=== PATIENT | female | born 1975 | race Two or more races ===

== ENCOUNTER 2020-05-04 11:08 | Outpatient (REF) | payer MEDICAID, SELFPAY ==
--- NOTE | 2020-05-04 11:16 | XR_ITS ---
EXAMINATION: XR SHOULDER, RIGHT CLINICAL INFORMATION: Pain. COMPARISON: None TECHNIQUE: AP external rotation, Grashey, scapular Y, and axillary views of the right shoulder. FINDINGS: The bones and soft tissues are normal. No fracture. Glenohumeral and acromioclavicular alignment is anatomic with normal joint space. There is a very small distal acromial undersurface osteophyte. No abnormal soft tissue calcifications. IMPRESSION: 1. No fracture or dislocation is seen. 2. There is a very small distal acromial undersurface osteophyte, which can be associated with rotator cuff impingement.
== END 2020-05-04 11:09 | disposition home or self-care (01) ==
LOC: HO.XRAY 11:08
PROVIDERS: PCP Internal Medicine; Visit Provider Emergency Medicine
DX: M25.511 Pain in right shoulder (principal)
CPT/HCPCS: 73030

== ENCOUNTER 2020-05-17 14:36 | Outpatient (REF) | payer MEDICAID, SELFPAY ==
--- NOTE | 2020-05-17 14:37 | MR_ITS ---
EXAMINATION: MR SHOULDER WITHOUT CONTRAST, RIGHT CLINICAL INFORMATION: Right shoulder pain COMPARISON: Radiographs 05/04/2020 TECHNIQUE: MRI of the shoulder without contrast was performed on a high-field scanner. FINDINGS: ROTATOR CUFF: Intact. No muscle atrophy or fatty infiltration. BICEPS: Normal. CORACOACROMIAL ARCH: The undersurface of the acromion is flat with no subacromial spur. There is prominent marrow edema of the distal clavicle with mild capsular edema which may represent early osteolysis. This is nonspecific and may be posttraumatic or metabolic. LABRUM/CAPSULE: Normal. GLENOHUMERAL JOINT/MARROW: No cartilage defect or joint effusion. IMPRESSION: Prominent bone marrow edema of the distal clavicle, with capsular edema. This may be posttraumatic or represent nonspecific early osteolysis. Otherwise unremarkable. No rotator cuff tear.
== END 2020-05-17 14:37 | disposition home or self-care (01) ==
LOC: HO.MRI 14:36
PROVIDERS: PCP Internal Medicine; Visit Provider Emergency Medicine
DX: M25.511 Pain in right shoulder (principal)
CPT/HCPCS: 73221

== ENCOUNTER → 2020-05-23 08:49 | Outpatient (BNVA) | payer MEDICAID, SELFPAY | PROVIDERS: Visit Provider Orthopaedic Surgery | DX: M75.01 Adhesive capsulitis of right shoulder (principal); M75.41 Impingement syndrome of right shoulder | CPT/HCPCS: 99204; 99212 ==

== ENCOUNTER 2020-06-29 14:40 | Outpatient (RCR) | payer MEDICAID, SELFPAY ==
--- NOTE | 2020-06-30 15:19 | MHC.PT.EP ---
[facility] [place] Office [place] Office [place] Office [address] [phone] F: [phone] F: [phone] F: [phone] F: [phone] Physical Therapy Plan of Care Date of Evaluation: 06/29/20 Date of Surgery: NA Diagnosis: IMPINGEMENT SYNDROME OF RIGHT SHOULDER Assessment: LEN IS A PLEASANT 44 YO FEMALE WITH INCREASING RIGHT ANTERIOR SHOULDER AND CHEST PAIN X 2 MONTHS. INITIALLY PAIN WAS IN POSTERIOR SHOULDER BUT SHE WAS ABLE TO ERFORM THEREX AND STRETCHES AT HOME WHICH SHE REPORTS SIGNIFICANTLY INCREASED HER ROM AND STRENGTH BUT PAIN IS NOW LOCATED IN ANTERIOR CHEST AND SHOULDER. IMPAIRMENTS INCLUDE DECREASED UPPER EXTREMITY ROM AND STRENGTH, ALTERED POSTURE AND POSTIONING, MUSCULAR LENGTH AND STRENGTH IMBALANCES. FUNCTIONAL LIMITATIONS INCLUDE DECREASED ABILITY TO PERFORM ADLs, HOMEMAKING AND WORK TASKS, DECREASED ABILITY TO PERFORM LIFTING, REACHING, PUSHING AN DPULLING. SHE REPORTS DISRUPTED SLEEP AND DECREASED PARTICIPATION IN RECREATIONAL ACTIVITIES. CO-MORBIDIES INCLUDE SCIATICA AND CURRENT LEFT OVARIAN CYST - OOPHERECTOMY SCHEDULED FOR FRIDAY. Frequency and Duration: The patient will be seen 2 X WEEK FOR 5 WEEKS Short Term Goals: INDEPENDENCE WITH HEP AND SELF MANAGEMENT OF SYMPTOMS IN 2 WEEKS [employer] Goals: FULL, PAIN FREE SHOULDER ROM IN [address] POBJECT O AT LEAST 3# ON SHELF ABOVE SHOULDER HEIGHT IN 5 WEEKS TO PERFORM ALL ADLs WITH PAIN NO GREATER THAN 2/10 IN 5 WEEKS Treatment Plan: Modalities to reduce pain, spasms and effusion. Manual therapy to restore motion and function. Therapeutic exercise to improve strength and flexibility. Neuromuscular re-education for posture and balance. Therapeutic activities to return to functional activities of daily living. Please sign and return to therapist. Thank you for your referral.
--- NOTE | 2020-07-27 09:01 | MHC.PT.DC ---
[facility] [place] Office [place] Office [place] Office [address] Velma Shanks 140 [facility] [phone] F: [phone] F: [phone] F: [phone] F: [phone] Physical Therapy Discharge Report Diagnosis: IMPINGEMENT SYNDROME OF RIGHT SHOULDER Date of Surgery: NA Date of Evaluation: 06/29/20 Date of Discharge: 07/01/20 Treatments to Date: 1 Cancellations to Date: No Shows to Date: Discharge Status: Discharge Summary: ATTENDED EVALUATION ONLY, CANCELLED REMAINING VISITS DUE TO HOSPITALIZATION. Electronically signed by: EDSON ALARCON PT, DPT Please sign and return to therapist. Thank you for your referral.
== END 2020-07-27 09:07 | disposition other institution (70) ==
LOC: HO.PT 14:40
PROVIDERS: PCP Internal Medicine; Visit Provider Orthopaedic Surgery
DX: M75.41 Impingement syndrome of right shoulder (principal)
CPT/HCPCS: 97162

== ENCOUNTER → 2020-09-01 11:05 | Outpatient (BNVA) | payer MEDICAID, SELFPAY | PROVIDERS: Visit Provider Internal Medicine | DX: N39.0 Urinary tract infection, site not specified (principal); Z87.440 Personal history of urinary (tract) infections | CPT/HCPCS: 99212 ==

== ENCOUNTER 2020-09-04 17:08 | Outpatient (REF) | payer MEDICAID, SELFPAY ==
[2020-09-04 17:57] LABS: Glucose Urine UA NEG (NEG); Leukocyte Esterase Urine NEG (NEG); Nitrite Urine NEG (NEG); Specific Gravity - Urine >= 1.030 (1.005-1.025); Urine Blood 1+ (NEG); Urine Ketones NEG (NEG); Urine Protein NEG (NEG-TRACE)
[2020-09-04 18:03] LABS: Anion Gap 12 (12-20); Blood Urea Nitrogen 9 mg/dL (9-16); Calcium 8.4 mg/dL (8.4-10.2); Carbon Dioxide 25 mmol/L (22-29); Chloride 106 mmol/L (96-108); Estimated Glomerular Filt Rate > 60; Glucose Random 124 mg/dL (60-115); Sodium 139 mmol/L (135-145)
[2020-09-04 18:21] LABS: Bacteria Urine 4+ /LPF; Mucus Urine 4+ /LPF; Squamous Epithelial Cell Urine 2+ /LPF
[2020-09-04 18:22] LABS: Appearance Urine HAZY; Color Urine YELLOW
== END 2020-09-04 17:09 | disposition home or self-care (01) ==
LOC: HO.LAB 17:08
PROVIDERS: PCP Internal Medicine; Visit Provider Internal Medicine
DX: N39.0 Urinary tract infection, site not specified (principal)
CPT/HCPCS: 36415; 80048; 81001; 87086; 87088; 87186

== ENCOUNTER → 2020-09-08 13:22 | Outpatient (BNVA) | payer MEDICAID, SELFPAY | PROVIDERS: Visit Provider Internal Medicine ==

== ENCOUNTER 2020-12-04 15:15 | Emergency (ER) | payer MEDICAID, SELFPAY ==
--- NOTE | ~2020-12-04 | CT_ITS ---
EXAMINATION: CT ABDOMEN AND PELVIS WITH CONTRAST CLINICAL INFORMATION: severe diarrhea, abdominal pain, vomiting COMPARISON: 11/26/2019 TECHNIQUE: Multidetector volumetric imaging was performed from the superior aspect of the liver through the pubic symphysis following administration of 100 mL Omnipaque 350 intravenous contrast. Sagittal and coronal reformatted images were obtained on the technologist workstation.. This CT examination was performed using dose optimization techniques as appropriate, variously including the following: *Automated exposure control *Adjustment of mA and/or kV according to patient size (this includes techniques or standardized protocols for targeted exams where dose is matched to indication/reason for exam; i.e. extremities or head) *Use of iterative reconstruction technique DLP: 547 mGy-cm FINDINGS: LUNG BASES: The visualized lung bases are unremarkable. LIVER, GALLBLADDER, AND BILIARY TREE: The liver is normal in size, shape, and attenuation. No focal hepatic lesion or biliary ductal dilatation is present. The gallbladder is unremarkable with no evidence of radiopaque gallstones, gallbladder wall thickening, or obvious pericholecystic inflammatory changes. PANCREAS: Unremarkable. SPLEEN: Unremarkable. ADRENAL GLANDS: Unremarkable. KIDNEYS AND URETERS: The kidneys are normal in size, shape, and attenuation. No hydronephrosis, hydroureter, or calculi seen. No perinephric stranding. BLADDER: Decompressed but otherwise unremarkable GASTROINTESTINAL TRACT: The distal colon to rectum are decompressed which makes evaluation for subtle wall thickening difficult. I do not appreciate any pericolonic inflammatory changes. There are a few scattered colonic diverticula but no evidence for focal diverticulitis. Normal-appearing appendix in the right lower quadrant. Visualized small bowel is unremarkable ABDOMINAL WALL: Postoperative changes in the midline anterior abdominal wall LYMPHOVASCULAR STRUCTURES: No lymphadenopathy. The aorta is unremarkable. Incidental phleboliths within the remaining gonadal veins bilaterally PELVIC VISCERA: Patient appears to be status post supracervical hysterectomy with slight fullness in the region of the cervix but this appearance is similar to the 09/26/2019 CT scan OSSEOUS STRUCTURES: Unremarkable. CT/CT abdomen pelvis w con IMPRESSION: The distal colon and rectum are decompressed and difficult to evaluate for any subtle underlying wall thickening but I do not appreciate any pericolonic inflammatory changes. No obstructive changes to the bowel with scattered diverticulosis.
[2020-12-04 15:24] VITALS: BP 141/82; PULSE 80; RESP 18; TEMP 37; O2SAT 98; BMI 26.5
[2020-12-04 15:43] LABS: Glucose Urine UA NEG (NEG); Leukocyte Esterase Urine NEG (NEG); Nitrite Urine NEG (NEG); PH 5.5 (5.0-8.0); UPreg QC Valid YES; Urine Blood TRACE (NEG); Urine Ketones NEG (NEG); Urine Pregnancy NEGATIVE (NEGATIVE); Urine Protein NEG (NEG-TRACE)
[2020-12-04 15:44] LABS: Appearance Urine CLEAR; Color Urine YELLOW
[2020-12-04] MEDS: 0.9 % Sodium Chloride 1,000 ML 999 ML IVCONT (15:49)
[2020-12-04 15:51] LABS: RBC Urine 0 /HPF (0); Squamous Epithelial Cell Urine TRACE /LPF; WBC Urine 0 /HPF (0-4)
[2020-12-04 15:55] LABS: MANUAL DIFF FLAG NO
[2020-12-04 15:58] LABS: Basophils Absolute Auto 0.1 X10*3/uL (0.0-0.2); Basophils Percent Auto 0.8 % (0-2); Eosinophils Absolute Auto 0.1 X10*3/uL (0.0-0.4); Eosinophils Percent Auto 0.8 % (0-4); Hematocrit 34.6 % (37-47); Hemoglobin 11.1 g/dl (12.0-16.0); Imm Gran Abs Auto 0.07 X10*3/uL (0.00-0.03); Imm Gran Pct Auto 0.5 % (0.0-0.4); Lymphocytes Absolute Auto 3.3 X10*3/uL (1.2-4.9); Lymphocytes Percent Auto 23.1 % (20-40); Mean Corpuscular HGB Conc 32.1 g/dl (31.0-35.0); Mean Corpuscular Hemoglobin 26.4 pg (27.0-33.0); Mean Corpuscular Volume 82.4 fL (80-98); Mean Platelet Volume 9.1 fL (9.4-12.3); Monocytes Absolute Auto 0.8 X10*3/uL (0.1-1.2); Monocytes Percent Auto 5.6 % (2-11); Neutrophils Absolute Auto 9.8 X10*3/uL (2.0-8.3); Neutrophils Percent Auto 69.2 % (45-73); Platelet Count 514 X10*3/uL (160-400); Red Cell Distribution Width 14.7 % (11.0-16.0); White Blood Count 14.2 X10*3/uL (4.8-10.8)
--- NOTE | 2020-12-04 16:01 | ED_ITS ---
HPI - Nausea/Vomiting/Diarrhea General Chief complaint: Nausea/Vomiting/Diarrhea Stated complaint: DIARRHEA Time Seen by Provider: 12/04/20 15:30 Source: patient Mode of arrival: ambulatory Limitations: no limitations History of Present Illness HPI Narrative: 45 y/o female with history of chronic UTI's on Macrobid s uppression therapy daily, history of IBS who presents to the ED with 16 days of profuse watery diarrhea central abdominal pain. She has had 10+ episodes of diarrhea per day. She states the consistency and color of her BM's varies from yellow to green to brown. She denies black or bloody BM's but states she can smell blood in her stool. No fever or chills, no urinary symptoms. She has nausea with vomiting yesterday but not today. MD elicited complaint: nausea, diarrhea and abdominal pain Onset (ago): day(s) (16) Description of diarrhea: mucus, watery and loose Associated nausea: Yes Associated abdominal pain: Yes Location of pain: epigastric and periumbilical Pain consistency: intermittent Severity: moderate Quality: cramping Exacerbating factors: bowel movement Relieving factors: none Context: recent antibiotic use Associated symptoms: nausea/vomiting Related Data Home Medications Medication Instructions Recorded Confirmed albuterol sulfate 2.5 mg/0.5 mL 5 mg INHALATION QID 05/17/20 09/08/20 solution for nebulization cetirizine 10 mg tablet 10 mg PO DAILY 05/17/20 09/08/20 montelukast 10 mg tablet 10 mg PO DAILY 05/17/20 09/08/20 omeprazole 20 mg capsule,delayed 20 mg PO DAILY 05/17/20 09/08/20 release Previous Rx's Medication Instructions Recorded nitrofurantoin macrocrystal 50 mg 50 mg PO BEDTIME 30 Days #30 cap 09/08/20 capsule nitrofurantoin 100 mg PO BID 14 Days #28 cap 09/08/20 monohydrate/macrocrystals 100 mg capsule ondansetron HCl [Zofran] 4 mg PO Q8H PRN #10 tab 12/04/20 vancomycin 250 mg PO QID 10 Days #40 cap 12/04/20 Allergies Allergy/AdvReac Type Severity Reaction Status Date / Time levofloxacin [From Levaquin] Allergy Intermediate INTERACTED Verified 12/04/20 15:23 W/ANTI DEPRESSANT morphine [MORPHINE] Allergy Intermediate ITCHING, Verified 12/04/20 15:23 HIVES trazodone [TRAZODONE] Allergy Mild TACHYCARDIA Verified 12/04/20 15:23 amitriptyline Allergy Unknown Unknown Verified 12/04/20 15:23 citalopram Allergy Unknown Unknown Verified 12/04/20 15:23 escitalopram Allergy Unknown Unknown Verified 12/04/20 15:23 ibuprofen Allergy Unknown Unknown Verified 12/04/20 15:23 ketorolac Allergy Unknown Unknown Verified 12/04/20 15:23 sertraline Allergy Unknown Unknown Verified 12/04/20 15:23 Sulfa (Sulfonamide Allergy Unknown Unknown Verified 12/04/20 15:23 Antibiotics) topiramate Allergy Unknown Unknown Verified 12/04/20 15:23 trimethoprim Allergy Unknown Unknown Verified 12/04/20 15:23 zolpidem Allergy Unknown Unknown Verified 12/04/20 15:23 NSAIDS (Non-Steroidal AdvReac Severe HYPEREMESIS Verified 12/04/20 15:23 Anti-Inflamma [NSAIDS (NON-STEROIDAL ANTI-INFLAMMA] From Celexa Allergy Intermediate INTERACTS Uncoded 04/13/20 16:15 W/LEVAQUIN ANTIDEPRESENT Allergy Unknown Unknown Uncoded 05/17/20 12:28 Sulfamethoxazole Allergy Unknown Unknown Uncoded 05/17/20 12:28 toradol Allergy Unknown Unknown Uncoded 05/17/20 12:28 From Ambien AdvReac Severe TACHYCARDIA Uncoded 04/13/20 16:15 From Ultram AdvReac Severe TACHYCARDIA Uncoded 04/13/20 16:15 From ZOLOFT AdvReac Severe TACHYCARDIA Uncoded 04/13/20 16:15 From TORADOL AdvReac Mild STOMACH Uncoded 04/13/20 16:15 UPSET Review of Systems Review of Systems: Constitutional: No Fever, No Chills ENT/Mouth: No sore throat, No Rhinorrhea, No Swallowing Difficulty Cardiovascular: No Chest Pain, No SOB Respiratory: No Cough, No Sputum Gastrointestinal: + Nausea, + Vomiting, + Diarrhea, + abdominal Pain, No Hematochezia, No Melena Genitourinary: No Dysuria, No Urinary Frequency, No Hematuria Musculoskeletal: No joint pain, No Myalgias Skin: No Skin Lesions, No rash Neuro: + Weakness, No Numbness, No Dizziness, + Headache Psych: No Anxiety/Panic, No Depression Heme/Lymph: No Bruising, No Lymphadenopathy Gastrointestinal: Gastrointestinal: Reports nausea PMFSH Past Medical History Attestation statement: The following information was validated with the patient. Medical History (Updated 12/04/20 @ 20:02 by ARLEEN Corley) Fibromyalgia Recurrent UTI Unspecified internal derangement of unspecified knee Surgical History History of partial hysterectomy Previous section Family History Family History Father No problems noted. Mother No problems noted. 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 Oriented X3. No acute distress. Eyes: Pupils equal, round and reactive to light. ENT: Pharynx normal. Neck: Normal inspection. Neck supple. CVS: Normal heart rate and rhythm. Pulses normal. Respiratory: No respiratory distress. Breath sounds normal. Abdomen: Soft, non-distended. Mild tenderness centrally without rebound or gua rding, hyperactive +BS x4 Skin: Skin warm and dry. Normal skin color. Normal skin turgor. No rashes. Extremities: No lower extremity edema. Neuro: Oriented X 3. No motor deficit. No sensory deficit. Course Course Course Narrative: 45 y/o female presenting with nausea, vomiting and profuse diarrhea for the last 2 weeks. High clinical suspicion for C diff given she is on chronic antibiotics. Stools studies ordered as well as basic labs. Reevaluation(s) Reevaluation #1: Labs showing WBC 14.2K (chronically elevated), chemistry is unremarekable. Stools studies pending. Dry heaving now - IV reglan ordered. Reevaluation #2: C diff positive. Nausea resolved. Tolerating PO. She does not want to be admitted. She is stable for d/c home with PO antibiotics. Case d/w Dr. Lobo goldsmith TT - recommend patient STOP macrobid for now. this was relayed to the patient and she was encouraged to f/u with ID and her PCP. Consultations Consultation #1: Dr. Diamond - ID MDM - Nausea/Vomiting/Diarrhea Lab Data Result diagrams: 12/04/20 15:48 12/04/20 15:48 Labs: Lab Results 12/04/20 12/04/20 12/04/20 Range/Units 15:34 15:34 15:48 WBC 14.2 H (4.8-10.8) X10*3/uL RBC 4.20 (4.20-5.50) X10*6/uL Hgb 11.1 L (12.0-16.0) g/dl Hct 34.6 L (37-47) % MCV 82.4 (80-98) fL MCH 26.4 L (27.0-33.0) pg MCHC 32.1 (31.0-35.0) g/dl RDW 14.7 (11.0-16.0) % Plt Count 514 H (160-400) X10*3/uL MPV 9.1 L (9.4-12.3) fL Immature Gran % (Auto) 0.5 H (0.0-0.4) % Neut % (Auto) 69.2 (45-73) % Lymph % (Auto) 23.1 (20-40) % [place] % (Auto) 5.6 (2-11) % Eos % (Auto) 0.8 (0-4) % Baso % (Auto) 0.8 (0-2) % Lymph # (Auto) 3.3 (1.2-4.9) X10*3/uL [place] # (Auto) 0.8 (0.1-1.2) X10*3/uL Eos # (Auto) 0.1 (0.0-0.4) X10*3/uL Baso # (Auto) 0.1 (0.0-0.2) X10*3/uL Abs Immat Gran (auto) 0.07 H (0.00-0.03) X10*3/uL Absolute Neuts (auto) 9.8 H (2.0-8.3) X10*3/uL Absolute Nucleated RBC 0.000 (0.0-0.012) X10*3/uL Nucleated RBC % (auto) 0.0 (0.0-0.2) /100WBC Sodium (135-145) mmol/L Potassium (3.3-5.1) mmol/L Chloride (96-108) mmol/L Carbon Dioxide (22-29) mmol/L Anion Gap (12-20) BUN (9-16) mg/dL Creatinine (0.5-1.4) mg/dL Estim Creat Clear Calc Estimated GFR Random Glucose (60-115) mg/dL Calcium (8.4-10.2) mg/dL Magnesium (1.6-2.6) mg/dL Total Bilirubin (0.0-1.0) mg/dL Direct Bilirubin (0.0-0.5) mg/dL AST (5-31) U/L ALT (0-31) U/L Alkaline Phosphatase (39-117) U/L Total Protein (6.5-8.0) g/dL Albumin (3.5-5.0) g/dL Lipase (8-78) U/L Urine Color YELLOW Urine Appearance CLEAR Urine pH 5.5 (5.0-8.0) Ur Specific [place] 1.010 (1.005-1.025) Urine Protein NEG (NEG-TRACE) MG/DL Urine Glucose (UA) NEG (NEG) MG/DL Urine Ketones NEG (NEG) MG/DL Urine Blood TRACE (NEG) Urine Nitrite NEG (NEG) Ur Leukocyte Esterase NEG (NEG) Urine RBC 0 (0) /HPF Urine WBC 0 (0-4) /HPF Ur Squamous Epith Cells TRACE /LPF Urine Bacteria NONE /LPF Urine Test NEGATIVE (NEGATIVE) Stool Occult Blood (NEGATIVE) Stool Leukocytes, Qual (NEGATIVE) C. difficile Toxin A&B (Negative) C. difficile Antigen (Negative) C. difficile Interpret COVID-19 (ANNY) (Negative) COVID-19 Clin Com 12/04/20 12/04/20 12/04/20 Range/Units 15:48 15:48 18:00 WBC (4.8-10.8) X10*3/uL RBC (4.20-5.50) X10*6/uL Hgb (12.0-16.0) g/dl Hct (37-47) % MCV (80-98) fL MCH (27.0-33.0) pg MCHC (31.0-35.0) g/dl RDW (11.0-16.0) % Plt Count (160-400) X10*3/uL MPV (9.4-12.3) fL Immature Gran % (Auto) (0.0-0.4) % Neut % (Auto) (45-73) % Lymph % (Auto) (20-40) % [place] % (Auto) (2-11) % Eos % (Auto) (0-4) % Baso % (Auto) (0-2) % Lymph # (Auto) (1.2-4.9) X10*3/uL [place] # (Auto) (0.1-1.2) X10*3/uL Eos # (Auto) (0.0-0.4) X10*3/uL Baso # (Auto) (0.0-0.2) X10*3/uL Abs Immat Gran (auto) (0.00-0.03) X10*3/uL Absolute Neuts (auto) (2.0-8.3) X10*3/uL Absolute Nucleated RBC (0.0-0.012) X10*3/uL Nucleated RBC % (auto) (0.0-0.2) /100WBC Sodium 137 (135-145) mmol/L Potassium 3.6 (3.3-5.1) mmol/L Chloride 104 (96-108) mmol/L Carbon Dioxide 24 (22-29) mmol/L Anion Gap 13 (12-20) BUN 6 L (9-16) mg/dL Creatinine 0.78 (0.5-1.4) mg/dL Estim Creat Clear Calc 85.2 Estimated GFR > 60 Random Glucose 88 (60-115) mg/dL Calcium 8.8 (8.4-10.2) mg/dL Magnesium 2.1 (1.6-2.6) mg/dL Total Bilirubin 0.3 (0.0-1.0) mg/dL Direct Bilirubin < 0.2 (0.0-0.5) mg/dL AST 13 (5-31) U/L ALT 17 (0-31) U/L Alkaline Phosphatase 73 (39-117) U/L Total Protein 7.5 (6.5-8.0) g/dL Albumin 4.1 (3.5-5.0) g/dL Lipase 16 (8-78) U/L Urine Color Urine Appearance Urine pH (5.0-8.0) Ur Specific [place] (1.005-1.025) Urine Protein (NEG-TRACE) MG/DL Urine Glucose (UA) (NEG) MG/DL Urine Ketones (NEG) MG/DL Urine Blood (NEG) Urine Nitrite (NEG) Ur Leukocyte Esterase (NEG) Urine RBC (0) /HPF Urine WBC (0-4) /HPF Ur Squamous Epith Cells /LPF Urine Bacteria /LPF Urine Test (NEGATIVE) Stool Occult Blood NEGATIVE (NEGATIVE) Stool Leukocytes, Qual (NEGATIVE) C. difficile Toxin A&B (Negative) C. difficile Antigen (Negative) C. difficile Interpret COVID-19 (ANNY) (Negative) COVID-19 Clin Com 12/04/20 12/04/20 12/04/20 Range/Units 18:00 18:00 18:44 WBC (4.8-10.8) X10*3/uL RBC (4.20-5.50) X10*6/uL Hgb (12.0-16.0) g/dl Hct (37-47) % MCV (80-98) fL MCH (27.0-33.0) pg MCHC (31.0-35.0) g/dl RDW (11.0-16.0) % Plt Count (160-400) X10*3/uL MPV (9.4-12.3) fL Immature Gran % (Auto) (0.0-0.4) % Neut % (Auto) (45-73) % Lymph % (Auto) (20-40) % [place] % (Auto) (2-11) % Eos % (Auto) (0-4) % Baso % (Auto) (0-2) % Lymph # (Auto) (1.2-4.9) X10*3/uL [place] # (Auto) (0.1-1.2) X10*3/uL Eos # (Auto) (0.0-0.4) X10*3/uL Baso # (Auto) (0.0-0.2) X10*3/uL Abs Immat Gran (auto) (0.00-0.03) X10*3/uL Absolute Neuts (auto) (2.0-8.3) X10*3/uL Absolute Nucleated RBC (0.0-0.012) X10*3/uL Nucleated RBC % (auto) (0.0-0.2) /100WBC Sodium (135-145) mmol/L Potassium (3.3-5.1) mmol/L Chloride (96-108) mmol/L Carbon Dioxide (22-29) mmol/L Anion Gap (12-20) BUN (9-16) mg/dL Creatinine (0.5-1.4) mg/dL Estim Creat Clear Calc Estimated GFR Random Glucose (60-115) mg/dL Calcium (8.4-10.2) mg/dL Magnesium (1.6-2.6) mg/dL Total Bilirubin (0.0-1.0) mg/dL Direct Bilirubin (0.0-0.5) mg/dL AST (5-31) U/L ALT (0-31) U/L Alkaline Phosphatase (39-117) U/L Total Protein (6.5-8.0) g/dL Albumin (3.5-5.0) g/dL Lipase (8-78) U/L Urine Color Urine Appearance Urine pH (5.0-8.0) Ur Specific [place] (1.005-1.025) Urine Protein (NEG-TRACE) MG/DL Urine Glucose (UA) (NEG) MG/DL Urine Ketones (NEG) MG/DL Urine Blood (NEG) Urine Nitrite (NEG) Ur Leukocyte Esterase (NEG) Urine RBC (0) /HPF Urine WBC (0-4) /HPF Ur Squamous Epith Cells /LPF Urine Bacteria /LPF Urine Test (NEGATIVE) Stool Occult Blood (NEGATIVE) Stool Leukocytes, Qual NEGATIVE (NEGATIVE) C. difficile Toxin A&B Negative (Negative) C. difficile Antigen Positive A (Negative) C. difficile Interpret PCR to be performed COVID-19 (ANNY) Negative (Negative) COVID-19 Clin Com See Note Discharge Plan Discharge Clinical Impression: C. difficile diarrhea Patient Disposition: Home, Self-Care Instructions: C. Diff (Clostridioides Difficile) Infection (ED) Additional Instructions: Take the prescribed antibiotic as directed for 10 days. Recommend starting a Probiotic - found over the counter. Follow up with Dr. Diamond for further management of your antibiotics. If you have worsening symptoms come back to the ER for further evaluation. Prescriptions: New vancomycin 250 mg capsule 250 mg PO QID 10 Days Qty: 40 RF: 0 ondansetron HCl [Zofran] 4 mg tablet 4 mg PO Q8H PRN (Reason: nausea and vomiting) Qty: 10 RF: 0 No Action montelukast [Singulair] 10 mg tablet 10 mg PO DAILY RF: 0 cetirizine [All Day Allergy (cetirizine)] 10 mg tablet 10 mg PO DAILY RF: 0 albuterol sulfate 2.5 mg/0.5 mL solution for nebulization 5 mg inhalation QID RF: 0 omeprazole 20 mg capsule,delayed release(DR/EC) 20 mg PO DAILY RF: 0 nitrofurantoin monohyd/m-cryst [Macrobid] 100 mg capsule 100 mg PO BID 14 Days Qty: 28 RF: 0 nitrofurantoin macrocrystal [Macrodantin] 50 mg capsule 50 mg PO BEDTIME 30 Days Qty: 30 RF: 5 Interventions: ED Discharge Assessment Last Done: 12/04/20 20:07 Discharge Date/Time: 12/04/20 20:08
[2020-12-04 16:05] VITALS: RESP 18
[2020-12-04] MEDS: fentaNYL citrate/PF 100 MCG/2 ML VIAL 50 MCG IVPUSH (16:05)
[2020-12-04 16:20] LABS: Magnesium 2.1 mg/dL (1.6-2.6)
[2020-12-04 16:21] LABS: Alanine Aminotransferase 17 U/L (0-31); Albumin Level 4.1 g/dL (3.5-5.0); Alkaline Phosphatase 73 U/L (39-117); Anion Gap 13 (12-20); Aspartate Amino Transferase 13 U/L (5-31); Bilirubin Direct < 0.2 mg/dL (0.0-0.5); Bilirubin Total 0.3 mg/dL (0.0-1.0); Blood Urea Nitrogen 6 mg/dL (9-16); Calcium 8.8 mg/dL (8.4-10.2); Carbon Dioxide 24 mmol/L (22-29); Chloride 104 mmol/L (96-108); Creatinine Clr Calc Pharmacy 85.2; Estimated Glomerular Filt Rate > 60; Glucose Random 88 mg/dL (60-115); Lipase 16 U/L (8-78); Potassium 3.6 mmol/L (3.3-5.1); Sodium 137 mmol/L (135-145); Total Protein 7.5 g/dL (6.5-8.0)
[2020-12-04] MEDS: ondansetron HCL 4 MG/2 ML VIAL IVPUSH (16:36)
[2020-12-04] MEDS: iohexoL 350 MG/ML 100 ML INFUS..BTL IV (17:15)
[2020-12-04] MEDS: Dicyclomine HCl 10 MG CAPSULE PO (18:10)
[2020-12-04 18:14] LABS: OBS1 NEGATIVE (NEGATIVE)
--- NOTE | 2020-12-04 18:14 | PC.NURSE ---
called pharmacy for tramaine
[2020-12-04 18:15] LABS: OBS Int Ctl Valid YES
[2020-12-04] MEDS: Metoclopramide HCl 10 MG/2 ML VIAL IVPUSH (18:44)
[2020-12-04 18:49] LABS: Leukocytes Stool Qualitative NEGATIVE (NEGATIVE)
[2020-12-04 18:51] VITALS: BP 125/61; PULSE 85; RESP 16; TEMP 36.6; O2SAT 100
[2020-12-04 19:01] LABS: CDIFF Ag Positive (Negative); CDIFF Internal ctrl Dots and bkg OK (V); CDiff Toxin Negative (Negative)
[2020-12-04] MEDS: Bismuth Subsalicylate 262 MG TABLET 524 MG PO (19:10)
[2020-12-04] MEDS: vancomycin HCL 125 MG CAPSULE 500 MG PO (19:10)
[2020-12-04 19:29] LABS: COVID-19 Test Negative (Negative); IDNOW Serial# 9DD0AD1C
[2020-12-04 19:40] VITALS: BP 129/68; PULSE 75; RESP 18; TEMP 36.8; O2SAT 99
--- NOTE | 2020-12-04 20:04 | PC.NURSE ---
PT TOLERATING PO INTAKE W/OUT DIFFICULTY, AWARE/AGREEABLE TO PENDING D/C.
[2020-12-05 08:50] LABS: CDiff Gene PCR NEGATIVE (Negative)
== END 2020-12-04 20:08 | disposition home or self-care (01) ==
PROVIDERS: Physician Assistant; Emergency Provider Emergency Medicine; PCP Internal Medicine
DX: R19.7 Diarrhea, unspecified (principal); B96.7 Clostridium perfringens [C. perfringens] as the cause of diseases classified elsewhere; R11.2 Nausea with vomiting, unspecified; Z87.440 Personal history of urinary (tract) infections; Z79.2 Long term (current) use of antibiotics; Z20.822 Contact with and (suspected) exposure to COVID-19
CPT/HCPCS: 36415; 74177; 80048; 80076; 81001; 81025; 82272; 83690; 83735; 85025; 87045; 87046; 87324; 87449; 87493; 87635; 89055; 96361; 96374; 96375; 99284; J2405; J2765; J3010; Q9967

== ENCOUNTER 2020-12-20 12:50 | Emergency (ER) | payer MEDICAID, SELFPAY ==
[2020-12-20 13:41] VITALS: BP 135/83; PULSE 103; RESP 18; TEMP 37.1; O2SAT 97; BMI 26.5
[2020-12-20 14:31] LABS: MANUAL DIFF FLAG NO
[2020-12-20 14:33] LABS: Basophils Absolute Auto 0.1 X10*3/uL (0.0-0.2); Basophils Percent Auto 0.9 % (0-2); Eosinophils Absolute Auto 0.2 X10*3/uL (0.0-0.4); Eosinophils Percent Auto 1.5 % (0-4); Hematocrit 36.3 % (37-47); Hemoglobin 11.5 g/dl (12.0-16.0); Imm Gran Abs Auto 0.04 X10*3/uL (0.00-0.03); Imm Gran Pct Auto 0.3 % (0.0-0.4); Lymphocytes Absolute Auto 2.9 X10*3/uL (1.2-4.9); Lymphocytes Percent Auto 22.7 % (20-40); Mean Corpuscular HGB Conc 31.7 g/dl (31.0-35.0); Mean Corpuscular Hemoglobin 26.4 pg (27.0-33.0); Mean Corpuscular Volume 83.4 fL (80-98); Mean Platelet Volume 9.3 fL (9.4-12.3); Monocytes Absolute Auto 0.7 X10*3/uL (0.1-1.2); Monocytes Percent Auto 5.3 % (2-11); Neutrophils Percent Auto 69.3 % (45-73); Platelet Count 472 X10*3/uL (160-400); Red Blood Count 4.35 X10*6/uL (4.20-5.50); Red Cell Distribution Width 15.2 % (11.0-16.0); White Blood Count 12.9 X10*3/uL (4.8-10.8)
[2020-12-20 14:47] VITALS: BP 129/71; PULSE 74; RESP 18; TEMP 36.7; O2SAT 99
[2020-12-20 14:51] LABS: Appearance Urine HAZY; Color Urine YELLOW; Glucose Urine UA NEG (NEG); Leukocyte Esterase Urine NEG (NEG); Nitrite Urine NEG (NEG); Urine Blood TRACE (NEG); Urine Ketones NEG (NEG); Urine Protein NEG (NEG-TRACE)
[2020-12-20 14:57] LABS: Bacteria Urine 1+ /LPF; RBC Urine 0-2 /HPF (0); Squamous Epithelial Cell Urine 1+ /LPF; WBC Urine 0 /HPF (0-4)
[2020-12-20 15:09] LABS: Alanine Aminotransferase 34 U/L (0-31); Albumin Level 4.1 g/dL (3.5-5.0); Alkaline Phosphatase 82 U/L (39-117); Anion Gap 15 (12-20); Aspartate Amino Transferase 25 U/L (5-31); Bilirubin Total < 0.2 mg/dL (0.0-1.0); Blood Urea Nitrogen 9 mg/dL (9-16); Calcium 9.1 mg/dL (8.4-10.2); Carbon Dioxide 23 mmol/L (22-29); Chloride 102 mmol/L (96-108); Creatinine Clr Calc Pharmacy 92.3; Estimated Glomerular Filt Rate > 60; Glucose Random 87 mg/dL (60-115); Potassium 4.2 mmol/L (3.3-5.1); Sodium 136 mmol/L (135-145); Total Protein 7.5 g/dL (6.5-8.0)
--- NOTE | 2020-12-20 15:09 | ED.ABDPAIN ---
HPI - Abdominal Pain General Chief Complaint: Abdominal Pain Stated Complaint: severe stomach pain Time Seen by Provider: 12/20/20 15:09 Source: patient Mode of arrival: ambulatory Limitations: no limitations History of Present Illness HPI narrative: patient was treated for Cdiff starting December 01. she finished all her medication on December 11. over the past 2 days she has had severe epigastric pain MD elicited complaint: abdominal pain Pertinent past history: other (Cdiff) Onset (ago): day(s) (2) Pain Consistency: constant Location: epigastric Severity: moderate Quality: stabbing Radiation: none Exacerbating factors: nothing Relieving factors: nothing Associated symptoms: nausea Related Data Home Medications Medication Instructions Recorded Confirmed albuterol sulfate 2.5 mg/0.5 mL 5 mg INHALATION QID 05/17/20 09/08/20 solution for nebulization cetirizine 10 mg tablet 10 mg PO DAILY 05/17/20 09/08/20 montelukast 10 mg tablet 10 mg PO DAILY 05/17/20 09/08/20 omeprazole 20 mg capsule,delayed 20 mg PO DAILY 05/17/20 09/08/20 release Previous Rx's Medication Instructions Recorded nitrofurantoin macrocrystal 50 mg 50 mg PO BEDTIME 30 Days #30 cap 09/08/20 capsule nitrofurantoin 100 mg PO BID 14 Days #28 cap 09/08/20 monohydrate/macrocrystals 100 mg capsule ondansetron HCl [Zofran] 4 mg PO Q8H PRN #10 tab 12/04/20 vancomycin 250 mg PO QID 10 Days #40 cap 12/04/20 ondansetron HCl [Zofran] 4 mg PO Q8H PRN #10 tab 12/20/20 pantoprazole [Protonix] 40 mg PO DAILY #20 tab 12/20/20 Allergies Allergy/AdvReac Type Severity Reaction Status Date / Time levofloxacin [From Levaquin] Allergy Intermediate INTERACTED Verified 12/20/20 13:41 W/ANTI DEPRESSANT morphine [MORPHINE] Allergy Intermediate ITCHING, Verified 12/20/20 13:41 HIVES trazodone [TRAZODONE] Allergy Mild TACHYCARDIA Verified 12/20/20 13:41 amitriptyline Allergy Unknown Unknown Verified 12/20/20 13:41 citalopram Allergy Unknown Unknown Verified 12/20/20 13:41 escitalopram Allergy Unknown Unknown Verified 12/20/20 13:41 ibuprofen Allergy Unknown Unknown Verified 12/20/20 13:41 ketorolac Allergy Unknown Unknown Verified 12/20/20 13:41 sertraline Allergy Unknown Unknown Verified 12/20/20 13:41 Sulfa (Sulfonamide Allergy Unknown Unknown Verified 12/20/20 13:41 Antibiotics) topiramate Allergy Unknown Unknown Verified 12/20/20 13:41 trimethoprim Allergy Unknown Unknown Verified 12/20/20 13:41 zolpidem Allergy Unknown Unknown Verified 12/20/20 13:41 NSAIDS (Non-Steroidal AdvReac Severe HYPEREMESIS Verified 12/20/20 13:41 Anti-Inflamma [NSAIDS (NON-STEROIDAL ANTI-INFLAMMA] From Celexa Allergy Intermediate INTERACTS Uncoded 04/13/20 16:15 W/LEVAQUIN ANTIDEPRESENT Allergy Unknown Unknown Uncoded 05/17/20 12:28 Sulfamethoxazole Allergy Unknown Unknown Uncoded 05/17/20 12:28 toradol Allergy Unknown Unknown Uncoded 05/17/20 12:28 From Ambien AdvReac Severe TACHYCARDIA Uncoded 04/13/20 16:15 From Ultram AdvReac Severe TACHYCARDIA Uncoded 04/13/20 16:15 From ZOLOFT AdvReac Severe TACHYCARDIA Uncoded 04/13/20 16:15 From TORADOL AdvReac Mild STOMACH Uncoded 04/13/20 16:15 UPSET Review of Systems Constitutional: Reports no additional constitutional complaints Eyes: Reports no additional eye complaints Denies dizziness Cardiovascular: Reports no additional cardiovascular complaints Respiratory: Reports as per HPI Gastrointestinal: Reports no additional gastrointestinal complaints Genitourinary: Reports no additional female genitourinary complaints Musculoskeletal: Reports no additional musculoskeletal complaints Skin/Breast: Denies rash Reports system reviewed and no additional complaints, except as documented, Denies dizziness and Denies Sensory deficit (Neuro) Psychiatric: Denies anxiety Physical Exam Vital Signs: Vital Signs: Last Vital Signs Temp 99.0 F 12/20/20 16:00 Pulse 84 12/20/20 16:00 Resp 16 12/20/20 16:00 BP 122/65 12/20/20 16:00 Pulse Ox 97 12/20/20 16:00 Body Mass Index 26.5 Const: Other: tearful, crying in pain Nutritional Appearance: average body habitus Orientation/consciousness: oriented to person and patient oriented x3 Limitations: no limitations HENMT: Head: Yes normal to inspection Ears: external ears normal General nose exam: Normal external nose present Mouth: Normal oral and palatal mucosa present and oropharynx normal Throat: Yes posterior oropharynx normal Eyes: General: appearance normal, both eyes and all related structures Neck: Other: supple Neck: Yes normal visual inspection Chest: Chest palpation & inspection: normal inspection of the chest Resp: Auscultation: clear to auscultation bilaterally Cardio: Jugular venous distension: no JVD Rate: regular rate Rhythm: regular rhythm Heart sounds: S1 normal heart sound present and S2 normal heart sound present GI: Inspection: Yes normal to inspection Palpation (GI): Soft to palpation, nontender and No hepatosplenomegaly present Auscultation: normal bowel sounds : General: Yes no CVA tenderness Back/Spine/Pelvis: Back: no CVA tenderness Skin: General skin exam: no rashes or lesions noted Neuro: General: oriented to person and patient oriented x3 Cranial nerves: Yes CN's II-XII intact bilaterally Motor exam (neuro): 5/5 motor strength present throughout Sensory Exam: No Sensory deficit (Neuro) Extrem: General: Yes normal to inspection Psych: Appearance: grossly normal Course Course Course Narrative: labs and physical normal. Patient with likely gastritis, not related to her recent Cdiff MDM - Abdominal Pain Lab Data Result diagrams: 12/20/20 14:26 12/20/20 14:26 Labs: Lab Results 12/20/20 12/20/20 12/20/20 Range/Units 14:09 14:26 14:26 WBC 12.9 H (4.8-10.8) X10*3/uL RBC 4.35 (4.20-5.50) X10*6/uL Hgb 11.5 L (12.0-16.0) g/dl Hct 36.3 L (37-47) % MCV 83.4 (80-98) fL MCH 26.4 L (27.0-33.0) pg MCHC 31.7 (31.0-35.0) g/dl RDW 15.2 (11.0-16.0) % Plt Count 472 H (160-400) X10*3/uL MPV 9.3 L (9.4-12.3) fL Immature Gran % (Auto) 0.3 (0.0-0.4) % Neut % (Auto) 69.3 (45-73) % Lymph % (Auto) 22.7 (20-40) % [place] % (Auto) 5.3 (2-11) % Eos % (Auto) 1.5 (0-4) % Baso % (Auto) 0.9 (0-2) % Lymph # (Auto) 2.9 (1.2-4.9) X10*3/uL [place] # (Auto) 0.7 (0.1-1.2) X10*3/uL Eos # (Auto) 0.2 (0.0-0.4) X10*3/uL Baso # (Auto) 0.1 (0.0-0.2) X10*3/uL Abs Immat Gran (auto) 0.04 H (0.00-0.03) X10*3/uL Absolute Neuts (auto) 9.0 H (2.0-8.3) X10*3/uL Absolute Nucleated RBC 0.000 (0.0-0.012) X10*3/uL Nucleated RBC % (auto) 0.0 (0.0-0.2) /100WBC Hold Blue Top SEE NOTE Sodium (135-145) mmol/L Potassium (3.3-5.1) mmol/L Chloride (96-108) mmol/L Carbon Dioxide (22-29) mmol/L Anion Gap (12-20) BUN (9-16) mg/dL Creatinine (0.5-1.4) mg/dL Estim Creat Clear Calc Estimated GFR Random Glucose (60-115) mg/dL Calcium (8.4-10.2) mg/dL Total Bilirubin (0.0-1.0) mg/dL Direct Bilirubin (0.0-0.5) mg/dL AST (5-31) U/L ALT (0-31) U/L Alkaline Phosphatase (39-117) U/L Total Protein (6.5-8.0) g/dL Albumin (3.5-5.0) g/dL Lipase (8-78) U/L Urine Color YELLOW Urine Appearance HAZY Urine pH 6.0 (5.0-8.0) Ur Specific [place] 1.020 (1.005-1.025) Urine Protein NEG (NEG-TRACE) MG/DL Urine Glucose (UA) NEG (NEG) MG/DL Urine Ketones NEG (NEG) MG/DL Urine Blood TRACE (NEG) Urine Nitrite NEG (NEG) Ur Leukocyte Esterase NEG (NEG) Urine RBC 0-2 (0) /HPF Urine WBC 0 (0-4) /HPF Ur Squamous Epith Cells 1+ /LPF Urine Bacteria 1+ /LPF 12/20/20 Range/Units 14:26 WBC (4.8-10.8) X10*3/uL RBC (4.20-5.50) X10*6/uL Hgb (12.0-16.0) g/dl Hct (37-47) % MCV (80-98) fL MCH (27.0-33.0) pg MCHC (31.0-35.0) g/dl RDW (11.0-16.0) % Plt Count (160-400) X10*3/uL MPV (9.4-12.3) fL Immature Gran % (Auto) (0.0-0.4) % Neut % (Auto) (45-73) % Lymph % (Auto) (20-40) % [place] % (Auto) (2-11) % Eos % (Auto) (0-4) % Baso % (Auto) (0-2) % Lymph # (Auto) (1.2-4.9) X10*3/uL [place] # (Auto) (0.1-1.2) X10*3/uL Eos # (Auto) (0.0-0.4) X10*3/uL Baso # (Auto) (0.0-0.2) X10*3/uL Abs Immat Gran (auto) (0.00-0.03) X10*3/uL Absolute Neuts (auto) (2.0-8.3) X10*3/uL Absolute Nucleated RBC (0.0-0.012) X10*3/uL Nucleated RBC % (auto) (0.0-0.2) /100WBC Hold Blue Top Sodium 136 (135-145) mmol/L Potassium 4.2 (3.3-5.1) mmol/L Chloride 102 (96-108) mmol/L Carbon Dioxide 23 (22-29) mmol/L Anion Gap 15 (12-20) BUN 9 (9-16) mg/dL Creatinine 0.72 (0.5-1.4) mg/dL Estim Creat Clear Calc 92.3 Estimated GFR > 60 Random Glucose 87 (60-115) mg/dL Calcium 9.1 (8.4-10.2) mg/dL Total Bilirubin < 0.2 (0.0-1.0) mg/dL Direct Bilirubin < 0.2 (0.0-0.5) mg/dL AST 25 D (5-31) U/L ALT 34 H (0-31) U/L Alkaline Phosphatase 82 (39-117) U/L Total Protein 7.5 (6.5-8.0) g/dL Albumin 4.1 (3.5-5.0) g/dL Lipase 11 (8-78) U/L Urine Color Urine Appearance Urine pH (5.0-8.0) Ur Specific [place] (1.005-1.025) Urine Protein (NEG-TRACE) MG/DL Urine Glucose (UA) (NEG) MG/DL Urine Ketones (NEG) MG/DL Urine Blood (NEG) Urine Nitrite (NEG) Ur Leukocyte Esterase (NEG) Urine RBC (0) /HPF Urine WBC (0-4) /HPF Ur Squamous Epith Cells /LPF Urine Bacteria /LPF Discharge Plan Discharge Clinical Impression: Gastritis and duodenitis Patient Disposition: Home, Self-Care Instructions: Gastritis (ED) Prescriptions: New ondansetron HCl [Zofran] 4 mg tablet 4 mg PO Q8H PRN (Reason: nausea and vomiting) Qty: 10 RF: 0 pantoprazole [Protonix] 40 mg tablet,delayed release (DR/EC) 40 mg PO DAILY Qty: 20 RF: 0 No Action vancomycin 250 mg capsule 250 mg PO QID 10 Days Qty: 40 RF: 0 ondansetron HCl [Zofran] 4 mg tablet 4 mg PO Q8H PRN (Reason: nausea and vomiting) Qty: 10 RF: 0 montelukast [Singulair] 10 mg tablet 10 mg PO DAILY RF: 0 cetirizine [All Day Allergy (cetirizine)] 10 mg tablet 10 mg PO DAILY RF: 0 albuterol sulfate 2.5 mg/0.5 mL solution for nebulization 5 mg inhalation QID RF: 0 omeprazole 20 mg capsule,delayed release(DR/EC) 20 mg PO DAILY RF: 0 nitrofurantoin monohyd/m-cryst [Macrobid] 100 mg capsule 100 mg PO BID 14 Days Qty: 28 RF: 0 nitrofurantoin macrocrystal [Macrodantin] 50 mg capsule 50 mg PO BEDTIME 30 Days Qty: 30 RF: 5 Referrals: Physician,Unknown [Primary Care Provider] - 5 days [facility] Past Medical History Medical History Fibromyalgia Recurrent UTI Unspecified internal derangement of unspecified knee Surgical History History of partial hysterectomy Previous section Family History Family History Father No problems noted. Mother No problems noted. Social History Social History Alcohol intake: never Advance Directives: Yes Advance Directives Information Provided: Yes Advance Directives on File: No Patient : No Current occupational status: employed Current occupation: [employer] - Right [employer]
[2020-12-20] MEDS: ondansetron HCL 4 MG/2 ML VIAL IVPUSH (15:22)
[2020-12-20] MEDS: Magnesium Hydrox/Alum Hydrox 30 ML ORAL.SUSP PO (15:23)
[2020-12-20] MEDS: Pantoprazole Sodium 40 MG/10 ML VIAL IVPUSH (15:23)
[2020-12-20] MEDS: Lidocaine HCl Viscous 2 % 15 ML SOLUTION MUCOUS MEM (15:23)
[2020-12-20] MEDS: PHENobarb/Hyoscy/Atropine/Scop 10 ML ELIXIR PO (15:24)
[2020-12-20 16:00] VITALS: BP 122/65; PULSE 84; RESP 16; TEMP 37.2; O2SAT 97
[2020-12-20 16:27] LABS: Bilirubin Direct < 0.2 mg/dL (0.0-0.5); Lipase 11 U/L (8-78)
== END 2020-12-20 17:21 | disposition home or self-care (01) ==
PROVIDERS: Emergency Provider Emergency Medicine
DX: K29.80 Duodenitis without bleeding (principal); K29.70 Gastritis, unspecified, without bleeding; R10.13 Epigastric pain; Z79.899 Other long term (current) drug therapy
CPT/HCPCS: 36415; 80053; 80076; 81001; 82248; 83690; 85025; 96365; 96375; 99284; J2405

== ENCOUNTER 2021-01-11 15:03 | Emergency (ER) | payer MEDICAID, SELFPAY ==
--- NOTE | ~2021-01-11 | CT_ITS ---
EXAMINATION: CT ABDOMEN AND PELVIS WITHOUT CONTRAST CLINICAL INFORMATION: Flank pain and hematuria. COMPARISON: Previous CT of the abdomen and pelvis most recent November 2020 and previous pelvic ultrasound April 2018 TECHNIQUE: Multidetector volumetric imaging was performed from the superior aspect of the liver through the pubic symphysis. Sagittal and coronal reformatted images were obtained on the technologist's workstation. This CT examination was performed using dose optimization techniques as appropriate, variously including the following: *Automated exposure control *Adjustment of mA and/or kV according to patient size (this includes techniques or standardized protocols for targeted exams where dose is matched to indication/reason for exam; i.e. extremities or head) *Use of iterative reconstruction technique DLP: 475 mGy-cm FINDINGS: LUNG BASES: The visualized lung bases are unremarkable. LIVER, GALLBLADDER, AND BILIARY TREE: The liver is normal in size, shape, and attenuation. No focal hepatic lesion or biliary ductal dilatation is present. The gallbladder is unremarkable with no evidence of radiopaque gallstones, gallbladder wall thickening, or obvious pericholecystic inflammatory changes. PANCREAS: Unremarkable. SPLEEN: Unremarkable. ADRENAL GLANDS: Unremarkable. KIDNEYS AND URETERS: The kidneys are normal in size, shape, and attenuation. No renal or ureteral stone is seen. There is mild right hydronephrosis and proximal ureteral dilatation. This may represent a recently passed stone. There is no perinephric fat stranding. BLADDER: Unremarkable. GASTROINTESTINAL TRACT: The small and large bowel are unremarkable. The appendix is unremarkable. ABDOMINAL WALL: There are stable postsurgical changes to the abdominal wall. No hernia is seen. LYMPH NODES: Normal. VASCULAR: Unremarkable. PELVIC VISCERA: Post supracervical hysterectomy. The cervix is prominent but similar to previous exams. No pelvic mass. OSSEOUS STRUCTURES: Unremarkable. CT/CT abdomen pelvis wo con IMPRESSION: Mild right hydronephrosis and ureteral dilatation. No stone seen. This may represent a recently passed stone.
[2021-01-11 15:17] VITALS: BP 131/75; PULSE 90; RESP 18; TEMP 36.6; O2SAT 98; BMI 26.5
[2021-01-11 15:46] LABS: Glucose Urine UA NEG (NEG); Leukocyte Esterase Urine NEG (NEG); Nitrite Urine NEG (NEG); Specific Gravity - Urine 1.025 (1.005-1.025); Urine Blood TRACE (NEG); Urine Ketones NEG (NEG); Urine Protein NEG (NEG-TRACE)
[2021-01-11 15:55] LABS: Appearance Urine HAZY; Color Urine YELLOW
[2021-01-11 16:20] LABS: Bacteria Urine 3+ /LPF; Squamous Epithelial Cell Urine 2+ /LPF
[2021-01-11 17:20] LABS: MANUAL DIFF FLAG NO
[2021-01-11 17:29] LABS: Basophils Absolute Auto 0.1 X10*3/uL (0.0-0.2); Basophils Percent Auto 0.8 % (0-2); Eosinophils Absolute Auto 0.2 X10*3/uL (0.0-0.4); Hematocrit 36.1 % (37-47); Hemoglobin 11.6 g/dl (12.0-16.0); Imm Gran Abs Auto 0.05 X10*3/uL (0.00-0.03); Imm Gran Pct Auto 0.3 % (0.0-0.4); Lymphocytes Absolute Auto 3.9 X10*3/uL (1.2-4.9); Lymphocytes Percent Auto 24.6 % (20-40); Mean Corpuscular HGB Conc 32.1 g/dl (31.0-35.0); Mean Corpuscular Hemoglobin 26.4 pg (27.0-33.0); Mean Platelet Volume 9.2 fL (9.4-12.3); Monocytes Absolute Auto 0.7 X10*3/uL (0.1-1.2); Monocytes Percent Auto 4.3 % (2-11); Neutrophils Absolute Auto 10.8 X10*3/uL (2.0-8.3); Platelet Count 470 X10*3/uL (160-400); Red Cell Distribution Width 14.9 % (11.0-16.0); White Blood Count 15.7 X10*3/uL (4.8-10.8)
[2021-01-11 17:54] LABS: Alanine Aminotransferase 15 U/L (0-31); Albumin Level 4.3 g/dL (3.5-5.0); Alkaline Phosphatase 67 U/L (39-117); Anion Gap 12 (12-20); Aspartate Amino Transferase 13 U/L (5-31); Bilirubin Total < 0.2 mg/dL (0.0-1.0); Blood Urea Nitrogen 9 mg/dL (9-16); Calcium 9.4 mg/dL (8.4-10.2); Carbon Dioxide 24 mmol/L (22-29); Chloride 105 mmol/L (96-108); Creatinine Clr Calc Pharmacy 86.3; Estimated Glomerular Filt Rate > 60; Glucose Random 105 mg/dL (60-115); Potassium 4.3 mmol/L (3.3-5.1); Sodium 137 mmol/L (135-145); Total Protein 7.6 g/dL (6.5-8.0)
--- NOTE | 2021-01-11 18:20 | ED_ITS ---
HPI - Abdominal Pain General Chief Complaint: Abdominal Pain Stated Complaint: kidney pain Time Seen by Provider: 01/11/21 18:12 Source: patient Mode of arrival: ambulatory Limitations: no limitations History of Present Illness HPI narrative: 45 yo female here with bilateral flank pain right >left x several days with urinary frequency. H/o chronic UTI's. No fevers, chills, nausea, vomiting, abdominal pain. Per patient had UA 01/08 which grew e.coli sensitive to macrobid which she has tolerated well before. Related Data Home Medications Medication Instructions Recorded Confirmed albuterol sulfate 2.5 mg/0.5 mL 5 mg INHALATION QID 05/17/20 09/08/20 solution for nebulization cetirizine 10 mg tablet 10 mg PO DAILY 05/17/20 09/08/20 montelukast 10 mg tablet 10 mg PO DAILY 05/17/20 09/08/20 omeprazole 20 mg capsule,delayed 20 mg PO DAILY 05/17/20 09/08/20 release Previous Rx's Medication Instructions Recorded nitrofurantoin macrocrystal 50 mg 50 mg PO BEDTIME 30 Days #30 cap 09/08/20 capsule nitrofurantoin 100 mg PO BID 14 Days #28 cap 09/08/20 monohydrate/macrocrystals 100 mg capsule ondansetron HCl [Zofran] 4 mg PO Q8H PRN #10 tab 12/04/20 vancomycin 250 mg PO QID 10 Days #40 cap 12/04/20 ondansetron HCl [Zofran] 4 mg PO Q8H PRN #10 tab 12/20/20 pantoprazole [Protonix] 40 mg PO DAILY #20 tab 12/20/20 acetaminophen 650 mg PO Q6H PRN #20 cap 01/11/21 nitrofurantoin monohyd/m-cryst 100 mg PO BID 7 Days #14 cap 01/11/21 [Macrobid] ondansetron 4 mg PO Q6H PRN #10 tab 01/11/21 oxycodone 5 mg PO Q8H PRN #5 tab 01/11/21 phenazopyridine [Pyridium] 200 mg PO TID PRN #6 tab 01/11/21 Allergies Allergy/AdvReac Type Severity Reaction Status Date / Time levofloxacin [From Levaquin] Allergy Intermediate INTERACTED Verified 12/20/20 13:41 W/ANTI DEPRESSANT morphine [MORPHINE] Allergy Intermediate ITCHING, Verified 12/20/20 13:41 HIVES trazodone [TRAZODONE] Allergy Mild TACHYCARDIA Verified 12/20/20 13:41 amitriptyline Allergy Unknown Unknown Verified 12/20/20 13:41 citalopram Allergy Unknown Unknown Verified 12/20/20 13:41 escitalopram Allergy Unknown Unknown Verified 12/20/20 13:41 ibuprofen Allergy Unknown Unknown Verified 12/20/20 13:41 ketorolac Allergy Unknown Unknown Verified 12/20/20 13:41 sertraline Allergy Unknown Unknown Verified 12/20/20 13:41 Sulfa (Sulfonamide Allergy Unknown Unknown Verified 12/20/20 13:41 Antibiotics) topiramate Allergy Unknown Unknown Verified 12/20/20 13:41 trimethoprim Allergy Unknown Unknown Verified 12/20/20 13:41 zolpidem Allergy Unknown Unknown Verified 12/20/20 13:41 NSAIDS (Non-Steroidal AdvReac Severe HYPEREMESIS Verified 12/20/20 13:41 Anti-Inflamma [NSAIDS (NON-STEROIDAL ANTI-INFLAMMA] From Celexa Allergy Intermediate INTERACTS Uncoded 04/13/20 16:15 W/LEVAQUIN ANTIDEPRESENT Allergy Unknown Unknown Uncoded 05/17/20 12:28 Sulfamethoxazole Allergy Unknown Unknown Uncoded 05/17/20 12:28 toradol Allergy Unknown Unknown Uncoded 05/17/20 12:28 From Ambien AdvReac Severe TACHYCARDIA Uncoded 04/13/20 16:15 From Ultram AdvReac Severe TACHYCARDIA Uncoded 04/13/20 16:15 From ZOLOFT AdvReac Severe TACHYCARDIA Uncoded 04/13/20 16:15 From TORADOL AdvReac Mild STOMACH Uncoded 04/13/20 16:15 UPSET Review of Systems Review of Systems Yes all other systems are reviewed and are negative Constitutional: Reports no additional constitutional complaints, Denies body ache(s), Denies chills, Denies fever(s), Denies headache(s) and Denies weakness Eyes: Reports no additional eye complaints and Denies change in vision Reports system reviewed and no additional complaints, except as documented, Denies dizziness, Denies headache(s), Denies nasal congestion, Denies nasal discharge and Denies neck pain Cardiovascular: Reports no additional cardiovascular complaints, Denies chest pain, Denies leg edema and Denies dyspnea Respiratory: Reports no additional respiratory complaints, Denies cough and Denies dyspnea Gastrointestinal: Reports no additional gastrointestinal complaints, Denies abdominal pain, Denies diarrhea, Denies nausea and Denies vomiting Genitourinary: Reports no additional female genitourinary complaints, Denies dysuria, Denies urinary incontinence, Denies urinary hesitancy and Denies urinary urgency Comments: +frequency Musculoskeletal: Reports no additional musculoskeletal complaints, Reports back pain, Denies arthralgias, Denies joint swelling, Denies neck pain, Denies numbness and Denies tingling Skin/Breast: Reports system reviewed and no additional complaints, except as docu and Denies rash Reports system reviewed and no additional complaints, except as documented, Denies Abnormal speech present, Denies dizziness, Denies headache(s), Denies numbness, Denies tingling and Denies weakness Physical Exam Vital Signs: Vital Signs: Last Vital Signs Temp 98 F 01/11/21 15:17 Pulse 74 01/11/21 20:25 Resp 14 01/11/21 20:25 BP 114/88 01/11/21 20:25 Pulse Ox 99 01/11/21 20:25 Body Mass Index 26.5 Const: General: cooperative, healthy appearing, comfortable and no acute distress Orientation/consciousness: patient oriented x3 Limitations: no limitations HENMT: Head: Yes normal to inspection Ears: hearing grossly normal bilaterally General nose exam: Normal external nose present Face and sinus: Yes normal facial exam Mouth: Normal oral and palatal mucosa present Throat: Yes posterior oropharynx normal Eyes: General: appearance normal, both eyes and all related structures Pupils: Equal, round and reactive pupils present Neck: Neck: Yes normal visual inspection Chest: Chest palpation & inspection: normal inspection of the chest Resp: Effort & Inspection: normal respiratory effort Auscultation: clear to auscultation bilaterally Cardio: Rate: regular rate Rhythm: regular rhythm Peripheral pulses: Peripheral pulses 2+ throughout GI: Inspection: Yes normal to inspection Palpation (GI): Soft to palpation and nontender Auscultation: normal bowel sounds : General: Yes CVA tenderness (right mild, left normal) Back/Spine/Pelvis: Back: CVA tenderness (right mild, left normal) Thoracic/Lumbar Spine: thoracic and lumbar spine normal to inspection Skin: General skin exam: no rashes or lesions noted Neuro: General: patient oriented x3, no focal motor deficits and normal sensation to monofilament Cranial nerves: Yes Equal, round and reactive pupils present Cognition (Neuro): normal cognition Speech: No Abnormal speech present Gait exam (Neuro): Normal gait present Motor exam (neuro): 5/5 motor strength present throughout Extrem: General: Yes normal to inspection, Yes no pedal edema and Yes no calf tenderness Course Course Course Narrative: 45 yo female with a reported h/o chronic UTI's here with complaints of flank pain and urinary frequency x several days with an outpatient urine culture growing e.coli sensitive to macrobid. Not currently on antibiotics. Patient has urine culture report on her phone although not available in [email or web address] system. Unclear why ordering provider is not treating patient. D/t CVAT will check labs, CT A/P. 2014-Ct shows mild right hydronephrosis and ureteral dilation with no evidence of renal colic. ?passed recently. Labs shows mild leukocytosis which is likely reactive as patient vomited several times today reportedly. Normal renal function. No fever, tachycardia or any other s/s of systemic infection. We discussed her UA here is not c/w with a UTI however in the setting of recent +culture and h/o recurrent UTI's with current urinary symptoms consider initiating antibiotics. We discussed risks/benefits and shared decision making to initiate antibiotics. Patient had an episode of vomiting after PO oxycodone. Will give IM analgesia, SL zofran. PO trial with plan for discharge home. 2044-Patient feel improved. Tolerating sips. Reviewed worrisome signs/symptoms with patient and when to return to ED. Comfortable with discharge home. MDM - Abdominal Pain Medical Records Attestation: I reviewed the patient's medical records. Lab Data Attestation: I reviewed the patient's lab results. Result diagrams: 01/11/21 17:16 01/11/21 17:16 Labs: Lab Results 01/11/21 01/11/21 01/11/21 Range/Units 15:30 15:30 17:16 WBC 15.7 H (4.8-10.8) X10*3/uL RBC 4.40 (4.20-5.50) X10*6/uL Hgb 11.6 L (12.0-16.0) g/dl Hct 36.1 L (37-47) % MCV 82.0 (80-98) fL MCH 26.4 L (27.0-33.0) pg MCHC 32.1 (31.0-35.0) g/dl RDW 14.9 (11.0-16.0) % Plt Count 470 H (160-400) X10*3/uL MPV 9.2 L (9.4-12.3) fL Immature Gran % (Auto) 0.3 (0.0-0.4) % Neut % (Auto) 69.0 (45-73) % Lymph % (Auto) 24.6 (20-40) % [place] % (Auto) 4.3 (2-11) % Eos % (Auto) 1.0 (0-4) % Baso % (Auto) 0.8 (0-2) % Lymph # (Auto) 3.9 (1.2-4.9) X10*3/uL [place] # (Auto) 0.7 (0.1-1.2) X10*3/uL Eos # (Auto) 0.2 (0.0-0.4) X10*3/uL Baso # (Auto) 0.1 (0.0-0.2) X10*3/uL Abs Immat Gran (auto) 0.05 H (0.00-0.03) X10*3/uL Absolute Neuts (auto) 10.8 H (2.0-8.3) X10*3/uL Absolute Nucleated RBC 0.000 (0.0-0.012) X10*3/uL Nucleated RBC % (auto) 0.0 (0.0-0.2) /100WBC Sodium (135-145) mmol/L Potassium (3.3-5.1) mmol/L Chloride (96-108) mmol/L Carbon Dioxide (22-29) mmol/L Anion Gap (12-20) BUN (9-16) mg/dL Creatinine (0.5-1.4) mg/dL Estim Creat Clear Calc Estimated GFR Random Glucose (60-115) mg/dL Calcium (8.4-10.2) mg/dL Total Bilirubin (0.0-1.0) mg/dL AST (5-31) U/L ALT (0-31) U/L Alkaline Phosphatase (39-117) U/L Total Protein (6.5-8.0) g/dL Albumin (3.5-5.0) g/dL Urine Color YELLOW Urine Appearance HAZY Urine pH 6.0 (5.0-8.0) Ur Specific [place] 1.025 (1.005-1.025) Urine Protein NEG (NEG-TRACE) MG/DL Urine Glucose (UA) NEG (NEG) MG/DL Urine Ketones NEG (NEG) MG/DL Urine Blood TRACE (NEG) Urine Nitrite NEG (NEG) Ur Leukocyte Esterase NEG (NEG) Urine RBC 5-9 H (0) /HPF Urine WBC 1-4 (0-4) /HPF Ur Squamous Epith Cells 2+ /LPF Urine Bacteria 3+ /LPF Urine Test Cancelled 01/11/21 Range/Units 17:16 WBC (4.8-10.8) X10*3/uL RBC (4.20-5.50) X10*6/uL Hgb (12.0-16.0) g/dl Hct (37-47) % MCV (80-98) fL MCH (27.0-33.0) pg MCHC (31.0-35.0) g/dl RDW (11.0-16.0) % Plt Count (160-400) X10*3/uL MPV (9.4-12.3) fL Immature Gran % (Auto) (0.0-0.4) % Neut % (Auto) (45-73) % Lymph % (Auto) (20-40) % [place] % (Auto) (2-11) % Eos % (Auto) (0-4) % Baso % (Auto) (0-2) % Lymph # (Auto) (1.2-4.9) X10*3/uL [place] # (Auto) (0.1-1.2) X10*3/uL Eos # (Auto) (0.0-0.4) X10*3/uL Baso # (Auto) (0.0-0.2) X10*3/uL Abs Immat Gran (auto) (0.00-0.03) X10*3/uL Absolute Neuts (auto) (2.0-8.3) X10*3/uL Absolute Nucleated RBC (0.0-0.012) X10*3/uL Nucleated RBC % (auto) (0.0-0.2) /100WBC Sodium 137 (135-145) mmol/L Potassium 4.3 (3.3-5.1) mmol/L Chloride 105 (96-108) mmol/L Carbon Dioxide 24 (22-29) mmol/L Anion Gap 12 (12-20) BUN 9 (9-16) mg/dL Creatinine 0.77 (0.5-1.4) mg/dL Estim Creat Clear Calc 86.3 Estimated GFR > 60 Random Glucose 105 (60-115) mg/dL Calcium 9.4 (8.4-10.2) mg/dL Total Bilirubin < 0.2 (0.0-1.0) mg/dL AST 13 D (5-31) U/L ALT 15 (0-31) U/L Alkaline Phosphatase 67 (39-117) U/L Total Protein 7.6 (6.5-8.0) g/dL Albumin 4.3 (3.5-5.0) g/dL Urine Color Urine Appearance Urine pH (5.0-8.0) Ur Specific [place] (1.005-1.025) Urine Protein (NEG-TRACE) MG/DL Urine Glucose (UA) (NEG) MG/DL Urine Ketones (NEG) MG/DL Urine Blood (NEG) Urine Nitrite (NEG) Ur Leukocyte Esterase (NEG) Urine RBC (0) /HPF Urine WBC (0-4) /HPF Ur Squamous Epith Cells /LPF Urine Bacteria /LPF Urine Test Imaging Data CT scan - abdomen: Attestation: I personally reviewed and interpreted this imaging study as follows: Radiologist's impression: IMPRESSION: Mild right hydronephrosis and ureteral dilatation. No stone seen. This may represent a recently passed stone. Discharge Plan Discharge Clinical Impression: UTI (urinary tract infection) Patient Disposition: Home, Self-Care Instructions: Urinary Tract Infection in Women (ED) Additional Instructions: Your urine today shows microscopic hematuria but no signs of infection. Due to your history of recurrent urinary tract infections we will send a urine culture. We have reviewed the urine culture that you had on your phone from 01/08 which was sensitive to macrobid therefore we are treating you with a course of this. Your kidney function was normal. Your CT scan shows that you likely passed a kidney stone recently. There is no evidence that you currently have a kidney stone or kidney infection. Increase fluids, rest Follow-up with your doctors who manage your urinary tract infections. Prescriptions: New ondansetron 4 mg tablet,disintegrating 4 mg PO Q6H PRN (Reason: nausea and vomiting) Qty: 10 RF: 0 nitrofurantoin monohyd/m-cryst [Macrobid] 100 mg capsule 100 mg PO BID 7 Days Qty: 14 RF: 0 phenazopyridine [Pyridium] 200 mg tablet 200 mg PO TID PRN (Reason: pain) Qty: 6 RF: 0 acetaminophen 325 mg capsule 650 mg PO Q6H PRN (Reason: pain) Qty: 20 RF: 0 oxycodone 5 mg tablet 5 mg PO Q8H PRN (Reason: pain) Qty: 5 RF: 0 No Action vancomycin 250 mg capsule 250 mg PO QID 10 Days Qty: 40 RF: 0 ondansetron HCl [Zofran] 4 mg tablet 4 mg PO Q8H PRN (Reason: nausea and vomiting) Qty: 10 RF: 0 ondansetron HCl [Zofran] 4 mg tablet 4 mg PO Q8H PRN (Reason: nausea and vomiting) Qty: 10 RF: 0 pantoprazole [Protonix] 40 mg tablet,delayed release (DR/EC) 40 mg PO DAILY Qty: 20 RF: 0 montelukast [Singulair] 10 mg tablet 10 mg PO DAILY RF: 0 cetirizine [All Day Allergy (cetirizine)] 10 mg tablet 10 mg PO DAILY RF: 0 albuterol sulfate 2.5 mg/0.5 mL solution for nebulization 5 mg inhalation QID RF: 0 omeprazole 20 mg capsule,delayed release(DR/EC) 20 mg PO DAILY RF: 0 nitrofurantoin monohyd/m-cryst [Macrobid] 100 mg capsule 100 mg PO BID 14 Days Qty: 28 RF: 0 nitrofurantoin macrocrystal [Macrodantin] 50 mg capsule 50 mg PO BEDTIME 30 Days Qty: 30 RF: 5 Referrals: Nba Andrea MD [Physician] - 2 days Stand Alone Forms: Work/School Release Interventions: ED Discharge Assessment Last Done: 01/11/21 21:02 Discharge Date/Time: 01/11/21 21:02 PMFSH Past Medical History Attestation statement: The following information was validated with the patient. Source: old records reviewed and nursing notes reviewed Medical History Fibromyalgia Recurrent UTI Unspecified internal derangement of unspecified knee Surgical History History of partial hysterectomy Previous section Family History Family History Father No problems noted. Mother No problems noted. 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
[2021-01-11] MEDS: oxyCODONE HCl Immed Release 5 MG TABLET PO (18:30)
[2021-01-11] MEDS: Nitrofurantoin Monohyd/M-Cryst 100 MG CAPSULE PO (18:35)
--- NOTE | 2021-01-11 19:42 | PC.NURSE ---
Patient requesting additional pain and nausea medication. Karlo romero.
[2021-01-11] MEDS: HYDROmorphone HCl 0.5 MG/0.5 ML SYRINGE IM (20:22)
[2021-01-11 20:25] VITALS: BP 114/88; PULSE 74; RESP 14; O2SAT 99
== END 2021-01-11 21:02 | disposition home or self-care (01) ==
PROVIDERS: Emergency Provider Emergency Medicine Emergency Medical Services; PCP Internal Medicine
DX: N39.0 Urinary tract infection, site not specified (principal); Z87.440 Personal history of urinary (tract) infections
CPT/HCPCS: 36415; 74176; 80053; 81001; 85025; 96372; 99283; 99284; J1170

== ENCOUNTER 2021-02-09 09:56 | Outpatient (REF) | payer MEDICAID, SELFPAY ==
--- NOTE | ~2021-02-09 | XR_ITS ---
EXAMINATION: XR SHOULDER, LEFT CLINICAL INFORMATION: Recurrent dislocation, effusion. Pain COMPARISON: None TECHNIQUE: 3 views of the left shoulder. FINDINGS: The bones and soft tissues are normal. No fracture. Glenohumeral and acromioclavicular alignment is anatomic with normal joint space. No abnormal soft tissue calcifications. XR/XR shoulder LT min 2V IMPRESSION: Unremarkable left shoulder.
== END 2021-02-09 09:57 | disposition home or self-care (01) ==
LOC: HO.XRAY 09:56
PROVIDERS: PCP Internal Medicine; Referring Provider Internal Medicine; Visit Provider Internal Medicine Geriatric Medicine
DX: M24.412 Recurrent dislocation, left shoulder (principal); M25.412 Effusion, left shoulder; M25.512 Pain in left shoulder
CPT/HCPCS: 73030

== ENCOUNTER 2021-02-19 10:46 | Outpatient (REF) | payer MEDICAID, SELFPAY ==
[2021-02-19 11:59] LABS: CDiff Gene PCR NEGATIVE (Negative)
== END 2021-02-19 10:47 | disposition home or self-care (01) ==
LOC: HO.LNP 10:46
PROVIDERS: Visit Provider Internal Medicine
DX: R19.7 Diarrhea, unspecified (principal)
CPT/HCPCS: 87493

== ENCOUNTER → 2021-02-26 14:09 | Outpatient (BNVA) | payer MEDICAID, SELFPAY | PROVIDERS: PCP Internal Medicine; Visit Provider Physician Assistant | DX: M25.512 Pain in left shoulder (principal); S46.092A Other injury of muscle(s) and tendon(s) of the rotator cuff of left shoulder, initial encounter; Y04.8XXA Assault by other bodily force, initial encounter; Y93.9 Activity, unspecified; Y92.9 Unspecified place or not applicable; Y99.8 Other external cause status; M79.7 Fibromyalgia; Z88.5 Allergy status to narcotic agent; Z88.2 Allergy status to sulfonamides; Z88.8 Allergy status to other drugs, medicaments and biological substances | CPT/HCPCS: 99202 ==

== ENCOUNTER 2021-04-19 11:04 | Emergency (ER) | payer MEDICAID, SELFPAY ==
--- NOTE | ~2021-04-19 | CT_ITS ---
EXAMINATION: CT ABDOMEN AND PELVIS WITHOUT CONTRAST CLINICAL INFORMATION: Right flank pain. COMPARISON: CT abdomen/pelvis dated from 01/11/2021, 12/04/2020, 11/02/2016. TECHNIQUE: Multidetector volumetric imaging was performed from the superior aspect of the liver through the pubic symphysis. Sagittal and coronal reformatted images were obtained on the technologist's workstation. This CT examination was performed using dose optimization techniques as appropriate, variously including the following: *Automated exposure control *Adjustment of mA and/or kV according to patient size (this includes techniques or standardized protocols for targeted exams where dose is matched to indication/reason for exam; i.e. extremities or head) *Use of iterative reconstruction technique DLP: 517 mGy-cm FINDINGS: LUNG BASES: A few subcentimeter calcified and noncalcified pulmonary nodules are stable since 2016. There are dependent atelectases without focal consolidation or pleural effusion. LIVER, GALLBLADDER, AND BILIARY TREE: There is decreased hepatic parenchymal attenuation, most consistent with hepatic steatosis. There is focal fatty sparing in the region of the gallbladder fossa. Otherwise, the liver is unremarkable. There is no biliary ductal dilatation. The gallbladder is unremarkable. PANCREAS: No focal lesions. The main pancreatic duct is nondilated. There is no significant peripancreatic free fluid or stranding. SPLEEN: Unremarkable. ADRENAL GLANDS: Unremarkable. KIDNEYS AND URETERS: There is mild right hydroureteronephrosis which is similar to minimally decreased since December 2020. There is no evidence of obstructing stones. There are no focal parenchymal abnormalities, nor significant perinephric fat stranding. BLADDER: There is mild diffuse urinary bladder wall thickening, increased since December 2020. No focal abnormalities. GASTROINTESTINAL TRACT: The stomach and the small bowel are nondilated. The appendix is unremarkable. The descending colon, sigmoid colon and rectum are suboptimally distended and therefore limitedly assessed. There is no evidence of wall thickening or inflammatory changes within the remaining of the well-distended colon. There is no bowel obstruction. ABDOMINAL WALL: Midline surgical scarring with more irregular scarring in the mid abdominal wall at the level of L5 (52:3) and more inferiorly in the mid pelvis (63:3) unchanged since November 2020. No significant hernia. LYMPH NODES: No abdominopelvic lymphadenopathy by size criteria. A few prominent mesenteric lymph nodes in the right lower quadrant (43, 5) are stable. There are also stable prominent bilateral inguinal lymph nodes, which are likely reactive. VASCULAR: Unremarkable. PELVIC VISCERA: The patient is status post supracervical hysterectomy with similar enlargement and fullness of the cervix. Mild pericervical fat stranding is also not significantly changed. There is however, increased amount of air in the lumen of the vagina of uncertain significance. OSSEOUS STRUCTURES: No acute osseous abnormalities. CT/CT abdomen pelvis wo con IMPRESSION: Mild prominence of the right renal pelvis and right ureter is similar to minimally decreased since December 2020. There is no evidence of obstructive stone. There is redemonstration of similar postoperative changes in the cervix with stable engorgement of the cervix and surrounding inflammatory changes. Correlation with physical examination could be obtained to rule out infection. The distal colon and rectum are decompressed and difficult to evaluate for any wall thickening. However, there is no evidence of pericolic inflammatory changes. There is no bowel obstruction. Hepatic steatosis.
--- NOTE | ~2021-04-19 | US_ITS ---
EXAMINATION: US RETROPERITONEAL LIMITED (RENAL ONLY) CLINICAL INFORMATION: Right flank pain. History of calculi. COMPARISON: CT abdomen/pelvis dated from 01/11/2021. TECHNIQUE: Real-time imaging of the kidneys. FINDINGS: RIGHT KIDNEY: 12.1 x 3.7 x 4.7 cm (SAG x AP x TRV). The kidney is normal in size, contour, and echogenicity. Renal cortical thickness is normal. No calculi or focal parenchymal lesions. No hydronephrosis. LEFT KIDNEY: 12.3 x 5.2 x 3.8 cm (SAG x AP x TRV). The kidney is normal in size, contour, and echogenicity. Renal cortical thickness is normal. No calculi or focal parenchymal lesions. No hydronephrosis. US/US renal BI IMPRESSION: No acute sonographic abnormalities.
[2021-04-19 12:07] VITALS: BP 118/86; PULSE 87; RESP 18; TEMP 36.7; O2SAT 100; BMI 26.5
[2021-04-19] MEDS: Ondansetron ODT 4 MG TAB.RAPDIS TRANSLINGU (12:11)
[2021-04-19 12:41] LABS: MANUAL DIFF FLAG NO
[2021-04-19 12:45] LABS: Basophils Absolute Auto 0.1 X10*3/uL (0.0-0.2); Basophils Percent Auto 0.5 % (0-2); Eosinophils Absolute Auto 0.2 X10*3/uL (0.0-0.4); Hematocrit 38.9 % (37-47); Hemoglobin 12.4 g/dl (12.0-16.0); Imm Gran Abs Auto 0.08 X10*3/uL (0.00-0.03); Imm Gran Pct Auto 0.4 % (0.0-0.4); Lymphocytes Absolute Auto 2.7 X10*3/uL (1.2-4.9); Lymphocytes Percent Auto 14.1 % (20-40); Mean Corpuscular HGB Conc 31.9 g/dl (31.0-35.0); Mean Corpuscular Volume 84.6 fL (80-98); Mean Platelet Volume 9.6 fL (9.4-12.3); Monocytes Percent Auto 5.5 % (2-11); Neutrophils Absolute Auto 14.8 X10*3/uL (2.0-8.3); Neutrophils Percent Auto 78.5 % (45-73); Platelet Count 453 X10*3/uL (160-400); Red Cell Distribution Width 15.2 % (11.0-16.0); White Blood Count 18.8 X10*3/uL (4.8-10.8)
[2021-04-19 13:07] LABS: Alanine Aminotransferase 31 U/L (0-31); Albumin Level 4.3 g/dL (3.5-5.0); Alkaline Phosphatase 83 U/L (39-117); Anion Gap 14 (12-20); Aspartate Amino Transferase 27 U/L (5-31); Bilirubin Total 0.3 mg/dL (0.0-1.0); Blood Urea Nitrogen 6 mg/dL (9-16); Calcium 9.3 mg/dL (8.4-10.2); Carbon Dioxide 25 mmol/L (22-29); Chloride 107 mmol/L (96-108); Creatinine Clr Calc Pharmacy 88.6; Estimated Glomerular Filt Rate > 60; Glucose Random 103 mg/dL (60-115); Potassium 4.6 mmol/L (3.3-5.1); Sodium 141 mmol/L (135-145); Total Protein 7.5 g/dL (6.5-8.0)
--- NOTE | 2021-04-19 13:13 | ED.FEMALEGU ---
HPI - Female Genitourinary General Chief complaint: Urogenital-Female Stated complaint: Kidney pain Time Seen by Provider: 04/19/21 13:13 Source: patient Mode of arrival: ambulatory Limitations: no limitations History of Present Illness HPI Narrative: 45-year-old female with past medical history of UTI, history of kidney stones is here today for complaining of pelvic pain, burning with urination and right flank pain. Patient had similar symptoms back in December and was seen in the ED for same and was sent home with Macrodantin. At that time patient had CT scan that showed mild nonobstructing right hydronephrosis and ureteral dilation with no evidence of renal colic ? Kidney stone recently passed possibility of. Labs at that time showed mild leukocytosis. Patient has seen by Nephrology, Urology and infection disease the past. Infection disease specialist back in August recommended treatment for UTI with 50 mg of Macrobid nightly for UT 5 prophylaxis. Patient vomited few times today. Zofran given in triage. Patient denies abdominal pain, diarrhea, denies dyspepsia, dysphagia or odynophagia. MD elicited complaint: pelvic pain and flank pain (Right) Onset (ago): hour(s) Location of symptoms: suprapubic and flank (Right flank) Severity scale (1-10): 8 Quality of pain: sharp Consistency: intermittent Vaginal discharge: none Vaginal bleeding: none Urinary symptoms: Frequency Related Data Home Medications Medication Instructions Recorded Confirmed albuterol sulfate 2.5 mg/0.5 mL 5 mg INHALATION QID 05/17/20 09/08/20 solution for nebulization cetirizine 10 mg tablet (All Day 10 mg PO DAILY 05/17/20 09/08/20 Allergy (cetirizine)) montelukast 10 mg tablet 10 mg PO DAILY 05/17/20 09/08/20 (Singulair) omeprazole 20 mg capsule,delayed 20 mg PO DAILY 05/17/20 09/08/20 release Previous Rx's Medication Instructions Recorded nitrofurantoin macrocrystal 50 mg 50 mg PO BEDTIME 30 Days #30 cap 09/08/20 capsule (Macrodantin) nitrofurantoin 100 mg PO BID 14 Days #28 cap 09/08/20 monohydrate/macrocrystals 100 mg capsule (Macrobid) ondansetron HCl 4 mg tablet 4 mg PO Q8H PRN #10 tab 12/04/20 (Zofran) vancomycin 250 mg capsule 250 mg PO QID 10 Days #40 cap 12/04/20 ondansetron HCl 4 mg tablet 4 mg PO Q8H PRN #10 tab 12/20/20 (Zofran) pantoprazole 40 mg tablet,delayed 40 mg PO DAILY #20 tab 12/20/20 release (Protonix) acetaminophen 325 mg capsule 650 mg PO Q6H PRN #20 cap 01/11/21 nitrofurantoin 100 mg PO BID 7 Days #14 cap 01/11/21 monohydrate/macrocrystals 100 mg capsule (Macrobid) ondansetron 4 mg disintegrating 4 mg PO Q6H PRN #10 tab 01/11/21 tablet oxycodone 5 mg tablet 5 mg PO Q8H PRN #5 tab 01/11/21 phenazopyridine 200 mg tablet 200 mg PO TID PRN #6 tab 01/11/21 (Pyridium) cefdinir 300 mg capsule 300 mg PO BID #14 cap 04/19/21 ondansetron 4 mg disintegrating 4 mg PO Q8H #7 tab 04/19/21 tablet oxycodone 5 mg tablet 5 mg PO Q4-6H PRN #5 tab 04/19/21 phenazopyridine 200 mg tablet 200 mg PO TID #6 tab 04/19/21 (Pyridium) Allergies Allergy/AdvReac Type Severity Reaction Status Date / Time levofloxacin [From Levaquin] Allergy Intermediate INTERACTED Verified 04/19/21 12:07 W/ANTI DEPRESSANT morphine [MORPHINE] Allergy Intermediate ITCHING, Verified 04/19/21 12:07 HIVES trazodone [TRAZODONE] Allergy Mild TACHYCARDIA Verified 04/19/21 12:07 amitriptyline Allergy Unknown Unknown Verified 04/19/21 12:07 citalopram Allergy Unknown Unknown Verified 04/19/21 12:07 escitalopram Allergy Unknown Unknown Verified 04/19/21 12:07 ibuprofen Allergy Unknown Unknown Verified 04/19/21 12:07 ketorolac Allergy Unknown Unknown Verified 04/19/21 12:07 sertraline Allergy Unknown Unknown Verified 04/19/21 12:07 Sulfa (Sulfonamide Allergy Unknown Unknown Verified 04/19/21 12:07 Antibiotics) topiramate Allergy Unknown Unknown Verified 04/19/21 12:07 trimethoprim Allergy Unknown Unknown Verified 04/19/21 12:07 zolpidem Allergy Unknown Unknown Verified 04/19/21 12:07 NSAIDS (Non-Steroidal AdvReac Severe HYPEREMESIS Verified 04/19/21 12:07 Anti-Inflamma [NSAIDS (NON-STEROIDAL ANTI-INFLAMMA] From Celexa Allergy Intermediate INTERACTS Uncoded 04/13/20 16:15 W/LEVAQUIN ANTIDEPRESENT Allergy Unknown Unknown Uncoded 05/17/20 12:28 Sulfamethoxazole Allergy Unknown Unknown Uncoded 05/17/20 12:28 toradol Allergy Unknown Unknown Uncoded 05/17/20 12:28 From Ambien AdvReac Severe TACHYCARDIA Uncoded 04/13/20 16:15 From Ultram AdvReac Severe TACHYCARDIA Uncoded 04/13/20 16:15 From ZOLOFT AdvReac Severe TACHYCARDIA Uncoded 04/13/20 16:15 From TORADOL AdvReac Mild STOMACH Uncoded 04/13/20 16:15 UPSET Review of Systems Review of Systems: Constitutional : No Weight loss, No Fever, No Chills, No Night Sweats, No Fatigue, No Malaise ENT/Mouth : No Hearing loss, No Ear Pain, No Nasal Congestion, No Sinus Pain, No Hoarseness, No sore throat, No Rhinorrhea, No Swallowing Difficulty Eyes: No Eye Pain, No Swelling, No Redness, No Foreign Body, No Discharge, No Vision Changes Cardiovascular : No Chest Pain, No SOB, No Dyspnea on Exertion, No Orthopnea, No Edema, No Palpitations Respiratory : No Cough, No Sputum, No Wheezing, No Smoke Exposure, No Dyspnea Gastrointestinal : No Nausea, No Vomiting, No Diarrhea, No Constipation, No abdominal Pain, No Hematochezia, No Melena Genitourinary : no irregular bleeding, No Dysuria, No Urinary Frequency, No Hematuria, No Urinary Incontinence, No Urgency, No Flank Pain, No Urinary Flow Changes, No Hesitancy Musculoskeletal : No joint pain, No Myalgias, No Joint Swelling Skin : No Skin Lesions, No rash Neuro : No Weakness, No Numbness, No Paresthesias, No Loss of Consciousness, No Dizziness, No Headache Yes all other systems are reviewed and are negative PMFSH Past Medical History Medical History (Updated 04/19/21 @ 17:45 by Padmaja Garibay PEAT SHREDDER TENDER-) Asthma Fibromyalgia Migraines Recurrent UTI Unspecified internal derangement of unspecified knee Surgical History History of partial hysterectomy Previous section Family History Family History Father No problems noted. Mother No problems noted. 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 Physical Exam Vital Signs: Vital Signs: Last Vital Signs Temp 98.0 F 04/19/21 12:07 Pulse 88 04/19/21 14:15 Resp 17 04/19/21 14:45 BP 126/52 L 04/19/21 14:15 Pulse Ox 100 04/19/21 14:15 Body Mass Index 26.5 Const: General: cooperative, healthy appearing, well developed and in distress; No diaphoretic Nutritional Appearance: well nourished Orientation/consciousness: patient oriented x3 HENMT: Head: Yes normal to inspection, Yes normocephalic and Yes atraumatic Neck: Neck: Yes normal visual inspection, Yes full ROM and Yes trachea midline Thyroid: Thyroid normal Resp: Auscultation: clear to auscultation bilaterally Cardio: Rate: regular rate Rhythm: regular rhythm Heart sounds: S1 normal heart sound present and S2 normal heart sound present GI: Inspection: Yes normal to inspection and No distended Palpation (GI): Soft to palpation, nontender, no guarding and No hepatosplenomegaly present Auscultation: normal bowel sounds : General: Yes CVA tenderness on the right Back/Spine/Pelvis: Back: CVA tenderness Skin: General skin exam: elasticity normal, turgor normal and dry skin Neuro: General: patient oriented x3 Extrem: General: Yes normal to inspection, Yes full ROM and Yes capillary refill normal Psych: Appearance: grossly normal and well kempt Mental Status: mental status grossly normal Speech and movement: Normal speech and movement present Affect: normal affect Course Course Course Narrative: 45-year-old female with past medical history of frequent UTIs, history of kidney stone passing. Mild hydronephrosis back in December. Presenting today with similar symptoms however the pain is localized to right flank. She also reports that she does have a pelvic pain and burning when passing urine. Vomited in [facility] she was given Zofran. Leukocytosis questioning patient has been vomiting in the last couple days. Chronic UTIs. Seen by infection control and suggested to start Macrodantin prophylactically after 14 day treatment with higher dose of Macrodantin. IV fluids, renal ultrasound. Reevaluation(s) Reevaluation #1: Ultrasound is negative for hydronephrosis, ureters are not visible on the ultrasound. Patient is feeling nauseous continues with pain will medicate her with so friend and Dilaudid. Will order abdominal CT to rule out obstruction. Time: 14:20 Reevaluation #2: Patient returned from CT scan, vomiting. Will medicate her with another dose of Zofran. Time: 16:15 Reevaluation #3: CT back shows improvedhydronephrosis from December 2020, mild inflammation and thickening of bladder with no focal abnormalities. Will send patient home so she can call Urology tomorrow morning. I will send her home on antibiotics and Pyridium. Patient was encouraged to increase fluids intake. She was encouraged to return if her symptoms will get worse or if she will develop any additional concerning symptoms. MDM - Female Genitourinary Lab Data Result diagrams: 04/19/21 12:24 04/19/21 12:24 Labs: Lab Results 04/19/21 04/19/21 04/19/21 Range/Units 12:24 12:24 13:09 WBC 18.8 H (4.8-10.8) X10*3/uL RBC 4.60 (4.20-5.50) X10*6/uL Hgb 12.4 (12.0-16.0) g/dl Hct 38.9 (37-47) % MCV 84.6 (80-98) fL MCH 27.0 (27.0-33.0) pg MCHC 31.9 (31.0-35.0) g/dl RDW 15.2 (11.0-16.0) % Plt Count 453 H (160-400) X10*3/uL MPV 9.6 (9.4-12.3) fL Immature Gran % (Auto) 0.4 (0.0-0.4) % Neut % (Auto) 78.5 H (45-73) % Lymph % (Auto) 14.1 L (20-40) % [place] % (Auto) 5.5 (2-11) % Eos % (Auto) 1.0 (0-4) % Baso % (Auto) 0.5 (0-2) % Lymph # (Auto) 2.7 (1.2-4.9) X10*3/uL [place] # (Auto) 1.0 (0.1-1.2) X10*3/uL Eos # (Auto) 0.2 (0.0-0.4) X10*3/uL Baso # (Auto) 0.1 (0.0-0.2) X10*3/uL Abs Immat Gran (auto) 0.08 H (0.00-0.03) X10*3/uL Absolute Neuts (auto) 14.8 H (2.0-8.3) X10*3/uL Absolute Nucleated RBC 0.000 (0.0-0.012) X10*3/uL Nucleated RBC % (auto) 0.0 (0.0-0.2) /100WBC Sodium 141 (135-145) mmol/L Potassium 4.6 (3.3-5.1) mmol/L Chloride 107 (96-108) mmol/L Carbon Dioxide 25 (22-29) mmol/L Anion Gap 14 (12-20) BUN 6 L (9-16) mg/dL Creatinine 0.75 (0.5-1.4) mg/dL Estim Creat Clear Calc 88.6 Estimated GFR > 60 Random Glucose 103 (60-115) mg/dL Calcium 9.3 (8.4-10.2) mg/dL Total Bilirubin 0.3 (0.0-1.0) mg/dL AST 27 D (5-31) U/L ALT 31 (0-31) U/L Alkaline Phosphatase 83 D (39-117) U/L Total Protein 7.5 (6.5-8.0) g/dL Albumin 4.3 (3.5-5.0) g/dL Urine Color YELLOW Urine Appearance CLOUDY Urine pH 6.0 (5.0-8.0) Ur Specific [place] 1.020 (1.005-1.025) Urine Protein TRACE (NEG-TRACE) MG/DL Urine Glucose (UA) NEG (NEG) MG/DL Urine Ketones NEG (NEG) MG/DL Urine Blood 1+ H (NEG) Urine Nitrite NEG (NEG) Ur Leukocyte Esterase 2+ H (NEG) Urine RBC 5-9 H (0) /HPF Urine WBC TNTC H (0-4) /HPF Ur Squamous Epith Cells 2+ /LPF Urine Bacteria 1+ /LPF Discharge Plan Discharge Clinical Impression: Recurrent UTI Patient Disposition: Home, Self-Care Instructions: Urinary Tract Infection in Women (ED) Additional Instructions: For recurrent symptoms of right flank pain and pain with urination and burning. U urine is positive for blood and some bacteria. Ultrasound of the kidney showed no hydronephrosis. CT scan of abdomen show no changes from December 2020. Please follow up with urologist tomorrow. He will be sent home on antibiotic so make sure to finish should all of it. Please take probiotic to prevent C diff. please follow-up with your primary care provided in 2-3 days, you may return to emergency department if your symptoms will get worse or if you will experience any additional concerning symptoms Prescriptions: New phenazopyridine [Pyridium] 200 mg tablet 200 mg PO TID Qty: 6 RF: 0 cefdinir 300 mg capsule 300 mg PO BID Qty: 14 RF: 0 ondansetron 4 mg tablet,disintegrating 4 mg PO Q8H Qty: 7 RF: 0 oxycodone 5 mg tablet 5 mg PO Q4-6H PRN (Reason: pain) Qty: 5 RF: 0 No Action vancomycin 250 mg capsule 250 mg PO QID 10 Days Qty: 40 RF: 0 ondansetron HCl [Zofran] 4 mg tablet 4 mg PO Q8H PRN (Reason: nausea and vomiting) Qty: 10 RF: 0 ondansetron HCl [Zofran] 4 mg tablet 4 mg PO Q8H PRN (Reason: nausea and vomiting) Qty: 10 RF: 0 pantoprazole [Protonix] 40 mg tablet,delayed release (DR/EC) 40 mg PO DAILY Qty: 20 RF: 0 ondansetron 4 mg tablet,disintegrating 4 mg PO Q6H PRN (Reason: nausea and vomiting) Qty: 10 RF: 0 nitrofurantoin monohyd/m-cryst [Macrobid] 100 mg capsule 100 mg PO BID 7 Days Qty: 14 RF: 0 phenazopyridine [Pyridium] 200 mg tablet 200 mg PO TID PRN (Reason: pain) Qty: 6 RF: 0 acetaminophen 325 mg capsule 650 mg PO Q6H PRN (Reason: pain) Qty: 20 RF: 0 oxycodone 5 mg tablet 5 mg PO Q8H PRN (Reason: pain) Qty: 5 RF: 0 montelukast [Singulair] 10 mg tablet 10 mg PO DAILY RF: 0 cetirizine [All Day Allergy (cetirizine)] 10 mg tablet 10 mg PO DAILY RF: 0 albuterol sulfate 2.5 mg/0.5 mL solution for nebulization 5 mg inhalation QID RF: 0 omeprazole 20 mg capsule,delayed release(DR/EC) 20 mg PO DAILY RF: 0 nitrofurantoin monohyd/m-cryst [Macrobid] 100 mg capsule 100 mg PO BID 14 Days Qty: 28 RF: 0 nitrofurantoin macrocrystal [Macrodantin] 50 mg capsule 50 mg PO BEDTIME 30 Days Qty: 30 RF: 5 Referrals: Nba Andrea MD [Physician] - 2 days Adal Alves MD [Primary Care Provider] - 2 days Stand Alone Forms: Work/School Release
[2021-04-19] MEDS: oxyCODONE HCl Immed Release 5 MG TABLET PO (13:30)
[2021-04-19 13:34] LABS: Appearance Urine CLOUDY; Color Urine YELLOW; Glucose Urine UA NEG (NEG); Leukocyte Esterase Urine 2+ (NEG); Nitrite Urine NEG (NEG); UACC Culture Trigger YES; Urine Blood 1+ (NEG); Urine Ketones NEG (NEG); Urine Protein TRACE MG/DL (NEG-TRACE)
[2021-04-19 13:44] LABS: Bacteria Urine 1+ /LPF; Squamous Epithelial Cell Urine 2+ /LPF; WBC Urine TNTC /HPF (0-4)
[2021-04-19] MEDS: 0.9 % Sodium Chloride 1,000 ML 999 ML IV (14:02)
[2021-04-19 14:15] VITALS: BP 126/52; PULSE 88; RESP 18; O2SAT 100
[2021-04-19] MEDS: ondansetron HCL 4 MG/2 ML VIAL IVPUSH ×2 (14:20→16:23)
[2021-04-19] MEDS: HYDROmorphone HCl 2 MG/ML VIAL 1 MG IVPUSH (14:21)
[2021-04-19 14:44] VITALS: RESP 18
[2021-04-19 14:45] VITALS: RESP 17
--- NOTE | 2021-04-19 16:27 | PC.NURSE ---
PT SPITTING INTO EMESIS BAG, TEARFUL, ROCKING BACK AND FORTH ON STRETCHER. PT MEDICATED FOR NAUSEA, AWAITING CT RESULTS.
== END 2021-04-19 18:13 | disposition home or self-care (01) ==
PROVIDERS: Emergency Provider Emergency Medicine; PCP Internal Medicine
DX: N39.0 Urinary tract infection, site not specified (principal); R10.9 Unspecified abdominal pain; Z79.899 Other long term (current) drug therapy
CPT/HCPCS: 36415; 74176; 76775; 80053; 81001; 85025; 87086; 87088; 87186; 96361; 96374; 96375; 96376; 99283; 99284; J1170; J2405

== ENCOUNTER 2021-04-23 16:09 | Emergency (ER) | payer MEDICAID, SELFPAY ==
[2021-04-23 17:38] VITALS: BP 114/77; PULSE 83; RESP 18; TEMP 36.9; O2SAT 99; BMI 28.3
[2021-04-23] MEDS: Ondansetron ODT 4 MG TAB.RAPDIS TRANSLINGU (17:44)
--- NOTE | 2021-04-23 18:13 | ED_ITS ---
HPI - General Adult General Chief complaint: General Medical Stated complaint: Bladder/Kidney pain Time Seen by Provider: 04/23/21 18:13 Source: patient Mode of arrival: ambulatory Limitations: no limitations History of Present Illness HPI narrative: bladder pain for one week. [place] like she has a UTI. Now with bladder spasms. On the patient had CT abd/pelv and Ultrasound that were negative. Patient has not finished Cefdinir. She feels her spasm are worse. no fever. Onset (ago): day(s) Location: pelvis Radiation: non-radiation Severity: moderate Quality: burning Pain Consistency: intermittent Exacerbating factors: other (urination) Related Data Home Medications Medication Instructions Recorded Confirmed albuterol sulfate 2.5 mg/0.5 mL 5 mg INHALATION QID 05/17/20 09/08/20 solution for nebulization cetirizine 10 mg tablet (All Day 10 mg PO DAILY 05/17/20 09/08/20 Allergy (cetirizine)) montelukast 10 mg tablet 10 mg PO DAILY 05/17/20 09/08/20 (Singulair) omeprazole 20 mg capsule,delayed 20 mg PO DAILY 05/17/20 09/08/20 release Previous Rx's Medication Instructions Recorded nitrofurantoin macrocrystal 50 mg 50 mg PO BEDTIME 30 Days #30 cap 09/08/20 capsule (Macrodantin) nitrofurantoin 100 mg PO BID 14 Days #28 cap 09/08/20 monohydrate/macrocrystals 100 mg capsule (Macrobid) ondansetron HCl 4 mg tablet 4 mg PO Q8H PRN #10 tab 12/04/20 (Zofran) vancomycin 250 mg capsule 250 mg PO QID 10 Days #40 cap 12/04/20 ondansetron HCl 4 mg tablet 4 mg PO Q8H PRN #10 tab 12/20/20 (Zofran) pantoprazole 40 mg tablet,delayed 40 mg PO DAILY #20 tab 12/20/20 release (Protonix) acetaminophen 325 mg capsule 650 mg PO Q6H PRN #20 cap 01/11/21 nitrofurantoin 100 mg PO BID 7 Days #14 cap 01/11/21 monohydrate/macrocrystals 100 mg capsule (Macrobid) ondansetron 4 mg disintegrating 4 mg PO Q6H PRN #10 tab 01/11/21 tablet oxycodone 5 mg tablet 5 mg PO Q8H PRN #5 tab 01/11/21 phenazopyridine 200 mg tablet 200 mg PO TID PRN #6 tab 01/11/21 (Pyridium) cefdinir 300 mg capsule 300 mg PO BID #14 cap 04/19/21 ondansetron 4 mg disintegrating 4 mg PO Q8H #7 tab 04/19/21 tablet oxycodone 5 mg tablet 5 mg PO Q4-6H PRN #5 tab 04/19/21 phenazopyridine 200 mg tablet 200 mg PO TID #6 tab 04/19/21 (Pyridium) naproxen 500 mg tablet (Naprosyn) 500 mg PO BID #20 tab 04/23/21 tamsulosin 0.4 mg capsule (Flomax) 0.4 mg PO BEDTIME #7 cap 04/23/21 Allergies Allergy/AdvReac Type Severity Reaction Status Date / Time levofloxacin [From Levaquin] Allergy Intermediate INTERACTED Verified 04/19/21 12:07 W/ANTI DEPRESSANT morphine [MORPHINE] Allergy Intermediate ITCHING, Verified 04/19/21 12:07 HIVES trazodone [TRAZODONE] Allergy Mild TACHYCARDIA Verified 04/19/21 12:07 amitriptyline Allergy Unknown Unknown Verified 04/19/21 12:07 citalopram Allergy Unknown Unknown Verified 04/19/21 12:07 escitalopram Allergy Unknown Unknown Verified 04/19/21 12:07 ibuprofen Allergy Unknown Unknown Verified 04/19/21 12:07 ketorolac Allergy Unknown Unknown Verified 04/19/21 12:07 sertraline Allergy Unknown Unknown Verified 04/19/21 12:07 Sulfa (Sulfonamide Allergy Unknown Unknown Verified 04/19/21 12:07 Antibiotics) topiramate Allergy Unknown Unknown Verified 04/19/21 12:07 trimethoprim Allergy Unknown Unknown Verified 04/19/21 12:07 zolpidem Allergy Unknown Unknown Verified 04/19/21 12:07 NSAIDS (Non-Steroidal AdvReac Severe HYPEREMESIS Verified 04/19/21 12:07 Anti-Inflamma [NSAIDS (NON-STEROIDAL ANTI-INFLAMMA] From Celexa Allergy Intermediate INTERACTS Uncoded 04/13/20 16:15 W/LEVAQUIN ANTIDEPRESENT Allergy Unknown Unknown Uncoded 05/17/20 12:28 Sulfamethoxazole Allergy Unknown Unknown Uncoded 05/17/20 12:28 toradol Allergy Unknown Unknown Uncoded 05/17/20 12:28 From Ambien AdvReac Severe TACHYCARDIA Uncoded 04/13/20 16:15 From Ultram AdvReac Severe TACHYCARDIA Uncoded 04/13/20 16:15 From ZOLOFT AdvReac Severe TACHYCARDIA Uncoded 04/13/20 16:15 From TORADOL AdvReac Mild STOMACH Uncoded 04/13/20 16:15 UPSET Review of Systems Constitutional: Constitutional: Reports no additional constitutional complaints Eyes: Eyes: Reports no additional eye complaints ENT: Denies dizziness Cardiovascular: Cardiovascular: Reports no additional cardiovascular complaints Respiratory: Respiratory: Reports as per HPI Gastrointestinal: Gastrointestinal: Reports no additional gastrointestinal complaints Genitourinary: Genitourinary: Reports no additional female genitourinary complaints Musculoskeletal: Musculoskeletal: Reports no additional musculoskeletal complaints Integumentary/Breasts: Skin/Breast: Denies rash Neurologic: Reports system reviewed and no additional complaints, except as documented, Denies dizziness and Denies Sensory deficit (Neuro) Psychiatric: Psychiatric: Denies anxiety PMFSH Past Medical History Medical History Asthma Fibromyalgia Migraines Recurrent UTI Unspecified internal derangement of unspecified knee Surgical History History of partial hysterectomy Previous section Family History Family History Father No problems noted. Mother No problems noted. 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 Vital Signs: Vital Signs: Last Vital Signs Temp 98.4 F 04/23/21 17:38 Pulse 83 04/23/21 17:38 Resp 18 04/23/21 17:38 BP 114/77 04/23/21 17:38 Pulse Ox 99 04/23/21 17:38 Body Mass Index 28.3 Const: Other: complaining of bladder spasms General: healthy appearing Nutritional Appearance: average body habitus Orientation/consciousness: oriented to person and patient oriented x3 Limitations: no limitations HENMT: Head: Yes normal to inspection Ears: external ears normal General nose exam: Normal external nose present Mouth: Normal oral and palatal mucosa present and oropharynx normal Throat: Yes posterior oropharynx normal Eyes: General: appearance normal, both eyes and all related structures Neck: Other: supple Neck: Yes normal visual inspection Chest: Chest palpation & inspection: normal inspection of the chest Resp: Auscultation: clear to auscultation bilaterally Cardio: Jugular venous distension: no JVD Rate: regular rate Rhythm: regular rhythm Heart sounds: S1 normal heart sound present and S2 normal heart sound present GI: Other: abdomen is soft nontener Inspection: Yes normal to inspection Palpation (GI): Soft to palpation, nontender and No hepatosplenomegaly present Auscultation: normal bowel sounds : General: Yes no CVA tenderness Back/Spine/Pelvis: Back: no CVA tenderness Skin: General skin exam: no rashes or lesions noted Neuro: General: oriented to person and patient oriented x3 Cranial nerves: Yes CN's II-XII intact bilaterally Motor exam (neuro): 5/5 motor strength present throughout Sensory Exam: No Sensory deficit (Neuro) Extrem: General: Yes normal to inspection Psych: Appearance: grossly normal Course Reevaluation(s) Reevaluation #1: patient with Urine culture positive for ecoli sensitive to ev erything currently on day 3 of Cefdinir. Will add antiinflammatory and flomax Time: 18:23 Discharge Plan Discharge Clinical Impression: Recurrent UTI Patient Disposition: Home, Self-Care Instructions: Urinary Tract Infection in Women (ED) Prescriptions: New naproxen [Naprosyn] 500 mg tablet 500 mg PO BID Qty: 20 RF: 0 tamsulosin [Flomax] 0.4 mg capsule 0.4 mg PO BEDTIME Qty: 7 RF: 0 No Action vancomycin 250 mg capsule 250 mg PO QID 10 Days Qty: 40 RF: 0 ondansetron HCl [Zofran] 4 mg tablet 4 mg PO Q8H PRN (Reason: nausea and vomiting) Qty: 10 RF: 0 ondansetron HCl [Zofran] 4 mg tablet 4 mg PO Q8H PRN (Reason: nausea and vomiting) Qty: 10 RF: 0 pantoprazole [Protonix] 40 mg tablet,delayed release (DR/EC) 40 mg PO DAILY Qty: 20 RF: 0 ondansetron 4 mg tablet,disintegrating 4 mg PO Q6H PRN (Reason: nausea and vomiting) Qty: 10 RF: 0 nitrofurantoin monohyd/m-cryst [Macrobid] 100 mg capsule 100 mg PO BID 7 Days Qty: 14 RF: 0 phenazopyridine [Pyridium] 200 mg tablet 200 mg PO TID PRN (Reason: pain) Qty: 6 RF: 0 acetaminophen 325 mg capsule 650 mg PO Q6H PRN (Reason: pain) Qty: 20 RF: 0 oxycodone 5 mg tablet 5 mg PO Q8H PRN (Reason: pain) Qty: 5 RF: 0 phenazopyridine [Pyridium] 200 mg tablet 200 mg PO TID Qty: 6 RF: 0 cefdinir 300 mg capsule 300 mg PO BID Qty: 14 RF: 0 ondansetron 4 mg tablet,disintegrating 4 mg PO Q8H Qty: 7 RF: 0 oxycodone 5 mg tablet 5 mg PO Q4-6H PRN (Reason: pain) Qty: 5 RF: 0 montelukast [Singulair] 10 mg tablet 10 mg PO DAILY RF: 0 cetirizine [All Day Allergy (cetirizine)] 10 mg tablet 10 mg PO DAILY RF: 0 albuterol sulfate 2.5 mg/0.5 mL solution for nebulization 5 mg inhalation QID RF: 0 omeprazole 20 mg capsule,delayed release(DR/EC) 20 mg PO DAILY RF: 0 nitrofurantoin monohyd/m-cryst [Macrobid] 100 mg capsule 100 mg PO BID 14 Days Qty: 28 RF: 0 nitrofurantoin macrocrystal [Macrodantin] 50 mg capsule 50 mg PO BEDTIME 30 Days Qty: 30 RF: 5 Referrals: Adal Alves MD [Primary Care Provider] - 5 days
[2021-04-23] MEDS: Tamsulosin HCL 0.4 MG CAPSULE PO (18:41)
[2021-04-23 18:43] VITALS: BP 136/82; PULSE 75; RESP 14; O2SAT 100
== END 2021-04-23 19:14 | disposition home or self-care (01) ==
PROVIDERS: Emergency Provider Emergency Medicine; PCP Internal Medicine
DX: N39.0 Urinary tract infection, site not specified (principal); N32.89 Other specified disorders of bladder; Z79.899 Other long term (current) drug therapy
CPT/HCPCS: 96372; 99284; 99285

== ENCOUNTER 2021-05-05 12:59 | Emergency (ER) | payer MEDICAID, SELFPAY ==
--- NOTE | ~2021-05-05 | US_ITS ---
EXAMINATION: US RETROPERITONEAL LIMITED (RENAL ONLY) CLINICAL INFORMATION: Right flank. Question hydronephrosis.. COMPARISON: CT 04/19/2021 TECHNIQUE: Renal ultrasound FINDINGS: RIGHT KIDNEY: 12 x 4.1 x 4.7 cm (SAG x AP x TRV). The kidney is normal in size, contour, and echogenicity. Renal cortical thickness is normal. No calculi or focal parenchymal lesions. No hydronephrosis. LEFT KIDNEY: 12.5 x 5.2 x 5.6 cm (SAG x AP x TRV). The kidney is normal in size, contour, and echogenicity. Renal cortical thickness is normal. No calculi or focal parenchymal lesions. No hydronephrosis. US/US renal BI IMPRESSION: Unremarkable renal ultrasound. No evidence of renal calculi or hydronephrosis.
[2021-05-05 14:11] VITALS: BP 121/70; PULSE 87; RESP 18; TEMP 36.6; O2SAT 99; BMI 26.5
[2021-05-05 14:25] LABS: Appearance Urine CLEAR; Color Urine YELLOW; Glucose Urine UA NEG (NEG); Leukocyte Esterase Urine NEG (NEG); Nitrite Urine NEG (NEG); Specific Gravity - Urine <= 1.005 (1.005-1.025); UACC Culture Trigger NO; Urine Blood TRACE (NEG); Urine Ketones NEG (NEG); Urine Protein NEG (NEG-TRACE)
[2021-05-05 14:35] LABS: RBC Urine 0-2 /HPF (0); Squamous Epithelial Cell Urine 2+ /LPF; WBC Urine 0 /HPF (0-4)
--- NOTE | 2021-05-05 16:54 | ED_ITS ---
HPI - General Adult General Chief complaint: General Medical Stated complaint: kidney pain Time Seen by Provider: 05/05/21 15:35 Source: patient Mode of arrival: ambulatory Limitations: no limitations History of Present Illness HPI narrative: 45-year-old female who presents emergency department for evaluation of right flank pain. The patient states she has been having pain for approximately 3 weeks. The patient was initially seen on 04/19/2021 and diagnosed with urinary tract infection. The patient had a urine culture which grew E coli and Staphylococcus saprophyticus. The E coli was sensitive to cephalosporins, the staff a coccus was sensitive to nitro phenytoin, penicillin, tetracycline and Bactrim. [place] [address]. Patient had ultrasound which was unremarkable and a CT scan of the abdomen pelvis which revealed bladder wall thickening and improvement of the previous hydronephrosis. The patient was treated with Pyridium and cefdinir 300 mg twice a day for 7 days. She also received oxycodone. She states that her symptoms did not improve and she returned to the emergency department on 04/23/2021. The patient was started on Flomax and naproxen however patient states she did not take the naproxen since she is allergic to NSAIDs. The patient's symptoms did not im prove, she followed up with [facility] 04/30/2021. She states she had a pelvic exam was diagnosed with a yeast infection. The patient was treated with Diflucan. She was also diagnosed with urinary tract infection and was started on Cipro 250 mg twice a day for 7 days and Flagyl 500 mg twice a day for 7 days. She states that despite taking this medication she is still having significant right flank pain and urgency. She states she has a constant pressure and her right flank area which is 10/10, she has dysuria and urgency. She states she feels like she has to empty her bladder and only urinate small amounts of urine. She denied fever, chills, chest pain or shortness of breath. She has nausea but no vomiting. Related Data Home Medications Medication Instructions Recorded Confirmed albuterol sulfate 2.5 mg/0.5 mL 5 mg INHALATION QID 05/17/20 09/08/20 solution for nebulization cetirizine 10 mg tablet (All Day 10 mg PO DAILY 05/17/20 09/08/20 Allergy (cetirizine)) montelukast 10 mg tablet 10 mg PO DAILY 05/17/20 09/08/20 (Singulair) omeprazole 20 mg capsule,delayed 20 mg PO DAILY 05/17/20 09/08/20 release Previous Rx's Medication Instructions Recorded nitrofurantoin macrocrystal 50 mg 50 mg PO BEDTIME 30 Days #30 cap 09/08/20 capsule (Macrodantin) nitrofurantoin 100 mg PO BID 14 Days #28 cap 09/08/20 monohydrate/macrocrystals 100 mg capsule (Macrobid) ondansetron HCl 4 mg tablet 4 mg PO Q8H PRN #10 tab 12/04/20 (Zofran) vancomycin 250 mg capsule 250 mg PO QID 10 Days #40 cap 12/04/20 ondansetron HCl 4 mg tablet 4 mg PO Q8H PRN #10 tab 12/20/20 (Zofran) pantoprazole 40 mg tablet,delayed 40 mg PO DAILY #20 tab 12/20/20 release (Protonix) acetaminophen 325 mg capsule 650 mg PO Q6H PRN #20 cap 01/11/21 nitrofurantoin 100 mg PO BID 7 Days #14 cap 01/11/21 monohydrate/macrocrystals 100 mg capsule (Macrobid) ondansetron 4 mg disintegrating 4 mg PO Q6H PRN #10 tab 01/11/21 tablet oxycodone 5 mg tablet 5 mg PO Q8H PRN #5 tab 01/11/21 cefdinir 300 mg capsule 300 mg PO BID #14 cap 04/19/21 ondansetron 4 mg disintegrating 4 mg PO Q8H #7 tab 04/19/21 tablet tamsulosin 0.4 mg capsule (Flomax) 0.4 mg PO BEDTIME #7 cap 04/23/21 oxycodone 5 mg tablet 5 mg PO Q4H PRN #10 tab 05/05/21 phenazopyridine 200 mg tablet 200 mg PO TID PRN #10 tab 05/05/21 (Pyridium) Allergies Allergy/AdvReac Type Severity Reaction Status Date / Time levofloxacin [From Levaquin] Allergy Intermediate INTERACTED Verified 04/19/21 12:07 W/ANTI DEPRESSANT morphine [MORPHINE] Allergy Intermediate ITCHING, Verified 04/19/21 12:07 HIVES trazodone [TRAZODONE] Allergy Mild TACHYCARDIA Verified 04/19/21 12:07 amitriptyline Allergy Unknown Unknown Verified 04/19/21 12:07 citalopram Allergy Unknown Unknown Verified 04/19/21 12:07 escitalopram Allergy Unknown Unknown Verified 04/19/21 12:07 ibuprofen Allergy Unknown Unknown Verified 04/19/21 12:07 ketorolac Allergy Unknown Unknown Verified 04/19/21 12:07 sertraline Allergy Unknown Unknown Verified 04/19/21 12:07 Sulfa (Sulfonamide Allergy Unknown Unknown Verified 04/19/21 12:07 Antibiotics) topiramate Allergy Unknown Unknown Verified 04/19/21 12:07 trimethoprim Allergy Unknown Unknown Verified 04/19/21 12:07 zolpidem Allergy Unknown Unknown Verified 04/19/21 12:07 NSAIDS (Non-Steroidal AdvReac Severe HYPEREMESIS Verified 04/19/21 12:07 Anti-Inflamma [NSAIDS (NON-STEROIDAL ANTI-INFLAMMA] From Celexa Allergy Intermediate INTERACTS Uncoded 04/13/20 16:15 W/LEVAQUIN ANTIDEPRESENT Allergy Unknown Unknown Uncoded 05/17/20 12:28 Sulfamethoxazole Allergy Unknown Unknown Uncoded 05/17/20 12:28 toradol Allergy Unknown Unknown Uncoded 05/17/20 12:28 From Ambien AdvReac Severe TACHYCARDIA Uncoded 04/13/20 16:15 From Ultram AdvReac Severe TACHYCARDIA Uncoded 04/13/20 16:15 From ZOLOFT AdvReac Severe TACHYCARDIA Uncoded 04/13/20 16:15 From TORADOL AdvReac Mild STOMACH Uncoded 04/13/20 16:15 UPSET Review of Systems Review of Systems: Yes all other systems are reviewed and are negative PMFSH Past Medical History Medical History Asthma Fibromyalgia Migraines Recurrent UTI Unspecified internal derangement of unspecified knee Surgical History History of partial hysterectomy Previous section Family History Family History Father No problems noted. Mother No problems noted. 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 HENMT: Head: Yes normal to inspection, Yes normocephalic and Yes atraumatic Ears: external ears normal General nose exam: Normal external nose present Face and sinus: Yes normal facial exam Mouth: Normal oral and palatal mucosa present Throat: Yes posterior oropharynx normal Eyes: General: appearance normal, both eyes and all related structures Pupils: Equal, round and reactive pupils present Neck: Neck: Yes normal visual inspection, Yes no lymphadenopathy, Yes trachea midline and Yes supple Chest: Chest palpation & inspection: normal inspection of the chest and normal palpation of entire chest wall Resp: Effort & Inspection: normal respiratory effort and able to speak in complete sentences Auscultation: clear to auscultation bilaterally Cardio: Rate: regular rate Rhythm: regular rhythm Heart sounds: S1 normal heart sound present, S2 normal heart sound present and no murmurs GI: Inspection: Yes normal to inspection Palpation (GI): Soft to palpation, Tenderness to palpation present (GI) suprapubicly (Moderate) and no guarding Auscultation: normal bowel sounds : General: Yes CVA tenderness on the right (Moderate) Back/Spine/Pelvis: Back: CVA tenderness Skin: General skin exam: no rashes or lesions noted Neuro: Cranial nerves: Yes CN's II-XII intact bilaterally and Yes Equal, round and reactive pupils present Cognition (Neuro): normal cognition Motor exam (neuro): 5/5 motor strength present throughout Extrem: General: Yes normal to inspection Psych: Appearance: grossly normal Speech and movement: Normal speech and movement present Affect: normal affect Attitude: cooperative Thought process: Normal thought process present Thought content: Normal thought content present Course Course Course Narrative: 45-year-old female who presents emergency department for evaluation of 3 weeks of right flank pain , suprapubic pain/pressure, urgency and dysuria. This is the patient's 4th evaluation for this problem, she this is her 3rd ER visit and she was also seen [facility] earlier this week. The patient did have bed positive urine culture on 04/19/2021 and grew E coli as well as Staph saprophyticus. The E coli was sensitive to cephalosporins and she did complete a 7 day course with no improvement of her symptoms. At her recent [facility] visit she was diagnosed with the yeast infection and UTI started on Diflucan, ciprofloxacin and Flagyl despite these medications she is not feeling better. Her physical exam revealed normal vital signs . She does have right flank pain and suprapubic pain. The patient's urinalysis today was negative. I ordered a CBC, CMP, blood cultures x2, bladder scan, ultrasound of her kidneys to rule out hydronephrosis hydroureter. Patient be treated with Dilaudid 1 mg IV and normal saline x1 L. 1934: The patient is feeling better after the above treatment. The patient's [place] [address] but this is improved from her previous values. The patient's labs are otherwise unremarkable. Urinalysis was negative. Microscopic revealed 2 RBCs 0 WBCs and no bacteria. The patient's ultrasound of her kidneys revealed no hydronephrosis and no hydroureter. At this time, I do not have a clear etiology for the patient's pain. Doubt that she has urinary tract infection but I did tell her to finish her Cipro and Flagyl intake for Diflucan as prescribed her other provider. Given the patient's severe pain, I will prescribe oxycodone 5 mg pills, 1 pill every 4-6 hours as needed for pain. She was advised to also take Tylenol. She was discharged home Medical Decision Making Lab Data Result diagrams: 05/05/21 17:13 05/05/21 17:13 Labs: Lab Results 05/05/21 05/05/21 05/05/21 Range/Units 14:16 17:13 17:13 WBC 13.5 H (4.8-10.8) X10*3/uL RBC 4.70 (4.20-5.50) X10*6/uL Hgb 12.8 (12.0-16.0) g/dl Hct 38.9 (37-47) % MCV 82.8 (80-98) fL MCH 27.2 (27.0-33.0) pg MCHC 32.9 (31.0-35.0) g/dl RDW 14.9 (11.0-16.0) % Plt Count 427 H (160-400) X10*3/uL MPV 9.4 (9.4-12.3) fL Immature Gran % (Auto) 0.3 (0.0-0.4) % Neut % (Auto) 69.6 (45-73) % Lymph % (Auto) 21.9 (20-40) % [place] % (Auto) 6.6 (2-11) % Eos % (Auto) 0.9 (0-4) % Baso % (Auto) 0.7 (0-2) % Lymph # (Auto) 3.0 (1.2-4.9) X10*3/uL [place] # (Auto) 0.9 (0.1-1.2) X10*3/uL Eos # (Auto) 0.1 (0.0-0.4) X10*3/uL Baso # (Auto) 0.1 (0.0-0.2) X10*3/uL Abs Immat Gran (auto) 0.04 H (0.00-0.03) X10*3/uL Absolute Neuts (auto) 9.4 H (2.0-8.3) X10*3/uL Absolute Nucleated RBC 0.000 (0.0-0.012) X10*3/uL Nucleated RBC % (auto) 0.0 (0.0-0.2) /100WBC Sodium 138 (135-145) mmol/L Potassium 4.2 (3.3-5.1) mmol/L Chloride 105 (96-108) mmol/L Carbon Dioxide 22 (22-29) mmol/L Anion Gap 15 (12-20) BUN 6 L (9-16) mg/dL Creatinine 0.78 (0.5-1.4) mg/dL Estim Creat Clear Calc 85.2 Estimated GFR > 60 Random Glucose 99 (60-115) mg/dL Lactic Acid (0.5-2.0) mmol/L Calcium 9.9 D (8.4-10.2) mg/dL Total Bilirubin 0.7 (0.0-1.0) mg/dL AST 25 (5-31) U/L ALT 40 H (0-31) U/L Alkaline Phosphatase 89 (39-117) U/L Total Protein 8.4 H (6.5-8.0) g/dL Albumin 4.8 (3.5-5.0) g/dL Urine Color YELLOW Urine Appearance CLEAR Urine pH 7.0 (5.0-8.0) Ur Specific [place] <= 1.005 (1.005-1.025) Urine Protein NEG (NEG-TRACE) MG/DL Urine Glucose (UA) NEG (NEG) MG/DL Urine Ketones NEG (NEG) MG/DL Urine Blood TRACE (NEG) Urine Nitrite NEG (NEG) Ur Leukocyte Esterase NEG (NEG) Urine RBC 0-2 (0) /HPF Urine WBC 0 (0-4) /HPF Ur Squamous Epith Cells 2+ /LPF Urine Bacteria NONE /LPF 05/05/21 Range/Units 17:13 WBC (4.8-10.8) X10*3/uL RBC (4.20-5.50) X10*6/uL Hgb (12.0-16.0) g/dl Hct (37-47) % MCV (80-98) fL MCH (27.0-33.0) pg MCHC (31.0-35.0) g/dl RDW (11.0-16.0) % Plt Count (160-400) X10*3/uL MPV (9.4-12.3) fL Immature Gran % (Auto) (0.0-0.4) % Neut % (Auto) (45-73) % Lymph % (Auto) (20-40) % [place] % (Auto) (2-11) % Eos % (Auto) (0-4) % Baso % (Auto) (0-2) % Lymph # (Auto) (1.2-4.9) X10*3/uL [place] # (Auto) (0.1-1.2) X10*3/uL Eos # (Auto) (0.0-0.4) X10*3/uL Baso # (Auto) (0.0-0.2) X10*3/uL Abs Immat Gran (auto) (0.00-0.03) X10*3/uL Absolute Neuts (auto) (2.0-8.3) X10*3/uL Absolute Nucleated RBC (0.0-0.012) X10*3/uL Nucleated RBC % (auto) (0.0-0.2) /100WBC Sodium (135-145) mmol/L Potassium (3.3-5.1) mmol/L Chloride (96-108) mmol/L Carbon Dioxide (22-29) mmol/L Anion Gap (12-20) BUN (9-16) mg/dL Creatinine (0.5-1.4) mg/dL Estim Creat Clear Calc Estimated GFR Random Glucose (60-115) mg/dL Lactic Acid 0.8 (0.5-2.0) mmol/L Calcium (8.4-10.2) mg/dL Total Bilirubin (0.0-1.0) mg/dL AST (5-31) U/L ALT (0-31) U/L Alkaline Phosphatase (39-117) U/L Total Protein (6.5-8.0) g/dL Albumin (3.5-5.0) g/dL Urine Color Urine Appearance Urine pH (5.0-8.0) Ur Specific [place] (1.005-1.025) Urine Protein (NEG-TRACE) MG/DL Urine Glucose (UA) (NEG) MG/DL Urine Ketones (NEG) MG/DL Urine Blood (NEG) Urine Nitrite (NEG) Ur Leukocyte Esterase (NEG) Urine RBC (0) /HPF Urine WBC (0-4) /HPF Ur Squamous Epith Cells /LPF Urine Bacteria /LPF Discharge Plan Discharge Clinical Impression: Acute right flank pain Patient Disposition: Home, Self-Care Instructions: Flank Pain (ED) Additional Instructions: Your blood work was unremarkable. Your urinalysis and microscopic evaluation did not reveal any evidence for infection. You should finish your ciprofloxacin, Flagyl and take the Diflucan as directed by your other provider. Take Tylenol (acetaminophen) 500 mg pills, 2 pills every 4-6 hours as needed for pain. For pain not relieved by Tylenol take oxycodone 5 mg pills, 1 pill every 4 hours as needed for pain. Do not drive or work while taking this medication since they can cause sleepiness. Oxycodone is a narcotic medication that can be addicting. If you are concerned about addiction you can ask the pharmacist for less pills or do not get this prescription filled. Follow-up with your doctor in 2 days. Please return to the emergency department if your symptoms get worse or if you develop any symptoms that are concerning to you. Prescriptions: New oxycodone 5 mg tablet 5 mg PO Q4H PRN (Reason: pain) Qty: 10 RF: 0 phenazopyridine [Pyridium] 200 mg tablet 200 mg PO TID PRN (Reason: Burning with urination) Qty: 10 RF: 0 Discontinued phenazopyridine [Pyridium] 200 mg tablet 200 mg PO TID PRN (Reason: pain) Qty: 6 RF: 0 phenazopyridine [Pyridium] 200 mg tablet 200 mg PO TID Qty: 6 RF: 0 oxycodone 5 mg tablet 5 mg PO Q4-6H PRN (Reason: pain) Qty: 5 RF: 0 No Action vancomycin 250 mg capsule 250 mg PO QID 10 Days Qty: 40 RF: 0 ondansetron HCl [Zofran] 4 mg tablet 4 mg PO Q8H PRN (Reason: nausea and vomiting) Qty: 10 RF: 0 ondansetron HCl [Zofran] 4 mg tablet 4 mg PO Q8H PRN (Reason: nausea and vomiting) Qty: 10 RF: 0 pantoprazole [Protonix] 40 mg tablet,delayed release (DR/EC) 40 mg PO DAILY Qty: 20 RF: 0 ondansetron 4 mg tablet,disintegrating 4 mg PO Q6H PRN (Reason: nausea and vomiting) Qty: 10 RF: 0 nitrofurantoin monohyd/m-cryst [Macrobid] 100 mg capsule 100 mg PO BID 7 Days Qty: 14 RF: 0 acetaminophen 325 mg capsule 650 mg PO Q6H PRN (Reason: pain) Qty: 20 RF: 0 oxycodone 5 mg tablet 5 mg PO Q8H PRN (Reason: pain) Qty: 5 RF: 0 cefdinir 300 mg capsule 300 mg PO BID Qty: 14 RF: 0 ondansetron 4 mg tablet,disintegrating 4 mg PO Q8H Qty: 7 RF: 0 tamsulosin [Flomax] 0.4 mg capsule 0.4 mg PO BEDTIME Qty: 7 RF: 0 montelukast [Singulair] 10 mg tablet 10 mg PO DAILY RF: 0 cetirizine [All Day Allergy (cetirizine)] 10 mg tablet 10 mg PO DAILY RF: 0 albuterol sulfate 2.5 mg/0.5 mL solution for nebulization 5 mg inhalation QID RF: 0 omeprazole 20 mg capsule,delayed release(DR/EC) 20 mg PO DAILY RF: 0 nitrofurantoin monohyd/m-cryst [Macrobid] 100 mg capsule 100 mg PO BID 14 Days Qty: 28 RF: 0 nitrofurantoin macrocrystal [Macrodantin] 50 mg capsule 50 mg PO BEDTIME 30 Days Qty: 30 RF: 5
[2021-05-05 17:03] VITALS: BP 121/75; PULSE 87; RESP 20; TEMP 36.9; O2SAT 100
[2021-05-05 17:18] LABS: MANUAL DIFF FLAG NO
[2021-05-05] MEDS: Phenazopyridine HCL 200 MG TABLET PO (17:22)
[2021-05-05] MEDS: HYDROmorphone HCl 1 MG/ML SYRINGE IVPUSH (17:22)
[2021-05-05] MEDS: 0.9 % Sodium Chloride 1,000 ML 999 ML IV (17:22)
[2021-05-05 17:26] LABS: Basophils Absolute Auto 0.1 X10*3/uL (0.0-0.2); Basophils Percent Auto 0.7 % (0-2); Eosinophils Absolute Auto 0.1 X10*3/uL (0.0-0.4); Eosinophils Percent Auto 0.9 % (0-4); Hematocrit 38.9 % (37-47); Hemoglobin 12.8 g/dl (12.0-16.0); Imm Gran Abs Auto 0.04 X10*3/uL (0.00-0.03); Imm Gran Pct Auto 0.3 % (0.0-0.4); Lymphocytes Percent Auto 21.9 % (20-40); Mean Corpuscular HGB Conc 32.9 g/dl (31.0-35.0); Mean Corpuscular Hemoglobin 27.2 pg (27.0-33.0); Mean Corpuscular Volume 82.8 fL (80-98); Mean Platelet Volume 9.4 fL (9.4-12.3); Monocytes Absolute Auto 0.9 X10*3/uL (0.1-1.2); Monocytes Percent Auto 6.6 % (2-11); Neutrophils Absolute Auto 9.4 X10*3/uL (2.0-8.3); Neutrophils Percent Auto 69.6 % (45-73); Platelet Count 427 X10*3/uL (160-400); Red Cell Distribution Width 14.9 % (11.0-16.0); White Blood Count 13.5 X10*3/uL (4.8-10.8)
[2021-05-05 17:32] LABS: Lactic Acid 0.8 mmol/L (0.5-2.0)
[2021-05-05 17:38] LABS: Alanine Aminotransferase 40 U/L (0-31); Albumin Level 4.8 g/dL (3.5-5.0); Alkaline Phosphatase 89 U/L (39-117); Anion Gap 15 (12-20); Aspartate Amino Transferase 25 U/L (5-31); Bilirubin Total 0.7 mg/dL (0.0-1.0); Blood Urea Nitrogen 6 mg/dL (9-16); Calcium 9.9 mg/dL (8.4-10.2); Carbon Dioxide 22 mmol/L (22-29); Chloride 105 mmol/L (96-108); Creatinine Clr Calc Pharmacy 85.2; Estimated Glomerular Filt Rate > 60; Glucose Random 99 mg/dL (60-115); Potassium 4.2 mmol/L (3.3-5.1); Sodium 138 mmol/L (135-145); Total Protein 8.4 g/dL (6.5-8.0)
[2021-05-05 19:07] VITALS: BP 105/60; PULSE 76; RESP 16; O2SAT 97
== END 2021-05-05 20:13 | disposition home or self-care (01) ==
PROVIDERS: Emergency Provider Emergency Medicine Emergency Medical Services; PCP Internal Medicine
DX: N23 Unspecified renal colic (principal); R30.0 Dysuria; R11.0 Nausea; F12.90 Cannabis use, unspecified, uncomplicated; Z79.899 Other long term (current) drug therapy
CPT/HCPCS: 36415; 51798; 76775; 80053; 81001; 83605; 85025; 87040; 96361; 96374; 99284; J1170

== ENCOUNTER → 2021-05-09 14:03 | Outpatient (BNVA) | payer MEDICAID, SELFPAY | PROVIDERS: PCP Internal Medicine | DX: N39.0 Urinary tract infection, site not specified (principal) | CPT/HCPCS: 99212 ==

== ENCOUNTER 2021-05-18 13:18 | Outpatient (REF) | payer MEDICAID, SELFPAY ==
--- NOTE | ~2021-05-18 | MR_ITS ---
EXAMINATION: MR LUMBAR SPINE WITHOUT CONTRAST CLINICAL INFORMATION: Lower back pain. Right leg numbness. COMPARISON: Most recent CT abdomen/pelvis dated 04/19/2021. TECHNIQUE: MRI of the lumbar spine was obtained using routine sequences without contrast. FINDINGS: VERTEBRAL BODIES AND PARASPINAL STRUCTURES: The lumbar lordosis is maintained. No acute fracture or subluxation. No loss of vertebral body height. Loss of intervertebral disc height with disc desiccation at L5-S1. The remaining intervertebral discs are well hydrated. No marrow edema to suggest acute osseous injury. The visualized paraspinal soft tissues are unremarkable. CONUS MEDULLARIS AND CAUDA EQUINA: Normal, terminating at the level of the L1-L2 intervertebral disc. SPINAL LEVELS: T12-L1: No significant disc bulge. No central canal or neural foraminal stenosis. L1-L2: No significant disc bulge. No central canal or neural foraminal stenosis. L2-L3: No significant disc bulge. No central canal or neural foraminal stenosis. L3-L4: No significant disc bulge. No central canal or neural foraminal stenosis. L4-L5: Minimal left subarticular disc bulge with bilateral facet arthropathy and thickening of ligamentum flavum. No significant central canal or neural foraminal stenosis. L5-S1: Mild broad-based disc bulge with posterior annular fissuring. Bilateral facet arthropathy. No significant central canal or neural foraminal stenosis. MR/MR lumbar spine wo con IMPRESSION: 1. Mild degenerative disc disease at L5-S1 with a mild broad-based disc bulge and posterior annular fissuring. Bilateral facet arthropathy. No significant central canal or neural foraminal stenosis. 2. Minimal left subarticular disc bulge at L4-L5 with bilateral facet arthropathy. No significant central canal or neural foraminal stenosis.
--- NOTE | ~2021-05-18 | MR_ITS ---
EXAMINATION: MR THORACIC SPINE WITHOUT CONTRAST CLINICAL INFORMATION: Mid and lower back pain. Right leg numbness. COMPARISON: None TECHNIQUE: MRI of the thoracic spine was obtained using routine sequences without contrast. FINDINGS: VERTEBRAL BODIES AND PARASPINAL STRUCTURES: Normal vertebral body alignment. The thoracic kyphosis is maintained. No acute fracture or subluxation. No loss of vertebral body or intervertebral disc height. The intervertebral disks are well hydrated. Vertebral body hemangioma within T7. No abnormal marrow signal to suggest acute osseous injury. The visualized paraspinal soft tissues are unremarkable. SPINAL LEVELS: C7-T1: No significant disc bulge. No central canal or neural foraminal stenosis. T1-T2: No significant disc bulge. No central canal or neural foraminal stenosis. T2-T3: No significant disc bulge. No central canal or neural foraminal stenosis. T3-T4: No significant disc bulge. No central canal or neural foraminal stenosis. T4-T5: No significant disc bulge. No central canal or neural foraminal stenosis. T5-T6: No significant disc bulge. No central canal or neural foraminal stenosis. T6-T7: No significant disc bulge. No central canal or neural foraminal stenosis. T7-T8: No significant disc bulge. No central canal or neural foraminal stenosis. T8-T9: No significant disc bulge. No central canal or neural foraminal stenosis. T9-T10: No significant disc bulge. No central canal or neural foraminal stenosis. T10-T11: No significant disc bulge. No central canal or neural foraminal stenosis. T11-T12: No significant disc bulge. No central canal or neural foraminal stenosis. T12-L1: No significant disc bulge. No central canal or neural foraminal stenosis. MR/MR thoracic spine wo con IMPRESSION: Unremarkable examination.
== END 2021-05-18 13:19 | disposition home or self-care (01) ==
LOC: HO.MRI 13:18
PROVIDERS: PCP Internal Medicine; Visit Provider Internal Medicine
DX: M54.50 Low back pain, unspecified (principal); M54.6 Pain in thoracic spine
CPT/HCPCS: 72146; 72148

== ENCOUNTER → 2021-05-24 08:06 | Outpatient (BNVA) | payer MEDICAID, SELFPAY | PROVIDERS: PCP Internal Medicine | DX: N39.0 Urinary tract infection, site not specified (principal); M41.9 Scoliosis, unspecified; M79.7 Fibromyalgia; G43.909 Migraine, unspecified, not intractable, without status migrainosus; F12.10 Cannabis abuse, uncomplicated; Z88.6 Allergy status to analgesic agent; Z88.8 Allergy status to other drugs, medicaments and biological substances | CPT/HCPCS: 99212 ==

== ENCOUNTER → 2021-06-27 14:15 | Outpatient (BNVA) | payer MEDICAID, SELFPAY | PROVIDERS: PCP Internal Medicine; Visit Provider Nurse Practitioner Family | DX: M53.3 Sacrococcygeal disorders, not elsewhere classified (principal) | CPT/HCPCS: 99202 ==

== ENCOUNTER → 2021-07-02 14:19 | Outpatient (BNVA) | payer MEDICAID, SELFPAY | PROVIDERS: PCP Internal Medicine | DX: N39.0 Urinary tract infection, site not specified (principal) | CPT/HCPCS: 99212 ==

== ENCOUNTER 2021-07-09 14:14 | Outpatient (REF) | payer MEDICAID, SELFPAY | END 2021-07-09 14:15 | disposition home or self-care (01) | LOC: HO.LAB 14:14 | DX: N39.0 Urinary tract infection, site not specified (principal) | CPT/HCPCS: 87086; 99212 ==

== ENCOUNTER 2021-08-08 14:47 | Outpatient (REF) | payer MEDICAID, SELFPAY ==
--- NOTE | ~2021-08-08 | US_ITS ---
EXAMINATION: US RETROPERITONEAL LIMITED (RENAL ONLY) CLINICAL INFORMATION: Urinary tract infection, site not specified. COMPARISON: Bilateral renal ultrasounds dated 05/05/2021 and 04/19/2021. CT abdomen and pelvis without contrast dated 04/19/2021. TECHNIQUE: Real-time imaging of the kidneys. FINDINGS: RIGHT KIDNEY: 11.5 x 4.4 x 4.7 cm (SAG x AP x TRV). The kidney is normal in size, contour, and echogenicity. Renal cortical thickness is normal. No calculi or focal parenchymal lesions. No hydronephrosis. LEFT KIDNEY: 12.6 x 5.1 x 3.9 cm (SAG x AP x TRV). The kidney is normal in size, contour, and echogenicity. Renal cortical thickness is normal. No calculi or focal parenchymal lesions. No hydronephrosis. US/US renal BI IMPRESSION: Normal renal ultrasound.
== END 2021-08-08 14:48 | disposition home or self-care (01) ==
LOC: HO.US 14:47
PROVIDERS: PCP Internal Medicine
DX: N39.0 Urinary tract infection, site not specified (principal)
CPT/HCPCS: 76775

== ENCOUNTER 2021-10-11 12:10 | Outpatient (REF) | payer MEDICAID, SELFPAY ==
--- NOTE | ~2021-10-11 | XR_ITS ---
EXAMINATION: XR ELBOW, LEFT CLINICAL INFORMATION: Pain COMPARISON: Previous x-ray March 2011 TECHNIQUE: AP, lateral, and oblique views of the left elbow. FINDINGS: The bones and soft tissues are normal. No fracture or joint effusion. Alignment is anatomic. Joint spaces are maintained. XR/XR elbow LT 2V IMPRESSION: Normal left elbow.
== END 2021-10-11 12:11 | disposition home or self-care (01) ==
LOC: HO.XRAY 12:10
PROVIDERS: PCP Internal Medicine; Visit Provider Internal Medicine
DX: M25.522 Pain in left elbow (principal)
CPT/HCPCS: 73070

== ENCOUNTER 2021-10-15 12:35 | Outpatient (REF) | payer MEDICAID, SELFPAY ==
[2021-10-16 04:39] LABS: CT PCR NOT DETECTED (Not Detect.); NG PCR NOT DETECTED (Not Detect.)
[2021-10-18 03:41] LABS: HPV mRNA E6/E7 rflx Not Detected (Not Detected)
== END 2021-10-15 12:36 | disposition home or self-care (01) ==
LOC: HO.LAB 12:35
PROVIDERS: Visit Provider Obstetrics & Gynecology
DX: Z01.419 Encounter for gynecological examination (general) (routine) without abnormal findings (principal); Z11.51 Encounter for screening for human papillomavirus (HPV); N72 Inflammatory disease of cervix uteri
CPT/HCPCS: 87491; 87591; 87624; 88142

== ENCOUNTER 2021-11-19 07:58 | Outpatient (REF) | payer MEDICAID, SELFPAY | END 2021-11-19 07:59 | disposition home or self-care (01) | LOC: HO.HOSX 07:58 | PROVIDERS: Visit Provider Physician Assistant | DX: Z13.89 Encounter for screening for other disorder (principal) ==

== ENCOUNTER 2021-12-22 11:13 | Emergency (ER) | payer MEDICAID, SELFPAY ==
--- NOTE | ~2021-12-22 | XR_ITS ---
EXAMINATION: XR CHEST CLINICAL INFORMATION: Cough. COMPARISON: Chest radiograph dated 05/26/2018. TECHNIQUE: Frontal view of the chest was obtained. FINDINGS: The lungs are clear. The cardiomediastinal silhouette is normal in size. There is no pleural effusion or pneumothorax. No acute osseous abnormality. XR/XR chest 1V IMPRESSION: No acute cardiopulmonary findings.
[2021-12-22 11:25] VITALS: BP 132/73; PULSE 110; RESP 18; TEMP 35.9; O2SAT 98; BMI 26.5
--- NOTE | 2021-12-22 11:47 | ED.GENADULT ---
HPI - General Adult General Chief complaint: Dyspnea Stated complaint: Asthma Allergies Time Seen by Provider: 12/22/21 11:47 Source: patient Mode of arrival: ambulatory Limitations: no limitations History of Present Illness HPI narrative: Patient is a 46 year old female presenting to the emergency department today with wheezing. Patient states that she has a history of asthma and yearly allergies but today she has been much more wheezy. Patient denies any dizziness, lightheadedness, abdominal pain, nausea, vomiting, fever, chills, blurry vision, double vision, loss of vision, chest pain, difficulty breathing, shortness of breath, back pain, night sweats, pain with urination, increased urinary frequency, increased urinary urgency, blood in her urine or stool, syncope or a near syncopal episode, recent trauma or falls, bowel incontinence, bladder incontinence, bowel retention, bladder retention, or any other complaints at this time. Onset (ago): day(s) Severity: mild Severity scale (1-10): 2 Relieving factors: none Exacerbating factors: none Associated symptoms: denies other symptoms Treatments prior to arrival: none Related Data Home Medications Medication Instructions Recorded Confirmed albuterol sulfate 2.5 mg/0.5 mL 5 mg INHALATION QID 05/17/20 07/02/21 solution for nebulization cetirizine 10 mg tablet (All Day 10 mg PO DAILY 05/17/20 07/02/21 Allergy (cetirizine)) montelukast 10 mg tablet 10 mg PO DAILY 05/17/20 07/02/21 (Singulair) albuterol sulfate 2.5 mg INHALATION TID PRN 05/24/21 07/02/21 omeprazole 40 mg capsule,delayed 40 mg PO BID 05/24/21 07/02/21 release oxycodone 5 mg capsule 5 mg PO Q12H PRN 05/24/21 07/02/21 blood sugar diagnostic (FreeStyle #10 ea 07/02/21 07/02/21 Lite Strips) lancets 33 gauge (TRUEplus Lancets) #100 ea 07/02/21 07/02/21 Previous Rx's Medication Instructions Recorded acetaminophen 325 mg capsule 650 mg PO Q6H PRN #20 cap 01/11/21 ondansetron 4 mg disintegrating 4 mg PO Q8H #7 tab 04/19/21 tablet nitrofurantoin 100 mg PO BID 7 Days #14 cap 05/24/21 monohydrate/macrocrystals 100 mg capsule (Macrobid) ascorbic acid (vitamin C) 1,000 mg 1 g PO DAILY 90 Days #90 tab 07/02/21 tablet cranberry 400 mg capsule 400 mg PO DAILY 30 Days #30 cap 07/02/21 ondansetron HCl 4 mg tablet 8 mg PO Q12H PRN #20 tab 07/02/21 (Zofran) phenazopyridine 100 mg tablet 100 mg PO Q8H PRN #20 tab 07/09/21 (Pyridium) loratadine 10 mg tablet (Allergy 10 mg PO DAILY #30 tab 12/22/21 Relief (loratadine)) oxymetazoline 0.05 % nasal mist 2 spray INTRANASAL Q12H PRN 3 Days 12/22/21 (Afrin (oxymetazoline)) #15 ml prednisone 20 mg tablet 20 mg PO DAILY 12 Days #26 tab 12/22/21 Allergies Allergy/AdvReac Type Severity Reaction Status Date / Time levofloxacin [From Levaquin] Allergy Intermediate INTERACTED Verified 10/15/21 13:13 W/ANTI DEPRESSANT morphine [MORPHINE] Allergy Intermediate ITCHING, Verified 10/15/21 13:13 HIVES trazodone [TRAZODONE] Allergy Mild TACHYCARDIA Verified 10/15/21 13:13 amitriptyline Allergy Unknown Unknown Verified 10/15/21 13:13 citalopram Allergy Unknown Unknown Verified 10/15/21 13:13 escitalopram Allergy Unknown Unknown Verified 10/15/21 13:13 ibuprofen Allergy Unknown Unknown Verified 10/15/21 13:13 ketorolac Allergy Unknown Unknown Verified 10/15/21 13:13 sertraline Allergy Unknown Unknown Verified 10/15/21 13:13 Sulfa (Sulfonamide Allergy Unknown Unknown Verified 10/15/21 13:13 Antibiotics) topiramate Allergy Unknown Unknown Verified 10/15/21 13:13 trimethoprim Allergy Unknown Unknown Verified 10/15/21 13:13 zolpidem Allergy Unknown Unknown Verified 10/15/21 13:13 NSAIDS (Non-Steroidal AdvReac Severe HYPEREMESIS Verified 10/15/21 13:13 Anti-Inflamma [NSAIDS (NON-STEROIDAL ANTI-INFLAMMA] From Celexa Allergy Intermediate INTERACTS Uncoded 07/09/21 14:32 W/LEVAQUIN ANTIDEPRESENT Allergy Unknown Unknown Uncoded 07/09/21 14:32 Sulfamethoxazole Allergy Unknown Unknown Uncoded 07/09/21 14:32 toradol Allergy Unknown Unknown Uncoded 07/09/21 14:32 From Ambien AdvReac Severe TACHYCARDIA Uncoded 07/09/21 14:32 From Ultram AdvReac Severe TACHYCARDIA Uncoded 07/09/21 14:32 From ZOLOFT AdvReac Severe TACHYCARDIA Uncoded 07/09/21 14:32 From TORADOL AdvReac Mild STOMACH Uncoded 07/09/21 14:32 UPSET Review of Systems Constitutional: Constitutional: Reports no additional constitutional complaints, Denies chills, Denies fever(s) and Denies night sweats Eyes: Eyes: Reports no additional eye complaints, Denies blurry vision, Denies change in vision, Denies diplopia, Denies eye discharge, Denies loss of vision and Denies eye pain ENT: Denies dizziness Cardiovascular: Cardiovascular: Reports no additional cardiovascular complaints, Denies chest pain, Denies lightheadedness, Denies Loss of Consciousness and Denies dyspnea Respiratory: Respiratory: Reports no additional respiratory complaints, Denies dyspnea and Reports wheezing Gastrointestinal: Gastrointestinal: Reports no additional gastrointestinal complaints, Denies abdominal pain, Denies melena, Denies hematochezia, Denies change in bowel habits and Denies change in stool character Genitourinary: Genitourinary: Denies hematuria, Denies urinary frequency, Denies dysuria, Denies urinary incontinence, Denies urinary hesitancy and Denies urinary urgency Musculoskeletal: Musculoskeletal: Reports no additional musculoskeletal complaints, Denies numbness and Denies tingling Neurologic: Denies dizziness, Denies loss of vision, Denies numbness and Denies tingling Psychiatric: Psychiatric: Reports no additional psychiatric complaints Endocrine: Endocrine: Reports no additional endocrine complaints Hematologic/Lymphatic: Hematologic/Lymphatic: Reports no additional hematologic/lymphatic complaints Allergic/Immunologic: Allergic/Immunologic: Reports no additional allergic/immunologic complaints and Reports wheezing PMFSH Past Medical History Attestation statement: The following information was validated with the patient. Source: old records reviewed Medical History Asthma Fibromyalgia Migraines Recurrent UTI Unspecified internal derangement of unspecified knee Surgical History History of left oophorectomy History of partial hysterectomy Previous section Family History Family History Father No problems noted. Mother No problems noted. Social History Social History Alcohol intake: never Substance Use Type: Marijuana Advance Directives: No Advance Directives Information Provided: No Current occupational status: unemployed Current occupation: [employer] - Right Handed Physical Exam ED Vital Signs: Vital Signs - 24 hr 12/22/21 11:25 12/22/21 12:36 Temperature 96.6 F L Pulse Rate 110 H 110 H Respiratory Rate 18 20 Blood Pressure 132/73 Pulse Oximetry 98 BMI result Body Mass Index 26.5 Const General: cooperative, no acute distress, alert and awake Nutritional Appearance: well nourished Orientation/consciousness: patient oriented x3 Limitations: no limitations HENMT Head: Yes normal to inspection and Yes atraumatic Ears: hearing grossly normal bilaterally and external ears normal General nose exam: Normal external nose present, no nasal discharge noted and no epistaxis Face and sinus: Yes normal facial exam, No abrasion and No laceration Mouth: Normal oral and palatal mucosa present, no drooling and no muffled voice Eyes General: appearance normal, both eyes and all related structures Periorbital: periorbital findings normal Eyelids: Yes eyelids normal Conjunctivae: conjunctivae normal Pupils: Equal, round and reactive pupils present EOM: EOMs intact bilaterally Neck Neck: Yes normal visual inspection, Yes full ROM and Yes no lymphadenopathy Chest Chest palpation & inspection: normal inspection of the chest Resp Effort & Inspection: normal respiratory effort and able to speak in complete sentences Auscultation: wheezes scattered wheezes and throughout Cardio Rate: regular rate Rhythm: regular rhythm GI Inspection: Yes normal to inspection Neuro General: patient oriented x3 and moves all extremities Cranial nerves: Yes Equal, round and reactive pupils present Cognition (Neuro): normal cognition Motor exam (neuro): 5/5 motor strength present throughout Sensory Exam: Normal double simultaneous stimulation for sensation Coordination: [id number] test normal Extrem General: Yes normal to inspection, Yes full ROM and Yes capillary refill normal Psych Appearance: grossly normal Mental Status: mental status grossly normal Affect: normal affect Attitude: cooperative Thought process: Normal thought process present Thought content: Normal thought content present Insight: Good insight present (Psych) Medical Decision Making MDM Narrative Medical decision making narrative: Patient is a 46 year old female presenting to the emergency department today with increased wheezing. Patient's physical exam showed diffuse wheezing throughout all lung agarwal. Patient's chest x-ray showed no acute process. I explained my physical exam findings as well as all test results to the patient. I answered all questions asked by the patient. Patient received IM Decadron and a duoneb treatment which she stated helped her symptoms significantly. I stressed the importance of the patient taking her medication as prescribed. I stressed the importance of the patient following up with her primary care provider. I stressed the importance of the patient returning to the emergency department immediately if her symptoms were to worsen or if she were to develop any dizziness, shortness of breath, difficulty breathing, chest pain, blurry vision, loss of vision, nausea, vomiting, abdominal pain, fever, chills, back pain, or any other complaints. Patient verbalized agreement and understanding with this treatment plan and discharge. Differential Diagnosis Differential Diagnosis: asthma exacerbation Medical Records Medical records reviewed: Yes I reviewed the patient's medical records. Lab Data Lab results reviewed: Yes I reviewed the patient's lab results. Labs: Lab Results 12/22/21 12/22/21 Range/Units 12:31 12:48 COVID-19 ([facility]NY) Negative (Negative) COVID-19 Clin Com See Note Influenza Type A ([facility]) Negative (Negative) Influenza Type B ([facility]) Negative (Negative) Influenza A & B Note See Note Imaging Data Chest x-ray: Attestation: I personally reviewed and interpreted this imaging study as follows: My impression: No acute process. Radiologist's impression: EXAMINATION: XR CHEST CLINICAL INFORMATION: Cough. COMPARISON: Chest radiograph dated 05/26/2018. TECHNIQUE: Frontal view of the chest was obtained. FINDINGS: The lungs are clear. The cardiomediastinal silhouette is normal in size. There is no pleural effusion or pneumothorax. No acute osseous abnormality. XR/XR chest 1V IMPRESSION: No acute cardiopulmonary findings. Dictated By: Ambrose Cullen MD Signed By: Electronically signed by Ambrose Cullen MD 12/22/21 [id number] Discharge Plan Discharge Clinical Impression: Asthma, Allergies Patient Disposition: Home, Self-Care Instructions: Asthma (DC) Additional Instructions: Follow up with your primary care provider. Return to the emergency department immediately if your symptoms worsen or if you develop any dizziness, shortness of breath, difficulty breathing, chest pain, blurry vision, loss of vision, nausea, vomiting, abdominal pain, fever, chills, back pain, or any other complaints. Prescriptions: New prednisone 20 mg tablet 20 mg PO DAILY 12 Days Qty: 26 0RF Rx Instructions: Take 3 tablets for 5 days THEN; Take 2 tablets for 4 days THEN; Take 1 tablet for 3 days Afrin (oxymetazoline) 0.05 % mist 2 spray intranasal Q12H PRN (Reason: nasal congestion) 3 Days Qty: 15 0RF loratadine [Allergy Relief (loratadine)] 10 mg tablet 10 mg PO DAILY Qty: 30 0RF No Action acetaminophen 325 mg capsule 650 mg PO Q6H PRN (Reason: pain) Qty: 20 0RF ondansetron 4 mg tablet,disintegrating 4 mg PO Q8H Qty: 7 0RF montelukast [Singulair] 10 mg tablet 10 mg PO DAILY 0RF cetirizine [All Day Allergy (cetirizine)] 10 mg tablet 10 mg PO DAILY 0RF albuterol sulfate 2.5 mg/0.5 mL solution for nebulization 5 mg inhalation QID 0RF phenazopyridine [Pyridium] 100 mg tablet 100 mg PO Q8H PRN (Reason: pain) Qty: 20 0RF (DME) lancets [TRUEplus Lancets] 33 gauge misc See Rx Instructions ea Not Applicable DAILY Qty: 100 0RF Rx Instructions: As directed (DME) FreeStyle Lite Strips Strip See Rx Instructions ea Not Applicable DAILY Qty: 10 0RF Rx Instructions: As directed ascorbic acid (vitamin C) 1,000 mg tablet 1 g PO DAILY 90 Days Qty: 90 1RF ondansetron HCl [Zofran] 4 mg tablet 8 mg PO Q12H PRN (Reason: nausea and vomiting) Qty: 20 0RF cranberry 400 mg capsule 400 mg PO DAILY 30 Days Qty: 30 3RF Rx Instructions: administer with a meal oxycodone 5 mg capsule 5 mg PO Q12H PRN (Reason: back pain) 0RF albuterol sulfate 2.5 mg /3 mL (0.083 %) solution for nebulization 2.5 mg inhalation TID PRN (Reason: asthma) 0RF omeprazole 40 mg capsule,delayed release(DR/EC) 40 mg PO BID 0RF nitrofurantoin monohyd/m-cryst [Macrobid] 100 mg capsule 100 mg PO BID 7 Days Qty: 14 0RF Rx Instructions: must administer with a meal/food Referrals: Adal Alves MD [Primary Care Provider] - Stand Alone Forms: Work/School Release Print Language: Guyanese
[2021-12-22] MEDS: dexAMETHasone sod phosphate 10 MG/ML VIAL IM (12:05)
[2021-12-22 12:36] VITALS: PULSE 110; RESP 20; O2SAT 98
[2021-12-22] MEDS: Albuterol/Iprat 2.5/0.5MG 3 ML AMPUL.NEB INHALE (12:37)
[2021-12-22 12:52] LABS: COVID-19 Test Negative (Negative)
[2021-12-22 13:10] LABS: IDNOW Serial# 16C4AD1C; Influenza A Negative (Negative); Influenza B2 Negative (Negative)
[2021-12-22 13:37] VITALS: BP 107/82; PULSE 85; RESP 18; O2SAT 96
== END 2021-12-22 13:42 | disposition home or self-care (01) ==
PROVIDERS: Emergency Provider Emergency Medicine; PCP Internal Medicine
DX: J45.909 Unspecified asthma, uncomplicated (principal); R06.02 Shortness of breath; Z79.899 Other long term (current) drug therapy; Z20.822 Contact with and (suspected) exposure to COVID-19
CPT/HCPCS: 71045; 87502; 87635; 96372; 99282; 99284; J1100

== ENCOUNTER 2021-12-24 09:47 | Inpatient (IN) | payer MEDICAID, SELFPAY ==
[2021-12-24] VITALS (9 sets, daily range): BP systolic 121–130; BP diastolic 61–79; PULSE 88–131; RESP 20–24; TEMP 36.4–37.1; O2SAT 96–99; BMI 26.5
--- NOTE | ~2021-12-24 | XR_ITS ---
EXAMINATION: XR CHEST CLINICAL INFORMATION: Cough, shortness of breath and wheezing. COMPARISON: 12/22/2021 TECHNIQUE: 2 views of the chest were obtained. FINDINGS: Lungs are well-inflated and clear. Trachea is midline in position. No interstitial disease, consolidation or mass. No pleural effusion or pneumothorax. Cardiac silhouette and pulmonary vessels are normal in size. The mediastinum and parmjit have normal contour. No acute skeletal findings. The visualized upper abdomen is normal. XR/XR chest 2V IMPRESSION: No acute cardiopulmonary abnormality.
[2021-12-24 10:44] LABS: Influenza A Negative (Negative); Influenza B2 Negative (Negative)
[2021-12-24 11:04] LABS: COVID-19 Test Negative (Negative); IDNOW Serial# 16C4AD1C
--- NOTE | 2021-12-24 11:30 | ED_ITS ---
HPI - Asthma General Chief Complaint: Dyspnea Stated Complaint: Asthma Time Seen by Provider: 12/24/21 10:11 Source: patient Mode of arrival: ambulatory Limitations: no limitations History of Present Illness HPI Narrative: 46-year-old female with a past medical history of asthma, seasonal allergies, fibromyalgia and recurrent UTIs who was recently seen here on 12/22/2021 for allergies/asthma exacerbations sent home with prednisone taper taking as prescribed presenting to the ED with complaints of productive cough with green/blood streaked sputum with associated chest tightness/pain/wheezing/shortness of breath worse since last night after she visited her friend's house to has a whole bunch a CT. She reports that she is currently still taking the prednisone taper. She is still using albuterol inhalers at home and her nebulizers although no symptomatic relief. She reports that she has never been intubated for her asthma although she has been hospitalized in the past. She denies any measured fevers, dizziness, headaches, loss of taste or smell, nasal congestion/rhinorrhea, dyspnea on exertion, ortho pnea, palpitations, paresthesias, nausea/vomiting/diarrhea constipation, abdominal pain, back pain, lower extremity edema or calf tenderness, recent travel or sick contacts or any other symptoms complaints or concerns at this time. MD complaint: asthma attack , shortness of breath and wheezing Onset (ago): week(s) (Since last night) Severity: severe and worse than usual Context: pet exposure Associated symptoms: productive cough and chest pain Asthma History: childhood onset, history of frequent attacks and history of prior ED visit Treatments Prior to Arrival: inhaled bronchodilator Related Data Current Asthma Therapy: inhaled bronchodilator Home Medications Medication Instructions Recorded Confirmed albuterol sulfate 2.5 mg/0.5 mL 5 mg INHALATION QID 05/17/20 12/24/21 solution for nebulization cetirizine 10 mg tablet (All Day 10 mg PO DAILY 05/17/20 12/24/21 Allergy (cetirizine)) montelukast 10 mg tablet 10 mg PO DAILY 05/17/20 12/24/21 (Singulair) omeprazole 40 mg capsule,delayed 40 mg PO BID 05/24/21 12/24/21 release oxycodone 5 mg capsule 5 mg PO Q12H PRN 05/24/21 12/24/21 blood sugar diagnostic (Servando #10 ea 07/02/21 07/02/21 Lite Strips) lancets 33 gauge (TRUEplus Lancets) #100 ea 07/02/21 07/02/21 albuterol sulfate 90 mcg/actuation 2 puff PO Q4-6H PRN 12/24/21 12/24/21 aerosol inhaler (ProAir HFA) Previous Rx's Medication Instructions Recorded ascorbic acid (vitamin C) 1,000 mg 1 g PO DAILY 90 Days #90 tab 07/02/21 tablet cranberry 400 mg capsule 400 mg PO DAILY 30 Days #30 cap 07/02/21 loratadine 10 mg tablet (Allergy 10 mg PO DAILY #30 tab 12/22/21 Relief (loratadine)) oxymetazoline 0.05 % nasal mist 2 spray INTRANASAL Q12H PRN 3 Days 12/22/21 (Afrin (oxymetazoline)) #15 ml Allergies Allergy/AdvReac Type Severity Reaction Status Date / Time levofloxacin [From Levaquin] Allergy Intermediate INTERACTED Verified 10/15/21 13:13 W/ANTI DEPRESSANT morphine [MORPHINE] Allergy Intermediate ITCHING, Verified 10/15/21 13:13 HIVES trazodone [TRAZODONE] Allergy Mild TACHYCARDIA Verified 10/15/21 13:13 amitriptyline Allergy Unknown Unknown Verified 10/15/21 13:13 citalopram Allergy Unknown Unknown Verified 10/15/21 13:13 escitalopram Allergy Unknown Unknown Verified 10/15/21 13:13 ibuprofen Allergy Unknown Unknown Verified 10/15/21 13:13 ketorolac Allergy Unknown Unknown Verified 10/15/21 13:13 sertraline Allergy Unknown Unknown Verified 10/15/21 13:13 Sulfa (Sulfonamide Allergy Unknown Unknown Verified 10/15/21 13:13 Antibiotics) topiramate Allergy Unknown Unknown Verified 10/15/21 13:13 trimethoprim Allergy Unknown Unknown Verified 10/15/21 13:13 zolpidem Allergy Unknown Unknown Verified 10/15/21 13:13 NSAIDS (Non-Steroidal AdvReac Severe HYPEREMESIS Verified 10/15/21 13:13 Anti-Inflamma [NSAIDS (NON-STEROIDAL ANTI-INFLAMMA] From Celexa Allergy Intermediate INTERACTS Uncoded 07/09/21 14:32 W/LEVAQUIN ANTIDEPRESENT Allergy Unknown Unknown Uncoded 07/09/21 14:32 Sulfamethoxazole Allergy Unknown Unknown Uncoded 07/09/21 14:32 toradol Allergy Unknown Unknown Uncoded 07/09/21 14:32 From Ambien AdvReac Severe TACHYCARDIA Uncoded 07/09/21 14:32 From Ultram AdvReac Severe TACHYCARDIA Uncoded 07/09/21 14:32 From ZOLOFT AdvReac Severe TACHYCARDIA Uncoded 07/09/21 14:32 From TORADOL AdvReac Mild STOMACH Uncoded 07/09/21 14:32 UPSET Review of Systems Review of Systems: Constitutional : denies med noncompliance, no history of PE or DVT, denies recent travel, No Fever, No Chills ENT/Mouth : No Hoarseness, No sore throat, No Rhinorrhea, No Nasal congestion, No Sinus Pressure, No Ear Pain, No stridor, Eyes: No Redness, No Discharge, No Vision Changes Cardiovascular : + Chest Pain, + SOB, No Dyspnea on Exertion, No Edema, no pleurisy, Respiratory : + Cough, + wheezing, + Sputum, no stridor, no hemoptysis, Gastrointestinal : No Nausea, No Vomiting, No Diarrhea, No abdominal Pain Genitourinary : No Dysuria, No Hematuria Musculoskeletal : No joint pain/swelling, No Myalgias Extremities: no extremity swelling /pain Skin : No rash, no itching, no swelling Neuro : No Weakness, No Numbness, No Headache, No Dizziness, No Paresthesias Psych : No anxiety, depression Heme/Lymph: No Bruising, No Bleeding Endocrine : No Polyuria, No Polydipsia Yes all other systems are reviewed and are negative PMFSH Past Medical History Medical History (Updated 12/24/21 @ 14:29 by Gino Ennis MD) Adhesive capsulitis of right shoulder Asthma Fibromyalgia Hepatic steatosis Migraines Recurrent UTI Unspecified internal derangement of unspecified knee Surgical History History of left oophorectomy History of partial hysterectomy Previous section Family History Family History Father No problems noted. Mother No problems noted. 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 Blood pre ssure normal. Heart rate 102. Respiration rate 24. Temperature normal. Oxygen saturation normal. Appearance: Alert. Oriented X3. In acute respiratory distress. Head: Normal external exam. Normocephalic. Atraumatic. Eyes: PERRLA. EOMI. Conjunctiva and sclera normal. Eyelids normal. ENT: EAC normal. TM's Normal. Pharynx normal. Uvula midline. Moist mucous membranes. No lesions/ulcerations or masses noted on the tongue. Normal voice. No trismus noted. No drooling noted. No muffled voice noted. Neck: Normal inspection. Neck supple. FROM. No adenopathy. Thyroid Normal. No tracheal deviation noted. No crepitus is noted. No meningeal signs. No neck mass noted. No signs of trauma noted. CVS: Normal heart rate and rhythm. Heart sound normal. Pulses normal throughout. No murmurs/rales/gallops. Respiratory: In acute respiratory distress with decreased breath sounds and inspiratory and expiratory wheezing throughout with tracheal tugging and accessory muscle usage noted. Patient reports pain with deep inspiration. No rales/rhonchi noted. Chest is nontender. No crepitus is noted. No signs of trauma are noted. Abdomen: Soft and nontender. Bowel sounds normal in all 4 quadrants. No distention noted. No organomegaly noted. No visible injury noted. Back: Full range of motion noted. Skin: Skin warm and dry. Normal skin color. Normal skin turgor. No rashes/lesions/lacerations noted. Extremities: No lower extremity edema. No calf tenderness is noted. Extremities exhibit normal range of motion and nontender. Neuro: Oriented X 3. No motor deficit. No sensory deficit. Reflexes normal. Normal steady gait. No focal neuro deficits noted. CN's II-XII intact bilaterally? Vascular: + radial pulses/+ 2 distal pedal pulses/+2 dorsalis pedis b/l. Normal cap refill. No cyanosis noted to upper extremity nails and lower extremity toes nails. Course Course Course Narrative: 11:30am - 46-year-old female with a past medical history of asthma, seasonal allergies, fibromyalgia and recurrent UTIs who was recently seen here on 12/22/2021 for allergies/asthma exacerbations sent home with prednisone taper taking as prescribed presenting to the ED with complaints of productive cough with green/blood streaked sputum with associated chest t ightness/pain/wheezing/shortness of breath worse since last night after she visited her friend's house to has a whole bunch a CT. She reports that she is currently still taking the prednisone taper. She is still using albuterol inhalers at home and her nebulizers although no symptomatic relief. She reports that she has never been intubated for her asthma although she has been hospitalized in the past. Plan: Labs, blood cultures, lactic acid, chest x-ray. Provide a breathing treatment, 125 mg of IV Solu-Medrol, 2 g of magnesium and 10 mL of Robitussin with codeine and re-evaluate Reevaluation(s) Reevaluation #1: - patient with an elevated white blood cell count at 15,000. Random glucose 119. Lactic acid 2.5. ALT 72. Otherwise all other labs are within normal limits. - chest x-ray within normal limits no evidence of pneumonia or any other acute processes noted. - patient negative for COVID. - patient's lactic acid is most likely related to her taking breathing treatments at home which she reports she was doing every 4 hours at home. Not sepsis. - although will give a L of IV fluids and 1 g of Rocephin. - plan will be to admit for asthma exacerbation. Patient understands agrees with this plan. Time: 13:50 [facility] - Asthma Medical Records Attestation: I reviewed the patient's medical records. Lab Data Attestation: I reviewed the patient's lab results. Result diagrams: 12/24/21 12:07 12/24/21 12:07 Labs: Lab Results 12/24/21 12/24/21 12/24/21 Range/Units 10:13 10:13 12:05 WBC (4.8-10.8) X10*3/uL RBC (4.20-5.50) X10*6/uL Hgb (12.0-16.0) g/dl Hct (37.0-47.0) % MCV (80.0-98.0) fL MCH (27.0-33.0) pg MCHC (31.0-35.0) g/dl RDW (11.0-16.0) % Plt Count (160-400) X10*3/uL MPV (9.4-12.3) fL Immature Gran % (Auto) (0.0-0.4) % Neut % (Auto) (45-73) % Lymph % (Auto) (20-40) % [place] % (Auto) (2-11) % Eos % (Auto) (0-4) % Baso % (Auto) (0-2) % Lymph # (Auto) (1.2-4.9) X10*3/uL [place] # (Auto) (0.1-1.2) X10*3/uL Eos # (Auto) (0.0-0.4) X10*3/uL Baso # (Auto) (0.0-0.2) X10*3/uL Abs Immat Gran (auto) (0.00-0.03) X10*3/uL Absolute Neuts (auto) (2.0-8.3) x10*3/uL Absolute Nucleated RBC (0.0-0.012) X10*3/uL Nucleated RBC % (auto) (0.0-0.2) /100WBC Hold Purple Top PT (9.9-13.0) SEC INR (0.9-1.1) Sodium (135-145) mmol/L Potassium (3.3-5.1) mmol/L Chloride (96-108) mmol/L Carbon Dioxide (22-29) mmol/L Anion Gap (12-20) BUN (9-16) mg/dL Creatinine (0.5-1.4) mg/dL Estim Creat Clear Calc Estimated GFR Random Glucose (60-115) mg/dL Lactic Acid 2.5 H* (0.5-2.0) mmol/L Calcium (8.4-10.2) mg/dL Magnesium (1.6-2.6) mg/dL Total Bilirubin (0.0-1.0) mg/dL AST (5-31) U/L ALT (0-31) U/L Alkaline Phosphatase (39-117) U/L Total Protein (6.5-8.0) g/dL Albumin (3.5-5.0) g/dL COVID-19 (ANNY) Negative (Negative) COVID-19 Clin Com See Note Influenza Type A (NORMA) Negative (Negative) Influenza Type B (NORMA) Negative (Negative) Influenza A & B Note See Note 12/24/21 12/24/21 12/24/21 Range/Units 12:07 12:07 12:07 WBC 15.7 H (4.8-10.8) X10*3/uL RBC 4.53 (4.20-5.50) X10*6/uL Hgb 12.1 (12.0-16.0) g/dl Hct 37.0 (37.0-47.0) % MCV 81.7 (80.0-98.0) fL MCH 26.7 L (27.0-33.0) pg MCHC 32.7 (31.0-35.0) g/dl RDW 15.9 (11.0-16.0) % Plt Count 395 (160-400) X10*3/uL MPV 9.2 L (9.4-12.3) fL Immature Gran % (Auto) 0.6 H (0.0-0.4) % Neut % (Auto) 82.6 H (45-73) % Lymph % (Auto) 13.3 L (20-40) % [place] % (Auto) 3.4 (2-11) % Eos % (Auto) 0.0 (0-4) % Baso % (Auto) 0.1 (0-2) % Lymph # (Auto) 2.1 (1.2-4.9) X10*3/uL [place] # (Auto) 0.5 (0.1-1.2) X10*3/uL Eos # (Auto) 0.0 (0.0-0.4) X10*3/uL Baso # (Auto) 0.0 (0.0-0.2) X10*3/uL Abs Immat Gran (auto) 0.09 H (0.00-0.03) X10*3/uL Absolute Neuts (auto) 13.0 H (2.0-8.3) x10*3/uL Absolute Nucleated RBC 0.000 (0.0-0.012) X10*3/uL Nucleated RBC % (auto) 0.0 (0.0-0.2) /100WBC Hold Purple Top SEE NOTE PT 12.6 (9.9-13.0) SEC INR 1.1 (0.9-1.1) Sodium (135-145) mmol/L Potassium (3.3-5.1) mmol/L Chloride (96-108) mmol/L Carbon Dioxide (22-29) mmol/L Anion Gap (12-20) BUN (9-16) mg/dL Creatinine (0.5-1.4) mg/dL Estim Creat Clear Calc Estimated GFR Random Glucose (60-115) mg/dL Lactic Acid (0.5-2.0) mmol/L Calcium (8.4-10.2) mg/dL Magnesium (1.6-2.6) mg/dL Total Bilirubin (0.0-1.0) mg/dL AST (5-31) U/L ALT (0-31) U/L Alkaline Phosphatase (39-117) U/L Total Protein (6.5-8.0) g/dL Albumin (3.5-5.0) g/dL COVID-19 (ANNY) (Negative) COVID-19 Clin Com Influenza Type A (NORMA) (Negative) Influenza Type B (NORMA) (Negative) Influenza A & B Note 12/24/21 Range/Units 12:07 WBC (4.8-10.8) X10*3/uL RBC (4.20-5.50) X10*6/uL Hgb (12.0-16.0) g/dl Hct (37.0-47.0) % MCV (80.0-98.0) fL MCH (27.0-33.0) pg MCHC (31.0-35.0) g/dl RDW (11.0-16.0) % Plt Count (160-400) X10*3/uL MPV (9.4-12.3) fL Immature Gran % (Auto) (0.0-0.4) % Neut % (Auto) (45-73) % Lymph % (Auto) (20-40) % [place] % (Auto) (2-11) % Eos % (Auto) (0-4) % Baso % (Auto) (0-2) % Lymph # (Auto) (1.2-4.9) X10*3/uL [place] # (Auto) (0.1-1.2) X10*3/uL Eos # (Auto) (0.0-0.4) X10*3/uL Baso # (Auto) (0.0-0.2) X10*3/uL Abs Immat Gran (auto) (0.00-0.03) X10*3/uL Absolute Neuts (auto) (2.0-8.3) x10*3/uL Absolute Nucleated RBC (0.0-0.012) X10*3/uL Nucleated RBC % (auto) (0.0-0.2) /100WBC Hold Purple Top PT (9.9-13.0) SEC INR (0.9-1.1) Sodium 139 (135-145) mmol/L Potassium 3.6 (3.3-5.1) mmol/L Chloride 105 (96-108) mmol/L Carbon Dioxide 23 (22-29) mmol/L Anion Gap 15 (12-20) BUN 11 (9-16) mg/dL Creatinine 0.82 (0.5-1.4) mg/dL Estim Creat Clear Calc 80.2 Estimated GFR > 60 Random Glucose 119 H (60-115) mg/dL Lactic Acid (0.5-2.0) mmol/L Calcium 9.7 D (8.4-10.2) mg/dL Magnesium 2.1 (1.6-2.6) mg/dL Total Bilirubin 0.3 (0.0-1.0) mg/dL AST 21 (5-31) U/L ALT 72 H (0-31) U/L Alkaline Phosphatase 103 D (39-117) U/L Total Protein 7.7 (6.5-8.0) g/dL Albumin 4.2 (3.5-5.0) g/dL COVID-19 (ANNY) (Negative) COVID-19 Clin Com Influenza Type A (NORMA) (Negative) Influenza Type B (NORMA) (Negative) Influenza A & B Note Imaging Data Chest x-ray: Attestation: I personally reviewed and interpreted this imaging study as follows: Radiologist's impression: FINDINGS: Lungs are well-inflated and clear. Trachea is midline in position. No interstitial disease, consolidation or mass. No pleural effusion or pneumothorax.? Cardiac silhouette and pulmonary vessels are normal in size. The mediastinum and parmjit have normal contour. No acute skeletal findings. The visualized upper abdomen is normal. XR/XR chest 2V IMPRESSION: No acute cardiopulmonary abnormality. Critical Care Time Critical Care Time Critical Care Time: Yes Total Critical Care Time: 60 Attestation: I personally attest to this time spent taking care of the patient Discharge Plan Discharge Clinical Impression: Asthma with exacerbation Patient Disposition: Admitted As Inpatient
[2021-12-24] MEDS: Albuterol Sulfate (0.083%) 2.5 MG/3 ML VIAL.NEB 10 MG INHALE ×2 (11:46→14:08)
[2021-12-24] MEDS: Magnesium Sulfate/H2O 2 GM/50 ML PIGGYBACK IV (12:05)
[2021-12-24] MEDS: guaiFEN/Codeine SF 200/20/10ML 10 ML LIQUID PO (12:06)
[2021-12-24] MEDS: methylPREDNISolone Sod Succ 125 MG/2 ML VIAL IVPUSH (12:06)
[2021-12-24 12:11] LABS: MANUAL DIFF FLAG NO
[2021-12-24 12:12] LABS: Basophils Percent Auto 0.1 % (0-2); Hemoglobin 12.1 g/dl (12.0-16.0); Imm Gran Abs Auto 0.09 X10*3/uL (0.00-0.03); Imm Gran Pct Auto 0.6 % (0.0-0.4); Lymphocytes Absolute Auto 2.1 X10*3/uL (1.2-4.9); Lymphocytes Percent Auto 13.3 % (20-40); Mean Corpuscular HGB Conc 32.7 g/dl (31.0-35.0); Mean Corpuscular Hemoglobin 26.7 pg (27.0-33.0); Mean Corpuscular Volume 81.7 fL (80.0-98.0); Mean Platelet Volume 9.2 fL (9.4-12.3); Monocytes Absolute Auto 0.5 X10*3/uL (0.1-1.2); Monocytes Percent Auto 3.4 % (2-11); Neutrophils Percent Auto 82.6 % (45-73); Platelet Count 395 X10*3/uL (160-400); Red Blood Count 4.53 X10*6/uL (4.20-5.50); Red Cell Distribution Width 15.9 % (11.0-16.0); White Blood Count 15.7 X10*3/uL (4.8-10.8)
[2021-12-24 12:20] LABS: INTERNATIONAL NORM RATIO 1.1 (0.9-1.1); Prothrombin Time 12.6 SEC (9.9-13.0)
[2021-12-24 12:34] LABS: Alanine Aminotransferase 72 U/L (0-31); Albumin Level 4.2 g/dL (3.5-5.0); Alkaline Phosphatase 103 U/L (39-117); Anion Gap 15 (12-20); Aspartate Amino Transferase 21 U/L (5-31); Bilirubin Total 0.3 mg/dL (0.0-1.0); Blood Urea Nitrogen 11 mg/dL (9-16); Calcium 9.7 mg/dL (8.4-10.2); Carbon Dioxide 23 mmol/L (22-29); Chloride 105 mmol/L (96-108); Creatinine Clr Calc Pharmacy 80.2; Estimated Glomerular Filt Rate > 60; Glucose Random 119 mg/dL (60-115); Magnesium 2.1 mg/dL (1.6-2.6); Potassium 3.6 mmol/L (3.3-5.1); Sodium 139 mmol/L (135-145); Total Protein 7.7 g/dL (6.5-8.0)
[2021-12-24 12:47] LABS: Lactic Acid 2.5 mmol/L (0.5-2.0)
[2021-12-24 14:09] LABS: Reflex Lactate? Lactic Acid Added
[2021-12-24] MEDS: cefTRIAXone sodium 1 GM in 0.9 % Sodium Chloride 50 ML IV (14:24)
[2021-12-24] MEDS: Acetaminophen 325 MG TABLET 975 MG PO (14:24)
--- NOTE | 2021-12-24 14:26 | PM.IMHP ---
History of Present Illness Date of Service: 12/24/21 Chief Complaint: sob 46F presented with sob. Patient states that she has been feeling short of breath for about 1 week. She has a history of mild intermittent asthma and has not had an exacerbation in years, she does not usually use her rescue inhaler. For the past week she has been feeling shortness of breath, wheezy, productive cough, chills, denies fevers denies sick contacts. Patient was seen in the ED 2 days prior to presentation, was started on prednisone and initially had some improvement. On day prior to presentation she went to a friend's has with there was a Cat, patient has allergy to cats, after that she started feeling much more short of breath. In ED patient was given steroids and bronchodilators, she had some improvement but is still in respiratory distress. Chest x-ray negative. Review of Systems Review of Systems: Constitutional: Denies fever, +Chills Eyes: denies blurry vision ENT: denies sore throat CVS: denies chest pain Respiratory: dyspnea GI: no abdominal pain : denies dysuria MSK: denies neck pain Skin: denies rash Neuro: denies specific motor weakness Psych: denies suicidal ideation Endocrine: denies heat/cold intolerance Hematologic: denies easy bleeding Allergy: denies hives COUNT INCLUDES THE [facility] Medical History (Updated 12/24/21 @ 14:29 by Gino Ennis MD) Adhesive capsulitis of right shoulder Asthma Fibromyalgia Hepatic steatosis Migraines Recurrent UTI Unspecified internal derangement of unspecified knee Family History Father No problems noted. Mother No problems noted. 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 Allergies Allergy/AdvReac Type Severity Reaction Status Date / Time levofloxacin [From Levaquin] Allergy Intermediate INTERACTED Verified 10/15/21 13:13 W/ANTI DEPRESSANT morphine [MORPHINE] Allergy Intermediate ITCHING, Verified 10/15/21 13:13 HIVES trazodone [TRAZODONE] Allergy Mild TACHYCARDIA Verified 10/15/21 13:13 amitriptyline Allergy Unknown Unknown Verified 10/15/21 13:13 citalopram Allergy Unknown Unknown Verified 10/15/21 13:13 escitalopram Allergy Unknown Unknown Verified 10/15/21 13:13 ibuprofen Allergy Unknown Unknown Verified 10/15/21 13:13 ketorolac Allergy Unknown Unknown Verified 10/15/21 13:13 sertraline Allergy Unknown Unknown Verified 10/15/21 13:13 Sulfa (Sulfonamide Allergy Unknown Unknown Verified 10/15/21 13:13 Antibiotics) topiramate Allergy Unknown Unknown Verified 10/15/21 13:13 trimethoprim Allergy Unknown Unknown Verified 10/15/21 13:13 zolpidem Allergy Unknown Unknown Verified 10/15/21 13:13 NSAIDS (Non-Steroidal AdvReac Severe HYPEREMESIS Verified 10/15/21 13:13 Anti-Inflamma [NSAIDS (NON-STEROIDAL ANTI-INFLAMMA] From Celexa Allergy Intermediate INTERACTS Uncoded 07/09/21 14:32 W/LEVAQUIN ANTIDEPRESENT Allergy Unknown Unknown Uncoded 07/09/21 14:32 Sulfamethoxazole Allergy Unknown Unknown Uncoded 07/09/21 14:32 toradol Allergy Unknown Unknown Uncoded 07/09/21 14:32 From Ambien AdvReac Severe TACHYCARDIA Uncoded 07/09/21 14:32 From Ultram AdvReac Severe TACHYCARDIA Uncoded 07/09/21 14:32 From ZOLOFT AdvReac Severe TACHYCARDIA Uncoded 07/09/21 14:32 From TORADOL AdvReac Mild STOMACH Uncoded 07/09/21 14:32 UPSET Active Medications: Current Medications Albuterol/Ipratropium (Albuterol/Iprat 2.5/0.5mg 3 Ml Ampul.Neb) 3 ml INHALE RQ4H WHILE AWAKE [facility] Sodium Chloride (Ns) 1,000 mls @ 999 mls/hr IVCONT .Q1H1M [facility] Stop: 12/24/21 15:00 Methylprednisolone Sodium Succinate (Methylprednisolone Sod Succ 125 Mg/2 Ml Vial) 60 mg IVPUSH Q12H [facility] Pharmacy Consult (Consult Rx Perform Med Rec) 1 each MISCELLANE ONCE PRN PRN Reason: Consult order Home Medications Medication Instructions Recorded Confirmed Last Taken Type albuterol sulfate 2.5 mg/0.5 mL 5 mg INHALATION QID 05/17/20 07/02/21 Unknown History solution for nebulization cetirizine 10 mg tablet (All Day 10 mg PO DAILY 05/17/20 07/02/21 Unknown History Allergy (cetirizine)) montelukast 10 mg tablet 10 mg PO DAILY 05/17/20 07/02/21 Unknown History (Singulair) albuterol sulfate 2.5 mg INHALATION TID PRN 05/24/21 07/02/21 Unknown History omeprazole 40 mg capsule,delayed 40 mg PO BID 05/24/21 07/02/21 Unknown History release oxycodone 5 mg capsule 5 mg PO Q12H PRN 05/24/21 07/02/21 Unknown History blood sugar diagnostic (FreeStyle #10 ea 07/02/21 07/02/21 Unknown History Lite Strips) lancets 33 gauge (TRUEplus Lancets) #100 ea 07/02/21 07/02/21 Unknown History Physical Exam Vital Signs and Narrative: Vital Signs: Last Vital Signs Temp 97.6 F 12/24/21 10:06 Pulse 97 12/24/21 14:09 Resp 22 H 12/24/21 14:09 BP 130/73 12/24/21 10:06 Pulse Ox 98 12/24/21 10:06 BMI result Body Mass Index 26.5 General: in respiratory distress HEENT: atraumatic Neck: normal to visual inspection CVS: S1, S2, Rapid Resp: wheezes bilateral, + accessory muscles Chest: non tender GI: soft, non tender, non distended : no CVA tenderness Skin: no rashes Extremities: no edema Neuro: Oriented X3, grossly intact Psych: cooperative Results Labs CBC and Chem 7: 12/24/21 12:07 12/24/21 12:07 Labs: Laboratory Results - last 24 hr 12/24/21 12/24/21 12/24/21 10:13 10:13 12:05 MCV MCH MCHC RDW Plt Count MPV Immature Gran % (Auto) Neut % (Auto) Lymph % (Auto) [place] % (Auto) Eos % (Auto) Baso % (Auto) Lymph # (Auto) [place] # (Auto) Eos # (Auto) Baso # (Auto) Abs Immat Gran (auto) Absolute Neuts (auto) Absolute Nucleated RBC Nucleated RBC % (auto) Hold Purple Top PT INR Anion Gap Estim Creat Clear Calc Estimated GFR Random Glucose Lactic Acid 2.5 H* Calcium Magnesium Total Bilirubin AST ALT Alkaline Phosphatase Total Protein Albumin COVID-19 (ANNY) Negative COVID-19 Clin Com See Note Influenza Type A (NORMA) Negative Influenza Type B (NORMA) Negative Influenza A & B Note See Note 12/24/21 12/24/21 12/24/21 12:07 12:07 12:07 MCV 81.7 MCH 26.7 L MCHC 32.7 RDW 15.9 Plt Count 395 MPV 9.2 L Immature Gran % (Auto) 0.6 H Neut % (Auto) 82.6 H Lymph % (Auto) 13.3 L [place] % (Auto) 3.4 Eos % (Auto) 0.0 Baso % (Auto) 0.1 Lymph # (Auto) 2.1 [place] # (Auto) 0.5 Eos # (Auto) 0.0 Baso # (Auto) 0.0 Abs Immat Gran (auto) 0.09 H Absolute Neuts (auto) 13.0 H Absolute Nucleated RBC 0.000 Nucleated RBC % (auto) 0.0 Hold Purple Top SEE NOTE PT 12.6 INR 1.1 Anion Gap Estim Creat Clear Calc Estimated GFR Random Glucose Lactic Acid Calcium Magnesium Total Bilirubin AST ALT Alkaline Phosphatase Total Protein Albumin COVID-19 (ANNY) COVID-19 [facility] Com Influenza Type A (NORMA) Influenza Type B (NORMA) Influenza A & B Note 12/24/21 12:07 MCV MCH MCHC RDW Plt Count MPV Immature Gran % (Auto) Neut % (Auto) Lymph % (Auto) [place] % (Auto) Eos % (Auto) Baso % (Auto) Lymph # (Auto) [place] # (Auto) Eos # (Auto) Baso # (Auto) Abs Immat Gran (auto) Absolute Neuts (auto) Absolute Nucleated RBC Nucleated RBC % (auto) Hold Purple Top PT INR Anion Gap 15 Estim Creat Clear Calc 80.2 Estimated GFR > 60 Random Glucose 119 H Lactic Acid Calcium 9.7 D Magnesium 2.1 Total Bilirubin 0.3 AST 21 ALT 72 H Alkaline Phosphatase 103 D Total Protein 7.7 Albumin 4.2 COVID-19 (ANNY) COVID-19 Clin Com Influenza Type A (NORMA) Influenza Type B (NORMA) Influenza A & B Note Imaging Radiologist's Impressions: Impressions Chest X-Ray 12/24/21 10:21 IMPRESSION: No acute cardiopulmonary abnormality. Assessment and Plan (1) Asthma with exacerbation: Status: Acute Plan 46F presented with sob Mild intermittent asthma with acute decompensation IV Solu-Medrol, bronchodilators, antihistamine Hepatic steatosis Suspect nonalcoholic fatty liver Outpatient follow-up Obesity Weight loss recommended Chronic pain Continue opiates Mood disorder Continue home meds dvt prophylaxis - lovenox Patient in significant respiratory distress with tachypnea and use of accessory muscles, with risk factors of obesity and hepatic steatosis, therefore, likely to require at least 2 midnights in the hospital. Quality Stroke Does the patient have a stroke diagnosis?: No VTE Prior VTE?: No VTE Risk Level:: Medical - moderate - high VTE Device Contraindication: Treatment Not Indicated VTE Drug Contraindication: N/A - Med Ordered
[2021-12-24] MEDS: 0.9 % Sodium Chloride 1,000 ML 999 ML IVCONT ×2 (14:30→15:10)
[2021-12-24 14:44] LABS: ~Lactic Acid-LAB USE ONLY 4.5 mmol/L (0.5-2.0)
[2021-12-24] MEDS: Enoxaparin Sodium 40 MG/0.4 ML SYRINGE SUBCUT (15:19)
[2021-12-24] MEDS: Albuterol/Iprat 2.5/0.5MG 3 ML AMPUL.NEB INHALE ×2 (15:51→20:26)
[2021-12-24 16:27] LABS: Reflex Lactate? 2 Y
[2021-12-24 17:16] LABS: ~Lactic Acid-LAB USE ONLY 7.5 mmol/L (0.5-2.0)
[2021-12-24] MEDS: oxyCODONE HCl Immed Release 5 MG TABLET PO ×2 (17:30→23:51)
[2021-12-24] MEDS: ondansetron HCL 4 MG/2 ML VIAL IVPUSH ×2 (17:30→22:39)
[2021-12-24] MEDS: methylPREDNISolone Sod Succ 125 MG/2 ML VIAL 60 MG IVPUSH (19:29)
[2021-12-24] MEDS: Omeprazole 40 MG CAPSULE.DR PO (19:29)
[2021-12-24] MEDS: 0.9 % Sodium Chloride Flush 3 ML SYRINGE IVFLUSH (19:30)
[2021-12-24 19:46] LABS: ABG Base Excess -4.4 mmol/L; ABG HCO3 17 mmol/L (22-26); ABG pCO2 23 mmHg (32-45); ABG pH 7.47 (7.35-7.45); ABG pO2 104 mmHg (83-108)
[2021-12-24 20:25] LABS: ABG Refer to POC result
[2021-12-24] MEDS: LORazepam 2 MG/ML VIAL 0.5 MG IVPUSH (21:07)
[2021-12-25] VITALS (9 sets, daily range): BP systolic 111–138; BP diastolic 63–78; PULSE 81–98; RESP 18–20; TEMP 36.4–36.9; O2SAT 96–99
[2021-12-25] MEDS: Acetaminophen 325 MG TABLET 650 MG PO (05:11)
[2021-12-25] MEDS: Albuterol/Iprat 2.5/0.5MG 3 ML AMPUL.NEB INHALE ×4 (05:35→20:10)
[2021-12-25 05:38] LABS: Hematocrit 36.9 % (37.0-47.0); Hemoglobin 11.8 g/dl (12.0-16.0); Mean Corpuscular Hemoglobin 26.3 pg (27.0-33.0); Mean Corpuscular Volume 82.2 fL (80.0-98.0); Mean Platelet Volume 9.4 fL (9.4-12.3); Platelet Count 425 X10*3/uL (160-400); Red Blood Count 4.49 X10*6/uL (4.20-5.50); Red Cell Distribution Width 16.3 % (11.0-16.0); White Blood Count 21.4 X10*3/uL (4.8-10.8)
[2021-12-25] MEDS: LORazepam 2 MG/ML VIAL 0.5 MG IVPUSH (05:41)
[2021-12-25 05:53] LABS: Anion Gap 14 (12-20); Blood Urea Nitrogen 10 mg/dL (9-16); Calcium 9.7 mg/dL (8.4-10.2); Carbon Dioxide 23 mmol/L (22-29); Chloride 108 mmol/L (96-108); Creatinine Clr Calc Pharmacy 84.3; Estimated Glomerular Filt Rate > 60; Glucose Fasting 119 mg/dL (60-99); Potassium 4.2 mmol/L (3.3-5.1); Sodium 141 mmol/L (135-145)
[2021-12-25] MEDS: Omeprazole 40 MG CAPSULE.DR PO ×2 (08:51→20:50)
[2021-12-25] MEDS: Ascorbic Acid 500 MG TABLET 1000 MG PO (08:52)
[2021-12-25] MEDS: 0.9 % Sodium Chloride Flush 3 ML SYRINGE IVFLUSH ×3 (08:52→20:51)
[2021-12-25] MEDS: Montelukast Sodium 10 MG TABLET PO (08:52)
[2021-12-25] MEDS: Loratadine 10 MG TABLET PO (08:52)
[2021-12-25] MEDS: methylPREDNISolone Sod Succ 125 MG/2 ML VIAL 60 MG IVPUSH ×2 (08:53→20:50)
[2021-12-25 11:11] LABS: Lactic Acid 1.7 mmol/L (0.5-2.0)
--- NOTE | 2021-12-25 12:07 | HO.PM.IMPN ---
Subjective Subjective Date of Service: 12/25/21 Interval History: C/o wheezing + dyspnea. No fever. Review of Systems Review of Systems: Yes all other systems are reviewed and are negative Physical Exam Vital Signs: Vital Signs: Last Vital Signs Temp 97.5 F 12/25/21 11:56 Pulse 85 12/25/21 11:56 Resp 18 12/25/21 11:56 BP 120/73 12/25/21 11:56 Pulse Ox 97 12/25/21 11:56 BMI result Body Mass Index 26.5 Gen: mild resp distress HEENT: sclera anicteric, moist mucus membranes Neck: supple Lungs: diffuse exp wheezing Heart: regular rate and rhythm, no murmurs Abd: soft, non-tender, non-distended Ext: no edema Skin: warm/well-perfused Neuro: alert and oriented x3, no focal findings Psych: appropriate affect Objective Data Active Medications Acetaminophen (Acetaminophen 325 Mg Tablet) 650 mg PO Q6H PRN PRN Reason: Pain, Mild (Pain Scale 1-3) Last Admin: 12/25/21 05:11 Dose: 650 mg Documented by: SHELLY Albuterol/Ipratropium (Albuterol/Iprat 2.5/0.5mg 3 Ml Ampul.Neb) 3 ml INHALE RQ4H WHILE AWAKE [facility] Last Admin: 12/25/21 10:53 Dose: 3 ml Documented by: LISA Albuterol/Ipratropium (Albuterol/Iprat 2.5/0.5mg 3 Ml Ampul.Neb) 3 ml INHALE RQ4H PRN PRN Reason: Shortness of Breath/Wheezing Last Admin: 12/25/21 05:35 Dose: 3 ml Documented by: HARRISON Ascorbic Acid (Ascorbic Acid 500 Mg Tablet) 1,000 mg PO DAILY [facility] Last Admin: 12/25/21 08:52 Dose: 1,000 mg Documented by: ALICE Enoxaparin Sodium (Enoxaparin Sodium 40 Mg/0.4 Ml Syringe) 40 mg SUBCUT Q24H [facility] Last Admin: 12/24/21 15:19 Dose: 40 mg Documented by: TORRES Hydroxyzine HCl (Hydroxyzine Hcl 25 Mg Tablet) 25 mg PO Q6H PRN PRN Reason: Anxiety Ibuprofen (Ibuprofen 400 Mg Tablet) 400 mg PO Q6H PRN PRN Reason: moderate pain Loratadine (Loratadine 10 Mg Tablet) 10 mg PO DAILY [facility] Last Admin: 12/25/21 08:52 Dose: 10 mg Documented by: ALICE Methylprednisolone Sodium Succinate (Methylprednisolone Sod Succ 125 Mg/2 Ml Vial) 60 mg IVPUSH Q12H [facility] Last Admin: 12/25/21 08:53 Dose: 60 mg Documented by: ALICE Montelukast Sodium (Montelukast Sodium 10 Mg Tablet) 10 mg PO DAILY [facility] Last Admin: 12/25/21 08:52 Dose: 10 mg Documented by: ALICE Omeprazole (Omeprazole 40 Mg Capsule.Dr) 40 mg PO BID [facility] Last Admin: 12/25/21 08:51 Dose: 40 mg Documented by: ALICE Ondansetron HCl (Ondansetron Hcl 4 Mg/2 Ml Vial) 4 mg IVPUSH Q6H PRN PRN Reason: nasuea Last Admin: 12/24/21 22:39 Dose: 4 mg Documented by: SHELLY Oxycodone HCl (Oxycodone Hcl Immed Release 5 Mg Tablet) 5 mg PO Q12H PRN PRN Reason: back pain Last Admin: 12/24/21 23:51 Dose: 5 mg Documented by: SHELLY Pharmacy Consult (Consult Rx Perform Med Rec) 1 each MISCELLANE ONCE PRN PRN Reason: Consult order Sodium Chloride (0.9 % Sodium Chloride Flush 3 Ml Syringe) 3 ml IVFLUSH QSHIFT [facility] Last Admin: 12/25/21 08:52 Dose: 3 ml Documented by: ALICE Labs CBC & Chem 7: 12/25/21 05:16 12/25/21 05:16 Labs: Laboratory Results - last 24 hr 12/24/21 12/24/21 12/24/21 12:05 12:07 12:07 MCV 81.7 MCH 26.7 L MCHC 32.7 RDW 15.9 Plt Count 395 MPV 9.2 L Immature Gran % (Auto) 0.6 H Neut % (Auto) 82.6 H Lymph % (Auto) 13.3 L [place] % (Auto) 3.4 Eos % (Auto) 0.0 Baso % (Auto) 0.1 Lymph # (Auto) 2.1 [place] # (Auto) 0.5 Eos # (Auto) 0.0 Baso # (Auto) 0.0 Abs Immat Gran (auto) 0.09 H Absolute Neuts (auto) 13.0 H Absolute Nucleated RBC 0.000 Nucleated RBC % (auto) 0.0 Hold Purple Top SEE NOTE PT INR O2 Saturation ABG pH at Pt Temp ABG pCO2 at Pt Temp ABG pO2 at Pt Temp ABG HCO3 ABG Base Excess (Actual) Anion Gap Estim Creat Clear Calc Estimated GFR Random Glucose Fasting Glucose Lactic Acid 2.5 H* Lactic Acid F/U @ 2Hr Lactic Acid F/U @ 4Hr Calcium Magnesium Total Bilirubin AST ALT Alkaline Phosphatase Total Protein Albumin 12/24/21 12/24/21 12/24/21 12:07 12:07 14:24 MCV MCH MCHC RDW Plt Count MPV Immature Gran % (Auto) Neut % (Auto) Lymph % (Auto) [place] % (Auto) Eos % (Auto) Baso % (Auto) Lymph # (Auto) [place] # (Auto) Eos # (Auto) Baso # (Auto) Abs Immat Gran (auto) Absolute Neuts (auto) Absolute Nucleated RBC Nucleated RBC % (auto) Hold Purple Top PT 12.6 INR 1.1 O2 Saturation ABG pH at Pt Temp ABG pCO2 at Pt Temp ABG pO2 at Pt Temp ABG HCO3 ABG Base Excess (Actual) Anion Gap 15 Estim Creat Clear Calc 80.2 Estimated GFR > 60 Random Glucose 119 H Fasting Glucose Lactic Acid Lactic Acid F/U @ 2Hr 4.5 H* Lactic Acid F/U @ 4Hr Calcium 9.7 D Magnesium 2.1 Total Bilirubin 0.3 AST 21 ALT 72 H Alkaline Phosphatase 103 D Total Protein 7.7 Albumin 4.2 12/24/21 12/24/21 12/25/21 16:40 19:38 05:16 MCV 82.2 MCH 26.3 L MCHC 32.0 RDW 16.3 H Plt Count 425 H MPV 9.4 Immature Gran % (Auto) Neut % (Auto) Lymph % (Auto) [place] % (Auto) Eos % (Auto) Baso % (Auto) Lymph # (Auto) [place] # (Auto) Eos # (Auto) Baso # (Auto) Abs Immat Gran (auto) Absolute Neuts (auto) Absolute Nucleated RBC 0.000 Nucleated RBC % (auto) 0.0 Hold Purple Top PT INR O2 Saturation 98.0 ABG pH at Pt Temp 7.47 H ABG pCO2 at Pt Temp 23 L ABG pO2 at Pt Temp 104 ABG HCO3 17 L ABG Base Excess (Actual) -4.4 Anion Gap Estim Creat Clear Calc Estimated GFR Random Glucose Fasting Glucose Lactic Acid Lactic Acid F/U @ 2Hr Lactic Acid F/U @ 4Hr 7.5 H* Calcium Magnesium Total Bilirubin AST ALT Alkaline Phosphatase Total Protein Albumin 12/25/21 12/25/21 05:16 10:49 MCV MCH MCHC RDW Plt Count MPV Immature Gran % (Auto) Neut % (Auto) Lymph % (Auto) [place] % (Auto) Eos % (Auto) Baso % (Auto) Lymph # (Auto) [place] # (Auto) Eos # (Auto) Baso # (Auto) Abs Immat Gran (auto) Absolute Neuts (auto) Absolute Nucleated RBC Nucleated RBC % (auto) Hold Purple Top PT INR O2 Saturation ABG pH at Pt Temp ABG pCO2 at Pt Temp ABG pO2 at Pt Temp ABG HCO3 ABG Base Excess (Actual) Anion Gap 14 Estim Creat Clear Calc 84.3 Estimated GFR > 60 Random Glucose Fasting Glucose 119 H Lactic Acid 1.7 Lactic Acid F/U @ 2Hr Lactic Acid F/U @ 4Hr Calcium 9.7 Magnesium Total Bilirubin AST ALT Alkaline Phosphatase Total Protein Albumin Assessment and Plan (1) Asthma with exacerbation: Status: Acute Plan d#2 46yo F with mild intermittent asthma admitted for acute exacerbation # mild intermittent asthma with acute decompensation - continue IV methylprednisolone + inhaled bronchodilators, loratadine, montelukast, add cough syrup # lactic acidosis - due to albuterol, not sepsis; resolved # leukocytosis - steroid effect; no evidence of sepsis # NAFLD # overweight - diet/exercise, outpt f/u # chronic back pain - continue prn oxycodone # VTE ppx - LMWH\ Quality Stroke Does the patient have a stroke diagnosis?: No VTE Prior VTE?: No VTE Risk Level:: Medical - moderate - high VTE Device Contraindication: Treatment Not Indicated VTE Drug Contraindication: N/A - Med Ordered
[2021-12-25] MEDS: guaiFENesin DM 100/10/5 ML 5 ML SYRUP PO ×2 (15:30→20:50)
[2021-12-25] MEDS: Enoxaparin Sodium 40 MG/0.4 ML SYRINGE SUBCUT (15:30)
[2021-12-25] MEDS: hydrOXYzine HCL 25 MG TABLET PO ×2 (15:35→23:07)
[2021-12-25] MEDS: oxyCODONE HCl Immed Release 5 MG TABLET PO ×2 (16:16→23:07)
[2021-12-25] MEDS: Lidocaine 4 % Patch ADH..PATCH 1 PATCH TRANSDERMA (16:16)
[2021-12-25] MEDS: ondansetron HCL 4 MG/2 ML VIAL IVPUSH (17:23)
[2021-12-26] VITALS (11 sets, daily range): BP systolic 106–122; BP diastolic 59–82; PULSE 78–95; RESP 18–20; TEMP 36.4–37.2; O2SAT 95–98
[2021-12-26] MEDS: Albuterol/Iprat 2.5/0.5MG 3 ML AMPUL.NEB INHALE ×6 (01:20→23:11)
[2021-12-26] MEDS: Acetaminophen 325 MG TABLET 650 MG PO ×3 (01:38→20:40)
[2021-12-26] MEDS: guaiFENesin DM 100/10/5 ML 5 ML SYRUP PO ×2 (07:42→19:16)
[2021-12-26] MEDS: ondansetron HCL 4 MG/2 ML VIAL IVPUSH ×2 (07:42→21:25)
[2021-12-26] MEDS: Lidocaine 4 % Patch ADH..PATCH 1 PATCH TRANSDERMA (08:12)
[2021-12-26] MEDS: Ascorbic Acid 500 MG TABLET 1000 MG PO (08:13)
[2021-12-26] MEDS: Loratadine 10 MG TABLET PO (08:13)
[2021-12-26] MEDS: Omeprazole 40 MG CAPSULE.DR PO ×2 (08:13→19:16)
[2021-12-26] MEDS: Montelukast Sodium 10 MG TABLET PO (08:13)
[2021-12-26] MEDS: methylPREDNISolone Sod Succ 125 MG/2 ML VIAL 60 MG IVPUSH ×2 (08:14→19:16)
[2021-12-26] MEDS: 0.9 % Sodium Chloride Flush 3 ML SYRINGE IVFLUSH ×3 (09:46→19:16)
[2021-12-26] MEDS: oxyCODONE HCl Immed Release 5 MG TABLET PO ×2 (10:38→22:56)
--- NOTE | 2021-12-26 12:33 | HO.PM.IMPN ---
Subjective Subjective Date of Service: 12/26/21 Interval History: Still with significant wheezing + dyspnea Review of Systems Review of Systems: Yes all other systems are reviewed and are negative Physical Exam Vital Signs: Vital Signs: Last Vital Signs Temp 97.7 F 12/26/21 11:23 Pulse 87 12/26/21 12:10 Resp 18 12/26/21 12:10 BP 106/59 L 12/26/21 11:23 Pulse Ox 97 12/26/21 11:23 BMI result Body Mass Index 26.5 Gen: NAD HEENT: sclera anicteric, moist mucus membranes Neck: supple Lungs: diffuse exp wheezing Heart: regular rate and rhythm, no murmurs Abd: soft, non-tender, non-distended Ext: no edema Skin: warm/well-perfused Neuro: alert and oriented x3, no focal findings Psych: appropriate affect Objective Data Active Medications Acetaminophen (Acetaminophen 325 Mg Tablet) 650 mg PO Q6H PRN PRN Reason: Pain, Mild (Pain Scale 1-3) Last Admin: 12/26/21 08:10 Dose: 650 mg Documented by: KRISTEL Albuterol/Ipratropium (Albuterol/Iprat 2.5/0.5mg 3 Ml Ampul.Neb) 3 ml INHALE RQ4H WHILE AWAKE [facility] Last Admin: 12/26/21 12:10 Dose: 3 ml Documented by: RENEE Albuterol/Ipratropium (Albuterol/Iprat 2.5/0.5mg 3 Ml Ampul.Neb) 3 ml INHALE RQ4H PRN PRN Reason: Shortness of Breath/Wheezing Last Admin: 12/25/21 05:35 Dose: 3 ml Documented by: HARRISON Ascorbic Acid (Ascorbic Acid 500 Mg Tablet) 1,000 mg PO DAILY [facility] Last Admin: 12/26/21 08:13 Dose: 1,000 mg Documented by: KRISTEL Enoxaparin Sodium (Enoxaparin Sodium 40 Mg/0.4 Ml Syringe) 40 mg SUBCUT Q24H [facility] Last Admin: 12/25/21 15:30 Dose: 40 mg Documented by: ALICE Guaifenesin/Dextromethorphan (Guaifenesin Dm 100/10/5 Ml 5 Ml Syrup) 5 ml PO Q4H PRN PRN Reason: cough Last Admin: 12/26/21 07:42 Dose: 5 ml Documented by: RON Hydroxyzine HCl (Hydroxyzine Hcl 25 Mg Tablet) 25 mg PO Q6H PRN PRN Reason: Anxiety Last Admin: 12/25/21 23:07 Dose: 25 mg Documented by: MALA Ibuprofen (Ibuprofen 400 Mg Tablet) 400 mg PO Q6H PRN PRN Reason: moderate pain Lidocaine (Lidocaine 4 % Patch Adh..Patch) 1 patch TRANSDERMA DAILY [facility]; Protocol Last Admin: 12/26/21 08:12 Dose: 1 patch Documented by: KRISTEL Loratadine (Loratadine 10 Mg Tablet) 10 mg PO DAILY [facility] Last Admin: 12/26/21 08:13 Dose: 10 mg Documented by: KRISTEL Methylprednisolone Sodium Succinate (Methylprednisolone Sod Succ 125 Mg/2 Ml Vial) 60 mg IVPUSH Q12H [facility] Last Admin: 12/26/21 08:14 Dose: 60 mg Documented by: KRISTEL Montelukast Sodium (Montelukast Sodium 10 Mg Tablet) 10 mg PO DAILY [facility] Last Admin: 12/26/21 08:13 Dose: 10 mg Documented by: KRISTEL Omeprazole (Omeprazole 40 Mg Capsule.Dr) 40 mg PO BID [facility] Last Admin: 12/26/21 08:13 Dose: 40 mg Documented by: KRISTEL Ondansetron HCl (Ondansetron Hcl 4 Mg/2 Ml Vial) 4 mg IVPUSH Q6H PRN PRN Reason: nasuea Last Admin: 12/26/21 07:42 Dose: 4 mg Documented by: RON Oxycodone HCl (Oxycodone Hcl Immed Release 5 Mg Tablet) 5 mg PO Q12H PRN PRN Reason: back pain Last Admin: 12/25/21 23:07 Dose: 5 mg Documented by: MALA Pharmacy Consult (Consult Rx Perform Med Rec) 1 each MISCELLANE ONCE PRN PRN Reason: Consult order Sodium Chloride (0.9 % Sodium Chloride Flush 3 Ml Syringe) [facility] Last Admin: 12/26/21 09:46 Dose: 3 ml Documented by: RON Labs CBC & Chem 7: 12/25/21 05:16 12/25/21 05:16 Microbiology Microbiology Results: Microbiology 12/25/21 14:27 Urine Culture - Final Urine clean catch - Clean Catch Midstream No growth. 12/24/21 12:16 Blood Culture - Preliminary Blood - Venous No growth after 24 hours. 12/24/21 12:06 Blood Culture - Preliminary Blood - Venous No growth after 24 hours. Assessment and Plan (1) Asthma with exacerbation: Status: Acute Plan d#3 46yo F with mild intermittent asthma admitted for acute exacerbation # mild intermittent asthma with acute decompensation - continue IV methylprednisolone + inhaled bronchodilators, loratadine, montelukast, guaifenesin/DM # lactic acidosis - due to albuterol, not sepsis; resolved # leukocytosis - steroid effect; no evidence of sepsis # NAFLD # overweight - diet/exercise, outpt f/u # chronic back pain - continue prn oxycodone, add lidocaine patch # VTE ppx - LMWH In my clinical judgment, the patient requires continued hospitalization for the following reasons: severe wheezing, failure of outpt asthma management Quality Stroke Does the patient have a stroke diagnosis?: No VTE Prior VTE?: No VTE Risk Level:: Medical - moderate - high VTE Device Contraindication: Treatment Not Indicated VTE Drug Contraindication: N/A - Med Ordered
--- NOTE | 2021-12-26 14:34 | MHC.CM.PN ---
PATIENT IS FULLY INDEPENDENT SHE RELIES ON INHALERS HAS A NEBULIZER BUT NEEDS THE TUBING FOR IT. SHE REPORTS HAVING IT FOR SO LONG THAT SHE DOES NOT RECALL WHO SUPPLIED IT. SHE IS COVID VACCINATED AND IS ASKING FOR A BOOSTER SHE DID HAVE COVID-19 IN AUGUST 2021. PLAN IS HOME - SELF CARE.
[2021-12-26] MEDS: Enoxaparin Sodium 40 MG/0.4 ML SYRINGE SUBCUT (15:49)
[2021-12-26] MEDS: hydrOXYzine HCL 25 MG TABLET PO ×2 (15:49→22:56)
[2021-12-26 16:50] LABS: Appearance Urine CLEAR; Color Urine YELLOW; Glucose Urine UA NEG (NEG); Leukocyte Esterase Urine TRACE (NEG); Nitrite Urine NEG (NEG); Urine Blood TRACE (NEG); Urine Ketones NEG (NEG); Urine Protein NEG (NEG-TRACE)
[2021-12-26 17:04] LABS: Bacteria Urine TRACE /LPF; RBC Urine 0-2 /HPF (0); Squamous Epithelial Cell Urine TRACE /LPF; WBC Urine 0-2 /HPF (0-4)
[2021-12-26] MEDS: Butalb/Acetamin/Caff 50/325/40 TABLET 1 TAB PO (23:31)
[2021-12-26] MEDS: Prochlorperazine Edisylate 10 MG/2 ML VIAL 5 MG IVPUSH (23:32)
[2021-12-27] VITALS (12 sets, daily range): BP systolic 117–154; BP diastolic 65–87; PULSE 74–123; RESP 16–18; TEMP 36.1–36.6; O2SAT 95–99
--- NOTE | 2021-12-27 03:17 | PC.NURSE ---
Pt had a rough beginning to her night. +SOB, cough, nausea/vomiting, generalized pain and a headache. Resp called for treatments and patient medicated with cough medicine, Tylenol, and Zofran with no effect. Pt became agitated and was yelling and swearing at me. She had an accident in the bed from her coughing and vomiting. Bed was changed and patient took a shower. Atarax and Oxycodone given. Pt calmer and apologized stating she feels horrible and is not getting any better. Headache and N/V still very much present. Dr notified and ordered Fioricet and Phenergan pat with positive results. Patient has been sleeping comfortably. Will continue to monitor. See MAR for times of medication administration and resp treatments.
[2021-12-27] MEDS: ondansetron HCL 4 MG/2 ML VIAL IVPUSH ×3 (05:03→21:28)
[2021-12-27] MEDS: guaiFENesin DM 100/10/5 ML 5 ML SYRUP PO ×2 (07:34→20:44)
[2021-12-27] MEDS: Acetaminophen 325 MG TABLET 650 MG PO ×3 (07:34→21:27)
[2021-12-27] MEDS: 0.9 % Sodium Chloride Flush 3 ML SYRINGE IVFLUSH ×3 (07:35→21:29)
[2021-12-27] MEDS: Albuterol/Iprat 2.5/0.5MG 3 ML AMPUL.NEB INHALE ×5 (08:56→23:38)
[2021-12-27] MEDS: Lidocaine 4 % Patch ADH..PATCH 1 PATCH TRANSDERMA (09:26)
[2021-12-27] MEDS: Montelukast Sodium 10 MG TABLET PO (09:27)
[2021-12-27] MEDS: Loratadine 10 MG TABLET PO (09:27)
[2021-12-27] MEDS: Ascorbic Acid 500 MG TABLET 1000 MG PO (09:27)
[2021-12-27] MEDS: methylPREDNISolone Sod Succ 125 MG/2 ML VIAL 40 MG IVPUSH (09:27)
[2021-12-27] MEDS: Omeprazole 40 MG CAPSULE.DR PO ×2 (09:27→20:44)
[2021-12-27] MEDS: oxyCODONE HCl Immed Release 5 MG TABLET PO ×2 (11:47→23:32)
[2021-12-27] MEDS: polyethylene glycoL 3350 17 GM POWD.PACK PO (11:52)
[2021-12-27] MEDS: SUMAtriptan succinate 50 MG TABLET PO (11:53)
--- NOTE | 2021-12-27 12:44 | MHC.CM.PN ---
PATIENT STILL WHEEZY HOME THURSDAY 12/28 IS ANTICIPATED PLAN.
--- NOTE | 2021-12-27 12:44 | HO.PM.IMPN ---
Subjective Subjective Date of Service: 12/27/21 Interval History: C/o chest tightness and wheezing; very tight. Coughing small amount of sputum C/o L-sided KATZ with N/V [hx migraines] + constipation Review of Systems Review of Systems: Yes all other systems are reviewed and are negative Physical Exam Vital Signs: Vital Signs: Last Vital Signs Temp 97.6 F 12/27/21 12:00 Pulse 89 12/27/21 12:00 Resp 18 12/27/21 12:00 BP 137/81 12/27/21 12:00 Pulse Ox 98 12/27/21 12:00 BMI result Body Mass Index 26.5 Gen: NAD HEENT: sclera anicteric, moist mucus membranes Neck: supple Lungs: poor air entry, high-pitched expiratory wheeze, prolonged expiratory phase Heart: regular rate and rhythm, no murmurs Abd: soft, non-tender, non-distended Ext: no edema Skin: warm/well-perfused Neuro: alert and oriented x3, no focal findings Psych: appropriate affect Objective Data Active Medications Acetaminophen (Acetaminophen 325 Mg Tablet) 650 mg PO Q6H PRN PRN Reason: Pain, Mild (Pain Scale 1-3) Last Admin: 12/27/21 07:34 Dose: 650 mg Documented by: KRISTEL Albuterol/Ipratropium (Albuterol/Iprat 2.5/0.5mg 3 Ml Ampul.Neb) 3 ml INHALE RQ4H WHILE AWAKE [facility] Last Admin: 12/27/21 11:12 Dose: 3 ml Documented by: BETTIE Albuterol/Ipratropium (Albuterol/Iprat 2.5/0.5mg 3 Ml Ampul.Neb) 3 ml INHALE Q2H PRN PRN Reason: Shortness of Breath/Wheezing Ascorbic Acid (Ascorbic Acid 500 Mg Tablet) 1,000 mg PO DAILY [facility] Last Admin: 12/27/21 09:27 Dose: 1,000 mg Documented by: RON Enoxaparin Sodium (Enoxaparin Sodium 40 Mg/0.4 Ml Syringe) 40 mg SUBCUT Q24H [facility] Last Admin: 12/26/21 15:49 Dose: 40 mg Documented by: RON Guaifenesin/Dextromethorphan (Guaifenesin Dm 100/10/5 Ml 5 Ml Syrup) 5 ml PO Q4H PRN PRN Reason: cough Last Admin: 12/27/21 07:34 Dose: 5 ml Documented by: KRISTEL Hydroxyzine HCl (Hydroxyzine Hcl 25 Mg Tablet) 25 mg PO Q6H PRN PRN Reason: Anxiety Last Admin: 12/26/21 22:56 Dose: 25 mg Documented by: MALA Ibuprofen (Ibuprofen 400 Mg Tablet) 400 mg PO Q6H PRN PRN Reason: moderate pain Lidocaine (Lidocaine 4 % Patch Adh..Patch) 1 patch TRANSDERMA DAILY [facility]; Protocol Last Admin: 12/27/21 09:26 Dose: 1 patch Documented by: RON Loratadine (Loratadine 10 Mg Tablet) 10 mg PO DAILY [facility] Last Admin: 12/27/21 09:27 Dose: 10 mg Documented by: RON Methylprednisolone Sodium Succinate (Methylprednisolone Sod Succ 125 Mg/2 Ml Vial) 40 mg IVPUSH DAILY [facility] Last Admin: 12/27/21 09:27 Dose: 40 mg Documented by: RON Montelukast Sodium (Montelukast Sodium 10 Mg Tablet) 10 mg PO DAILY [facility] Last Admin: 12/27/21 09:27 Dose: 10 mg Documented by: RON Omeprazole (Omeprazole 40 Mg Capsule.Dr) 40 mg PO BID [facility] Last Admin: 12/27/21 09:27 Dose: 40 mg Documented by: RON Ondansetron HCl (Ondansetron Hcl 4 Mg/2 Ml Vial) 4 mg IVPUSH Q6H PRN PRN Reason: nasuea Last Admin: 12/27/21 05:03 Dose: 4 mg Documented by: MALA Oxycodone HCl (Oxycodone Hcl Immed Release 5 Mg Tablet) 5 mg PO Q12H PRN PRN Reason: back pain Last Admin: 12/27/21 11:47 Dose: 5 mg Documented by: KRISTEL Pharmacy Consult (Consult Rx Perform Med Rec) 1 each MISCELLANE ONCE PRN PRN Reason: Consult order Polyethylene Glycol (Polyethylene Glycol 3350 17 Gm Powd.Pack) 17 gm PO DAILY [facility] Last Admin: 12/27/21 11:52 Dose: 17 gm Documented by: KRISTEL Sodium Chloride (0.9 % Sodium Chloride Flush 3 Ml Syringe) [facility] Last Admin: 12/27/21 07:35 Dose: 3 ml Documented by: KRISTEL Labs CBC & Chem 7: 12/25/21 05:16 12/25/21 05:16 Labs: Laboratory Results - last 24 hr 12/26/21 16:10 Urine Color YELLOW Urine Appearance CLEAR Urine pH 6.0 Ur Specific [place] 1.010 Urine Protein NEG Urine Glucose (UA) NEG Urine Ketones NEG Urine Blood TRACE Urine Nitrite NEG Ur Leukocyte Esterase TRACE H Urine RBC 0-2 Urine WBC 0-2 Ur Squamous Epith Cells TRACE Urine Bacteria TRACE Microbiology Microbiology Results: Microbiology 12/24/21 12:16 Blood Culture - Preliminary Blood - Venous No growth after 48 hours. 12/24/21 12:06 Blood Culture - Preliminary Blood - Venous No growth after 48 hours. Assessment and Plan (1) Asthma with exacerbation: Status: Acute Plan d#4 46yo F with mild intermittent asthma admitted for acute exacerbation # mild intermittent asthma with acute decompensation - continue IV methylprednisolone + inhaled bronchodilators standing + prn, loratadine, montelukast, guaifenesin/DM # lactic acidosis - due to albuterol, not sepsis; resolved # leukocytosis - steroid effect; no evidence of sepsis # NAFLD # overweight - diet/exercise, outpt f/u # chronic back pain - continue prn oxycodone, added lidocaine patch # migraine KATZ - trial of sumatriptan # constipation - MiraLax # VTE ppx - LMWH In my clinical judgment, the patient requires continued hospitalization for the following reasons: severe wheezing, poor air entry, failure of outpt asthma management Quality Stroke Does the patient have a stroke diagnosis?: No VTE Prior VTE?: No VTE Risk Level:: Medical - moderate - high VTE Device Contraindication: Treatment Not Indicated VTE Drug Contraindication: N/A - Med Ordered
[2021-12-27] MEDS: Enoxaparin Sodium 40 MG/0.4 ML SYRINGE SUBCUT (15:27)
[2021-12-28] VITALS (10 sets, daily range): BP systolic 119–139; BP diastolic 60–86; PULSE 90–118; RESP 16–20; TEMP 36.3–36.8; O2SAT 95–99
[2021-12-28] MEDS: Albuterol/Iprat 2.5/0.5MG 3 ML AMPUL.NEB INHALE ×4 (04:34→20:31)
[2021-12-28] MEDS: hydrOXYzine HCL 25 MG TABLET PO ×2 (04:58→12:14)
[2021-12-28] MEDS: Ascorbic Acid 500 MG TABLET 1000 MG PO (09:27)
[2021-12-28] MEDS: Lidocaine 4 % Patch ADH..PATCH 1 PATCH TRANSDERMA (09:27)
[2021-12-28] MEDS: Loratadine 10 MG TABLET PO (09:27)
[2021-12-28] MEDS: 0.9 % Sodium Chloride Flush 3 ML SYRINGE IVFLUSH ×2 (09:27→16:11)
[2021-12-28] MEDS: Omeprazole 40 MG CAPSULE.DR PO ×2 (09:28→21:00)
[2021-12-28] MEDS: Montelukast Sodium 10 MG TABLET PO (09:28)
[2021-12-28] MEDS: methylPREDNISolone Sod Succ 125 MG/2 ML VIAL 40 MG IVPUSH (09:28)
[2021-12-28] MEDS: polyethylene glycoL 3350 17 GM POWD.PACK PO (09:28)
[2021-12-28] MEDS: ondansetron HCL 4 MG/2 ML VIAL IVPUSH (12:14)
[2021-12-28] MEDS: predniSONE 20 MG TABLET 40 MG PO (12:14)
[2021-12-28] MEDS: oxyCODONE HCl Immed Release 5 MG TABLET PO (13:48)
--- NOTE | 2021-12-28 13:53 | HO.PM.IMPN ---
Subjective Subjective Date of Service: 12/28/21 Interval History: Complaining of cough, chest tightness, shortness of breath after receiving updraft treatment developed palpitation, became dizzy, and now complaining of migraine headache requesting for sumatriptan, no nausea no vomiting, no abdominal pain no fevers, no chills tolerating diet ambulating in room with no difficulty. Review of Systems [employer] headache and dizziness CVS chest tightness and palpitation Respiratory cough and shortness of breath no urinary urgency, no frequency , general no fevers no chills Review of Systems: Yes all other systems are reviewed and are negative Physical Exam Vital Signs: Vital Signs: Last Vital Signs Temp 97.5 F 12/28/21 11:43 Pulse 118 H 12/28/21 11:43 Resp 20 12/28/21 11:43 BP 139/71 12/28/21 11:43 Pulse Ox 99 12/28/21 11:43 BMI result Body Mass Index 26.5 Const: Other: Gen: Talking in full sentences sitting comfortably no acute distress Neck: supple, no JVD Lungs: Clear to auscultation, no wheeze no rhonchi Heart: regular rate and rhythm, no murmurs Abd: soft, non-tender, non-distended Ext: no edema Skin: warm/well-perfused Neuro: alert and oriented x3, no focal findings Psych: appropriate affect ? Objective Data Active Medications Acetaminophen (Acetaminophen 325 Mg Tablet) 650 mg PO Q6H PRN PRN Reason: Pain, Mild (Pain Scale 1-3) Last Admin: 12/27/21 21:27 Dose: 650 mg Documented by: VLAD Albuterol/Ipratropium (Albuterol/Iprat 2.5/0.5mg 3 Ml Ampul.Neb) 3 ml INHALE Q2H PRN PRN Reason: Shortness of Breath/Wheezing Last Admin: 12/28/21 04:34 Dose: 3 ml Documented by: CLIFF Albuterol/Ipratropium (Albuterol/Iprat 2.5/0.5mg 3 Ml Ampul.Neb) 3 ml INHALE RQID [place] Ascorbic Acid (Ascorbic Acid 500 Mg Tablet) 1,000 mg PO DAILY [facility] Last Admin: 12/28/21 09:27 Dose: 1,000 mg Documented by: DIANA Enoxaparin Sodium (Enoxaparin Sodium 40 Mg/0.4 Ml Syringe) 40 mg SUBCUT Q24H [facility] Last Admin: 12/27/21 15:27 Dose: 40 mg Documented by: RON Guaifenesin/Dextromethorphan (Guaifenesin Dm 100/10/5 Ml 5 Ml Syrup) 5 ml PO Q4H PRN PRN Reason: cough Last Admin: 12/27/21 20:44 Dose: 5 ml Documented by: VLAD Hydroxyzine HCl (Hydroxyzine Hcl 25 Mg Tablet) 25 mg PO Q6H PRN PRN Reason: Anxiety Last Admin: 12/28/21 12:14 Dose: 25 mg Documented by: DIANA Ibuprofen (Ibuprofen 400 Mg Tablet) 400 mg PO Q6H PRN PRN Reason: moderate pain Lidocaine (Lidocaine 4 % Patch Adh..Patch) 1 patch TRANSDERMA DAILY [facility]; Protocol Last Admin: 12/28/21 09:27 Dose: 1 patch Documented by: DIANA Loratadine (Loratadine 10 Mg Tablet) 10 mg PO DAILY [facility] Last Admin: 12/28/21 09:27 Dose: 10 mg Documented by: DIANA Montelukast Sodium (Montelukast Sodium 10 Mg Tablet) 10 mg PO DAILY [facility] Last Admin: 12/28/21 09:28 Dose: 10 mg Documented by: DIANA Omeprazole (Omeprazole 40 Mg Capsule.Dr) 40 mg PO BID [facility] Last Admin: 12/28/21 09:28 Dose: 40 mg Documented by: DIANA Ondansetron HCl (Ondansetron Hcl 4 Mg/2 Ml Vial) 4 mg IVPUSH Q6H PRN PRN Reason: nasuea Last Admin: 12/28/21 12:14 Dose: 4 mg Documented by: DIANA Oxycodone HCl (Oxycodone Hcl Immed Release 5 Mg Tablet) 5 mg PO Q12H PRN PRN Reason: back pain Last Admin: 12/28/21 13:48 Dose: 5 mg Documented by: DIANA Pharmacy Consult (Consult Rx Perform Med Rec) 1 each MISCELLANE ONCE PRN PRN Reason: Consult order Polyethylene Glycol (Polyethylene Glycol 3350 17 Gm Powd.Pack) 17 gm PO DAILY [facility] Last Admin: 12/28/21 09:28 Dose: 17 gm Documented by: DIANA Prednisone (Prednisone 20 Mg Tablet) 40 mg PO DAILY [facility] Last Admin: 12/28/21 12:14 Dose: 40 mg Documented by: DIANA Sodium Chloride (0.9 % Sodium Chloride Flush 3 Ml Syringe) 3 ml IVFLUSH QSHIFT [facility] Last Admin: 12/28/21 09:27 Dose: 3 ml Documented by: DIANA Labs CBC & Chem 7: 12/25/21 05:16 12/25/21 05:16 Assessment and Plan (1) Asthma with exacerbation: Status: Acute Plan d#4 46yo F with mild intermittent asthma admitted for acute exacerbation # mild intermittent asthma with acute decompensation No hypoxia As per patient history of allergies to cats Complaining of persistent symptoms of shortness of breath and cough, examination is benign DC IV methylprednisolone transition to by mouth prednisone Change DuoNeb updrafts to q.i.d., continue loratadine, montelukast, guaifenesin/DM Advised to avoid allergens including cat dander, smoke , Heat and cold # chest tightness and palpitation after DuoNeb treatment, will change updraft to q.i.d. lungs clear to auscultation, heart rate gradually improved and chest pain resolved. Follow clinically # lactic acidosis - due to albuterol, not sepsis; resolved # leukocytosis - steroid effect; no evidence of sepsis # NAFLD # overweight - diet/exercise, outpt f/u # chronic back pain - continue prn oxycodone, added lidocaine patch # migraine KATZ - complaining of migraine headache, no associated nausea vomiting no visual symptoms hold sumatriptan due to complain of chest tightness and palpitation # constipation - MiraLax # VTE ppx - LMWH In my clinical judgment, the patient requires continued hospitalization for persistent shortness of breath, chest tightness and cough, with migraine headache and dizziness, and failure of outpt asthma management Quality Stroke Does the patient have a stroke diagnosis?: No VTE Prior VTE?: No VTE Risk Level:: Medical - moderate - high VTE Device Contraindication: Treatment Not Indicated VTE Drug Contraindication: N/A - Med Ordered
[2021-12-28] MEDS: Acetaminophen 325 MG TABLET 650 MG PO ×2 (15:43→22:31)
[2021-12-28] MEDS: Enoxaparin Sodium 40 MG/0.4 ML SYRINGE SUBCUT (15:44)
[2021-12-29] MEDS: oxyCODONE HCl Immed Release 5 MG TABLET PO ×2 (01:51→09:24)
[2021-12-29] MEDS: 0.9 % Sodium Chloride Flush 3 ML SYRINGE IVFLUSH ×2 (01:52→09:08)
[2021-12-29 03:51] VITALS: BP 125/59; PULSE 63; RESP 18; TEMP 36.9; O2SAT 98
[2021-12-29 07:48] VITALS: BP 109/64; PULSE 90; RESP 16; TEMP 36.3; O2SAT 94
[2021-12-29] MEDS: Montelukast Sodium 10 MG TABLET PO (09:03)
[2021-12-29] MEDS: predniSONE 20 MG TABLET 40 MG PO (09:03)
[2021-12-29] MEDS: Omeprazole 40 MG CAPSULE.DR PO (09:03)
[2021-12-29] MEDS: Ascorbic Acid 500 MG TABLET 1000 MG PO (09:03)
[2021-12-29] MEDS: Lidocaine 4 % Patch ADH..PATCH 1 PATCH TRANSDERMA (09:03)
[2021-12-29] MEDS: Loratadine 10 MG TABLET PO (09:03)
--- NOTE | 2021-12-29 09:42 | PM.DS ---
DS: Providers Provider Date of Service: 12/29/21 Date of admission: 12/24/21 14:24 Primary care physician: Adal Alves MD DS: Diagnosis Discharge Diagnosis (1) Asthma with exacerbation: Status: Acute DS: Summary Hospital Course Hospital Course: Chief Complaint: sob 46F presented with sob.? Patient states that she has been feeling short of breath for about 1 week.? She has a history of mild intermittent asthma and has not had an exacerbation in years, she does not usually use her rescue inhaler.? For the past week she has been feeling shortness of breath, wheezy, productive cough, chills, denies fevers denies sick contacts.? Patient was seen in the ED 2 days prior to presentation, was started on prednisone and initially had some improvement.? On day prior to presentation she went to a friend's has with there was a Cat, patient has allergy to cats, after that she started feeling much more short of breath.? In ED patient was given steroids and bronchodilators, she had some improvement but is still in respiratory distress.? Chest x-ray negative. hospital course 46yo F with mild intermittent asthma admitted for acute exacerbation # mild intermittent asthma with acute decompensation, patient admitted to medical floor treated with IV steroids, scheduled and as needed updraft treatment, with Claritin cough medication and Singulair patient responded well to above treatment, likely exacerbation related to environmental allergies patient has been recommended to avoid crowded places secondhand smoke, pollen and Cat dander, since patient is doing well with stable oxygenation she is being discharged home with recommendation to continue home inhalers Claritin and Singulair she has finish 7 day course of prednisone therefore no further steroids are recommended. Patient noted to have lactic acidosis likely due to albuterol and not sepsis that has resolved, leukocytosis likely related to steroid use, chest x-ray showed no acute infiltrate. ? ? # chronic back pain Recommend to continue home medication exercise Time Spent with Patient Time attestation: Total time spent providing and/or coordinating discharge services: Discharge coordination time: Greater than 30 minutes Quality: Safe Use of Opioids Does Pt have an Active Cancer Diagnosis on the Problem List?: No Quality: Stroke Does the patient have a stroke diagnosis?: No Physical Exam Vital Signs: Vital Signs: Last Vital Signs Temp 97.4 F 12/29/21 07:48 Pulse 90 12/29/21 07:48 Resp 16 12/29/21 07:48 BP 109/64 12/29/21 07:48 Pulse Ox 94 12/29/21 07:48 BMI result Body Mass Index 26.5 Const: Other: Gen:? Talking in full sentences sitting comfortably no acute distress Neck: supple, no JVD Lungs:? Clear to auscultation, no wheeze no rhonchi Heart: regular rate and rhythm, no murmurs Abd: soft, non-tender, non-distended Ext: no edema Skin: warm/well-perfused Neuro: alert and oriented x3, no focal findings Psych: appropriate affect DS: Data Data Completed and Pending Labs on day of discharge: Preliminary micro results at discharge 12/24/21 12:16 Blood Culture - Preliminary Blood - Venous No growth after 48 hours. 12/24/21 12:06 Blood Culture - Preliminary Blood - Venous No growth after 48 hours. Discharge Plan Discharge Patient Disposition: Home, Self-Care Discharge Diagnosis: acute asthma exacerbation lactic acidosis Referrals: Adal Alves MD [Primary Care Provider] - 1 Week Discharge Medications: Continued Afrin (oxymetazoline) 0.05 % mist 2 spray intranasal Q12H PRN (Reason: nasal congestion) 3 Days Qty: 15 0RF loratadine [Allergy Relief (loratadine)] 10 mg tablet 10 mg PO DAILY Qty: 30 0RF albuterol sulfate [ProAir HFA] 90 mcg/actuation HFA aerosol inhaler 2 puff PO Q4-6H PRN (Reason: Shortness Of Breath) 0RF montelukast [Singulair] 10 mg tablet 10 mg PO DAILY 0RF albuterol sulfate 2.5 mg/0.5 mL solution for nebulization 5 mg inhalation QID 0RF (DME) lancets [TRUEplus Lancets] 33 gauge misc See Rx Instructions ea Not Applicable DAILY Qty: 100 0RF Rx Instructions: As directed (DME) FreeStyle Lite Strips Strip See Rx Instructions ea Not Applicable DAILY Qty: 10 0RF Rx Instructions: As directed ascorbic acid (vitamin C) 1,000 mg tablet 1 g PO DAILY 90 Days Qty: 90 1RF cranberry 400 mg capsule 400 mg PO DAILY 30 Days Qty: 30 3RF Rx Instructions: administer with a meal oxycodone 5 mg capsule 5 mg PO Q12H PRN (Reason: back pain) 0RF omeprazole 40 mg capsule,delayed release(DR/EC) 40 mg PO BID 0RF Discontinued cetirizine [All Day Allergy (cetirizine)] 10 mg tablet 10 mg PO DAILY 0RF Discharge Orders: Discharge Order (Routine); Ordered 12/29/21 Ordered By: Neisha Galan Diet: advance to usual diet Activity on Discharge: As tolerated Stand Alone Forms: Patient Portal Discharge page Care Plan Goals: acute asthma exacerbation resolved continue taking Claritin and as needed home inhalers finished course of prednisone, avoid allergens Health Concerns: continue home medications as before Plan of Treatment: follow-up with primary care physician in 1 week Assessment: as per discharge summary.
--- NOTE | 2021-12-29 09:57 | MHC.CM.PN ---
PT MEDICALLY CLEARED TO D/C HOME [facility]CARE, PT WILL ARRANGE TRANSPORT
== END 2021-12-29 12:01 | disposition home or self-care (01) | DRG 141 ==
LOC: HO.ED 14:03 → HO.EDOVER 14:28 → HO.S3 17:55
PROVIDERS: Family Medicine; Physician Assistant Medical; Admitting Provider Internal Medicine; Emergency Provider Emergency Medicine; PCP Internal Medicine; Visit Provider Hospitalist
DX: J45.31 Mild persistent asthma with (acute) exacerbation (principal); E87.2 Acidosis; K76.0 Fatty (change of) liver, not elsewhere classified; M79.7 Fibromyalgia; G43.909 Migraine, unspecified, not intractable, without status migrainosus; M54.9 Dorsalgia, unspecified; E66.9 Obesity, unspecified; G89.29 Other chronic pain; K59.00 Constipation, unspecified; Z20.822 Contact with and (suspected) exposure to COVID-19; Z68.26 Body mass index [BMI] 26.0-26.9, adult; Z87.440 Personal history of urinary (tract) infections; Z87.891 Personal history of nicotine dependence; Z88.2 Allergy status to sulfonamides; Z88.5 Allergy status to narcotic agent; Z88.6 Allergy status to analgesic agent; Z88.8 Allergy status to other drugs, medicaments and biological substances; Z79.899 Other long term (current) drug therapy
CPT/HCPCS: 36415; 36600; 71046; 80048; 80053; 81001; 82803; 83605; 83735; 85025; 85027; 85610; 87040; 87086; 87502; 87635; 94640; 94644; 94645; 96365; 96366; 96375; 99285; J0696; J1650; J2060; J2405; J2930; J3475

== ENCOUNTER 2022-04-19 12:35 | Outpatient (REF) | payer MEDICAID, SELFPAY ==
--- NOTE | ~2022-04-19 | XR_ITS ---
EXAMINATION: XR HIP, RIGHT CLINICAL INFORMATION: Right hip pain. COMPARISON: None TECHNIQUE: Two views of the right hip. FINDINGS: Bones and soft tissues are normal. No fracture. Alignment is anatomic. Hip joint space is maintained. XR/XR hip RT min 2V IMPRESSION: Unremarkable right hip.
--- NOTE | ~2022-04-19 | XR_ITS ---
EXAMINATION: XR LUMBOSACRAL SPINE CLINICAL INFORMATION: Low back pain with right-sided sciatica. COMPARISON: None TECHNIQUE: Three views of the lumbosacral spine. FINDINGS: The vertebral bodies and posterior elements are normal. The disc spaces are preserved and the vertebral alignment is normal. The paraspinal soft tissues are normal. XR/XR lumbar spine 2-3V IMPRESSION: Unremarkable lumbar spine.
== END 2022-04-19 12:36 | disposition home or self-care (01) ==
LOC: HO.XRAY 12:35
PROVIDERS: PCP Internal Medicine; Visit Provider Internal Medicine
DX: M25.551 Pain in right hip (principal); M54.41 Lumbago with sciatica, right side
CPT/HCPCS: 72100; 73502

== ENCOUNTER 2022-06-11 12:47 | Emergency (ER) | payer MEDICAID, SELFPAY ==
--- NOTE | ~2022-06-11 | US_ITS ---
EXAMINATION: US ABDOMEN LIMITED CLINICAL INFORMATION: Elevated liver function tests. COMPARISON: CT abdomen and pelvis dated 06/11/2022; abdominal ultrasound dated 01/11/2018. TECHNIQUE: Real-time imaging of the gallbladder and common bile duct. FINDINGS: GALLBLADDER: Normal. The gallbladder is physiologically distended without evidence of stones, sludge, polyps, wall thickening or pericholecystic fluid. COMMON BILE DUCT: Normal in caliber measuring 0.4 cm in diameter. FREE FLUID: None demonstrated. US/US abdomen limited IMPRESSION: Unremarkable ultrasound examination of the gallbladder and common bile duct.
--- NOTE | ~2022-06-11 | US_ITS ---
EXAMINATION: US RETROPERITONEAL LIMITED (RENAL ONLY) CLINICAL INFORMATION: Flank pain. COMPARISON: None TECHNIQUE: Routine grayscale imaging of kidneys is performed. FINDINGS: RIGHT KIDNEY: 11.8 x 5.5 x 5.8 cm (SAG x AP x TRV). The kidney is normal in size, contour, and echogenicity. Renal cortical thickness is normal. No calculi or focal parenchymal lesions. No hydronephrosis. LEFT KIDNEY: 11.7 x 5.6 x 3.9 cm (SAG x AP x TRV). The kidney is normal in size, contour, and echogenicity. Renal cortical thickness is normal. No calculi or focal parenchymal lesions. No hydronephrosis. US/US renal BI IMPRESSION: Unremarkable renal ultrasound.
--- NOTE | ~2022-06-11 | CT_ITS ---
EXAMINATION: CT ABDOMEN AND PELVIS WITH CONTRAST CLINICAL INFORMATION: Right abdominal pain. Question appendicitis or cholecystitis. COMPARISON: CT abdomen pelvis 04/19/2021 TECHNIQUE: Multidetector volumetric images were obtained from the superior aspect of the liver through the pubic symphysis following administration 85 mL of Omnipaque 350 intravenous contrast. Sagittal and coronal reformatted images were obtained on the technologist's workstation. Oral contrast: No This CT examination was performed using dose optimization techniques as appropriate, variously including the following: *Automated exposure control *Adjustment of mA and/or kV according to patient size (this includes techniques or standardized protocols for targeted exams where dose is matched to indication/reason for exam; i.e. extremities or head) *Use of iterative reconstruction technique DLP: 549 mGy-cm FINDINGS: LUNG BASES: Small sub-4 mm calcified granulomas in the right middle and lower lobe, unchanged. Lung bases otherwise clear. LIVER, GALLBLADDER, AND BILIARY TREE: Diffuse hepatic hypoattenuation consistent with steatosis. Small relative fatty sparing involving a small area in the medial segment left liver lobe. No liver lesion. No biliary ductal dilation. Normal hepatic size. The gallbladder is unremarkable with no evidence of radiopaque gallstones, gallbladder wall thickening, or obvious pericholecystic inflammatory changes. PANCREAS: Unremarkable. SPLEEN: Unremarkable. ADRENAL GLANDS: Unremarkable. KIDNEYS AND URETERS: The kidneys are normal in size, shape, and attenuation. No hydronephrosis, hydroureter, or calculi seen. No perinephric stranding. BLADDER: Unremarkable. GASTROINTESTINAL TRACT: Small hiatal hernia. No dilated bowel loops. No bowel wall thickening. Normal appendix. No ascites or free air. ABDOMINAL WALL: No significant hernia is appreciated. LYMPH NODES: No lymphadenopathy. VASCULAR: Normal caliber abdominal aorta. PELVIC VISCERA: Status post supracervical hysterectomy. OSSEOUS STRUCTURES: No acute fracture or suspicious osseous lesion. CT/CT abdomen pelvis w IV con IMPRESSION: 1. No evidence of acute appendicitis or other acute intra-abdominal process. 2. Hepatic steatosis.
[2022-06-11 14:40] VITALS: BP 137/85; PULSE 82; RESP 20; TEMP 36.6; O2SAT 99; BMI 28.3
--- NOTE | 2022-06-11 14:49 | ED.ABDPAIN ---
HPI - Abdominal Pain General Chief Complaint: Abdominal Pain Stated Complaint: Vomiting Not Feeling Well Time Seen by Provider: 06/11/22 18:12 Source: patient Mode of arrival: ambulatory Limitations: no limitations History of Present Illness HPI narrative: 46-year-old female history of kidney infections in the past and having bilateral flank pains right more than left with nausea and vomiting, no fever, no dysuria, no frequency. Labs/bilateral renal ultrasound was ordered patient was symptomatic in the ED and was given oxycodone for pain and Phenergan for nausea and vomiting. Related Data Home Medications Medication Instructions Recorded Confirmed albuterol sulfate 2.5 mg/0.5 mL 5 mg inhalation QID 05/17/20 02/08/22 solution for nebulization montelukast 10 mg tablet 10 mg PO DAILY 05/17/20 02/08/22 (Singulair) omeprazole 40 mg capsule,delayed 40 mg PO BID 05/24/21 02/08/22 release oxycodone 5 mg capsule 5 mg PO Q12H PRN back pain 05/24/21 02/08/22 blood sugar diagnostic (FreeStyle #10 ea 07/02/21 02/08/22 Lite Strips) lancets 33 gauge (TRUEplus Lancets) #100 ea 07/02/21 02/08/22 albuterol sulfate 90 mcg/actuation 2 puff PO Q4-6H PRN Shortness Of 12/24/21 02/08/22 aerosol inhaler (ProAir HFA) Breath Previous Rx's Medication Instructions Recorded ascorbic acid (vitamin C) 1,000 mg 1 g PO DAILY 90 days #90 tabs 07/02/21 tablet cranberry 400 mg capsule 400 mg PO DAILY 30 days #30 caps 07/02/21 loratadine 10 mg tablet (Allergy 10 mg PO DAILY #30 tabs 12/22/21 Relief (loratadine)) oxymetazoline 0.05 % nasal mist 2 spray intranasal Q12H PRN nasal 12/22/21 (Afrin (oxymetazoline)) congestion 3 days #15 mL cephalexin 500 mg capsule 500 mg PO QID 7 days #28 caps 06/11/22 doxycycline hyclate 100 mg capsule 100 mg PO BID 7 days #14 caps 06/11/22 oxycodone 5 mg capsule 5 mg PO TID PRN pain 3 days #9 caps 06/11/22 Allergies Allergy/AdvReac Type Severity Reaction Status Date / Time levofloxacin [From Levaquin] Allergy Intermediate INTERACTED Verified 02/08/22 14:13 W/ANTI DEPRESSANT morphine [MORPHINE] Allergy Intermediate ITCHING, Verified 02/08/22 14:13 HIVES trazodone [TRAZODONE] Allergy Mild TACHYCARDIA Verified 02/08/22 14:13 amitriptyline Allergy Unknown Unknown Verified 02/08/22 14:13 citalopram Allergy Unknown Unknown Verified 02/08/22 14:13 escitalopram Allergy Unknown Unknown Verified 02/08/22 14:13 ibuprofen Allergy Unknown Unknown Verified 02/08/22 14:13 ketorolac Allergy Unknown Unknown Verified 02/08/22 14:13 sertraline Allergy Unknown Unknown Verified 02/08/22 14:13 Sulfa (Sulfonamide Allergy Unknown Unknown Verified 02/08/22 14:13 Antibiotics) topiramate Allergy Unknown Unknown Verified 02/08/22 14:13 trimethoprim Allergy Unknown Unknown Verified 02/08/22 14:13 zolpidem Allergy Unknown Unknown Verified 02/08/22 14:13 NSAIDS (Non-Steroidal AdvReac Severe HYPEREMESIS Verified 02/08/22 14:13 Anti-Inflamma [NSAIDS (NON-STEROIDAL ANTI-INFLAMMA] adhesive tape AdvReac Blister Verified 02/08/22 14:13 From Celexa Allergy Intermediate INTERACTS Uncoded 02/08/22 14:13 W/LEVAQUIN ANTIDEPRESENT Allergy Unknown Unknown Uncoded 02/08/22 14:13 Sulfamethoxazole Allergy Unknown Unknown Uncoded 02/08/22 14:13 toradol Allergy Unknown Unknown Uncoded 02/08/22 14:13 From Ambien AdvReac Severe TACHYCARDIA Uncoded 02/08/22 14:13 From Ultram AdvReac Severe TACHYCARDIA Uncoded 02/08/22 14:13 From ZOLOFT AdvReac Severe TACHYCARDIA Uncoded 02/08/22 14:13 From TORADOL AdvReac Mild STOMACH Uncoded 02/08/22 14:13 UPSET Review of Systems Review of Systems all other systems are reviewed and are negative Constitutional: Reports as per HPI and Reports no additional constitutional complaints Eyes: Reports as per HPI and Reports no additional eye complaints Reports system reviewed and no additional complaints, except as documented Cardiovascular: Reports as per HPI and Reports no additional cardiovascular complaints Respiratory: Reports as per HPI and Reports no additional respiratory complaints Gastrointestinal: Reports as per HPI and Reports no additional gastrointestinal complaints Genitourinary: Reports no additional female genitourinary complaints Musculoskeletal: Reports no additional musculoskeletal complaints Skin/Breast: Reports system reviewed and no additional complaints, except as docu Psychiatric: Reports no additional psychiatric complaints Endocrine: Reports no additional endocrine complaints Hematologic/Lymphatic: Reports no additional hematologic/lymphatic complaints Allergic/Immunologic: Reports no additional allergic/immunologic complaints Reports system reviewed and no additional complaints, except as documented and Reports Abnormal speech present [facility] Past Medical History Medical History (Updated 06/11/22 @ 22:37 by ARLENE Lewis) Adhesive capsulitis of right shoulder Asthma Fibromyalgia Hepatic steatosis Migraines Recurrent UTI Unspecified internal derangement of unspecified knee Surgical History (Updated 02/08/22 @ 14:42 by Hemanth Navas MD) History of left oophorectomy History of partial hysterectomy Previous section Family History Family History (Updated 02/08/22 @ 14:11 by Audelia Morales CMA) Father No problems noted. Mother No problems noted. Maternal Aunt Breast cancer Paternal Uncle Cancer Social History Social History (Updated 02/08/22 @ 14:12 by Audelia Morales CMA) Household Members: None Housing: Apartment Are you a primary director critical care to a significant other at home: No Do you presently have visiting nurse or other home services: No Alcohol intake: never Patient Tobacco Use Status: Former Tobacco user Tobacco use type: Cigarette Smoked in Last 30 Days: No Second Hand Smoke Exposure: No Use of substances other than those prescribed or required for medical reasons: Yes Substance Use Type: Marijuana Advance Directives: No Advance Directives Information Provided: No service: No Current occupational status: unemployed Current occupation: [employer] - Right Handed Physical Exam ED Vital Signs: Vital Signs - 24 hr 06/11/22 14:40 06/11/22 15:58 06/11/22 22:30 Temperature 97.9 F 98.9 F Pulse Rate 82 80 65 Respiratory Rate 20 18 18 Blood Pressure 137/85 127/84 108/66 Pulse Oximetry 99 98 98 Oxygen Delivery Method Room Air Room Air Room Air BMI result Body Mass Index 28.3 Course Reevaluation(s) Reevaluation #1: 46-year-old female history of kidney infections in the past and having bilateral flank pains right more than left with nausea and vomiting, no fever, no dysuria, no frequency. Labs/bilateral renal ultrasound was ordered patient was symptomatic in the ED and was given oxycodone for pain and Phenergan for nausea and vomiting. Time: 14:50 Medications Administered Discontinued Medications Generic Name Dose Route Start Last Admin Trade Name Denisha PRN Reason Stop Dose Admin Ceftriaxone Sodium 500 mg/ 0 mg 06/11/22 23:42 06/11/22 23:56 Lidocaine HCl 1 ml IM 06/11/22 23:43 500 kit ONCE ONE Administration Hydromorphone HCl 0.5 mg 06/11/22 20:03 06/11/22 20:15 Hydromorphone Hcl 0.5 Mg/0.5 Ml Syringe IVPUSH 06/11/22 20:04 0.5 mg ONCE ONE Administration Protocol Sodium Chloride 1,000 mls @ 999 mls/hr 06/11/22 22:32 06/11/22 23:42 Ns IV 06/11/22 23:32 Infused .Q1H1M STA Infusion Iohexol 100 ml 06/11/22 21:46 06/11/22 21:46 Iohexol 350 Mg/Ml 100 Ml Infus..Btl IV 06/11/22 21:47 85 ml ONCE ONE Administration Ondansetron HCl 4 mg 06/11/22 21:20 06/11/22 21:26 Ondansetron Hcl 4 Mg/2 Ml Vial IVPUSH 06/11/22 21:21 4 mg ONCE ONE Administration Oxycodone HCl 5 mg 06/11/22 14:47 06/11/22 15:07 Oxycodone Hcl Immed Release 5 Mg Tablet PO 06/11/22 14:48 5 mg ONCE ONE Administration Promethazine HCl 25 mg 06/11/22 14:47 06/11/22 15:07 Promethazine Hcl 25 Mg Tablet PO 06/11/22 14:48 25 mg ONCE ONE Administration Promethazine HCl 25 mg 06/11/22 18:11 06/11/22 21:08 Promethazine Hcl 25 Mg Tablet PO 06/11/22 18:12 25 mg ONCE ONE Administration MDM - Abdominal Pain Lab Data Result diagrams: 06/11/22 14:54 06/11/22 14:54 Labs: Lab Results 06/11/22 06/11/22 06/11/22 Range/Units 14:54 14:54 15:06 WBC 14.2 H (4.8-10.8) X10*3/uL RBC 4.91 (4.20-5.50) X10*6/uL Hgb 12.9 (12.0-16.0) g/dl Hct 40.2 (37.0-47.0) % MCV 81.9 (80.0-98.0) fL MCH 26.3 L (27.0-33.0) pg MCHC 32.1 (31.0-35.0) g/dl RDW 15.0 (11.0-16.0) % Plt Count 400 (160-400) X10*3/uL MPV 9.4 (9.4-12.3) fL Immature Gran % (Auto) 0.4 (0.0-0.4) % Neut % (Auto) 69.9 (45-73) % Lymph % (Auto) 22.2 (20-40) % [place] % (Auto) 5.6 (2-11) % Eos % (Auto) 1.1 (0-4) % Baso % (Auto) 0.8 (0-2) % Lymph # (Auto) 3.2 (1.2-4.9) X10*3/uL [place] # (Auto) 0.8 (0.1-1.2) X10*3/uL Eos # (Auto) 0.2 (0.0-0.4) X10*3/uL Baso # (Auto) 0.1 (0.0-0.2) X10*3/uL Abs Immat Gran (auto) 0.05 H (0.00-0.03) X10*3/uL Absolute Neuts (auto) 9.9 H (2.0-8.3) x10*3/uL Absolute Nucleated RBC 0.000 (0.0-0.012) X10*3/uL Nucleated RBC % (auto) 0.0 (0.0-0.2) /100WBC Sodium 139 (135-145) mmol/L Potassium 4.4 (3.3-5.1) mmol/L Chloride 102 (96-108) mmol/L Carbon Dioxide 26 (22-29) mmol/L Anion Gap 15 (12-20) BUN 9 (9-16) mg/dL Creatinine 0.79 (0.5-1.4) mg/dL Estim Creat Clear Calc 85.8 Estimated GFR > 60 Random Glucose 109 (60-115) mg/dL Calcium 9.6 D (8.4-10.2) mg/dL Total Bilirubin 0.4 (0.0-1.0) mg/dL Direct Bilirubin 0.2 (0.0-0.5) mg/dL AST 53 H (5-31) U/L ALT 98 H (0-31) U/L Alkaline Phosphatase 129 H D (39-117) U/L Total Protein 8.2 H (6.5-8.0) g/dL Albumin 4.6 (3.5-5.0) g/dL Lipase 17 (8-78) U/L Urine Color Yellow Urine Appearance Hazy Urine pH 6.5 (5.0-9.0) Ur Specific [place] 1.020 (1.005-1.025) Urine Protein Negative (Neg-Trace) mg/dL Urine Glucose (UA) Negative (Negative) mg/dL Urine Ketones Negative (Negative) mg/dL Urine Blood Trace (Negative) Urine Nitrite Positive H (Negative) Ur Leukocyte Esterase Negative (Negative) Urine RBC 0-2 (0-2) /HPF Urine WBC 0-5 (0-5) /HPF Ur Squamous Epith Cells 3-5 (0-2) /HPF Urine Bacteria Trace (None Seen) Hyaline Casts 0-2 (0-2) /LPF Urine Test (NEGATIVE) 06/11/22 Range/Units 15:06 WBC (4.8-10.8) X10*3/uL RBC (4.20-5.50) X10*6/uL Hgb (12.0-16.0) g/dl Hct (37.0-47.0) % MCV (80.0-98.0) fL MCH (27.0-33.0) pg MCHC (31.0-35.0) g/dl RDW (11.0-16.0) % Plt Count (160-400) X10*3/uL MPV (9.4-12.3) fL Immature Gran % (Auto) (0.0-0.4) % Neut % (Auto) (45-73) % Lymph % (Auto) (20-40) % [place] % (Auto) (2-11) % Eos % (Auto) (0-4) % Baso % (Auto) (0-2) % Lymph # (Auto) (1.2-4.9) X10*3/uL [place] # (Auto) (0.1-1.2) X10*3/uL Eos # (Auto) (0.0-0.4) X10*3/uL Baso # (Auto) (0.0-0.2) X10*3/uL Abs Immat Gran (auto) (0.00-0.03) X10*3/uL Absolute Neuts (auto) (2.0-8.3) x10*3/uL Absolute Nucleated RBC (0.0-0.012) X10*3/uL Nucleated RBC % (auto) (0.0-0.2) /100WBC Sodium (135-145) mmol/L Potassium (3.3-5.1) mmol/L Chloride (96-108) mmol/L Carbon Dioxide (22-29) mmol/L Anion Gap (12-20) BUN (9-16) mg/dL Creatinine (0.5-1.4) mg/dL Estim Creat Clear Calc Estimated GFR Random Glucose (60-115) mg/dL Calcium (8.4-10.2) mg/dL Total Bilirubin (0.0-1.0) mg/dL Direct Bilirubin (0.0-0.5) mg/dL AST (5-31) U/L ALT (0-31) U/L Alkaline Phosphatase (39-117) U/L Total Protein (6.5-8.0) g/dL Albumin (3.5-5.0) g/dL Lipase (8-78) U/L Urine Color Urine Appearance Urine pH (5.0-9.0) Ur Specific [place] (1.005-1.025) Urine Protein (Neg-Trace) mg/dL Urine Glucose (UA) (Negative) mg/dL Urine Ketones (Negative) mg/dL Urine Blood (Negative) Urine Nitrite (Negative) Ur Leukocyte Esterase (Negative) Urine RBC (0-2) /HPF Urine WBC (0-5) /HPF Ur Squamous Epith Cells (0-2) /HPF Urine Bacteria (None Seen) Hyaline Casts (0-2) /LPF Urine Test NEGATIVE (NEGATIVE) Discharge Plan Discharge Clinical Impression: Abdominal pain, UTI (urinary tract infection) Patient Disposition: Home, Self-Care Instructions: Urinary Tract Infection in Women (ED), Abdominal Pain (ED) Additional Instructions: Your CT scan came back normal. The ultrasounds came back normal. You will be discharged with antibiotic for urinary tract infection. You will be discharged with pain medication. Please follow-up with your primary care provider. Return to the ED for any worsening abdominal pain, chest pain, shortness of breath, dysuria, hematuria, flank pain, fever, chills, vaginal bleeding, vaginal discharge, or any other concerning symptoms. Prescriptions: New cephalexin 500 mg capsule 500 mg PO QID 7 Days Qty: 28 0RF oxycodone 5 mg capsule 5 mg PO TID PRN (Reason: pain) 3 Days Qty: 9 0RF Rx Instructions: Partial Fill upon patient request. doxycycline hyclate 100 mg capsule 100 mg PO BID 7 Days Qty: 14 0RF No Action Afrin (oxymetazoline) 0.05 % mist 2 spray intranasal Q12H PRN (Reason: nasal congestion) 3 Days Qty: 15 0RF loratadine [Allergy Relief (loratadine)] 10 mg tablet 10 mg PO DAILY Qty: 30 0RF albuterol sulfate [ProAir HFA] 90 mcg/actuation HFA aerosol inhaler 2 puff PO Q4-6H PRN (Reason: Shortness Of Breath) montelukast [Singulair] 10 mg tablet 10 mg PO DAILY albuterol sulfate 2.5 mg/0.5 mL solution for nebulization 5 mg inhalation QID (DME) lancets [TRUEplus Lancets] 33 gauge misc See Rx Instructions Not Applicable DAILY Qty: 100 Rx Instructions: As directed (DME) FreeStyle Lite Strips Strip See Rx Instructions Not Applicable DAILY Qty: 10 Rx Instructions: As directed ascorbic acid (vitamin C) 1,000 mg tablet 1 g PO DAILY 90 Days Qty: 90 1RF cranberry 400 mg capsule 400 mg PO DAILY 30 Days Qty: 30 3RF Rx Instructions: administer with a meal oxycodone 5 mg capsule 5 mg PO Q12H PRN (Reason: back pain) omeprazole 40 mg capsule,delayed release(DR/EC) 40 mg PO BID Stand Alone Forms: Work/School Release Interventions: ED Discharge Assessment Last Done: 06/12/22 00:05 Discharge Date/Time: 06/12/22 00:07 Print Language: Cuban
[2022-06-11 14:57] LABS: MANUAL DIFF FLAG NO
[2022-06-11 14:59] LABS: Basophils Absolute Auto 0.1 X10*3/uL (0.0-0.2); Basophils Percent Auto 0.8 % (0-2); Eosinophils Absolute Auto 0.2 X10*3/uL (0.0-0.4); Eosinophils Percent Auto 1.1 % (0-4); Hematocrit 40.2 % (37.0-47.0); Hemoglobin 12.9 g/dl (12.0-16.0); Imm Gran Abs Auto 0.05 X10*3/uL (0.00-0.03); Imm Gran Pct Auto 0.4 % (0.0-0.4); Lymphocytes Absolute Auto 3.2 X10*3/uL (1.2-4.9); Lymphocytes Percent Auto 22.2 % (20-40); Mean Corpuscular HGB Conc 32.1 g/dl (31.0-35.0); Mean Corpuscular Hemoglobin 26.3 pg (27.0-33.0); Mean Corpuscular Volume 81.9 fL (80.0-98.0); Mean Platelet Volume 9.4 fL (9.4-12.3); Monocytes Absolute Auto 0.8 X10*3/uL (0.1-1.2); Monocytes Percent Auto 5.6 % (2-11); Neutrophils Absolute Auto 9.9 x10*3/uL (2.0-8.3); Neutrophils Percent Auto 69.9 % (45-73); Platelet Count 400 X10*3/uL (160-400); Red Blood Count 4.91 X10*6/uL (4.20-5.50); White Blood Count 14.2 X10*3/uL (4.8-10.8)
[2022-06-11] MEDS: oxyCODONE HCl Immed Release 5 MG TABLET PO (15:07)
[2022-06-11] MEDS: Promethazine HCL 25 MG TABLET PO ×2 (15:07→21:08)
[2022-06-11 15:13] LABS: Appearance Urine Hazy; Color Urine Yellow; Glucose Urine UA Negative (Negative); Leukocyte Esterase Urine Negative (Negative); Nitrite Urine Positive (Negative); PH 6.5 (5.0-9.0); UMIC TRIGGER UACC YES; Urine Blood Trace (Negative); Urine Ketones Negative (Negative); Urine Protein Negative (Neg-Trace)
[2022-06-11 15:27] LABS: Alanine Aminotransferase 98 U/L (0-31); Albumin Level 4.6 g/dL (3.5-5.0); Alkaline Phosphatase 129 U/L (39-117); Anion Gap 15 (12-20); Aspartate Amino Transferase 53 U/L (5-31); Bilirubin Direct 0.2 mg/dL (0.0-0.5); Bilirubin Total 0.4 mg/dL (0.0-1.0); Blood Urea Nitrogen 9 mg/dL (9-16); Calcium 9.6 mg/dL (8.4-10.2); Carbon Dioxide 26 mmol/L (22-29); Chloride 102 mmol/L (96-108); Creatinine Clr Calc Pharmacy 85.8; Estimated Glomerular Filt Rate > 60; Glucose Random 109 mg/dL (60-115); Lipase 17 U/L (8-78); Potassium 4.4 mmol/L (3.3-5.1); Sodium 139 mmol/L (135-145); Total Protein 8.2 g/dL (6.5-8.0)
[2022-06-11 15:29] LABS: RBC Urine 0-2 /HPF (0-2); UACC Culture Trigger YES; WBC Urine 0-5 /HPF (0-5)
[2022-06-11 15:30] LABS: Bacteria Urine Trace (None Seen); Hyaline Casts Urine 0-2 /LPF (0-2)
[2022-06-11 15:58] VITALS: BP 127/84; PULSE 80; RESP 18; TEMP 37.2; O2SAT 98
[2022-06-11 20:04] LABS: UPreg QC Valid YES; Urine Pregnancy NEGATIVE (NEGATIVE)
--- NOTE | 2022-06-11 20:05 | ED.GENADULT ---
HPI - General Adult General Chief complaint: Abdominal Pain Stated complaint: Vomiting Not Feeling Well Time Seen by Provider: 06/11/22 18:12 Source: patient Mode of arrival: ambulatory Limitations: no limitations History of Present Illness HPI narrative: 46 yold female presents to the ED for RIght sided abdominal pain. patient states RIght flank pain with right lower qaudarant and periumbilical pain. patient states nausea also. patient denies any chest pain, shortness of breath, fever, chills, dysuria, or hematuria. Related Data Home Medications Medication Instructions Recorded Confirmed albuterol sulfate 2.5 mg/0.5 mL 5 mg inhalation QID 05/17/20 02/08/22 solution for nebulization montelukast 10 mg tablet 10 mg PO DAILY 05/17/20 02/08/22 (Singulair) omeprazole 40 mg capsule,delayed 40 mg PO BID 05/24/21 02/08/22 release oxycodone 5 mg capsule 5 mg PO Q12H PRN back pain 05/24/21 02/08/22 blood sugar diagnostic (FreeStyle #10 ea 07/02/21 02/08/22 Lite Strips) lancets 33 gauge (TRUEplus Lancets) #100 ea 07/02/21 02/08/22 albuterol sulfate 90 mcg/actuation 2 puff PO Q4-6H PRN Shortness Of 12/24/21 02/08/22 aerosol inhaler (ProAir HFA) Breath Previous Rx's Medication Instructions Recorded ascorbic acid (vitamin C) 1,000 mg 1 g PO DAILY 90 days #90 tabs 07/02/21 tablet cranberry 400 mg capsule 400 mg PO DAILY 30 days #30 caps 07/02/21 loratadine 10 mg tablet (Allergy 10 mg PO DAILY #30 tabs 12/22/21 Relief (loratadine)) oxymetazoline 0.05 % nasal mist 2 spray intranasal Q12H PRN nasal 12/22/21 (Afrin (oxymetazoline)) congestion 3 days #15 mL cephalexin 500 mg capsule 500 mg PO QID 7 days #28 caps 06/11/22 oxycodone 5 mg capsule 5 mg PO TID PRN pain 3 days #9 caps 06/11/22 Allergies Allergy/AdvReac Type Severity Reaction Status Date / Time levofloxacin [From Levaquin] Allergy Intermediate INTERACTED Verified 02/08/22 14:13 W/ANTI DEPRESSANT morphine [MORPHINE] Allergy Intermediate ITCHING, Verified 02/08/22 14:13 HIVES trazodone [TRAZODONE] Allergy Mild TACHYCARDIA Verified 02/08/22 14:13 amitriptyline Allergy Unknown Unknown Verified 02/08/22 14:13 citalopram Allergy Unknown Unknown Verified 02/08/22 14:13 escitalopram Allergy Unknown Unknown Verified 02/08/22 14:13 ibuprofen Allergy Unknown Unknown Verified 02/08/22 14:13 ketorolac Allergy Unknown Unknown Verified 02/08/22 14:13 sertraline Allergy Unknown Unknown Verified 02/08/22 14:13 Sulfa (Sulfonamide Allergy Unknown Unknown Verified 02/08/22 14:13 Antibiotics) topiramate Allergy Unknown Unknown Verified 02/08/22 14:13 trimethoprim Allergy Unknown Unknown Verified 02/08/22 14:13 zolpidem Allergy Unknown Unknown Verified 02/08/22 14:13 NSAIDS (Non-Steroidal AdvReac Severe HYPEREMESIS Verified 02/08/22 14:13 Anti-Inflamma [NSAIDS (NON-STEROIDAL ANTI-INFLAMMA] adhesive tape AdvReac Blister Verified 02/08/22 14:13 From Celexa Allergy Intermediate INTERACTS Uncoded 02/08/22 14:13 W/LEVAQUIN ANTIDEPRESENT Allergy Unknown Unknown Uncoded 02/08/22 14:13 Sulfamethoxazole Allergy Unknown Unknown Uncoded 02/08/22 14:13 toradol Allergy Unknown Unknown Uncoded 02/08/22 14:13 From Ambien AdvReac Severe TACHYCARDIA Uncoded 02/08/22 14:13 From Ultram AdvReac Severe TACHYCARDIA Uncoded 02/08/22 14:13 From ZOLOFT AdvReac Severe TACHYCARDIA Uncoded 02/08/22 14:13 From TORADOL AdvReac Mild STOMACH Uncoded 02/08/22 14:13 UPSET Review of Systems Review of Systems: RIght flank and lower abdominal pain with nausea Yes all other systems are reviewed and are negative PMFSH Past Medical History Medical History (Updated 06/11/22 @ 22:37 by ARLENE Lewis) Adhesive capsulitis of right shoulder Asthma Fibromyalgia Hepatic steatosis Migraines Recurrent UTI Unspecified internal derangement of unspecified knee Surgical History (Updated 02/08/22 @ 14:42 by Hemanth Navas MD) History of left oophorectomy History of partial hysterectomy Previous section Family History Family History (Updated 02/08/22 @ 14:11 by Audelia Morales CMA) Father No problems noted. Mother No problems noted. Maternal Aunt Breast cancer Paternal Uncle Cancer Social History Social History (Updated 02/08/22 @ 14:12 by Audelia Morales CMA) Household Members: None Housing: Apartment Are you a primary care transitions manager to a significant other at home: No Do you presently have visiting nurse or other home services: No Alcohol intake: never Patient Tobacco Use Status: Former Tobacco user Tobacco use type: Cigarette Smoked in Last 30 Days: No Second Hand Smoke Exposure: No Use of substances other than those prescribed or required for medical reasons: Yes Substance Use Type: Marijuana Advance Directives: No Advance Directives Information Provided: No service: No Current occupational status: unemployed 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 Physical Exam ED Vital Signs: Vital Signs - 24 hr 06/11/22 14:40 06/11/22 15:58 06/11/22 22:30 Temperature 97.9 F 98.9 F Pulse Rate 82 80 65 Respiratory Rate 20 18 18 Blood Pressure 137/85 127/84 108/66 Pulse Oximetry 99 98 98 Oxygen Delivery Method Room Air Room Air Room Air BMI result Body Mass Index 28.3 Const General: cooperative, healthy appearing, comfortable, no acute distress, well developed, alert, awake and Physically active Orientation/consciousness: oriented to time and patient oriented x3 [facility] Head: Yes normal to inspection, Yes No palpable skull fracture present, Yes normocephalic, Yes atraumatic and No abrasion Eyes General: appearance normal, both eyes and all related structures Neck Neck: Yes normal visual inspection, Yes full ROM, Yes no lymphadenopathy, Yes no meningeal signs, Yes trachea midline, Yes supple, No anterior neck swelling and No tender Chest Chest palpation & inspection: normal inspection of the chest and normal palpation of entire chest wall Resp Effort & Inspection: normal respiratory effort and able to speak in complete sentences Auscultation: clear to auscultation bilaterally Cardio Jugular venous distension: no JVD Heart sounds: S1 normal heart sound present and S2 normal heart sound present GI Inspection: Yes normal to inspection and No abdominal wall ecchymosis Palpation (GI): Tenderness to palpation present (GI) (periumbilical) in the RLQ and suprapubicly General: No CVA tenderness and Yes no CVA tenderness Back/Spine/Pelvis Back: no CVA tenderness, No CVA tenderness and No back tenderness Skin General skin exam: no rashes or lesions noted and elasticity normal Neuro General: oriented to time, patient oriented x3, gait normal, tone normal, no meningeal signs and CN's II-XI intact bilaterally Cranial nerves: Yes CN's II-XII intact bilaterally Extrem General: Yes normal to inspection and Yes full ROM Psych Appearance: grossly normal, well kempt and not disheveled Course Course Course Narrative: labs and renal ultrasound were ordered. Patient has WBC of 14,000 and UA shows nitirte with no WBC, blood, or bacteria, due to significant tenderness I will order Abdominal CT scan. Reevaluation(s) Reevaluation #1: CT scan and abdominal ultrasound came back normal. Patient is safe for discharge. Time: 22:33 Medications Administered Generic Name Dose Route Start Last Admin Trade Name Freq PRN Reason Stop Dose Admin Sodium Chloride 1,000 mls @ 999 mls/hr 06/11/22 22:32 06/11/22 22:35 Ns IV 06/11/22 23:32 999 mls/hr .Q1H1M STA Administration Discontinued Medications Generic Name Dose Route Start Last Admin Trade Name Freq PRN Reason Stop Dose Admin Hydromorphone HCl 0.5 mg 06/11/22 20:03 06/11/22 20:15 Hydromorphone Hcl 0.5 Mg/0.5 Ml Syringe IVPUSH 06/11/22 20:04 0.5 mg ONCE ONE Administration Protocol Iohexol 100 ml 06/11/22 21:46 06/11/22 21:46 Iohexol 350 Mg/Ml 100 Ml Infus..Btl IV 06/11/22 21:47 85 ml ONCE ONE Administration Ondansetron HCl 4 mg 06/11/22 21:20 06/11/22 21:26 Ondansetron Hcl 4 Mg/2 Ml Vial IVPUSH 06/11/22 21:21 4 mg ONCE ONE Administration Oxycodone HCl 5 mg 06/11/22 14:47 06/11/22 15:07 Oxycodone Hcl Immed Release 5 Mg Tablet PO 06/11/22 14:48 5 mg ONCE ONE Administration Promethazine HCl 25 mg 06/11/22 14:47 06/11/22 15:07 Promethazine Hcl 25 Mg Tablet PO 06/11/22 14:48 25 mg ONCE ONE Administration Promethazine HCl 25 mg 06/11/22 18:11 06/11/22 21:08 Promethazine Hcl 25 Mg Tablet PO 06/11/22 18:12 25 mg ONCE ONE Administration Medical Decision Making MDM Narrative Medical decision making narrative: Abdominal pain. UTI Lab Data Result diagrams: 06/11/22 14:54 06/11/22 14:54 Labs: Lab Results 06/11/22 06/11/22 06/11/22 Range/Units 14:54 14:54 15:06 WBC 14.2 H (4.8-10.8) X10*3/uL RBC 4.91 (4.20-5.50) X10*6/uL Hgb 12.9 (12.0-16.0) g/dl Hct 40.2 (37.0-47.0) % MCV 81.9 (80.0-98.0) fL MCH 26.3 L (27.0-33.0) pg MCHC 32.1 (31.0-35.0) g/dl RDW 15.0 (11.0-16.0) % Plt Count 400 (160-400) X10*3/uL MPV 9.4 (9.4-12.3) fL Immature Gran % (Auto) 0.4 (0.0-0.4) % Neut % (Auto) 69.9 (45-73) % Lymph % (Auto) 22.2 (20-40) % [place] % (Auto) 5.6 (2-11) % Eos % (Auto) 1.1 (0-4) % Baso % (Auto) 0.8 (0-2) % Lymph # (Auto) 3.2 (1.2-4.9) X10*3/uL [place] # (Auto) 0.8 (0.1-1.2) X10*3/uL Eos # (Auto) 0.2 (0.0-0.4) X10*3/uL Baso # (Auto) 0.1 (0.0-0.2) X10*3/uL Abs Immat Gran (auto) 0.05 H (0.00-0.03) X10*3/uL Absolute Neuts (auto) 9.9 H (2.0-8.3) x10*3/uL Absolute Nucleated RBC 0.000 (0.0-0.012) X10*3/uL Nucleated RBC % (auto) 0.0 (0.0-0.2) /100WBC Sodium 139 (135-145) mmol/L Potassium 4.4 (3.3-5.1) mmol/L Chloride 102 (96-108) mmol/L Carbon Dioxide 26 (22-29) mmol/L Anion Gap 15 (12-20) BUN 9 (9-16) mg/dL Creatinine 0.79 (0.5-1.4) mg/dL Estim Creat Clear Calc 85.8 Estimated GFR > 60 Random Glucose 109 (60-115) mg/dL Calcium 9.6 D (8.4-10.2) mg/dL Total Bilirubin 0.4 (0.0-1.0) mg/dL Direct Bilirubin 0.2 (0.0-0.5) mg/dL AST 53 H (5-31) U/L ALT 98 H (0-31) U/L Alkaline Phosphatase 129 H D (39-117) U/L Total Protein 8.2 H (6.5-8.0) g/dL Albumin 4.6 (3.5-5.0) g/dL Lipase 17 (8-78) U/L Urine Color Yellow Urine Appearance Hazy Urine pH 6.5 (5.0-9.0) Ur Specific Britt 1.020 (1.005-1.025) Urine Protein Negative (Neg-Trace) mg/dL Urine Glucose (UA) Negative (Negative) mg/dL Urine Ketones Negative (Negative) mg/dL Urine Blood Trace (Negative) Urine Nitrite Positive H (Negative) Ur Leukocyte Esterase Negative (Negative) Urine RBC 0-2 (0-2) /HPF Urine WBC 0-5 (0-5) /HPF Ur Squamous Epith Cells 3-5 (0-2) /HPF Urine Bacteria Trace (None Seen) Hyaline Casts 0-2 (0-2) /LPF Urine Test (NEGATIVE) 06/11/22 Range/Units 15:06 WBC (4.8-10.8) X10*3/uL RBC (4.20-5.50) X10*6/uL Hgb (12.0-16.0) g/dl Hct (37.0-47.0) % MCV (80.0-98.0) fL MCH (27.0-33.0) pg MCHC (31.0-35.0) g/dl RDW (11.0-16.0) % Plt Count (160-400) X10*3/uL MPV (9.4-12.3) fL Immature Gran % (Auto) (0.0-0.4) % Neut % (Auto) (45-73) % Lymph % (Auto) (20-40) % [place] % (Auto) (2-11) % Eos % (Auto) (0-4) % Baso % (Auto) (0-2) % Lymph # (Auto) (1.2-4.9) X10*3/uL [place] # (Auto) (0.1-1.2) X10*3/uL Eos # (Auto) (0.0-0.4) X10*3/uL Baso # (Auto) (0.0-0.2) X10*3/uL Abs Immat Gran (auto) (0.00-0.03) X10*3/uL Absolute Neuts (auto) (2.0-8.3) x10*3/uL Absolute Nucleated RBC (0.0-0.012) X10*3/uL Nucleated RBC % (auto) (0.0-0.2) /100WBC Sodium (135-145) mmol/L Potassium (3.3-5.1) mmol/L Chloride (96-108) mmol/L Carbon Dioxide (22-29) mmol/L Anion Gap (12-20) BUN (9-16) mg/dL Creatinine (0.5-1.4) mg/dL Estim Creat Clear Calc Estimated GFR Random Glucose (60-115) mg/dL Calcium (8.4-10.2) mg/dL Total Bilirubin (0.0-1.0) mg/dL Direct Bilirubin (0.0-0.5) mg/dL AST (5-31) U/L ALT (0-31) U/L Alkaline Phosphatase (39-117) U/L Total Protein (6.5-8.0) g/dL Albumin (3.5-5.0) g/dL Lipase (8-78) U/L Urine Color Urine Appearance Urine pH (5.0-9.0) Ur Specific Britt (1.005-1.025) Urine Protein (Neg-Trace) mg/dL Urine Glucose (UA) (Negative) mg/dL Urine Ketones (Negative) mg/dL Urine Blood (Negative) Urine Nitrite (Negative) Ur Leukocyte Esterase (Negative) Urine RBC (0-2) /HPF Urine WBC (0-5) /HPF Ur Squamous Epith Cells (0-2) /HPF Urine Bacteria (None Seen) Hyaline Casts (0-2) /LPF Urine Test NEGATIVE (NEGATIVE) Discharge Plan Discharge Clinical Impression: Abdominal pain, UTI (urinary tract infection) Patient Disposition: Home, Self-Care Instructions: Urinary Tract Infection in Women (ED), Abdominal Pain (ED) Additional Instructions: Your CT scan came back normal. The ultrasounds came back normal. You will be discharged with antibiotic for urinary tract infection. You will be discharged with pain medication. Please follow-up with your primary care provider. Return to the ED for any worsening abdominal pain, chest pain, shortness of breath, dysuria, hematuria, flank pain, fever, chills, vaginal bleeding, vaginal discharge, or any other concerning symptoms. Prescriptions: New cephalexin 500 mg capsule 500 mg PO QID 7 Days Qty: 28 0RF oxycodone 5 mg capsule 5 mg PO TID PRN (Reason: pain) 3 Days Qty: 9 0RF Rx Instructions: Partial Fill upon patient request. No Action Afrin (oxymetazoline) 0.05 % mist 2 spray intranasal Q12H PRN (Reason: nasal congestion) 3 Days Qty: 15 0RF loratadine [Allergy Relief (loratadine)] 10 mg tablet 10 mg PO DAILY Qty: 30 0RF albuterol sulfate [ProAir HFA] 90 mcg/actuation HFA aerosol inhaler 2 puff PO Q4-6H PRN (Reason: Shortness Of Breath) montelukast [Singulair] 10 mg tablet 10 mg PO DAILY albuterol sulfate 2.5 mg/0.5 mL solution for nebulization 5 mg inhalation QID (DME) lancets [TRUEplus Lancets] 33 gauge misc See Rx Instructions Not Applicable DAILY Qty: 100 Rx Instructions: As directed (DME) FreeStyle Lite Strips Strip See Rx Instructions Not Applicable DAILY Qty: 10 Rx Instructions: As directed ascorbic acid (vitamin C) 1,000 mg tablet 1 g PO DAILY 90 Days Qty: 90 1RF cranberry 400 mg capsule 400 mg PO DAILY 30 Days Qty: 30 3RF Rx Instructions: administer with a meal oxycodone 5 mg capsule 5 mg PO Q12H PRN (Reason: back pain) omeprazole 40 mg capsule,delayed release(DR/EC) 40 mg PO BID Stand Alone Forms: Work/School Release Print Language: Gabonese
[2022-06-11] MEDS: HYDROmorphone HCl 0.5 MG/0.5 ML SYRINGE IVPUSH (20:15)
--- NOTE | 2022-06-11 21:12 | PC.NURSE ---
pt medicated according to KAREN. promethazine 25mg not available in emc or main ed. pharmacy called to bring down creating delay in administration of medication
--- NOTE | 2022-06-11 21:21 | PC.NURSE ---
pt having episode of N/V after PO med administration. Jasvir JACOBS made aware. new orders placed
[2022-06-11] MEDS: ondansetron HCL 4 MG/2 ML VIAL IVPUSH (21:26)
[2022-06-11] MEDS: iohexoL 350 MG/ML 100 ML INFUS..BTL IV (21:46)
[2022-06-11 22:30] VITALS: BP 108/66; PULSE 65; RESP 18; O2SAT 98
[2022-06-11] MEDS: 0.9 % Sodium Chloride 1,000 ML 999 ML IV (22:35)
--- NOTE | 2022-06-11 23:37 | PC.NURSE ---
fluids started on pt as well as CT NG collection order by Jasvir JACOBS causing delay in discharge.
[2022-06-11] MEDS: cefTRIAXone sodium 500 MG, Lidocaine HCl 1 % MPF 1 ML IM (23:56)
[2022-06-12 13:00] LABS: CT PCR NOT DETECTED (Not Detect.); NG PCR NOT DETECTED (Not Detect.)
== END 2022-06-12 00:07 | disposition home or self-care (01) ==
PROVIDERS: Physician Assistant; Emergency Provider Internal Medicine; PCP Internal Medicine
DX: N39.0 Urinary tract infection, site not specified (principal); R10.11 Right upper quadrant pain; R10.31 Right lower quadrant pain; Z79.899 Other long term (current) drug therapy; Z87.891 Personal history of nicotine dependence
CPT/HCPCS: 36415; 74177; 76705; 76775; 80048; 80076; 81001; 81025; 83690; 85025; 87086; 87491; 87591; 96361; 96372; 96374; 96375; 99284; J0696; J1170; J2405; Q9967

== ENCOUNTER 2022-12-13 17:07 | Emergency (ER) | payer MEDICAID, SELFPAY ==
--- NOTE | ~2022-12-13 | CT_ITS ---
EXAMINATION: CT ABDOMEN AND PELVIS WITHOUT CONTRAST CLINICAL INFORMATION: Right flank pain. COMPARISON: 06/11/2022 TECHNIQUE: Multidetector volumetric imaging was performed from the superior aspect of the liver through the pubic symphysis. Sagittal and coronal reformatted images were obtained on the technologist's workstation. This CT examination was performed using dose optimization techniques as appropriate, variously including the following: *Automated exposure control *Adjustment of mA and/or kV according to patient size (this includes techniques or standardized protocols for targeted exams where dose is matched to indication/reason for exam; i.e. extremities or head) *Use of iterative reconstruction technique DLP: 466 mGy-cm FINDINGS: LUNG BASES: The visualized lung bases are unremarkable. LIVER, GALLBLADDER, AND BILIARY TREE: Diffuse hepatic hypoattenuation is consistent with steatosis. There is focal fatty sparing around the gallbladder fossa. The gallbladder is unremarkable with no evidence of radiopaque gallstones, gallbladder wall thickening, or obvious pericholecystic inflammatory changes. PANCREAS: Unremarkable. SPLEEN: Unremarkable. ADRENAL GLANDS: Unremarkable. KIDNEYS AND URETERS: The kidneys are normal in size, shape, and attenuation. No hydronephrosis, hydroureter, or calculi seen. No perinephric stranding. BLADDER: Unremarkable. GASTROINTESTINAL TRACT: Small sliding-type hiatal hernia. Stomach, small bowel, and colon are normal in caliber. Appendix is normal. No intraperitoneal free air or free fluid. ABDOMINAL WALL: Postsurgical changes of prior midline ventral abdominal surgery. No superimposed hernias. LYMPH NODES: Normal. VASCULAR: Unremarkable. PELVIC VISCERA: Truncated appearance of the uterus is again most consistent with supracervical hysterectomy. No adnexal lesions are identified. OSSEOUS STRUCTURES: No acute fracture or malalignment. Moderate facet arthropathy at L4-L5. SI joints are unremarkable. CT/CT abdomen pelvis wo IV con IMPRESSION: 1. No acute intra-abdominal or intrapelvic abnormalities. No nephrolithiasis or evidence of obstructive uropathy. 2. Hepatic steatosis. 3. Small sliding-type hiatal hernia. Fleischner guidelines were followed.
--- NOTE | 2022-12-13 17:36 | ED.GENADULT ---
HPI - General Adult General Chief complaint: Urogenital-Female Stated complaint: R Body pain back to front, sharp pain Time Seen by Provider: 12/13/22 20:01 History of Present Illness HPI narrative: Please see note from the note from 20:08 Related Data Home Medications Medication Instructions Recorded Confirmed albuterol sulfate 2.5 mg/0.5 mL 5 mg inhalation QID 05/17/20 02/08/22 solution for nebulization montelukast 10 mg tablet 10 mg PO DAILY 05/17/20 02/08/22 (Singulair) omeprazole 40 mg capsule,delayed 40 mg PO BID 05/24/21 02/08/22 release oxycodone 5 mg capsule 5 mg PO Q12H PRN back pain 05/24/21 02/08/22 blood sugar diagnostic (FreeStyle #10 ea 07/02/21 02/08/22 Lite Strips) lancets 33 gauge (TRUEplus Lancets) #100 ea 07/02/21 02/08/22 albuterol sulfate 90 mcg/actuation 2 puff PO Q4-6H PRN Shortness Of 12/24/21 02/08/22 aerosol inhaler (ProAir HFA) Breath Previous Rx's Medication Instructions Recorded ascorbic acid (vitamin C) 1,000 mg 1 g PO DAILY 90 days #90 tabs 07/02/21 tablet cranberry 400 mg capsule 400 mg PO DAILY 30 days #30 caps 07/02/21 loratadine 10 mg tablet (Allergy 10 mg PO DAILY #30 tabs 12/22/21 Relief (loratadine)) oxymetazoline 0.05 % nasal mist 2 spray intranasal Q12H PRN nasal 12/22/21 (Afrin (oxymetazoline)) congestion 3 days #15 mL cephalexin 500 mg capsule 500 mg PO QID 7 days #28 caps 06/11/22 doxycycline hyclate 100 mg capsule 100 mg PO BID 7 days #14 caps 06/11/22 oxycodone 5 mg capsule 5 mg PO TID PRN pain 3 days #9 caps 06/11/22 Allergies Allergy/AdvReac Type Severity Reaction Status Date / Time levofloxacin [From Levaquin] Allergy Intermediate INTERACTED Verified 02/08/22 14:13 W/ANTI DEPRESSANT morphine [MORPHINE] Allergy Intermediate ITCHING, Verified 02/08/22 14:13 HIVES trazodone [TRAZODONE] Allergy Mild TACHYCARDIA Verified 02/08/22 14:13 amitriptyline Allergy Unknown Unknown Verified 02/08/22 14:13 citalopram Allergy Unknown Unknown Verified 02/08/22 14:13 escitalopram Allergy Unknown Unknown Verified 02/08/22 14:13 ibuprofen Allergy Unknown Unknown Verified 02/08/22 14:13 ketorolac Allergy Unknown Unknown Verified 02/08/22 14:13 sertraline Allergy Unknown Unknown Verified 02/08/22 14:13 Sulfa (Sulfonamide Allergy Unknown Unknown Verified 02/08/22 14:13 Antibiotics) topiramate Allergy Unknown Unknown Verified 02/08/22 14:13 trimethoprim Allergy Unknown Unknown Verified 02/08/22 14:13 zolpidem Allergy Unknown Unknown Verified 02/08/22 14:13 NSAIDS (Non-Steroidal AdvReac Severe HYPEREMESIS Verified 02/08/22 14:13 Anti-Inflamma [NSAIDS (NON-STEROIDAL ANTI-INFLAMMA] adhesive tape AdvReac Blister Verified 02/08/22 14:13 From Celexa Allergy Intermediate INTERACTS Uncoded 02/08/22 14:13 W/LEVAQUIN ANTIDEPRESENT Allergy Unknown Unknown Uncoded 02/08/22 14:13 Sulfamethoxazole Allergy Unknown Unknown Uncoded 02/08/22 14:13 toradol Allergy Unknown Unknown Uncoded 02/08/22 14:13 From Ambien AdvReac Severe TACHYCARDIA Uncoded 02/08/22 14:13 From Ultram AdvReac Severe TACHYCARDIA Uncoded 02/08/22 14:13 From ZOLOFT AdvReac Severe TACHYCARDIA Uncoded 02/08/22 14:13 From TORADOL AdvReac Mild STOMACH Uncoded 02/08/22 14:13 UPSET PMFSH Past Medical History Medical History Adhesive capsulitis of right shoulder Asthma Fibromyalgia Hepatic steatosis Migraines Recurrent UTI Unspecified internal derangement of unspecified knee Surgical History History of left oophorectomy History of partial hysterectomy Previous section Family History Family History (Updated 02/08/22 @ 14:11 by Audelia Moralse CMA) Father No problems noted. Mother No problems noted. Maternal Aunt Breast cancer Paternal Uncle Cancer Social History Social History (Updated 02/08/22 @ 14:12 by Audelia Morales CMA) Household Members: None Housing: Apartment Are you a primary care nurse rn to a significant other at home: No Do you presently have visiting nurse or other home services: No Alcohol intake: current Alcohol intake frequency: holidays/special occasions only Patient Tobacco Use Status: Former Tobacco user Tobacco use type: Cigarette Smoked in Last 30 Days: No Second Hand Smoke Exposure: No Use of substances other than those prescribed or required for medical reasons: Yes Substance Use Type: Marijuana Advance Directives: No Advance Directives Information Provided: Yes Patient : No service: No Current occupational status: unemployed 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 Patient is a 47 year old assigned female at presenting to the emergency department with flank pain. Labs and urine ordered. Patient placed back in the waiting room pending room availability and results. Please see note completed by Dr. Coulter for this same visit. Patient ultimately eloped. Medications Administered Discontinued Medications Generic Name Dose Route Start Last Admin Trade Name Denisha PRN Reason Stop Dose Admin Acetaminophen 975 mg 12/13/22 20:27 12/13/22 20:38 Acetaminophen 325 Mg Tablet PO 12/13/22 20:28 Not Given ONCE ONE Ondansetron HCl 4 mg 12/13/22 20:07 12/13/22 20:38 Ondansetron Odt 4 Mg Tab.Rapdis TRANSLINGU 12/13/22 20:08 Not Given ONCE ONE Tramadol HCl 50 mg 12/13/22 20:07 12/13/22 20:25 Tramadol Hcl 50 Mg Tablet PO 12/13/22 20:08 Not Given ONCE ONE Medical Decision Making Lab Data 12/13/22 17:50 12/13/22 17:50 Labs: Lab Results 12/13/22 12/13/22 12/13/22 Range/Units 17:50 17:50 18:33 WBC 13.8 H (4.8-10.8) X10*3/uL RBC 4.39 (4.20-5.50) X10*6/uL Hgb 11.9 L (12.0-16.0) g/dl Hct 36.7 L (37.0-47.0) % MCV 83.6 (80.0-98.0) fL MCH 27.1 (27.0-33.0) pg MCHC 32.4 (31.0-35.0) g/dl RDW 14.1 (11.0-16.0) % Plt Count 434 H (160-400) X10*3/uL MPV 9.2 L (9.4-12.3) fL Immature Gran % (Auto) 0.3 (0.0-0.4) % Neut % (Auto) 70.6 (45-73) % Lymph % (Auto) 21.7 (20-40) % [place] % (Auto) 5.3 (2-11) % Eos % (Auto) 1.2 (0-4) % Baso % (Auto) 0.9 (0-2) % Lymph # (Auto) 3.0 (1.2-4.9) X10*3/uL [place] # (Auto) 0.7 (0.1-1.2) X10*3/uL Eos # (Auto) 0.2 (0.0-0.4) X10*3/uL Baso # (Auto) 0.1 (0.0-0.2) X10*3/uL Abs Immat Gran (auto) 0.04 H (0.00-0.03) X10*3/uL Absolute Neuts (auto) 9.8 H (2.0-8.3) x10*3/uL Absolute Nucleated RBC 0.000 (0.0-0.012) X10*3/uL Nucleated RBC % (auto) 0.0 (0.0-0.2) /100WBC Sodium 141 (135-145) mmol/L Potassium 4.0 (3.3-5.1) mmol/L Chloride 106 (96-108) mmol/L Carbon Dioxide 27 (22-29) mmol/L Anion Gap 12 (12-20) BUN 8 L (9-16) mg/dL Creatinine 0.77 (0.5-1.4) mg/dL Estim Creat Clear Calc 85.1 Estimated GFR > 60 Random Glucose 104 (60-115) mg/dL Calcium 9.1 (8.4-10.2) mg/dL Magnesium 2.0 (1.6-2.6) mg/dL Total Bilirubin 0.3 (0.0-1.0) mg/dL AST 20 (5-31) U/L ALT 23 (0-31) U/L Alkaline Phosphatase 101 (39-117) U/L Total Protein 7.3 (6.5-8.0) g/dL Albumin 4.0 (3.5-5.0) g/dL Beta HCG, Quant < 2 mIU/mL Urine Color Yellow Urine Appearance Clear Urine pH 6.0 (5.0-9.0) Ur Specific [place] 1.020 (1.005-1.025) Urine Protein Negative (Neg-Trace) mg/dL Urine Glucose (UA) Negative (Negative) mg/dL Urine Ketones Negative (Negative) mg/dL Urine Blood Trace H (Negative) Urine Nitrite Negative (Negative) Ur Leukocyte Esterase Negative (Negative) Urine RBC 3-5 H (0-2) /HPF Urine WBC 0-5 (0-5) /HPF Ur Squamous Epith Cells 3-5 (0-2) /HPF Urine Bacteria None Seen (None Seen) Hyaline Casts 0-2 (0-2) /LPF Urine Opiates Screen (Not Detect) Urine Fentanyl Screen (Not Detect) Ur Barbiturates Screen (Not Detect) Ur Phencyclidine Scrn (Not Detect) Ur Amphetamines Screen (Not Detect) U Benzodiazepines Scrn (Not Detect) Urine Cocaine Screen (Not Detect) U Marijuana (THC) Screen (Not Detect) 12/13/22 Range/Units 18:33 WBC (4.8-10.8) X10*3/uL RBC (4.20-5.50) X10*6/uL Hgb (12.0-16.0) g/dl Hct (37.0-47.0) % MCV (80.0-98.0) fL MCH (27.0-33.0) pg MCHC (31.0-35.0) g/dl RDW (11.0-16.0) % Plt Count (160-400) X10*3/uL MPV (9.4-12.3) fL Immature Gran % (Auto) (0.0-0.4) % Neut % (Auto) (45-73) % Lymph % (Auto) (20-40) % [place] % (Auto) (2-11) % Eos % (Auto) (0-4) % Baso % (Auto) (0-2) % Lymph # (Auto) (1.2-4.9) X10*3/uL [place] # (Auto) (0.1-1.2) X10*3/uL Eos # (Auto) (0.0-0.4) X10*3/uL Baso # (Auto) (0.0-0.2) X10*3/uL Abs Immat Gran (auto) (0.00-0.03) X10*3/uL Absolute Neuts (auto) (2.0-8.3) x10*3/uL Absolute Nucleated RBC (0.0-0.012) X10*3/uL Nucleated RBC % (auto) (0.0-0.2) /100WBC Sodium (135-145) mmol/L Potassium (3.3-5.1) mmol/L Chloride (96-108) mmol/L Carbon Dioxide (22-29) mmol/L Anion Gap (12-20) BUN (9-16) mg/dL Creatinine (0.5-1.4) mg/dL Estim Creat Clear Calc Estimated GFR Random Glucose (60-115) mg/dL Calcium (8.4-10.2) mg/dL Magnesium (1.6-2.6) mg/dL Total Bilirubin (0.0-1.0) mg/dL AST (5-31) U/L ALT (0-31) U/L Alkaline Phosphatase (39-117) U/L Total Protein (6.5-8.0) g/dL Albumin (3.5-5.0) g/dL Beta HCG, Quant mIU/mL Urine Color Urine Appearance Urine pH (5.0-9.0) Ur Specific [place] (1.005-1.025) Urine Protein (Neg-Trace) mg/dL Urine Glucose (UA) (Negative) mg/dL Urine Ketones (Negative) mg/dL Urine Blood (Negative) Urine Nitrite (Negative) Ur Leukocyte Esterase (Negative) Urine RBC (0-2) /HPF Urine WBC (0-5) /HPF Ur Squamous Epith Cells (0-2) /HPF Urine Bacteria (None Seen) Hyaline Casts (0-2) /LPF Urine Opiates Screen Not Detected (Not Detect) Urine Fentanyl Screen Not Detected (Not Detect) Ur Barbiturates Screen Not Detected (Not Detect) Ur Phencyclidine Scrn Not Detected (Not Detect) Ur Amphetamines Screen Not Detected (Not Detect) U Benzodiazepines Scrn Not Detected (Not Detect) Urine Cocaine Screen Not Detected (Not Detect) U Marijuana (THC) Screen POSITIVE H (Not Detect) Discharge Plan Discharge Clinical Impression: Flank pain Patient Disposition: Elopement Prescriptions: No Action cephalexin 500 mg capsule 500 mg PO QID 7 Days Qty: 28 0RF oxycodone 5 mg capsule 5 mg PO TID PRN (Reason: pain) 3 Days Qty: 9 0RF Rx Instructions: Partial Fill upon patient request. doxycycline hyclate 100 mg capsule 100 mg PO BID 7 Days Qty: 14 0RF Afrin (oxymetazoline) 0.05 % mist 2 spray intranasal Q12H PRN (Reason: nasal congestion) 3 Days Qty: 15 0RF loratadine [Allergy Relief (loratadine)] 10 mg tablet 10 mg PO DAILY Qty: 30 0RF albuterol sulfate [ProAir HFA] 90 mcg/actuation HFA aerosol inhaler 2 puff PO Q4-6H PRN (Reason: Shortness Of Breath) montelukast [Singulair] 10 mg tablet 10 mg PO DAILY albuterol sulfate 2.5 mg/0.5 mL solution for nebulization 5 mg inhalation QID (DME) lancets [TRUEplus Lancets] 33 gauge misc See Rx Instructions Not Applicable DAILY Qty: 100 Rx Instructions: As directed (DME) FreeStyle Lite Strips Strip See Rx Instructions Not Applicable DAILY Qty: 10 Rx Instructions: As directed ascorbic acid (vitamin C) 1,000 mg tablet 1 g PO DAILY 90 Days Qty: 90 1RF cranberry 400 mg capsule 400 mg PO DAILY 30 Days Qty: 30 3RF Rx Instructions: administer with a meal oxycodone 5 mg capsule 5 mg PO Q12H PRN (Reason: back pain) omeprazole 40 mg capsule,delayed release(DR/EC) 40 mg PO BID Discharge Date/Time: 12/13/22 22:02
[2022-12-13 17:38] VITALS: BP 112/49; PULSE 81; RESP 18; TEMP 36.1; O2SAT 98; BMI 29.3
[2022-12-13 17:54] LABS: MANUAL DIFF FLAG NO
[2022-12-13 17:55] LABS: Basophils Absolute Auto 0.1 X10*3/uL (0.0-0.2); Basophils Percent Auto 0.9 % (0-2); Eosinophils Absolute Auto 0.2 X10*3/uL (0.0-0.4); Eosinophils Percent Auto 1.2 % (0-4); Hematocrit 36.7 % (37.0-47.0); Hemoglobin 11.9 g/dl (12.0-16.0); Imm Gran Abs Auto 0.04 X10*3/uL (0.00-0.03); Imm Gran Pct Auto 0.3 % (0.0-0.4); Lymphocytes Percent Auto 21.7 % (20-40); Mean Corpuscular HGB Conc 32.4 g/dl (31.0-35.0); Mean Corpuscular Hemoglobin 27.1 pg (27.0-33.0); Mean Corpuscular Volume 83.6 fL (80.0-98.0); Mean Platelet Volume 9.2 fL (9.4-12.3); Monocytes Absolute Auto 0.7 X10*3/uL (0.1-1.2); Monocytes Percent Auto 5.3 % (2-11); Neutrophils Absolute Auto 9.8 x10*3/uL (2.0-8.3); Neutrophils Percent Auto 70.6 % (45-73); Platelet Count 434 X10*3/uL (160-400); Red Blood Count 4.39 X10*6/uL (4.20-5.50); Red Cell Distribution Width 14.1 % (11.0-16.0); White Blood Count 13.8 X10*3/uL (4.8-10.8)
[2022-12-13 18:00] VITALS: BP 125/64; PULSE 82; RESP 16; TEMP 36.6; O2SAT 98
[2022-12-13 18:19] LABS: Alanine Aminotransferase 23 U/L (0-31); Alkaline Phosphatase 101 U/L (39-117); Anion Gap 12 (12-20); Aspartate Amino Transferase 20 U/L (5-31); Bilirubin Total 0.3 mg/dL (0.0-1.0); Blood Urea Nitrogen 8 mg/dL (9-16); Calcium 9.1 mg/dL (8.4-10.2); Carbon Dioxide 27 mmol/L (22-29); Chloride 106 mmol/L (96-108); Creatinine Clr Calc Pharmacy 85.1; Estimated Glomerular Filt Rate > 60; Glucose Random 104 mg/dL (60-115); HCG Quantitative < 2 mIU/mL; Sodium 141 mmol/L (135-145); Total Protein 7.3 g/dL (6.5-8.0)
--- NOTE | 2022-12-13 18:33 | MHC.EDTECH ---
PATIENT URINE SAMPLE COLLECTED AND SENT TO LAB .
[2022-12-13 18:43] LABS: Appearance Urine Clear; Color Urine Yellow; Glucose Urine UA Negative (Negative); Leukocyte Esterase Urine Negative (Negative); Nitrite Urine Negative (Negative); UMIC TRIGGER UACC YES; Urine Blood Trace (Negative); Urine Ketones Negative (Negative); Urine Protein Negative (Neg-Trace)
[2022-12-13 18:46] LABS: Bacteria Urine None Seen (None Seen); Hyaline Casts Urine 0-2 /LPF (0-2); WBC Urine 0-5 /HPF (0-5)
[2022-12-13 20:00] VITALS: BP 133/77; PULSE 84; RESP 16; TEMP 36.8; O2SAT 98
--- NOTE | 2022-12-13 20:08 | ED_ITS ---
HPI - General Adult General Chief complaint: Urogenital-Female Stated complaint: R Body pain back to front, sharp pain Time Seen by Provider: 12/13/22 20:01 Source: patient Mode of arrival: ambulatory Limitations: no limitations History of Present Illness HPI narrative: Patient comes to the emergency room complaining of right-sided flank pain for almost 12 hours. Patient eyes hematuria or dysuria. Patient complaining of nausea, no vomiting or diarrhea Related Data Home Medications Medication Instructions Recorded Confirmed albuterol sulfate 2.5 mg/0.5 mL 5 mg inhalation QID 05/17/20 02/08/22 solution for nebulization montelukast 10 mg tablet 10 mg PO DAILY 05/17/20 02/08/22 (Singulair) omeprazole 40 mg capsule,delayed 40 mg PO BID 05/24/21 02/08/22 release oxycodone 5 mg capsule 5 mg PO Q12H PRN back pain 05/24/21 02/08/22 blood sugar diagnostic (FreeStyle #10 ea 07/02/21 02/08/22 Lite Strips) lancets 33 gauge (TRUEplus Lancets) #100 ea 07/02/21 02/08/22 albuterol sulfate 90 mcg/actuation 2 puff PO Q4-6H PRN Shortness Of 12/24/21 02/08/22 aerosol inhaler (ProAir HFA) Breath Previous Rx's Medication Instructions Recorded ascorbic acid (vitamin C) 1,000 mg 1 g PO DAILY 90 days #90 tabs 07/02/21 tablet cranberry 400 mg capsule 400 mg PO DAILY 30 days #30 caps 07/02/21 loratadine 10 mg tablet (Allergy 10 mg PO DAILY #30 tabs 12/22/21 Relief (loratadine)) oxymetazoline 0.05 % nasal mist 2 spray intranasal Q12H PRN nasal 12/22/21 (Afrin (oxymetazoline)) congestion 3 days #15 mL cephalexin 500 mg capsule 500 mg PO QID 7 days #28 caps 06/11/22 doxycycline hyclate 100 mg capsule 100 mg PO BID 7 days #14 caps 06/11/22 oxycodone 5 mg capsule 5 mg PO TID PRN pain 3 days #9 caps 06/11/22 Allergies Allergy/AdvReac Type Severity Reaction Status Date / Time levofloxacin [From Levaquin] Allergy Intermediate INTERACTED Verified 02/08/22 14:13 W/ANTI DEPRESSANT morphine [MORPHINE] Allergy Intermediate ITCHING, Verified 02/08/22 14:13 HIVES trazodone [TRAZODONE] Allergy Mild TACHYCARDIA Verified 02/08/22 14:13 amitriptyline Allergy Unknown Unknown Verified 02/08/22 14:13 citalopram Allergy Unknown Unknown Verified 02/08/22 14:13 escitalopram Allergy Unknown Unknown Verified 02/08/22 14:13 ibuprofen Allergy Unknown Unknown Verified 02/08/22 14:13 ketorolac Allergy Unknown Unknown Verified 02/08/22 14:13 sertraline Allergy Unknown Unknown Verified 02/08/22 14:13 Sulfa (Sulfonamide Allergy Unknown Unknown Verified 02/08/22 14:13 Antibiotics) topiramate Allergy Unknown Unknown Verified 02/08/22 14:13 trimethoprim Allergy Unknown Unknown Verified 02/08/22 14:13 zolpidem Allergy Unknown Unknown Verified 02/08/22 14:13 NSAIDS (Non-Steroidal AdvReac Severe HYPEREMESIS Verified 02/08/22 14:13 Anti-Inflamma [NSAIDS (NON-STEROIDAL ANTI-INFLAMMA] adhesive tape AdvReac Blister Verified 02/08/22 14:13 From Celexa Allergy Intermediate INTERACTS Uncoded 02/08/22 14:13 W/LEVAQUIN ANTIDEPRESENT Allergy Unknown Unknown Uncoded 02/08/22 14:13 Sulfamethoxazole Allergy Unknown Unknown Uncoded 02/08/22 14:13 toradol Allergy Unknown Unknown Uncoded 02/08/22 14:13 From Ambien AdvReac Severe TACHYCARDIA Uncoded 02/08/22 14:13 From Ultram AdvReac Severe TACHYCARDIA Uncoded 02/08/22 14:13 From ZOLOFT AdvReac Severe TACHYCARDIA Uncoded 02/08/22 14:13 From TORADOL AdvReac Mild STOMACH Uncoded 02/08/22 14:13 UPSET Review of Systems Review of Systems: Constitutional : No Weight loss, No Fever, No Chills, No Night Sweats, No Fa tigue, No Malaise ENT/Mouth : No Hearing loss, No Ear Pain, No Nasal Congestion, No Sinus Pain, No Hoarseness, No sore throat, No Rhinorrhea, No Swallowing Difficulty Eyes: No Eye Pain, No Swelling, No Redness, No Foreign Body, No Discharge, No Vision Changes Cardiovascular : No Chest Pain, No SOB, No Dyspnea on Exertion, No Orthopnea, No Edema, No Palpitations Respiratory : No Cough, No Sputum, No Wheezing, No Smoke Exposure, No Dyspnea Gastrointestinal : No Nausea, No Vomiting, No Diarrhea, No Constipation, No abdominal Pain, No Hematochezia, No Melena Genitourinary : no irregular bleeding, No Dysuria, No Urinary Frequency, No Hematuria, No Urinary Incontinence, No Urgency, burning of right-sided Flank Pain, No Urinary Flow Changes, No Hesitancy Musculoskeletal : No joint pain, No Myalgias, No Joint Swelling Skin : No Skin Lesions, No rash Neuro : No Weakness, No Numbness, No Paresthesias, No Loss of Consciousness, No Dizziness, No Headache Psych : No Anxiety/Panic, No Depression, No SI/HI/AH/VH, No Social Issues, Heme/Lymph: No Bruising, No Bleeding,No Lymphadenopathy Endocrine : No Polyuria, No Polydipsia, No Temperature Intolerance PMFSH Past Medical History Medical History Adhesive capsulitis of right shoulder Asthma Fibromyalgia Hepatic steatosis Migraines Recurrent UTI Unspecified internal derangement of unspecified knee Surgical History History of left oophorectomy History of partial hysterectomy Previous section Family History Family History (Updated 02/08/22 @ 14:11 by Audleia Morales CMA) Father No problems noted. Mother No problems noted. Maternal Aunt Breast cancer Paternal Uncle Cancer Social History Social History (Updated 02/08/22 @ 14:12 by Audelia Morales CMA) Household Members: None Housing: Apartment Are you a primary healthcare facility administrator to a significant other at home: No Do you presently have visiting nurse or other home services: No Alcohol intake: current Alcohol intake frequency: holidays/special occasions only Patient Tobacco Use Status: Former Tobacco user Tobacco use type: Cigarette Smoked in Last 30 Days: No Second Hand Smoke Exposure: No Use of substances other than those prescribed or required for medical reasons: Yes Substance Use Type: Marijuana Advance Directives: No Advance Directives Information Provided: Yes Patient : No service: No Current occupational status: unemployed 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 Oriented X3. No acute distress. Eyes: Pupils equal, round and reactive to light. ENT: Pharynx normal. Neck: Normal inspection. Neck supple. No lymph nodes noted. No crepitus CVS: Normal heart rate and rhythm. Pulses normal. Normal S1 and S2 Respiratory: No respiratory distress. Breath sounds normal. No Wheezing. No rales Abdomen: Soft and nontender. No rigidity. No distention. Right flank pain Skin: Skin warm and dry. Normal skin color. Normal skin turgor. Extremities: No lower extremity edema. No Lacerations. No Rash Neuro: Oriented X 3. No motor deficit. No sensory deficit. Moving all extremities. No slurred speech. CN 2 through 12 grossly intact Psych: calm, cooperative, teary Course Course Course Narrative: -Patient's labs and imaging pending -patient was offered p.o. tramadol and Zofran -I was informed by the patient's nurse that patient declined tramadol and Zofran. I offered to the patient ibuprofen, patient states that she is allergic, she vomits, antiemetic was offered, patient declined. I offered to the patient Tylenol, patient declined. - [place] PAT was checked, the patient has a prescription for oxycodone from December 05 that should last her for the next 28 days. -I was informed by the patient's nurse that the patient walked out, did not wait for CT scan results. Medications Administered Discontinued Medications Generic Name Dose Route Start Last Admin Trade Name Freq PRN Reason Stop Dose Admin Acetaminophen 975 mg 12/13/22 20:27 12/13/22 20:38 Acetaminophen 325 Mg Tablet PO 12/13/22 20:28 Not Given ONCE ONE Ondansetron HCl 4 mg 12/13/22 20:07 12/13/22 20:38 Ondansetron Odt 4 Mg Tab.Rapdis TRANSLINGU 12/13/22 20:08 Not Given ONCE ONE Tramadol HCl 50 mg 12/13/22 20:07 12/13/22 20:25 Tramadol Hcl 50 Mg Tablet PO 12/13/22 20:08 Not Given ONCE ONE Medical Decision Making Lab Data 12/13/22 17:50 12/13/22 17:50 Labs: Lab Results 12/13/22 12/13/22 12/13/22 Range/Units 17:50 17:50 18:33 WBC 13.8 H (4.8-10.8) X10*3/uL RBC 4.39 (4.20-5.50) X10*6/uL Hgb 11.9 L (12.0-16.0) g/dl Hct 36.7 L (37.0-47.0) % MCV 83.6 (80.0-98.0) fL MCH 27.1 (27.0-33.0) pg MCHC 32.4 (31.0-35.0) g/dl RDW 14.1 (11.0-16.0) % Plt Count 434 H (160-400) X10*3/uL MPV 9.2 L (9.4-12.3) fL Immature Gran % (Auto) 0.3 (0.0-0.4) % Neut % (Auto) 70.6 (45-73) % Lymph % (Auto) 21.7 (20-40) % [place] % (Auto) 5.3 (2-11) % Eos % (Auto) 1.2 (0-4) % Baso % (Auto) 0.9 (0-2) % Lymph # (Auto) 3.0 (1.2-4.9) X10*3/uL [place] # (Auto) 0.7 (0.1-1.2) X10*3/uL Eos # (Auto) 0.2 (0.0-0.4) X10*3/uL Baso # (Auto) 0.1 (0.0-0.2) X10*3/uL Abs Immat Gran (auto) 0.04 H (0.00-0.03) X10*3/uL Absolute Neuts (auto) 9.8 H (2.0-8.3) x10*3/uL Absolute Nucleated RBC 0.000 (0.0-0.012) X10*3/uL Nucleated RBC % (auto) 0.0 (0.0-0.2) /100WBC Sodium 141 (135-145) mmol/L Potassium 4.0 (3.3-5.1) mmol/L Chloride 106 (96-108) mmol/L Carbon Dioxide 27 (22-29) mmol/L Anion Gap 12 (12-20) BUN 8 L (9-16) mg/dL Creatinine 0.77 (0.5-1.4) mg/dL Estim Creat Clear Calc 85.1 Estimated GFR > 60 Random Glucose 104 (60-115) mg/dL Calcium 9.1 (8.4-10.2) mg/dL Magnesium 2.0 (1.6-2.6) mg/dL Total Bilirubin 0.3 (0.0-1.0) mg/dL AST 20 (5-31) U/L ALT 23 (0-31) U/L Alkaline Phosphatase 101 (39-117) U/L Total Protein 7.3 (6.5-8.0) g/dL Albumin 4.0 (3.5-5.0) g/dL Beta HCG, Quant < 2 mIU/mL Urine Color Yellow Urine Appearance Clear Urine pH 6.0 (5.0-9.0) Ur Specific [place] 1.020 (1.005-1.025) Urine Protein Negative (Neg-Trace) mg/dL Urine Glucose (UA) Negative (Negative) mg/dL Urine Ketones Negative (Negative) mg/dL Urine Blood Trace H (Negative) Urine Nitrite Negative (Negative) Ur Leukocyte Esterase Negative (Negative) Urine RBC 3-5 H (0-2) /HPF Urine WBC 0-5 (0-5) /HPF Ur Squamous Epith Cells 3-5 (0-2) /HPF Urine Bacteria None Seen (None Seen) Hyaline Casts 0-2 (0-2) /LPF Urine Opiates Screen (Not Detect) Urine Fentanyl Screen (Not Detect) Ur Barbiturates Screen (Not Detect) Ur Phencyclidine Scrn (Not Detect) Ur Amphetamines Screen (Not Detect) U Benzodiazepines Scrn (Not Detect) Urine Cocaine Screen (Not Detect) U Marijuana (THC) Screen (Not Detect) 12/13/22 Range/Units 18:33 WBC (4.8-10.8) X10*3/uL RBC (4.20-5.50) X10*6/uL Hgb (12.0-16.0) g/dl Hct (37.0-47.0) % MCV (80.0-98.0) fL MCH (27.0-33.0) pg MCHC (31.0-35.0) g/dl RDW (11.0-16.0) % Plt Count (160-400) X10*3/uL MPV (9.4-12.3) fL Immature Gran % (Auto) (0.0-0.4) % Neut % (Auto) (45-73) % Lymph % (Auto) (20-40) % [place] % (Auto) (2-11) % Eos % (Auto) (0-4) % Baso % (Auto) (0-2) % Lymph # (Auto) (1.2-4.9) X10*3/uL [place] # (Auto) (0.1-1.2) X10*3/uL Eos # (Auto) (0.0-0.4) X10*3/uL Baso # (Auto) (0.0-0.2) X10*3/uL Abs Immat Gran (auto) (0.00-0.03) X10*3/uL Absolute Neuts (auto) (2.0-8.3) x10*3/uL Absolute Nucleated RBC (0.0-0.012) X10*3/uL Nucleated RBC % (auto) (0.0-0.2) /100WBC Sodium (135-145) mmol/L Potassium (3.3-5.1) mmol/L Chloride (96-108) mmol/L Carbon Dioxide (22-29) mmol/L Anion Gap (12-20) BUN (9-16) mg/dL Creatinine (0.5-1.4) mg/dL Estim Creat Clear Calc Estimated GFR Random Glucose (60-115) mg/dL Calcium (8.4-10.2) mg/dL Magnesium (1.6-2.6) mg/dL Total Bilirubin (0.0-1.0) mg/dL AST (5-31) U/L ALT (0-31) U/L Alkaline Phosphatase (39-117) U/L Total Protein (6.5-8.0) g/dL Albumin (3.5-5.0) g/dL Beta HCG, Quant mIU/mL Urine Color Urine Appearance Urine pH (5.0-9.0) Ur Specific [place] (1.005-1.025) Urine Protein (Neg-Trace) mg/dL Urine Glucose (UA) (Negative) mg/dL Urine Ketones (Negative) mg/dL Urine Blood (Negative) Urine Nitrite (Negative) Ur Leukocyte Esterase (Negative) Urine RBC (0-2) /HPF Urine WBC (0-5) /HPF Ur Squamous Epith Cells (0-2) /HPF Urine Bacteria (None Seen) Hyaline Casts (0-2) /LPF Urine Opiates Screen Not Detected (Not Detect) Urine Fentanyl Screen Not Detected (Not Detect) Ur Barbiturates Screen Not Detected (Not Detect) Ur Phencyclidine Scrn Not Detected (Not Detect) Ur Amphetamines Screen Not Detected (Not Detect) U Benzodiazepines Scrn Not Detected (Not Detect) Urine Cocaine Screen Not Detected (Not Detect) U Marijuana (THC) Screen POSITIVE H (Not Detect) Discharge Plan Discharge Clinical Impression: Flank pain Patient Disposition: Elopement Prescriptions: No Action cephalexin 500 mg capsule 500 mg PO QID 7 Days Qty: 28 0RF oxycodone 5 mg capsule 5 mg PO TID PRN (Reason: pain) 3 Days Qty: 9 0RF Rx Instructions: Partial Fill upon patient request. doxycycline hyclate 100 mg capsule 100 mg PO BID 7 Days Qty: 14 0RF Afrin (oxymetazoline) 0.05 % mist 2 spray intranasal Q12H PRN (Reason: nasal congestion) 3 Days Qty: 15 0RF loratadine [Allergy Relief (loratadine)] 10 mg tablet 10 mg PO DAILY Qty: 30 0RF albuterol sulfate [ProAir HFA] 90 mcg/actuation HFA aerosol inhaler 2 puff PO Q4-6H PRN (Reason: Shortness Of Breath) montelukast [Singulair] 10 mg tablet 10 mg PO DAILY albuterol sulfate 2.5 mg/0.5 mL solution for nebulization 5 mg inhalation QID (DME) lancets [TRUEplus Lancets] 33 gauge misc See Rx Instructions Not Applicable DAILY Qty: 100 Rx Instructions: As directed (DME) FreeStyle Lite Strips Strip See Rx Instructions Not Applicable DAILY Qty: 10 Rx Instructions: As directed ascorbic acid (vitamin C) 1,000 mg tablet 1 g PO DAILY 90 Days Qty: 90 1RF cranberry 400 mg capsule 400 mg PO DAILY 30 Days Qty: 30 3RF Rx Instructions: administer with a meal oxycodone 5 mg capsule 5 mg PO Q12H PRN (Reason: back pain) omeprazole 40 mg capsule,delayed release(DR/EC) 40 mg PO BID
--- NOTE | 2022-12-13 20:25 | PC.NURSE ---
Pt refused tramadol, stating she has an allergy but is not able to tell me what happens when she takes tramadol. PDr Marylin aware, verbal ordered 975mg tylenol PO.
--- NOTE | 2022-12-13 20:36 | PC.NURSE ---
Pt refusing tylenol, stating she is allergic. Pt is unable to tell me what happens when she takes tylenol. Pt also refusing zofran.
[2022-12-13 21:32] VITALS: BP 144/72; PULSE 96; RESP 16; TEMP 37.1; O2SAT 98
[2022-12-13 21:32] LABS: Amphetamine Screen Urine Not Detected (Not Detect); Barbiturates, Urine Not Detected (Not Detect); Benzodiazepines Screen Urine Not Detected (Not Detect); Cannabinoid Screen Urine POSITIVE (Not Detect); Cocaine Screen Urine Not Detected (Not Detect); Fentanyl, urine Not Detected (Not Detect); Opiate Screen Urine Not Detected (Not Detect); Phencyclidine Screen Urine Not Detected (Not Detect)
--- NOTE | 2022-12-13 22:01 | PC.NURSE ---
Pt walked out of ER prior to discharge paperwork being given. MD and broker in charge aware.
== END 2022-12-13 22:02 | disposition left against medical advice (07) ==
PROVIDERS: Physician Assistant Medical; Emergency Provider Emergency Medicine; PCP Internal Medicine
DX: K44.9 Diaphragmatic hernia without obstruction or gangrene (principal); R10.9 Unspecified abdominal pain; M79.10 Myalgia, unspecified site; Z79.899 Other long term (current) drug therapy; Z87.891 Personal history of nicotine dependence
CPT/HCPCS: 36415; 74176; 80053; 80307; 81001; 83735; 84702; 85025; 99284

== ENCOUNTER 2023-03-04 15:40 | Outpatient (REF) | payer MEDICAID, SELFPAY ==
[2023-03-04 16:53] LABS: Anion Gap 10 (12-20); Blood Urea Nitrogen 9 mg/dL (9-16); Calcium 9.4 mg/dL (8.4-10.2); Carbon Dioxide 27 mmol/L (22-29); Chloride 105 mmol/L (96-108); Estimated Glomerular Filt Rate > 60; Glucose Random 93 mg/dL (60-115); Potassium 4.1 mmol/L (3.3-5.1); Sodium 138 mmol/L (135-145)
[2023-03-04 17:04] LABS: Vitamin D 25-OH Total 41.3 ng/mL (>30)
== END 2023-03-04 15:41 | disposition home or self-care (01) ==
LOC: HO.HHCL 15:40
PROVIDERS: Visit Provider Internal Medicine
DX: R79.89 Other specified abnormal findings of blood chemistry (principal); G47.10 Hypersomnia, unspecified
CPT/HCPCS: 36415; 80048; 82306

== ENCOUNTER 2023-05-01 11:51 | Outpatient (REF) | payer MEDICAID, SELFPAY ==
[2023-05-01 13:24] LABS: Anion Gap 17 (12-20); Blood Urea Nitrogen 7 mg/dL (9-16); Calcium 9.6 mg/dL (8.4-10.2); Carbon Dioxide 22 mmol/L (22-29); Chloride 105 mmol/L (96-108); Estimated Glomerular Filt Rate > 60; Glucose Random 105 mg/dL (60-115); Potassium 4.2 mmol/L (3.3-5.1); Sodium 140 mmol/L (135-145)
== END 2023-05-01 11:52 | disposition home or self-care (01) ==
LOC: HO.HHCL 11:51
PROVIDERS: Visit Provider Internal Medicine
DX: R42 Dizziness and giddiness (principal)
CPT/HCPCS: 36415; 80048; 85025

== ENCOUNTER 2023-05-08 15:07 | Emergency (ER) | payer OTHER, MEDICAID, SELFPAY ==
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
[2023-05-08 15:51] VITALS: BP 104/62; BP 134/96; PULSE 85; PULSE 87; RESP 16; TEMP 36.6; O2SAT 100; O2SAT 99; BMI 28.7
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
[2023-05-08 21:24] VITALS: BP 125/73; PULSE 91; RESP 17; TEMP 36.5; O2SAT 97
--- NOTE | 2023-05-08 21:25 | MHC.EDTECH ---
this pct just assumed care of patient ,vitals taken ,pt waiting to see provider ,call lai within reach .
[2023-05-08 22:58] VITALS: BP 124/82; PULSE 92; RESP 16; TEMP 36.6; O2SAT 98
== END 2023-05-08 23:01 | disposition home or self-care (01) ==
PROVIDERS: Emergency Provider Emergency Medicine; PCP Internal Medicine
DX: S13.4XXA Sprain of ligaments of cervical spine, initial encounter (principal); V43.52XA Car driver injured in collision with other type car in traffic accident, initial encounter; M79.18 Myalgia, other site; Z87.891 Personal history of nicotine dependence; Y93.89 Activity, other specified; Y92.410 Unspecified street and highway as the place of occurrence of the external cause; Y99.9 Unspecified external cause status
CPT/HCPCS: 70450; 72100; 72125; 73502; 73562; 99283; 99284

== ENCOUNTER 2023-06-13 08:25 | Outpatient (REF) | payer OTHER, MEDICAID, SELFPAY ==
--- NOTE | ~2023-06-13 | XR_ITS ---
EXAMINATION: XR KNEE, LEFT XR KNEE AP STANDING CLINICAL INFORMATION: Pain. COMPARISON: Prior radiographs, most recently 05/08/2023. TECHNIQUE: Lateral and axial views of the left knee were obtained. AP bilateral standing view of the knees was obtained. FINDINGS: No fracture or joint effusion. Alignment is anatomic. Joint spaces are maintained. No abnormal soft tissue calcification. XR/XR knee LT 2V IMPRESSION: Normal left knee and AP bilateral standing knee radiographs.
--- NOTE | ~2023-06-13 | XR_ITS ---
EXAMINATION: XR KNEE, LEFT XR KNEE AP STANDING CLINICAL INFORMATION: Pain. COMPARISON: Prior radiographs, most recently 05/08/2023. TECHNIQUE: Lateral and axial views of the left knee were obtained. AP bilateral standing view of the knees was obtained. FINDINGS: No fracture or joint effusion. Alignment is anatomic. Joint spaces are maintained. No abnormal soft tissue calcification. XR/XR knee standing BI IMPRESSION: Normal left knee and AP bilateral standing knee radiographs.
== END 2023-06-13 08:26 | disposition home or self-care (01) ==
LOC: HO.HOSX 08:25
PROVIDERS: Visit Provider Orthopaedic Surgery
DX: M25.562 Pain in left knee (principal); M79.7 Fibromyalgia
CPT/HCPCS: 20610; 73560; 73565; 99212; J0665; J1100

== ENCOUNTER 2023-06-13 10:35 | Outpatient (AMB) | payer MEDICAID, SELFPAY ==
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
== END 2023-06-13 12:11 | disposition home or self-care (01) ==
PROVIDERS: PCP Internal Medicine; Visit Provider Orthopaedic Surgery
DX: M25.562 Pain in left knee (principal); M79.7 Fibromyalgia
CPT/HCPCS: 20610; 99214

== ENCOUNTER 2023-07-22 12:44 | Outpatient (AMB) | payer MEDICAID, SELFPAY ==
[2023-07-22 12:56] VITALS: BP 110/80; PULSE 97; O2SAT 98; BMI 32.1
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
== END 2023-07-22 13:24 | disposition home or self-care (01) ==
PROVIDERS: PCP Internal Medicine; Visit Provider Nurse Practitioner Family
DX: G47.10 Hypersomnia, unspecified (principal); R06.83 Snoring
CPT/HCPCS: 99203

== ENCOUNTER → 2023-07-22 12:44 | Outpatient (BNVA) | payer MEDICAID, SELFPAY | PROVIDERS: PCP Internal Medicine; Visit Provider Nurse Practitioner Family | DX: G47.10 Hypersomnia, unspecified (principal); R06.83 Snoring | CPT/HCPCS: 99212 ==

== ENCOUNTER → 2023-07-31 08:15 | Outpatient (REF) | payer MEDICAID, SELFPAY | LOC: HO.SL 08:15 | PROVIDERS: PCP Internal Medicine; Visit Provider Nurse Practitioner Family | DX: G47.10 Hypersomnia, unspecified (principal); R06.83 Snoring; R40.0 Somnolence | CPT/HCPCS: 95806; 95810 ==

== ENCOUNTER → 2023-07-31 08:28 | Outpatient (BNV) | payer MEDICAID, SELFPAY | PROVIDERS: PCP Internal Medicine; Visit Provider Psychiatry & Neurology Neurology | DX: R06.83 Snoring (principal) | CPT/HCPCS: 95806 ==

== ENCOUNTER 2023-08-11 14:28 | Outpatient (REF) | payer MEDICAID, SELFPAY ==
--- NOTE | ~2023-08-11 | MM_ITS ---
EXAMINATION: MM SCREENING DIGITAL BREAST TOMOSYNTHESIS, BILATERAL CLINICAL INFORMATION: Screening. Asymptomatic. COMPARISON: Mammography: This study is compared with prior exams dating back to 2018. TECHNIQUE: Digital breast tomosynthesis is performed in both the craniocaudal and mediolateral oblique views along with computer-aided detection (CAD). Synthesized 2D images are generated from the tomosynthesis. FINDINGS: The breasts are heterogeneously dense, which may obscure small masses (ACR BI-RADS breast composition Category c). The patient has bilateral nipple rings. There is a focal asymmetry in the upper outer quadrant of the left breast for which additional mammographic and targeted sonographic evaluation is advised. In the right breast, there are no significant masses, abnormal calcifications, or other abnormalities. MM/MM tomosynthesis screening BI IMPRESSION: Focal asymmetry of the left breast warrants additional mammographic and targeted sonographic evaluation. No mammographic signs of malignancy right breast. ASSESSMENT: BI-RADS BI-RADS 0 - Incomplete: Needs additional Imaging. RECOMMENDATION: 1. Additional views of the left breast. 2. Targeted ultrasound if warranted after review of the additional views. 3. Radiology department staff will contact the patient for additional imaging. Additional Imaging required This examination should not preclude the clinical evaluation of a suspicious palpable abnormality. This patient's information was entered into a reminder system with a target due date for their next mammogram.
== END 2023-08-11 14:29 | disposition home or self-care (01) ==
LOC: HO.MAMMO 14:28
PROVIDERS: PCP Internal Medicine; Visit Provider Internal Medicine
DX: Z12.31 Encounter for screening mammogram for malignant neoplasm of breast (principal)
CPT/HCPCS: 77063; 77067

== ENCOUNTER → 2023-08-11 14:45 | Outpatient (BNV) | payer MEDICAID, SELFPAY | PROVIDERS: PCP Internal Medicine; Visit Provider Radiology Diagnostic Radiology | DX: Z12.31 Encounter for screening mammogram for malignant neoplasm of breast (principal) | CPT/HCPCS: 77063; 77067 ==

== ENCOUNTER 2023-08-22 12:11 | Outpatient (AMB) | payer MEDICAID, SELFPAY ==
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
== END 2023-08-22 13:15 | disposition home or self-care (01) ==
PROVIDERS: PCP Internal Medicine; Referring Provider Internal Medicine; Visit Provider Orthopaedic Surgery
DX: M25.562 Pain in left knee (principal)
CPT/HCPCS: 99212

== ENCOUNTER → 2023-08-22 12:11 | Outpatient (BNVA) | payer MEDICAID, SELFPAY | PROVIDERS: PCP Internal Medicine; Visit Provider Orthopaedic Surgery | DX: M25.562 Pain in left knee (principal) | CPT/HCPCS: 99212 ==

== ENCOUNTER → 2023-08-29 19:30 | Outpatient (REF) | payer MEDICAID, SELFPAY | LOC: HO.SL 19:30 | PROVIDERS: PCP Internal Medicine; Visit Provider Nurse Practitioner Family | DX: Z13.89 Encounter for screening for other disorder (principal) ==

== ENCOUNTER → 2023-08-29 22:21 | Outpatient (BNV) | payer MEDICAID, SELFPAY | PROVIDERS: PCP Internal Medicine; Visit Provider Internal Medicine | DX: G47.33 Obstructive sleep apnea (adult) (pediatric) (principal) | CPT/HCPCS: 95810 ==

== ENCOUNTER 2023-09-05 12:34 | Outpatient (AMB) | payer MEDICAID, SELFPAY ==
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
== END 2023-09-05 13:47 | disposition home or self-care (01) ==
PROVIDERS: PCP Internal Medicine; Referring Provider Internal Medicine; Visit Provider Physician Assistant
DX: M54.12 Radiculopathy, cervical region (principal); M50.90 Cervical disc disorder, unspecified, unspecified cervical region
CPT/HCPCS: 99204

== ENCOUNTER → 2023-09-05 12:34 | Outpatient (BNVA) | payer MEDICAID, SELFPAY | PROVIDERS: PCP Internal Medicine; Visit Provider Physician Assistant | DX: M54.12 Radiculopathy, cervical region (principal); M50.90 Cervical disc disorder, unspecified, unspecified cervical region | CPT/HCPCS: 99212 ==

== ENCOUNTER 2023-09-24 12:59 | Outpatient (REF) | payer MEDICAID, SELFPAY ==
--- NOTE | ~2023-09-24 | US_ITS ---
EXAMINATION: MM DIAGNOSTIC DIGITAL BREAST TOMOSYNTHESIS, LEFT US BREAST LIMITED, LEFT MAMMOGRAPHY: CLINICAL INFORMATION: Evaluate focal asymmetry left breast seen upper outer quadrant on recent screening exam 08/11/2023. COMPARISON: Mammography: 08/11/2023, 01/13/2018. TECHNIQUE: Digital breast tomosynthesis is performed in the following views: Left CC spot compression 3-D views x2, left MLO spot compression view x1, and a full-field left 3-D digital mediolateral view. Computer-aided diagnosis was used for this study. FINDINGS: The breasts are heterogeneously dense, which may obscure small masses (ACR BI-RADS breast composition Category c). There is a stable dense region of tissue in the upper outer left breast, quite similar to 2018. Spot compression views demonstrate no mass or region of architectural distortion which is inseparable from the dense island of tissue in this region. The full field 90 degree left mediolateral view also demonstrates no definite discrete abnormality aside from heterogeneously dense tissue. There is a left nipple ring. This region will be evaluated by ultrasound. ULTRASOUND: CLINICAL INFORMATION: As above. COMPARISON: None TECHNIQUE: Targeted sonographic evaluation left breast upper outer quadrant was performed using a high frequency linear transducer. Selected archived documentation. FINDINGS: LEFT BREAST: There is dense fibroglandular tissue in the upper outer quadrant. At the 2:00 axis, 11 cm from the nipple, there is an anechoic simple cyst measuring 1.7 x 1.4 x 0.8 cm. There are 2 small abutting 5 mm simple cysts. There is no solid mass, area of abnormal shadowing, edema in the soft tissue planes, or architectural distortion identified. US/US breast LT limited mamm only IMPRESSION: There are no findings suspicious for malignancy in the left breast. There are 3 simple cysts in the upper outer quadrant interposed within dense fibrocystic tissue, the larger measuring 1.7 x 1.4 x 0.8 cm. These are benign. Recommend the patient return to routine annual screening. OVERALL ASSESSMENT: Mammography: BI-RADS 2 - Benign Findings Ultrasound: BI-RADS 2 - Benign Findings RECOMMENDATION: 1 year F/U This patient's information was entered into a reminder system with a target due date for their next mammogram.
== END 2023-09-24 13:00 | disposition home or self-care (01) ==
LOC: HO.MAMMO 12:59
PROVIDERS: PCP Internal Medicine; Visit Provider Internal Medicine
DX: N64.89 Other specified disorders of breast (principal)
CPT/HCPCS: 76642; 77061; 77065

== ENCOUNTER → 2023-09-24 14:00 | Outpatient (BNV) | payer MEDICAID, SELFPAY | PROVIDERS: PCP Internal Medicine; Visit Provider Radiology Diagnostic Radiology | DX: R92.8 Other abnormal and inconclusive findings on diagnostic imaging of breast (principal) | CPT/HCPCS: 76642; 77061; 77065 ==

== ENCOUNTER 2023-10-13 13:27 | Outpatient (AMB) | payer MEDICAID, SELFPAY ==
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
[2023-10-13 13:40] VITALS: BP 140/80; PULSE 95; RESP 16; O2SAT 99; BMI 31.7
== END 2023-10-13 13:58 | disposition home or self-care (01) ==
PROVIDERS: PCP Internal Medicine; Visit Provider Anesthesiology
DX: M54.12 Radiculopathy, cervical region (principal); M50.90 Cervical disc disorder, unspecified, unspecified cervical region; G89.4 Chronic pain syndrome; M50.322 Other cervical disc degeneration at C5-C6 level
CPT/HCPCS: 99214

== ENCOUNTER → 2023-10-13 13:27 | Outpatient (BNVA) | payer MEDICAID, SELFPAY | PROVIDERS: PCP Internal Medicine; Visit Provider Anesthesiology | DX: M54.12 Radiculopathy, cervical region (principal); M50.90 Cervical disc disorder, unspecified, unspecified cervical region; G89.4 Chronic pain syndrome; M50.322 Other cervical disc degeneration at C5-C6 level | CPT/HCPCS: 99212 ==

== ENCOUNTER 2023-10-17 14:13 | Outpatient (AMB) | payer MEDICAID, SELFPAY ==
--- NOTE | 2023-10-17 14:37 | A.SPINEOV_ITS ---
Intake Intake Visit Reasons: follow up after `s visit Intake Note: Ms. Hall is here today to F/u after Dr. Aguirre's Visit. Dry Goods Clerk Required: No Allergies levofloxacin [From Levaquin] Allergy (Intermediate, Verified 10/13/23 13:41) INTERACTED W/ANTI DEPRESSANT morphine [MORPHINE] Allergy (Intermediate, Verified 10/13/23 13:41) ITCHING, HIVES trazodone [TRAZODONE] Allergy (Mild, Verified 10/13/23 13:41) TACHYCARDIA amitriptyline Allergy (Unknown, Verified 10/13/23 13:41) Unknown citalopram Allergy (Unknown, Verified 10/13/23 13:41) Unknown escitalopram Allergy (Unknown, Verified 10/13/23 13:41) Unknown ibuprofen Allergy (Unknown, Verified 10/13/23 13:41) Unknown ketorolac Allergy (Unknown, Verified 10/13/23 13:41) Unknown sertraline Allergy (Unknown, Verified 10/13/23 13:41) Unknown Sulfa (Sulfonamide Antibiotics) Allergy (Unknown, Verified 10/13/23 13:41) Unknown topiramate Allergy (Unknown, Verified 10/13/23 13:41) Unknown trimethoprim Allergy (Unknown, Verified 10/13/23 13:41) Unknown zolpidem Allergy (Unknown, Verified 10/13/23 13:41) Unknown NSAIDS (Non-Steroidal Anti-Inflamma [NSAIDS (NON-STEROIDAL ANTI-INFLAMMA] Adverse Reaction (Severe, Verified 10/13/23 13:41) HYPEREMESIS adhesive tape Adverse Reaction (Verified 10/13/23 13:41) Blister From Celexa Allergy (Intermediate, Uncoded 05/08/23 15:55) INTERACTS W/LEVAQUIN ANTIDEPRESENT Allergy (Unknown, Uncoded 05/08/23 15:55) Unknown Sulfamethoxazole Allergy (Unknown, Uncoded 05/08/23 15:55) Unknown toradol Allergy (Unknown, Uncoded 05/08/23 15:55) Unknown From Ambien Adverse Reaction (Severe, Uncoded 05/08/23 15:55) TACHYCARDIA From Ultram Adverse Reaction (Severe, Uncoded 05/08/23 15:55) TACHYCARDIA From ZOLOFT Adverse Reaction (Severe, Uncoded 05/08/23 15:55) TACHYCARDIA From TORADOL Adverse Reaction (Mild, Uncoded 05/08/23 15:55) STOMACH UPSET Assessment & Plan Assessment & Plan (1) Other cervical disc degeneration at C5-C6 level: Code(s): M50.322 - Other cervical disc degeneration at C5-C6 level Plan: Mrs Hall is here in follow-up. Please refer to my previous note for the specifics of the problem. She has been dealing with posterior neck pain now for many months and has been through numerous rounds of conservative management in the setting of a degenerative disc at C5-6. I sent her to 1 of my colleagues for pain management for consideration of injection but the patient does not wish to stay with him as a provider at this point. It was not the experience she hoped for. She is interested in continuing with the idea of an injection, she is looking specifically for something like maybe trigger point injections that could just help with some of the muscle spasm. 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 I think this is certainly reasonable, and I will refer her to 1 of my other colleagues who I believe may be able to help her. Total amount of time spent in this visit was 20 minutes in discussion of symptoms, [] imaging results and subsequent plan of care Frederick Stauffer MD,PhD [facility] (2) Cervicalgia: Code(s): M54.2 - Cervicalgia Plan: See above Orders: Referrals Physiatry Referral M50.322 - Other cervical disc degeneration at C5-C6 level, M54.2 - Cervicalgia Coding Level of Care Code Est Pt Level 3 (58918) Diagnoses Other cervical disc degeneration at C5-C6 level M50.322 Cervicalgia M54.2
== END 2023-10-17 15:13 | disposition home or self-care (01) ==
PROVIDERS: PCP Internal Medicine; Visit Provider Physician Assistant
DX: M50.322 Other cervical disc degeneration at C5-C6 level (principal)
CPT/HCPCS: 99213

== ENCOUNTER → 2023-10-17 14:13 | Outpatient (BNVA) | payer MEDICAID, SELFPAY | PROVIDERS: PCP Internal Medicine; Visit Provider Physician Assistant | DX: M50.322 Other cervical disc degeneration at C5-C6 level (principal) | CPT/HCPCS: 99212 ==

== ENCOUNTER 2023-10-21 15:43 | Outpatient (REF) | payer MEDICAID, SELFPAY ==
--- NOTE | ~2023-10-21 | XR_ITS ---
EXAMINATION: XR CHEST CLINICAL INFORMATION: Acute cough and shortness of breath with mild intermittent asthma COMPARISON: 12/24/2021 TECHNIQUE: 2 views of the chest were obtained. FINDINGS: No significant abnormality is noted involving the heart, lungs, mediastinum, bony thorax or soft tissues. XR/XR chest 2V IMPRESSION: Unremarkable examination.
== END 2023-10-21 15:44 | disposition home or self-care (01) ==
LOC: HO.HHCX 15:43
PROVIDERS: Visit Provider Internal Medicine
DX: R05.1 Acute cough (principal); J45.41 Moderate persistent asthma with (acute) exacerbation
CPT/HCPCS: 71046

== ENCOUNTER 2023-11-21 14:24 | Outpatient (AMB) | payer MEDICAID, SELFPAY ==
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
[2023-11-21 14:35] VITALS: BP 112/70; PULSE 107; O2SAT 97; BMI 30.8
== END 2023-11-21 14:53 | disposition home or self-care (01) ==
PROVIDERS: PCP Internal Medicine; Visit Provider Nurse Practitioner Family
DX: G47.30 Sleep apnea, unspecified (principal)
CPT/HCPCS: 99213

== ENCOUNTER → 2023-11-21 14:24 | Outpatient (BNVA) | payer MEDICAID, SELFPAY | PROVIDERS: PCP Internal Medicine; Visit Provider Nurse Practitioner Family | DX: G47.30 Sleep apnea, unspecified (principal) | CPT/HCPCS: 99212 ==

== ENCOUNTER 2023-12-05 13:08 | Outpatient (AMB) | payer MEDICAID, SELFPAY ==
--- NOTE | 2023-12-05 13:26 | A.SPINEOV_ITS ---
Intake Visit Reasons: 3 month f/u Intake Note: Ms. Hall is here today for a 3 month F/u. Chief Quality Officer Required: No Allergies levofloxacin [From Levaquin] Allergy (Intermediate, Verified 12/05/23 13:27) INTERACTED W/ANTI DEPRESSANT morphine [MORPHINE] Allergy (Intermediate, Verified 12/05/23 13:27) ITCHING, HIVES trazodone [TRAZODONE] Allergy (Mild, Verified 12/05/23 13:27) TACHYCARDIA amitriptyline Allergy (Unknown, Verified 12/05/23 13:27) Unknown citalopram Allergy (Unknown, Verified 12/05/23 13:27) Unknown escitalopram Allergy (Unknown, Verified 12/05/23 13:27) Unknown ibuprofen Allergy (Unknown, Verified 12/05/23 13:27) Unknown ketorolac Allergy (Unknown, Verified 12/05/23 13:27) Unknown sertraline Allergy (Unknown, Verified 12/05/23 13:27) Unknown Sulfa (Sulfonamide Antibiotics) Allergy (Unknown, Verified 12/05/23 13:27) Unknown topiramate Allergy (Unknown, Verified 12/05/23 13:27) Unknown trimethoprim Allergy (Unknown, Verified 12/05/23 13:27) Unknown zolpidem Allergy (Unknown, Verified 12/05/23 13:27) Unknown NSAIDS (Non-Steroidal Anti-Inflamma [NSAIDS (NON-STEROIDAL ANTI-INFLAMMA] Adverse Reaction (Severe, Verified 12/05/23 13:27) HYPEREMESIS adhesive tape Adverse Reaction (Verified 12/05/23 13:27) Blister From Celexa Allergy (Intermediate, Uncoded 05/08/23 15:55) INTERACTS W/LEVAQUIN ANTIDEPRESENT Allergy (Unknown, Uncoded 05/08/23 15:55) Unknown Sulfamethoxazole Allergy (Unknown, Uncoded 05/08/23 15:55) Unknown toradol Allergy (Unknown, Uncoded 05/08/23 15:55) Unknown From Ambien Adverse Reaction (Severe, Uncoded 05/08/23 15:55) TACHYCARDIA From Ultram Adverse Reaction (Severe, Uncoded 05/08/23 15:55) TACHYCARDIA From ZOLOFT Adverse Reaction (Severe, Uncoded 05/08/23 15:55) TACHYCARDIA From TORADOL Adverse Reaction (Mild, Uncoded 05/08/23 15:55) STOMACH UPSET Assessment & Plan Assessment & Plan (1) Other cervical disc degeneration at C5-C6 level: Code(s): M50.322 - Other cervical disc degeneration at C5-C6 level Category: Medical Plan Mrs Hall is here in follow-up today. She did have a decent response from the 1st set of trigger point injections, but unfortunately the 2nd set just made things worse. She just continues to deal with this unrelenting pain in her neck. Despite this, she continues to try to work through school and employment and continue to push as much as she can tolerate. I am hopeful that this will go away with time. For now we will just follow-up on an as-needed basis and see her back if something changes down the road. Total amount of time spent in this visit was 20 minutes in discussion of symptoms, previous MRI imaging results and subsequent plan of care Frederick Stauffer MD,PhD [facility] Coding Level of Care Code Est Pt Level 3 (89763) Diagnoses Other cervical disc degeneration at C5-C6 level M50.322
== END 2023-12-05 14:47 | disposition home or self-care (01) ==
PROVIDERS: PCP Internal Medicine; Visit Provider Physician Assistant
DX: M50.322 Other cervical disc degeneration at C5-C6 level (principal)
CPT/HCPCS: 99213

== ENCOUNTER → 2023-12-05 13:08 | Outpatient (BNVA) | payer MEDICAID, SELFPAY | PROVIDERS: PCP Internal Medicine; Visit Provider Physician Assistant | DX: M50.322 Other cervical disc degeneration at C5-C6 level (principal) | CPT/HCPCS: 99212 ==

== ENCOUNTER 2024-03-24 13:19 | Outpatient (REF) | payer MEDICAID, SELFPAY ==
[2024-03-24 16:10] LABS: MANUAL DIFF FLAG NO
[2024-03-24 16:19] LABS: Basophils Absolute Auto 0.1 X10*3/uL (0.0-0.2); Basophils Percent Auto 0.8 % (0-2); Eosinophils Absolute Auto 0.2 X10*3/uL (0.0-0.4); Eosinophils Percent Auto 1.9 % (0-4); Hemoglobin 12.1 g/dl (12.0-16.0); Imm Gran Abs Auto 0.05 X10*3/uL (0.00-0.03); Imm Gran Pct Auto 0.4 % (0.0-0.4); Lymphocytes Absolute Auto 3.1 X10*3/uL (1.2-4.9); Lymphocytes Percent Auto 25.5 % (20-40); Mean Corpuscular HGB Conc 31.8 g/dl (31.0-35.0); Mean Corpuscular Volume 81.7 fL (80.0-98.0); Mean Platelet Volume 10.2 fL (9.4-12.3); Monocytes Absolute Auto 0.6 X10*3/uL (0.1-1.2); Monocytes Percent Auto 5.2 % (2-11); Neutrophils Percent Auto 66.2 % (45-73); Platelet Count 356 X10*3/uL (160-400); Red Blood Count 4.65 X10*6/uL (4.20-5.50); Red Cell Distribution Width 14.5 % (11.0-16.0)
[2024-03-24 16:45] LABS: Alanine Aminotransferase 35 U/L (0-31); Alkaline Phosphatase 91 U/L (39-117); Anion Gap 13 (12-20); Aspartate Amino Transferase 25 U/L (5-31); Bilirubin Total 0.4 mg/dL (0.0-1.0); Blood Urea Nitrogen 9 mg/dL (9-16); Calcium 9.5 mg/dL (8.4-10.2); Carbon Dioxide 24 mmol/L (22-29); Chloride 106 mmol/L (96-108); Cholesterol 158 mg/dL (<200); Estimated Glomerular Filt Rate > 60; Glucose Random 103 mg/dL (60-115); HDL Cholesterol 29 mg/dL (>40); LDL Cholesterol Calculated 111 mg/dL (<100); Potassium 3.8 mmol/L (3.3-5.1); Sodium 139 mmol/L (135-145); Total Protein 7.6 g/dL (6.5-8.0); Triglycerides 90 mg/dL (<150)
== END 2024-03-24 13:20 | disposition home or self-care (01) ==
LOC: HO.HHCL 13:19
PROVIDERS: Visit Provider Internal Medicine
DX: Z00.00 Encounter for general adult medical examination without abnormal findings (principal); N64.4 Mastodynia
CPT/HCPCS: 36415; 80053; 80061; 84443; 85025

== ENCOUNTER 2024-05-25 09:42 | Outpatient (AMB) | payer MEDICAID, SELFPAY ==
--- NOTE | 2024-05-25 09:47 | A.OFFVIS_ITS ---
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 Pt c/o of bilateral intermittent leg swelling. Does have pain when swelling occurs and is painful to walk. Photonics Engineering Technologist Required: No Accompanied by: Self / Same As Patient Allergies levofloxacin [From Levaquin] Allergy (Intermediate, Verified 05/25/24 09:49) INTERACTED W/ANTI DEPRESSANT morphine [MORPHINE] Allergy (Intermediate, Verified 05/25/24 09:49) ITCHING, HIVES trazodone [TRAZODONE] Allergy (Mild, Verified 05/25/24 09:49) TACHYCARDIA amitriptyline Allergy (Unknown, Verified 05/25/24 09:49) Unknown citalopram Allergy (Unknown, Verified 05/25/24 09:49) Unknown escitalopram Allergy (Unknown, Verified 05/25/24 09:49) Unknown ibuprofen Allergy (Unknown, Verified 05/25/24 09:49) Unknown ketorolac Allergy (Unknown, Verified 05/25/24 09:49) Unknown sertraline Allergy (Unknown, Verified 05/25/24 09:49) Unknown Sulfa (Sulfonamide Antibiotics) Allergy (Unknown, Verified 05/25/24 09:49) Unknown topiramate Allergy (Unknown, Verified 05/25/24 09:49) Unknown trimethoprim Allergy (Unknown, Verified 05/25/24 09:49) Unknown zolpidem Allergy (Unknown, Verified 05/25/24 09:49) Unknown NSAIDS (Non-Steroidal Anti-Inflamma [NSAIDS (NON-STEROIDAL ANTI-INFLAMMA] Adverse Reaction (Severe, Verified 05/25/24 09:49) HYPEREMESIS adhesive tape Adverse Reaction (Verified 05/25/24 09:49) Blister From Celexa Allergy (Intermediate, Uncoded 05/08/23 15:55) INTERACTS W/LEVAQUIN ANTIDEPRESENT Allergy (Unknown, Uncoded 05/08/23 15:55) Unknown Sulfamethoxazole Allergy (Unknown, Uncoded 05/08/23 15:55) Unknown toradol Allergy (Unknown, Uncoded 05/08/23 15:55) Unknown From Ambien Adverse Reaction (Severe, Uncoded 05/08/23 15:55) TACHYCARDIA From Ultram Adverse Reaction (Severe, Uncoded 05/08/23 15:55) TACHYCARDIA From ZOLOFT Adverse Reaction (Severe, Uncoded 05/08/23 15:55) TACHYCARDIA From TORADOL Adverse Reaction (Mild, Uncoded 05/08/23 15:55) STOMACH UPSET HPI HPI 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 She states this has been going on for years; however, the last few months it has been worse since she started school. Complaints include bilateral lower extremity pain, swelling of lower extremities, cramping, fatigue, and heaviness of the lower extremities. It has been affecting their daily activities including walking and studying. She has remote history of smoking and is not a diabetic; however, there is a family history of diabetes. It is noted bilaterally, not more in one leg. Patient denies any previous venous surgery or injections. She does have a hx in 2018 of an upper right arm thrombus due to PICC line. She was treated with 6m of Heparin. Patient denies any history of phlebitis. Trial of compression includes - remote use of compression stockings; she has been elevating at night when she can. She attempts to walk but it is difficult and painful. They now present for vascular evaluation regarding their varicose veins/lower extremity swelling. [facility] Medical History (Updated 05/25/24 @ 10:04 by Anu Vega PA-C) Hepatic steatosis Migraines Asthma Recurrent UTI Adhesive capsulitis of right shoulder Fibromyalgia Unspecified internal derangement of unspecified knee Surgical History History of left oophorectomy Previous section History of partial hysterectomy Family History Father No problems noted. Mother No problems noted. 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 Reproductive History Menstrual Age of Menarche: 13 Review of Systems Const Denies chills, Denies daytime sleepiness, Denies fatigue, Denies fever(s), Denies poor appetite, Denies snoring, Denies stops breathing during sleep, Denies weakness, Denies weight gain and Denies weight loss Eyes Denies loss of vision ENT Reports Normal hearing present, Denies dizziness and Denies hearing loss Card Denies chest pain, Denies irregular heart rhythm, Denies claudication, Denies leg edema, Denies lightheadedness, Denies palpitations, Denies dyspnea on exertion and Denies orthopnea Resp Denies cough, Denies excessive phlegm production, Denies dyspnea on exertion, Denies snoring and Denies wheezing GI Denies abdominal pain, Denies hematochezia, Denies change in bowel habits, Denies nausea and Denies vomiting Denies urinary frequency and Denies dysuria Musc Denies arthralgias, Denies muscle weakness, Denies numbness and Denies other Skin/Breast Denies nail changes and Denies rash Neuro Reports Normal hearing present, Denies Abnormal speech present, Denies dizziness, Denies loss of vision, Denies memory loss, Denies numbness, Denies Sensory deficit (Neuro) and Denies weakness Psych Denies depression and Denies memory loss Endo Denies fatigue and Denies palpitations Avery/Lymph Denies easy bruising Aller/Immun Denies wheezing Physical Exam Const General: healthy appearing and no acute distress Orientation/consciousness: patient oriented x3 HEENT Head: Yes normal to inspection Ears: hearing grossly normal bilaterally Mouth: Normal oral and palatal mucosa present Resp Effort & Inspection: normal respiratory effort and able to speak in complete sentences Auscultation: clear to auscultation bilaterally Cardio Jugular venous distension: no JVD Rate: regular rate Rhythm: regular rhythm Heart sounds: S1 normal heart sound present and S2 normal heart sound present Bruits: no abdominal aortic bruits, no carotid bruits, no femoral bruits and no renal bruits Peripheral pulses: Peripheral pulses 2+ throughout GI Inspection: Yes normal to inspection Palpation (GI): No Abdominal aortic bruit present Skin General skin exam: no rashes or lesions noted Wounds: no wounds Hair: normal Neuro General: patient oriented x3 Cranial nerves: Yes CN's II-XII intact bilaterally and Yes Normal hearing present Cognition (Neuro): normal cognition Speech: No Abnormal speech present Gait exam (Neuro): Normal gait present Motor exam (neuro): 5/5 motor strength present throughout Sensory Exam: No Sensory deficit (Neuro) Extrem Other: Bilateral lower extremities: Slight peripheral edema noted bilaterally. Several small spider veins noted, no tortuosity is noted. CEAP: C - 3 E - primary A - superficial P - reflux General: Yes normal to inspection, Yes full ROM, Yes capillary refill normal and Yes normal gait Assessment & Plan Assessment & Plan (1) Varicose veins of both lower extremities with inflammation: Code(s): I83.11 - Varicose veins of right lower extremity with inflammation; I83.12 - Varicose veins of left lower extremity with inflammation Category: Medical Plan: Nisa is presenting today with ongoing increased swelling in bilateral lower extremities, worsening throughout the course of the day. She has used compression stockings in the past and does attempt to elevate her legs nightly. She states this has been interfering with walking. In short, the patient has evidence of venous insufficiency. I have discussed the pathophysiology with the patient. In addition I have provided informational material regarding venous disease to the patient. We have discussed conservative measures including compression, elevation, and exercise. I have also provided a handout regarding appropriate use of compression stockings and where to purchase good compression stockings as well. I have taken the liberty of ordering venous insufficiency testing with the patient. They will follow up with me after testing. The patient had an opportunity to ask questions regarding the treatment plan. All questions were answered. No major barriers to understanding were identified. The patient expressed understanding and agreement with the above treatment plan. The patient is aware they should contact our office by phone for worsening of the current condition or the appearance of new symptoms. Thank you for allowing me to participate in the vascular care of this patient. If you have any questions or concerns regarding the treatment for the above condition please do not hesitate to contact me. The office telephone contact is [phone]. This note is constructed using voice recognition software. While every ef fort has been made to ensure accuracy, swinging cut off saw operator errors may have been included. Thank you for allowing me to participate in the care of your patient. Yours sincerely, ARLENE Webster Orders: Orders US venous duplex LE BI 1 Week I83.11 - Varicose veins of right lower extremity with inflammation, I83.12 - Varicose veins of left lower extremity with inflammation Coding Level of Care Code New Pt New Pt Level 4 (09243) Patient Type New Diagnoses Varicose veins of both lower extremities with inflammation I83.11; I83.12
== END 2024-05-25 10:09 | disposition home or self-care (01) ==
LOC: HO.HVS 09:42
PROVIDERS: PCP Internal Medicine; Visit Provider Physician Assistant Surgical
DX: I83.11 Varicose veins of right lower extremity with inflammation (principal); I83.12 Varicose veins of left lower extremity with inflammation
CPT/HCPCS: 99204

== ENCOUNTER → 2024-05-25 09:42 | Outpatient (BNVA) | payer MEDICAID, SELFPAY | PROVIDERS: PCP Internal Medicine; Visit Provider Physician Assistant Surgical | DX: I83.11 Varicose veins of right lower extremity with inflammation (principal); I83.12 Varicose veins of left lower extremity with inflammation | CPT/HCPCS: 99212 ==

== ENCOUNTER 2024-06-01 15:02 | Outpatient (REF) | payer MEDICAID, SELFPAY ==
--- NOTE | ~2024-06-01 | XR_ITS ---
EXAMINATION: XR lumbar spine 2-3V (accession [id number]) XR hip RT min 2V (accession [id number]) XR pelvis 1-2V (accession [id number]) CLINICAL INFORMATION: FALL, LOW BACK PAIN Fibromyalgia, right HIP PAIN S/P FALL. COMPARISON: Lumbar spine radiograph 05/08/23, left hip radiograph 05/08/23 TECHNIQUE: AP and lateral views of the lumbar spine and lateral view of the lumbosacral junction, 3 images. AP and frog leg lateral view of the right hip, 2 images. AP view of the pelvis, 1 image. FINDINGS: Lumbar spine: Mild facet joint space narrowing and arthropathy at L4-L5 and L5-S1, progressed from prior. Vertebral body heights are normal. No fracture or spondylolisthesis. Intervertebral disc heights are maintained without significant degenerative disc disease. Bone mineralization is normal. Soft tissues are unremarkable. Right hip: The femoral head is well-seated within the acetabulum. No significant soft tissue abnormality. No radiopaque foreign body. Pelvis: The pelvic rim is intact. No pubic symphysis diastases. Sacroiliac joint spaces are well-maintained without erosions or surrounding sclerosis. The left hip is intact. XR/XR hip RT min 2V IMPRESSION: 1. No acute fracture or malalignment of the lumbar spine, right hip, or pelvis. 2. Mild facet joint space narrowing and arthropathy at L4-L5 and L5-S1, progressed from prior. Electronically signed by: Christiane Levine DO 06/02/2024 10:49 AM [facility] [place]
--- NOTE | ~2024-06-01 | XR_ITS ---
EXAMINATION: XR lumbar spine 2-3V (accession [id number]) XR hip RT min 2V (accession [id number]) XR pelvis 1-2V (accession [id number]) CLINICAL INFORMATION: FALL, LOW BACK PAIN Fibromyalgia, right HIP PAIN S/P FALL. COMPARISON: Lumbar spine radiograph 05/08/23, left hip radiograph 05/08/23 TECHNIQUE: AP and lateral views of the lumbar spine and lateral view of the lumbosacral junction, 3 images. AP and frog leg lateral view of the right hip, 2 images. AP view of the pelvis, 1 image. FINDINGS: Lumbar spine: Mild facet joint space narrowing and arthropathy at L4-L5 and L5-S1, progressed from prior. Vertebral body heights are normal. No fracture or spondylolisthesis. Intervertebral disc heights are maintained without significant degenerative disc disease. Bone mineralization is normal. Soft tissues are unremarkable. Right hip: The femoral head is well-seated within the acetabulum. No significant soft tissue abnormality. No radiopaque foreign body. Pelvis: The pelvic rim is intact. No pubic symphysis diastases. Sacroiliac joint spaces are well-maintained without erosions or surrounding sclerosis. The left hip is intact. XR/XR pelvis 1-2V IMPRESSION: 1. No acute fracture or malalignment of the lumbar spine, right hip, or pelvis. 2. Mild facet joint space narrowing and arthropathy at L4-L5 and L5-S1, progressed from prior. Electronically signed by: Christiane Levine DO 06/02/2024 10:49 AM [facility]
--- NOTE | ~2024-06-01 | XR_ITS ---
EXAMINATION: XR lumbar spine 2-3V (accession [id number]) XR hip RT min 2V (accession [id number]) XR pelvis 1-2V (accession [id number]) CLINICAL INFORMATION: FALL, LOW BACK PAIN Fibromyalgia, right HIP PAIN S/P FALL. COMPARISON: Lumbar spine radiograph 05/08/23, left hip radiograph 05/08/23 TECHNIQUE: AP and lateral views of the lumbar spine and lateral view of the lumbosacral junction, 3 images. AP and frog leg lateral view of the right hip, 2 images. AP view of the pelvis, 1 image. FINDINGS: Lumbar spine: Mild facet joint space narrowing and arthropathy at L4-L5 and L5-S1, progressed from prior. Vertebral body heights are normal. No fracture or spondylolisthesis. Intervertebral disc heights are maintained without significant degenerative disc disease. Bone mineralization is normal. Soft tissues are unremarkable. Right hip: The femoral head is well-seated within the acetabulum. No significant soft tissue abnormality. No radiopaque foreign body. Pelvis: The pelvic rim is intact. No pubic symphysis diastases. Sacroiliac joint spaces are well-maintained without erosions or surrounding sclerosis. The left hip is intact. XR/XR lumbar spine 2-3V IMPRESSION: 1. No acute fracture or malalignment of the lumbar spine, right hip, or pelvis. 2. Mild facet joint space narrowing and arthropathy at L4-L5 and L5-S1, progressed from prior. Electronically signed by: Christiane Levine DO 06/02/2024 10:49 AM [facility]
[2024-06-01 16:11] LABS: MANUAL DIFF FLAG NO
[2024-06-01 16:20] LABS: Basophils Absolute Auto 0.1 X10*3/uL (0.0-0.2); Basophils Percent Auto 0.9 % (0-2); Eosinophils Absolute Auto 0.3 X10*3/uL (0.0-0.4); Eosinophils Percent Auto 2.2 % (0-4); Hematocrit 37.8 % (37.0-47.0); Hemoglobin 12.3 g/dl (12.0-16.0); Imm Gran Abs Auto 0.03 X10*3/uL (0.00-0.03); Imm Gran Pct Auto 0.3 % (0.0-0.4); Lymphocytes Absolute Auto 2.9 X10*3/uL (1.2-4.9); Lymphocytes Percent Auto 25.5 % (20-40); Mean Corpuscular HGB Conc 32.5 g/dl (31.0-35.0); Mean Corpuscular Volume 83.1 fL (80.0-98.0); Mean Platelet Volume 9.8 fL (9.4-12.3); Monocytes Absolute Auto 0.6 X10*3/uL (0.1-1.2); Monocytes Percent Auto 5.3 % (2-11); Neutrophils Absolute Auto 7.6 x10*3/uL (2.0-8.3); Neutrophils Percent Auto 65.8 % (45-73); Platelet Count 398 X10*3/uL (160-400); Red Blood Count 4.55 X10*6/uL (4.20-5.50); Red Cell Distribution Width 15.5 % (11.0-16.0); White Blood Count 11.5 X10*3/uL (4.8-10.8)
[2024-06-01 17:23] LABS: Folate 13.7 ng/mL (> or = 4.0); Vitamin B12 583 pg/mL (200-900)
[2024-06-02 08:36] LABS: Syphilis Screen Nonreactive (Nonreactive)
[2024-06-03 06:48] LABS: Lyme Abs Screen <0.90 index
[2024-06-04 05:12] LABS: TS Negative Control Passed; TS Panel A 0; TS Panel B 0; TS Positive Control Passed; TSpotTB Negative (Negative)
== END 2024-06-01 15:03 | disposition home or self-care (01) ==
LOC: HO.HHCL 15:02
PROVIDERS: Visit Provider Internal Medicine
DX: M79.7 Fibromyalgia (principal); R41.3 Other amnesia; D72.829 Elevated white blood cell count, unspecified; M25.551 Pain in right hip
CPT/HCPCS: 36415; 72100; 72170; 73502; 82607; 82746; 85025; 86481; 86617; 86618; 86780

== ENCOUNTER 2024-06-03 09:58 | Outpatient (REF) | payer MEDICAID, SELFPAY ==
[2024-06-03 12:16] LABS: HBS Num1 531.59 mIU/mL (0-7.99); HBc Num1 0.19 S/CO (0.00-0.79); HBsAGNum1 0.37 S/CO (0.00-0.99); Hepatitis B Core Antibody Nonreactive (Nonreactive); Hepatitis B Surface Antigen Negative (Negative); ~Hepatitis B Surface Antibody REACTIVE (Nonreactive)
[2024-06-04 10:39] LABS: Varicella IgG Antibody 7.99 S/CO
[2024-06-04 13:03] LABS: Mumps Virus IgG Antibody >300.00 AU/mL; Rubella IgG Antibody 2.55 Index
== END 2024-06-03 09:59 | disposition home or self-care (01) ==
LOC: HO.HHCL 09:58
PROVIDERS: Visit Provider Internal Medicine
DX: Z01.84 Encounter for antibody response examination (principal); Z92.29 Personal history of other drug therapy
CPT/HCPCS: 36415; 86704; 86706; 86735; 86762; 86765; 86787; 87340

== ENCOUNTER 2024-06-07 10:05 | Outpatient (REF) | payer MEDICAID, SELFPAY ==
--- NOTE | ~2024-06-07 | US_ITS ---
EXAMINATION: US LOWER EXTREMITY VENOUS (REFLUX EXAM), BILATERAL CLINICAL INDICATION: Chronic venous insufficiency with lower extremity varicose veins with inflammation COMPARISON: None. TECHNIQUE: Color flow triplex imaging and compression Doppler was performed to evaluate both the deep and the superficial systems bilaterally. To evaluate the superficial system, the examination was performed in the upright position. Color-flow Doppler ultrasound and compression ultrasound were utilized. In addition, maneuvers were utilized to demonstrate reflux. FINDINGS: 1. DEEP VENOUS ULTRASOUND OF THE RIGHT LOWER EXTREMITY: Common Femoral Vein: Compressible, normal respiratory variation and augmented flow. Femoral Vein: Compressible, normal color flow and augmentation. Popliteal Vein: Compressible, normal augmentation. Deep Reflux: There is no evidence of reflux in the deep system in either the common femoral vein, superficial femoral or the popliteal vein. There is no evidence of a Ghotra's cyst. 2. SUPERFICIAL ULTRASOUND WITH DOPPLER OF RIGHT LOWER EXTREMITY: GREAT SAPHENOUS VEIN: Saphenofemoral Junction: 0.8 cm; Reflux: 0 ms Proximal Thigh: 0.6 cm; Reflux: 0 ms Mid Thigh: 0.4 cm; Reflux: 0 ms Above Knee: 0.4 cm; Reflux: 0 ms At Knee: 0.4 cm; Reflux: 0 ms Below Knee: 0.4 cm; Reflux: 0 ms Mid Calf: 0.3 cm; Reflux: 512 ms Ankle: 0.3 cm; Reflux: 0 ms DUPLICATED MEDIAL GREAT SAPHENOUS VEIN: Diameter: None imaged Reflux: NA DUPLICATED LATERAL GREAT SAPHENOUS VEIN: Diameter: 0.5 cm Reflux: None SMALL SAPHENOUS VEIN: Saphenopopliteal Junction: 0.3 cm; Reflux: 1148 ms Proximal: 0.2 cm; Reflux: 0 ms Distal: 0.2 cm; Reflux: 0 ms VEIN OF GIACOMINI: Size: NA Reflux: NA PERFORATORS: Location: None significant Size: NA Reflux: NA VARICOSITIES: Location: Proximal thigh, proximal calf and distal calf Size: 0.3 cm Reflux: None 3. DEEP VENOUS ULTRASOUND OF THE LEFT LOWER EXTREMITY: Common Femoral Vein: Compressible, normal respiratory variation and augmented flow. Femoral Vein: Compressible, normal color flow and augmentation. Popliteal Vein: Compressible, normal augmentation. Deep Reflux: There is no evidence of reflux in the deep system in either the common femoral vein, superficial femoral or the popliteal vein. There is no evidence of a Ghotra's cyst. 4. SUPERFICIAL ULTRASOUND WITH DOPPLER OF LEFT LOWER EXTREMITY: GREAT SAPHENOUS VEIN: Saphenofemoral Junction: 1.0 cm; Reflux: 0 ms Proximal Thigh: 0.5 cm; Reflux: 0 ms Mid Thigh: 0.4 cm; Reflux: 0 ms Above Knee: 0.5 cm; Reflux: 0 ms At Knee: 0.5 cm; Reflux: 0 ms Below Knee: 0.3 cm; Reflux: 0 ms Mid Calf: 0.3 cm; Reflux: 0 ms Ankle: 0.2 cm; Reflux: 0 ms DUPLICATED MEDIAL GREAT SAPHENOUS VEIN: Diameter: None imaged Reflux: NA DUPLICATED LATERAL GREAT SAPHENOUS VEIN: Diameter: 0.3 cm Reflux: None SMALL SAPHENOUS VEIN: Saphenopopliteal Junction: 0.2 cm; Reflux: 0 ms Proximal: 0.3 cm; Reflux: 0 ms Distal: 0.2 cm; Reflux: 0 ms VEIN OF GIACOMINI: Size: NA Reflux: NA PERFORATORS: Location: None significant Size: NA Reflux: NA VARICOSITIES: Location: Proximal thigh, proximal calf, posterior distal calf Size: 0.3 to 0.4 cm Reflux: None US/US venous duplex LE BI IMPRESSION: 1. Right: Focal reflux in the great saphenous vein in the mid calf and small saphenous vein at the saphenopopliteal junction. Multiple varicosities without significant reflux as described above. 2. Left: No significant venous insufficiency or reflux. Multiple varicosities without significant reflux as described above. Electronically signed by: Sina Morton MD 07/01/2024 10:44 AM [facility]
== END 2024-06-07 10:06 | disposition home or self-care (01) ==
LOC: HO.US 10:05
PROVIDERS: PCP Internal Medicine; Visit Provider Physician Assistant Surgical
DX: I83.11 Varicose veins of right lower extremity with inflammation (principal); I83.12 Varicose veins of left lower extremity with inflammation
CPT/HCPCS: 93970

== ENCOUNTER 2024-06-15 12:40 | Outpatient (AMB) | payer MEDICAID, SELFPAY ==
--- NOTE | 2024-06-15 13:03 | MHC.OFFVIS ---
Intake Visit Reasons: Follow Up 06/07/24 US Intake Note: Patient presents for US follow up. Patient states she has pain when walking. Worsens after activity , especially at night. Accompanied by: Self / Same As Patient Allergies levofloxacin [From Levaquin] Allergy (Intermediate, Verified 06/15/24 13:05) INTERACTED W/ANTI DEPRESSANT morphine [MORPHINE] Allergy (Intermediate, Verified 06/15/24 13:05) ITCHING, HIVES trazodone [TRAZODONE] Allergy (Mild, Verified 06/15/24 13:05) TACHYCARDIA amitriptyline Allergy (Unknown, Verified 06/15/24 13:05) Unknown citalopram Allergy (Unknown, Verified 06/15/24 13:05) Unknown escitalopram Allergy (Unknown, Verified 06/15/24 13:05) Unknown ibuprofen Allergy (Unknown, Verified 06/15/24 13:05) Unknown ketorolac Allergy (Unknown, Verified 06/15/24 13:05) Unknown sertraline Allergy (Unknown, Verified 06/15/24 13:05) Unknown Sulfa (Sulfonamide Antibiotics) Allergy (Unknown, Verified 06/15/24 13:05) Unknown topiramate Allergy (Unknown, Verified 06/15/24 13:05) Unknown trimethoprim Allergy (Unknown, Verified 06/15/24 13:05) Unknown zolpidem Allergy (Unknown, Verified 06/15/24 13:05) Unknown NSAIDS (Non-Steroidal Anti-Inflamma [NSAIDS (NON-STEROIDAL ANTI-INFLAMMA] Adverse Reaction (Severe, Verified 06/15/24 13:05) HYPEREMESIS adhesive tape Adverse Reaction (Verified 06/15/24 13:05) Blister From Celexa Allergy (Intermediate, Uncoded 05/08/23 15:55) INTERACTS W/LEVAQUIN ANTIDEPRESENT Allergy (Unknown, Uncoded 05/08/23 15:55) Unknown Sulfamethoxazole Allergy (Unknown, Uncoded 05/08/23 15:55) Unknown toradol Allergy (Unknown, Uncoded 05/08/23 15:55) Unknown From Ambien Adverse Reaction (Severe, Uncoded 05/08/23 15:55) TACHYCARDIA From Ultram Adverse Reaction (Severe, Uncoded 05/08/23 15:55) TACHYCARDIA From ZOLOFT Adverse Reaction (Severe, Uncoded 05/08/23 15:55) TACHYCARDIA From TORADOL Adverse Reaction (Mild, Uncoded 05/08/23 15:55) STOMACH UPSET HPI HPI Follow Up 06/07/24 US: Details: Nisa presenting today for follow-up to her venous insufficiency ultrasound that was performed on June 07. She continues to have bilateral lower extremity swelling as well as pain when the swelling occurs. 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 [facility] Medical History Hepatic steatosis Migraines Asthma Recurrent UTI Adhesive capsulitis of right shoulder Fibromyalgia Unspecified internal derangement of unspecified knee Surgical History History of left oophorectomy Previous section History of partial hysterectomy Family History Father No problems noted. Mother No problems noted. 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 Reproductive History Menstrual Age of Menarche: 13 Review of Systems Const Reports as per HPI and Denies weakness ENT Reports Normal hearing present and Denies dizziness Card Reports as per HPI, Denies chest pain, Denies chest pain at rest, Denies chest pain with activity, Denies dyspnea and Denies dyspnea on exertion Resp Reports as per HPI, Denies cough, Denies dyspnea and Denies dyspnea on exertion GI Reports as per HPI, Denies abdominal pain, Denies nausea and Denies vomiting Musc Denies numbness Skin/Breast Reports as per HPI, Denies erythema and Denies wounds Neuro Reports Normal hearing present, Denies dizziness, Denies numbness, Denies Sensory deficit (Neuro) and Denies weakness Psych Reports no additional complaints Endo Reports no additional complaints Physical Exam Const General: healthy appearing and no acute distress Orientation/consciousness: patient oriented x3 HEENT Head: Yes normal to inspection Ears: hearing grossly normal bilaterally Mouth: Normal oral and palatal mucosa present Resp Effort & Inspection: normal respiratory effort and able to speak in complete sentences Auscultation: clear to auscultation bilaterally Cardio Jugular venous distension: no JVD Rate: regular rate Rhythm: regular rhythm Heart sounds: S1 normal heart sound present and S2 normal heart sound present Bruits: no abdominal aortic bruits, no carotid bruits, no femoral bruits and no renal bruits Peripheral pulses: Peripheral pulses 2+ throughout GI Inspection: Yes normal to inspection Palpation (GI): No Abdominal aortic bruit present Skin General skin exam: no rashes or lesions noted Wounds: no wounds Hair: normal Neuro General: patient oriented x3 Cranial nerves: Yes Normal hearing present Cognition (Neuro): normal cognition Gait exam (Neuro): Normal gait present Motor exam (neuro): 5/5 motor strength present throughout Sensory Exam: No Sensory deficit (Neuro) Extrem Other: Bilateral lower extremities: Trace peripheral edema noted bilaterally. Palpable DP pulses. General: Yes normal to inspection, Yes full ROM, Yes capillary refill normal and Yes normal gait Results Reviewed Results Reviewed: Brief summary of venous insufficiency testing is as follows: right great saphenous vein: negative right small saphenous vein: negative right accessory vein: none present left great saphenous vein: negative left small saphenous vein: negative left accessory vein: none present Please note there is no evidence of any venous aneurysms or significant tortuosity Assessment & Plan Assessment & Plan (1) Varicose veins of both lower extremities with inflammation: Code(s): I83.11 - Varicose veins of right lower extremity with inflammation; I83.12 - Varicose veins of left lower extremity with inflammation Category: Medical Plan: Nisa presenting today for review of her venous insufficiency ultrasound, performed on June 07. There was no venous insufficiency found. We discussed the results with the patient, who seemed relieved, but frustrated due to not knowing a cause for her ongoing swelling and pain. We discussed that she should reach back out to her PCP to get further evaluation and treatment. We discussed continuing with compression stockings and elevation to help with the swelling. We discussed if her varicose veins continue or worsen, she can reach out to us any point. Thank you for the consult. If there are any questions or concerns, please do not hesitate to reach back out to us. Coding Level of Care Code Est Pt Level 4 (41948) Diagnoses Varicose veins of both lower extremities with inflammation I83.11; I83.12 Comment Review of venous insufficiency ultrasound
== END 2024-06-15 13:13 | disposition home or self-care (01) ==
PROVIDERS: PCP Internal Medicine; Visit Provider Physician Assistant Surgical
DX: I83.11 Varicose veins of right lower extremity with inflammation (principal); I83.12 Varicose veins of left lower extremity with inflammation
CPT/HCPCS: 99214

== ENCOUNTER → 2024-06-15 12:40 | Outpatient (BNVA) | payer MEDICAID, SELFPAY | PROVIDERS: PCP Internal Medicine; Visit Provider Physician Assistant Surgical | DX: I83.11 Varicose veins of right lower extremity with inflammation (principal); I83.12 Varicose veins of left lower extremity with inflammation | CPT/HCPCS: 99212 ==

== ENCOUNTER 2024-07-13 15:51 | Outpatient (REF) | payer MEDICAID, SELFPAY | END 2024-07-13 15:52 | disposition home or self-care (01) | LOC: HO.CT 15:51 | PROVIDERS: PCP Internal Medicine; Visit Provider Internal Medicine | DX: R41.3 Other amnesia (principal) | CPT/HCPCS: 70450 ==

== ENCOUNTER → 2024-07-13 15:53 | Outpatient (BNV) | payer MEDICAID, SELFPAY | PROVIDERS: PCP Internal Medicine; Visit Provider Radiology Diagnostic Radiology | DX: R41.3 Other amnesia (principal) | CPT/HCPCS: 70450 ==

== ENCOUNTER 2024-07-29 12:35 | Outpatient (AMB) | payer MEDICAID, SELFPAY ==
[2024-07-29 12:37] VITALS: BP 115/80; PULSE 73; O2SAT 98; BMI 32.2
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
== END 2024-07-29 13:38 | disposition home or self-care (01) ==
PROVIDERS: PCP Internal Medicine; Visit Provider Physician Assistant Medical
DX: G47.10 Hypersomnia, unspecified (principal); M54.2 Cervicalgia; R53.83 Other fatigue; G47.9 Sleep disorder, unspecified
CPT/HCPCS: 99214

== ENCOUNTER 2024-07-29 12:35 | Outpatient (REF) | payer MEDICAID, SELFPAY ==
[2024-07-29 15:26] LABS: Vitamin D 25-OH Total 22.6 ng/mL (>30)
== END 2024-07-29 12:36 | disposition home or self-care (01) ==
LOC: HO.LAB 12:35
PROVIDERS: PCP Internal Medicine; Visit Provider Physician Assistant Medical
DX: G47.10 Hypersomnia, unspecified (principal); R53.83 Other fatigue; M54.2 Cervicalgia
CPT/HCPCS: 36415; 82306; 99212

== ENCOUNTER 2024-08-26 14:26 | Outpatient (REF) | payer MEDICAID, SELFPAY ==
--- OUTSIDE RECORDS SUMMARY | 2024-08-26 18:23 | XMS_ITS | Encounter Summary ---
Author Organization [employer] Address [address] [place] [address] Care Team Providers Care Overcaster Name Role Phone Adal Terrell MD Primary Care Provide r Encounter Details Date Type Department Care Team ([facility] st Contact Info) Description 02/05/2024 Orders Only [facility] MEDICINE [address] [place] [address] Adal Terrell MD [address] [place] [address] Social History Tobacco Use Types Packs/Day Years Used Date Smoking Tobacco: Never Passive Smoke Exposure: Never Smokeless Tobacco: Never Alcohol Use Standard Drinks/Week Comments Never 0 (1 standard drink = 0.6 oz pur e alcohol) Depression Answer Date Recorded Patient Health Questionnaire-9 Score 5 01/27/2024 Patient Health Questionnaire-9 Score 5 01/27/2024 Last PHQ-9: Questionnaire Data Not on file 0 01/27/2024 Housing Stability Answer Date Recorded What is your housing situation today? I have amada edmond 01/27/[address] you li ve. Do you have problems with any of the following? None of the above 01/27/2024 Food Insecurity Answer Date Recorded Within the past 12 months, y ou worried that your food would run out before you got money to buy more: Never True 01/27/2024 Within the past 12 months,th e food you bought just didn't last and you didn't have enough money to get more: Never True 08/2023 Transportation Answer Date Recorded In the past 12 months, has l ack of transportation kept you from medical appts, meetings, work or from getting things needed for daily living? No 01/27/2024 Utilities Answer Date Recorded In the past 12 months, has t he electric, gas, oil or water company threatened to shut off services in your home? No 01/27/2024 Depression Answer Date Recorded Patient Health Questionnaire-2 Score 1 01/27/2024 Comments Unknown Sex and Gender Information Value Date Recorded Sex Assigned at Female 05/27/2022 10:17 AM EDT Legal Sex Female 10:17 AM EDT Gender Identity Female 05/27/2022 10:17 AM EDT Sexual Orientation Bisexual 05/27/2022 10 :17 AM EDT documented as of this encounter Plan of Treatment Upcoming Encounters Date Type Department Care Team (Late st Contact Info) Description 09/08/2024 2:15 PM EST Clinical Support [facility] PEDS [address] [place] [address] Marci Kennedy, RN [address] [place] [address] 09/09/2024 3:00 PM EST Office Visit [facility] [address] [place] [address] Adal Terrell MD [address] [place] [phone] documented as of this encounter Procedures Procedure Name Priority Date/Time Associated Diagnosis Comments HM COLONOSCOPY Routine 08/31/2018 3:43 PM EST documented in this encounter Results * Hm Colonoscopy (08/31/2018 3:43 PM EST) Adal Mccarthy MD HEALTH MAINTENANCE Fi nal Result documented in this encounter Visit Diagnoses Not on filedocumented in this encounter Additional Health Concerns Assessment Noted Time PHQ-9 Depression Total Score: 5 01/27/20 24 10:54 AM EDT documented as of this encounter Care Teams Overcaster Relationship Specialty Start Date End Date Adal Terrell MD [address] [place] [address] PCP - General Internal Medicine 03/08/14 documented as of this encounter
--- OUTSIDE RECORDS SUMMARY | 2024-08-26 18:23 | XMS_ITS | Encounter Summary ---
Author Organization [employer] Address [address] [facility] [address] 7[address] [place] [address] Care Team Providers Care Remelter Name Role Phone Adal Terrell MD Primary Care Provide r Reason for Visit * Reason Onset Date Comments Appointment Request 03/19/2023 Encounter Details Date Type Department Care Team ([facility] st Contact Info) Description 03/19/2023 Telephone [facility] [address] [place] [address] [phone] Adal Terrell MD 230 [place] [address] Appointment Request Social History Tobacco Use Types Packs/Day Years Used Date Smoking Tobacco: Never Passive Smoke Exposure: Never Smokeless Tobacco: Never Depression Answer Date Recorded Patient Health Questionnaire-9 Score 0 09/10/2022 Depression Answer Date Recorded Patient Health Questionnaire-2 Score 0 09/10/2022 Comments Unknown Sex and Gender Information Value Date Recorded Sex Assigned at Female 05/27/2022 10:17 AM EDT Legal Sex Female 10:17 AM EDT Gender Identity Female 05/27/2022 10:17 AM EDT Sexual Orientation Bisexual 05/27/2022 10 :17 AM EDT documented as of this encounter Miscellaneous Notes * Telephone Encounter - Geethaketurahkirk Elizabeth Eric - 03/19/2023 9:53 AM EDT Tc from pt requesting to r/s PALEOBOTANIST visit on 03/21/2023 @ 11:30 am. Pt states due to an emergency she has to fly out to [place] and won't be back in two weeks. Please contact pt at [phone] documented in this encounter Plan of Treatment Upcoming Encounters Date Type Department Care Team (Late st Contact Info) Description 09/08/2024 2:15 PM EST Clinical Support [facility] 505 [place] [address] Marci Kennedy, RN 505 [place] [address] 09/09/2024 3:00 PM EST Office Visit [facility] [address] [place] [address] Adal Terrell MD 230 [place] [address] documented as of this encounter Visit Diagnoses Not on filedocumented in this encounter Additional Health Concerns Assessment Noted Time PHQ-9 Depression Total Score: 0 09/10/19 11:00 AM EST documented as of this encounter Care Teams Remelter Relationship Specialty Start Date End Date Adal Terrell MD 230 [place] [address] PCP - General Internal Medicine 03/08/14 documented as of this encounter
--- OUTSIDE RECORDS SUMMARY | 2024-08-26 18:23 | XMS_ITS | Encounter Summary ---
Author Organization [employer] Address 75 [facility] [place] [address] Care Team Providers Care Pattern Shop Supervisor Name Role Phone Adal Terrell MD Primary Care Provide r Reason for Visit * Reason Onset Date Comments Med Refill 02/09/2024 Encounter Details Date Type Department Care Team ([facility] Contact Info) Description 02/09/2024 Telephone [facility] [address] [place] [address] Adal Terrell MD 230 [place] [address] Med Refill Social History Tobacco Use Types Packs/Day Years [...] encounter Miscellaneous Notes * Telephone Encounter - Hazel Larose - 02/09/2024 11:19 AM EDT TC from pt requesting medication refill. Medications needing refill : oxyCODONE (Roxicodone) 5 MG immediate release tablet To be sent to: [id number] [place], [place] - [address] [facility] documented in this encounter Plan of Treatment Upcoming Encounters Date Type Department Care Team (Late st Contact Info) Description 09/08/2024 2:15 PM EST Clinical Support [facility] [address] [place] [address] Marci Kennedy, YANET 505 [place] [address] 09/09/2024 3:00 PM EST Office Visit [facility] [address] [place] [address] Adal Terrell MD 230 [place], [place] [phone] documented as of this encounter Visit Diagnoses Not on filedocumented in this encounter Additional Health Concerns Assessment Noted Time PHQ-9 Depression Total Score: 5 01/27/20 24 10:54 AM EDT documented as of this encounter Care Teams Pattern Shop Supervisor Relationship Specialty Start Date End Date Adal Terrell MD 230 [place] [address] PCP - General Internal Medicine 03/08/14 documented as of this encounter
--- OUTSIDE RECORDS SUMMARY | 2024-08-26 18:23 | XMS_ITS | Encounter Summary ---
Author Organization [employer] Address [address] [facility] [address]t [place] [address] Care Team Providers Care Blood Bank Business Manager Name Role Phone Adal Terrell MD Primary Care Provide r Encounter Details Date Type Department Care Team (Late st Contact Info) Description 02/16/2024 Orders Only [facility] 230 [place], [place] [phone] Provider, MD Tong Social History Tobacco Use Types Packs/Day Years [...] Description 09/08/2024 2:15 PM EST Clinical Support [facility] 505 [place] [address] Marci Kennedy, YANET 505 [place] [address] 09/09/2024 3:00 PM EST Office Visit [facility] 230 [place] [address] Adal Terrell MD 230 [place] [address] documented as of this encounter Procedures Procedure Name Priority Date/Time Associated Diagnosis Comments TISSUE PATHOLOGY Routine 08/07/2018 10:43 AM EST documented in this encounter Results * Tissue Pathology (08/07/2018 10:43 AM EST) Tissue Historical Provider LAB PATHOLOGY ORDERABLES Final Result documented in this encounter Visit Diagnoses Not on filedocumented in this encounter Additional Health Concerns Assessment Noted Time PHQ-9 Depression Total Score: 5 01/27/20 24 10:54 AM EDT documented as of this encounter Care Teams Blood Bank Business Manager Relationship Specialty Start Date End Date Adal Terrell MD [address] [place] [address] PCP - General Internal Medicine 03/08/14 documented as of this encounter
--- OUTSIDE RECORDS SUMMARY | 2024-08-26 18:23 | XMS_ITS | Encounter Summary ---
Author Organization [employer] Address 75 [facility] 7t [place] [address] Care Team Providers Care Professional Services Consultant Name Role Phone Adal Terrell MD Primary Care Provide r Reason for Visit * Reason Onset Date Comments Med Refill 01/02/2023 Encounter Details Date Type Department Care Team ([facility] st Contact Info) Description 01/02/2023 Telephone [facility] [address] [place] [address] [phone] Adal Terrell MD 230 [place] [address] Med Refill Social History Tobacco Use Types Packs/Day Years Used Date Smoking Tobacco: Never Smokeless Tobacco: Never Depression Answer Date Recorded Patient Health Questionnaire-9 Score 0 09/10/2022 Depression Answer Date Recorded Patient Health Questionnaire-2 Score 0 09/10/2022 Comments Unknown Sex and Gender Information Value Date Recorded Sex Assigned at Female 05/27/2022 10:17 AM EDT Legal Sex Female 10:17 AM EDT Gender Identity Female 05/27/2022 10:17 AM EDT Sexual Orientation Bisexual 05/27/2022 10 :17 AM EDT COVID-19 Exposure Response Date Recorded In the last 10 days, have yo u been in contact with someone who was confirmed or suspected to have Coronavirus/COVID-19? No / Unsure 12/17/2022 10:46 AM EDT documented as of this encounter Miscellaneous Notes * Telephone Encounter - Fiorella Shant - 01/02/2023 9:46 AM EDT Tc from pt requesting medication refill on oxyCODONE (Roxicodone) 5 MG immediate release tablet documented in this encounter Plan of Treatment Upcoming Encounters Date Type Department Care Team (Late st Contact Info) Description 09/08/2024 2:15 PM EST Clinical Support [facility] 505 [place] [address] Marci Kennedy, RN 505 [place] [address] 09/09/2024 3:00 PM EST Office Visit [facility] [address] [place] [address] Adal Terrell MD [address] [place] [address] documented as of this encounter Visit Diagnoses Not on filedocumented in this encounter Additional Health Concerns Assessment Noted Time PHQ-9 Depression Total Score: 0 09/10/19 11:00 AM EST documented as of this encounter Care Teams Professional Services Consultant Relationship Specialty Start Date End Date Adal Terrell MD 230 [place] [address] PCP - General Internal Medicine 03/08/14 documented as of this encounter
--- OUTSIDE RECORDS SUMMARY | 2024-08-26 18:23 | XMS_ITS | Encounter Summary ---
Author Organization [employer] Address [address] [facility] [address] 7[address] [place] [address] Care Team Providers Care Modern Greek Studies Professor Name Role Phone Adal Terrell MD Primary Care Provide r Reason for Visit * Reason Onset Date Comments Nurse Triage 03/05/2024 Encounter Details Date Type Department Care Team ([facility] st Contact Info) Description 03/05/2024 Telephone [facility] 230 [place], [place] [phone] Adal Terrell MD 230 [place] [address] Nurse Triage Social History Tobacco Use Types Packs/Day Years [...] encounter Miscellaneous Notes * Telephone Encounter - Shahla Delacruz - 03/05/2024 9:54 AM EDT Symptom: Medication Reaction Outcome: Schedule an urgent appointment (within 1 hour) or talk to a nurse or provider soon Reason: Caller denied all higher acuity questions The caller accepted this outcome documented in this encounter Plan of Treatment Upcoming Encounters Date Type Department Care Team (Late st Contact Info) Description 09/08/2024 2:15 PM EST Clinical Support [facility] 505 [place] [address] Marci Kennedy, RN 505 [place] [address] 09/09/2024 3:00 PM EST Office Visit [facility] 230 [place] [address] Adal Terrell MD [address] [place] [address] documented as of this encounter Visit Diagnoses Not on filedocumented in this encounter Additional Health Concerns Assessment Noted Time PHQ-9 Depression Total Score: 5 01/27/20 24 10:54 AM EDT documented as of this encounter Care Teams Modern Greek Studies Professor Relationship Specialty Start Date End Date Adal Terrell MD [address] [place] [address] PCP - General Internal Medicine 03/08/14 documented as of this encounter
--- OUTSIDE RECORDS SUMMARY | 2024-08-26 18:23 | XMS_ITS | Encounter Summary ---
Author Organization [employer] Address [address] [facility] [address] 7[address] [place] [address] Care Team Providers Care Demonstrator Sales Name Role Phone Adal Terrell MD Primary Care Provide r Reason for Visit * Reason Onset Date Comments Med Refill 01/31/2023 Encounter Details Date Type Department Care Team ([facility] st Contact Info) Description 01/31/2023 Telephone [facility] 230 [place] [address] Adal Terrell MD [address] [place] [address] Med Refill Social History Tobacco Use Types [...] Recorded Patient Health Questionnaire-2 Score 1 01/27/2024 Internet Access Answer Date Recorded Internet Access Q1 Yes 03/26/2024 Internet Access Q2 Not on file 03/26/2024 Comments Unknown Sex and Gender Information Value Date Recorded Sex Assigned at Female 05/27/2022 10:17 AM EDT Legal Sex Female 10:17 AM EDT Gender Identity Female 05/27/2022 10:17 AM EDT Sexual Orientation Bisexual 05/27/2022 10 :17 AM EDT documented as of this encounter Miscellaneous Notes * Telephone Encounter - Mela Ji - 01/31/2023 1:35 PM EDT Tc from pt requesting a med refill for oxycodone 5 mg documented in this encounter Plan of Treatment Upcoming Encounters Date Type Department Care Team (Late st Contact Info) Description 09/08/2024 2:15 PM EST Clinical Support [facility] 505 [place] [address] Marci Kennedy, RN 505 [place] [address] 09/09/2024 3:00 PM EST Office Visit [facility] 230 [place] [address] Adal Terrell MD 230 [place] [address] documented as of this encounter Visit Diagnoses Not on filedocumented in this encounter Additional Health Concerns Assessment Noted Time PHQ-9 Depression Total Score: 0 09/10/19 23 11:00 AM EST documented as of this encounter Care Teams Demonstrator Sales Relationship Specialty Start Date End Date Adal Terrell MD 230 [place], [place] [phone] PCP - General Internal Medicine 03/08/14 documented as of this encounter
--- OUTSIDE RECORDS SUMMARY | 2024-08-26 18:23 | XMS_ITS | Encounter Summary ---
Author Organization [employer] Address 75 [facility] 7[address] [place] [address] Care Team Providers Care Assistant Press Operator Offset Name Role Phone Adal Terrell MD Primary Care Provide r Reason for Visit * Reason Onset Date Comments Med Refill 11/05/2022 Encounter Details Date Type Department Care Team (Late Contact Info) Description 11/05/2022 Telephone [facility]INE [address] [place] [address] Adal Terrell MD 230 [place] [address] Med Refill Social History Tobacco Use Types [...] encounter Miscellaneous Notes * Telephone Encounter - Medhat Lees - 11/05/2022 10:49 AM EDT Tc from pt requesting med refill Oxycodone 5 mg documented in this encounter Plan of Treatment Upcoming Encounters Date Type Department Care Team (Late Contact Info) Description 09/08/2024 2:15 PM EST Clinical Support [facility] [address] [place] [address] Marci Kennedy, RN 505 [place] [address] 09/09/2024 3:00 PM EST Office Visit [facility] 230 [place] [address] Adal Terrell MD 230 [place] [address] documented as of this encounter Visit Diagnoses Not on filedocumented in this encounter Additional Health Concerns Assessment Noted Time PHQ-9 Depression Total Score: 0 09/10/19 23 11:00 AM EST documented as of this encounter Care Teams Assistant Press Operator Offset Relationship Specialty Start Date End Date Adal Terrell MD [address] [place] [address] PCP - General Internal Medicine 03/08/14 documented as of this encounter
--- OUTSIDE RECORDS SUMMARY | 2024-08-26 18:24 | XMS_ITS | Encounter Summary ---
Author Organization [employer] Address [address] [facility] [address] 7[address] [place] [address] Care Team Providers Care Paint Roller Winder Name Role Phone Adal Terrell MD Primary Care Provide r Reason for Visit * Reason Comments Med Refill Encounter Details Date Type Department Care Team ([facility] st Contact Info) Description 07/23/2023 Refill [facility] 230 [place], [place] [phone] Adal Terrell MD 230 [place], [place] [phone] Chronic right-sided low back pain with right-sided sciatica; Sacroiliac joint dysfunction Social History Tobacco Use Types Packs/Day Years Used Date Smoking Tobacco: Never Passive Smoke Exposure: Never Smokeless Tobacco: Never Alcohol Use Standard Drinks/Week Comments Never 0 (1 standard drink = 0.6 oz pur e alcohol) Depression Answer Date Recorded Patient Health Questionnaire-9 Score 0 09/10/2022 Housing Stability Answer Date Recorded What is your housing situation today? I have amdaa edmond 05/12/[address] you li ve. Do you have problems with any of the following? None of the above 05/12/2023 Food Insecurity Answer Date Recorded Within the past 12 months, y ou worried that your food would run out before you got money to buy more: Never True 05/12/2023 Within the past 12 months,th e food you bought just didn't last and you didn't have enough money to get more: Never True Transportation Answer Date Recorded In the past 12 months, has l ack of transportation kept you from medical appts, meetings, work or from getting things needed for daily living? No 05/12/2023 Utilities Answer Date Recorded In the past 12 months, has t he electric, gas, oil or water company threatened to shut off services in your home? No 05/12/2023 Depression Answer Date Recorded Patient Health Questionnaire-2 [...] Description 09/08/2024 2:15 PM EST Clinical Support [facility] 505 [place] [address] Marci Kennedy, RN 505 [place] [address] 09/09/2024 3:00 PM EST Office Visit [facility] 230 [place] [address] Adla Terrell MD [address] [place] [address] documented as of this encounter Visit Diagnoses Diagnosis Chronic right-sided low back pain with right-sided sciatica Sacroiliac joint dysfunction Nonallopathic lesion of sacral region, not elsewhere classified documented in this encounter Additional Health Concerns Assessment Noted Time PHQ-9 Depression Total Score: 0 09/10/19 23 11:00 AM EST documented as of this encounter Care Teams Paint Roller Winder Relationship Specialty Start Date End Date Adal Terrell MD 230 [place] [address] PCP - General Internal Medicine 03/08/14 documented as of this encounter
--- OUTSIDE RECORDS SUMMARY | 2024-08-26 18:24 | XMS_ITS | Encounter Summary ---
Author Organization [employer] Address 75 [facility] 7t [place] [address] Care Team Providers Care Editorial Project Manager Name Role Phone Adal Terrell MD Primary Care Provide r Reason for Visit * Reason Onset Date Comments Med Refill 07/23/2023 Encounter Details Date Type Department Care Team ([facility] st Contact Info) Description 07/23/2023 Refill [facility] MEDICINE 230 [place] [address] Adal Terrell MD [address] [place] [address] Chronic right-sided low back pain with right-sided [...] encounter Miscellaneous Notes * Telephone Encounter - Veronica Rg LPN - 07/23/2023 10:17 AM EST Last seen 07/08/23. * Telephone Encounter - Mela Ji - 07/23/2023 10:07 AM EST Tc from pt requesting a refill for methocarbamol (Robaxin) 750 MG tablet documented in this encounter Plan of Treatment Upcoming Encounters Date Type Department Care Team (Late st Contact Info) Description 09/08/2024 2:15 PM EST Clinical Support [facility] PEDS [address] [place] [address] Marci Kennedy, YANET 505 [place] [address] 09/09/2024 3:00 PM EST Office Visit [facility] MEDICINE [address] [place] [address] Adal Terrell MD [address] [place] [address] documented as of this encounter Visit Diagnoses Diagnosis Chronic right-sided low back pain with right-sided sciatica Sacroiliac joint dysfunction Nonallopathic lesion of sacral region, not elsewhere classified documented in this encounter Additional Health Concerns Assessment Noted Time PHQ-9 Depression Total Score: 0 09/10/19 23 11:00 AM EST documented as of this encounter Care Teams Editorial Project Manager Relationship Specialty Start Date End Date Adal Terrell MD [address] [place] [address] PCP - General Internal Medicine 03/08/14 documented as of this encounter
--- OUTSIDE RECORDS SUMMARY | 2024-08-26 18:24 | XMS_ITS | Encounter Summary ---
Author Organization [employer] Address [address] [facility] [address] [place] [address] Care Team Providers Care Premium Representative Name Role Phone Adal Terrell MD Primary Care Provide r Reason for Visit * Reason Onset Date Comments Med Refill 04/27/2024 Encounter Details Date Type Department Care Team ([facility] Contact Info) Description 04/27/2024 Telephone [facility] 230 [place] [address] Adal Terrell MD [address] [place] [address] Med Refill Social History Tobacco Use Types [...] * Telephone Encounter - Mela Ji - 04/27/2024 9:45 AM EDT Tc from pt requesting a refill for oxyCODONE (Roxicodone) 5 MG immediate release tablet documented in this encounter Plan of Treatment Upcoming Encounters Date Type Department Care Team (Late st Contact Info) Description 09/08/2024 2:15 PM EST Clinical Support [facility] 505 [place] [address] Marci Kennedy, RN 505 [place] [address] 09/09/2024 3:00 PM EST Office Visit [facility] 230 [place] [address] Adal Terrell MD [address] [place] [address] documented as of this encounter Visit Diagnoses Not on filedocumented in this encounter Additional Health Concerns Assessment Noted Time PHQ-9 Depression Total Score: 5 01/27/20 24 10:54 AM EDT documented as of this encounter Care Teams Premium Representative Relationship Specialty Start Date End Date Adal Terrell MD [address] [place] [address] PCP - General Internal Medicine 03/08/14 documented as of this encounter
--- OUTSIDE RECORDS SUMMARY | 2024-08-26 18:24 | XMS_ITS | Encounter Summary ---
Author Organization [employer] Address [address] [facility] [address] [place] [address] Care Team Providers Care Guest Room Attendant Name Role Phone Adal Terrell MD Primary Care Provide r Reason for Visit * Reason Onset Date Comments Med Refill 03/08/2024 Encounter Details Date Type Department Care Team ([facility] st Contact Info) Description 03/08/2024 Telephone [facility] MEDICINE 230 [place] [address] Adal Terrell MD [address] [place] [address] Med Refill Social History Tobacco Use Types [...] encounter Miscellaneous Notes * Telephone Encounter - Reyes Cooley - 03/08/2024 9:30 AM EDT TC from pt requesting medication refill. Medications needing refill : oxyCODONE (Roxicodone) 5 MG immediate release tablet To be sent to: [facility] documented in this encounter Plan of Treatment Upcoming Encounters Date Type Department Care Team (Late st Contact Info) Description 09/08/2024 2:15 PM EST Clinical Support [facility] MED [facility] PEDS 505 [place] [address] Marci Kennedy, RN 505 [place] [address] 09/09/2024 3:00 PM EST Office Visit [facility] MEDICINE 230 [place] [address] Adal Terrell MD [address] [place] [address] documented as of this encounter Visit Diagnoses Not on filedocumented in this encounter Additional Health Concerns Assessment Noted Time PHQ-9 Depression Total Score: 5 01/27/20 24 10:54 AM EDT documented as of this encounter Care Teams Guest Room Attendant Relationship Specialty Start Date End Date Adal Terrell MD 230 [place] [address] PCP - General Internal Medicine 03/08/14 documented as of this encounter
--- OUTSIDE RECORDS SUMMARY | 2024-08-26 18:24 | XMS_ITS | Clinical Summary ---
Author Organization [facility] it Address [address] [place] [address] Care Team Providers Care Bulb Packer Name Role Phone Unavailable Primary Care Provider Unavailabl e Social History Tobacco Use Types Packs/Day Years Used Date Smoking Tobacco: Never Assessed Sex and Gender Information Value Date Recorded Sex Assigned at Not on file Gender Identity Not on file Sexual Orientation Not on file Plan of Treatment Health Maintenance Due Date Last Done Comments Breast Cancer Screening 1976 DTaP,Tdap,and Td Vaccines (1 - Tdap) 11/07/1995 Hepatitis B Vaccines (1 of 3 - 19+ 3-dose series) 11/07/1995 Cervical Cancer Screening: P ap Smear 1997 COVID-19 Vaccine ( - 2023-2 5 season) 2024 Influenza Vaccine (#1) 2024 HIB Vaccines Aged Out No longer eligi ble based on patient's age to complete this topic HPV Vaccines Aged Out No longer eligi ble based on patient's age to complete this topic Hepatitis A Vaccines Aged Out No long er eligible based on patient's age to complete this topic IPV Vaccines Aged Out No longer eligi ble based on patient's age to complete this topic MMR Vaccines Aged Out No longer eligi ble based on patient's age to complete this topic Meningococcal ACWY Vaccine Aged Out N o longer eligible based on patient's age to complete this topic Pneumococcal Vaccine: Pediat rics (0 to 5 Years) and At-Risk Patients (6 to 64 Years) Aged Out No longer eligible b ased on patient's age to complete this topic RSV Immunization Patients Un geraldine 20 months Aged Out No longer eligible b ased on patient's age to complete this topic Varicella Vaccines Aged Out No longer eligible based on patient's age to complete this topic Advance Directives Documents on File Type Date Recorded 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
--- OUTSIDE RECORDS SUMMARY | 2024-08-26 18:24 | XMS_ITS | Encounter Summary ---
Author Organization [employer] Address [address] [facility] 7t [place] [address] Care Team Providers Care Lighting Director Name Role Phone Adal Terrell MD Primary Care Provide r Reason for Visit * Reason Onset Date Comments Appointment Request 10/29/2022 Encounter Details Date Type Department Care Team ([facility] st Contact Info) Description 10/29/2022 Telephone [facility] MEDICINE [address] [place] [address] Adal Terrell MD [address] [place] [address] Appointment Request Social History Tobacco Use Types [...] encounter Miscellaneous Notes * Telephone Encounter - Liam Reyes - 10/29/2022 3:36 PM EDT Tc from pt requesting an appt with provider. Pt was unclear in why appt was needed all that it was personal and would talk only with him. Please contact pt at [phone] documented in this encounter Plan of Treatment Upcoming Encounters Date Type Department Care Team (Late st Contact Info) Description 09/08/2024 2:15 PM EST Clinical Support [facility] CHC MED & PEDS [address] [place] [address] Marci Kennedy, RN [address] [place] [address] 09/09/2024 3:00 PM EST Office Visit [facility] MEDICINE [address] [place] [address] Adal Terrell MD [address] [place] [address] documented as of this encounter Visit Diagnoses Not on filedocumented in this encounter Additional Health Concerns Assessment Noted Time PHQ-9 Depression Total Score: 0 09/10/19 23 11:00 AM EST documented as of this encounter Care Teams Lighting Director Relationship Specialty Start Date End Date Adal Terrell MD [address] [place] [address] PCP - General Internal Medicine 03/08/14 documented as of this encounter
--- OUTSIDE RECORDS SUMMARY | 2024-08-26 18:24 | XMS_ITS | Encounter Summary ---
Author Organization [employer] Address [address] [facility] [address] 7[address] [place] [address] Care Team Providers Care Program Counselor Name Role Phone Adal Terrell MD Primary Care Provide r Reason for Visit * Reason Comments Med Refill Encounter Details Date Type Department Care Team ([facility] st Contact Info) Description 04/05/2024 Refill [facility] MEDICINE [address] [place], [place] [phone] Ronel Thomas, ANP [address] [place] [address] COVID-19 Social History Tobacco Use Types Packs/Day Years [...] Description 09/08/2024 2:15 PM EST Clinical Support [facility] MED & PEDS [address] [place] [address] Marci Kennedy, YANET [address] [place] [address] 09/09/2024 3:00 PM EST Office Visit [facility] MEDICINE [address] [place] [address] Adal Terrell MD [address] [place] [address] documented as of this encounter Visit Diagnoses Diagnosis COVID-19 documented in this encounter Additional Health Concerns Assessment Noted Time PHQ-9 Depression Total Score: 5 01/27/20 24 10:54 AM EDT documented as of this encounter Care Teams Program Counselor Relationship Specialty Start Date End Date Adal Terrell MD [address] [place] [address] PCP - General Internal Medicine 03/08/14 documented as of this encounter
--- OUTSIDE RECORDS SUMMARY | 2024-08-26 18:24 | XMS_ITS | Encounter Summary ---
Author Organization [employer] Address [address] [facility] [address] 7[address] [place] [address] Care Team Providers Care Holistic Specialist Name Role Phone Adal Terrell MD Primary Care Provide r Encounter Details Date Type Department Care Team (Late st Contact Info) Description 07/29/2024 Orders Only GENERIC EXTERNAL DATA DEPARTMENT Provider, Generic External Data Social History Tobacco Use Types Packs/Day Years [...] as of this encounter Miscellaneous Notes * Result Encounter Note - Adal Mccarthy MD - 07/29/2024 3:26 PM EST Please contact patient to let her know her Vitamin D is low ( lower than last year) . Please assesscompliance with Vitamin D daily supplement that she is supposed to be taking. If she has not been compliant please educate about the importance of compliance with medication. If pt has been compliant, please let me know so we can send a loading dose of Vitamin D documented in this encounter Plan of Treatment Upcoming Encounters Date Type Department Care Team (Late st Contact Info) Description 09/08/2024 2:15 PM EST Clinical Support [facility] CHC MED & PEDS [address] [place] [address] Marci Kennedy, RN [address] [place] [address] 09/09/2024 3:00 PM EST Office Visit [facility] MEDICINE [address] [place] [address] Adal Terrell MD [address] [place] [address] documented as of this encounter Procedures Procedure Name Priority Date/Time Associated Diagnosis Comments VITAMIN D,25-OH,TOTAL,IA Routine 07/29/2024 2:14 PM EST documented in this encounter Results * (ABNORMAL) Vitamin D, 25-Hydroxy, Total, Immunoassay (07/29/2024 2:14 PM EST) Vitamin D 25-OH Total 22.6(L) >30 ng/mL [facility] Comment:Health Based Referen ce Values*< 20 ng/mL [id number] ng/mL Insufficient> 30 ng/mL Sufficient*Bertram GOLDBERG. N Engl J Med. 2007;357:266-280Care must be taken in interpreting Vitamin D results fromdifferent laboratories and methodologies. Published datademonstrated that results from patients undergoinghemodialysis may show a negative bias when tested withvarious automated 25-OH vitamin D assays when compared toLC-MS/MS.When testing samples from patients whose predominant form ofVitamin D is Vitamin D2, such as patients receiving VitaminD2 supplementation, results that are subtherapeutic shouldbe confirmed with another method such as LC-MS/MS. 07/29/2024 2:14 PM EST 07/29/2024 2:14 PM EST us Generic External Data Provider LAB BLOOD ORDERAB LES Final Result [facility] [address] [place] [address] [phone] documented in this encounter Visit Diagnoses Not on filedocumented in this encounter Additional Health Concerns Assessment Noted Time PHQ-9 Depression Total Score: 5 01/27/20 24 10:54 AM EDT documented as of this encounter Care Teams Holistic Specialist Relationship Specialty Start Date End Date Adal Terrell MD [address] [place] [address] PCP - General Internal Medicine 03/08/14 documented as of this encounter
--- OUTSIDE RECORDS SUMMARY | 2024-08-26 18:24 | XMS_ITS | Encounter Summary ---
Author Organization [employer] Address [address] [facility] [address] [facility] [facility] [address] [place] [address] Care Team Providers Care Morals Squad Police Officer Name Role Phone Adal Terrell MD Primary Care Provide r Reason for Visit * Reason Onset Date Comments Letter for School/Work 12/12/2023 Appointment Request 12/12/2023 Encounter Details Date Type Department Care Team ([facility] Contact Info) Description 12/12/2023 Telephone [facility] MEDICINE [address] [place], [place] [phone] Adal Terrell MD [address] [place] [address] Letter for School/Work; Appointment Request Social History Tobacco Use Types Packs/Day Years Used Date Smoking Tobacco: Never Passive Smoke Exposure: Never Smokeless Tobacco: Never Alcohol Use Standard Drinks/Week Comments Never 0 (1 standard drink = 0.6 oz pur e alcohol) Depression Answer Date Recorded Patient Health Questionnaire-9 Score 0 09/10/2022 Housing Stability Answer Date Recorded What is your housing situation today? I have amada edmond 05/12/[address] you [...] encounter Miscellaneous Notes * Telephone Encounter - Polly Carter RN - 12/15/2023 1:50 PM EDT Telephone call returned to patient in regards to below message. Patient verbalized understanding and denied having any further questions or concerns at this time. 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 for the reason on why is taking the oxyCODONE (Roxicodone) 5 MG immediate release tablet for school documented in this encounter Plan of Treatment Upcoming Encounters Date Type Department Care Team (Late st Contact Info) Description 09/08/2024 2:15 PM EST Clinical Support [facility] MED & PEDS [address] [place] [address] Marci Kennedy, YANET [address] [place] [address] 09/09/2024 3:00 PM EST Office Visit [facility] MEDICINE [address] [place] [address] Adal Terrell MD [address] [place] [address] documented as of this encounter Visit Diagnoses Not on filedocumented in this encounter Additional Health Concerns Assessment Noted Time PHQ-9 Depression Total Score: 0 09/10/19 23 11:00 AM EST documented as of this encounter Care Teams Morals Squad Police Officer Relationship Specialty Start Date End Date Adal Terrell MD [address] [place] [address] PCP - General Internal Medicine 03/08/14 documented as of this encounter
--- OUTSIDE RECORDS SUMMARY | 2024-08-26 18:25 | XMS_ITS | Encounter Summary ---
Author Organization [employer] Address [address] [facility] [address] 7[address] [place] [address] Care Team Providers Care Tab Builder Name Role Phone Adal Terrell MD Primary Care Provide r Reason for Visit * Reason Onset Date Comments Med Refill 08/17/2024 Encounter Details Date Type Department Care Team ([facility] st Contact Info) Description 08/17/2024 Refill [facility] MEDICINE [address] [place], [place] [phone] Adal Terrell MD [address] [place] [address] Chronic right-sided low back pain with right-sided sciatica Social History Tobacco Use Types Packs/Day Years [...] encounter Miscellaneous Notes * Telephone Encounter - Rhonda Mon RN - 08/17/2024 1:37 PM EST SUPERVISOR LABOR GANG checked. Pt last picked up 28 day refill of oxycodone 07/19/24. Earliest fill date yesterday 08/16/24. Scheduled for KENNEL WORKER appt 09/08/24. Refill appropriate. Queued * Telephone Encounter - Earnest Garcia - 08/17/2024 11:31 AM EST TC from pt requesting medication refill. Medications needing refill: oxyCODONE (Roxicodone) 5 MG immediate release tablet To be sent to: [id number] - [place] - [address] [facility] documented in this encounter Plan of Treatment Upcoming Encounters Date Type Department Care Team (Late st Contact Info) Description 09/08/2024 2:15 PM EST Clinical Support [facility] CHC MED & PEDS 505 [facility] [place] [phone] Marci Kennedy, RN [address] [place] [address] 09/09/2024 3:00 PM EST Office Visit [facility] MEDICINE [address] [place] [address] Adal Terrell MD [address] [place] [address] documented as of this encounter Visit Diagnoses Diagnosis Chronic right-sided low back pain with right-sided sciatica documented in this encounter Additional Health Concerns Assessment Noted Time PHQ-9 Depression Total Score: 5 01/27/20 24 10:54 AM EDT documented as of this encounter Care Teams Tab Builder Relationship Specialty Start Date End Date Adal Terrell MD [address] [place] [address] PCP - General Internal Medicine 03/08/14 documented as of this encounter
--- OUTSIDE RECORDS SUMMARY | 2024-08-26 18:25 | XMS_ITS | Clinical Summary ---
Author Organization [facility] Address [address] [place] [address] Care Team Providers Care Hand Shoes Sewer Name Role Phone Unavailable Primary Care Provider Unavailabl e Allergies No known active allergies Social History Tobacco Use Types Packs/Day Years Used Date Smoking Tobacco: Never Assessed Sex and Gender Information Value Date Recorded Sex Assigned at Not on file Gender Identity Not on file Sexual Orientation Not on file Last Filed Vital Signs Vital Sign Reading Time Taken Comments Blood Pressure 115/79 01/06/2022 4:18 PM EDT Pulse 98 01/06/2022 4:18 PM EDT Temperature 36.6 ??C (97.8 ??F) 01/06/2022 4:18 PM ED T Respiratory Rate - - Oxygen Saturation 98% 01/06/2022 4:18 PM EDT Inhaled Oxygen Concentration - - Weight 70.3 kg (155 lb) 01/06/2022 4:18 PM EDT Height 160 cm (5' 3 ) 01/06/2022 4:18 PM EDT Body Mass Index 27.46 01/06/2022 4:18 PM EDT Plan of Treatment Health Maintenance Due Date Last Done Comments Hepatitis C Virus Screening 1976 HIV Screening 1989 DTaP/Tdap/Td Vaccines (1 - Tdap) 11/07/1995 Hepatitis B Vaccines (1 of 3 - 19+ 3-dose series) 11/07/1995 Pap Smear (Ages 21-65) 1997 Mammogram 2016 Colonoscopy 2021 Influenza Vaccine 02/26/2024 COVID-19 Vaccine (1 - 2023-2 5 season) 2024 Pneumococcal Vaccine: Pediat douglas (0-5 Years) and At-Risk Patients (6 to 49 Years) Aged Out No longer eligible b ased on patient's age to complete this topic
--- OUTSIDE RECORDS SUMMARY | 2024-08-26 18:25 | XMS_ITS | Encounter Summary ---
Author Organization [employer] Address [address] [facility] [place] [address] Care Team Providers Care Grounds Worker Name Role Phone Adal Terrell MD Primary Care Provide r Reason for Visit * Reason Onset Date Comments Medication Question 08/02/2024 Encounter Details Date Type Department Care Team ([facility] st Contact Info) Description 08/02/2024 Refill [facility] MEDICINE [address] [place], [place] [phone] Adal Terrell MD [address] [place] [address] Social History Tobacco Use Types Packs/Day Years [...] as of this encounter Miscellaneous Notes * Addendum Note - Rhonda Mon RN - 08/03/2024 9:05 AM ESTAddended by: RHONDA MON on: 08/03/2024 09:05 AM Modules accepted: Orders * Telephone Encounter - Lori Villarreal RN - 08/02/2024 2:53 PM EST Telephone call to pt to advise that vitamin D levels are lower than last year. Pt reports not taking 50 mcg (2000UT) of Vit D pill daily, reports having had weekly 1.25mcg 02608VM Vit D pill in the past that she did take consistently. No active 2000 unit Vit D pill on current med list, old Rx from 07/19 with no refills, pt reports has some Vit D 2000UT but will need refill soon. Advised will sendrefill request to PCP. Card Grinder Helper advised her to take consistently to achieve normal levels especially at wintertime, pt verbalized understanding and said she will set reminder on cell phone. Pt to call clinic PRN. * Telephone Encounter - Lori Villarreal RN - 08/02/2024 2:51 PM EST ----- Message from Adal Mccarthy MD sent at 08/02/2024 2:31 PM EST ----- Please contact patient to let her know [...] Description 09/08/2024 2:15 PM EST Clinical Support [facility] CHC MED & PEDS [address] [place] [address] Marci Kennedy RN [address] [place] [address] 09/09/2024 3:00 PM EST Office Visit [facility] MEDICINE [address] [place] [address] Adal Terrell MD [address] [place] [address] documented as of this encounter Visit Diagnoses Not on filedocumented in this encounter Additional Health Concerns Assessment Noted Time PHQ-9 Depression Total Score: 5 01/27/20 24 10:54 AM EDT documented as of this encounter Care Teams Grounds Worker Relationship Specialty Start Date End Date Adal Terrell MD [address] [place] [address] PCP - General Internal Medicine 03/08/14 documented as of this encounter
--- OUTSIDE RECORDS SUMMARY | 2024-08-26 18:25 | XMS_ITS | Encounter Summary ---
Author Organization [employer] Address [address] [facility] [address] 7t [place] [address] Care Team Providers Care Medicaid Nurse Name Role Phone Adal Terrell MD Primary Care Provide r Reason for Visit * Reason Onset Date Comments Med Refill 06/16/2024 Encounter Details Date Type Department Care Team ([facility] Contact Info) Description 06/16/2024 Telephone [facility] MEDICINE [address] [place] [address] Adal Terrell MD [address] [place] [address] Med Refill Social History Tobacco Use Types [...] * Telephone Encounter - Mela Ji - 06/16/2024 3:16 PM EST Tc from pt requesting a refill for oxyCODONE (Roxicodone) 5 MG immediate release tablet , pt statedthey are aware it is a early request however they are due for 06/24/24 and due to holiday office will be closed. Please contact at [phone] documented in this encounter Plan of Treatment Upcoming Encounters Date Type Department Care Team (Late st Contact Info) Description 09/08/2024 2:15 PM EST Clinical Support [facility] CHC MED & PEDS [address] [place] [address] Marci Kennedy RN [address] [place] [address] 09/09/2024 3:00 PM EST Office Visit [facility] MEDICINE [address] [place], [place] [phone] Adal Terrell MD [address] [place] [address] documented as of this encounter Visit Diagnoses Not on filedocumented in this encounter Additional Health Concerns Assessment Noted Time PHQ-9 Depression Total Score: 5 01/27/20 24 10:54 AM EDT documented as of this encounter Care Teams Medicaid Nurse Relationship Specialty Start Date End Date Adal Terrell MD [address] [place] [address] PCP - General Internal Medicine 03/08/14 documented as of this encounter
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
--- OUTSIDE RECORDS SUMMARY | 2024-08-26 18:25 | XMS_ITS | Encounter Summary ---
Author Organization [employer] Address [address] [facility] [address] 7[address] [place] [address] Care Team Providers Care Home Housekeeper Name Role Phone Adal Terrell MD Primary Care Provide r Reason for Visit * Reason Onset Date Comments Results 08/13/2023 Encounter Details Date Type Department Care Team ([facility] Contact Info) Description 08/13/2023 Telephone [facility] MEDICINE [address] [place], [place] [phone] Adal Terrell MD [address] [place], [place] [phone] Results Social History Tobacco Use Types Packs/Day Years [...] Miscellaneous Notes * Telephone Encounter - Fiorella Bran - 08/13/2023 11:27 AM EST TC from pt requesting call back regarding Results. Pt is requesting to only speak with PCP. Type of results: MRI cervical spine Date when done: 08/08 Facility: [facility] documented in this encounter Plan of Treatment Upcoming Encounters Date Type Department Care Team (Late st Contact Info) Description 09/08/2024 2:15 PM EST Clinical Support [facility] CHC MED & PEDS [address] [place] [address] Marci Kennedy, RN [address] [place] [address] 09/09/2024 3:00 PM EST Office Visit [facility] MEDICINE [address] [place] [address] Adal Terrell MD [address] [place] [address] documented as of this encounter Visit Diagnoses Not on filedocumented in this encounter Additional Health Concerns Assessment Noted Time PHQ-9 Depression Total Score: 0 09/10/19 23 11:00 AM EST documented as of this encounter Care Teams Home Housekeeper Relationship Specialty Start Date End Date Adal Terrell MD [address] [place] [address] PCP - General Internal Medicine 03/08/14 documented as of this encounter
--- OUTSIDE RECORDS SUMMARY | 2024-08-26 18:25 | XMS_ITS | Clinical Summary ---
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 Transaminitis 12/23/2017 Assessment & Plan (11/26/2022 1:05 PM EDT): Patient has a Hx of intermittent transaminitis Most recent LFTs 05/05/2021 Normal Previously pt presented with persistent elevation of LFTs initially thought to be due to Bacteremia due to Pyelonephritis. Given persistent elevation. Pt seen by GI in the past Hep serology as well as [facility] to r/o Autoimmune Hepatitis were negative Moderate persistent asthma without complication 10/17/2017 Assessment & Plan (06/01/2024 2:37 PM EST): Today here for a follow up She is on Singulair 10 mg po daily, Pro-Air 2 puffs QID prn. Flovent and Albuterol nebulizations PRN Pt evaluated in the past by [facility], In May 2018 pt had a bronchoscopy that showed inflammation due to reflux. Currently doing well Assessment & Plan (03/23/2024 3:28 PM EDT): Today here for a follow up She is on Singulair 10 mg po daily, Pro-Air 2 puffs QID prn. Flovent and Albuterol nebulizations PRN Pt evaluated in the past by [facility], last seen /2018 . In May 2018 pt had a bronchoscopy that showed inflammation due to reflux. Pt tells me she feels she has mold in her apartment. I asked that she contacted her landlord for appropriate remediation. Assessment & Plan (10/21/2023 3:11 PM EDT): Today with an acute exacerbation She is on Singulair 10 mg po daily, Pro-Air 2 puffs QID prn Flovent and Albuterol nebulizations PRN Pt evaluated in the past by [facility], last seen /2018 . In May 2018 pt had a bronchoscopy that showed inflammation due to reflux. Assessment & Plan (06/03/2023 12:27 PM EST): No recent exacerbations She is supposed to be on Singulair 10 mg po daily, Pro-Air 2 puffs QID prn Flovent and Albuterol nebulizations PRN Pt evaluated in the past by [facility], last seen /2018 . In May 2018 pt had a bronchoscopy that showed inflammation due to reflux. Pt would like to be evaluated back Referral placed Assessment & Plan (03/04/2023 3:37 PM EDT): Stable She lost her Nebulizer, placed order for a new one She is supposed to be on Singulair 10 mg po daily, Pro-Air 2 puffs QID prn Flovent and Albuterol nebulizations PRN Pt evaluated in the past by Pulmonology, last seen /2018 . In May 2018 pt had a bronchoscopy that showed inflammation due to reflux. Assessment & Plan (11/26/2022 3:28 PM EDT): No recent exacerbations She is supposed to be on Singulair 10 mg po daily, Pro-Air 2 puffs QID prn Flovent and Albuterol nebulizations PRN Pt evaluated in the past by Pulmonology, last seen /2018 . In May 2018 pt had a bronchoscopy that showed inflammation due to reflux. Depressive disorder 05/04/2012 Assessment & Plan (06/01/2024 2:24 PM EST): Patient has a Hx of depression/bipolar disorder, previously she was interested in psychotherapy In the past she stopped seeing the psychotherapist and was well, she stopped taking all psychiatric medications a long time ago, She does not want to take any type of medication. Pt is seeing a psychotherapist Steffany Patel at [facility] Assessment & Plan (06/03/2023 12:29 PM EST): Patient has a Hx of depression/bipolar disorder, previously she was interested in psychotherapy In the past she stopped seeing the psychotherapist and was well, she stopped taking all psychiatric medications a long time ago, She does not want to take any type of medication Patient was referred to our [facility] clinician in the past. She has a small dog that helps her very much emotionally and she should continue to be able to keep her in her apartment for emotional support Assessment & Plan (11/26/2022 1:04 PM EDT): Patient has a Hx of depression/bipolar disorder, previously she was interested in psychotherapy In the past she stopped seeing the psychotherapist and was well, she stopped taking all psychiatric medications a long time ago, She does not want to take any type of medication Patient was referred to our [facility] clinician in the past Recurrent urinary tract infection 05/04/2012 Assessment & Plan (11/26/2022 3:32 PM EDT): Televisit Pt with chronic c/o recurrent UTIs, Evaluated by Urology Pt was seen by ID specialist Dr Paula Brito She is on Macrobid 100 mg po daily Tugboat Mate recommended she be seen by Urogynecology Amy Franco Assessment & Plan (07/18/2022 1:51 PM EST): Pt is here for a f/u Pt with chronic c/o recurrent UTIs, Evaluated by Urology Pt was seen by ID specialist Dr Paula Brito She is on Macrobid 100 mg po daily Tugboat Mate recommened she be seen by Urogynecology Amy Franco but she was never referred, today I have placed a referral Chronic low back pain 03/25/2011 Assessment & Plan (06/01/2024 2:39 PM EST): Pt with chronic right sided low back pain Most recent MRI of her Lumbar spine done 05/18/2021 showed: 1. Mild degenerative disc disease at L5-S1 with a mild broad-based disc bulge and posterior annular fissuring. Bilateral facet arthropathy. No significant central canal or neural foraminal stenosis. 2. Minimal left subarticular disc bulge at L4-L5 with bilateral facet arthropathy. No significant central canal or neural foraminal stenosis. Pt is already on Oxycodone BID PRN. She cannot take NSAIDS or Tylenol.Uses Tizanidine 2 mg po q 6-8 hrs prn with good results Pt did not go back to pain clinic at [facility] given that they changed providers S/p fall, landing on her right side, since then reports shooting pains from her low back into her hip Plan: Pain medication, obtain plain films, lumbar spine, right hip and pelvis Assessment & Plan (11/26/2022 3:30 PM EDT): Pt with chronic right sided low back pain Most recent MRI of her Lumbar spine done 05/18/2021 showed: 1. Mild degenerative disc disease at L5-S1 with a mild broad-based disc bulge and posterior annular fissuring. Bilateral facet arthropathy. No significant central canal or neural foraminal stenosis. 2. Minimal left subarticular disc bulge at L4-L5 with bilateral facet arthropathy. No significant central canal or neural foraminal stenosis. Pt is already on Oxycodone BID PRN. She cannot take NSAIDS or Tylenol.Uses Tizanidine 2 mg po q 6-8 hrs prn with good results Pt did not go back to pain clinic at [facility] given that they changed providers Assessment & Plan (10/17/2022 1:15 PM EDT): Pt with acute on chronic right sided low back pain Pt c/o new onset of right sided low back with radiation to right lower extremity Most recent MRI of her Lumbar spine done 05/18/2021 showed: 1. Mild degenerative disc disease at L5-S1 with a mild broad-based disc bulge and posterior annular fissuring. Bilateral facet arthropathy. No significant central canal or neural foraminal stenosis. 2. Minimal left subarticular disc bulge at L4-L5 with bilateral facet arthropathy. No significant central canal or neural foraminal stenosis. Pt is already on Oxycodone BID PRN. She cannot take NSAIDS or Tylenol. Added muscle relaxant. Tizanidine 2 mg po q 6-8 hrs prn with good results Pt did not go back to pain clinic at [facility] given that they changed providers Assessment & Plan (09/10/2022 12:00 PM EST): Pt with acute on chronic right sided low back pain Pt c/o new onset of right sided low back with radiation to right lower extremity Most recent MRI of her Lumbar spine done 05/18/2021 showed: 1. Mild degenerative disc disease at L5-S1 with a mild broad-based disc bulge and posterior annular fissuring. Bilateral facet arthropathy. No significant central canal or neural foraminal stenosis. 2. Minimal left subarticular disc bulge at L4-L5 with bilateral facet arthropathy. No significant central canal or neural foraminal stenosis. Pt is already on Oxycodone BID PRN. She cannot take NSAIDS or Tylenol. Added muscle relaxant. Tizanidine 2 mg po q 6-8 hrs prn Referred to PT Assessment & Plan (07/18/2022 3:59 PM EST): Pt with acute on chronic low back pain seen in the ER at least 5 different times over the past 6 months On exam there was evidence of severe muscle spasm on her lumbar spine MRI of her Lumbar spine done 05/18/2021 showed: IMPRESSION: 1. Mild degenerative disc disease at L5-S1 with a mild broad-based disc bulge and posterior annular fissuring. Bilateral facet arthropathy. No significant central canal or neural foraminal stenosis. 2. Minimal left subarticular disc bulge at L4-L5 with bilateral facet arthropathy. No significant central canal or neural foraminal stenosis. Pt did not do PT She is on Oxycodone PRN. She cannot take NSAIDS or Tylenol We had sent inadvertently Percocet instead of Oxycodone, Pt cannot take Tylenol, a new script for Oxycodone sent, her Pharmacy was contacted. Pt will bring the Percocet for us to dispose Allergic rhinitis 07/28/1959 Fibromyalgia 07/28/1959 Assessment & Plan (06/01/2024 2:38 PM EST): Acting up Pt has Fibromyalgia, In the past she has tried numerous medications with no good results, Lyrica, Gabapentin, Antidepressants. Unable to take NSAIDS, Referred for Acupuncture in the past. At the moment she does not want to change or adjust any of her medications Assessment & Plan (11/26/2022 3:29 PM EDT): Pt has Fibromyalgia, In the past she has tried numerous medications with no good results, Lyrica, Gabapentin, Antidepressants. Unable to take NSAIDS, Referred for Acupuncture in the past Migraine 07/28/1959 Resolved Problems Problem Noted Date Diagnosed Date Resolved Date Closed fracture of orbit 07/08/2022 Encounters Date Type Department Care Team Description 08/17/2024 Refill [facility] [address] [place] [address] Adal Terrell MD Chronic right-sided low back pain with right-sided sciatica 08/02/2024 Refill [facility] [address] [place] [address] Adal Terrell MD 08/02/2024 Telephone [facility] [address] [place] [address] Adal Terrell MD 07/29/2024 Orders Only GENERIC EXTERNAL DATA DEPARTMENT Provider, Generic External Data 07/13/2024 Refill [facility] [address] [place] [address] Adal Terrell MD Chronic right-sided low back pain with right-sided sciatica 06/16/2024 Refill [facility] [address] [place] [address] Marci Kennedy RN Chronic right-sided low back pain with right-sided sciatica 06/16/2024 Telephone [facility] [address] [place] [address] Adal Terrell MD Med Refill 06/09/2024 3:20 PM EST Nurse Only [facility] [address] [place] [address] Fiona Powell LPN Encounter for immunization (Primary Dx) 06/09/2024 Travel 06/07/2024 2:00 PM EST Telemedicine [facility] [address] [place] [address] Marci Kennedy, direct support professional caregiver right-sided low back pain with right-sided sciatica 06/07/2024 Orders Only [facility] External Provider, [facility] 06/07/2024 Travel 06/03/2024 Telephone [facility] [address] [place] [address] Adal Terrell MD 06/02/2024 Telephone [facility] [address] [place] [address] Lori Villarreal RN Results 06/01/2024 2:00 PM EST Office Visit [facility] [address] [place] [id number] Adal Terrell MD Hypersomnolence (Primary Dx); Moderate persistent asthma without complication; Chronic right-sided low back pain with right-sided sciatica; Memory loss, short term; Fibromyalgia; Depressive disorder; Right hip pain; Leukocytosis, unspecified type; Immunizations up to date 06/01/2024 Refill [facility] [address], [place] [phone] Adal Terrell MD 06/01/2024 Travel 05/26/2024 Telephone [facility] [address], [place] [phone] Bobby Martinez MD Durable Medical Equipment (Compression Stockings) from Last 3 Months Immunizations Name Administration Dates Next Due Influenza injectable quadriv alent preservative free 05/30/2022,05/11/2019,09/07/2018,2015 Influenza, IIV3, injectable 03/25/2011 Influenza, Split (incl. chao fied surface antigen) 04/21/2013,05/04/2012 Moderna Covid-19 Vaccine 12+ 02/27/2022,11/02/19 21,10/04/2020 TD (adult), 2 Lf tetanus tox oid, preservative free, adsorbed 02/04/2019,03/09/2008 Tdap 06/09/2024 Social History Tobacco Use Types Packs/Day Years Used Date Smoking Tobacco: Never Passive Smoke Exposure: Never Smokeless Tobacco: Never Tobacco Cessation:Counseling Given: Not Answered Alcohol Use Standard Drinks/Week Comments Never 0 [...] Orientation Bisexual 05/27/2022 10 :17 AM EDT Last Filed Vital Signs Vital Sign Reading Time Taken Comments Blood Pressure 137/81 06/01/2024 1:45 PM EST Pulse 79 06/01/2024 1:45 PM EST Temperature 36.6 ??C (97.9 ??F) 06/01/2024 1:45 PM ES T Respiratory Rate 16 06/01/2024 1:45 PM EST Oxygen Saturation 99% 06/01/2024 1:45 PM EST Inhaled Oxygen Concentration - - Weight 82.7 kg (182 lb 6.4 oz) 06/01/2024 1:45 P M EST Height 160 cm (5' 3 ) 01/27/2024 10:53 AM EDT Body Mass Index 32.31 01/27/2024 10:53 AM EDT Plan of Treatment Upcoming Encounters Date Type Department Care Team (Late st Contact Info) Description 09/08/2024 2:15 PM EST Clinical Support [facility] [address] [place] [address] Marci Kennedy, RN [address] [place] [address] 09/09/2024 3:00 PM EST Office Visit [facility] [address] [place] [address] Adal Terrell MD [address] [place] [address] Health Maintenance Due Date Last Done Comments CT Colonography 1976 FIT DNA/Cologuard 1976 FIT 1975 FOBT 1975 Sigmoidoscopy 1976 Alcohol/Substance Use Screening 1988 Family Planning (PISQ) 11/07/1991 Hepatitis B Vaccines (1 of 3 - 19+ 3-dose series) 11/07/1995 Pneumococcal Vaccine: Pediatrics (0 to 5 Years) and At-Risk Patients (6 to 49) Years) (1 of 2 - PCV) 11/07/1995 Pap Smear 1997 Cervical Cancer Screening 06/04/2023 HPV/Cotest 06/04/2023 06/04/2018 Colonoscopy 08/31/2023 08/31/2018 Colorectal Cancer Screening 08/31/2023 COVID-19 Vaccine ( season) 2024 02/27/2022, 11/01/2020, 10/04/2020 Influenza Vaccine (#1) 2024 , 05/11/2019, 09/07/2018, Additional history exists Depression Screening 01/26/2025 01/27/2024, 01/27/20 24 SDOH Screening 01/26/2025 01/27/2024 Tobacco Screening 05/14/2025 05/14/2024 Mammogram 09/24/2025 09/24/2023, 07/28, 01/20/2018 Zoster Vaccines (1 of 2) 2026 DTaP/Tdap/Td Vaccines (2 - Td or Tdap) 06/09/2034 06/09/2024, 02/04/2019, 03/09/2008 RSV Patients and Patients Aged 60 years or older (1 - 1-dose 75+ series) 11/07/2051 HIV Screening Completed 02/05/2022, 01/25, 02/29/2020 Hepatitis C Screening Completed 02/05/2022, 020 HIB Vaccines Aged Out No longer eligi [...] patient's age to complete this topic Meningococcal Vaccine Aged Out No ankit cristy eligible based on patient's age to complete this topic RSV under 20 months Aged Out No longe r eligible based on patient's age to complete this topic Rotavirus Vaccines Aged Out No longer eligible based on patient's age to complete this topic Procedures Procedure Name Priority Date/Time Associated Diagnosis Comments VITAMIN D,25-OH,TOTAL,IA Routine 07/29/2024 2:[address] HEAD WO CONTRAST Routine 07/13/2024 3 :53 PM EST Memory loss, short term VASC US LOWER EXTREMITY VENOUS DUPLEX BILATERAL Routine 06/07/2024 10:29 AM EST VARICELLA ZOSTER ANTIBODY, IGG Routine 06/03/2024 10:02 AM EST Immunizations up to date MEASLES, MUMPS, AND RUBELLA (MMR) AB (IGG) PANEL, IMMUNE STATUS Routine 06/03/2024 10:02 AM EST Immunizations up to date HEPATITIS B SURFACE ANTIGEN, EIA Routine 06/03/2024 10:02 AM EST Immunizations up to date HEPATITIS B SURFACE ANTIBODY, QUALITATIVE Routine 06/03/2024 10:02 AM EST Immunizations up to date HEPATITIS B CORE AB TOTAL Routine 06/03/2024 10:02 AM EST Immunizations up to date XR PELVIS 1-2 VIEWS Routine 06/01/2024 3 :28 PM EST Right hip pain XR HIP 2 OR 3 VIEWS RIGHT Routine 06/01/2024 3:27 PM EST Right hip pain XR LUMBAR SPINE 2-3 VIEWS Routine 06/01/2024 3:27 PM EST Fibromyalgia T-SPOT(R).TB Routine 06/01/2024 3:05 PM EST Leukocytosis, unspecified type CBC WITH AUTO DIFFERENTIAL Routine 06/01/2024 3:05 PM EST Fibromyalgia LYME DISEASE AB W/REFL TO BLOT (IGG, IGM) Routine 06/01/2024 3:05 PM EST Fibromyalgia SYPHILIS SCREEN Routine 06/01/2024 3:05 PM EST Memory loss, short term VITAMIN B12/FOLATE, SERUM PANEL Routine 06/01/2024 3:05 PM EST Memory loss, short term BI US BREAST LIMITED LEFT Routine 09/24/2023 1:55 PM EST ZZZ HISTORICAL HEPATITIS C AB W/REFL TO HCV RNA, QN, PCR Routine 02/05/2022 10:03 AM EDT HIV 1/2 ANTIGEN/ANTIBODY, FOURTH GENERATION W/RFL Routine 02/05/2022 9:38 AM EDT HM COLONOSCOPY Routine 08/31/2018 3:43 PM EST ZZZ HISTORICAL HPV MRNA E6/E7 Routine 06/04/2018 12:00 AM EST from Last 3 Months or Most Recently Relevant to Health Maintenance Results * (ABNORMAL) Vitamin D, 25-Hydroxy, Total, Immunoassay (07/29/2024 2:14 PM EST) Vitamin D 25-OH Total 22.6(L) >30 ng/mL [facility] Comment:Health Based Referen ce Values*< 20 ng/mL [id number] ng/mL Insufficient> 30 ng/mL Sufficient*Bertram GOLDBERG. N [...] Provider LAB BLOOD ORDERAB LES Final Result Performing Organization Address [facility]/State/[facility] Co de Phone Number [facility] [address] [place] [address] [phone] * CT Head w/o Contrast (07/13/2024 3:53 PM EST) Anatomical Region Laterality Modality Head, Neck Computed Tomogra phy 07/13/2024 3:53 PM EST Narrative 07/26/2024 1:07 PM EST ? [facility] ?[address] ?[place] [address] ? CT Scan Report ? Signed ? Patient: Hall,Nisa ?MR#: [id number] ?? [id number] ? : 1975 ?Acct:[id number] ? Age/Sex: 48 / F ?ADM Date: 12/17/24 ? Loc: HO.CT ? Attending Dr: Adal Alves MD ? Ordering Physician: Adal Alves MD ?? Date of Service: 07/13/24 ?? Procedure(s): CT head/brain wo IV con ?? Accession Number(s): [id number] ? cc: Adal Alves MD ? Report Number: ?? [id number]: Total DLP = ??657.00 mGy-cm ?? EXAMINATION: ?? CT HEAD WITHOUT CONTRAST ? CLINICAL INFORMATION: ?? Forgetfulness. ? COMPARISON: ?? CT brain 05/08/2023 ? TECHNIQUE: ?? Contiguous axial imaging was performed from the skull base to vertex ?? without intravenous administration of contrast. ? This CT examination was performed using dose optimization techniques as ?? appropriate, variously including the following: ?? *Automated exposure control ?? *Adjustment of mA and/or kV according to patient size (this includes ?? techniques or standardized protocols for targeted exams where dose is ?? matched to indication/reason for exam; i.e. extremities or head) ?? *Use of iterative reconstruction technique ? DLP: ?? 657 mGy-cm ? FINDINGS: ?? There is no acute intra-axial, extra-axial bleed, masses or midline ?? shift.. There is no acute infarction evolution. There is no edema. The ?? nichole to white matter differentiation is maintained normal. The lateral ?? ventricles are symmetrical in size and configuration without ?? enlargement. Bone windows reveal no calvarial abnormality. Bilateral ?? paranasal sinuses and mastoid air cells are well-aerated. ? CT/CT head/brain wo IV con ?? IMPRESSION: ?? No acute intracranial process seen. No major change compared to ?? previous study 05/08/2023. ? Electronically signed by: ??Jitendra Palmer MD ??07/26/2024 01:04 PM EST RP ? Dictated By: ?Jitendra Palmer MD ? Signed By: ?<Electronically signed by Jitendra Palmer MD in OV> ?07/26/24 1304 ? DD/ 1553 ? TD/TT: 07/13/24 1605 ? Parasitology Teacher: MSM ? Procedure Note Rosaura, Image - 07/26/[address] [address] [address] Scan Report Signed Patient: Bimal Hall#: [id number] : 1975Acct:[id number] Age/Sex: 48 / FADM Date: 07/13/24 Loc: HO.CT Attending Dr: Adal Alves MD Ordering Physician: Adal Alves MD Date of Service: 07/13/24 Procedure(s): CT head/brain wo IV con Accession Number(s): [id number] cc: Adal Alves MD Report Number: [id number]: Total DLP = 657.00 mGy-cm EXAMINATION: CT HEAD WITHOUT CONTRAST CLINICAL INFORMATION: Forgetfulness. COMPARISON: CT brain 05/08/2023 TECHNIQUE: Contiguous axial imaging was performed from the skull base to vertex without intravenous administration of contrast. This CT examination was performed using dose optimization techniques as appropriate, variously including the following: *Automated exposure control *Adjustment of mA and/or kV according to patient size (this includes techniques or standardized protocols for targeted exams where dose is matched to indication/reason for exam; i.e. extremities or head) *Use of iterative reconstruction technique DLP: 657 mGy-cm FINDINGS: There is no acute intra-axial, extra-axial bleed, masses or midline shift.. There is no acute infarction evolution. There is no edema. The nichole to white matter differentiation is maintained normal. The lateral ventricles are symmetrical in size and configuration without enlargement. Bone windows reveal no calvarial abnormality. Bilateral paranasal sinuses and mastoid air cells are well-aerated. CT/CT head/brain wo IV con IMPRESSION: No acute intracranial process seen. No major change compared to previous study 05/08/2023. Electronically signed by: Jitendra Palmer MD 07/26/2024 01:04 PM EST Dictated By: Jitendra Palmer MD Signed By: <Electronically signed by Jitendra Palmer MD in OV> 07/26/24 1304 DD/ 1553 TD/TT: 07/13/24 1605 Parasitology Teacher: JEANNINE Adal Mccarthy MD IMG CT PROCEDURES Fin al Result * VASC US Lower Extremity Venous Duplex Bilateral (06/07/2024 10:29 AM EST) 06/07/2024 10:2 9 AM EST [facility] IMAGING - 07/01/2024 10:48 AM EST ? [facility] ?[address] ?[place] [address] ? Ultrasound Report ? Signed ? Patient: Hall,Nisa ?MR#: [id number] ?? [id number] ? : 1975 ?Acct:[id number] ? Age/Sex: 48 / F ?ADM Date: 06/07/24 ? Loc: HO.US ? Attending Dr: Anu Vega PA-C ? Ordering Physician: Anu Vega PA-C ?? Date of Service: 06/07/24 ?? Procedure(s): US venous duplex LE BI ?? Accession Number(s): [id number] ? cc: Adal Alves MD; Anu Vega PA-C ? EXAMINATION: ?? US LOWER EXTREMITY VENOUS (REFLUX EXAM), BILATERAL ? CLINICAL INDICATION: ?? Chronic venous insufficiency with lower extremity varicose veins with ?? inflammation ? COMPARISON: ?? None. ? TECHNIQUE: ?? Color flow triplex imaging and compression Doppler was performed to ?? evaluate both the deep and the superficial systems bilaterally. To ?? evaluate the superficial system, the examination was performed in the ?? upright position. Color-flow Doppler ultrasound and compression ?? ultrasound were utilized. In addition, maneuvers were utilized to ?? demonstrate reflux. ? FINDINGS: ? 1. DEEP VENOUS ULTRASOUND OF THE RIGHT LOWER EXTREMITY: ?? Common Femoral Vein: Compressible, normal respiratory variation and ?? augmented flow. ? Femoral Vein: Compressible, normal color flow and augmentation. ?? Popliteal Vein: Compressible, normal augmentation. ? Deep Reflux: There is no evidence of reflux in the deep system in ?? either the common femoral vein, superficial femoral or the popliteal ?? vein. ? There is no evidence of a Ghotra's cyst. ? 2. SUPERFICIAL ULTRASOUND WITH DOPPLER OF RIGHT LOWER EXTREMITY: ? GREAT SAPHENOUS VEIN: ?? Saphenofemoral Junction: 0.8 cm; Reflux: 0 ms ?? Proximal Thigh: 0.6 cm; Reflux: 0 ms ?? Mid Thigh: 0.4 cm; Reflux: 0 ms ?? Above Knee: 0.4 cm; Reflux: 0 ms ?? At Knee: 0.4 cm; Reflux: 0 ms ?? Below Knee: 0.4 cm; Reflux: 0 ms ?? Mid Calf: 0.3 cm; Reflux: 512 ms ?? Ankle: 0.3 cm; Reflux: 0 ms ? DUPLICATED MEDIAL GREAT SAPHENOUS VEIN: ?? Diameter: None imaged ?? Reflux: NA ? DUPLICATED LATERAL GREAT SAPHENOUS VEIN: ?? Diameter: 0.5 cm ?? Reflux: None ? SMALL SAPHENOUS VEIN: ?? Saphenopopliteal Junction: 0.3 cm; Reflux: 1148 ms ?? Proximal: 0.2 cm; Reflux: 0 ms ?? Distal: 0.2 cm; Reflux: 0 ms ? VEIN OF GIACOMINI: ?? Size: NA ?? Reflux: NA ? PERFORATORS: ?? Location: None significant ?? Size: NA ?? Reflux: NA ? VARICOSITIES: ?? Location: Proximal thigh, proximal calf and distal calf ?? Size: 0.3 cm ?? Reflux: None ? 3. DEEP VENOUS ULTRASOUND OF THE LEFT LOWER EXTREMITY: ?? Common Femoral Vein: Compressible, normal respiratory variation and ?? augmented flow. ? Femoral Vein: Compressible, normal color flow and augmentation. ?? Popliteal Vein: Compressible, normal augmentation. ? Deep Reflux: There is no evidence of reflux in the deep system in ?? either the common femoral vein, superficial femoral or the popliteal ?? vein. ? There is no evidence of a Ghotra's cyst. ? 4. SUPERFICIAL ULTRASOUND WITH DOPPLER OF LEFT LOWER EXTREMITY: ? GREAT SAPHENOUS VEIN: ?? Saphenofemoral Junction: 1.0 cm; Reflux: 0 ms ?? Proximal Thigh: 0.5 cm; Reflux: 0 ms ?? Mid Thigh: 0.4 cm; Reflux: 0 ms ?? Above Knee: 0.5 cm; Reflux: 0 ms ?? At Knee: 0.5 cm; Reflux: 0 ms ?? Below Knee: 0.3 cm; Reflux: 0 ms ?? Mid Calf: 0.3 cm; Reflux: 0 ms ?? Ankle: 0.2 cm; Reflux: 0 ms ? DUPLICATED MEDIAL GREAT SAPHENOUS VEIN: ?? Diameter: None imaged ?? Reflux: NA ? DUPLICATED LATERAL GREAT SAPHENOUS VEIN: ?? Diameter: 0.3 cm ?? Reflux: None ? SMALL SAPHENOUS VEIN: ?? Saphenopopliteal Junction: 0.2 cm; Reflux: 0 ms ?? Proximal: 0.3 cm; Reflux: 0 ms ?? Distal: 0.2 cm; Reflux: 0 ms ? VEIN OF GIACOMINI: ?? Size: NA ?? Reflux: NA ? PERFORATORS: ?? Location: None significant ?? Size: NA ?? Reflux: NA ? VARICOSITIES: ?? Location: Proximal thigh, proximal calf, posterior distal calf ?? Size: 0.3 to 0.4 cm ?? Reflux: None ? US/US venous duplex LE BI ?? IMPRESSION: ?? 1. ??Right: Focal reflux in the great saphenous vein in the mid calf and ?? small saphenous vein at the saphenopopliteal junction. Multiple ?? varicosities without significant reflux as described above. ?? 2. ??Left: No significant venous insufficiency or reflux. Multiple ?? varicosities without significant reflux as described above. ? Electronically signed by: ??Sina Morton MD ??07/01/2024 10:44 AM EST RP ? Dictated By: ?Sina Morton MD ? Signed By: ?<Electronically signed by Sina Morton MD in OV> ? 07/01/24 1044 ? DD/ 1029 ? TD/TT: 06/07/24 1104 ? Parasitology Teacher: ? Procedure Note Rosaura, Image - 07/01/[address] [address] Ultrasound Report Signed Patient: Nisa HallMR#: [id number] : 1975Acct:[id number] Age/Sex: 48 / FADM Date: 06/07/24 Loc: HO.US Attending Dr: Anu Vega PA-C Ordering Physician: Anu Vega PA-C Date of Service: 06/07/24 Procedure(s): US venous duplex LE BI Accession Number(s): [id number] cc: Adal Alves MD; Anu Vega PA-C EXAMINATION: US LOWER EXTREMITY VENOUS (REFLUX EXAM), BILATERAL CLINICAL INDICATION: Chronic venous insufficiency with lower extremity varicose veins with inflammation COMPARISON: None. TECHNIQUE: Color flow triplex imaging and compression Doppler was performed to evaluate both the deep and the superficial systems bilaterally. To evaluate the superficial system, the examination was performed in the upright position. Color-flow Doppler ultrasound and compression ultrasound were utilized. In addition, maneuvers were utilized to demonstrate reflux. FINDINGS: 1. DEEP VENOUS ULTRASOUND OF THE RIGHT LOWER EXTREMITY: Common Femoral Vein: Compressible, normal respiratory variation and augmented flow. Femoral Vein: Compressible, normal color flow and augmentation. Popliteal Vein: Compressible, normal augmentation. Deep Reflux: There is no evidence of reflux in the deep system in either the common femoral vein, superficial femoral or the popliteal vein. There is no evidence of a Ghotra's cyst. 2. SUPERFICIAL ULTRASOUND WITH DOPPLER OF RIGHT LOWER EXTREMITY: GREAT SAPHENOUS VEIN: Saphenofemoral Junction: 0.8 cm; Reflux: 0 ms Proximal Thigh: 0.6 cm; Reflux: 0 ms Mid Thigh: 0.4 cm; Reflux: 0 ms Above Knee: 0.4 cm; Reflux: 0 ms At Knee: 0.4 cm; Reflux: 0 ms Below Knee: 0.4 cm; Reflux: 0 ms Mid Calf: 0.3 cm; Reflux: 512 ms Ankle: 0.3 cm; Reflux: 0 ms DUPLICATED MEDIAL GREAT SAPHENOUS VEIN: Diameter: None imaged Reflux: NA DUPLICATED LATERAL GREAT SAPHENOUS VEIN: Diameter: 0.5 cm Reflux: None SMALL SAPHENOUS VEIN: Saphenopopliteal Junction: 0.3 cm; Reflux: 1148 ms Proximal: 0.2 cm; Reflux: 0 ms Distal: 0.2 cm; Reflux: 0 ms VEIN OF GIACOMINI: Size: NA Reflux: NA PERFORATORS: Location: None significant Size: NA Reflux: NA VARICOSITIES: Location: Proximal thigh, proximal calf and distal calf Size: 0.3 cm Reflux: None 3. DEEP VENOUS ULTRASOUND OF THE LEFT LOWER EXTREMITY: Common Femoral Vein: Compressible, normal respiratory variation and augmented flow. Femoral Vein: Compressible, normal color flow and augmentation. Popliteal Vein: Compressible, normal augmentation. Deep Reflux: There is no evidence of reflux in the deep system in either the common femoral vein, superficial femoral or the popliteal vein. There is no evidence of a Ghotra's cyst. 4. SUPERFICIAL ULTRASOUND WITH DOPPLER OF LEFT LOWER EXTREMITY: GREAT SAPHENOUS VEIN: Saphenofemoral Junction: 1.0 cm; Reflux: 0 ms Proximal Thigh: 0.5 cm; Reflux: 0 ms Mid Thigh: 0.4 cm; Reflux: 0 ms Above Knee: 0.5 cm; Reflux: 0 ms At Knee: 0.5 cm; Reflux: 0 ms Below Knee: 0.3 cm; Reflux: 0 ms Mid Calf: 0.3 cm; Reflux: 0 ms Ankle: 0.2 cm; Reflux: 0 ms DUPLICATED MEDIAL GREAT SAPHENOUS VEIN: Diameter: None imaged Reflux: NA DUPLICATED LATERAL GREAT SAPHENOUS VEIN: Diameter: 0.3 cm Reflux: None SMALL SAPHENOUS VEIN: Saphenopopliteal Junction: 0.2 cm; Reflux: 0 ms Proximal: 0.3 cm; Reflux: 0 ms Distal: 0.2 cm; Reflux: 0 ms VEIN OF GIACOMINI: Size: NA Reflux: NA PERFORATORS: Location: None significant Size: NA Reflux: NA VARICOSITIES: Location: Proximal thigh, proximal calf, posterior distal calf Size: 0.3 to 0.4 cm Reflux: None US/US venous duplex LE BI IMPRESSION: 1. Right: Focal reflux in the great saphenous vein in the mid calf and small saphenous vein at the saphenopopliteal junction. Multiple varicosities without significant reflux as described above. 2. Left: No significant venous insufficiency or reflux. Multiple varicosities without significant reflux as described above. Electronically signed by: Sina Morton MD 07/01/2024 10:44 AM [facility] Dictated By: Sina Morton MD Signed By: <Electronically signed by Sina Morton MD in OV> 07/01/24 1044 DD/ 1029 TD/TT: 06/07/24 1104 Parasitology Teacher: us [facility] External Provider CV VASC ULAR PROCEDURES Edited Result - Final [facility] [address] [place] [address] [phone] * Measles, Mumps, and Rubella (MMR) Antibodies??(IgG) Panel, Immune Status (06/03/2024 10:02 AM EST) Mumps Virus IgG Antibody >300.00 AU/mL [facility] Comment:AU/mL Interpretation ------- <9.00 Not consistent with immunity9.00-10.99 Equivocal>10.99 Consistent with immunityThe presence of mumps IgG antibody suggests immunizationor past or current infection with mumps virus. Rubella IgG Antibody 2.55 Index [facility] Comment:Index Interpretation ----- <0.90 Not consistent with immunity 0.90-0.99 Equivocal > or = 1.00 Consistent with immunityThe presence of rubella IgG antibody suggestsimmunization or past or current infection withrubella virus.THIS TEST WAS PERFORMED AT:[email or web address] [place] [phone] RUCKER MD Rubeola IgG (Measles) 92.40 AU/mL [facility] Comment:AU/mL Interpretation ----- <13.50 Not consistent with eqsravll53.50-16.49 Equivocal>16.49 Consistent with immunityThe presence of measles IgG suggests immunization orpast or current infection with measles virus.For additional information, please refer tohttp://education.[employer]/faq/XOH740(This link is being provided for informational/educational purposes only.) Blood Venous blood specimen / Unknown 06/03/2024 10:02 AM EST 06/03/2024 11:27 AM EST us Adal Mccarthy MD LAB BLOOD ORDERABLES Final Result [facility] [address] [place] [phone] * Hepatitis B surface antigen, EIA (06/03/2024 10:02 AM EST) Hepatitis B Surface Ag Negative Negative [facility] Blood Venous blood specimen / Unknown 06/03/2024 10:02 AM EST 06/03/2024 11:27 AM EST us Adal Mccarthy MD LAB BLOOD ORDERABLES Final Result Performing Organization Address City/[facility]/ZIP Co de Phone Number [facility] [address] [place] [phone] * Hepatitis B Core Antibody, Total (06/03/2024 10:02 AM EST) Pathologist [facility] Hepatitis B Core Antibody Nonreactive Nonreactive [facility] Blood Venous blood specimen / Unknown 06/03/2024 10:02 AM EST 06/03/2024 11:27 AM EST Adal Mccarthy MD LAB BLOOD ORDERABLES Final Result Performing Organization Address [facility] Co de Phone Number [facility] [address] [place] [phone] * Hepatitis B Surface Antibody, Qualitative (06/03/2024 10:02 AM EST) Pathologist [facility] ~Hepatitis B Surface Antibody REACTIVE Nonreactive [facility] Comment:REACTIVE: > 11.99 mI U/mL Blood Venous blood specimen / Unknown 06/03/2024 10:02 AM EST 06/03/2024 11:27 AM EST us Adal Mccarthy MD LAB BLOOD ORDERABLES Final Result Performing Organization Address City/[facility] Co de Phone Number [facility] [address] [place] [phone] * Varicella Zoster Antibody, IgG (06/03/2024 10:02 AM EST) Varicella IgG Antibody 7.99 S/CO [facility] Comment:Signal to Cut-off S/ CO Interpretation --------- <1.00 Negative - Antibody not detected > or = 1.00 Positive - Antibody detected A positive result indicates that the patient has antibody to VZV but does not differentiate between an active or past infection. The clinical diagnosis must be interpreted in conjunction with the clinical signs and symptoms of the patient. This assay reliably measures immunity due to previous infection but may not be sensitive enough to detect antibodies induced by vaccination. Thus, a negative result in a vaccinated individual does not necessarily indicate susceptibility to VZV infection. A more sensitive test for vaccination-induced immunity is Varicella Zoster Virus Antibody Immunity Screen, ACIF.THIS TEST WAS PERFORMED AT:[email or web address] [place] [phone] RUCKER MD Blood Venous blood specimen / Unknown 06/03/2024 10:02 AM EST 06/03/2024 11:27 AM EST us Adal Mccarthy MD LAB BLOOD ORDERABLES Final Result [facility] [address] [place] [phone] * XR Pelvis 1-2 Views (06/01/2024 3:28 PM EST) Anatomical Region Laterality Modality Body, Pelvis Radiographic Kasie ging 06/01/2024 3:28 PM EST Narrative 06/02/2024 10:52 AM EST ? [facility] ?[address] [place] [address]. ?[place] [address] ?XRay Report ? Signed ? Patient: Hall,Nisa ?MR#: [id number] ?? [id number] ? : 1975 ?Acct:[id number] ? Age/Sex: 48 / F ?ADM Date: 11/05/24 ? Loc: HO.HHCL ? Attending Dr: Adal Alves MD ? Ordering Physician: Adal Alves MD ?? Date of Service: 06/01/24 ?? Procedure(s): XR pelvis 1-2V ?? Accession Number(s): [id number] ? cc: Adal Alves MD ? EXAMINATION: ?? XR lumbar spine 2-3V (accession [id number]) ?? XR hip RT min 2V (accession [id number]) ?? XR pelvis 1-2V (accession [id number]) ? CLINICAL INFORMATION: ?? FALL, LOW BACK PAIN Fibromyalgia, right HIP PAIN S/P FALL. ? COMPARISON: ?? Lumbar spine radiograph 05/08/23, left hip radiograph 05/08/23 ? TECHNIQUE: ?? AP and lateral views of the lumbar spine and lateral view of the ?? lumbosacral junction, 3 images. ?? AP and frog leg lateral view of the right hip, 2 images. ?? AP view of the pelvis, 1 image. ? FINDINGS: ?? Lumbar spine: ?? Mild facet joint space narrowing and arthropathy at L4-L5 and L5-S1, ?? progressed from prior. Vertebral body heights are normal. No fracture ?? or spondylolisthesis. Intervertebral disc heights are maintained ?? without significant degenerative disc disease. Bone mineralization is ?? normal. Soft tissues are unremarkable. ? Right hip: ?? The femoral head is well-seated within the acetabulum. No significant ?? soft tissue abnormality. No radiopaque foreign body. ? Pelvis: ?? The pelvic rim is intact. No pubic symphysis diastases. Sacroiliac ?? joint spaces are well-maintained without erosions or surrounding ?? sclerosis. The left hip is intact. ? XR/XR pelvis 1-2V ?? IMPRESSION: ?? 1. ??No acute fracture or malalignment of the lumbar spine, right hip, ?? or pelvis. ?? 2. ??Mild facet joint space narrowing and arthropathy at L4-L5 and ?? L5-S1, progressed from prior. ? Electronically signed by: ??Christiane Levine DO ??06/02/2024 10:49 AM EST ?? RP ? Dictated By: ?Christiane Levine ? Signed By: ?<Electronically signed by Christiane Levine in OV> ? 06/02/24 1049 ? DD/ 1528 ? TD/TT: 06/01/24 1540 ? Parasitology Teacher: ? Procedure Note Donotuseinterpreter, Image - 06/02/[address] [address] XRay Report Signed Patient: Nisa HallMR#: [id number] : 1975Acct:[id number] Age/Sex: 48 / FADM Date: 06/01/24 Loc: HO.HHCL Attending Dr: Adal Alves MD Ordering Physician: Adal Alves MD Date of Service: 06/01/24 Procedure(s): XR pelvis 1-2V Accession Number(s): [id number] cc: Adal Alves MD EXAMINATION: XR lumbar spine 2-3V (accession [id number]) XR hip RT min 2V (accession [id number]) XR pelvis 1-2V (accession [id number]) CLINICAL INFORMATION: FALL, LOW BACK PAIN Fibromyalgia, right HIP PAIN S/P FALL. COMPARISON: Lumbar spine radiograph 05/08/23, left hip radiograph 05/08/23 TECHNIQUE: AP and lateral views of the lumbar spine and lateral view of the lumbosacral junction, 3 images. AP and frog leg lateral view of the right hip, 2 images. AP view of the pelvis, 1 image. FINDINGS: Lumbar spine: Mild facet joint space narrowing and arthropathy at L4-L5 and L5-S1, progressed from prior. Vertebral body heights are normal. No fracture or spondylolisthesis. Intervertebral disc heights are maintained without significant degenerative disc disease. Bone mineralization is normal. Soft tissues are unremarkable. Right hip: The femoral head is well-seated within the acetabulum. No significant soft tissue abnormality. No radiopaque foreign body. Pelvis: The pelvic rim is intact. No pubic symphysis diastases. Sacroiliac joint spaces are well-maintained without erosions or surrounding sclerosis. The left hip is intact. XR/XR pelvis 1-2V IMPRESSION: 1. No acute fracture or malalignment of the lumbar spine, right hip, or pelvis. 2. Mild facet joint space narrowing and arthropathy at L4-L5 and L5-S1, progressed from prior. Electronically signed by: Christiane Levine DO 06/02/2024 10:49 AM EST RP Dictated By: Christiane Levine Signed By: <Electronically signed by Christiane Levine in OV> 06/02/24 1049 DD/ 1528 TD/TT: 06/01/24 1540 Parasitology Teacher: us Adal Mccarthy MD IMG XR PROCEDURES Fin al Result * XR Hip 2 or 3 Views Right (06/01/2024 3:27 PM EST) Anatomical Region Laterality Modality Lower Extremities, Hip Right Radiograp hic Imaging 06/01/2024 3:27 PM EST Narrative 06/02/2024 10:52 AM EST ? [facility] ?[address] ?[place] [address] ?XRay Report ? Signed ? Patient: Nisa Hall ?MR#: [id number] ?? [id number] ? : 1975 ?Acct:[id number] ? Age/Sex: 48 / F ?ADM Date: 06/01/24 ? Loc: HO.HHCL ? Attending Dr: Adal Alves MD ? Ordering Physician: Adal Alves MD ?? Date of Service: 06/01/24 ?? Procedure(s): XR hip RT min 2V ?? Accession Number(s): [id number] ? cc: Adal Alves MD ? EXAMINATION: ?? XR lumbar spine 2-3V (accession [id number]) ?? XR hip RT min 2V (accession [id number]) ?? XR pelvis 1-2V (accession [id number]) ? CLINICAL INFORMATION: ?? FALL, LOW BACK PAIN Fibromyalgia, right HIP PAIN S/P FALL. ? COMPARISON: ?? Lumbar spine radiograph 05/08/23, left hip radiograph 05/08/23 ? TECHNIQUE: ?? AP and lateral views of the lumbar spine and lateral view of the ?? lumbosacral junction, 3 images. ?? AP and frog leg lateral view of the right hip, 2 images. ?? AP view of the pelvis, 1 image. ? FINDINGS: ?? Lumbar spine: ?? Mild facet joint space narrowing and arthropathy at L4-L5 and L5-S1, ?? progressed from prior. Vertebral body heights are normal. No fracture ?? or spondylolisthesis. Intervertebral disc heights are maintained ?? without significant degenerative disc disease. Bone mineralization is ?? normal. Soft tissues are unremarkable. ? Right hip: ?? The femoral head is well-seated within the acetabulum. No significant ?? soft tissue abnormality. No radiopaque foreign body. ? Pelvis: ?? The pelvic rim is intact. No pubic symphysis diastases. Sacroiliac ?? joint spaces are well-maintained without erosions or surrounding ?? sclerosis. The left hip is intact. ? XR/XR hip RT min 2V ?? IMPRESSION: ?? 1. ??No acute fracture or malalignment of the lumbar spine, right hip, ?? or pelvis. ?? 2. ??Mild facet joint space narrowing and arthropathy at L4-L5 and ?? L5-S1, progressed from prior. ? Electronically signed by: ??Christiane Levine DO ??06/02/2024 10:49 AM EST ?? RP ? Dictated By: ?Christiane Levine ? Signed By: ?<Electronically signed by Christiane Levine in OV> ? 06/02/24 1049 ? DD/ 1527 ? TD/TT: 06/01/24 1540 ? Parasitology Teacher: ? Procedure Note Rosaura, Image - 06/02/[address] [address] XRay Report Signed Patient: Nisa HallMR#: [id number] : 1975Acct:[id number] Age/Sex: 48 / FADM Date: 06/01/24 Loc: HO.HHCL Attending Dr: Adal Alves MD Ordering Physician: Adal Alves MD Date of Service: 06/01/24 Procedure(s): XR hip RT min 2V Accession Number(s): [id number] cc: Adal Alves MD EXAMINATION: XR lumbar spine 2-3V (accession [id number]) XR hip RT min 2V (accession [id number]) XR pelvis 1-2V (accession [id number]) CLINICAL INFORMATION: FALL, LOW BACK PAIN Fibromyalgia, right HIP PAIN S/P FALL. COMPARISON: Lumbar spine radiograph 05/08/23, left hip radiograph 05/08/23 TECHNIQUE: AP and lateral views of the lumbar spine and lateral view of the lumbosacral junction, 3 images. AP and frog leg lateral view of the right hip, 2 images. AP view of the pelvis, 1 image. FINDINGS: Lumbar spine: Mild facet joint space narrowing and arthropathy at L4-L5 and L5-S1, progressed from prior. Vertebral body heights are normal. No fracture or spondylolisthesis. Intervertebral disc heights are maintained without significant degenerative disc disease. Bone mineralization is normal. Soft tissues are unremarkable. Right hip: The femoral head is well-seated within the acetabulum. No significant soft tissue abnormality. No radiopaque foreign body. Pelvis: The pelvic rim is intact. No pubic symphysis diastases. Sacroiliac joint spaces are well-maintained without erosions or surrounding sclerosis. The left hip is intact. XR/XR hip RT min 2V IMPRESSION: 1. No acute fracture or malalignment of the lumbar spine, right hip, or pelvis. 2. Mild facet joint space narrowing and arthropathy at L4-L5 and L5-S1, progressed from prior. Electronically signed by: Christiane Levine DO 06/02/2024 10:49 AM [facility] Dictated By: Christiane Levine Signed By: <Electronically signed by Christiane Levine in OV> 06/02/24 1049 DD/ 1527 TD/TT: 06/01/24 1540 Parasitology Teacher: us Adal Mccarthy MD IMG XR PROCEDURES Fin al Result * XR Lumbar Spine 2-3 Views (06/01/2024 3:27 PM EST) Anatomical Region Laterality Modality Spine, L-spine Radiographic Kasie ging 06/01/2024 3:27 PM EST Narrative 06/02/2024 10:52 AM EST ? [facility] ?[address] ?[place] [address] ?XRay Report ? Signed ? Patient: Hall,Nisa ?MR#: [id number] ?? [id number] ? : 1975 ?Acct:[id number] ? Age/Sex: 48 / F ?ADM Date: 06/01/24 ? Loc: HO.HHCL ? Attending Dr: Adal Alves MD ? Ordering Physician: Adal Alves MD ?? Date of Service: 06/01/24 ?? Procedure(s): XR lumbar spine 2-3V ?? Accession Number(s): [id number] ? cc: Adal Alves MD ? EXAMINATION: ?? XR lumbar spine 2-3V (accession [id number]) ?? XR hip RT min 2V (accession [id number]) ?? XR pelvis 1-2V (accession [id number]) ? CLINICAL INFORMATION: ?? FALL, LOW BACK PAIN Fibromyalgia, right HIP PAIN S/P FALL. ? COMPARISON: ?? Lumbar spine radiograph 05/08/23, left hip radiograph 05/08/23 ? TECHNIQUE: ?? AP and lateral views of the lumbar spine and lateral view of the ?? lumbosacral junction, 3 images. ?? AP and frog leg lateral view of the right hip, 2 images. ?? AP view of the pelvis, 1 image. ? FINDINGS: ?? Lumbar spine: ?? Mild facet joint space narrowing and arthropathy at L4-L5 and L5-S1, ?? progressed from prior. Vertebral body heights are normal. No fracture ?? or spondylolisthesis. Intervertebral disc heights are maintained ?? without significant degenerative disc disease. Bone mineralization is ?? normal. Soft tissues are unremarkable. ? Right hip: ?? The femoral head is well-seated within the acetabulum. No significant ?? soft tissue abnormality. No radiopaque foreign body. ? Pelvis: ?? The pelvic rim is intact. No pubic symphysis diastases. Sacroiliac ?? joint spaces are well-maintained without erosions or surrounding ?? sclerosis. The left hip is intact. ? XR/XR lumbar spine 2-3V ?? IMPRESSION: ?? 1. ??No acute fracture or malalignment of the lumbar spine, right hip, ?? or pelvis. ?? 2. ??Mild facet joint space narrowing and arthropathy at L4-L5 and ?? L5-S1, progressed from prior. ? Electronically signed by: ??Christiane Levine DO ??06/02/2024 10:49 AM EST ?? RP ? Dictated By: ?Christiane Levine ? Signed By: ?<Electronically signed by Christiane Levine in OV> ? 06/02/24 1049 ? DD/ 1527 ? TD/TT: 06/01/24 1540 ? Parasitology Teacher: ? Procedure Note Rosaura, Image - 06/02/[address] [address] XRay Report Signed Patient: Nisa HallMR#: [id number] : 1975Acct:[id number] Age/Sex: 48 / FADM Date: 06/01/24 Loc: HO.HHCL Attending Dr: Adal Alves MD Ordering Physician: Adal Alves MD Date of Service: 06/01/24 Procedure(s): XR lumbar spine 2-3V Accession Number(s): [id number] cc: Adal Alves MD EXAMINATION: XR lumbar spine 2-3V (accession [id number]) XR hip RT min 2V (accession [id number]) XR pelvis 1-2V (accession [id number]) CLINICAL INFORMATION: FALL, LOW BACK PAIN Fibromyalgia, right HIP PAIN S/P FALL. COMPARISON: Lumbar spine radiograph 05/08/23, left hip radiograph 05/08/23 TECHNIQUE: AP and lateral views of the lumbar spine and lateral view of the lumbosacral junction, 3 images. AP and frog leg lateral view of the right hip, 2 images. AP view of the pelvis, 1 image. FINDINGS: Lumbar spine: Mild facet joint space narrowing and arthropathy at L4-L5 and L5-S1, progressed from prior. Vertebral body heights are normal. No fracture or spondylolisthesis. Intervertebral disc heights are maintained without significant degenerative disc disease. Bone mineralization is normal. Soft tissues are unremarkable. Right hip: The femoral head is well-seated within the acetabulum. No significant soft tissue abnormality. No radiopaque foreign body. Pelvis: The pelvic rim is intact. No pubic symphysis diastases. Sacroiliac joint spaces are well-maintained without erosions or surrounding sclerosis. The left hip is intact. XR/XR lumbar spine 2-3V IMPRESSION: 1. No acute fracture or malalignment of the lumbar spine, right hip, or pelvis. 2. Mild facet joint space narrowing and arthropathy at L4-L5 and L5-S1, progressed from prior. Electronically signed by: Christiane Levine DO 06/02/2024 10:49 AM EST RP Dictated By: Christiane Levine Signed By: <Electronically signed by Christiane Levine in OV> 06/02/24 1049 DD/ 1527 TD/TT: 06/01/24 1540 Parasitology Teacher: Adal Mccarthy MD IMG XR PROCEDURES Fin al Result * Syphilis Screen (06/01/2024 3:05 PM EST) Syphilis Screen Nonreactive Nonreactive [facility] Blood Venous blood specimen / Unknown 06/01/2024 3:05 PM EST 06/01/2024 4:07 PM EST Adal Mccarthy MD LAB BLOOD ORDERABLES Final Result [facility] [address] [place] [phone] * Vitamin B12/Folate, Serum Panel (06/01/2024 3:05 PM EST) Vitamin B12 583 200 - 900 pg/mL [facility] Comment:NORMAL 200-900 PG/ML INDETERMINATE 160-199 PG/ML DEFICIENT < 160 PG/ML Folate 13.7 > or = 4.0 ng/mL [facility] Comment:Reference Values:> o r = 4.0 ng/mL< 4.0 ng/mL suggests folate deficiency Methotrexate, aminopterin and folinic acid(leucovorin) are chemotherapeutic agents whose molecularstructures are similar to folate; therefore, the Architectfolate assay cannot be used for patients using these drugs. Blood Venous blood specimen / Unknown 06/01/2024 3:05 PM EST 06/01/2024 4:07 PM EST Adal Mccarthy MD LAB BLOOD ORDERABLES Final Result [facility] [address] [place] [phone] * T-SPOT??.TB (06/01/2024 3:05 PM EST) Pathologist [facility] T Spot TB Negative Negative [facility] Comment:A negative test resu lt does not exclude the possibilityof exposure to or infection with Mycobacteriumtuberculosis (M. tuberculosis). Patients with recentexposure to TB infected individuals exhibiting anegative T-SPOT.TB result should be considered forretesting within 6 weeks or if other relevant clinicalsymptoms indicate. Results from T-SPOT.TB testing mustbe used in conjunction with each individual'sepidemiological history, current medical status,and results of other diagnostic evaluations.The T-SPOT.TB test is qualitative and results arereported as positive, borderline, or negative, giventhat the test controls perform as expected. In linewith the Centers for Disease Control and Prevention's2010 recommendation to report quantitative measurementsalongside the qualitative result, the laboratoryprovides spot counts for informational purposes only.The T-SPOT.TB test should not be interpreted as aquantitative test. TS PANEL A 0 [facility] TS PANEL B 0 [facility] Negative Control Passed [facility] Positive Control Passed [facility] Comment:For additional infor richi, please refer tohttp://education.[employer]/faq/DJE758(This link is being provided for informational/educational purposes only.)THIS TEST WAS PERFORMED AT:[facility] [id number] [place] [address]TBPOCNFMARCOS HUGHES MD,PHD 06/01/2024 3:05 PM EST 06/01/2024 4:07 PM EST us Adal Mccarthy MD LAB BLOOD ORDERABLES Final Result [facility] [address] [place] [phone] * Lyme Disease Ab with Reflex to Blot (IgG, IgM) (06/01/2024 3:05 PM EST) Lyme Antibody Screen <0.90 index [facility] Comment:Index Interpretation ----- < 0.90 Negative 0.90-1.09 Equivocal > 1.09 PositiveAs recommended by the Food and Drug Administration(FDA), all samples with positive or equivocalresults in a Borrelia burgdorferi antibody screenwill be tested using a blot method. Positive orequivocal screening test results should not beinterpreted as truly positive until verified as suchusing a supplemental assay (e.g., B. burgdorferi blot).The screening test and/or blot for B. burgdorferiantibodies may be falsely negative in early stagesof Lyme disease, including the period when erythemamigrans is apparent.THIS TEST WAS PERFORMED AT:[facility] [address] [address]EIAAZZECHARIAH RUCKER MD Lyme Blot TNP [facility] 06/01/2024 3:05 PM EST 06/01/2024 4:07 PM EST us Adal Mccarthy MD LAB BLOOD ORDERABLES Final Result [facility] [address] [place] [address] [phone] * (ABNORMAL) CBC auto differential (06/01/2024 3:05 PM EST) White Blood Count 11.5(H) 4.8 - 10.8 X10*3/uL [facility] Red Blood Count 4.55 4.20 - 5.50 X10*6/uL [facility] Hemoglobin 12.3 12.0 - 16.0 g/dl [facility] Hematocrit 37.8 37.0 - 47.0 % [facility] Mean Corpuscular Volume 83.1 80.0 - 98.0 fL [facility] Mean Corpuscular Hemoglobin 27.0 27.0 - 33.0 pg [facility] Mean Corpuscular HGB Conc 32.5 31.0 - 35.0 g/dl [facility] Red Cell Distribution Width 15.5 11.0 - 16.0 % [facility] Platelet Count 398 160 - 400 X10*3/uL [facility] Mean Platelet Volume 9.8 9.4 - 12.3 fL [facility] Neutrophils Percent Auto 65.8 45 - 73 % [facility] Imm Gran Pct Auto 0.3 0.0 - 0.4 % [facility] Lymphocytes Percent Auto 25.5 20 - 40 % [facility] Monocytes Percent Auto 5.3 2 - 11 % [facility] Eosinophils Percent Auto 2.2 0 - 4 % [facility] Basophils Percent Auto 0.9 0 - 2 % [facility] NRBC Pct Auto 0.0 0.0 - 0.2 /100WBC [facility] Neutrophils Absolute Auto 7.6 2.0 - 8.3 x10*3/uL [facility] Imm Gran Abs Auto 0.03 0.00 - 0.03 X10*3/uL [facility] Lymphocytes Absolute Auto 2.9 1.2 - 4.9 X10*3/uL [facility] Monocytes Absolute Auto 0.6 0.1 - 1.2 X10*3/uL [facility] Eosinophils Absolute Auto 0.3 0.0 - 0.4 X10*3/uL [facility] Basophils Absolute Auto 0.1 0.0 - 0.2 X10*3/uL [facility] NRBC Abs Auto 0.000 0.0 - 0.012 X10*3/uL [facility] Blood Venous blood specimen / Unknown 06/01/2024 3:05 PM EST 06/01/2024 4:07 PM EST dAal Mccarthy MD LAB BLOOD ORDERABLES Final Result [facility] [address] [facility] [place] [address] [phone] * BI US Breast Limited Left (09/24/2023 1:55 PM EST) Anatomical Region Laterality Modality Breast Left Ultrasound 09/24/2023 1:55 PM EST Narrative 09/24/2023 2:03 PM EST ? [facility] [place] ? [address] ?[place] [address] ? Ultrasound Report ? Signed ? Patient: Hall,Nisa ?MR#: [id number] ?? [id number] ? : 1975 ?Acct:[id number] ? Age/Sex: 47 / F ?ADM Date: 09/24/23 ? Loc: HO.MAMMO ? Attending Dr: Adal Alves MD ? Ordering Physician: Adal Alves MD ?? Date of Service: 09/24/23 ?? Procedure(s): US breast LT limited mamm only ?? Accession Number(s): [id number] ? cc: Adal Alves MD ? EXAMINATION: ?? MM DIAGNOSTIC DIGITAL BREAST TOMOSYNTHESIS, LEFT ?? US BREAST LIMITED, LEFT ? MAMMOGRAPHY: ?? CLINICAL INFORMATION: ? Evaluate focal asymmetry left breast seen upper outer quadrant on ?? recent screening exam 08/11/2023. ? COMPARISON: ?? Mammography: 08/11/2023, 01/13/2018. ? TECHNIQUE: ?? Digital breast tomosynthesis is performed in the following views: Left ?? CC spot compression 3-D views x2, left MLO spot compression view x1, ?? and a full-field left 3-D digital mediolateral view. Computer-aided ?? diagnosis was used for this study. ? FINDINGS: ?? The breasts are heterogeneously dense, which may obscure small masses ?? (ACR BI-RADS breast composition Category c). ? There is a stable dense region of tissue in the upper outer left ?? breast, quite similar to 2018. Spot compression views demonstrate no ?? mass or region of architectural distortion which is inseparable from ?? the dense island of tissue in this region. The full field 90 degree ?? left mediolateral view also demonstrates no definite discrete ?? abnormality aside from heterogeneously dense tissue. There is a left ?? nipple ring. ? This region will be evaluated by ultrasound. ? ULTRASOUND: ?? CLINICAL INFORMATION: ?? As above. ? COMPARISON: ?? None ? TECHNIQUE: ?? Targeted sonographic evaluation left breast upper outer quadrant was ?? performed using a high frequency linear transducer. ??Selected archived ?? documentation. ? FINDINGS: ? LEFT BREAST: There is dense fibroglandular tissue in the upper outer ?? quadrant. At the 2:00 axis, 11 cm from the nipple, there is an anechoic ?? simple cyst measuring 1.7 x 1.4 x 0.8 cm. There are 2 small abutting 5 ?? mm simple cysts. There is no solid mass, area of abnormal shadowing, ?? edema in the soft tissue planes, or architectural distortion ?? identified. ? US/US breast LT limited mamm only ?? IMPRESSION: ?? There are no findings suspicious for malignancy in the left breast. ? There are 3 simple cysts in the upper outer quadrant interposed within ?? dense fibrocystic tissue, the larger measuring 1.7 x 1.4 x 0.8 cm. ?? These are benign. ? Recommend the patient return to routine annual screening. ? OVERALL ASSESSMENT: ?? Mammography: BI-RADS 2 - Benign Findings ?? Ultrasound: BI-RADS 2 - Benign Findings ? RECOMMENDATION: ?? 1 year F/U ? This patient's information was entered into a reminder system with a ?? target due date for their next mammogram. ? Dictated By: ?Marcel Allen MD ? Signed By: ?<Electronically signed by Marcel Allen MD in OV> ?09/24/23 1359 ? DD/ 1355 ? TD/TT: ? Parasitology Teacher: ? Procedure Note Donevelynter, Image - 09/24/2023 [facility] [address] [place] [address] Ultrasound Report Signed Patient: Nisa HallMR#: [id number] : 1975Acct:[id number] Age/Sex: 47 / FADM Date: 09/24/23 Loc: HO.MAMMO Attending Dr: Adal Alves MD Ordering Physician: Adal Alves MD Date of Service: 09/24/23 Procedure(s): US breast LT limited mamm only Accession Number(s): [id number] cc: Adal Alves MD EXAMINATION: MM DIAGNOSTIC DIGITAL BREAST TOMOSYNTHESIS, LEFT US BREAST LIMITED, LEFT MAMMOGRAPHY: CLINICAL INFORMATION: Evaluate focal asymmetry left breast seen upper outer quadrant on recent screening exam 08/11/2023. COMPARISON: Mammography: 08/11/2023, 01/13/2018. TECHNIQUE: Digital breast tomosynthesis is performed in the following views: Left CC spot compression 3-D views x2, left MLO spot compression view x1, and a full-field left 3-D digital mediolateral view. Computer-aided diagnosis was used for this study. FINDINGS: The breasts are heterogeneously dense, which may obscure small masses (ACR BI-RADS breast composition Category c). There is a stable dense region of tissue in the upper outer left breast, quite similar to 2018. Spot compression views demonstrate no mass or region of architectural distortion which is inseparable from the dense island of tissue in this region. The full field 90 degree left mediolateral view also demonstrates no definite discrete abnormality aside from heterogeneously dense tissue. There is a left nipple ring. This region will be evaluated by ultrasound. ULTRASOUND: CLINICAL INFORMATION: As above. COMPARISON: None TECHNIQUE: Targeted sonographic evaluation left breast upper outer quadrant was performed using a high frequency linear transducer. Selected archived documentation. FINDINGS: LEFT BREAST: There is dense fibroglandular tissue in the upper outer quadrant. At the 2:00 axis, 11 cm from the nipple, there is an anechoic simple cyst measuring 1.7 x 1.4 x 0.8 cm. There are 2 small abutting 5 mm simple cysts. There is no solid mass, area of abnormal shadowing, edema in the soft tissue planes, or architectural distortion identified. US/US breast LT limited mamm only IMPRESSION: There are no findings suspicious for malignancy in the left breast. There are 3 simple cysts in the upper outer quadrant interposed within dense fibrocystic tissue, the larger measuring 1.7 x 1.4 x 0.8 cm. These are benign. Recommend the patient return to routine annual screening. OVERALL ASSESSMENT: Mammography: BI-RADS 2 - Benign Findings Ultrasound: BI-RADS 2 - Benign Findings RECOMMENDATION: 1 year F/U This patient's information was entered into a reminder system with a target due date for their next mammogram. Dictated By: Marcel Allen MD Signed By: <Electronically signed by Marcel Allen MD in OV> 09/24/23 1359 DD/ 1355 TD/TT: Parasitology Teacher: us Adal Mccarthy MD IM US PROCEDURES Fin al Result * HEPATITIS C AB W/REFL TO HCV RNA, QN, PCR (02/05/2022 10:03 AM EDT) HEPATITIS C ANTIBODY NON-REACT HENRIQUE NON-REACT HENRIQUE [facility] INDEX 0.03 <1.00 [facility] Comment: ?? HCV antibody was non-reactive. There is no laboratory ?? evidence of HCV infection. ?? In most cases, no further action is required. However, if recent HCV exposure is suspected, a test for HCV RNA (test code 49269) is suggested. ?? For additional information please refer to http://[employer]/faq/TCY62p6 (This link is being provided for informational/ educational purposes only.) ?? 02/05/2022 10:0 3 AM EDT us Adal Mccarthy MD HISTORICAL/NON ORDERA BLE LABS Final Result Performing Organization Address [facility]/ZIP Co de Phone Number [facility] [address] [place] [address], * HIV 1/2 ANTIGEN/ANTIBODY,FOURTH GENERATION W/RFL (02/05/2022 9:38 AM EDT) Pathologist [facility] HIV-1/2 ANTIGEN AND ANTIBODIES, 4TH GENERATION W/ REFLEX TNP [facility] Comment: TEST NOT PERFORMED ?? No serum received. 02/05/2022 9:38 AM EDT us Adal Mccarthy MD LAB BLOOD ORDERABLES Final Result Performing Organization Address [facility] de Phone Number [facility] [address] [place] [address], * Hm Colonoscopy (08/31/2018 3:43 PM EST) us Adal Mccarthy MD HEALTH MAINTENANCE Fi nal Result * HPV mRNA E6/E7 (06/04/2018 12:00 AM EST) HPV mRNA E6/E7 Not Detected NOT DETECTED [facility] Comment: This test was performed using the APTIMA(R) HPV Assay ([employer] This assay detects E6/E7 viral messenger RNA (mRNA) from 14 high-risk HPV types (16,18,31,33,35,39,45,51, 52,56,58,59,66,68). For additional information please refer to: http://education.[employer]/faq/QSI436b6 (This link is being provided for informational/ educational purposes only.) The analytical performance characteristics of this assay have been determined by [employer] [place], [place]. The modifications have not been cleared or approved by the FDA. This assay has been validated pursuant to the CLIA regulations and is used for clinical purposes. Test Performed by [facility], [facility], [address] [place] [address] Marcos Hughes M.D., Ph.D., Director of Laboratories , CLIA [id number] Please note: ??Effective 04/08/2016, HPV testing will be performed using [employer] APTIMA test which targets mRNA. Detecting mRNA instead of DNA, as in older methods, offers significant improvements in specificity. 06/04/2018 us Lisa Goldstein CNM HISTORICAL/NON ORDERABLE LABS Final Result [facility] [address] from Last 3 Months or Most Recently Relevant to Health Maintenance Insurance Care Teams Director Oracle Database Relationship Specialty Start Date End Date Adal Terrell MD [address] [place], [place] [address] [address] PCP - General Internal Medicine 03/08/14
--- OUTSIDE RECORDS SUMMARY | 2024-08-26 18:25 | XMS_ITS | Encounter Summary ---
Author Organization [employer] Address [address] [place] [address] Care Team Providers Care Hydrochloric Acid Operator Name Role Phone Adal Terrell MD Primary Care Provide r Reason for Visit * Reason Comments Med Refill Encounter Details Date Type Department Care Team (Late st Contact Info) Description 07/03/2023 Refill [facility] [address] [place], [place] [phone] Adal Terrell MD [address] [place], [place] [phone] Low vitamin D level Social History Tobacco Use Types Packs/Day Years [...] Description 09/08/2024 2:15 PM EST Clinical Support [facility] [address] [place] [address] Marci Kennedy, RN [address] [place] [address] 09/09/2024 3:00 PM EST Office Visit [facility] [address] [place] [address] Adal Terrell MD [address] [place] [address] documented as of this encounter Visit Diagnoses Diagnosis Low vitamin D level documented in this encounter Additional Health Concerns Assessment Noted Time PHQ-9 Depression Total Score: 0 09/10/19 23 11:00 AM EST documented as of this encounter Care Teams Hydrochloric Acid Operator Relationship Specialty Start Date End Date Adal Terrell MD [address] [place] [address] PCP - General Internal Medicine 03/08/14 documented as of this encounter
--- OUTSIDE RECORDS SUMMARY | 2024-08-26 18:25 | XMS_ITS | Encounter Summary ---
Author Organization [employer] Address [address] [place] [address] Care Team Providers Care Technical Communicator Name Role Phone Adal Terrell MD Primary Care Provide r Encounter Details Date Type Department Care Team (Late st Contact Info) Description 08/02/2024 Telephone [facility] [address] [place] [address] Adal Terrell MD [address] [place] [address] Social History Tobacco Use Types Packs/Day Years [...] encounter Miscellaneous Notes * Telephone Encounter - Cammie Akhtar - 08/02/2024 2:47 PM EST Imaging lab test letter sent on 08/02/2024. documented in this encounter Plan of Treatment Upcoming Encounters Date Type Department Care Team (Late st Contact Info) Description 09/08/2024 2:15 PM EST Clinical Support [facility] [address] [place] [address] Marci Kennedy, YANET [address] [place] [address] 09/09/2024 3:00 PM EST Office Visit [facility] [address] [place] [address] Adal Terrell MD [address] [place] [address] documented as of this encounter Visit Diagnoses Not on filedocumented in this encounter Additional Health Concerns Assessment Noted Time PHQ-9 Depression Total Score: 5 01/27/20 24 10:54 AM EDT documented as of this encounter Care Teams Technical Communicator Relationship Specialty Start Date End Date Adal Terrell MD [address] [place] [address] PCP - General Internal Medicine 03/08/14 documented as of this encounter
== END 2024-08-26 14:27 | disposition home or self-care (01) ==
LOC: HO.MAMMO 14:26
PROVIDERS: PCP Internal Medicine; Visit Provider Internal Medicine
DX: Z12.31 Encounter for screening mammogram for malignant neoplasm of breast (principal)
CPT/HCPCS: 77063; 77067

== ENCOUNTER → 2024-08-26 15:00 | Outpatient (BNV) | payer MEDICAID, SELFPAY | PROVIDERS: PCP Internal Medicine; Visit Provider Internal Medicine | DX: Z12.31 Encounter for screening mammogram for malignant neoplasm of breast (principal) | CPT/HCPCS: 77063; 77067 ==

== ENCOUNTER 2024-09-01 14:48 | Outpatient (REF) | payer MEDICAID, SELFPAY ==
[2024-09-01 15:42] LABS: Iron 57 mcg/dL (30-160); Percent Iron Saturation 16 % (15-50); Total Iron Binding Capacity 353 mcg/dL (228-428); Unsaturated Iron Binding 296 ug/dL
--- OUTSIDE RECORDS SUMMARY | 2024-09-01 15:57 | XMS_ITS | Clinical Summary ---
Author Organization [facility] it Address [address] [place] [address] Care Team Providers Care Cashier And Salesperson Name Role Phone Unavailable Primary Care Provider [...] Documents on File Type Date Recorded Patient Side Laster Tack Expl anation Health Care Decision (hx) 07/06/2020 [...]
--- OUTSIDE RECORDS SUMMARY | 2024-09-01 15:57 | XMS_ITS | Clinical Summary ---
Author Organization [facility] Address [address] [place] [address] Care Team Providers Care Data Abstractor Name Role Phone Unavailable Primary Care Provider [...]
[2024-09-01 16:05] LABS: TSH reflex Free T4 1.74 uIU/mL (0.32-4.0)
[2024-09-01 16:18] LABS: Vitamin B12 540 pg/mL (200-900)
[2024-09-01 16:40] LABS: Estimated Average Glucose 123 mg/dL; Hemoglobin A1C 134.4239 umol/L; Hemoglobin A1c % 5.9 % (<6.0); Total Hemoglobin (HGBA1C) 3305.2945 umol/L
[2024-09-03 15:34] LABS: Homocysteine 7.3 umol/L (<10.4)
[2024-09-03 17:58] LABS: IgA 581 mg/dL (47-310); IgG 1383 mg/dL (600-1640); IgM 115 mg/dL (50-300)
[2024-09-03 20:39] LABS: Transglutaminase IgA <1.0 U/mL
[2024-09-07 08:38] LABS: Methylmalonic Acid 103 nmol/L (55-335)
== END 2024-09-01 14:49 | disposition home or self-care (01) ==
LOC: HO.LAB 14:48
PROVIDERS: Physician Assistant Medical; PCP Internal Medicine; Visit Provider Internal Medicine
DX: R53.83 Other fatigue (principal); G47.9 Sleep disorder, unspecified; K52.9 Noninfective gastroenteritis and colitis, unspecified; K21.9 Gastro-esophageal reflux disease without esophagitis; R10.11 Right upper quadrant pain; Z79.891 Long term (current) use of opiate analgesic
CPT/HCPCS: 36415; 82607; 82746; 82784; 83036; 83090; 83540; 83921; 84443; 86364; 99202

== ENCOUNTER 2024-09-04 13:17 | Outpatient (REF) | payer MEDICAID, SELFPAY ==
--- OUTSIDE RECORDS SUMMARY | 2024-09-04 13:19 | XMS_ITS | Clinical Summary ---
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
--- OUTSIDE RECORDS SUMMARY | 2024-09-04 13:19 | XMS_ITS | Clinical Summary ---
Author Organization [facility] Address [address] [place] [address] Care Team Providers Care Rotary Driller Helper Name Role Phone Unavailable Primary Care Provider [...]
[2024-09-10 20:12] LABS: Calprotectin, Fecal 189 mcg/g
== END 2024-09-04 13:18 | disposition home or self-care (01) ==
LOC: HO.LNP 13:17
PROVIDERS: Visit Provider Internal Medicine
DX: K52.9 Noninfective gastroenteritis and colitis, unspecified (principal)
CPT/HCPCS: 83993

== ENCOUNTER 2024-09-08 09:10 | Outpatient (REF) | payer MEDICAID, SELFPAY ==
--- NOTE | ~2024-09-08 | FL_ITS ---
EXAMINATION: XR FLUOROSCOPY UPPER GI WITH AIR CLINICAL INFORMATION: Reflux. Chest discomfort. COMPARISON: None TECHNIQUE: Fluoroscopic air contrast upper GI examination was performed utilizing standard techniques with thin and thick barium and effervescent granules. Numerous spot images were obtained. FINDINGS: Dual and single contrast images of the esophagus demonstrate normal caliber, and contour. There is a mild granular appearance of the esophageal mucosa, suggestive of esophagitis. No evidence of stricture, mass, or ulcerations identified. Esophageal peristalsis was normal. A very small type I hiatal hernia is present. Gastroesophageal reflux is seen up to the level the of the thoracic inlet. Dual contrast and single contrast images of the stomach demonstrated a normal contour. Evaluation of the gastric mucosa is limited due to poor coating of the barium. The area gastrica have a prominent appearance, suggestive of gastritis. No masses or ulcerations are seen. Contrast freely passed into the gastric antrum and duodenal bulb without delay. Single and air-contrast images of the duodenal bulb demonstrate no abnormality. The duodenal sweep has a normal appearance, course, and mucosal fold appearance. The imaged proximal jejunum has a normal fold pattern and caliber. FLUOROSCOPY TIME: 2 minutes 8 seconds Number of Spot Images: 9 Number of Cine: 10 DOSE AREA PRODUCT: 1488 uGy-m2 (microgray-meter squared) FL/FL barium swallow with air IMPRESSION: 1. Mild granular appearance of the esophageal mucosa, suggestive of esophagitis. 2. Very small type I hiatal hernia with significant show esophageal reflux. 3. Prominent appearance of the areae gastricae, suggestive of gastritis. This procedure was performed by Anshul Adams PA-C, and supervised by Dr. Allen Electronically signed by: Marcel Allen MD 09/09/2024 09:01 AM [facility]
--- OUTSIDE RECORDS SUMMARY | 2024-09-08 10:07 | XMS_ITS | Encounter Summary ---
Author Organization [employer] Address [address] [place] [address] Care Team Providers Care Golf Range Attendant Name Role Phone Adal Terrell MD Primary Care Provide r Reason for Visit * Reason Onset Date Comments Nurse Triage 03/05/2024 Encounter Details Date Type Department Care Team ([facility] st Contact Info) Description 03/05/2024 Telephone [facility] [address] [place] [address] Adal Terrell MD [address] [place] [address] Nurse Triage Social History Tobacco Use Types [...] Description 09/08/2024 2:15 PM EST Clinical Support [facility] [address] [place] [address] Marci Kennedy, RN [address] [place] [address] 09/09/2024 3:00 PM EST Office Visit [facility] [address] [place] [address] Adal Terrell MD [address] [place] [address] documented as of this encounter Visit Diagnoses Not on filedocumented in this encounter Additional Health Concerns Assessment Noted Time PHQ-9 Depression Total Score: 5 01/27/20 24 10:54 AM EDT documented as of this encounter Care Teams Golf Range Attendant Relationship Specialty Start Date End Date Adal Terrell MD [address] [place] [address] PCP - General Internal Medicine 03/08/14 documented as of this encounter
--- OUTSIDE RECORDS SUMMARY | 2024-09-08 10:07 | XMS_ITS | Encounter Summary ---
Author Organization [employer] Address [address] [place] [address] Care Team Providers Care Shell Machine Operator Name Role Phone Adal Terrell MD Primary Care Provide r Reason for Visit * Reason Onset Date Comments Appointment Request 03/19/2023 Encounter Details Date Type Department Care Team ([facility] st Contact Info) Description 03/19/2023 Telephone [facility] [address] [place] [phone] Adal Terrell MD [address] [place] [address] Appointment Request Social History Tobacco Use Types [...] EDT Tc from pt requesting to r/s DIRECTOR OF FRONT OFFICE visit on 03/21/2023 @ 11:30 am. Pt states due to an emergency she has to fly out to [place] and won't be back in two weeks. Please contact pt at [phone] documented in this encounter Plan of Treatment Upcoming Encounters Date Type Department Care Team (Late st Contact Info) Description 09/08/2024 2:15 PM EST Clinical Support [facility]S [address] [place] [address] Marci Kennedy, RN [address] [place] [address] 09/09/2024 3:00 PM EST Office Visit [facility] [address] [place] [phone] Adal Terrell MD [address] [place] [address] documented as of this encounter Visit Diagnoses Not on filedocumented in this encounter Additional Health Concerns Assessment Noted Time PHQ-9 Depression Total Score: 0 09/10/19 11:00 AM EST documented as of this encounter Care Teams Shell Machine Operator Relationship Specialty Start Date End Date Adal Terrell MD [address] [place] [address] PCP - General Internal Medicine 03/08/14 documented as of this encounter
--- OUTSIDE RECORDS SUMMARY | 2024-09-08 10:07 | XMS_ITS | Encounter Summary ---
Author Organization [employer] Address [address] [place] [address] Care Team Providers Care Supervisor Drawing Name Role Phone Adal Terrell MD Primary Care Provide r Reason for Visit * Reason Onset Date Comments Med Refill 01/31/2023 Encounter Details Date Type Department Care Team ([facility] st Contact Info) Description 01/31/2023 Telephone [facility] [address] [place] [address] Adal Terrell MD [address] [place] [address] Med Refill Social History Tobacco Use Types [...] Description 09/08/2024 2:15 PM EST Clinical Support [facility] [address] [place] [address] Marci Kennedy, RN [address] [place] [address] 09/09/2024 3:00 PM EST Office Visit [facility] [address] [place] [address] Adal Terrell MD [address] [place] [address] documented as of this encounter Visit Diagnoses Not on filedocumented in this encounter Additional Health Concerns Assessment Noted Time PHQ-9 Depression Total Score: 0 09/10/19 23 11:00 AM EST documented as of this encounter Care Teams Supervisor Drawing Relationship Specialty Start Date End Date Adal Terrell MD [address] [place], [place] [phone] PCP - General Internal Medicine 03/08/14 documented as of this encounter
--- OUTSIDE RECORDS SUMMARY | 2024-09-08 10:07 | XMS_ITS | Encounter Summary ---
Author Organization [employer] Address [address] [facility] 7t [place] [address] Care Team Providers Care Powder Mill Operator Name Role Phone Adal Terrell MD Primary Care Provide r Reason for Visit * Reason Onset Date Comments Med Refill 01/02/2023 Encounter Details Date Type Department Care Team ([facility] st Contact Info) Description 01/02/2023 Telephone [facility] MED[facility]INE [address] [place] [address] [phone] Adal Terrell MD [address] [place] [address] Med Refill Social History Tobacco Use Types [...] Description 09/08/2024 2:15 PM EST Clinical Support [facility] [address] [place] [address] Marci Kennedy, RN [address] [place] [address] 09/09/2024 3:00 PM EST Office Visit [facility] [address] [place] [address] Adal Terrell MD [address] [place] [address] documented as of this encounter Visit Diagnoses Not on filedocumented in this encounter Additional Health Concerns Assessment Noted Time PHQ-9 Depression Total Score: 0 09/10/19 11:00 AM EST documented as of this encounter Care Teams Powder Mill Operator Relationship Specialty Start Date End Date Adal Terrell MD [address] [place] [address] PCP - General Internal Medicine 03/08/14 documented as of this encounter
--- OUTSIDE RECORDS SUMMARY | 2024-09-08 10:07 | XMS_ITS | Encounter Summary ---
Author Organization [employer] Address [address] [facility] 7[address] [place] [address] Care Team Providers Care Reading Specialist Name Role Phone Adal Terrell MD Primary Care Provide r Reason for Visit * Reason Onset Date Comments Med Refill 11/05/2022 Encounter Details Date Type Department Care Team (Late Contact Info) Description 11/05/2022 Telephone [facility] MEDICINE [address] [place] [phone] Adal Terrell MD [address] [place] [address] Med Refill Social History Tobacco Use Types [...] 2:15 PM EST Clinical Support [facility] [address] [place] [address] Marci Kennedy, RN [address] [place] [address] 09/09/2024 3:00 PM EST Office Visit [facility] MED[facility] [address] [place] [address] Adal Terrell MD [address] [place] [address] documented as of this encounter Visit Diagnoses Not on filedocumented in this encounter Additional Health Concerns Assessment Noted Time PHQ-9 Depression Total Score: 0 09/10/19 23 11:00 AM EST documented as of this encounter Care Teams Reading Specialist Relationship Specialty Start Date End Date Adal Terrell MD [address] [place] [address] PCP - General Internal Medicine 03/08/14 documented as of this encounter
--- OUTSIDE RECORDS SUMMARY | 2024-09-08 10:07 | XMS_ITS | Encounter Summary ---
Author Organization [employer] Address [address] [facility] [facility] [address] [place] [address] Care Team Providers Care Bee Rancher Name Role Phone Adal Terrell MD Primary Care Provide r Encounter Details Date Type Department Care Team (Late st Contact Info) Description 02/16/2024 Orders Only [facility] MEDICINE [address] [place], [place] [phone] Provider, MD Tong Social History Tobacco Use [...] Description 09/08/2024 2:15 PM EST Clinical Support [facility] 505 [place] [address] Marci Kennedy, YANET 505 [place] [address] 09/09/2024 3:00 PM EST Office Visit [facility] [address] [place] [address] Adal Terrell MD [address] [place] [address] documented as of this encounter Procedures Procedure [...] documented as of this encounter Care Teams Bee Rancher Relationship Specialty Start Date End Date Adal Terrell MD [address] [place] [address] PCP - General Internal Medicine 03/08/14 documented as of this encounter
--- OUTSIDE RECORDS SUMMARY | 2024-09-08 10:08 | XMS_ITS | Encounter Summary ---
Author Organization [employer] Address [address] [address] 7[address] [place] [address] Care Team Providers Care Ornamenter Hand Name Role Phone Adal Terrell MD Primary Care Provide r Reason for Visit * Reason Onset Date Comments Letter for School/Work 12/12/2023 Appointment Request 12/12/2023 Encounter Details Date Type Department Care Team ([facility] Contact Info) Description 12/12/2023 Telephone [facility] MEDICINE 230 [place], [place] [phone] Adal Terrell MD [address] [place] [address] Letter for School/Work; Appointment Request Social History [...] 2:15 PM EST Clinical Support [facility] 505 [place] [address] Marci Kennedy, YANET 505 [place] [address] 09/09/2024 3:00 PM EST Office Visit [facility] MEDICINE 230 [place] [address] Adal Terrell MD [address] [place] [address] documented as of this encounter Visit Diagnoses Not on filedocumented in this encounter Additional Health Concerns Assessment Noted Time PHQ-9 Depression Total Score: 0 09/10/19 23 11:00 AM EST documented as of this encounter Care Teams Ornamenter Hand Relationship Specialty Start Date End Date Adal Terrell MD [address] [place] [address] PCP - General Internal Medicine 03/08/14 documented as of this encounter
--- OUTSIDE RECORDS SUMMARY | 2024-09-08 10:08 | XMS_ITS | Encounter Summary ---
Author Organization [employer] Address [address] 7[address] [place] [address] Care Team Providers Care Arc Furnace Operator Name Role Phone Adal Terrell MD Primary Care Provide r Reason for Visit * Reason Onset Date Comments Chart Prep 09/01/2024 Encounter Details Date Type Department Care Team ([facility] st Contact Info) Description 09/01/2024 Telephone [facility] MEDICINE [address] [place], [place] [phone] Adal Terrell MD [address] [place] [address] Chart Prep Social History Tobacco Use Types Packs/Day Years [...] encounter Miscellaneous Notes * Telephone Encounter - Britney Arzate [place] - 09/01/2024 1:55 PM EST Chart Prep Labs: done Images: done Vaccines due: Covid Due, Hep B Due, PCV20 Due, and Flu Due Referrals: Physical Therapy Pending appointment on n/a; sent a fax request in case [facility] Screenings: Colonoscopy and PAP Overdue care gaps: Sbirt and Oral Health Chart prep for upcoming appt with Dr.Esparza lion. LB documented in this encounter Plan of Treatment Upcoming Encounters Date Type Department Care Team (Late st Contact Info) Description 09/08/2024 2:15 PM EST Clinical Support [facility] [address] [place] [address] Marci Kennedy RN 505 [place] [address] 09/09/2024 3:00 PM EST Office Visit [facility] MEDICINE [address] [place] [address] Adal Terrell MD [address] [place] [address] documented as of this encounter Visit Diagnoses Not on filedocumented in this encounter Additional Health Concerns Assessment Noted Time PHQ-9 Depression Total Score: 5 01/27/20 24 10:54 AM EDT documented as of this encounter Care Teams Arc Furnace Operator Relationship Specialty Start Date End Date Adal Terrell MD [address] [place] [address] PCP - General Internal Medicine 03/08/14 documented as of this encounter
--- OUTSIDE RECORDS SUMMARY | 2024-09-08 10:08 | XMS_ITS | Encounter Summary ---
Author Organization [employer] Address [address] [facility] [address] 7[address] [place] [address] Care Team Providers Care Stove Refinisher Name Role Phone Adal Terrell MD Primary Care Provide r Reason for Visit * Reason Onset Date Comments Med Refill 04/27/2024 Encounter Details Date Type Department Care Team ([facility] Contact Info) Description 04/27/2024 Telephone [facility] MEDICINE [address] [place] [address] Adal Terrell MD [address] [place] [address] Med Refill Social History Tobacco Use Types [...] Description 09/08/2024 2:15 PM EST Clinical Support [facility]S [address] [place] [address] Marci Kennedy, RN [address] [place] [address] 09/09/2024 3:00 PM EST Office Visit [facility] MEDICINE [address] [place] [address] Adal Terrell MD [address] [place] [address] documented as of this encounter Visit Diagnoses Not on filedocumented in this encounter Additional Health Concerns Assessment Noted Time PHQ-9 Depression Total Score: 5 01/27/20 24 10:54 AM EDT documented as of this encounter Care Teams Stove Refinisher Relationship Specialty Start Date End Date Adal Terrell MD [address] [place] [address] PCP - General Internal Medicine 03/08/14 documented as of this encounter
--- OUTSIDE RECORDS SUMMARY | 2024-09-08 10:08 | XMS_ITS | Encounter Summary ---
Author Organization [employer] Address [address] [facility] [address] 7[address] [place] [address] Care Team Providers Care Showcase Trimmer Name Role Phone Adal Terrell MD Primary Care Provide r Reason for Visit * Reason Comments Med Refill Encounter Details Date Type Department Care Team ([facility] st Contact Info) Description 07/23/2023 Refill [facility] MED[facility] 230 [place], [place] [phone] Adal Terrell MD 230 [place], [place] [phone] Chronic right-sided low back pain with right-sided [...] Description 09/08/2024 2:15 PM EST Clinical Support [facility] [address] [place] [address] Marci Kennedy, RN [address] [place] [address] 09/09/2024 3:00 PM EST Office Visit [facility] MEDICINE [address] [place] [address] Adal Terrell MD [address] [place] [address] documented as of this encounter Visit Diagnoses Diagnosis 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
--- OUTSIDE RECORDS SUMMARY | 2024-09-08 10:08 | XMS_ITS | Clinical Summary ---
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 performed using [employer]'s APTIMA test which targets mRNA. Detecting mRNA instead of DNA, as in older methods, offers significant improvements in specificity. 06/04/2018 us Lisa Goldstein CNM HISTORICAL/NON ORDERABLE LABS Final Result [facility] [address] from Last 3 Months or Most Recently Relevant to Health Maintenance Insurance [employer] C3 Care Teams Attorney Law Clerk Relationship Specialty Start Date End Date Adal Terrell MD [address] [place] [phone] PCP - General Internal Medicine 03/08/14
--- OUTSIDE RECORDS SUMMARY | 2024-09-08 10:08 | XMS_ITS | Clinical Summary ---
Author Organization [facility] Address [address] [place] [address] Care Team Providers Care Consultant Education Name Role Phone Unavailable Primary Care Provider [...]
--- OUTSIDE RECORDS SUMMARY | 2024-09-08 10:08 | XMS_ITS | Encounter Summary ---
Author Organization [employer] Address [address] [place] [address] Care Team Providers Care Senior Electrical Estimator Name Role Phone Adal Terrell MD Primary Care Provide r Encounter Details Date Type Department Care Team (Latest Contact Info) Description 09/01/2024 Travel Social History Tobacco Use Types Packs/Day Years [...] - [facility] [address] [place] [address] Marci Kennedy, RN 505 [place] [address] 09/09/2024 3:00 PM EST Office Visit [facility] [address] [place] [address] Adal Terrell MD [address] [place] [address] documented as of this encounter Visit Diagnoses Not on filedocumented in this encounter Additional Health Concerns Assessment Noted Time PHQ-9 Depression Total Score: 5 01/27/20 24 10:54 AM EDT documented as of this encounter Care Teams Senior Electrical Estimator Relationship Specialty Start Date End Date Adal Terrell MD [address] [place] [address] PCP - General Internal Medicine 03/08/14 documented as of this encounter
--- OUTSIDE RECORDS SUMMARY | 2024-09-08 10:08 | XMS_ITS | Encounter Summary ---
Author Organization [employer] Address [address] [place] [address] Care Team Providers Care Attendant Sales Name Role Phone Adal Terrell MD Primary Care Provide r Reason for Visit * Reason Onset Date Comments Med Refill 02/09/2024 Encounter Details Date Type Department Care Team ([facility] Contact Info) Description 02/09/2024 Telephone [facility] [address] [place] [address] Adal Terrell MD [address] [place] [address] Med Refill Social History Tobacco Use Types [...] immediate release tablet To be sent to: [id number] [place], [place] - [address] [facility] documented in this encounter Plan of Treatment Upcoming Encounters Date Type Department Care Team (Late st Contact Info) Description 09/08/2024 2:15 PM EST Clinical Support [facility] [address] [place] [address] Marci Kennedy, YANET 505 [place] [address] 09/09/2024 3:00 PM EST Office Visit [facility] [address] [place] [address] Adal Terrell MD [address] [place], [place] [phone] documented as of this encounter Visit Diagnoses Not on filedocumented in this encounter Additional Health Concerns Assessment Noted Time PHQ-9 Depression Total Score: 5 01/27/20 24 10:54 AM EDT documented as of this encounter Care Teams Attendant Sales Relationship Specialty Start Date End Date Adal Terrell MD [address] [place] [address] PCP - General Internal Medicine 03/08/14 documented as of this encounter
--- OUTSIDE RECORDS SUMMARY | 2024-09-08 10:08 | XMS_ITS | Encounter Summary ---
Author Organization [employer] Address [address] [place] [address] Care Team Providers Care Pecan Grower Name Role Phone Adal Terrell MD Primary Care Provide r Reason for Visit * Reason Onset Date Comments Med Refill 03/08/2024 Encounter Details Date Type Department Care Team ([facility] Contact Info) Description 03/08/2024 Telephone [facility] [address] [place] [address] Adal Terrell MD 230 [place] [address] Med Refill Social History Tobacco Use Types [...] immediate release tablet To be sent to: [facility] documented in this encounter Plan of Treatment Upcoming Encounters Date Type Department Care Team (Late st Contact Info) Description 09/08/2024 2:15 PM EST Clinical Support [facility] 505 [place] [address] Marci Kennedy, RN 505 [place] [address] 09/09/2024 3:00 PM EST Office Visit [facility] [address] [place] [address] Adal Terrell MD [address] [place] [address] documented as of this encounter Visit Diagnoses Not on filedocumented in this encounter Additional Health Concerns Assessment Noted Time PHQ-9 Depression Total Score: 5 01/27/20 24 10:54 AM EDT documented as of this encounter Care Teams Pecan Grower Relationship Specialty Start Date End Date Adal Terrell MD [address] [place] [address] PCP - General Internal Medicine 03/08/14 documented as of this encounter
--- OUTSIDE RECORDS SUMMARY | 2024-09-08 10:08 | XMS_ITS | Encounter Summary ---
Author Organization [employer] Address [address] [place] [address] Care Team Providers Care Computer Systems Analyst Name Role Phone Adal Terrell MD Primary Care Provide r Encounter Details Date Type Department Care Team ([facility] st Contact Info) Description 02/05/2024 Orders Only [facility] [address] [place] [address] Adal Terrell MD [address] [place] [address] Social History Tobacco Use Types Packs/Day Years [...] 09/08/2024 2:15 PM EST Clinical Support [facility] 505 [place] [address] Marci Kennedy, RN 505 [place] [address] 09/09/2024 3:00 PM EST Office Visit [facility] [address] [place] [address] Adal Terrell MD [address] [place] [address] documented as of this encounter Procedures Procedure [...] documented as of this encounter Care Teams Computer Systems Analyst Relationship Specialty Start Date End Date Adal Terrell MD 230 [place] [address] PCP - General Internal Medicine 03/08/14 documented as of this encounter
--- OUTSIDE RECORDS SUMMARY | 2024-09-08 10:08 | XMS_ITS | Encounter Summary ---
Author Organization [employer] Address [address] [place] [address] Care Team Providers Care Middle School Volleyball Coach Name Role Phone Adal Terrell MD Primary Care Provide r Reason for Visit * Reason Comments Med Refill Encounter Details Date Type Department Care Team ([facility] st Contact Info) Description 04/05/2024 Refill [facility] [address] [place] [address] Ronel Thomas, ANP [address] [place] [address] COVID-19 Social History Tobacco Use Types Packs/Day [...] Description 09/08/2024 2:15 PM EST Clinical Support [facility] [address] [place] [address] Marci Kennedy, YANET 505 [place] [address] 09/09/2024 3:00 PM EST Office Visit [facility] [address] [place] [address] Adal Terrell MD [address] [place] [address] documented as of this encounter Visit Diagnoses Diagnosis COVID-19 documented in this encounter Additional Health Concerns Assessment Noted Time PHQ-9 Depression Total Score: 5 01/27/20 24 10:54 AM EDT documented as of this encounter Care Teams Middle [employer] Volleyball Coach Relationship Specialty Start Date End Date Adal Terrell MD [address] [place] [address] PCP - General Internal Medicine 03/08/14 documented as of this encounter
--- OUTSIDE RECORDS SUMMARY | 2024-09-08 10:08 | XMS_ITS | Clinical Summary ---
Author Organization [facility] it Address [address] [place] [address] Care Team Providers Care Quantitative Research Analyst Name Role Phone Unavailable Primary Care Provider Unavailabl e Social History Tobacco Use Types Packs/Day Years Used Date Smoking Tobacco: Never Assessed Comments Unknown Sex and Gender Information Value Date Recorded Sex Assigned at Not on file Legal Sex Female 9:25 AM EST Gender Identity Not on file Sexual Orientation Not on file Plan of Treatment Health Maintenance Due Date Last Done Comments Breast Cancer Screening 1976 DTaP,Tdap,and Td Vaccines (1 - Tdap) 11/07/1995 Hepatitis B Vaccines (1 of 3 - 19+ 3-dose series) 11/07/1995 Cervical Cancer Screening: P ap Smear 1997 COVID-19 Vaccine (2023-2 5 season) 2024 Influenza Vaccine (#1) 2024 [...] patient's age to complete this topic Meningococcal B Vacine Aged Out No lo nger eligible based on patient's age to complete [...] Documents on File Type Date Recorded 

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
--- OUTSIDE RECORDS SUMMARY | 2024-09-08 10:08 | XMS_ITS | Encounter Summary ---
Author Organization [employer] Address [address] [place] [address] Care Team Providers Care Block Machine Operator Name Role Phone Adal Terrell MD Primary Care Provide r Reason for Visit * Reason Comments Med Refill Encounter Details Date Type Department Care Team ([facility] st Contact Info) Description 08/31/2024 Refill [facility] [address] [place], [place] [phone] Adal Terrell MD 230 [place], [place] [phone] Social History Tobacco Use Types Packs/Day Years [...] [facility] [address] [place] [address] Marci Kennedy, YANET [address] [place] [address] 09/09/2024 3:00 PM EST Office Visit [facility] [address] [place] [address] Adal Terrell MD [address] [place] [address] documented as of this encounter Visit Diagnoses Not on filedocumented in this encounter Additional Health Concerns Assessment Noted Time PHQ-9 Depression Total Score: 5 01/27/20 24 10:54 AM EDT documented as of this encounter Care Teams Block Machine Operator Relationship Specialty Start Date End Date Adal Terrell MD [address] [place] [phone] PCP - General Internal Medicine 03/08/14 documented as of this encounter
--- OUTSIDE RECORDS SUMMARY | 2024-09-08 10:08 | XMS_ITS | Encounter Summary ---
Author Organization [employer] Address [address] [place] [address] Care Team Providers Care Leaf Coverer Name Role Phone Aadl Terrell MD Primary Care Provide r Encounter Details Date Type Department Care Team (Late st Contact Info) Description 09/01/2024 Orders Only GENERIC EXTERNAL DATA [...] Description 09/08/2024 2:15 PM EST Clinical Support [facility] [address] [place], [place] [phone] Marci Kennedy, YANET 505 [place], [place] [phone] 09/09/2024 3:00 PM EST Office Visit [facility] MEDICINE [address] [place] [address] Adal Terrell MD [address] [place] [address] documented as of this encounter Procedures Procedure Name Priority Date/Time Associated Diagnosis Comments VITAMIN B12/FOLATE, SERUM PANEL Routine 09/01/2024 3:07 PM EST TSH W/REFLEX TO FT4 Routine 09/01/2024 3 :07 PM EST METHYLMALONIC ACID Routine 09/01/2024 3: 07 PM EST IRON AND TOTAL IRON BINDING CAPACITY Routine 09/01/2024 3:07 PM EST TISSUE TRANSGLUTAMINASE AB, IGA Routine 09/01/2024 3:07 PM EST IMMUNOGLOBULINS, QUANTITATIVE, IGA, IGG, IGM Routine 09/01/2024 3:07 PM EST HOMOCYSTEINE Routine 09/01/2024 3:07 PM EST HEMOGLOBIN A1C Routine 09/01/2024 3:07 PM EST documented in this encounter Results * Methylmalonic Acid (09/01/2024 3:07 PM EST) Methylmalonic Acid 103 55 - 335 nmol/L [facility] Comment: Serum methylmalonic acid (MMA) [...] outcomes,such as neural tube defects and intrauterine growthrestriction.[employer] utilized Multi-Modal Decomposition(MMD) analysis to establish first and second trimester-specific MMA reference intervals in , as givenbelow:MMA, First trimester (<13 wks gestation): 58-167 nmol/LMMA, Second trimester (13-23 wks gestation):63-241 nmol/LThis test was developed and its analytical performancecharacteristics have been determined by [employer]. It has not been cleared or approved by theFDA. This assay has been validated pursuant to the CLIAregulations and is used for clinical purposes.THIS TEST WAS PERFORMED AT:[employer] [place], [place] ??[id number] HUGHES MD,PHD 09/01/2024 3:07 PM EST 09/01/2024 3:07 PM EST us Generic External Data Provider LAB BLOOD ORDERAB LES Final Result [facility] [address] [place] [phone] * Tissue Transglutaminase Antibody, IgA (09/01/2024 3:07 PM EST) Transglutaminase IgA <1.0 U/mL [facility] Comment:Value Interpretation ----- <15.0 Antibody not detected> or = 15.0 Antibody detectedTHIS TEST WAS PERFORMED AT:[facility] [place] [id number] RUCKER MD 09/01/2024 3:07 PM EST 09/01/2024 3:07 PM EST Generic External Data Provider LAB BLOOD ORDERAB LES Final Result Performing Organization Address [facility] de Phone Number [facility] [address] [place] [phone] * (ABNORMAL) Immunoglobulins, Quantitative, IgA, IgG, IgM (09/01/2024 3:07 PM EST) IMMUNOGLOBULIN G 1383 600 - 1640 mg/dL [facility] IMMUNOGLOBULIN A 581(A) 47 - 310 mg/dL [facility] Immunoglobulin M 115 50 - 300 mg/dL [facility] Comment:THIS TEST WAS PERFOR MED AT:[facility] [place] [phone] RUCKER MD 09/01/2024 3:07 PM EST 09/01/2024 3:07 PM EST [facility] External Data Provider LAB BLOOD ORDERAB LES Final Result Performing Organization Address [facility] de Phone Number [facility] [address] [place] [phone] * Homocysteine (09/01/2024 3:07 PM EST) Homocysteine 7.3 <10.4 umol/L [facility] Comment:Homocysteine is incr eased by functional deficiency offolate or vitamin B12. Testing for methylmalonic aciddifferentiates between these deficiencies. Other causesof increased homocysteine include renal failure, folateantagonists such as methotrexate and phenytoin, andexposure to nitrous oxide.josé miguel Oglesby al., [employer]. 1999;131(5):331-9.THIS TEST WAS PERFORMED AT:[facility] [place] [phone] RUCKER MD 09/01/2024 3:07 PM EST 09/01/2024 3:07 PM EST Generic External Data Provider LAB BLOOD ORDERAB LES Final Result Performing Organization Address [facility] Co de Phone Number [facility] [address] [place] [phone] * Hemoglobin A1c (09/01/2024 3:07 PM EST) Hemoglobin A1c 5.9 <6.0 % [facility] Comment:Hemoglobin A1C Refer ence Range Adults: 4.8 - 6.0 % Non diabetic: < 6.0 % Goal: < 7.0 %Additional Action Suggested: > 8.0 %Note: Hemoglobin A1c results are invalid for patients with abnormal amounts of HbF. Blood transfusions may impact the HbA1c concentration in the patient sample. Estimated Average Glucose 123 mg/dL [facility] Comment:eAG = Estimated ave rage glucose which is %A1C expressed asaverage glucose, using the formula of the J3R-QknatjcZiubaks Glucose study (ADAG), Diabetes Care, Vol.31,#8,Feb. 2007 09/01/2024 3:07 PM EST 09/01/2024 3:07 PM EST Generic External Data Provider LAB BLOOD ORDERAB LES Final Result Performing Organization Address [facility] Co de Phone Number [facility] [address] [place] [phone] * Vitamin B12 (Cobalamin) and Folate Panel, Serum (09/01/2024 3:07 PM EST) Vitamin B12 540 200 - 900 pg/mL [facility] Comment:NORMAL 200-900 PG/ML INDETERMINATE 160-199 PG/ML DEFICIENT < 160 PG/ML Folate 13.0 > or = 4.0 ng/mL [facility] Comment:Reference Values:> o r = 4.0 ng/mL< 4.0 ng/mL suggests folate deficiency Methotrexate, aminopterin and folinic acid(leucovorin) are chemotherapeutic agents whose molecularstructures are similar to folate; therefore, the Architectfolate assay cannot be used for patients using these drugs. 09/01/2024 3:07 PM EST 09/01/2024 3:07 PM EST Generic External Data Provider LAB BLOOD ORDERAB LES Final Result Performing Organization Address [facility] Co de Phone Number [facility] [address] [place] [phone] * TSH with Reflex to Free T4 (09/01/2024 3:07 PM EST) TSH reflex Free T4 1.74 0.32 - 4.0 uIU/mL [facility] 09/01/2024 3:07 PM EST 09/01/2024 3:07 PM EST Generic External Data Provider LAB BLOOD ORDERAB LES Final Result Performing Organization Address [facility] de Phone Number [facility] [address] [place] [phone] * Iron And Total Iron Binding Capacity (09/01/2024 3:07 PM EST) Iron 57 30 - 160 mcg/dL [facility] Total Iron Binding Capacity 353 228 - 428 mcg/dL [facility] Percent Iron Saturation 16 15 - 50 % [facility] Unsaturated Iron Binding 296 ug/dL [facility] 09/01/2024 3:07 PM EST 09/01/2024 3:07 PM EST Generic External Data Provider LAB BLOOD ORDERAB LES Final Result Performing Organization Address [facility] Co de Phone Number [facility] [address] [place] [phone] documented in this encounter Visit Diagnoses Not on filedocumented in this encounter Additional Health Concerns Assessment Noted Time PHQ-9 Depression Total Score: 5 01/27/20 24 10:54 AM EDT documented as of this encounter Care Teams Leaf Coverer Relationship Specialty Start Date End Date Adal Terrell MD [address] [place] [address] PCP - General Internal Medicine 03/08/14 documented as of this encounter
--- OUTSIDE RECORDS SUMMARY | 2024-09-08 10:08 | XMS_ITS | Encounter Summary ---
Author Organization [employer] Address [address] 7[address] [place] [address] Care Team Providers Care Project Manager Name Role Phone Adal Terrell MD Primary Care Provide r Reason for Visit * Reason Comments Med Refill Encounter Details Date Type Department Care Team (Late st Contact Info) Description 07/03/2023 Refill [facility] MED & PEDS [address] [place], [place] [phone] Adal Terrell MD [address] [place], [place] [phone] Low vitamin D level Social History Tobacco [...] Description 09/08/2024 2:15 PM EST Clinical Support [facility] MED & PEDS 505 [place] [address] Marci Kennedy, RN 505 [place] [address] 09/09/2024 3:00 PM EST Office Visit [facility] MEDICINE [address] [place] [address] Adal Terrell MD [address] [place] [address] documented as of this encounter Visit Diagnoses Diagnosis Low vitamin D level documented in this encounter Additional Health Concerns Assessment Noted Time PHQ-9 Depression Total Score: 0 09/10/19 23 11:00 AM EST documented as of this encounter Care Teams Project Manager Relationship Specialty Start Date End Date Adal Terrell MD [address] [place] [address] PCP - General Internal Medicine 03/08/14 documented as of this encounter
--- OUTSIDE RECORDS SUMMARY | 2024-09-08 10:08 | XMS_ITS | Encounter Summary ---
Author Organization [employer] Address [address] [facility] 7t [place] [address] Care Team Providers Care Gravel Roofer Name Role Phone Adal Terrell MD Primary Care Provide r Reason for Visit * Reason Onset Date Comments Appointment Request 10/29/2022 Encounter Details Date Type Department Care Team ([facility] st Contact Info) Description 10/29/2022 Telephone [facility] MEDICINE [address] [place] [address] Adal Terrell MD 230 [place] [address] Appointment Request Social History Tobacco Use Types [...] only with him. Please contact pt at [phone] documented in this encounter Plan of Treatment Upcoming Encounters Date Type Department Care Team (Late st Contact Info) Description 09/08/2024 2:15 PM EST Clinical Support [facility] CHC MED & PEDS [address] [place] [address] Marci Kennedy, RN 505 [place] [address] 09/09/2024 3:00 PM EST Office Visit [facility] MEDICINE 230 [place] [address] Adal Terrell MD [address] [place] [address] documented as of this encounter Visit Diagnoses Not on filedocumented in this encounter Additional Health Concerns Assessment Noted Time PHQ-9 Depression Total Score: 0 09/10/19 23 11:00 AM EST documented as of this encounter Care Teams Gravel Roofer Relationship Specialty Start Date End Date Adal Terrell MD [address] [place] [address] PCP - General Internal Medicine 03/08/14 documented as of this encounter
--- OUTSIDE RECORDS SUMMARY | 2024-09-08 10:08 | XMS_ITS | Encounter Summary ---
Author Organization [email or web address] Address [address] 7[address] [place] [address] Care Team Providers Care Rate Manager Name Role Phone Adal Terrell MD Primary Care Provide r Reason for Visit * Reason Onset Date Comments Med Refill 08/17/2024 Encounter Details Date Type Department Care Team ([facility] st Contact Info) Description 08/17/2024 Refill [facility] MEDICINE [address] [place], [place] [phone] Adal Terrell MD [address] [place] [address] Chronic right-sided low back pain with right-sided [...] Mon RN - 08/17/2024 1:37 PM EST PRINCIPAL INVESTIGATOR checked. Pt last picked up 28 day refill of oxycodone 07/19/24. Earliest fill date yesterday 08/16/24. Scheduled for GENETIC TECHNOLOGIST appt 09/08/24. Refill appropriate. Queued * Telephone Encounter - Earnest Garcia - 08/17/2024 11:31 AM EST TC from pt requesting medication refill. Medications needing refill: oxyCODONE (Roxicodone) 5 MG immediate release tablet To be sent to: [id number] - [place] - [address] [facility] documented in this encounter Plan of Treatment Upcoming Encounters Date Type Department Care Team (Late st Contact Info) Description 09/08/2024 2:15 PM EST Clinical Support [facility] CHC MED & PEDS [address] [facility] [place] [phone] Marci Kennedy, RN 505 [place] [address] 09/09/2024 3:00 PM EST Office Visit [facility] MEDICINE 230 [place] [address] Adal Terrell MD [address] [place] [address] documented as of this encounter Visit Diagnoses Diagnosis Chronic right-sided low back pain with right-sided sciatica documented in this encounter Additional Health Concerns Assessment Noted Time PHQ-9 Depression Total Score: 5 01/27/20 24 10:54 AM EDT documented as of this encounter Care Teams Rate Manager Relationship Specialty Start Date End Date Adal Terrell MD [address] [place] [address] PCP - General Internal Medicine 03/08/14 documented as of this encounter
--- OUTSIDE RECORDS SUMMARY | 2024-09-08 10:08 | XMS_ITS | Encounter Summary ---
Author Organization [employer] Address [address] 7[address] [place] [address] Care Team Providers Care Rn Case Manager Name Role Phone Adal Terrell MD Primary Care Provide r Reason for Visit * Reason Onset Date Comments Med Refill 07/23/2023 Encounter Details Date Type Department Care Team ([facility] st Contact Info) Description 07/23/2023 Refill [facility] MEDICINE [address] [place] [address] Adal Terrell MD 230 [place] [address] Chronic right-sided low back pain with right-sided [...] Description 09/08/2024 2:15 PM EST Clinical Support [facility] CHC MED & PEDS 505 [place] [address] Marci Kennedy, YANET 505 [place] [address] 09/09/2024 3:00 PM EST Office Visit [facility] MEDICINE [address] [place] [address] Adal Terrell MD [address] [place] [address] documented as of this encounter Visit Diagnoses Diagnosis 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
--- OUTSIDE RECORDS SUMMARY | 2024-09-08 10:08 | XMS_ITS | Encounter Summary ---
Author Organization [employer] Address [address] 7[address] [place] [address] Care Team Providers Care Geographic Area Intelligence Officer Name Role Phone Adal Terrell MD Primary Care Provide r Reason for Visit * Reason Onset Date Comments Results 08/13/2023 Encounter Details Date Type Department Care Team ([facility] Contact Info) Description 08/13/2023 Telephone [facility] MEDICINE 230 [place], [place] [phone] Adal Terrell MD [address] [place], [place] [phone] Results Social History Tobacco Use Types Packs/Day [...] Description 09/08/2024 2:15 PM EST Clinical Support [facility] CHC MED & PEDS 505 [place] [address] Marci Kennedy, RN 505 [place] [address] 09/09/2024 3:00 PM EST Office Visit [facility] MEDICINE 230 [place] [address] Aadl Terrell MD 230 [place] [address] documented as of this encounter Visit Diagnoses Not on filedocumented in this encounter Additional Health Concerns Assessment Noted Time PHQ-9 Depression Total Score: 0 09/10/19 23 11:00 AM EST documented as of this encounter Care Teams Geographic Area Intelligence Officer Relationship Specialty Start Date End Date Adal Terrell MD [address] [place] [id number] PCP - General Internal Medicine 03/08/14 documented as of this encounter
== END 2024-09-08 09:11 | disposition home or self-care (01) ==
LOC: HO.XRAY 09:10
PROVIDERS: PCP Internal Medicine; Visit Provider Internal Medicine
DX: R11.10 Vomiting, unspecified (principal)
CPT/HCPCS: 74221

== ENCOUNTER → 2024-09-08 10:00 | Outpatient (BNV) | payer MEDICAID, SELFPAY | PROVIDERS: PCP Internal Medicine; Visit Provider Physician Assistant Surgical | DX: K21.9 Gastro-esophageal reflux disease without esophagitis (principal); I86.4 Gastric varices | CPT/HCPCS: 74221 ==

== ENCOUNTER 2024-09-10 10:46 | Outpatient (REF) | payer MEDICAID, SELFPAY ==
--- OUTSIDE RECORDS SUMMARY | 2024-09-10 11:38 | XMS_ITS | Encounter Summary ---
Author Organization [employer] Address [address]t [place] [address] Care Team Providers Care Leather Goods Sales Representative Name Role Phone Adal Terrell MD Primary Care Provide r Reason for Visit * Reason Onset Date Comments Med Refill 02/09/2024 Encounter Details Date Type Department Care Team ([facility] Contact Info) Description 02/09/2024 Telephone [facility] MEDICINE [address] [place] [address] Adal Terrell MD 230 [place] [address] Med Refill Social History Tobacco Use Types [...] immediate release tablet To be sent to: [id number] [place], [place] - [address] [facility] documented in this encounter Plan of Treatment Upcoming Encounters Date Type Department Care Team ([facility] st Contact Info) Description 11/29/2024 2:00 PM EDT Telemedicine [facility] MED & PEDS 505 [place] [address] Marci Kennedy, YANET 505 [place] [address] documented as of this encounter Visit Diagnoses Not on filedocumented in this encounter Additional Health Concerns Assessment Noted Time PHQ-9 Depression Total Score: 5 01/27/20 24 10:54 AM EDT documented as of this encounter Care Teams Leather Goods Sales Representative Relationship Specialty Start Date End Date Adal Terrell MD [address] [place] [address] PCP - General Internal Medicine 03/08/14 documented as of this encounter
--- OUTSIDE RECORDS SUMMARY | 2024-09-10 11:38 | XMS_ITS | Encounter Summary ---
Author Organization [employer] Address [address] [place] [address] Care Team Providers Care Business Services Specialist Sales Name Role Phone Adal Terrell MD Primary Care Provide r Reason for Visit * Reason Onset Date Comments Nurse Triage 03/05/2024 Encounter Details Date Type Department Care Team ([facility] st Contact Info) Description 03/05/2024 Telephone [facility] MEDICINE 230 [place] [address] Adal Terrell MD 230 [place] [address] Nurse Triage Social History Tobacco Use Types [...] Care Team (Late st Contact Info) Description 11/29/2024 2:00 PM EDT Telemedicine [facility] MED & PEDS 505 [place] [address] Marci Kennedy, YANET 505 [place] [address] documented as of this encounter Visit Diagnoses Not on filedocumented in this encounter Additional Health Concerns Assessment Noted Time PHQ-9 Depression Total Score: 5 01/27/20 24 10:54 AM EDT documented as of this encounter Care Teams Business Services Specialist Sales Relationship Specialty Start Date End Date Adal Terrell MD [address] [place] [address] PCP - General Internal Medicine 03/08/14 documented as of this encounter
--- OUTSIDE RECORDS SUMMARY | 2024-09-10 11:38 | XMS_ITS | Encounter Summary ---
Author Organization [employer] Address [address] [place] [address] Care Team Providers Care Seafood Packer Name Role Phone Adal Terrell MD Primary Care Provide r Reason for Visit * Reason Onset Date Comments Chart Prep 09/01/2024 Encounter Details Date Type Department Care Team ([facility] st Contact Info) Description 09/01/2024 Telephone [facility] MEDICINE 230 [place], [place] [phone] Adal Terrell MD [address] [place] [address] Chart Prep Social History Tobacco Use Types [...] request in case pt has been [facility]by [facility] Core Screenings: Colonoscopy and PAP Overdue care gaps: Sbirt and Oral Health Chart prep for upcoming appt with Dr.Esparza lion. LB documented in this encounter Plan of Treatment Upcoming Encounters Date Type Department Care Team (Late st Contact Info) Description 11/29/2024 2:00 PM EDT Telemedicine [facility] MED & PEDS 505 [place] [address] Marci Kennedy RN 505 [place] [address] documented as of this encounter Visit Diagnoses Not on filedocumented in this encounter Additional Health Concerns Assessment Noted Time PHQ-9 Depression Total Score: 5 01/27/20 24 10:54 AM EDT documented as of this encounter Care Teams Seafood Packer Relationship Specialty Start Date End Date Adal Terrell MD [address] [place] [address] [place] [address] PCP - General Internal Medicine 03/08/14 documented as of this encounter
--- OUTSIDE RECORDS SUMMARY | 2024-09-10 11:38 | XMS_ITS | Encounter Summary ---
Author Organization [employer] Address [address] [place] [address] Care Team Providers Care Music Writer Name Role Phone Adal Terrell MD Primary Care Provide r Reason for Visit * Reason Onset Date Comments Letter for School/Work 12/12/2023 Appointment Request 12/12/2023 Encounter Details Date Type Department Care Team ([facility] Contact Info) Description 12/12/2023 Telephone [facility] MEDICINE [address] [place], [place] [phone] Adal Terrell MD 230 [place] [address] Letter for School/Work; Appointment Request Social History [...] Info) Description 11/29/2024 2:00 PM EDT Telemedicine [facility] MED & PEDS 505 [place] [address] Marci Kennedy, RN 505 [place] [address] documented as of this encounter Visit Diagnoses Not on filedocumented in this encounter Additional Health Concerns Assessment Noted Time PHQ-9 Depression Total Score: 0 09/10/19 23 11:00 AM EST documented as of this encounter Care Teams Music Writer Relationship Specialty Start Date End Date Adal Terrell MD [address] [place] [address] PCP - General Internal Medicine 03/08/14 documented as of this encounter
--- OUTSIDE RECORDS SUMMARY | 2024-09-10 11:38 | XMS_ITS | Encounter Summary ---
Author Organization [email or web address] Address [address] 7t [place] [address] Care Team Providers Care Sample Selector Name Role Phone Adal Terrell MD Primary [...] Upcoming Encounters Date Type Department Care Team ([facility] st Contact Info) Description 11/29/2024 2:00 PM EDT Telemedicine [facility] MED & PEDS [address] [place] [address] Marci Kennedy, YANET 505 [place] [address] documented as of this encounter Procedures Procedure Name Priority Date/Time Associated Diagnosis Comments FL ESOPHAGUS BARIUM SWALLOW WITH AIR Routine 09/08/2024 10:00 AM EST VITAMIN B12/FOLATE, SERUM PANEL Routine 09/01/2024 [...] EST documented in this encounter Results * FL Esophagus Barium Swallow w/Air (09/08/2024 10:00 AM EST) Anatomical Region Laterality Modality Head, Neck Radiographic Kasie ging 09/08/2024 10:0 0 AM EST Narrative 09/09/2024 9:04 AM EST ? [facility] ?[address] ?[place] [address] ? Fluoroscopy Report ? Signed ? Patient: Hall,Nisa ?MR#: [id number] ?? [id number] ? : 1975 ?Acct:[id number] ? Age/Sex: 48 / F ?ADM Date: 09/08/24 ? Loc: HO.XRAY ? Attending Dr: Vee Marques MD ? Ordering Physician: Vee Marques MD ?? Date of Service: 09/08/24 ?? Procedure(s): FL barium swallow with air ?? Accession Number(s): [id number] ? cc: Adal Alves MD; Vee Marques MD ? EXAMINATION: ?? XR FLUOROSCOPY UPPER GI WITH AIR ? CLINICAL INFORMATION: ?? Reflux. Chest discomfort. ? COMPARISON: ?? None ? TECHNIQUE: ?? Fluoroscopic air contrast upper GI examination was performed utilizing ?? standard techniques with thin and thick barium and effervescent ?? granules. Numerous spot images were obtained. ? FINDINGS: ?? Dual and single contrast images of the esophagus demonstrate normal ?? caliber, and contour. There is a mild granular appearance of the ?? esophageal mucosa, suggestive of esophagitis. No evidence of stricture, ?? mass, or ulcerations identified. Esophageal peristalsis was normal. ? A very small type I hiatal hernia is present. Gastroesophageal reflux ?? is seen up to the level the of the thoracic inlet. ? Dual contrast and single contrast images of the stomach demonstrated a ?? normal contour. Evaluation of the gastric mucosa is limited due to poor ?? coating of the barium. The area gastrica have a prominent appearance, ?? suggestive of gastritis. No masses or ulcerations are seen. Contrast ?? freely passed into the gastric antrum and duodenal bulb without delay. ? Single and air-contrast images of the duodenal bulb demonstrate no ?? abnormality. The duodenal sweep has a normal appearance, course, and ?? mucosal fold appearance. The imaged proximal jejunum has a normal fold ?? pattern and caliber. ? FLUOROSCOPY TIME: ?? 2 minutes 8 seconds ? Number of Spot Images: 9 ?? Number of Cine: 10 ? DOSE AREA PRODUCT: ?? 1488 uGy-m2 (microgray-meter squared) ? FL/FL barium swallow with air ?? IMPRESSION: ?? 1. Mild granular appearance of the esophageal mucosa, suggestive of ?? esophagitis. ?? 2. Very small type I hiatal hernia with significant show esophageal ?? reflux. ? 3. Prominent appearance of the areae gastricae, suggestive of gastritis. ? This procedure was performed by Anshul Adams PA-C, and supervised by ?? Dr. Allen ? Electronically signed by: ??Marcel lAlen MD ??09/09/2024 09:01 AM EST RP ? Dictated By: ?Anshul Adams ? Signed By: ?<Electronically signed by Anshul Adams in OV> ? 09/09/24 0901 ?<Electronically signed by Marcel Allen MD in OV> ? 09/09/24 0904 ? DD/ 1000 ? TD/TT: 09/08/24 1023 ? Ux Designer: ? Procedure Note Donevelynter, Image - 09/09/2024 [place] [address] Fluoroscopy Report Signed Patient: Bimal Hall#: [id number] : 1975Acct:[id number] Age/Sex: 48 / FADM Date: 09/08/24 Loc: HOWAGNERAY Attending Dr: Vee Marques MD Ordering Physician: Vee Marques MD Date of Service: 09/08/24 Procedure(s): FL barium swallow with air Accession Number(s): [id number] cc: Adal Alves MD; Vee Marques MD EXAMINATION: XR FLUOROSCOPY UPPER GI WITH AIR CLINICAL INFORMATION: Reflux. Chest discomfort. COMPARISON: None TECHNIQUE: Fluoroscopic air contrast upper GI examination was performed utilizing standard techniques with thin and thick barium and effervescent granules. Numerous spot images were obtained. FINDINGS: Dual and single contrast images of the esophagus demonstrate normal caliber, and contour. There is a mild granular appearance of the esophageal mucosa, suggestive of esophagitis. No evidence of stricture, mass, or ulcerations identified. Esophageal peristalsis was normal. A very small type I hiatal hernia is present. Gastroesophageal reflux is seen up to the level the of the thoracic inlet. Dual contrast and single contrast images of the stomach demonstrated a normal contour. Evaluation of the gastric mucosa is limited due to poor coating of the barium. The area gastrica have a prominent appearance, suggestive of gastritis. No masses or ulcerations are seen. Contrast freely passed into the gastric antrum and duodenal bulb without delay. Single and air-contrast images of the duodenal bulb demonstrate no abnormality. The duodenal sweep has a normal appearance, course, and mucosal fold appearance. The imaged proximal jejunum has a normal fold pattern and caliber. FLUOROSCOPY TIME: 2 minutes 8 seconds Number of Spot Images: 9 Number of Cine: 10 DOSE AREA PRODUCT: 1488 uGy-m2 (microgray-meter squared) FL/FL barium swallow with air IMPRESSION: 1. Mild granular appearance of the esophageal mucosa, suggestive of esophagitis. 2. Very small type I hiatal hernia with significant show esophageal reflux. 3. Prominent appearance of the areae gastricae, suggestive of gastritis. This procedure was performed by Anshul Adams PA-C, and supervised by Dr. Allen Electronically signed by: Marcel Allen MD 09/09/2024 09:01 AM EST Dictated By: Anshul Adams Signed By: <Electronically signed by Anshul Adams in OV> 09/09/24 0901 <Electronically signed by Marcel Allen MD in OV> 09/09/24 0904 DD/ 1000 TD/TT: 09/08/24 1023 Ux Designer: us [facility] Exter nal Provider IMG FLUOROSCOPY PROCEDURES Edited Result - Final * Methylmalonic Acid (09/01/2024 3:07 PM EST) Methylmalonic Acid 103 55 - 335 nmol/L [facility] Comment: Serum methylmalonic acid (MMA) [...] outcomes,such as neural tube defects and intrauterine growthrestriction.[employer] utilized Multi-Modal Decomposition(MMD) analysis to establish first and second trimester-specific MMA reference intervals in , as givenbelow:MMA, First trimester (<13 wks gestation): 58-167 nmol/LMMA, Second trimester (13-23 wks gestation):63-241 nmol/LThis test was developed and its analytical performancecharacteristics have been determined by [employer]. It has not been cleared or approved by theA. This assay has been validated pursuant to the CLIAregulations and is used for clinical purposes.THIS TEST WAS PERFORMED AT:[facility]/[id number] [place], [place] ??[id number] W. MASON,MD,PHD 09/01/2024 3:07 PM EST 09/01/2024 3:07 PM EST Generic External Data Provider LAB BLOOD ORDERAB LES Final Result [facility] [address] [place] [phone] * Tissue Transglutaminase Antibody, IgA (09/01/2024 3:07 PM EST) Transglutaminase IgA <1.0 U/mL [facility] Comment:Value Interpretation ----- <15.0 Antibody not detected> or = 15.0 Antibody detectedTHIS TEST WAS PERFORMED AT:[facility] [address] [id number] RUCKER MD 09/01/2024 3:07 PM EST 09/01/2024 3:07 PM EST Generic External Data Provider LAB BLOOD ORDERAB LES Final Result Performing Organization Address [facility] de Phone Number [facility] [address] [place] [phone] * (ABNORMAL) Immunoglobulins, Quantitative, IgA, IgG, IgM (09/01/2024 3:07 PM EST) IMMUNOGLOBULIN G 1383 600 - 1640 mg/dL [facility] IMMUNOGLOBULIN A 581(A) 47 - 310 mg/dL [facility] Immunoglobulin M 115 50 - 300 mg/dL [facility] Comment:THIS TEST WAS PERFOR MED AT:[facility] [address] [id number] RUCKER MD 09/01/2024 3:07 PM EST 09/01/2024 3:07 PM EST Generic External Data Provider LAB BLOOD ORDERAB LES Final Result Performing Organization Address [facility] Number [facility] [address] [place] [phone] * Homocysteine (09/01/2024 3:07 PM EST) Pathologist [facility] Homocysteine 7.3 <10.4 umol/L [facility] Comment:Homocysteine is incr eased by functional deficiency offolate or vitamin B12. Testing for methylmalonic aciddifferentiates between these deficiencies. Other causesof increased homocysteine include renal failure, folateantagonists such as methotrexate and phenytoin, andexposure to nitrous oxide.Mala To et al., [place] Burn Table Operator Med. 1999;131(5):331-9.THIS TEST WAS PERFORMED AT:[facility] [address] [id number] RUCKER MD 09/01/2024 3:07 PM EST 09/01/2024 3:07 PM EST Generic External Data Provider LAB BLOOD ORDERAB LES Final Result Performing Organization Address [facility] Co de Phone Number [facility] [address] [place] [phone] * Hemoglobin A1c (09/01/2024 3:07 PM EST) Hemoglobin A1c 5.9 <6.0 % [facility] Comment:Hemoglobin A1C Refer ence Range Adults: 4.8 - 6.0 % Non diabetic: < 6.0 % Goal: < 7.0 %Additional Action Suggested: > 8.0 %Note: Hemoglobin A1c results are invalid for patients with abnormal amounts of HbF. Blood transfusions may impact the HbA1c concentration in the patient sample. Estimated Average Glucose 123 mg/dL [facility] Comment:eAG = Estimated ave rage glucose which is %A1C expressed asaverage glucose, using the formula of the D2Z-LqvnldmMvhscaj Glucose study (ADAG), Diabetes Care, Vol.31,#8,Feb. 2007 09/01/2024 3:07 PM EST 09/01/2024 3:07 PM EST us [employer] External Data Provider LAB BLOOD ORDERAB LES Final Result [facility] [address] [place] [phone] * Vitamin B12 (Cobalamin) and Folate Panel, Serum (09/01/2024 3:07 PM EST) Vitamin B12 540 200 - 900 pg/mL [facility] Comment:NORMAL 200-900 PG/ML INDETERMINATE 160-199 PG/ML DEFICIENT < 160 PG/ML Folate 13.0 > or = 4.0 ng/mL [facility] Comment:Reference Values:> o r = 4.0 ng/mL< 4.0 ng/mL suggests folate deficiency Methotrexate, aminopterin and folinic acid(leucovorin) are chemotherapeutic agents whose molecularstructures are similar to folate; therefore, the Architectfolate assay cannot be used for patients using these drugs. 09/01/2024 3:07 PM EST 09/01/2024 3:07 PM EST us Generic External Data Provider LAB BLOOD ORDERAB LES Final Result Performing Organization Address [facility] Co de Phone Number [facility] [address] [place] [phone] * TSH with Reflex to Free T4 (09/01/2024 3:07 PM EST) TSH reflex Free T4 1.74 0.32 - 4.0 uIU/mL [facility] 09/01/2024 3:07 PM EST 09/01/2024 3:07 PM EST Generic External Data Provider LAB BLOOD ORDERAB LES Final Result Performing Organization Address [facility] Co de Phone Number [facility] [address] [place] [phone] * Iron And Total Iron Binding Capacity (09/01/2024 3:07 PM EST) Iron 57 30 - 160 mcg/dL [facility] Total Iron Binding Capacity 353 228 - 428 mcg/dL [facility] Percent Iron Saturation 16 15 - 50 % [facility] Unsaturated Iron Binding 296 ug/dL [facility] 09/01/2024 3:07 PM EST 09/01/2024 3:07 PM EST Generic External Data Provider LAB BLOOD ORDERAB LES Final Result Performing Organization Address [facility] Co de Phone Number [facility] [address] [place] [phone] documented in this encounter Visit Diagnoses Not on filedocumented in this encounter Additional Health Concerns Assessment Noted Time PHQ-9 Depression Total Score: 5 01/27/20 24 10:54 AM EDT documented as of this encounter Care Teams Sample Selector Relationship Specialty Start Date End Date Adal Terrell MD [address] [place] [phone] PCP - General Internal Medicine 03/08/14 documented as of this encounter
--- OUTSIDE RECORDS SUMMARY | 2024-09-10 11:38 | XMS_ITS | Encounter Summary ---
Author Organization [employer] Address [address] [place] [address] Care Team Providers Care Filling And Stapling Machine Operator Name Role Phone Adal Terrell MD Primary Care Provide r Encounter Details Date Type Department Care Team ([facility] st Contact Info) Description 02/05/2024 Orders Only [facility] MEDICINE [address] [place] [address] Adal Terrell MD [address] [place] [address] Social History Tobacco Use Types Packs/Day Years [...] Info) Description 11/29/2024 2:00 PM EDT Telemedicine [facility] MED & PEDS [address] [place] [address] Marci Kennedy, RN 505 [place] [address] documented as of this encounter Procedures Procedure [...] documented as of this encounter Care Teams Filling And Stapling Machine Operator Relationship Specialty Start Date End Date Adal Terrell MD [address] [place] [phone] PCP - General Internal Medicine 03/08/14 documented as of this encounter
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
--- OUTSIDE RECORDS SUMMARY | 2024-09-10 11:38 | XMS_ITS | Encounter Summary ---
Author Organization [employer] Address [address] [place] [address] Care Team Providers Care Load Mixer Name Role Phone Adal Terrell MD Primary Care Provide r Reason for Visit * Reason Onset Date Comments Med Refill 11/05/2022 Encounter Details Date Type Department Care Team (Late Contact Info) Description 11/05/2022 Telephone [facility] MEDICINE [address] [place] [phone] Adal Terrell MD [address] [place] [address] Med Refill Social History Tobacco Use Types [...] Department Care Team (Late Contact Info) Description 11/29/2024 2:00 PM EDT Telemedicine [facility] MED & PEDS [address] [place] [address] Marci Kennedy, RN [address] [place] [address] documented as of this encounter Visit Diagnoses Not on filedocumented in this encounter Additional Health Concerns Assessment Noted Time PHQ-9 Depression Total Score: 0 09/10/19 23 11:00 AM EST documented as of this encounter Care Teams Load Mixer Relationship Specialty Start Date End Date Adal Terrell MD [address] [place] [phone] PCP - General Internal Medicine 03/08/14 documented as of this encounter
--- OUTSIDE RECORDS SUMMARY | 2024-09-10 11:38 | XMS_ITS | Clinical Summary ---
Author Organization [facility] [address] it Address [address] [place] [phone] Care Team Providers Care Wedding Florist Name Role Phone Unavailable Primary Care Provider [...] Documents on File Type Date Recorded Patient Business Development Recruiter Expl anation Health Care Decision (hx) 07/06/2020 [...]
--- OUTSIDE RECORDS SUMMARY | 2024-09-10 11:38 | XMS_ITS | Encounter Summary ---
Author Organization [employer] Address [address] 7[address] [place] [address] Care Team Providers Care Speech Therapist Name Role Phone Adal Terrell MD Primary Care Provide r Reason for Visit * Reason Onset Date Comments Med Refill 01/31/2023 Encounter Details Date Type Department Care Team ([facility] st Contact Info) Description 01/31/2023 Telephone [facility] MEDICINE [address] [place] [address] Adal Terrell MD [address] [place] [address] Med Refill Social History Tobacco Use Types [...] Info) Description 11/29/2024 2:00 PM EDT Telemedicine [facility] MED & PEDS [address] [place] [address] Marci Kennedy, YANET 505 [place] [address] documented as of this encounter Visit Diagnoses Not on filedocumented in this encounter Additional Health Concerns Assessment Noted Time PHQ-9 Depression Total Score: 0 09/10/19 23 11:00 AM EST documented as of this encounter Care Teams Speech Therapist Relationship Specialty Start Date End Date Adal Terrell MD [address] [place] [address] PCP - General Internal Medicine 03/08/14 documented as of this encounter
--- OUTSIDE RECORDS SUMMARY | 2024-09-10 11:38 | XMS_ITS | Encounter Summary ---
Author Organization [employer] Address [address] [place] [address] Care Team Providers Care Measurement Advisor Name Role Phone Adal Terrell MD Primary Care Provide r Encounter Details Date Type Department Care Team (Late st Contact Info) Description 02/16/2024 Orders Only [facility] MEDICINE [address] [place], [place] [phone] Provider, MD Tong Social History Tobacco Use [...] Info) Description 11/29/2024 2:00 PM EDT Telemedicine [facility] MED & PEDS [address] [place] [address] Marci Kennedy, YANET 505 [place] [address] documented as of this encounter Procedures Procedure Name Priority Date/Time Associated Diagnosis Comments TISSUE PATHOLOGY Routine 08/07/2018 10:43 AM EST documented in this encounter Results * Tissue Pathology (08/07/2018 10:43 AM EST) Tissue us Historical Provider LAB PATHOLOGY ORDERABLES Final Result documented in this encounter Visit Diagnoses Not on filedocumented in this encounter Additional Health Concerns Assessment Noted Time PHQ-9 Depression Total Score: 5 01/27/20 24 10:54 AM EDT documented as of this encounter Care Teams Measurement Advisor Relationship Specialty Start Date End Date Adal Terrell MD [address] [place] [phone] PCP - General Internal Medicine 03/08/14 documented as of this encounter
--- OUTSIDE RECORDS SUMMARY | 2024-09-10 11:38 | XMS_ITS | Encounter Summary ---
Author Organization [employer] Address [address] [place] [address] Care Team Providers Care Dry Goods Clerk Name Role Phone Adal Terrell MD Primary Care Provide r Reason for Visit * Reason Comments Med Refill Encounter Details Date Type Department Care Team ([facility] st Contact Info) Description 08/31/2024 Refill [facility] MEDICINE [address] [place], [place] [phone] Adal Terrell MD [address] [place], [place] [phone] Social History Tobacco Use Types Packs/Day Years [...] Upcoming Encounters Date Type Department Care Team ([facility] st Contact Info) Description 11/29/2024 2:00 PM EDT Telemedicine [facility] MED & PEDS 505 [place] [address] Marci Kennedy, YANET [address] [place] [address] documented as of this encounter Visit Diagnoses Not on filedocumented in this encounter Additional Health Concerns Assessment Noted Time PHQ-9 Depression Total Score: 5 01/27/20 24 10:54 AM EDT documented as of this encounter Care Teams Dry Goods Clerk Relationship Specialty Start Date End Date Adal Terrell MD [address] [place] [address] PCP - General Internal Medicine 03/08/14 documented as of this encounter
--- OUTSIDE RECORDS SUMMARY | 2024-09-10 11:38 | XMS_ITS | Encounter Summary ---
Author Organization [employer] Address [address] [place] [address] Care Team Providers Care Sheetmetal Worker Name Role Phone Adal Terrell MD [...] Upcoming Encounters Date Type Department Care Team ([facility] st Contact Info) Description 11/29/2024 2:00 PM EDT Telemedicine [facility] MED & PEDS [address] [place] [address] Marci Kennedy, YANET [address] [place] [address] documented as of this encounter Visit Diagnoses Not on filedocumented in this encounter Additional Health Concerns Assessment Noted Time PHQ-9 Depression Total Score: 5 01/27/20 24 10:54 AM EDT documented as of this encounter Care Teams Sheetmetal Worker Relationship Specialty Start Date End Date Adal Terrell MD 230 [place] [address] PCP - General Internal Medicine 03/08/14 documented as of this encounter
--- OUTSIDE RECORDS SUMMARY | 2024-09-10 11:38 | XMS_ITS | Encounter Summary ---
Author Organization [employer] Address [address] [place] [address] Care Team Providers Care Parts Order And Stock Clerk Name Role Phone Adal Terrell MD Primary Care Provide r Reason for Visit * Reason Onset Date Comments Med Refill 03/08/2024 Encounter Details Date Type Department Care Team ([facility] Contact Info) Description 03/08/2024 Telephone [facility] 230 [place] [address] Adal Terrell MD 230 [place] [address] Med Refill Social History Tobacco Use Types [...] immediate release tablet To be sent to: [facility] documented in this encounter Plan of Treatment Upcoming Encounters Date Type Department Care Team (Late st Contact Info) Description 11/29/2024 2:00 PM EDT Telemedicine [facility] MED & PEDS 505 [place] [address] Marci Kennedy, RN 505 [place] [address] documented as of this encounter Visit Diagnoses Not on filedocumented in this encounter Additional Health Concerns Assessment Noted Time PHQ-9 Depression Total Score: 5 01/27/20 24 10:54 AM EDT documented as of this encounter Care Teams Parts Order And Stock Clerk Relationship Specialty Start Date End Date Adal Terrell MD [address] [place] [phone] PCP - General Internal Medicine 03/08/14 documented as of this encounter
--- OUTSIDE RECORDS SUMMARY | 2024-09-10 11:38 | XMS_ITS | Encounter Summary ---
Author Organization [employer] Address [address] [facility] [address] 7[address] [place] [address] Care Team Providers Care Door Tender Name Role Phone Adal Terrell MD Primary Care Provide r Reason for Visit * Reason Onset Date Comments Appointment Request 03/19/2023 Encounter Details Date Type Department Care Team ([facility] st Contact Info) Description 03/19/2023 Telephone [facility] MEDICINE [address] [place] [address] [phone] Adal Terrell MD 230 [place] [address] Appointment Request Social History Tobacco Use Types [...] EDT Tc from pt requesting to r/s RETOUCHING OPERATOR visit on 03/21/2023 @ 11:30 am. Pt states due to an emergency she has to fly out to [place] and won't be back in two weeks. Please contact pt at [phone] documented in this encounter Plan of Treatment Upcoming Encounters Date Type Department Care Team (Late st Contact Info) Description 11/29/2024 2:00 PM EDT Telemedicine [facility] MED & PEDS 505 [place] [address] Marci Kennedy, RN 505 [place] [address] documented as of this encounter Visit Diagnoses Not on filedocumented in this encounter Additional Health Concerns Assessment Noted Time PHQ-9 Depression Total Score: 0 09/10/19 23 11:00 AM EST documented as of this encounter Care Teams Door Tender Relationship Specialty Start Date End Date Adal Terrell MD [address] [place] [address] PCP - General Internal Medicine 03/08/14 documented as of this encounter
--- OUTSIDE RECORDS SUMMARY | 2024-09-10 11:38 | XMS_ITS | Encounter Summary ---
Author Organization [employer] Address [address] [facility] 7t [place] [address] Care Team Providers Care Chemical Laboratory Assistant Name Role Phone Adal Terrell MD Primary Care Provide r Reason for Visit * Reason Onset Date Comments Med Refill 07/23/2023 Encounter Details Date Type Department Care Team ([facility] Contact Info) Description 07/23/2023 Refill [facility] MEDICINE 230 [place] [address] Adal Terrell MD 230 [place] [address] Chronic right-sided low back pain with right-sided [...] [facility] MED & PEDS [address] [place] [address] Marci Kennedy, YANET 505 [place] [address] documented as of this encounter Visit Diagnoses Diagnosis Chronic right-sided low back pain with right-sided sciatica Sacroiliac joint dysfunction Nonallopathic lesion of sacral region, not elsewhere classified documented in this encounter Additional Health Concerns Assessment Noted Time PHQ-9 Depression Total Score: 0 09/10/19 23 11:00 AM EST documented as of this encounter Care Teams Chemical Laboratory Assistant Relationship Specialty Start Date End Date Adal Terrell MD [address] [place] [address] PCP - General Internal Medicine 03/08/14 documented as of this encounter
--- OUTSIDE RECORDS SUMMARY | 2024-09-10 11:38 | XMS_ITS | Encounter Summary ---
Author Organization [email or web address] Address [address] [facility] [address] 7t [place] [address] Care Team Providers Care Metal Work Duct Installer Name Role Phone Adal Terrell MD Primary Care Provide r Reason for Visit * Reason Comments Med Refill Encounter Details Date Type Department Care Team ([facility] st Contact Info) Description 07/23/[address] [facility] MEDICINE 230 [place], [place] [phone] Adal Terrell MD [address] [place], [place] [phone] Chronic right-sided low back pain with right-sided [...] Description 11/29/2024 2:00 PM EDT Telemedicine [facility] MED & PEDS 505 [place] [address] Marci Kennedy, RN 505 [place] [address] documented as of this encounter Visit Diagnoses Diagnosis Chronic right-sided low back pain with right-sided sciatica Sacroiliac joint dysfunction Nonallopathic lesion of sacral region, not elsewhere classified documented in this encounter Additional Health Concerns Assessment Noted Time PHQ-9 Depression Total Score: 0 09/10/19 23 11:00 AM EST documented as of this encounter Care Teams Metal Work Duct Installer Relationship Specialty Start Date End Date Adal Terrell MD [address] [place] [address] PCP - General Internal Medicine 03/08/14 documented as of this encounter
--- OUTSIDE RECORDS SUMMARY | 2024-09-10 11:38 | XMS_ITS | Encounter Summary ---
Author Organization [employer] Address [address] [facility] 7t [place] [address] Care Team Providers Care Colorer Machine Name Role Phone Adal Terrell MD Primary Care Provide r Reason for Visit * Reason Onset Date Comments Appointment Request 10/29/2022 Encounter Details Date Type Department Care Team ([facility] st Contact Info) Description 10/29/2022 Telephone [facility] MEDICINE [address] [place] [address] Adal Terrell MD 230 [place] [address] Appointment Request Social History Tobacco Use Types [...] only with him. Please contact pt at [phone] documented in this encounter Plan of Treatment Upcoming Encounters Date Type Department Care Team (Late st Contact Info) Description 11/29/2024 2:00 PM EDT Telemedicine [facility] MED & PEDS 505 [place] [address] Marci Kennedy, RN [address] [place] [address] documented as of this encounter Visit Diagnoses Not on filedocumented in this encounter Additional Health Concerns Assessment Noted Time PHQ-9 Depression Total Score: 0 09/10/19 11:00 AM EST documented as of this encounter Care Teams Colorer Machine Relationship Specialty Start Date End Date Adal Terrell MD [address] [place] [address] PCP - General Internal Medicine 03/08/14 documented as of this encounter
--- OUTSIDE RECORDS SUMMARY | 2024-09-10 11:38 | XMS_ITS | Encounter Summary ---
Author Organization [employer] Address [address] [facility] [address] 7t [place] [address] Care Team Providers Care Criminalist Technician Name Role Phone Adal Terrell MD Primary Care Provide r Reason for Visit * Reason Onset Date Comments Results 08/13/2023 Encounter Details Date Type Department Care Team ([facility] Contact Info) Description 08/13/2023 Telephone [facility] MEDICINE 230 [place], [place] [phone] Adal Terrell MD 230 [place], [place] [phone] Results Social History Tobacco Use Types Packs/Day [...] Info) Description 11/29/2024 2:00 PM EDT Telemedicine [facility] MED & PEDS 505 [place] [address] Marci Kennedy, YANET 505 [place] [address] documented as of this encounter Visit Diagnoses Not on filedocumented in this encounter Additional Health Concerns Assessment Noted Time PHQ-9 Depression Total Score: 0 09/10/19 23 11:00 AM EST documented as of this encounter Care Teams Criminalist Technician Relationship Specialty Start Date End Date Adal Terrell MD 230 [place] [address] PCP - General Internal Medicine 03/08/14 documented as of this encounter
--- OUTSIDE RECORDS SUMMARY | 2024-09-10 11:38 | XMS_ITS | Encounter Summary ---
Author Organization [employer] Address [address] [facility] 7t [place] [address] Care Team Providers Care Reaming Machine Operator For Plastic Name Role Phone Adal Terrell MD Primary Care Provide r Reason for Visit * Reason Onset Date Comments Med Refill 01/02/2023 Encounter Details Date Type Department Care Team ([facility] st Contact Info) Description 01/02/2023 Telephone [facility] MEDICINE [address] [place] [address] [phone] Adal Terrell MD 230 [place] [address] Med Refill Social History Tobacco Use Types [...] 11/29/2024 2:00 PM EDT Telemedicine [facility] MED & PEDS 505 [place] [address] Marci Kennedy, RN 505 [place] [address] documented as of this encounter Visit Diagnoses Not on filedocumented in this encounter Additional Health Concerns Assessment Noted Time PHQ-9 Depression Total Score: 0 09/10/19 23 11:00 AM EST documented as of this encounter Care Teams Reaming Machine Operator For Plastic Relationship Specialty Start Date End Date Adal Terrell MD 230 [place] [address] PCP - General Internal Medicine 03/08/14 documented as of this encounter
--- OUTSIDE RECORDS SUMMARY | 2024-09-10 11:38 | XMS_ITS | Encounter Summary ---
Author Organization [employer] Address [address] [facility] [address] 7t [place] [address] Care Team Providers Care Manager Radio Name Role Phone Adal Terrell MD Primary Care Provide r Reason for Visit * Reason Comments Med Refill Encounter Details Date Type Department Care Team ([facility] st Contact Info) Description 04/05/2024 Refill [facility] MEDICINE 230 [place] [address] Ronel Thomas, ANP 230 [place] [address] COVID-19 Social History Tobacco Use Types Packs/Day [...] Upcoming Encounters Date Type Department Care Team ([facility] st Contact Info) Description 11/29/2024 2:00 PM EDT Telemedicine [facility] MED & PEDS 505 [place] [address] Marci Kennedy, YANET 505 [place] [address] documented as of this encounter Visit Diagnoses Diagnosis COVID-19 documented in this encounter Additional Health Concerns Assessment Noted Time PHQ-9 Depression Total Score: 5 01/27/20 24 10:54 AM EDT documented as of this encounter Care Teams Manager Radio Relationship Specialty Start Date End Date Adal Terrell MD 230 [place] [address] PCP - General Internal Medicine 03/08/14 documented as of this encounter
--- OUTSIDE RECORDS SUMMARY | 2024-09-10 11:39 | XMS_ITS | Encounter Summary ---
Author Organization [employer] Address [address] [facility] [address] 7t [place] [address] Care Team Providers Care Seo Analyst Name Role Phone Adal Terrell MD Primary Care Provide r Encounter Details Date Type Department Care Team (Latest Contact Info) Description 09/09/2024 Travel Social History Tobacco Use Types Packs/Day [...] Upcoming Encounters Date Type Department Care Team ([facility] st Contact Info) Description 11/29/2024 2:00 PM EDT Telemedicine [facility] MED & PEDS 505 [place] [address] Marci Kennedy, YANET 505 [place] [address] documented as of this encounter Visit Diagnoses Not on filedocumented in this encounter Additional Health Concerns Assessment Noted Time PHQ-9 Depression Total Score: 5 01/27/20 24 10:54 AM EDT documented as of this encounter Care Teams Seo Analyst Relationship Specialty Start Date End Date Adal Terrell MD 230 [place] [address] PCP - General Internal Medicine 03/08/14 documented as of this encounter
--- OUTSIDE RECORDS SUMMARY | 2024-09-10 11:39 | XMS_ITS | Encounter Summary ---
Author Organization [employer] Address [address] [facility] [address] 7t [place] [address] Care Team Providers Care Safety Deposit Clerk Name Role Phone Adal Terrell MD Primary Care Provide r Reason for Visit * Reason Onset Date Comments Med Refill 08/17/2024 Encounter Details Date Type Department Care Team ([facility] st Contact Info) Description 08/17/2024 Refill [facility] MEDICINE 230 [place], [place] [phone] Adal Terrell MD 230 [place] [address] Chronic right-sided low back pain with right-sided [...] Mon RN - 08/17/2024 1:37 PM EST MICROSTRATEGY BI DEVELOPER checked. Pt last picked up 28 day refill of oxycodone 07/19/24. Earliest fill date yesterday 08/16/24. Scheduled for RECORDER HELPER SEISMOGRAPH appt 09/08/24. Refill appropriate. Queued * Telephone Encounter - Earnest Garcia - 08/17/2024 11:31 AM EST TC from pt requesting medication refill. Medications needing refill: oxyCODONE (Roxicodone) 5 MG immediate release tablet To be sent to: [id number] - [place] MATTHEWS - [address] [facility] documented in this encounter Plan of Treatment Upcoming Encounters Date Type Department Care Team (Late st Contact Info) Description 11/29/2024 2:00 PM EDT Telemedicine [facility] MED & PEDS 505 [place], [place] [phone] Marci Kennedy, YANET 505 [place] [address] documented as of this encounter Visit Diagnoses Diagnosis Chronic right-sided low back pain with right-sided sciatica documented in this encounter Additional Health Concerns Assessment Noted Time PHQ-9 Depression Total Score: 5 01/27/20 24 10:54 AM EDT documented as of this encounter Care Teams Safety Deposit Clerk Relationship Specialty Start Date End Date Adal Terrell MD [address] [place] [address] PCP - General Internal Medicine 03/08/14 documented as of this encounter
--- OUTSIDE RECORDS SUMMARY | 2024-09-10 11:39 | XMS_ITS | Encounter Summary ---
Author Organization [employer] Address [address] [place] [address] [place], [place] [address] Care Team Providers Care Outreach Team Member Name Role Phone Adal Terrell MD Primary Care Provide r Reason for Referral * Consultation (Routine) - Pending Review Specialty Diagnoses / Procedures Referred By Ruth chaidez Referred To Contact Obstetrics and Gynecology Diagnoses Preventative health care Adal Terrell MD [address] [place] [address] Phone: tel: fax: Referral ID Status Reason Start Date Expiration Date Visits Requested Visits Authorized [id number] Pending Review Specialty Services Required 09/09/2024 09/09/2025 1 1 * Neurology (Routine) - Authorized Specialty Diagnoses / Procedures Referred By Ruth chaidez Referred To Contact Diagnoses Pain in both wrists Procedures Nerve conduction test Adal Terrell MD 230 [place] [address] Phone: tel: fax: [address] Phone: tel: fax: Referral ID Status Reason Start Date Expiration Date V isits Requested Visits Authorized [id number] Authorized 09/09/2024 09/09/2025 1 1 Reason for Visit * Reason Comments Follow-up Forgetfulness; a lot of bilateral elbow pains that is causing a lot of weakness in her arms and in her hands, is worried because she is having a lot of discomfort carrying her school books or even a water bottle. Encounter Details Date Type Department Care Team (Late st Contact Info) Description 09/09/2024 3:00 PM EST Office Visit [facility] MEDICINE [address] [place] [address] Adal Terrell MD [address] [place] [address] YUNG (obstructive sleep apnea) (Primary Dx); Irritable bowel syndrome with diarrhea; Gastroesophageal reflux disease with esophagitis without hemorrhage; Moderate persistent asthma without complication; Pain in both wrists; Preventative health care Social History Tobacco Use Types Packs/Day Years [...] AM EDT documented as of this encounter Last Filed Vital Signs Vital Sign Reading Time Taken Comments Blood Pressure 120/85 09/09/2024 2:37 PM EST Pulse 105 09/09/2024 2:37 PM EST Temperature 36.1 ??C (96.9 ??F) 09/09/2024 2:37 PM ES T Respiratory Rate 20 09/09/2024 2:37 PM EST Oxygen Saturation 98% 09/09/2024 2:37 PM EST Inhaled Oxygen Concentration - - Weight 82.3 kg (181 lb 6.4 oz) 09/09/2024 2:37 P M EST Height 160 cm (5' 3 ) 09/09/2024 2:37 PM EST Body Mass Index 32.13 09/09/2024 2:37 PM EST documented in this encounter Progress Notes * Adal Mccarthy MD - 09/09/2024 3:00 PM EST SUBJECTIVE Nisa Hall is a 48 y.o. female who presents for Follow-up (Forgetfulness; a lot of bilateralelbow pains that is causing a lot of weakness in her arms and in her hands, is worried because she is having a lot of discomfort carrying her school books or even a water bottle. ). Pt with c/o new onset of bilateral wrist pain L > R with associated tingling and weakness, feelslike she drops everything Review of Systems Constitutional: Negative for fever. HENT: Negative for sore throat. Respiratory: Negative for cough and shortness of breath. Cardiovascular: Negative for chest pain. Gastrointestinal: Negative for abdominal pain. Neurological: Negative for headaches. Allergies Allergen Reactions Amitriptyline Unknown Cortisone Escitalopram Unknown Levofloxacin Unknown Morphine Unknown Nsaids Sertraline Unknown Sulfamethoxazole Unknown Topiramate Unknown Trimethoprim Unknown OBJECTIVE Vitals: 09/09/24 1437 BP: 120/85 BP Location: Left arm Patient Position: Sitting BP Cuff Size: Adult Pulse: 105 Resp: 20 Temp: 96.9 ??F (36.1 ??C) TempSrc: Temporal SpO2: 98% Weight: 181 lb 6.4 oz (82.3 kg) Height: 5' 3 (1.6 m) Physical Exam Vitals reviewed. Constitutional: Appearance: Normal appearance. HENT: Head: Normocephalic and atraumatic. Right Ear: External ear normal. Left Ear: External ear normal. Nose: Nose normal. Mouth/Throat: Mouth: Mucous membranes are moist. Eyes: Conjunctiva/sclera: Conjunctivae normal. Cardiovascular: Rate and Rhythm: Normal rate and regular rhythm. Pulmonary: Effort: Pulmonary effort is normal. Breath sounds: Normal breath sounds. Skin: General: Skin is warm. Neurological: General: No focal deficit present. Mental Status: She is alert. Mental status is at baseline. Assessment/Plan Problem List Items Addressed This Visit YUNG (obstructive sleep apnea) - Primary S/p Sleep Study Mild degree of sleep apnea. The AHI was 7/hr and oxygen james was 91%. patient was supposed to start APAP at [id number]. She was seen by Neurology/sleep 07/29/2024 who recommended to use Cpap and follow up with them in 3 months Relevant Orders Comprehensive Metabolic Panel Lipid Panel, Standard TSH with Reflex to Free T4 Irritable bowel syndrome with diarrhea Under the care of Gastroenterology, last seen 09/01/2024. She was recommended EGD/[place] Relevant Orders Comprehensive Metabolic Panel Lipid Panel, Standard TSH with Reflex to Free T4 Gastroesophageal reflux disease with esophagitis without hemorrhage Under the care of GI who ordered a Barium Swallow that showed: barium swallow with air IMPRESSION: 1. Mild granular appearance of the esophageal mucosa, suggestive of esophagitis. 2. Very small type I hiatal hernia with significant show esophageal reflux. 3. Prominent appearance of the areae gastricae, suggestive of gastritis. Pt has been scheduled for EGD Moderate persistent asthma without complication Patient is here for a follow up, no recent exacerbations She is on Singulair 10 mg po daily, Pro-Air 2 puffs QID prn. Flovent and Albuterol nebulizations PRN Pt evaluated in the past by [facility] Pulmonology, In May 2018 pt had a bronchoscopy that showed inflammation due to reflux. Currently doing well Pain in both wrists Pt with c/o new onset of bilateral wrist pain L > R with associated tingling and weakness, feelslike she drops everything Symptoms suggestive of CTS Plan: NCS Relevant Orders Nerve conduction test Preventative health care Mammogram: 09/24/2023 Normal Pap Smear: Pt had a partial Hysterectomy she still has a cervix, Pap 05/2018 was Normal. Referred for a repeat Colonoscopy: 2019 at [facility] Relevant Orders Referral to Gynecology documented in this encounter Miscellaneous Notes * Assessment & Plan Note - Adal Mccarthy MD - 09/09/2024 3:21 PM EST Associated Problem(s): Pain in both wrists Pt with c/o new onset of bilateral wrist pain L > R with associated tingling and weakness, feelslike she drops everything Symptoms suggestive of CTS Plan: NCS * Assessment & Plan Note - Adal Mccarthy MD - 09/09/2024 3:20 PM EST Associated Problem(s): Preventative health care Mammogram: 09/24/2023 Normal Pap Smear: Pt had a partial Hysterectomy she still has a cervix, Pap 05/2018 was Normal. Referred for a repeat Colonoscopy: 2019 at [facility] * Addendum Note - Adal Mccarthy MD - 09/09/2024 3:00 PM ESTAddended by: ADAL RAMON on: 09/09/2024 03:28 PM Modules accepted: Orders * Assessment & Plan Note - Adal Mccarthy MD - 09/09/2024 2:54 PM EST Associated Problem(s): Moderate persistent asthma without complication Patient is here for a follow up, no recent exacerbations She is on Singulair 10 mg po daily, Pro-Air 2 puffs QID prn. Flovent and Albuterol nebulizations PRN Pt evaluated in the past by [facility] Pulmonology, In May 2018 pt had a bronchoscopy that showed inflammation due to reflux. Currently doing well * Assessment & Plan Note - Adal Mccarthy MD - 09/09/2024 2:52 PM EST Associated Problem(s): Gastroesophageal reflux disease with esophagitis without hemorrhage Under the care of GI who ordered a Barium Swallow that showed: barium swallow with air IMPRESSION: 1. Mild granular appearance of the esophageal mucosa, suggestive of esophagitis. 2. Very small type I hiatal hernia with significant show esophageal reflux. 3. Prominent appearance of the areae gastricae, suggestive of gastritis. Pt has been scheduled for EGD * Assessment & Plan Note - Adal Mccarthy MD - 09/09/2024 2:49 PM EST Associated Problem(s): Irritable bowel syndrome with diarrhea Under the care of Gastroenterology, last seen 09/01/2024. She was recommended EGD/[place] * Assessment & Plan Note - Adal Mccarthy MD - 09/09/2024 2:47 PM EST Associated Problem(s): YUNG (obstructive sleep apnea) S/p Sleep Study Mild degree of sleep apnea. The AHI was 7/hr and oxygen james was 91%. patient was supposed to start APAP at [id number]. She was seen by Neurology/sleep 07/29/2024 who recommended to use Cpap and follow up with them in 3 months documented in this encounter Plan of Treatment Upcoming Encounters Date Type Department Care Team (Late st Contact Info) Description 11/29/2024 2:00 PM EDT Telemedicine [facility] MED & PEDS [address] [place] [address] Marci Kennedy, RN [address] [place] [address] Scheduled Orders Name Type Priority Associated Diagnoses Orde r Schedule Nerve conduction test Neurology Routine Pain in both wrists Ordered: 09/09/2024 Comprehensive Metabolic Panel Lab Routine YUNG (obstructive sleep apnea) Irritable bowel syndrome with diarrhea Ordered: 09/09/2024 Lipid Panel, Standard Lab Routine YUNG (obstructive sleep apnea) Irritable bowel syndrome with diarrhea Ordered: 09/09/2024 TSH with Reflex to Free T4 Lab Routine YUNG (obstructive sleep apnea) Irritable bowel syndrome with diarrhea Ordered: 09/09/2024 Scheduled Referrals Name Type Priority Associated Diagnoses Order Schedule Referral to Gynecology Outpatient Referral Routine Preventative health care Expected: 09/09/2024 (Approximate), Expires: 09/09/2025 documented as of this encounter Visit Diagnoses Diagnosis YUNG (obstructive sleep apnea)- Primary Obstructive sleep apnea (adult) (pediatric) Irritable bowel syndrome with diarrhea Irritable bowel syndrome Gastroesophageal reflux disease with esophagitis without hemorrhage Moderate persistent asthma without complication Pain in both wrists Preventative health care Routine general medical examination at a health care facility documented in this encounter Additional Health Concerns Assessment Noted Time PHQ-9 Depression Total Score: 5 01/27/20 24 10:54 AM EDT documented as of this encounter Care Teams Outreach Team Member Relationship Specialty Start Date End Date Adal Terrell MD [address] [place] [address] PCP - General Internal Medicine 03/08/14 documented as of this encounter
--- OUTSIDE RECORDS SUMMARY | 2024-09-10 11:39 | XMS_ITS | Clinical Summary ---
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 MD LAB BLOOD ORDERABLES Final Result [facility] [address] [place] [address], * Hm Colonoscopy (08/31/2018 3:43 PM EST) Adal Mccarthy MD HEALTH MAINTENANCE Fi nal Result * HPV mRNA E6/E7 (06/04/2018 12:00 AM EST) HPV mRNA E6/E7 Not Detected NOT DETECTED [facility] Comment: This test was performed using the APTIMA(R) HPV Assay ([employer] This assay detects E6/E7 viral messenger RNA (mRNA) from 14 high-risk HPV types (16,18,31,33,35,39,45,51, 52,56,58,59,66,68). For additional information please refer to: http://education.[employer]faq/GUG485r6 (This link is being provided for informational/ educational purposes only.) The analytical performance characteristics of this assay have been determined by [employer] [place], [place]. The modifications have not been cleared or approved by the FDA. This assay has been validated pursuant to the CLIA regulations and is used for clinical purposes. Test Performed by [facility], [address] [place] [address] Marcos Hughes M.D., Ph.D., Director of Laboratories , CLIA [id number] Please note: ??Effective 04/08/2016, HPV testing will be performed using [employer]'s APTIMA test which targets mRNA. Detecting mRNA instead of DNA, as in older methods, offers significant improvements in specificity. 06/04/2018 Lisa Goldstein CNM HISTORICAL/NON ORDERABLE LABS Final Result [facility] [address] from Last 3 Months or Most Recently Relevant to Health Maintenance Insurance [facility] C3 Care Teams Wire Basket Maker Relationship Specialty Start Date End Date Adal Terrell MD [address] [place] [address] PCP - General Internal Medicine 03/08/14
--- OUTSIDE RECORDS SUMMARY | 2024-09-10 11:39 | XMS_ITS | Clinical Summary ---
Author Organization [employer], Located Within [facility] Address [address] [place] [address] Care Team Providers Care Territory Manager General Sales Name Role Phone Unavailable Primary Care Provider [...]
--- OUTSIDE RECORDS SUMMARY | 2024-09-10 11:39 | XMS_ITS | Encounter Summary ---
Author Organization [employer] Address [address] 7t [place] [address] Care Team Providers Care Heel Reducer Name Role Phone Adal Terrell MD Primary Care Provide r Encounter Details Date Type Department Care Team (Latest Contact Info) Description 09/08/2024 Travel Social History Tobacco Use Types Packs/Day [...] Info) Description 11/29/2024 2:00 PM EDT Telemedicine [facility] P[facility]S [address] [place] [address] Marci Kennedy, YANET 505 [place] [address] documented as of this encounter Visit Diagnoses Not on filedocumented in this encounter Additional Health Concerns Assessment Noted Time PHQ-9 Depression Total Score: 5 01/27/20 24 10:54 AM EDT documented as of this encounter Care Teams Heel Reducer Relationship Specialty Start Date End Date Adal Terrell MD [address] [place] [address] PCP - General Internal Medicine 03/08/14 documented as of this encounter
--- OUTSIDE RECORDS SUMMARY | 2024-09-10 11:39 | XMS_ITS | Encounter Summary ---
Author Organization [employer] Address [address] 7t [place] [address] Care Team Providers Care Outreach Educator Name Role Phone Adal Terrell MD Primary Care Provide r Reason for Visit * Reason Onset Date Comments Med Refill 09/08/2024 Encounter Details Date Type Department Care Team ([facility] Contact Info) Description 09/08/2024 Refill [facility] MED & PEDS [address] [place] [address] Marci Kennedy RN [address] [place] [address] Chronic right-sided low back pain with right-sided [...] encounter Miscellaneous Notes * Telephone Encounter - Marci Kennedy RN - 09/08/2024 4:12 PM EST .What PACKING ROOM WORKER Tier would you like this patient to be? Tier 1 = HIGH RISK, Monthly PACKING ROOM WORKER visits Tier 2 = MODerate RISK, Q3 Month visits Tier 3 = LOW RISK = Q4-6 month visits documented in this encounter Plan of Treatment Upcoming Encounters Date Type Department Care Team ([facility] st Contact Info) Description 11/29/2024 2:00 PM EDT Telemedicine [facility] MED & PEDS [address] [place] [address] Marci Kennedy RN [address] [place] [address] documented as of this encounter Visit Diagnoses Diagnosis Chronic right-sided low back pain with right-sided sciatica documented in this encounter Additional Health Concerns Assessment Noted Time PHQ-9 Depression Total Score: 5 01/27/20 24 10:54 AM EDT documented as of this encounter Care Teams Outreach Educator Relationship Specialty Start Date End Date Adal Terrell MD [address] [place] [address] PCP - General Internal Medicine 03/08/14 documented as of this encounter
--- OUTSIDE RECORDS SUMMARY | 2024-09-10 11:39 | XMS_ITS | Encounter Summary ---
Author Organization [employer] Address [address] [place] [address] Care Team Providers Care Driver Utility Worker Name Role Phone Adal Terrell MD Primary Care Provide r Reason for Visit * Reason Comments controlled substance treatment Encounter Details Date Type Department Care Team (Latest Contact Info) Description 09/08/2024 2:15 PM EST Clinical Support [facility] MED & PEDS [address] [place] [address] Marci Kennedy, RN [address] [place] [address] Chronic right-sided low back pain with right-sided [...] AM EDT documented as of this encounter Progress Notes * Marci Kennedy RN - 09/08/2024 2:15 PM EST S: VESSEL MASTER NV. Current rx Oxycodone 5 mg q 12 hrs prn. States has been taking as prescribed, usually atbedtime. Reports no adverse reactions. Current pain level 10/10 located in the lower back, neck, arms, upper legs, hands. Patient states she usually takes medication at night. States med provides about 20-30% pain relief. Complaining of worsening pain. F/u with PCP tomorrow, patient will discuss itat the visit. Patient ia a non smoker, no use of tobacco products, denies illicit drug use. Very rare ETOH use, pt educated of the risks associated with the combination of ETOH and opioids, verbalized understanding. Last PCP visit 06/01/24. No questions/ concerns at this time. O: ENVIRONMENTAL SERVICES MANAGER verified. Pill count performed over thew phone. Pt states she has 12 pills at this time, 11 expected. Medication is not overused by patient. .BPI updated today. Pain severity score of (10), activity interference score of (10). Previous BPI completed (12/31/23) with pain severity score of (8), activity interference score of (9.5). Will update PCP with BPI scoring. Utox performed, positive for OXY, THC, as expected. .Fentanyl testing: negative Lot# [id number] Exp: 07-11-25 A: VESSEL MASTER Visit; Chronic opioid use related to pain. P: Patient to continue taking medication only as prescribed; Next VESSEL MASTER NV appointment 11/29/24 @ 2:pm.F/u with PCP 09/09/24. f/u sooner PRN. Patient verbalized understanding and agreed to plan. documented in this encounter Plan of Treatment Upcoming Encounters Date Type Department Care Team ([facility] st Contact Info) Description 11/29/2024 2:00 PM EDT Telemedicine [facility] MED & PEDS [address] [place] [address] Maric Kennedy RN [address] [place] [address] documented as of this encounter Procedures Procedure Name Priority Date/Time Associated Diagnosis Comments POCT JANET-14 URINE DRUG SCREEN Routine 09/08/2024 2:17 PM EST Chronic right-sided low back pain with right-sided sciatica documented in this encounter Results * POCT JANET-14 Urine Drug Screen (09/08/2024 2:17 PM EST) THC Positive Oxycodone Screen, Urine Positive Urine Urine specimen obtained by clean catch procedure / Unknown 09/08/2024 2:17 PM EST Narrative Marci Kennedy RN - 09/08/2024 2:17 PM EST Lot# [id number] Exp: 07-03-25 us Adal Mccarthy MD POINT OF CARE TEST EN TER/EDIT ORDERABLES Final Result documented in this encounter Visit Diagnoses Diagnosis Chronic right-sided low back pain with right-sided sciatica documented in this encounter Additional Health Concerns Assessment Noted Time PHQ-9 Depression Total Score: 5 01/27/20 24 10:54 AM EDT documented as of this encounter Care Teams Driver Utility Worker Relationship Specialty Start Date End Date Adal Terrell MD [address] [place] [address] PCP - General Internal Medicine 03/08/14 documented as of this encounter
--- OUTSIDE RECORDS SUMMARY | 2024-09-10 11:39 | XMS_ITS | Encounter Summary ---
Author Organization [employer] Address [address] 7t [place] [address] Care Team Providers Care Excavating Contractor Name Role Phone Adal Terrell MD Primary Care Provide r Reason for Visit * Reason Comments Med Refill Encounter Details Date Type Department Care Team (Late st Contact Info) Description 07/03/2023 Refill [facility] CH[facility] MED & PEDS [address] [place], [place] [phone] Adal Terrell MD [address] [place], [place] [phone] Low vitamin D level Social History Tobacco [...] [facility] [address] [place] [address] Marci Kennedy, YANET [address] [place] [address] documented as of this encounter Visit Diagnoses Diagnosis Low vitamin D level documented in this encounter Additional Health Concerns Assessment Noted Time PHQ-9 Depression Total Score: 0 09/10/19 23 11:00 AM EST documented as of this encounter Care Teams Excavating Contractor Relationship Specialty Start Date End Date Adal Terrell MD [address] [place] [address] PCP - General Internal Medicine 03/08/14 documented as of this encounter
[2024-09-10 12:10] LABS: Alanine Aminotransferase 21 U/L (0-31); Albumin Level 4.2 g/dL (3.5-5.0); Alkaline Phosphatase 96 U/L (39-117); Anion Gap 11 (12-20); Aspartate Amino Transferase 21 U/L (5-31); Bilirubin Total 0.3 mg/dL (0.0-1.0); Blood Urea Nitrogen 9 mg/dL (9-16); Calcium 9.2 mg/dL (8.4-10.2); Carbon Dioxide 27 mmol/L (22-29); Chloride 105 mmol/L (96-108); Cholesterol 155 mg/dL (<200); Estimated Glomerular Filt Rate > 60; Glucose Random 101 mg/dL (60-115); HDL Cholesterol 29 mg/dL (>40); LDL Cholesterol Calculated 108 mg/dL (<100); Potassium 4.2 mmol/L (3.3-5.1); Sodium 139 mmol/L (135-145); TSH reflex Free T4 2.55 uIU/mL (0.32-4.0); Total Protein 8.1 g/dL (6.5-8.0); Triglycerides 91 mg/dL (<150)
[2024-09-10 12:21] LABS: Vitamin B12 581 pg/mL (200-900)
== END 2024-09-10 10:47 | disposition home or self-care (01) ==
LOC: HO.LAB 10:46
PROVIDERS: Physician Assistant Medical; PCP Internal Medicine; Visit Provider Internal Medicine
DX: G47.33 Obstructive sleep apnea (adult) (pediatric) (principal); G47.9 Sleep disorder, unspecified; R53.83 Other fatigue; K58.0 Irritable bowel syndrome with diarrhea
CPT/HCPCS: 36415; 80053; 80061; 82607; 84443

== ENCOUNTER 2024-10-12 07:32 | Outpatient (REF) | payer MEDICAID, SELFPAY ==
--- OUTSIDE RECORDS SUMMARY | 2024-10-12 07:34 | XMS_ITS ---
[facility] Name [facility] Organization Unknown Encounters Encounter Type Encounter Reason Primary Diagnosis Location Date Ambulatory Contact with and (suspected) exposure to covid-19 [employer] 01/06/2022 Ambulatory [facility] 01/04/2022 Care Team Organization Name Specialty Phone Email Start Date End Da te [employer] 01/06/2022 01/06/2022 [employer] 01/06/2022
--- OUTSIDE RECORDS SUMMARY | 2024-10-12 07:34 | XMS_ITS | Clinical Summary ---
Author Organization [facility] Address [address] [place] [address] Care Team Providers Care Mgmt Specialist Name Role Phone Unavailable Primary Care Provider [...]
--- OUTSIDE RECORDS SUMMARY | 2024-10-12 07:34 | XMS_ITS | Clinical Summary ---
Author Organization [facility] it Address [address] [place] [address] Care Team Providers Care Spreader Operator Automatic Name Role Phone Unavailable Primary Care Provider [...] Documents on File Type Date Recorded Patient Credentialing Manager Expl anation Health Care Decision (hx) 07/06/2020 [...]
--- NOTE | 2024-10-12 07:38 | EMG_ITS ---
Bilateral median and ulnar motor and sensory studies were performed. Bilateral radial sensory studies were performed. Bilateral median and lateral antecubital brachial sensory studies were performed and paraspinals were tested with a needle. IMPRESSION: 1. Mild bilateral median neuropathy across carpal tunnel. 2. Mild left ulnar neuropathy across cubital tunnel. MD PATSY Sales/MARIA ESTHER / [phone]
== END 2024-10-12 07:33 | disposition home or self-care (01) ==
LOC: HO.NEURO 07:32
PROVIDERS: PCP Internal Medicine; Visit Provider Internal Medicine
DX: M25.531 Pain in right wrist (principal); M25.532 Pain in left wrist
CPT/HCPCS: 95886; 95913

== ENCOUNTER 2024-10-22 12:30 | Outpatient (RCR) | payer MEDICAID, SELFPAY ==
[2024-10-12 08:44] VITALS: BP 130/59; PULSE 91; RESP 14; TEMP 36.4
[2024-10-12] MEDS: Iron Sucrose Complex 200 MG/10 ML VIAL IVPUSH (08:58)
[2024-10-12] MEDS: 0.9 % Sodium Chloride Flush 10 ML SYRINGE 5 ML IVFLUSH (09:11)
[2024-10-22 12:11] VITALS: BP 114/55; PULSE 85; RESP 18; TEMP 36.6
[2024-10-22] MEDS: Iron Sucrose Complex 200 MG/10 ML VIAL IVPUSH (12:24)
== END 2024-10-22 12:36 | disposition home or self-care (01) ==
LOC: HO.INF 12:30
PROVIDERS: Visit Provider Internal Medicine
DX: D64.9 Anemia, unspecified (principal)
CPT/HCPCS: 96374; J1756

== ENCOUNTER 2024-11-02 05:57 | Day surgery (SDC) | payer MEDICAID, SELFPAY ==
--- OUTSIDE RECORDS SUMMARY | 2024-09-21 07:17 | XMS_ITS | Encounter Summary ---
Author Organization [employer] Address [address] [facility] 7t [place] [address] Care Team Providers Care Teachers Assistant Name Role Phone Adal Terrell MD Primary Care Provide r Reason for Visit * Reason Onset Date Comments Med Refill 01/02/2023 Encounter Details Date Type Department Care Team ([facility] st Contact Info) Description 01/02/2023 Telephone [facility] MEDICINE [address] [place] [phone] Adal Terrell MD [address] [place] [address] Med Refill Social History Tobacco Use Types [...] Info) Description 11/29/2024 2:00 PM EDT Telemedicine [facility] MED & PEDS [address] [place] [address] Marci Kennedy, RN [address] [place] [address] 12/14/2024 1:15 PM EDT Office Visit [facility] MEDICINE [address] [place] [address] Adal Terrell MD [address] [place] [address] documented as of this encounter Visit Diagnoses Not on filedocumented in this encounter Additional Health Concerns Assessment Noted Time PHQ-9 Depression Total Score: 0 09/10/19 23 11:00 AM EST documented as of this encounter Care Teams Teachers Assistant Relationship Specialty Start Date End Date Adal Terrell MD [address] [place] [address] PCP - General Internal Medicine 03/08/14 documented as of this encounter
--- OUTSIDE RECORDS SUMMARY | 2024-09-21 07:17 | XMS_ITS | Encounter Summary ---
Author Organization [employer] Address [address] [facility] [address] [place] [address] Care Team Providers Care Entry Level Sales Representative Name Role Phone Adal Terrell MD Primary Care Provide r Reason for Visit * Reason Onset Date Comments Med Refill 11/05/2022 Encounter Details Date Type Department Care Team (Late Contact Info) Description 11/05/2022 Telephone [facility] [address] [place] [address] Adal Terrell MD [address] [place] [address] Med Refill Social History Tobacco Use Types [...] Info) Description 11/29/2024 2:00 PM EDT Telemedicine [facility] MED & PEDS [address] [place] [address] Marci Kennedy, RN [address] [place] [address] 12/14/2024 1:15 PM EDT Office Visit [facility] [address] [place] [address] Adal Terrell MD [address] [place] [address] documented as of this encounter Visit Diagnoses Not on filedocumented in this encounter Additional Health Concerns Assessment Noted Time PHQ-9 Depression Total Score: 0 09/10/19 23 11:00 AM EST documented as of this encounter Care Teams Entry Level Sales Representative Relationship Specialty Start Date End Date Adal Terrell MD [address] [place] [address] PCP - General Internal Medicine 03/08/14 documented as of this encounter
--- OUTSIDE RECORDS SUMMARY | 2024-09-21 07:17 | XMS_ITS | Encounter Summary ---
Author Organization [employer] Address [address] [place] [address] Care Team Providers Care Phone Technician Name Role Phone Adal Terrell MD Primary Care Provide r Reason for Visit * Reason Onset Date Comments Appointment Request 03/19/2023 Encounter Details Date Type Department Care Team ([facility] st Contact Info) Description 03/19/2023 Telephone [facility] [address] [place] [phone] Adal Terrell MD [address] [place] [address] Appointment Request Social History Tobacco Use Types [...] EDT Tc from pt requesting to r/s RELIGION TEACHER visit on 03/21/2023 @ 11:30 am. Pt states due to an emergency she has to fly out to [place] and won't be back in two weeks. Please contact pt at [phone] documented in this encounter Plan of Treatment Upcoming Encounters Date Type Department Care Team (Late st Contact Info) Description 11/29/2024 2:00 PM EDT Telemedicine [facility] CH[facility] MED & PEDS [address] [place] [address] Marci Kennedy, RN [address] [place] [address] 12/14/2024 1:15 PM EDT Office Visit [facility] [address] [place] [address] Adal Terrell MD [address] [place] [address] documented as of this encounter Visit Diagnoses Not on filedocumented in this encounter Additional Health Concerns Assessment Noted Time PHQ-9 Depression Total Score: 0 09/10/19 11:00 AM EST documented as of this encounter Care Teams Phone Technician Relationship Specialty Start Date End Date Adal Terrell MD [address] [place] [address] PCP - General Internal Medicine 03/08/14 documented as of this encounter
--- OUTSIDE RECORDS SUMMARY | 2024-09-21 07:17 | XMS_ITS | Encounter Summary ---
Author Organization [employer] Address [address] [facility] [address] [facility] [address] [place] [address] Care Team Providers Care Sports Director Name Role Phone Adal Terrell MD Primary Care Provide r Encounter Details Date Type Department Care Team (Late st Contact Info) Description 02/16/2024 Orders Only [facility] MED[facility]INE [address] [place], [place] [phone] Provider, MD Tong Social History Tobacco Use [...] Info) Description 11/29/2024 2:00 PM EDT Telemedicine [facility] CHC MED & PEDS [address] [place] [address] Marci Kennedy, YANET [address] [place] [address] 12/14/2024 1:15 PM EDT Office Visit [facility] MEDICINE [address] [place] [address] Adal Terrell MD [address] [place] [address] documented as of this encounter Procedures Procedure [...] documented as of this encounter Care Teams Sports Director Relationship Specialty Start Date End Date Adal Terrell MD [address] [place] [address] PCP - General Internal Medicine 03/08/14 documented as of this encounter
--- OUTSIDE RECORDS SUMMARY | 2024-09-21 07:17 | XMS_ITS | Encounter Summary ---
Author Organization [employer] Address [address] 7[address] [place] [address] Care Team Providers Care Marble Ceiling Installer Name Role Phone Adal Terrell MD Primary Care Provide r Reason for Visit * Reason Onset Date Comments Nurse Triage 03/05/2024 Encounter Details Date Type Department Care Team ([facility] st Contact Info) Description 03/05/2024 Telephone [facility] MEDICINE [address] [place], [place] [phone] Adal Terrell MD [address] [place] [address] Nurse Triage Social History Tobacco Use Types [...] Info) Description 11/29/2024 2:00 PM EDT Telemedicine [facility] CHC MED & PEDS [address] [place] [address] Marci Kennedy, RN [address] [place] [address] 12/14/2024 1:15 PM EDT Office Visit [facility] MEDICINE [address] [place] [address] Adal Terrell MD [address] [place] [address] documented as of this encounter Visit Diagnoses Not on filedocumented in this encounter Additional Health Concerns Assessment Noted Time PHQ-9 Depression Total Score: 5 01/27/20 24 10:54 AM EDT documented as of this encounter Care Teams Marble Ceiling Installer Relationship Specialty Start Date End Date Adal Terrell MD [address] [place] [address] PCP - General Internal Medicine 03/08/14 documented as of this encounter
--- OUTSIDE RECORDS SUMMARY | 2024-09-21 07:18 | XMS_ITS | Clinical Summary ---
Author Organization [facility] it Address [address] [place] [address] Care Team Providers Care Lead Sharepoint Developer Name Role Phone Unavailable Primary Care Provider [...] Documents on File Type Date Recorded Patient Jumpbasting Canvas Baster Expl anation Health Care Decision (hx) 07/06/2020 [...]
--- OUTSIDE RECORDS SUMMARY | 2024-09-21 07:18 | XMS_ITS | Encounter Summary ---
Author Organization [employer] Address [address] 7t [place] [address] Care Team Providers Care Scholastic Aptitude Test Grader Name Role Phone Adal Terrell MD Primary [...] Info) Description 11/29/2024 2:00 PM EDT Telemedicine [facility] CHC MED & PEDS [address] [place], [place] [phone] Marci Kennedy, YANET 505 [place] [address] 12/14/2024 1:15 PM EDT Office Visit [facility] MEDICINE 230 [place] [address] Adal Terrell MD 230 [place] [address] documented as of this encounter Procedures Procedure [...] EST Narrative 09/09/2024 9:04 AM EST ? [facility] ?[address] ?[place] [address] ? Fluoroscopy Report ? Signed ? Patient: HallNisa ?MR#: [id number] ?? [id number] ? : 1975 ?Acct:[id number] ? Age/Sex: 48 / F ?ADM Date: 09/08/24 ? Loc: HO.XRAY ? Attending Dr: Vee Marques MD ? Ordering Physician: Vee Marques MD ?? Date of Service: 09/08/24 ?? Procedure(s): FL barium swallow with air ?? Accession Number(s): [id number] ? cc: Adal Alves MD; Vee Marques [...] DD/ 1000 ? TD/TT: 09/08/24 1023 ? Medical Receptionist Medical Assistant: ? Procedure Note Donjoseph, Image - 09/09/2024 [place] [address] Fluoroscopy Report Signed Patient: Nisa HallMR#: [id number] : 1975Acct:[id number] Age/Sex: 48 / FADM Date: 09/08/24 Loc: NURY Attending Dr: Vee Marques MD Ordering Physician: Vee Marques MD Date of Service: 09/08/24 Procedure(s): FL barium swallow with air Accession Number(s): [id number] cc: dAal Alves MD; Vee Marques MD EXAMINATION: XR [...] 09/09/24 0904 DD/ 1000 TD/TT: 09/08/24 1023 Medical Receptionist Medical Assistant: [facility] Exter nal Provider IMG FLUOROSCOPY PROCEDURES Edited Result - Final * Methylmalonic Acid (09/01/2024 3:07 PM EST) Methylmalonic Acid 103 55 - 335 nmol/L [facility] Comment: Serum methylmalonic acid (MMA) levels [...] outcomes,such as neural tube defects and intrauterine growthrestriction.[employer] utilized Multi-Modal Decomposition(MMD) analysis to establish first and second trimester-specific MMA reference intervals in , as givenbelow:MMA, First trimester (<13 wks gestation): 58-167 nmol/LMMA, Second trimester (13-23 wks gestation):63-241 nmol/LThis test was developed and its analytical performancecharacteristics have been determined by [facility]. It has not been cleared or approved by theFDA. This assay has been validated pursuant to the CLIAregulations and is used for clinical purposes.THIS TEST WAS PERFORMED AT:[facility] [place], [place] ??[id number] HUGHES MD,PHD 09/01/2024 3:07 PM EST 09/01/2024 3:07 PM EST Generic External Data Provider LAB BLOOD ORDERAB LES Final Result [facility] [address] [place] [phone] * Tissue Transglutaminase Antibody, IgA (09/01/2024 3:07 PM EST) Pathologist [facility] Transglutaminase IgA <1.0 U/mL [facility] Comment:Value Interpretation ----- <15.0 Antibody not detected> or = 15.0 Antibody detectedTHIS TEST WAS PERFORMED AT:[facility] [address] [id number] RUCKER MD 09/01/2024 3:07 PM EST 09/01/2024 3:07 PM EST Generic External Data Provider LAB BLOOD ORDERAB LES Final Result Performing Organization Address [facility] de Phone Number [facility] [address] [place] [phone] * (ABNORMAL) Immunoglobulins, Quantitative, IgA, IgG, IgM (09/01/2024 3:07 PM EST) Pathologist [facility] IMMUNOGLOBULIN G 1383 600 - 1640 mg/dL [facility] IMMUNOGLOBULIN A 581(A) 47 - 310 mg/dL [facility] Immunoglobulin M 115 50 - 300 mg/dL [facility] Comment:THIS TEST WAS PERFOR MED AT:[facility] [address] [id number] RUCKER MD 09/01/2024 3:07 PM EST 09/01/2024 3:07 PM EST Generic External Data Provider LAB BLOOD ORDERAB LES Final Result Performing Organization Address [facility] Phone Number [facility] [address] [place] [phone] * Homocysteine (09/01/2024 3:07 PM EST) Pathologist [facility] Homocysteine 7.3 <10.4 umol/L [facility] Comment:Homocysteine is incr eased by functional deficiency offolate or vitamin B12. Testing for methylmalonic aciddifferentiates between these deficiencies. Other causesof increased homocysteine include renal failure, folateantagonists such as methotrexate and phenytoin, andexposure to nitrous oxide.josé miguel Oglesby al., [place] [employer] Med. 1999;131(5):331-9.THIS TEST WAS PERFORMED AT:[facility] [address] [id number] RUCKER MD 09/01/2024 3:07 PM EST 09/01/2024 3:07 PM EST us Generic External Data Provider LAB BLOOD ORDERAB LES Final Result Performing Organization Address [facility] Co de Phone Number [facility] [address] [place] [phone] * Hemoglobin A1c (09/01/2024 3:07 PM EST) Hemoglobin A1c 5.9 <6.0 % [facility] Comment:Hemoglobin A1C Refer ence Range Adults: 4.8 - 6.0 % Non diabetic: < 6.0 % Goal: < 7.0 %Additional Action Suggested: > 8.0 %Note: Hemoglobin A1c results are invalid for patients with abnormal amounts of HbF. Blood transfusions may impact the HbA1c concentration in the patient sample. Estimated Average Glucose 123 mg/dL [facility] Comment:eAG = Estimated ave rage glucose which is %A1C expressed asaverage glucose, using the formula of the T5P-PeipitgPbjhfgr Glucose study (ADAG), Diabetes Care, Vol.31,#8,2007 09/01/2024 3:07 PM EST 09/01/2024 3:07 PM EST us Generic External Data Provider LAB BLOOD ORDERAB LES Final Result Performing Organization Address [facility] Co de Phone Number [facility] [address] [place] [phone] * Vitamin B12 (Cobalamin) and Folate Panel, Serum (09/01/2024 3:07 PM EST) Vitamin B12 540 200 - 900 pg/mL [facility] Comment:NORMAL 200-900 PG/ML INDETERMINATE 160-199 PG/ML DEFICIENT < 160 PG/ML Folate 13.0 > or = 4.0 ng/mL [facility] Comment:Reference Values:> o r = 4.0 ng/mL< 4.0 ng/mL suggests folate deficiency Methotrexate, aminopterin and folinic acid(leucovorin) are chemotherapeutic agents whose molecularstructures are similar to folate; therefore, the Architectfolate assay cannot be used for patients using these drugs. 09/01/2024 3:07 PM EST 09/01/2024 3:07 PM EST us Generic External Data Provider LAB BLOOD ORDERAB LES Final Result Performing Organization Address [facility] Co de Phone Number [facility] [address] [place] [phone] * TSH with Reflex to Free T4 (09/01/2024 3:07 PM EST) TSH reflex Free T4 1.74 0.32 - 4.0 uIU/mL [facility] 09/01/2024 3:07 PM EST 09/01/2024 3:07 PM EST Generic External Data Provider LAB BLOOD ORDERAB LES Final Result Performing Organization Address [facility] de Phone Number [facility] [address] [place] [phone] * Iron And Total Iron Binding Capacity (09/01/2024 3:07 PM EST) Iron 57 30 - 160 mcg/dL [facility] Total Iron Binding Capacity 353 228 - 428 mcg/dL [facility] Percent Iron Saturation 16 15 - 50 % [facility] Unsaturated Iron Binding 296 ug/dL [facility] 09/01/2024 3:07 PM EST 09/01/2024 3:07 PM EST Generic External Data Provider LAB BLOOD ORDERAB LES Final Result Performing Organization Address [facility] Phone Number [facility] [address] [place] [phone] documented in this encounter Visit Diagnoses Not on filedocumented in this encounter Additional Health Concerns Assessment Noted Time PHQ-9 Depression Total Score: 5 01/27/20 24 10:54 AM EDT documented as of this encounter Care Teams Scholastic Aptitude Test Grader Relationship Specialty Start Date End Date Adal Terrell MD [address] [place] [phone] PCP - General Internal Medicine 03/08/14 documented as of this encounter
--- OUTSIDE RECORDS SUMMARY | 2024-09-21 07:18 | XMS_ITS | Encounter Summary ---
Author Organization [employer] Address [address] [place] [address] Care Team Providers Care Zoo Veterinarian Name Role Phone Adal Terrell MD Primary Care Provide r Reason for Visit * Reason Onset Date Comments Results 08/13/2023 Encounter Details Date Type Department Care Team ([facility] Contact Info) Description 08/13/2023 Telephone [facility] MEDICINE [address] [place], [place] [phone] Adal Terrell MD [address] [place], [place] [phone] Results Social History Tobacco Use Types Packs/Day [...] Info) Description 11/29/2024 2:00 PM EDT Telemedicine [facility] CHC MED & PEDS [address] [place] [address] Marci Kennedy, RN 505 [place] [address] 12/14/2024 1:15 PM EDT Office Visit [facility] MEDICINE [address] [place] [address] Adal Terrell MD [address] [place] [address] documented as of this encounter Visit Diagnoses Not on filedocumented in this encounter Additional Health Concerns Assessment Noted Time PHQ-9 Depression Total Score: 0 09/10/19 23 11:00 AM EST documented as of this encounter Care Teams Zoo Veterinarian Relationship Specialty Start Date End Date Adal Terrell MD [address] [place] [address] PCP - General Internal Medicine 03/08/14 documented as of this encounter
--- OUTSIDE RECORDS SUMMARY | 2024-09-21 07:18 | XMS_ITS | Encounter Summary ---
Author Organization [employer] Address [address] [place] [address] Care Team Providers Care Grocery Buyer Name Role Phone Adal Terrell MD Primary Care Provide r Reason for Visit * Reason Onset Date Comments Letter for School/Work 12/12/2023 Appointment Request 12/12/2023 Encounter Details Date Type Department Care Team ([facility] Contact Info) Description 12/12/2023 Telephone [facility] MEDICINE 230 [place], [place] [phone] Adal Terrell MD 230 [place] [address] Letter for School/Work; Appointment Request Social History [...] Info) Description 11/29/2024 2:00 PM EDT Telemedicine [facility] MED & PEDS [address] [place] [address] Marci Kennedy, YANET [address] [place] [address] 12/14/2024 1:15 PM EDT Office Visit [facility] MEDICINE [address] [place] [address] Adal Terrell MD [address] [place] [address] documented as of this encounter Visit Diagnoses Not on filedocumented in this encounter Additional Health Concerns Assessment Noted Time PHQ-9 Depression Total Score: 0 09/10/19 23 11:00 AM EST documented as of this encounter Care Teams Grocery Buyer Relationship Specialty Start Date End Date Adal Terrell MD [address] [place] [address] PCP - General Internal Medicine 03/08/14 documented as of this encounter
--- OUTSIDE RECORDS SUMMARY | 2024-09-21 07:18 | XMS_ITS | Encounter Summary ---
Author Organization [employer] Address [address] 7t [place] [address] Care Team Providers Care Typewriter Ribbon Winder Name Role Phone Adal Terrell MD Primary Care Provide r Reason for Visit * Reason Onset Date Comments Appointment Request 10/29/2022 Encounter Details Date Type Department Care Team ([facility] st Contact Info) Description 10/29/2022 Telephone [facility] MEDICINE [address] [place] [phone] Adal Terrell MD [address] [place] [address] Appointment Request Social History Tobacco Use Types [...] only with him. Please contact pt at [phone] documented in this encounter Plan of Treatment Upcoming Encounters Date Type Department Care Team (Late st Contact Info) Description 11/29/2024 2:00 PM EDT Telemedicine [facility] CHC MED & PEDS [address] [place] [address] Marci Kennedy, RN [address] [place] [address] 12/14/2024 1:15 PM EDT Office Visit [facility] MEDICINE 230 [place] [address] Adal Terrell MD [address] [place] [address] documented as of this encounter Visit Diagnoses Not on filedocumented in this encounter Additional Health Concerns Assessment Noted Time PHQ-9 Depression Total Score: 0 09/10/19 23 11:00 AM EST documented as of this encounter Care Teams Typewriter Ribbon Winder Relationship Specialty Start Date End Date Adal Terrell MD [address] [place] [address] PCP - General Internal Medicine 03/08/14 documented as of this encounter
--- OUTSIDE RECORDS SUMMARY | 2024-09-21 07:18 | XMS_ITS | Encounter Summary ---
Author Organization [employer] Address [address] [place] [address] [place] [address] Care Team Providers Care Track Oiler Name Role Phone Adal Terrell MD Primary Care Provide r Reason for Referral * Consultation (Routine) - Pending Review Specialty Diagnoses / Procedures Referred By Ruth chaidez Referred To Contact Obstetrics and Gynecology Diagnoses Preventative health care Adal Terrell MD [address] [place] [phone] Phone: tel: fax: Referral ID Status Reason Start Date Expiration Date Visits Requested Visits Authorized [id number] Pending Review Specialty Services Required 09/09/2024 09/09/2025 1 1 * Neurology (Routine) - Authorized Specialty Diagnoses / Procedures Referred By Ruth chaidez Referred To Contact Diagnoses Pain in both wrists Procedures Nerve conduction test Adal Terrell MD 230 [place] [address] Phone: tel: fax: [address] Phone: tel: fax: Referral ID Status Reason Start Date Expiration Date V isits Requested Visits Authorized [id number] Authorized 09/09/2024 09/09/2025 1 1 Reason for [...] Description 09/09/2024 3:00 PM EST Office Visit [facility] MEDICINE [address] [place] [address] Adal Terrell MD [address] [place] [address] YUNG (obstructive sleep apnea) (Primary Dx); Irritable [...] patient was supposed to start APAP at [id number]. She was seen by Neurology/sleep 07/29/2024 who recommended to use Cpap and follow up with them in 3 months Relevant Orders Comprehensive Metabolic Panel Lipid Panel, Standard TSH with Reflex to Free T4 Irritable bowel syndrome with diarrhea Under the care of Gastroenterology, last seen 09/01/2024. She was recommended EGD/[place] Relevant Orders Comprehensive Metabolic Panel Lipid Panel, [...] PRN Pt evaluated in the past by [facility] Pulmonology, In May 2018 pt had [...] Referred for a repeat Colonoscopy: 2019 at [facility] Relevant Orders Referral to Gynecology documented [...] Referred for a repeat Colonoscopy: 2019 at [facility] * Addendum Note - Adal Mccarthy [...] PRN Pt evaluated in the past by [facility] Pulmonology, In May 2018 pt had [...] Gastroenterology, last seen 09/01/2024. She was recommended EGD/[place] * Assessment & Plan Note - Adal Mccarthy MD - 09/09/2024 2:47 PM EST Associated Problem(s): YUNG (obstructive sleep apnea) S/p Sleep Study Mild degree of sleep apnea. The AHI was 7/hr and oxygen james was 91%. patient was supposed to start APAP at 5-13ptB3J. She was seen by Neurology/sleep 07/29/2024 who recommended to use Cpap and follow up with them in 3 months documented in this encounter Plan of Treatment Upcoming Encounters Date Type Department Care Team (Late st Contact Info) Description 11/29/2024 2:00 PM EDT Telemedicine [facility] CHC MED & PEDS [address] [place] [address] Marci Kennedy, RN [address] [place], [place] 12/14/2024 1:15 PM EDT Office Visit [facility] MEDICINE 230 [place] [address] Adal Terrell MD [address] [place] [address] Scheduled Orders Name Type Priority Associated Diagnoses Orde r Schedule Nerve conduction test Neurology Routine Pain in both wrists Ordered: 09/09/2024 Scheduled Referrals Name Type Priority Associated Diagnoses Order Schedule Referral to Gynecology Outpatient Referral Routine Preventative health care Expected: 09/09/2024 (Approximate), Expires: 09/09/2025 documented as of this encounter Procedures Procedure Name Priority Date/Time Associated Diagnosis Comments TSH W/REFLEX TO FT4 Routine 09/10/2024 1 1:04 AM EST YUNG (obstructive sleep apnea) Irritable bowel syndrome with diarrhea LIPID PANEL, STANDARD Routine 09/10/2024 11:04 AM EST YUNG (obstructive sleep apnea) Irritable bowel syndrome with diarrhea COMPREHENSIVE METABOLIC PANEL Routine 09/10/2024 11:04 AM EST YUNG (obstructive sleep apnea) Irritable bowel syndrome with diarrhea documented in this encounter Results * TSH with Reflex to Free T4 (09/10/2024 11:04 AM EST) TSH reflex Free T4 2.55 0.32 - 4.0 uIU/mL [facility] Blood Venous blood specimen / Unknown 09/10/2024 11:04 AM EST 09/10/2024 11:04 AM EST us Adal Mccarthy MD LAB BLOOD ORDERABLES Final Result [facility] [address] [place] [phone] * (ABNORMAL) Lipid Panel, Standard (09/10/2024 11:04 AM EST) Triglycerides 91 <150 mg/dL [facility] Comment:Desirable Triglyceri de: less than 150 mg/dLBorderline High Triglyceride 150-199 mg/dLHigh Triglyceride: 200-499 mg/dLVery High Triglyceride: greater than or equal to 5OO mg/dL Cholesterol 155 <200 mg/dL [facility] Comment:Desirable Cholestero l: less than 200 mg/dLBorderline High Cholesterol: 200-239 mg/dLHigh Cholesterol: greater than 239 mg/dL LDL Cholesterol Calculated 108(H) <100 mg/dL [facility] Comment:Desirable LDL: less than 100 mg/dLNear Optimal/Above Optimal LDL: 110- 129 mg/dLBorderline High LDL: 130-159 mg/dLHigh LDL: 160-189 mg/dLVery High LDL: greater than or equal to 190 mg/dL HDL Cholesterol 29(L) >40 mg/dL [facility] Comment:Desirable HDL: great er than 40 mg/dL Note: This HDL assay may give artificially low results in patients with liver disease. Blood Venous blood specimen / Unknown 09/10/2024 11:04 AM EST 09/10/2024 11:04 AM EST us Adal Mccarthy MD LAB BLOOD ORDERABLES Final Result [facility] [address] [place] [phone] * (ABNORMAL) Comprehensive Metabolic Panel (09/10/2024 11:04 AM EST) Sodium 139 135 - 145 mmol/L [facility] Potassium 4.2 3.3 - 5.1 mmol/L [facility] Chloride 105 96 - 108 mmol/L [facility] Carbon Dioxide 27 22 - 29 mmol/L [facility] Anion Gap 11(L) 12 - 20 [facility] Urea Nitrogen (BUN) 9 9 - 16 mg/dL [facility] Creatinine, Serum 0.81 0.5 - 1.4 mg/dL [facility] Estimated Glomerular Filt Rate >60 [facility] Comment:Chronic Kidney Disea se: Estimated GFR < 60 mL/min/1.11q9Odamgy Kidney Disease: Estimated GFR < 15 mL/min/1.73m2 Glucose 101 60 - 115 mg/dL [facility] Calcium 9.2 8.4 - 10.2 mg/dL [facility] Bilirubin, Total 0.3 0.0 - 1.0 mg/dL [facility] Aspartate Amino Transferase 21 5 - 31 U/L [facility] Alanine Aminotransferase 21 0 - 31 U/L [facility] Total Protein 8.1(H) 6.5 - 8.0 g/dL [facility] Albumin Level 4.2 3.5 - 5.0 g/dL [facility] Alkaline Phosphatase 96 39 - 117 U/L [facility] Blood Venous blood specimen / Unknown 09/10/2024 11:04 AM EST 09/10/2024 11:04 AM EST us Adal Mccarthy MD LAB BLOOD ORDERABLES Final Result Performing Organization Address City/State/[facility] Co de Phone Number [facility] [address] [place] [phone] [phone] documented in this encounter Visit Diagnoses Diagnosis YUNG (obstructive [...] documented as of this encounter Care Teams Track Oiler Relationship Specialty Start Date End Date Adal Terrell MD [address] [place] [address] PCP - General Internal Medicine 03/08/14 documented as of this encounter
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
--- OUTSIDE RECORDS SUMMARY | 2024-09-21 07:18 | XMS_ITS | Encounter Summary ---
Author Organization [employer] Address [address] 7t [place] [address] Care Team Providers Care Flight Instructor Name Role Phone Adal Terrell MD Primary Care Provide r Reason for Visit * Reason Onset Date Comments Med Refill 09/08/2024 Encounter Details Date Type Department Care Team ([facility] Contact Info) Description 09/08/2024 Refill [facility] MED & PEDS [address] [place] [address] Marci Kennedy RN 505 [place] [address] Chronic right-sided low back pain with right-sided [...] RN - 09/08/2024 4:12 PM EST .What BUTTON BRADDER Tier would you like this patient to be? Tier 1 = HIGH RISK, Monthly BUTTON BRADDER visits Tier 2 = MODerate RISK, Q3 Month visits Tier 3 = LOW RISK = Q4-6 month visits documented in this encounter Plan of Treatment Upcoming Encounters Date Type Department Care Team (Late st Contact Info) Description 11/29/2024 2:00 PM EDT Telemedicine [facility] CHC MED & PEDS [address] [place] [address] Marci Kennedy RN 505 [place] [address] 12/14/2024 1:15 PM EDT Office Visit [facility] MEDICINE [address] [place] [address] Adal Terrell MD 230 [place] [address] documented as of this encounter Visit Diagnoses Diagnosis Chronic right-sided low back pain with right-sided sciatica documented in this encounter Additional Health Concerns Assessment Noted Time PHQ-9 Depression Total Score: 5 07/02/20 24 10:54 AM EDT documented as of this encounter Care Teams Flight Instructor Relationship Specialty Start Date End Date Adal Terrell MD [address] [place] [address] PCP - General Internal Medicine 03/08/14 documented as of this encounter
--- OUTSIDE RECORDS SUMMARY | 2024-09-21 07:18 | XMS_ITS | Encounter Summary ---
Author Organization [employer] Address [address] 7t [place] [address] Care Team Providers Care Driver Engineer Name Role Phone Adal Terrell MD Primary Care Provide r Reason for Visit * Reason Comments controlled substance treatment Encounter Details Date Type Department Care Team (Latest Contact Info) Description 09/08/2024 2:15 PM EST Clinical Support [facility] CH[facility] MED & PEDS [address] [place] [address] Marci Kennedy, RN [address] [place] [address] Chronic right-sided low back pain with right-sided [...] RN - 09/08/2024 2:15 PM EST S: RECYCLABLE MATERIALS SORTER NV. Current rx Oxycodone 5 mg q [...] No questions/ concerns at this time. O: TOBACCO CLASSER verified. Pill count performed over thew phone. [...] THC, as expected. .Fentanyl testing: negative Lot# [id number] Exp: 07-11-25 A: RECYCLABLE MATERIALS SORTER Visit; Chronic opioid use related to pain. P: Patient to continue taking medication only as prescribed; Next RECYCLABLE MATERIALS SORTER NV appointment 11/29/24 @ 2:pm.F/u with PCP 09/09/24. f/u sooner PRN. Patient verbalized understanding and agreed to plan. documented in this encounter Plan of Treatment Upcoming Encounters Date Type Department Care Team (Late st Contact Info) Description 11/29/2024 2:00 PM EDT Telemedicine [facility] CHC MED & PEDS [address] [place] [address] Marci Kennedy RN [address] [place] [address] 12/14/2024 1:15 PM EDT Office Visit [facility] MEDICINE [address] [place] [address] Adal Terrell MD 230 [place], [place] [phone] documented as of this encounter Procedures Procedure [...] RN - 09/08/2024 2:17 PM EST Lot# [id number] Exp: 07-03-25 us Adal Mccarthy MD POINT OF CARE TEST EN TER/EDIT ORDERABLES Final Result documented in this encounter Visit Diagnoses Diagnosis Chronic right-sided low back pain with right-sided sciatica documented in this encounter Additional Health Concerns Assessment Noted Time PHQ-9 Depression Total Score: 5 01/27/20 24 10:54 AM EDT documented as of this encounter Care Teams Driver Engineer Relationship Specialty Start Date End Date Adal Terrell MD [address] [place] [address] PCP - General Internal Medicine 03/08/14 documented as of this encounter
--- OUTSIDE RECORDS SUMMARY | 2024-09-21 07:18 | XMS_ITS | Encounter Summary ---
Author Organization [employer] Address [address] 7t [place] [address] Care Team Providers Care Space And Missile Operations Spacelift Name Role Phone Adal Terrell MD Primary [...] 11/29/2024 2:00 PM EDT Telemedicine [facility] CHC MED & PEDS 505 [place] [address] Marci Kennedy, YANET 505 [place] [address] 12/14/2024 1:15 PM EDT Office Visit [facility] MEDICINE 230 [place] [address] Adal Terrell MD [address] [place] [address] documented as of this encounter Visit Diagnoses Not on filedocumented in this encounter Additional Health Concerns Assessment Noted Time PHQ-9 Depression Total Score: 5 01/27/20 24 10:54 AM EDT documented as of this encounter Care Teams Space And Missile Operations Spacelift Relationship Specialty Start Date End Date Adal Terrell MD 230 [place] [address] PCP - General Internal Medicine 03/08/14 documented as of this encounter
--- OUTSIDE RECORDS SUMMARY | 2024-09-21 07:18 | XMS_ITS | Encounter Summary ---
Author Organization [employer] Address [address] 7t [place] [address] Care Team Providers Care Breast Trimmer Name Role Phone Adal Terrell MD Primary Care Provide r Reason for Visit * Reason Comments Med Refill Encounter Details Date Type Department Care Team ([facility] st Contact Info) Description 08/31/2024 Refill [facility] MEDICINE 230 [place], [place] [phone] Adal Terrell MD 230 [place], [place] [phone] Social History Tobacco Use Types Packs/Day Years [...] [facility] MED & PEDS 505 [place] [address] Marci Kennedy, YANET 505 [place] [address] 12/14/2024 1:15 PM EDT Office Visit [facility] MEDICINE 230 [place] [address] Adal Terrell MD [address] [place] [address] documented as of this encounter Visit Diagnoses Not on filedocumented in this encounter Additional Health Concerns Assessment Noted Time PHQ-9 Depression Total Score: 5 01/27/20 24 10:54 AM EDT documented as of this encounter Care Teams Breast Trimmer Relationship Specialty Start Date End Date Adal Terrell MD [address] [place] [address] PCP - General Internal Medicine 03/08/14 documented as of this encounter
--- OUTSIDE RECORDS SUMMARY | 2024-09-21 07:18 | XMS_ITS | Encounter Summary ---
Author Organization [employer] Address [address] 7t [place] [address] Care Team Providers Care Medical Territory Manager Name Role Phone Adal Terrell MD Primary Care Provide r Reason for Visit * Reason Onset Date Comments Chart Prep 09/01/2024 Encounter Details Date Type Department Care Team ([facility] st Contact Info) Description 09/01/2024 Telephone [facility] MEDICINE [address] [place], [place] [phone] Adal Terrell MD [address] [place] [address] Chart Prep Social History Tobacco Use Types [...] request in case pt has [facility] Screenings: Colonoscopy and PAP Overdue care gaps: Sbirt and Oral Health Chart prep for upcoming appt with Dr.Esparza lion. LB documented in this encounter Plan of Treatment Upcoming Encounters Date Type Department Care Team (Late st Contact Info) Description 11/29/2024 2:00 PM EDT Telemedicine [facility] CHC MED & PEDS [address] [place] [address] Marci Kennedy RN 505 [place] [address] 12/14/2024 1:15 PM EDT Office Visit [facility] MEDICINE [address] [place] [address] Adal Terrell MD [address] [place] [address] documented as of this encounter Visit Diagnoses Not on filedocumented in this encounter Additional Health Concerns Assessment Noted Time PHQ-9 Depression Total Score: 5 01/27/20 24 10:54 AM EDT documented as of this encounter Care Teams Medical Territory Manager Relationship Specialty Start Date End Date Adal Terrell MD [address] [place] [address] PCP - General Internal Medicine 03/08/14 documented as of this encounter
--- OUTSIDE RECORDS SUMMARY | 2024-09-21 07:18 | XMS_ITS | Encounter Summary ---
Author Organization [employer] Address [address] 7[address] [place] [address] Care Team Providers Care Batch Unloader Name Role Phone Adal Terrell MD Primary [...] Info) Description 11/29/2024 2:00 PM EDT Telemedicine [facility] CHC MED & PEDS 505 [place] [address] Marci Kennedy, YANET [address] [place] [address] 12/14/2024 1:15 PM EDT Office Visit [facility] MEDICINE 230 [place] [address] Adal Terrell MD 230 [place] [address] documented as of this encounter Visit Diagnoses Not on filedocumented in this encounter Additional Health Concerns Assessment Noted Time PHQ-9 Depression Total Score: 5 01/27/20 24 10:54 AM EDT documented as of this encounter Care Teams Batch Unloader Relationship Specialty Start Date End Date Adal Terrell MD 230 [place] [address] PCP - General Internal Medicine 03/08/14 documented as of this encounter
--- OUTSIDE RECORDS SUMMARY | 2024-09-21 07:18 | XMS_ITS | Encounter Summary ---
Author Organization [employer] Address [address] 7t [place] [address] Care Team Providers Care Meals On Wheels Driver Name Role Phone Adal Terrell MD Primary [...] Info) Description 11/29/2024 2:00 PM EDT Telemedicine [facility] CHC MED & PEDS 505 [place] [address] Marci Kennedy, YANET 505 [place] [address] 12/14/2024 1:15 PM EDT Office Visit [facility] MEDICINE 230 [place] [address] Adal Terrell MD 230 [place] [address] documented as of this encounter Visit Diagnoses Not on filedocumented in this encounter Additional Health Concerns Assessment Noted Time PHQ-9 Depression Total Score: 5 01/27/20 24 10:54 AM EDT documented as of this encounter Care Teams Meals On Wheels Driver Relationship Specialty Start Date End Date Adal Terrell MD 230 [place] [address] PCP - General Internal Medicine 03/08/14 documented as of this encounter
--- OUTSIDE RECORDS SUMMARY | 2024-09-21 07:18 | XMS_ITS | Encounter Summary ---
Author Organization [employer] Address [address] 7[address] [place] [address] Care Team Providers Care International Logistics Coordinator Name Role Phone Adal Terrell MD Primary Care Provide r Reason for Visit * Reason Onset Date Comments Med Refill 02/09/2024 Encounter Details Date Type Department Care Team ([facility] Contact Info) Description 02/09/2024 Telephone [facility] MEDICINE [address] [place] [address] Adal Terrell MD 230 [place] [address] Med Refill Social History Tobacco Use Types [...] immediate release tablet To be sent to: [id number] [place], [place] [address] [facility] documented in this encounter Plan of Treatment Upcoming Encounters Date Type Department Care Team ([facility] st Contact Info) Description 11/29/2024 2:00 PM EDT Telemedicine [facility] CHC MED & PEDS [address] [place] [address] Marci Kennedy, YANET 505 [place] [address] 12/14/2024 1:15 PM EDT Office Visit [facility] MEDICINE 230 [place] [address] Adal Terrell MD [address] [place] [address] documented as of this encounter Visit Diagnoses Not on filedocumented in this encounter Additional Health Concerns Assessment Noted Time PHQ-9 Depression Total Score: 5 01/27/20 24 10:54 AM EDT documented as of this encounter Care Teams International Logistics Coordinator Relationship Specialty Start Date End Date Adal Terrell MD [address] [place] [address] PCP - General Internal Medicine 03/08/14 documented as of this encounter
--- OUTSIDE RECORDS SUMMARY | 2024-09-21 07:18 | XMS_ITS | Encounter Summary ---
Author Organization [employer] Address [address] [place] [address] Care Team Providers Care Medical Research Scientist Name Role Phone Adal Terrell MD Primary Care Provide r Reason for Visit * Reason Comments Med Refill Encounter Details Date Type Department Care Team ([facility] st Contact Info) Description 04/05/2024 Refill [facility] MEDICINE 230 [place] [address] Ronel Thomas, ANP 230 [place] [address] COVID-19 Social History Tobacco Use Types Packs/Day [...] Info) Description 11/29/2024 2:00 PM EDT Telemedicine [facility] MED & PEDS 505 [place] [address] Marci Kennedy, YANET 505 [place] [address] 12/14/2024 1:15 PM EDT Office Visit [facility] MEDICINE 230 [place] [address] Adal Terrell MD 230 [place] [address] documented as of this encounter Visit Diagnoses Diagnosis COVID-19 documented in this encounter Additional Health Concerns Assessment Noted Time PHQ-9 Depression Total Score: 5 01/27/20 24 10:54 AM EDT documented as of this encounter Care Teams Medical Research Scientist Relationship Specialty Start Date End Date Adal Terrell MD [address] [place] [address] PCP - General Internal Medicine 03/08/14 documented as of this encounter
--- OUTSIDE RECORDS SUMMARY | 2024-09-21 07:18 | XMS_ITS | Encounter Summary ---
Author Organization [employer] Address [address] 7t [place] [address] Care Team Providers Care Health Promotion Specialist Name Role Phone Adal Terrell MD Primary Care Provide r Reason for Visit * Reason Onset Date Comments Med Refill 03/08/2024 Encounter Details Date Type Department Care Team ([facility] Contact Info) Description 03/08/2024 Telephone [facility] MEDICINE [address] [place] [address] Adal Terrell MD 230 [place] [address] Med Refill Social History Tobacco Use Types [...] immediate release tablet To be sent to: [facility] documented in this encounter Plan of Treatment Upcoming Encounters Date Type Department Care Team (Late st Contact Info) Description 11/29/2024 2:00 PM EDT Telemedicine [facility] CHC MED & PEDS 505 [place] [address] Marci Kennedy, RN 505 [place] [address] 12/14/2024 1:15 PM EDT Office Visit [facility] MEDICINE 230 [place] [address] Adal Terrell MD 230 [place] [address] documented as of this encounter Visit Diagnoses Not on filedocumented in this encounter Additional Health Concerns Assessment Noted Time PHQ-9 Depression Total Score: 5 01/27/20 24 10:54 AM EDT documented as of this encounter Care Teams Health Promotion Specialist Relationship Specialty Start Date End Date Adal Terrell MD 230 [place] [address] PCP - General Internal Medicine 03/08/14 documented as of this encounter
--- OUTSIDE RECORDS SUMMARY | 2024-09-21 07:18 | XMS_ITS | Encounter Summary ---
Author Organization [employer] Address [address] 7t [place] [address] Care Team Providers Care Raised Printer Name Role Phone Adal Terrell MD Primary Care Provide r Reason for Visit * Reason Comments Med Refill Encounter Details Date Type Department Care Team ([facility] st Contact Info) Description 07/23/2023 Refill [facility] MEDICINE 230 [place], [place] [phone] Adal Terrell MD 230 [place], [place] [phone] Chronic right-sided low back pain with right-sided [...] Info) Description 11/29/2024 2:00 PM EDT Telemedicine [facility] CHC MED & PEDS 505 [place] [address] Marci Kennedy, RN 505 [place] [address] 12/14/2024 1:15 PM EDT Office Visit [facility] MEDICINE 230 [place] [address] Adal Terrell MD 230 [place] [address] documented as of this encounter Visit Diagnoses Diagnosis 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
--- OUTSIDE RECORDS SUMMARY | 2024-09-21 07:18 | XMS_ITS | Encounter Summary ---
Author Organization [employer] Address [address] 7t [place] [address] Care Team Providers Care Metal Sander Name Role Phone Adal Terrell MD Primary Care Provide r Reason for Visit * Reason Comments Med Refill Encounter Details Date Type Department Care Team (Late st Contact Info) Description 07/03/2023 Refill [facility] CHC MED & PEDS [address] [place], [place] [phone] Adal Terrell MD 230 [place], [place] [phone] Low vitamin D level Social History Tobacco [...] Info) Description 11/29/2024 2:00 PM EDT Telemedicine [facility] CHC MED & PEDS 505 [place] [address] Marci Kennedy, RN 505 [place] [address] 12/14/2024 1:15 PM EDT Office Visit [facility] MEDICINE [address] [place] [address] Adal Terrell MD [address] [place] [address] documented as of this encounter Visit Diagnoses Diagnosis Low vitamin D level documented in this encounter Additional Health Concerns Assessment Noted Time PHQ-9 Depression Total Score: 0 09/10/19 23 11:00 AM EST documented as of this encounter Care Teams Metal Sander Relationship Specialty Start Date End Date Adal Terrell MD 230 [place] [address] PCP - General Internal Medicine 03/08/14 documented as of this encounter
--- OUTSIDE RECORDS SUMMARY | 2024-09-21 07:18 | XMS_ITS | Encounter Summary ---
Author Organization [employer] Address [address] 7t [place] [address] Care Team Providers Care Rounding And Backing Machine Operator Name Role Phone Adal Terrell MD Primary Care Provide r Encounter Details Date Type Department Care Team ([facility] st Contact Info) Description 02/05/2024 Orders Only [facility] MEDICINE 230 [place] [address] Adal Terrell MD 230 [place] [address] Social History Tobacco Use Types Packs/Day Years [...] 11/29/2024 2:00 PM EDT Telemedicine [facility] CHC MED & PEDS 505 [place] [address] Marci Kennedy, RN 505 [place] [address] 12/14/2024 1:15 PM EDT Office Visit [facility] MEDICINE 230 [place] [address] Adal Terrell MD 230 [place] [address] documented as of this encounter Procedures Procedure Name Priority Date/Time Associated Diagnosis Comments COLONOSCOPY Routine 08/31/2018 3:43 PM EST documented in this encounter Results * Hm Colonoscopy (08/31/2018 3:43 PM EST) Adal Mccarthy MD HEALTH MAINTENANCE Fi nal Result documented in this encounter Visit Diagnoses Not on filedocumented in this encounter Additional Health Concerns Assessment Noted Time PHQ-9 Depression Total Score: 5 01/27/20 24 10:54 AM EDT documented as of this encounter Care Teams Rounding And Backing Machine Operator Relationship Specialty Start Date End Date Adal Terrell MD [address] [place] [address] PCP - General Internal Medicine 03/08/14 documented as of this encounter
--- OUTSIDE RECORDS SUMMARY | 2024-09-21 07:19 | XMS_ITS | Encounter Summary ---
Author Organization [employer] Address [address] [facility] [address] [place] [address] Care Team Providers Care Mft Name Role Phone Adal Terrell MD Primary Care Provide r Encounter Details Date Type Department Care Team (Late st Contact Info) Description 09/10/2024 Orders Only GENERIC EXTERNAL DATA DEPARTMENT Provider, [...] Info) Description 11/29/2024 2:00 PM EDT Telemedicine [facility] CHC MED & PEDS 505 [place] [address] Marci Kennedy RN 505 [place] [address] 12/14/2024 1:15 PM EDT Office Visit [facility] MEDICINE 230 [place] [address] Adal Terrell MD 230 [place] [address] documented as of this encounter Procedures Procedure Name Priority Date/Time Associated Diagnosis Comments VITAMIN B12 Routine 09/10/2024 11:04 AM EST documented in this encounter Results * Vitamin B12 (09/10/2024 11:04 AM EST) Vitamin B12 581 200 - 900 pg/mL [facility] Comment:NORMAL 200-900 PG/ML INDETERMINATE 160-199 PG/ML DEFICIENT < 160 PG/ML 09/10/2024 11:0 4 AM EST 09/10/2024 11:04 AM EST us Generic External Data Provider LAB BLOOD ORDERAB LES Final Result [facility] [address] [place] [address] [phone] documented in this encounter Visit Diagnoses Not on filedocumented in this encounter Additional Health Concerns Assessment Noted Time PHQ-9 Depression Total Score: 5 01/27/20 24 10:54 AM EDT documented as of this encounter Care Teams Mft Relationship Specialty Start Date End Date Adal Terrell MD [address] [place] [address] PCP - General Internal Medicine 03/08/14 documented as of this encounter
--- OUTSIDE RECORDS SUMMARY | 2024-09-21 07:19 | XMS_ITS | Encounter Summary ---
Author Organization [employer] Address [address] [place] [address] Care Team Providers Care Lacquer Maker Name Role Phone Adal Terrell MD Primary Care Provide r Encounter Details Date Type Department Care Team ([facility] st Contact Info) Description 09/10/2024 Telephone [facility] MEDICINE 230 [place] [address] Adal Terrell MD 230 [place] [address] Social History Tobacco Use Types Packs/Day Years [...] * Telephone Encounter - Cammie Akhtar - 09/10/2024 3:38 PM EST Called Patient left vm, advised to call back and schedule a f/u with PCP. Ok to schedule f/u 15 minMid November for asthma. documented in this encounter Plan of Treatment Upcoming Encounters Date Type Department Care Team (Late st Contact Info) Description 11/29/2024 2:00 PM EDT Telemedicine [facility] CHC MED & PEDS [address] [place] [address] Marci Kennedy, YANET 505 [place] [address] 12/14/2024 1:15 PM EDT Office Visit [facility] MEDICINE [address] [place] [address] Adal Terrell MD [address] [place] [address] documented as of this encounter Visit Diagnoses Not on filedocumented in this encounter Additional Health Concerns Assessment Noted Time PHQ-9 Depression Total Score: 5 01/27/20 24 10:54 AM EDT documented as of this encounter Care Teams Lacquer Maker Relationship Specialty Start Date End Date Adal Terrell MD [address] [place] [address] PCP - General Internal Medicine 03/08/14 documented as of this encounter
--- OUTSIDE RECORDS SUMMARY | 2024-09-21 07:19 | XMS_ITS | Clinical Summary ---
Author Organization [facility] Address [address] [place] [address] Care Team Providers Care Wheel Truer Name Role Phone Unavailable Primary Care Provider [...]
--- OUTSIDE RECORDS SUMMARY | 2024-09-21 07:19 | XMS_ITS | Clinical Summary ---
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 HISTORICAL/NON ORDERA BLE LABS Final Result Performing Organization Address [facility]/ZIP Co de Phone Number [facility] [address] [place] [address], * HIV 1/2 ANTIGEN/ANTIBODY,FOURTH GENERATION W/RFL (02/05/2022 9:38 AM EDT) HIV-1/2 ANTIGEN AND ANTIBODIES, 4TH GENERATION W/ REFLEX TNP [facility] Comment: TEST NOT PERFORMED ?? No serum received. 02/05/2022 9:38 AM EDT us Adal Mccarthy MD LAB BLOOD ORDERABLES Final Result Performing Organization Address [facility] Co de Phone Number [facility] [address] [place] [address], * Hm Colonoscopy (08/31/2018 3:43 PM EST) us Adal Mccarthy MD HEALTH MAINTENANCE Fi nal Result * HPV mRNA E6/E7 (06/04/2018 12:00 AM EST) Pathologist [facility] HPV mRNA E6/E7 Not Detected NOT DETECTED [facility] Comment: This test was performed using the APTIMA(R) HPV Assay ([employer] This assay detects E6/E7 viral messenger RNA (mRNA) from 14 high-risk HPV types (16,18,31,33,35,39,45,51, 52,56,58,59,66,68). For additional information please refer to: http://education.[employer]/faq/XPB963o7 (This link is being provided for informational/ educational purposes only.) The analytical performance characteristics of this assay have been determined by [employer] [place], [place]. The modifications have not been cleared or approved by the FDA. This assay has been validated pursuant to the CLIA regulations and is used for clinical purposes. Test Performed by [employer] ([employer], [employer] [facility], [address] [place] [address] Marcos Hughes M.D., Ph.D., Director of Laboratories , BOBBI [id number] Please note: ??Effective 04/08/2016, HPV testing will be performed using [employer]'s APTIMA test which targets mRNA. Detecting mRNA instead of DNA, as in older methods, offers significant improvements in specificity. 06/04/2018 us Lisa Goldstein CNM HISTORICAL/NON ORDERABLE LABS Final Result [facility] [address] from Last 3 Months or Most Recently Relevant to Health Maintenance Insurance [employer] Care Teams [employer] Relationship Specialty Start Date End Date Adal Terrell MD [address] [place] [address] PCP - General Internal Medicine 03/08/14
[2024-10-29 12:52] VITALS: BMI 31.9
--- NOTE | 2024-11-01 12:28 | HO.ANESPROP2 ---
HPI - Anesthesia Eval Consult details Narrative: 48yo F for Upper Endoscopy and Colonoscopy Multiple Med Allergies PMFSH Active Problems Active Problems: All Active Problems Periodic limb movements of sleep (Acute) Regurgitation of food (Acute) Acid reflux (Acute) Chronic diarrhea (Acute) Fatigue due to sleep pattern disturbance (Acute) Varicose veins of both lower extremities with inflammation (Acute) Sleep apnea (Acute) Other cervical disc degeneration at C5-C6 level (Acute) Chronic pain syndrome (Acute) Cervicalgia (Acute) Cervical radiculopathy (Acute) Cervical disc disorder (Acute) Snoring (Acute) Hypersomnia (Acute) Left knee pain (Acute) Fibromyalgia (Acute) Hepatic steatosis (Acute) Past Medical History Medical History Hepatic steatosis Migraines Asthma Recurrent UTI Adhesive capsulitis of right shoulder Fibromyalgia Unspecified internal derangement of unspecified knee Family History Family History Father No problems noted. Mother No problems noted. Maternal Aunt Breast cancer Paternal Uncle Cancer Surgical History Surgical History History of esophagogastroduodenoscopy (EGD) H/O colonoscopy History of left oophorectomy Previous section History of partial hysterectomy Social History Social History Household Members: None Housing: Apartment Are you a primary intensive care unit registered nurse to a significant other at home: No Do you presently have visiting nurse or other home services: No Alcohol intake: current Alcohol intake frequency: holidays/special occasions only Patient Tobacco Use Status: Former Tobacco user Tobacco use type: Cigarette Second Hand Smoke Exposure: No Substance Use Type: Marijuana service: No Current occupational status: unemployed 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 Allergies Allergy/AdvReac Type Severity Reaction Status Date / Time levofloxacin [From Levaquin] Allergy Intermediate INTERACTED Verified 09/01/24 14:06 W/ANTI DEPRESSANT morphine [MORPHINE] Allergy Intermediate ITCHING, Verified 09/01/24 14:06 HIVES trazodone [TRAZODONE] Allergy Mild TACHYCARDIA Verified 09/01/24 14:06 amitriptyline Allergy Unknown Unknown Verified 09/01/24 14:06 citalopram Allergy Unknown Unknown Verified 09/01/24 14:06 escitalopram Allergy Unknown Unknown Verified 09/01/24 14:06 ibuprofen Allergy Unknown Unknown Verified 09/01/24 14:06 ketorolac Allergy Unknown Unknown Verified 09/01/24 14:06 sertraline Allergy Unknown Unknown Verified 09/01/24 14:06 Sulfa (Sulfonamide Allergy Unknown Unknown Verified 09/01/24 14:06 Antibiotics) topiramate Allergy Unknown Unknown Verified 09/01/24 14:06 trimethoprim Allergy Unknown Unknown Verified 09/01/24 14:06 zolpidem Allergy Unknown Unknown Verified 09/01/24 14:06 NSAIDS (Non-Steroidal AdvReac Severe HYPEREMESIS Verified 09/01/24 14:06 Anti-Inflamma [NSAIDS (NON-STEROIDAL ANTI-INFLAMMA] adhesive tape AdvReac Blister Verified 09/01/24 14:06 From Celexa Allergy Intermediate INTERACTS Uncoded 05/08/23 15:55 W/LEVAQUIN ANTIDEPRESENT Allergy Unknown Unknown Uncoded 05/08/23 15:55 Sulfamethoxazole Allergy Unknown Unknown Uncoded 05/08/23 15:55 toradol Allergy Unknown Unknown Uncoded 05/08/23 15:55 From Ambien AdvReac Severe TACHYCARDIA Uncoded 05/08/23 15:55 From Ultram AdvReac Severe TACHYCARDIA Uncoded 05/08/23 15:55 From ZOLOFT AdvReac Severe TACHYCARDIA Uncoded 05/08/23 15:55 From TORADOL AdvReac Mild STOMACH Uncoded 05/08/23 15:55 UPSET Home Medications ?Medication ?Instructions ?Recorded ?Confirmed ?Last Taken ?Type albuterol sulfate 2.5 mg/0.5 mL 5 mg inhalation QID 05/17/20 07/29/24 Unknown History solution for nebulization montelukast 10 mg tablet 10 mg PO DAILY 05/17/20 07/29/24 Unknown History (Singulair) omeprazole 40 mg capsule,delayed 40 mg PO BID 05/24/21 07/29/24 Unknown History release blood sugar diagnostic (FreeStyle #10 ea 07/02/21 07/29/24 Unknown History Lite Strips) lancets 33 gauge (TRUEplus Lancets) #100 ea 07/02/21 07/29/24 Unknown History albuterol sulfate 90 mcg/actuation 2 puff PO Q4-6H PRN Shortness Of 12/24/21 07/29/24 Unknown History aerosol inhaler (ProAir HFA) Breath Exam Height,Weight and Vital Signs: Height 5 ft 3 in Weight 81.59 kg Assessment and Plan Assessment Anesthesia Assessment: Chart Reviewed
--- NOTE | 2024-11-02 06:34 | P.HPSUR_ITS ---
Pre-Procedural Eval Section A - 24 Hr Update-Section A only Date of Service: 11/02/24 Section B - Complete if H&P > 30 days Chief Complaint: GERD, chronic diarrhea Details of Present Illness: Hepatic steatosis Migraines Asthma Recurrent UTI Adhesive capsulitis of right shoulder Fibromyalgia Unspecified internal derangement of unspecified knee Surgical History History of esophagogastroduodenoscopy (EGD) H/O colonoscopy History of left oophorectomy Previous section History of partial hysterectomy Present Medications: see Short Stay Collaborative assessment Allergies: Allergies Allergy/AdvReac Type Severity Reaction Status Date / Time levofloxacin [From Levaquin] Allergy Intermediate INTERACTED Verified 09/01/24 14:06 W/ANTI DEPRESSANT morphine [MORPHINE] Allergy Intermediate ITCHING, Verified 09/01/24 14:06 HIVES trazodone [TRAZODONE] Allergy Mild TACHYCARDIA Verified 09/01/24 14:06 amitriptyline Allergy Unknown Unknown Verified 09/01/24 14:06 citalopram Allergy Unknown Unknown Verified 09/01/24 14:06 escitalopram Allergy Unknown Unknown Verified 09/01/24 14:06 ibuprofen Allergy Unknown Unknown Verified 09/01/24 14:06 ketorolac Allergy Unknown Unknown Verified 09/01/24 14:06 sertraline Allergy Unknown Unknown Verified 09/01/24 14:06 Sulfa (Sulfonamide Allergy Unknown Unknown Verified 09/01/24 14:06 Antibiotics) topiramate Allergy Unknown Unknown Verified 09/01/24 14:06 trimethoprim Allergy Unknown Unknown Verified 09/01/24 14:06 zolpidem Allergy Unknown Unknown Verified 09/01/24 14:06 NSAIDS (Non-Steroidal AdvReac Severe HYPEREMESIS Verified 09/01/24 14:06 Anti-Inflamma [NSAIDS (NON-STEROIDAL ANTI-INFLAMMA] adhesive tape AdvReac Blister Verified 09/01/24 14:06 From Celexa Allergy Intermediate INTERACTS Uncoded 05/08/23 15:55 W/LEVAQUIN ANTIDEPRESENT Allergy Unknown Unknown Uncoded 05/08/23 15:55 Sulfamethoxazole Allergy Unknown Unknown Uncoded 05/08/23 15:55 toradol Allergy Unknown Unknown Uncoded 05/08/23 15:55 From Ambien AdvReac Severe TACHYCARDIA Uncoded 05/08/23 15:55 From Ultram AdvReac Severe TACHYCARDIA Uncoded 05/08/23 15:55 From ZOLOFT AdvReac Severe TACHYCARDIA Uncoded 05/08/23 15:55 From TORADOL AdvReac Mild STOMACH Uncoded 05/08/23 15:55 UPSET Review of Systems Review of Systems Comment: 10 point ROS negative Exam Surgical H&P Exam: Normal: HEENT, Normal: Heart, Normal: Lungs, Normal: Extremities, Normal: Abdomen, Normal: Skin and Normal: Neurological Plan Diagnosis/Plan: Unchanged I have reviewed the history and physical and performed a pertinent physical examination on my patient. No changes have occurred unless specified. Time Spent With Patient Time: Total time managing care of this patient today ____ minutes.
[2024-11-02 06:44] VITALS: BMI 31.9
[2024-11-02 06:46] VITALS: BP 110/59; PULSE 75; RESP 15; TEMP 36.4; O2SAT 97
[2024-11-02] MEDS: Lactated Ringers 1,000 ML 100 ML IVCONT (07:01)
--- NOTE | 2024-11-02 07:18 | P.CONAN_ITS ---
[facility] Active Problems Active Problems: All Active Problems Periodic limb movements of sleep (Acute) Regurgitation of food (Acute) Acid reflux (Acute) Chronic diarrhea (Acute) Fatigue due to sleep pattern disturbance (Acute) Varicose veins of both lower extremities with inflammation (Acute) Sleep apnea (Acute) Other cervical disc degeneration at C5-C6 level (Acute) Chronic pain syndrome (Acute) Cervicalgia (Acute) Cervical radiculopathy (Acute) Cervical disc disorder (Acute) Snoring (Acute) Hypersomnia (Acute) Left knee pain (Acute) Fibromyalgia (Acute) Hepatic steatosis (Acute) Past Medical History Medical History (Updated 11/02/24 @ 06:53 by Leatha Cornelius RN) Sleep apnea Chronic back pain GERD (gastroesophageal reflux disease) Cervical radiculopathy Anemia Hx: UTI (urinary tract infection) Fatty liver Hepatic steatosis Migraines Asthma Recurrent UTI Adhesive capsulitis of right shoulder Fibromyalgia Unspecified internal derangement of unspecified knee Functional capacity: independent ambulation Patient : No Family History Family History Father No problems noted. Mother No problems noted. Maternal Aunt Breast cancer Paternal Uncle Cancer Family history of problems with anesthesia: No Surgical History Surgical History History of esophagogastroduodenoscopy (EGD) H/O colonoscopy History of left oophorectomy Previous section History of partial hysterectomy History of Problems with Anesthesia: No Social History Social History Household Members: None Housing: Apartment Are you a primary workforce investment act career manager to a significant other at home: No Do you presently have visiting nurse or other home services: No Alcohol intake: current Alcohol intake frequency: holidays/special occasions only Patient Tobacco Use Status: Former Tobacco user Tobacco use type: Cigarette Second Hand Smoke Exposure: No Use of substances other than those prescribed or required for medical reasons: Yes Substance Use Type: Marijuana Substance Use Type Other:: last smoked 4/7 am Substance Use Frequency: Daily Are you DNR?: No Advance Directives: No Advance Directives Information Provided: Yes service: No Current occupational status: unemployed Current occupation: [employer] - Right Handed Meds Allergies Allergy/AdvReac Type Severity Reaction Status Date / Time levofloxacin [From Levaquin] Allergy Intermediate INTERACTED Verified 11/02/24 06:53 W/ANTI DEPRESSANT morphine [MORPHINE] Allergy Intermediate ITCHING, Verified 11/02/24 06:53 HIVES trazodone [TRAZODONE] Allergy Mild TACHYCARDIA Verified 11/02/24 06:53 amitriptyline Allergy Unknown Unknown Verified 11/02/24 06:53 citalopram Allergy Unknown Unknown Verified 11/02/24 06:53 escitalopram Allergy Unknown Unknown Verified 11/02/24 06:53 ibuprofen Allergy Unknown Unknown Verified 11/02/24 06:53 ketorolac Allergy Unknown Unknown Verified 11/02/24 06:53 sertraline Allergy Unknown Unknown Verified 11/02/24 06:53 Sulfa (Sulfonamide Allergy Unknown Unknown Verified 11/02/24 06:53 Antibiotics) topiramate Allergy Unknown Unknown Verified 11/02/24 06:53 trimethoprim Allergy Unknown Unknown Verified 11/02/24 06:53 zolpidem Allergy Unknown Unknown Verified 11/02/24 06:53 NSAIDS (Non-Steroidal AdvReac Severe HYPEREMESIS Verified 11/02/24 06:53 Anti-Inflamma [NSAIDS (NON-STEROIDAL ANTI-INFLAMMA] adhesive tape AdvReac Blister Verified 11/02/24 06:53 From Celexa Allergy Intermediate INTERACTS Uncoded 05/08/23 15:55 W/LEVAQUIN ANTIDEPRESENT Allergy Unknown Unknown Uncoded 05/08/23 15:55 Sulfamethoxazole Allergy Unknown Unknown Uncoded 05/08/23 15:55 toradol Allergy Unknown Unknown Uncoded 05/08/23 15:55 From Ambien AdvReac Severe TACHYCARDIA Uncoded 05/08/23 15:55 From Ultram AdvReac Severe TACHYCARDIA Uncoded 05/08/23 15:55 From ZOLOFT AdvReac Severe TACHYCARDIA Uncoded 05/08/23 15:55 From TORADOL AdvReac Mild STOMACH Uncoded 05/08/23 15:55 UPSET Active Medications: Current Medications Albuterol Sulfate (Albuterol Sulfate (0.083%) 2.5 Mg/3 Ml Vial.Neb) 2.5 mg INHALE ONCE PRN PRN Reason: Shortness of Breath/Wheezing Lactated Ringer's (Lr) 1,000 mls @ 100 mls/hr IVCONT .Q10H PEYTON Last Admin: 11/02/24 07:01 Dose: 100 mls/hr Ondansetron HCl (Ondansetron Hcl 4 Mg/2 Ml Vial) 4 mg IVPUSH ONCE ONE Stop: 11/02/24 07:18 Home Medications ?Medication ?Instructions ?Recorded ?Confirmed ?Last Taken ?Type albuterol sulfate 2.5 mg/0.5 mL 5 mg inhalation QID 05/17/20 11/02/24 Unknown History solution for nebulization montelukast 10 mg tablet 10 mg PO DAILY 05/17/20 11/02/24 Unknown History (Singulair) omeprazole 40 mg capsule,delayed 40 mg PO BID 05/24/21 11/02/24 Unknown History release blood sugar diagnostic (FreeStyle #10 ea 07/02/21 11/02/24 Unknown History Lite Strips) lancets 33 gauge (TRUEplus Lancets) #100 ea 07/02/21 11/02/24 Unknown History albuterol sulfate 90 mcg/actuation 2 puff PO Q4-6H PRN Shortness Of 12/24/21 11/02/24 Unknown History aerosol inhaler (ProAir HFA) Breath Exam Height,Weight and Vital Signs: Height 5 ft 3 in Weight 81.647 kg Last Vital Signs Temp 97.6 F 11/02/24 06:46 Pulse 75 11/02/24 06:46 Resp 15 11/02/24 06:46 BP 110/59 L 11/02/24 06:46 Pulse Ox 97 11/02/24 06:46 O2 Del Method Room Air 11/02/24 06:46 Airway Mallampati Class: III TM Dist: >3cm Neck ROM: Full Heart: RRR Lungs: CTA Assessment and Plan Assessment Anesthesia Assessment: Anesthesia Plan Discussed and Chart Reviewed Final Anesthetic Review Family History of Problems with Anesthesia: No History of Problems with Anesthesia: No NPO: Yes ASA Class: II Final Preanesthetic Review: Meds/Allgs Chart Reviewed, Consent Obtained/Reviewed and Anes Risks/Benef Reviewed Patient Risk: Low Procedure Risk: Low Anesthetic Plan Anesthetic Plan: MAC: Disposition: Standard PACU
[2024-11-02] MEDS: ondansetron HCL 4 MG/2 ML VIAL IVPUSH (07:23)
--- NOTE | 2024-11-02 08:39 | P.OPN-COLO_ITS ---
Colonoscopy Operative Note Operative Note Date of Service: 11/02/24 Narrative: Procedure: Upper endoscopy and colonoscopy Indication: GERD, chronic diarrhea Endoscopist: Vee Marques MD Anesthesia Provider: Dr Diana Saravia Anesthesia type: MAC Instrument: [id number] and [id number] EGD Procedure:?? The procedure, indications, preparation and potential complications were reviewed with the patient, who indicated understanding and gave written informed consent to proceed. The endoscope was introduced through the mouth, and advanced to the 2nd part of the duodenum. The mucosa was carefully examined on slow withdrawal of the endoscope. The patient tolerated the procedure well. There were no immediate complications.? EGD Findings:? * Esophagus:? Focal area of heterotopic gastric mucosa noted in upper esophagus. Normal esophageal mucosa was noted in the remaining esophagus. The Z-line was at 36 cm. Cold forceps biopsies were taken from middle and lower esophagus to rule out eosinophilic esophagitis * Stomach:?Atrophic appearing mucosa with erythema and erosions in the antrum. Retroflexion was performed in the cardia. Cold forceps biopsies were taken from the antrum and body of the stomach. * Duodenum:? Normal duodenal mucosa. Cold forceps biopsies were taken from the duodenal bulb and 2nd portion of the duodenum to rule out celiac sprue. Colonoscopy Procedure:? The patient was then turned for the colonoscopy. A digital rectal exam was performed which was normal.? A distal attachment cap was affixed to the tip of the scope and the colonoscope was then inserted through the anus and advanced through the colon and advanced to the cecum at 75 cm and terminal ileum.? Appendiceal orifice and ileocecal valve were identified. Mucosa was carefully examined under high definition white light as the instrument was slowly withdr awn in a retrograde panoramic fashion. Retroflexion was performed in ascending colon and rectum. The procedure was not difficult but did have some looping in sigmoid which was easily reduced. The quality of the prep was BBPS: 1+1+2 =inadequate Withdrawal time 7 minutes Limitations: No limitations Findings: Mucosa: Solid debris noted in cecal pouch and most of the right colon precluding adequate visualization. Protruding lesions: * 1 pedunculated polyp of size 6 mm in sigmoid colon. Cold snare polypectomy was performed. The polyp was completely removed and retrieved. * Small internal hemorrhoids without stigmata of recent bleeding. Impression: 1. Inlet patch 2. Normal esophagus (biopsy) 3. R/o atrophic gastritis (biopsy) 4. Normal duodenum (biopsy) 5. Poor prep 6. 1 polyp removed 7. Internal hemorrhoids Recommendations:?? * Follow-up path results * Repeat colonoscopy within 6-12 months due to poor prep
[2024-11-02 08:42] VITALS: BP 90/55; PULSE 87; RESP 16; TEMP 36.2; O2SAT 95
[2024-11-02 08:56] VITALS: PULSE 73; RESP 16; O2SAT 96
[2024-11-02 09:00] VITALS: BP 104/47; PULSE 69; RESP 16; O2SAT 97
[2024-11-02 09:15] VITALS: BP 97/46; PULSE 79; RESP 16; O2SAT 99
[2024-11-02 09:20] VITALS: BP 110/62; PULSE 72; RESP 16; TEMP 36.2; O2SAT 99
--- NOTE | 2024-11-02 10:56 | HO.POSTANES ---
Post Anesthesia Evaluation Post Anesthesia Evaluation Date of Service: 11/02/24 Vital Signs: Vital Signs Temp Pulse Resp BP Pulse Ox O2 Del Method 11/02/24 09:20 97.1 F 72 16 110/62 99 Room Air 11/02/24 09:15 79 16 97/46 L 99 Room Air 11/02/24 09:00 69 16 104/47 L 97 Room Air 11/02/24 08:56 73 16 96 Room Air 11/02/24 08:42 97.1 F 87 16 90/55 L 95 Room Air 11/02/24 06:46 97.6 F 75 15 110/59 L 97 Room Air Anesthesia: Monitored Mental Status: Awake Pain Control: Satisfactory Nausea/Vomiting: None Hydration: Adequate Anesthesia-Related Issues: No Anes. Related Issues
== END 2024-11-02 10:02 | disposition home or self-care (01) ==
PROVIDERS: PCP Internal Medicine; Visit Provider Internal Medicine
PROC: (CPT 45385; principal; 2024-11-02 07:30)
DX: K52.9 Noninfective gastroenteritis and colitis, unspecified (principal); R10.32 Left lower quadrant pain; D12.5 Benign neoplasm of sigmoid colon; K21.9 Gastro-esophageal reflux disease without esophagitis; Q39.8 Other congenital malformations of esophagus; K29.50 Unspecified chronic gastritis without bleeding; K44.9 Diaphragmatic hernia without obstruction or gangrene; K64.8 Other hemorrhoids; K76.0 Fatty (change of) liver, not elsewhere classified; J45.909 Unspecified asthma, uncomplicated; I10 Essential (primary) hypertension; M79.7 Fibromyalgia; M54.2 Cervicalgia; G43.909 Migraine, unspecified, not intractable, without status migrainosus; G47.33 Obstructive sleep apnea (adult) (pediatric); G47.10 Hypersomnia, unspecified; Z87.440 Personal history of urinary (tract) infections; Z79.891 Long term (current) use of opiate analgesic; Z79.899 Other long term (current) drug therapy; Z88.1 Allergy status to other antibiotic agents; Z88.2 Allergy status to sulfonamides; Z88.5 Allergy status to narcotic agent; Z88.6 Allergy status to analgesic agent; Z88.8 Allergy status to other drugs, medicaments and biological substances; L23.1 Allergic contact dermatitis due to adhesives; Z87.891 Personal history of nicotine dependence; Z98.890 Other specified postprocedural states
CPT/HCPCS: 45385; 43239; 88305; 88313; 88342; J2003; J2405; J2704

== ENCOUNTER → 2024-11-02 05:57 | Outpatient (BNV) | payer MEDICAID, SELFPAY | PROVIDERS: PCP Internal Medicine; Visit Provider Internal Medicine | DX: K21.9 Gastro-esophageal reflux disease without esophagitis (principal); Q39.8 Other congenital malformations of esophagus; K52.9 Noninfective gastroenteritis and colitis, unspecified; D12.5 Benign neoplasm of sigmoid colon; K64.8 Other hemorrhoids | CPT/HCPCS: 43239; 45385 ==

== ENCOUNTER 2024-11-04 14:49 | Outpatient (AMB) | payer MEDICAID, SELFPAY ==
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
--- OUTSIDE RECORDS SUMMARY | 2024-11-04 17:28 | XMS_ITS | Encounter Summary ---
Author Organization [employer] Address [address] [place] [address] Care Team Providers Care Outsole Rounder Name Role Phone Adal Terrell MD Primary Care Provide r Encounter Details Date Type Department Care Team (Late st Contact Info) Description 02/16/2024 Orders Only [facility] MEDICINE [address] [place], [place] [phone] Provider, MD Tong Social History Tobacco Use [...] Description 11/29/2024 2:00 PM EDT Telemedicine [facility] MED & PEDS [address] [place] [address] Marci Kennedy, YANET [address] [place] [address] 12/14/2024 1:15 PM EDT Office Visit [facility] MEDICINE [address] [place] [address] Adal Terrell MD [address] [place] [address] documented as of this encounter Procedures Procedure [...] documented as of this encounter Care Teams Outsole Rounder Relationship Specialty Start Date End Date Adal Terrell MD [address] [place] [address] PCP - General Internal Medicine 03/08/14 documented as of this encounter
--- OUTSIDE RECORDS SUMMARY | 2024-11-04 17:28 | XMS_ITS | Encounter Summary ---
Author Organization [employer] Address [address] [facility] [address] [facility] [address] [facility] [address] [place] [address] Care Team Providers Care Air Pollution Specialist Name Role Phone Adal Terrell MD Primary Care Provide r Reason for Visit * Reason Onset Date Comments Med Refill 10/08/2024 Encounter Details Date Type Department Care Team ([facility] Contact Info) Description 10/08/2024 Telephone [facility] MEDICINE [address] [place] [address] Adal Terrell MD [address] [place] [address] Med Refill Social History Tobacco Use Types [...] * Telephone Encounter - Reyes Cooley - 10/11/2024 4:29 PM EDT TC from pt checking status on oxy * Telephone Encounter - Tanya Solano - 10/08/2024 12:57 PM EDT TC from pt requesting medication refill. Medications needing refill : oxyCODONE (Roxicodone) 5 MG immediate release tablet To be sent to: [id number] [address] [place] [address] documented in this encounter Plan of Treatment Upcoming Encounters Date Type Department Care Team (Late st Contact Info) Description 11/29/2024 2:00 PM EDT Telemedicine [facility] MED & PEDS [address] [place] [address] Marci Kennedy, YANET [address] [place] [address] 12/14/2024 1:15 PM EDT Office Visit [facility] MEDICINE [address] [place] [address] Adal Terrell MD [address] [place] [address] documented as of this encounter Visit Diagnoses Not on filedocumented in this encounter Additional Health Concerns Assessment Noted Time PHQ-9 Depression Total Score: 5 01/27/20 24 10:54 AM EDT documented as of this encounter Care Teams Air Pollution Specialist Relationship Specialty Start Date End Date Adal Terrell MD [address] [place] [address] PCP - General Internal Medicine 03/08/14 documented as of this encounter
--- OUTSIDE RECORDS SUMMARY | 2024-11-04 17:28 | XMS_ITS | Encounter Summary ---
Author Organization [employer] Address [address] [place] [address] Care Team Providers Care Senior Bookkeeper Name Role Phone Adal Terrell MD Primary Care Provide r Reason for Visit * Reason Onset Date Comments Letter for School/Work 10/20/2024 Durable Medical Equipment 10/20/2024 Encounter Details Date Type Department Care Team ([facility] Contact Info) Description 10/20/2024 Telephone [facility] [address] [place], [place] [phone] Adal Terrell MD [address] [place] [address] Letter for School/Work; Durable Medical Equipment Social History Tobacco Use Types Packs/Day Years [...] encounter Miscellaneous Notes * Telephone Encounter - Gabriela Morrison RN - 11/03/2024 10:02 AM EDT TC placed to pt to inform and remind that a letter was generated and signed by Dr. Dany clifton from certain days at school due to her chronic medical conditions. The pt was agreeable to thisinformation and states that she will come to the [employer] to pick this up sometime this week. Thept was also offered an appt with PCP on Thursday 11/09 for further assessment in regards to her ongoing sciatic pain. Pt denied taking this appt as she has missed too much class already and would have to miss her lab due to this appt date and time. Per note from Barbra Vazquez RN the pt was advised thatmanolo can always go to the [facility] for ongoing sciatic pain and pain in the wrist and elbow. Pt stated however that she does not like to go to walk in and prefers seeing her PCP. Pt reminded of upcoming appt with PCP on 12/14/2024 and pt states that she can wait until this date. She is actively receiving physical therapy that is helping to mitigate and control her sciatic pain. Pt also informed that theDME for wrist splints is actively being worked on but will take some time. Pt agreeable with plan of care and will call back the office as needed. * Telephone Encounter - Reyes Cooley - 10/29/2024 11:31 AM EDT TC from pt requesting Script for Both wrists and elbows. Medication not helping her , only taking oxy at night * Telephone Encounter - Barbra Galo RN - 10/27/2024 9:42 AM EDT TC placed to pt regarding message below. Pt informed note was generated. Pt reports she did not receive a call but saw note in patient portal and was not happy about the wording because I missed the week...but I went Friday and missed Friday, Friday and ..not sure how they got the message wrong but it's okay. I miss one day and feels like missing a month. I don't plan to miss anymore. Pt then reporting the referral had right sciatica and it is the left sciatica. RN inquired if pt had any other needs at this time and pt reports no its good I have the note because in the future, cannot come have a record. RN educated on [facility] and hours of operation. Pt declined and reports she does not like to go to Walk In. Pt the reporting to document in this note, she is having pain in wrist and reports elbow keeps awake at night. RN informed pt no sooner appt with PCP but can utilize Walk In and provided extended hours also. Pt verbalized understanding and reports she hopes not to have to go to Walk In and starts therapy on Friday. No other questions or concerns expressed at this time. Pt to F/U as needed. Telephone call returned to pt. Explained to pt that Dr Saenz cannot write excuse note for school for specific days because the pt was not seen at clinic and did not call in, explained that per PCP he is willing to write letter explaining she has chronic conditions but it does not guarantee any approved excuses. Pt stated she would like letter. She explained I'm going through a lot states right wrist up to elbow is screaming with pain, I can't write due to the carpal tunnel syndrome and stated left wrist hurts as well. Pt asked for sooner follow up appt than 12/14/24, advised her none sooner with PCP, pt declined to see any other provider, declined to go to [facility] for ongoing CTS pain. Sheasked for bilateral wrist braces in meantime to help with pain. Pt asking for call back when letteris generated. Will send to PCP to advise on wrist braces. -- Joshua Ellis Please explain to patient that the only thing we can do is a letter that states patient has chronicback pain and CTS and that she states she could not go to school as a result. She was not seen at the office and there is no record that she called asking to be seen. In the future she will need to come in to the walk in center if she needs an excuse for school or work. * Telephone Encounter - Lori Macedo RN - 10/25/2024 2:36 PM EDT Telephone call returned to pt. Explained to pt that Dr Saenz cannot write excuse note for school for specific days because the pt was not seen at clinic and did not call in, explained that per PCP he is willing to write letter explaining she has chronic conditions but it does not guarantee any approved excuses. Pt stated she would like letter. She explained I'm going through a lot states right wrist up to elbow is screaming with pain, I can't write due to the carpal tunnel syndrome and stated left wrist hurts as well. Pt asked for sooner follow up appt than 12/14/24, advised her none sooner with PCP, pt declined to see any other provider, declined to go to [facility] for ongoing CTS pain. Sheasked for bilateral wrist braces in meantime to help with pain. Pt asking for call back when letteris generated. Will send to PCP to advise on wrist braces. -- Joshua Ellis Please explain to patient that the only thing we can do is a letter that states patient has chronicback pain and CTS and that she states she could not go to school as a result. She was not seen at the office and there is no record that she called asking to be seen. In the future she will need to come in to the walk in center if she needs an excuse for school or work. * Telephone Encounter - Tanya Solano - 10/21/2024 1:30 PM EDT Tc from pt regarding prior message. * Telephone Encounter - Reyes Cooley - 10/20/2024 11:28 AM EDT TC from pt requesting a letter for school . Pt states has had sciatic pain and hand pain and was not able to go into school Wednesday 10/18 and 10/20. Field Marketing Director offered patient to be triaged and advised need to be evaluated in order to get letter. Pt declined. Pt stated has these DX and provider just needs to write a letter. documented in this encounter Plan of Treatment Upcoming Encounters Date Type Department Care Team (Late st Contact Info) Description 11/29/2024 2:00 PM EDT Telemedicine [facility] [address] [place] [address] Marci Kennedy, YANET [address] [place] [address] 12/14/2024 1:15 PM EDT Office Visit [facility] [address] [place] [address] Adal Terrell MD [address] [place] [address] documented as of this encounter Visit Diagnoses Not on filedocumented in this encounter Additional Health Concerns Assessment Noted Time PHQ-9 Depression Total Score: 5 01/27/20 24 10:54 AM EDT documented as of this encounter Care Teams Senior Bookkeeper Relationship Specialty Start Date End Date Adal Terrell MD [address] [place] [address] PCP - General Internal Medicine 03/08/14 documented as of this encounter
--- OUTSIDE RECORDS SUMMARY | 2024-11-04 17:28 | XMS_ITS | Clinical Summary ---
Author Organization [facility] Address [address] [place] [address] Care Team Providers Care Medical Associate Name Role Phone Unavailable Primary Care Provider [...]
--- OUTSIDE RECORDS SUMMARY | 2024-11-04 17:28 | XMS_ITS | Encounter Summary ---
Author Organization [employer] Address [address] [facility] 7t [place] [address] Care Team Providers Care Sole Filler Name Role Phone Adal Terrell MD Primary Care Provide r Reason for Visit * Reason Onset Date Comments Med Refill 01/02/2023 Encounter Details Date Type Department Care Team ([facility] st Contact Info) Description 01/02/2023 Telephone [facility] MEDICINE [address] [place] [phone] Adal Terrell MD [address] [place] [address] Med Refill Social History Tobacco Use Types [...] 2:00 PM EDT Telemedicine [facility]ED[facility] [address] [place] [address] Marci Kennedy, RN [address] [place] [address] 12/14/2024 1:15 PM EDT Office Visit [facility] MEDICINE [address] [place] [address] Adal Terrell MD [address] [place] [address] documented as of this encounter Visit Diagnoses Not on filedocumented in this encounter Additional Health Concerns Assessment Noted Time PHQ-9 Depression Total Score: 0 09/10/19 23 11:00 AM EST documented as of this encounter Care Teams Sole Filler Relationship Specialty Start Date End Date Adal Terrell MD [address] [place] [address] PCP - General Internal Medicine 03/08/14 documented as of this encounter
--- OUTSIDE RECORDS SUMMARY | 2024-11-04 17:28 | XMS_ITS | Encounter Summary ---
Author Organization [employer] Address [address] [facility] 7t [place] [address] Care Team Providers Care Vegetable Worker Name Role Phone Adal Terrell MD Primary Care Provide r Reason for Visit * Reason Onset Date Comments Appointment Request 10/29/2022 Encounter Details Date Type Department Care Team ([facility] st Contact Info) Description 10/29/2022 Telephone [facility] [address] [place] [address] Adal Terrell MD [address] [place] [address] Appointment Request Social History Tobacco Use Types [...] only with him. Please contact pt at [phone] documented in this encounter Plan of Treatment Upcoming Encounters Date Type Department Care Team (Late st Contact Info) Description 11/29/2024 2:00 PM EDT Telemedicine [facility] [address] [place] [address] Marci Kennedy, RN [address] [place] [address] 12/14/2024 1:15 PM EDT Office Visit [facility] [address] [place] [address] Adal Terrell MD [address] [place] [address] documented as of this encounter Visit Diagnoses Not on filedocumented in this encounter Additional Health Concerns Assessment Noted Time PHQ-9 Depression Total Score: 0 09/10/19 23 11:00 AM EST documented as of this encounter Care Teams Vegetable Worker Relationship Specialty Start Date End Date Adal Terrell MD [address] [place] [address] PCP - General Internal Medicine 03/08/14 documented as of this encounter
--- OUTSIDE RECORDS SUMMARY | 2024-11-04 17:28 | XMS_ITS | Encounter Summary ---
Author Organization [employer] Address [address] [place] [address] Care Team Providers Care Sandwich Board Carrier Name Role Phone Adal Terrell MD Primary Care Provide r Reason for Visit * Reason Onset Date Comments Letter for School/Work 12/12/2023 Appointment Request 12/12/2023 Encounter Details Date Type Department Care Team ([facility] Contact Info) Description 12/12/2023 Telephone [facility] MEDICINE [address] [place], [place] [phone] Adal Terrell MD [address] [place] [address] Letter for School/Work; Appointment Request Social History [...] 2:00 PM EDT Telemedicine [facility] MED & PEDS [address] [place] [address] Marci Kennedy, YANET [address] [place] [address] 12/14/2024 1:15 PM EDT Office Visit [facility] MEDICINE [address] [place] [address] Adal Terrell MD [address] [place] [address] documented as of this encounter Visit Diagnoses Not on filedocumented in this encounter Additional Health Concerns Assessment Noted Time PHQ-9 Depression Total Score: 0 09/10/19 23 11:00 AM EST documented as of this encounter Care Teams Sandwich Board Carrier Relationship Specialty Start Date End Date Adal Terrell MD [address] [place] [address] PCP - General Internal Medicine 03/08/14 documented as of this encounter
--- OUTSIDE RECORDS SUMMARY | 2024-11-04 17:28 | XMS_ITS | Encounter Summary ---
Author Organization [employer] Address [address] 7[address] [place] [address] Care Team Providers Care Diesel Mechanic Farm Name Role Phone Adal Terrell MD Primary Care Provide r Encounter Details Date Type Department Care Team ([facility] st Contact Info) Description 02/05/2024 Orders Only [facility] MEDICINE [address] [place] [address] Adal Terrell MD [address] [place] [address] Social History Tobacco Use Types Packs/Day Years [...] Info) Description 11/29/2024 2:00 PM EDT Telemedicine [facility] CH[facility] MED & PEDS [address] [place] [address] Marci Kennedy, RN [address] [place] [address] 12/14/2024 1:15 PM EDT Office Visit [facility] MEDICINE [address] [place] [address] Adal Terrell MD [address] [place] [address] documented as of this encounter Procedures Procedure [...] documented as of this encounter Care Teams Diesel Mechanic Farm Relationship Specialty Start Date End Date Adal Terrell MD [address] [place] [address] PCP - General Internal Medicine 03/08/14 documented as of this encounter
--- OUTSIDE RECORDS SUMMARY | 2024-11-04 17:28 | XMS_ITS | Clinical Summary ---
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 will be performed using [employer] APTIMA test which targets mRNA. Detecting mRNA instead of DNA, as in older methods, offers significant improvements in specificity. 06/04/2018 us Lisa Goldstein CNM HISTORICAL/NON ORDERABLE LABS Final Result [facility] [address] from Last 3 Months or Most Recently Relevant to Health Maintenance Insurance [employer] Care Teams Key Sander Relationship Specialty Start Date End Date Adal Terrell MD [address] [place] [address] PCP - General Internal Medicine 03/08/14"
--- OUTSIDE RECORDS SUMMARY | 2024-11-04 17:28 | XMS_ITS | Encounter Summary ---
Author Organization [employer] Address [address] [facility] 7[address] [place] [address] Care Team Providers Care Drawing Supervisor Name Role Phone Adal Terrell MD Primary Care Provide r Reason for Visit * Reason Onset Date Comments Med Refill 11/05/2022 Encounter Details Date Type Department Care Team (Late Contact Info) Description 11/05/2022 Telephone [facility] MEDICINE [address] [place] [phone] Adal Terrell MD [address] [place] [address] Med Refill Social History Tobacco Use Types [...] Info) Description 11/29/2024 2:00 PM EDT Telemedicine [facility] MED & PEDS 505 [place] [address] Marci Kennedy, RN 505 [place] [address] 12/14/2024 1:15 PM EDT Office Visit [facility] MED[facility] [address] [place] [address] Adal Terrell MD [address] [place] [address] documented as of this encounter Visit Diagnoses Not on filedocumented in this encounter Additional Health Concerns Assessment Noted Time PHQ-9 Depression Total Score: 0 09/10/19 23 11:00 AM EST documented as of this encounter Care Teams Drawing Supervisor Relationship Specialty Start Date End Date Adal Terrell MD [address] [place] [address] PCP - General Internal Medicine 03/08/14 documented as of this encounter
--- OUTSIDE RECORDS SUMMARY | 2024-11-04 17:28 | XMS_ITS | Encounter Summary ---
Author Organization [employer] Address [address] 7[address] [place] [address] Care Team Providers Care Farm Implement Engine Mechanic Name Role Phone Adal Terrell MD Primary Care Provide r Reason for Visit * Reason Onset Date Comments Med Refill 02/09/2024 Encounter Details Date Type Department Care Team ([facility] Contact Info) Description 02/09/2024 Telephone [facility] MEDICINE [address] [place] [address] Adal Terrell MD [address] [place] [address] Med Refill Social History Tobacco Use Types [...] immediate release tablet To be sent to: [id number] [place], [place] - [address] [facility] documented in this encounter Plan of Treatment Upcoming Encounters Date Type Department Care Team ([facility] st Contact Info) Description 11/29/2024 2:00 PM EDT Telemedicine [facility] CHC MED & PEDS [address] [place] [address] Marci Kennedy, YANET 505 [place] [address] 12/14/2024 1:15 PM EDT Office Visit [facility] MEDICINE [address] [place] [address] Adal Terrell MD [address] [place] [address] documented as of this encounter Visit Diagnoses Not on filedocumented in this encounter Additional Health Concerns Assessment Noted Time PHQ-9 Depression Total Score: 5 01/27/20 24 10:54 AM EDT documented as of this encounter Care Teams Farm Implement Engine Mechanic Relationship Specialty Start Date End Date Adal Terrell MD [address] [place] [address] PCP - General Internal Medicine 03/08/14 documented as of this encounter
--- OUTSIDE RECORDS SUMMARY | 2024-11-04 17:28 | XMS_ITS | Encounter Summary ---
Author Organization [employer] Address [address] 7[address] [place] [address] Care Team Providers Care Process Project Engineer Name Role Phone Adal Terrell MD Primary Care Provide r Reason for Visit * Reason Onset Date Comments Appointment Request 03/19/2023 Encounter Details Date Type Department Care Team ([facility] st Contact Info) Description 03/19/2023 Telephone [facility] MEDICINE [address] [place] [address] [phone] Adal Terrell MD [address] [place] [address] Appointment Request Social History Tobacco Use Types [...] EDT Tc from pt requesting to r/s [employer] 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 Pt states due to an emergency she has to fly out to [place] and won't be back in two weeks. Please contact pt at [phone] documented in this encounter Plan of Treatment Upcoming Encounters Date Type Department Care Team (Late st Contact Info) Description 11/29/2024 2:00 PM EDT Telemedicine [facility] CHC MED & PEDS [address] [place] [address] Marci Kennedy, RN 505 [place] [address] 12/14/2024 1:15 PM EDT Office Visit [facility] MEDICINE [address] [place] [address] Adal Terrell MD [address] [place] [address] documented as of this encounter Visit Diagnoses Not on filedocumented in this encounter Additional Health Concerns Assessment Noted Time PHQ-9 Depression Total Score: 0 09/10/19 11:00 AM EST documented as of this encounter Care Teams Process Project Engineer Relationship Specialty Start Date End Date Adal Terrell MD [address] [place] [address] PCP - General Internal Medicine 03/08/14 documented as of this encounter
--- OUTSIDE RECORDS SUMMARY | 2024-11-04 17:28 | XMS_ITS | Encounter Summary ---
Author Organization [employer] Address [address] 7t [place] [address] Care Team Providers Care Truck Driver Flatbed Name Role Phone Adal Terrell MD Primary Care Provide r Reason for Visit * Reason Comments Med Refill Encounter Details Date Type Department Care Team ([facility] st Contact Info) Description 07/23/2023 Refill [facility] MEDICINE [address] [place], [place] [phone] Adal Terrell MD [address] [place], [place] [phone] Chronic right-sided low back pain with right-sided [...] 11/29/2024 2:00 PM EDT Telemedicine [facility] CHC MED & PEDS [address] [place] [address] Marci Kennedy, RN 505 [place] [address] 12/14/2024 1:15 PM EDT Office Visit [facility] MEDICINE [address] [place] [address] Adal Terrell MD [address] [place] [address] documented as of this encounter Visit Diagnoses Diagnosis Chronic right-sided low back pain with right-sided sciatica Sacroiliac joint dysfunction Nonallopathic lesion of sacral region, not elsewhere classified documented in this encounter Additional Health Concerns Assessment Noted Time PHQ-9 Depression Total Score: 0 09/10/19 23 11:00 AM EST documented as of this encounter Care Teams Truck Driver Flatbed Relationship Specialty Start Date End Date Adal Terrell MD [address] [place] [address] PCP - General Internal Medicine 03/08/14 documented as of this encounter
--- OUTSIDE RECORDS SUMMARY | 2024-11-04 17:28 | XMS_ITS | Encounter Summary ---
Author Organization [employer] Address [address] 7t [place] [address] Care Team Providers Care Towel Folder Name Role Phone Adal Terrell MD Primary Care Provide r Reason for Visit * Reason Comments Med Refill Encounter Details Date Type Department Care Team (Late st Contact Info) Description 07/03/2023 Refill [facility] CHC MED & PEDS [address] [place], [place] [phone] Adal Terrell MD [address] [place], [place] [phone] Low vitamin D level Social History Tobacco [...] Info) Description 11/29/2024 2:00 PM EDT Telemedicine [facility] CHC MED & PEDS 505 [place] [address] Marci Kennedy, RN 505 [place] [address] 12/14/2024 1:15 PM EDT Office Visit [facility] MEDICINE 230 [place] [address] Adal Terrell MD 230 [place] [address] documented as of this encounter Visit Diagnoses Diagnosis Low vitamin D level documented in this encounter Additional Health Concerns Assessment Noted Time PHQ-9 Depression Total Score: 0 09/10/19 23 11:00 AM EST documented as of this encounter Care Teams Towel Folder Relationship Specialty Start Date End Date Adal Terrell MD [address] [place] [address] PCP - General Internal Medicine 03/08/14 documented as of this encounter
--- OUTSIDE RECORDS SUMMARY | 2024-11-04 17:28 | XMS_ITS | Clinical Summary ---
Author Organization [facility] it Address [address] [place] [address] Care Team Providers Care Awning Spreader Name Role Phone Unavailable Primary Care Provider [...] Vaccine (2023-2 5 season) 2024 Influenza Vaccine (Season Ended) 2025 HIB Vaccines Aged Out No longer eligi [...] age to complete this topic Meningococcal B Vaccine Aged Out No l onger eligible based on patient's age to complete [...] Documents on File Type Date Recorded Patient Functional Director Expl anation Health Care Decision (hx) 07/06/2020 [...]
--- OUTSIDE RECORDS SUMMARY | 2024-11-04 17:28 | XMS_ITS | Encounter Summary ---
Author Organization [employer] Address [address] 7[address] [place] [address] Care Team Providers Care Plating Tank Operator Apprentice Name Role Phone Adal Terrell MD Primary Care Provide r Reason for Visit * Reason Onset Date Comments Med Refill 03/08/2024 Encounter Details Date Type Department Care Team ([facility] Contact Info) Description 03/08/2024 Telephone [facility] MEDICINE [address] [place] [address] Adal Terrell MD [address] [place] [address] Med Refill Social History Tobacco Use Types [...] immediate release tablet To be sent to: [facility] documented in this encounter Plan of Treatment Upcoming Encounters Date Type Department Care Team (Late st Contact Info) Description 11/29/2024 2:00 PM EDT Telemedicine [facility] CHC MED & PEDS 505 [place] [address] Marci Kennedy, RN 505 [place] [address] 12/14/2024 1:15 PM EDT Office Visit [facility] MEDICINE [address] [place] [address] Adal Terrell MD 230 [place] [address] documented as of this encounter Visit Diagnoses Not on filedocumented in this encounter Additional Health Concerns Assessment Noted Time PHQ-9 Depression Total Score: 5 01/27/20 24 10:54 AM EDT documented as of this encounter Care Teams Plating Tank Operator Apprentice Relationship Specialty Start Date End Date Adal Terrell MD 230 [place] [address] PCP - General Internal Medicine 03/08/14 documented as of this encounter
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
--- OUTSIDE RECORDS SUMMARY | 2024-11-04 17:28 | XMS_ITS | Encounter Summary ---
Author Organization [employer] Address [address] 7t [place] [address] Care Team Providers Care Barrel Line Operator Name Role Phone Adal Terrell MD Primary Care Provide r Reason for Visit * Reason Onset Date Comments Nurse Triage 03/05/2024 Encounter Details Date Type Department Care Team ([facility] st Contact Info) Description 03/05/2024 Telephone [facility] MEDICINE 230 [place], [place] [phone] Adal Terrell MD [address] [place] [address] Nurse Triage Social History Tobacco Use Types [...] Info) Description 11/29/2024 2:00 PM EDT Telemedicine [facility] CHC MED & PEDS 505 [place] [address] Marci Kennedy, RN 505 [place] [address] 12/14/2024 1:15 PM EDT Office Visit [facility] MEDICINE 230 [place] [address] Adal Terrell MD [address] [place] [address] documented as of this encounter Visit Diagnoses Not on filedocumented in this encounter Additional Health Concerns Assessment Noted Time PHQ-9 Depression Total Score: 5 01/27/20 24 10:54 AM EDT documented as of this encounter Care Teams Barrel Line Operator Relationship Specialty Start Date End Date Adal Terrell MD [address] [place] [address] PCP - General Internal Medicine 03/08/14 documented as of this encounter
--- OUTSIDE RECORDS SUMMARY | 2024-11-04 17:28 | XMS_ITS | Encounter Summary ---
Author Organization [employer] Address [address] 7t [place] [address] Care Team Providers Care Home Health Aide Caregiver Name Role Phone Adal Terrell MD Primary Care Provide r Reason for Visit * Reason Comments Med Refill Encounter Details Date Type Department Care Team ([facility] st Contact Info) Description 04/05/2024 Refill [facility] MEDICINE [address] [place] [address] Ronel Thomas, ANP [address] [place] [address] COVID-19 Social History Tobacco Use Types Packs/Day [...] [facility] 505 [place] [address] Marci Kennedy, YANET 505 [place] [address] 12/14/2024 1:15 PM EDT Office Visit [facility] MEDICINE [address] [place] [address] Adal Terrell MD [address] [place] [address] documented as of this encounter Visit Diagnoses Diagnosis COVID-19 documented in this encounter Additional Health Concerns Assessment Noted Time PHQ-9 Depression Total Score: 5 01/27/20 24 10:54 AM EDT documented as of this encounter Care Teams Home Health Aide Caregiver Relationship Specialty Start Date End Date Adal Terrell MD [address] [place] [address] PCP - General Internal Medicine 03/08/14 documented as of this encounter
--- OUTSIDE RECORDS SUMMARY | 2024-11-04 17:28 | XMS_ITS | Encounter Summary ---
Author Organization [employer] Address [address] 7t [place] [address] Care Team Providers Care Contractor Field Hauling Name Role Phone Adal Terrell MD Primary Care Provide r Encounter Details Date Type Department Care Team ([facility] st Contact Info) Description 10/13/2024 Telephone [facility] MEDICINE [address] [place] [address] Adal Terrell MD [address] [place] [address] Social History Tobacco Use Types Packs/Day Years [...] Upcoming Encounters Date Type Department Care Team ([facility] st Contact Info) Description 11/29/2024 2:00 PM EDT Telemedicine [facility] MED & PEDS 505 [place] [address] Marci Kennedy RN [address] [place] [address] 12/14/2024 1:15 PM EDT Office Visit [facility] MEDICINE [address] [place] [address] Adal Terrell MD [address] [place] [address] documented as of this encounter Visit Diagnoses Not on filedocumented in this encounter Additional Health Concerns Assessment Noted Time PHQ-9 Depression Total Score: 5 01/27/20 24 10:54 AM EDT documented as of this encounter Care Teams Contractor Field Hauling Relationship Specialty Start Date End Date Adal Terrell MD 230 [place] [address] PCP - General Internal Medicine 03/08/14 documented as of this encounter
--- OUTSIDE RECORDS SUMMARY | 2024-11-04 17:28 | XMS_ITS | Encounter Summary ---
Author Organization [employer] Address [address] [place] [address] Care Team Providers Care Pin Attacher Name Role Phone Adal Terrell MD Primary Care Provide r Reason for Visit * Reason Onset Date Comments Results 08/13/2023 Encounter Details Date Type Department Care Team ([facility] Contact Info) Description 08/13/2023 Telephone [facility] MEDICINE 230 [place], [place] [phone] Adal Terrell MD 230 [place], [place] [phone] Results Social History Tobacco Use Types Packs/Day [...] Info) Description 11/29/2024 2:00 PM EDT Telemedicine [facility] CHC MED & PEDS 505 [place] [address] Marci Kennedy, RN 505 [place] [address] 12/14/2024 1:15 PM EDT Office Visit [facility] MEDICINE [address] [place] [address] Adal Terrell MD [address] [place] [address] documented as of this encounter Visit Diagnoses Not on filedocumented in this encounter Additional Health Concerns Assessment Noted Time PHQ-9 Depression Total Score: 0 09/10/19 23 11:00 AM EST documented as of this encounter Care Teams Pin Attacher Relationship Specialty Start Date End Date Adal Terrell MD [address] [place] [address] PCP - General Internal Medicine 03/08/14 documented as of this encounter
--- OUTSIDE RECORDS SUMMARY | 2024-11-04 17:28 | XMS_ITS | Encounter Summary ---
Author Organization [employer] Address [address] [place] [address] Care Team Providers Care Loss Prevention Associate Name Role Phone Adal Terrell MD Primary Care Provide r Reason for Visit * Reason Onset Date Comments Paperwork/Forms 11/03/2024 Encounter Details Date Type Department Care Team ([facility] Contact Info) Description 11/03/2024 Telephone [facility] MEDICINE 230 [place] [address] Rhonda Mon RN [address] [place] [address] Paperwork/Forms Social History Tobacco Use Types Packs/Day Years [...] Telephone Encounter - Rhonda Mon RN - 11/03/2024 11:16 AM EDT 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 Telephone call placed to pt, filled out form together over the phone. Form placed on PCP's desk. Pending signature. documented in this encounter Plan of Treatment Upcoming Encounters Date Type Department Care Team (Late st Contact Info) Description 11/29/2024 2:00 PM EDT Telemedicine [facility] CHC MED & PEDS 505 [place] [address] Marci Kennedy RN 505 [place] [address] 12/14/2024 1:15 PM EDT Office Visit [facility] MEDICINE [address] [place] [address] Adal Terrell MD [address] [place] [address] documented as of this encounter Visit Diagnoses Not on filedocumented in this encounter Additional Health Concerns Assessment Noted Time PHQ-9 Depression Total Score: 5 01/27/20 24 10:54 AM EDT documented as of this encounter Care Teams Loss Prevention Associate Relationship Specialty Start Date End Date Adal Terrell MD [address] [place] [address] PCP - General Internal Medicine 03/08/14 documented as of this encounter
== END 2024-11-04 15:35 | disposition home or self-care (01) ==
LOC: HO.HNS 14:49
PROVIDERS: PCP Internal Medicine; Visit Provider Physician Assistant
DX: M77.10 Lateral epicondylitis, unspecified elbow (principal)
CPT/HCPCS: 99213

== ENCOUNTER → 2024-11-04 14:49 | Outpatient (BNVA) | payer MEDICAID, SELFPAY | PROVIDERS: PCP Internal Medicine; Visit Provider Physician Assistant | DX: M77.11 Lateral epicondylitis, right elbow (principal) | CPT/HCPCS: 99212 ==

== ENCOUNTER 2024-11-05 14:32 | Outpatient (REF) | payer MEDICAID, SELFPAY ==
--- OUTSIDE RECORDS SUMMARY | 2024-11-05 14:49 | XMS_ITS | Encounter Summary ---
Author Organization [employer] Address [address] [facility] [address] [place] [address] Care Team Providers Care Bailer Tenders Supervisor Name Role Phone Adal Terrell MD Primary Care Provide r Reason for Visit * Reason Onset Date Comments Med Refill 11/05/2022 Encounter Details Date Type Department Care Team (Late Contact Info) Description 11/05/2022 Telephone [facility] MEDICINE [address] [place] [phone] Adal Terrell MD [address] [place] [address] Med Refill Social History Tobacco Use Types [...] 11/29/2024 2:00 PM EDT Telemedicine [facility] CHC MED & PEDS [address] [place] [address] Marci Kennedy, RN [address] [place] [address] 12/14/2024 1:15 PM EDT Office Visit [facility] MEDICINE [address] [place] [address] Adal Terrell MD [address] [place] [address] documented as of this encounter Visit Diagnoses Not on filedocumented in this encounter Additional Health Concerns Assessment Noted Time PHQ-9 Depression Total Score: 0 09/10/19 23 11:00 AM EST documented as of this encounter Care Teams Bailer Tenders Supervisor Relationship Specialty Start Date End Date Adal Terrell MD [address] [place] [address] PCP - General Internal Medicine 03/08/14 documented as of this encounter
--- OUTSIDE RECORDS SUMMARY | 2024-11-05 14:49 | XMS_ITS | Encounter Summary ---
Author Organization [employer] Address [address] [place] [address] Care Team Providers Care Preparation Supervisor Name Role Phone Adal Terrell MD Primary Care Provide r Reason for Visit * Reason Onset Date Comments Results 08/13/2023 Encounter Details Date Type Department Care Team ([facility] Contact Info) Description 08/13/2023 Telephone [facility] MEDICINE [address] [place], [place] [phone] Adal Terrell MD [address] [place], [place] [phone] Results Social History Tobacco Use Types Packs/Day [...] Info) Description 11/29/2024 2:00 PM EDT Telemedicine [facility] CHC MED & PEDS [address] [place] [address] Marci Kennedy, RN [address] [place] [address] 12/14/2024 1:15 PM EDT Office Visit [facility] MEDICINE [address] [place] [address] Adal Terrell MD [address] [place] [address] documented as of this encounter Visit Diagnoses Not on filedocumented in this encounter Additional Health Concerns Assessment Noted Time PHQ-9 Depression Total Score: 0 09/10/19 23 11:00 AM EST documented as of this encounter Care Teams Preparation Supervisor Relationship Specialty Start Date End Date Adal Terrell MD [address] [place] [address] PCP - General Internal Medicine 03/08/14 documented as of this encounter
--- OUTSIDE RECORDS SUMMARY | 2024-11-05 14:49 | XMS_ITS | Encounter Summary ---
Author Organization [employer] Address [address] [facility] 7t [place] [address] Care Team Providers Care Pastry Cook Apprentice Name Role Phone Adal Terrell MD Primary Care Provide r Reason for Visit * Reason Onset Date Comments Appointment Request 10/29/2022 Encounter Details Date Type Department Care Team ([facility] st Contact Info) Description 10/29/2022 Telephone [facility] MEDICINE [address] [place] [phone] Adal Terrell MD [address] [place] [address] Appointment Request Social History Tobacco Use Types [...] only with him. Please contact pt at [phone] documented in this encounter Plan of Treatment Upcoming Encounters Date Type Department Care Team (Late st Contact Info) Description 11/29/2024 2:00 PM EDT Telemedicine [facility] CHC MED & PEDS [address] [place] [address] Marci Kennedy, RN [address] [place] [address] 12/14/2024 1:15 PM EDT Office Visit [facility] MEDICINE [address] [place] [address] Adal Terrell MD [address] [place] [address] documented as of this encounter Visit Diagnoses Not on filedocumented in this encounter Additional Health Concerns Assessment Noted Time PHQ-9 Depression Total Score: 0 09/10/19 23 11:00 AM EST documented as of this encounter Care Teams Pastry Cook Apprentice Relationship Specialty Start Date End Date Adal Terrell MD [address] [place] [address] PCP - General Internal Medicine 03/08/14 documented as of this encounter
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
--- OUTSIDE RECORDS SUMMARY | 2024-11-05 14:49 | XMS_ITS | Encounter Summary ---
Author Organization [employer] Address [address] [facility] [address] 7[address] [place] [address] Care Team Providers Care Auger Press Operator Name Role Phone Adal Terrell MD Primary Care Provide r Reason for Visit * Reason Onset Date Comments Letter for School/Work 12/12/2023 Appointment Request 12/12/2023 Encounter Details Date Type Department Care Team ([facility] Contact Info) Description 12/12/2023 Telephone [facility] MEDICINE [address] [place], [place] [phone] Adal Terrell MD [address] [place] [address] Letter for School/Work; Appointment Request Social History [...] Info) Description 11/29/2024 2:00 PM EDT Telemedicine [facility] MED & PEDS [address] [place] [address] Marci Kennedy, YANET 505 [place] [address] 12/14/2024 1:15 PM EDT Office Visit [facility] MEDICINE [address] [place] [address] Adal Terrell MD [address] [place] [address] documented as of this encounter Visit Diagnoses Not on filedocumented in this encounter Additional Health Concerns Assessment Noted Time PHQ-9 Depression Total Score: 0 09/10/19 23 11:00 AM EST documented as of this encounter Care Teams Auger Press Operator Relationship Specialty Start Date End Date Adal Terrell MD [address] [place] [address] PCP - General Internal Medicine 03/08/14 documented as of this encounter
--- OUTSIDE RECORDS SUMMARY | 2024-11-05 14:49 | XMS_ITS | Encounter Summary ---
Author Organization [employer] Address [address] [facility] [address] [place] [address] Care Team Providers Care General Accounting Manager Name Role Phone Adal Terrell MD Primary Care Provide r Reason for Visit * Reason Onset Date Comments Med Refill 03/08/2024 Encounter Details Date Type Department Care Team ([facility] Contact Info) Description 03/08/[address] [facility] MEDICINE [address] [place] [address] Adal Terrell MD [address] [place] [address] Med Refill Social History Tobacco Use Types [...] immediate release tablet To be sent to: [facility] documented in this encounter Plan of Treatment Upcoming Encounters Date Type Department Care Team (Late st Contact Info) Description 11/29/2024 2:00 PM EDT Telemedicine [facility] CHC MED & PEDS [address] [place] [address] Marci Kennedy, RN [address] [place] [address] 12/14/2024 1:15 PM EDT Office Visit [facility] MEDICINE [address] [place] [address] Adal Terrell MD [address] [place] [address] documented as of this encounter Visit Diagnoses Not on filedocumented in this encounter Additional Health Concerns Assessment Noted Time PHQ-9 Depression Total Score: 5 01/27/20 24 10:54 AM EDT documented as of this encounter Care Teams General Accounting Manager Relationship Specialty Start Date End Date Adal Terrell MD [address] [place] [address] PCP - General Internal Medicine 03/08/14 documented as of this encounter
--- OUTSIDE RECORDS SUMMARY | 2024-11-05 14:49 | XMS_ITS | Encounter Summary ---
Author Organization [employer] Address [address] [address] [place] [address] Care Team Providers Care Turf Keeper Name Role Phone Adal Terrell MD Primary Care Provide r Reason for Visit * Reason Comments Med Refill Encounter Details Date Type Department Care Team (Late st Contact Info) Description 07/03/2023 Refill [facility] CHC MED & PEDS [address] [place], [place] [phone] Adal Terrell MD [address] [place], [place] [phone] Low vitamin D level Social History Tobacco [...] [facility] [address] [place] [address] Marci Kennedy, RN 505 [place] [address] 12/14/2024 1:15 PM EDT Office Visit [facility] MEDICINE [address] [place] [address] Adal Terrell MD [address] [place] [address] documented as of this encounter Visit Diagnoses Diagnosis Low vitamin D level documented in this encounter Additional Health Concerns Assessment Noted Time PHQ-9 Depression Total Score: 0 09/10/19 23 11:00 AM EST documented as of this encounter Care Teams Turf Keeper Relationship Specialty Start Date End Date Adal Terrell MD [address] [place] [address] PCP - General Internal Medicine 03/08/14 documented as of this encounter
--- OUTSIDE RECORDS SUMMARY | 2024-11-05 14:49 | XMS_ITS | Clinical Summary ---
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 detectedTHIS TEST WAS PERFORMED AT:[facility] [address] [id number] RUCKER MD 09/01/2024 3:07 PM EST 09/01/2024 3:07 PM EST Generic External Data Provider LAB BLOOD ORDERAB LES Final Result Performing Organization Address [facility] de Phone Number [facility] [address] [place] [phone] * (ABNORMAL) Immunoglobulins, Quantitative, IgA, IgG, IgM (09/01/2024 3:07 PM EST) IMMUNOGLOBULIN G 1383 600 - 1640 mg/dL [facility] IMMUNOGLOBULIN A 581(A) 47 - 310 mg/dL [facility] Immunoglobulin M 115 50 - 300 mg/dL [facility] Comment:THIS TEST WAS PERFOR MED AT:[facility] [address] [id number] RUCKER MD 09/01/2024 3:07 PM EST 09/01/2024 3:07 PM EST Generic External Data Provider LAB BLOOD ORDERAB LES Final Result Performing Organization Address [facility] de Phone Number [facility] [address] [place] [phone] * Homocysteine (09/01/2024 3:07 PM EST) Pathologist [facility] Homocysteine 7.3 <10.4 umol/L [facility] Comment:Homocysteine is incr eased by functional deficiency offolate or vitamin B12. Testing for methylmalonic aciddifferentiates between these deficiencies. Other causesof increased homocysteine include renal failure, folateantagonists such as methotrexate and phenytoin, andexposure to nitrous oxide.Mala To et al., [place] Communication Professor Med. 1999;131(5):331-9.THIS TEST WAS PERFORMED AT:[facility] [address] [id number] RUCKER MD 09/01/2024 3:07 PM EST 09/01/2024 3:07 PM EST Generic External Data Provider LAB BLOOD ORDERAB LES Final Result Performing Organization Address [facility]/ZIP Co de Phone Number [facility] [address] [place] [phone] [phone] * Hemoglobin A1c (09/01/2024 3:07 PM EST) Hemoglobin A1c 5.9 <6.0 % [facility] Comment:Hemoglobin A1C Refer ence Range Adults: 4.8 - 6.0 % Non diabetic: < 6.0 % Goal: < 7.0 %Additional Action Suggested: > 8.0 %Note: Hemoglobin A1c results are invalid for patients with abnormal amounts of HbF. Blood transfusions may impact the HbA1c concentration in the patient sample. Estimated Average Glucose 123 mg/dL [facility] Comment:eAG = Estimated ave rage glucose which is %A1C expressed asaverage glucose, using the formula of the D6T-KwqkuznXfgntdp Glucose study (ADAG), Diabetes Care, Vol.31,#8,2007 09/01/2024 3:07 PM EST 09/01/2024 3:07 PM EST us Generic External Data Provider LAB BLOOD ORDERAB LES Final Result Performing Organization Address [facility] de Phone Number [facility] [address] [place] [phone] [phone] * BI Mammogram Screening Tomosynthesis Bilateral (08/26/2024 2:40 PM EST) Anatomical Region Laterality Modality Breast Bilateral Mammography 08/26/2024 2:40 PM EST Narrative 09/04/2024 7:21 PM EST ? [facility] [employer] ? [address] ?[place] [address] ? Mammography Report ? Signed ? Patient: Hall,Nisa ?MR#: [id number] ?? [id number] ? : 1975 ?Acct:[id number] ? Age/Sex: 48 / F ?ADM Date: 01/30/25 ? Loc: HO.MAMMO ? Attending Dr: Adal Alves MD ? Ordering Physician: Adal Alves MD ?Resu ?? lts: 2Benign Findings ? Date of Service: 08/26/24 ?Follow Up: 1 Year From Orig ?? inal Mammogram ? Procedure(s): MM tomosynthesis screening BI ?? Accession Number(s): [id number] ? cc: Adal Alves MD ? EXAMINATION: [...] ??Shavonne Corley DO ??09/04/2024 07:18 PM EST ?? RP ? Dictated By: ?Shavonne Corley DO ? Signed By: ?<Electronically signed by Shavonne Corley, DO in OV> ? 09/04/241917 ? DD/ 1440 ? TD/TT: 08/26/24 1450 ? Personnel Officer: ? Procedure Note Donevelynter, Image - 09/04/2024 [facility] [address] [place] [address] Mammography Report Signed Patient: Nisa HallMR#: [id number] : 1975Acct:[id number] Age/Sex: 48 / FADM Date: 08/26/24 Loc: HO.MAMMO Attending Dr: Adal Alves MD Ordering Physician: Adal Alves MDResu lts: 2Benign Findings Date of Service: 08/26/24Follow Up: 1 Year From Orig inal Mammogram Procedure(s): MM tomosynthesis screening BI Accession Number(s): [id number] cc: Adal Alves MD EXAMINATION: MM SCREENING [...] for their next mammogram. Electronically signed by: Shavnone Corley DO 09/04/2024 07:18 PM EST Dictated By: Shavonne Corley DO Signed By: <Electronically signed by Shavonne Corley DO in OV> 09/04/24 1918 DD/ 1440 TD/TT: 08/26/24 1450 Personnel Officer: Adal Mccarthy MD IMG BI PROCEDURES Reji ebenezer Result - Final * HEPATITIS C AB W/REFL TO HCV RNA, QN, PCR (02/05/2022 10:03 AM EDT) HEPATITIS C ANTIBODY NON-REACT HENRIQUE NON-REACT HENRIQUE [facility] INDEX 0.03 <1.00 [facility] Comment: ?? HCV antibody was non-reactive. There is no laboratory ?? evidence of HCV infection. ?? In most cases, no further action is required. However, if recent HCV exposure is suspected, a test for HCV RNA (test code 54961) is suggested. ?? For additional information please refer to http://education.[employer]/faq/RAX22n4 (This link is being provided for informational/ educational purposes only.) ?? 02/05/2022 10:0 3 AM EDT Adal Mccarthy MD HISTORICAL/NON ORDERA BLE LABS Final Result Performing Organization Address [facility] Co de Phone Number [facility] [address] * HIV 1/2 ANTIGEN/ANTIBODY,FOURTH GENERATION W/RFL (02/05/2022 9:38 AM EDT) HIV-1/2 ANTIGEN AND ANTIBODIES, 4TH GENERATION W/ REFLEX TNP [facility] Comment: TEST NOT PERFORMED ?? No serum received. 02/05/2022 9:38 AM EDT Adal Mccarthy MD LAB BLOOD ORDERABLES Final Result Performing Organization Address [facility]/ZIP Co de Phone Number [facility] [address] * HPV mRNA E6/E7 (06/04/2018 12:00 AM EST) HPV mRNA E6/E7 Not Detected NOT DETECTED [facility] Comment: This test was performed using the APTIMA(R) HPV Assay ([employer] This assay detects E6/E7 viral messenger RNA (mRNA) from 14 high-risk HPV types (16,18,31,33,35,39,45,51, 52,56,58,59,66,68). For additional information please refer to: http://education.[employer] Expert/faq/BQQ925h9 (This link is being provided for informational/ educational purposes only.) The analytical performance characteristics of this assay have been determined by [place], [place]. The modifications have not been cleared or approved by the FDA. This assay has been validated pursuant to the CLIA regulations and is used for clinical purposes. Test Performed by [employer], [facility] [place], [address] [place] [address] Marcos Hughes M.D., Ph.D., Director of Laboratories , CLIA [id number] Please note: ??Effective 04/08/2016, HPV testing will be performed using [employer]'s APTIMA test which targets mRNA. Detecting mRNA instead of DNA, as in older methods, offers significant improvements in specificity. 06/04/2018 us Lisa Goldstein CNM HISTORICAL/NON ORDERABLE LABS Final Result Performing Organization Address [facility] Co de Phone Number [facility] [address] from Last 3 Months or Most Recently Relevant to Health Maintenance Insurance Care Teams Surface Logging Systems Logger Relationship Specialty Start Date End Date Adal Terrell MD [address] [place] [phone] PCP - General Internal Medicine 03/08/14
--- OUTSIDE RECORDS SUMMARY | 2024-11-05 14:49 | XMS_ITS | Encounter Summary ---
Author Organization [employer] Address [address] [place] [address] Care Team Providers Care Laborer Cook House Name Role Phone Adal Terrell MD Primary Care Provide r Reason for Visit * Reason Onset Date Comments Paperwork/Forms 11/03/2024 Encounter Details Date Type Department Care Team ([facility] Contact Info) Description 11/03/2024 Telephone [facility] [address] [place] [address] Rhonda Mon RN [address] [place] [address] Paperwork/Forms Social History Tobacco Use Types Packs/Day [...] Info) Description 11/29/2024 2:00 PM EDT Telemedicine [facility] CH[facility] MED & PEDS [address] [place] [address] Marci Kennedy RN [address] [place] [address] 12/14/2024 1:15 PM EDT Office Visit [facility] [address] [place] [address] Adal Terrell MD [address] [place] [address] documented as of this encounter Visit Diagnoses Not on filedocumented in this encounter Additional Health Concerns Assessment Noted Time PHQ-9 Depression Total Score: 5 01/27/20 24 10:54 AM EDT documented as of this encounter Care Teams Laborer Cook House Relationship Specialty Start Date End Date Adal Terrell MD [address] [place] [address] PCP - General Internal Medicine 03/08/14 documented as of this encounter
--- OUTSIDE RECORDS SUMMARY | 2024-11-05 14:49 | XMS_ITS | Clinical Summary ---
Author Organization [facility] it Address [address] [place] [address] Care Team Providers Care Railcar Mechanic Name Role Phone Unavailable Primary Care Provider [...] Documents on File Type Date Recorded Patient Mortgage Closer Expl anation Health Care Decision (hx) 07/06/2020 [...]
--- OUTSIDE RECORDS SUMMARY | 2024-11-05 14:49 | XMS_ITS | Encounter Summary ---
Author Organization [employer] Address [address] [place] [address] Care Team Providers Care Divorce Lawyer Name Role Phone Adal Terrell MD Primary Care Provide r Encounter Details Date Type Department Care Team ([facility] st Contact Info) Description 10/13/2024 Telephone [facility] MEDICINE [address] [place] [address] Adal Terrell MD [address] [place] [address] Social History Tobacco Use Types Packs/Day Years [...] Upcoming Encounters Date Type Department Care Team ([facility] st Contact Info) Description 11/29/2024 2:00 PM EDT Telemedicine [facility] MED & PEDS [address] [place] [address] Marci Kennedy RN [address] [place] [address] 12/14/2024 1:15 PM EDT Office Visit [facility] MED[facility]INE [address] [place] [address] Adal Terrell MD [address] [place] [address] documented as of this encounter Visit Diagnoses Not on filedocumented in this encounter Additional Health Concerns Assessment Noted Time PHQ-9 Depression Total Score: 5 01/27/20 24 10:54 AM EDT documented as of this encounter Care Teams Divorce Lawyer Relationship Specialty Start Date End Date Adal Terrell MD [address] [place] [address] PCP - General Internal Medicine 03/08/14 documented as of this encounter
--- OUTSIDE RECORDS SUMMARY | 2024-11-05 14:49 | XMS_ITS | Encounter Summary ---
Author Organization [employer] Address [address] [place] [address] Care Team Providers Care Warp Tension Tester Name Role Phone Adal Terrell MD Primary Care Provide r Reason for Visit * Reason Onset Date Comments Med Refill 02/09/2024 Encounter Details Date Type Department Care Team ([facility] Contact Info) Description 02/09/2024 Telephone [facility] MEDICINE [address] [place] [address] Adal Terrell MD [address] [place] [address] Med Refill Social History Tobacco Use Types [...] immediate release tablet To be sent to: [id number] [place], [place] - [address] [facility] documented in this encounter Plan of Treatment Upcoming Encounters Date Type Department Care Team ([facility] st Contact Info) Description 11/29/2024 2:00 PM EDT Telemedicine [facility] MED & PEDS [address] [place] [address] Marci Kennedy, YANET [address] [place] [address] 12/14/2024 1:15 PM EDT Office Visit [facility] [address] [place] [address] Adal Terrell MD [address] [place] [address] documented as of this encounter Visit Diagnoses Not on filedocumented in this encounter Additional Health Concerns Assessment Noted Time PHQ-9 Depression Total Score: 5 01/27/20 24 10:54 AM EDT documented as of this encounter Care Teams Warp Tension Tester Relationship Specialty Start Date End Date Adal Terrell MD [address] [place] [address] PCP - General Internal Medicine 03/08/14 documented as of this encounter
--- OUTSIDE RECORDS SUMMARY | 2024-11-05 14:49 | XMS_ITS | Encounter Summary ---
Author Organization [employer] Address [address] [place] [address] Care Team Providers Care Natural History Collections Curator Name Role Phone Adal Terrell MD Primary Care Provide r Reason for Visit * Reason Onset Date Comments Med Refill 10/08/2024 Encounter Details Date Type Department Care Team ([facility] Contact Info) Description 10/08/2024 Telephone [facility] MEDICINE [address] [place] [address] Adal Terrell MD [address] [place] [address] Med Refill Social History Tobacco Use Types [...] immediate release tablet To be sent to: [id number] [address] [place] [address] documented in this encounter Plan of Treatment Upcoming Encounters Date Type Department Care Team (Late st Contact Info) Description 11/29/2024 2:00 PM EDT Telemedicine [facility] CHC MED & PEDS [address] [place] [address] Marci Kennedy, YANET 505 [place] [address] 12/14/2024 1:15 PM EDT Office Visit [facility] MEDICINE [address] [place] [address] Adal Terrell MD [address] [place] [address] documented as of this encounter Visit Diagnoses Not on filedocumented in this encounter Additional Health Concerns Assessment Noted Time PHQ-9 Depression Total Score: 5 01/27/20 24 10:54 AM EDT documented as of this encounter Care Teams Natural History Collections Curator Relationship Specialty Start Date End Date Adal Terrell MD [address] [place] [address] PCP - General Internal Medicine 03/08/14 documented as of this encounter
--- OUTSIDE RECORDS SUMMARY | 2024-11-05 14:49 | XMS_ITS | Encounter Summary ---
Author Organization [employer] Address [address] [place] [address] Care Team Providers Care Front Desk Clerk Name Role Phone Adal Terrell MD Primary Care Provide r Reason for Visit * Reason Onset Date Comments Letter for School/Work 10/20/2024 Durable Medical Equipment 10/20/2024 Encounter Details Date Type Department Care Team ([facility] Contact Info) Description 10/20/2024 Telephone [facility] MEDICINE [address] [place], [place] [phone] Adal Terrell MD [address] [place] [address] Letter for School/Work; Durable Medical Equipment Social [...] advised thatmanolo can always go to the [facility] for ongoing sciatic pain and pain in [...] come have a record. RN educated on [facility] Walk In and hours of operation. Pt [...] any other provider, declined to go to [facility] for ongoing CTS pain. Sheasked for bilateral [...] any other provider, declined to go to [facility] for ongoing CTS pain. Sheasked for bilateral [...] go into school Wednesday 10/18 and 10/20. Consumer Marketing Analyst offered patient to be triaged and advised need to be evaluated in order to get letter. Pt declined. Pt stated has these DX and provider just needs to write a letter. documented in this encounter Plan of Treatment Upcoming Encounters Date Type Department Care Team (Late st Contact Info) Description 11/29/2024 2:00 PM EDT Telemedicine [facility] CH[facility] MED & PEDS [address] [place] [address] Marci Kennedy, YANET [address] [place] [address] 12/14/2024 1:15 PM EDT Office Visit [facility] MEDICINE [address] [place] [address] Adal Terrell MD [address] [place] [address] documented as of this encounter Visit Diagnoses Not on filedocumented in this encounter Additional Health Concerns Assessment Noted Time PHQ-9 Depression Total Score: 5 01/27/20 24 10:54 AM EDT documented as of this encounter Care Teams Front Desk Clerk Relationship Specialty Start Date End Date Adal Terrell MD [address] [place] [address] PCP - General Internal Medicine 03/08/14 documented as of this encounter
--- OUTSIDE RECORDS SUMMARY | 2024-11-05 14:49 | XMS_ITS | Encounter Summary ---
Author Organization [employer] Address [address] [place] [address] Care Team Providers Care Lab Analyst Name Role Phone Adal Terrell MD Primary Care Provide r Reason for Visit * Reason Comments Med Refill Encounter Details Date Type Department Care Team ([facility] st Contact Info) Description 04/05/2024 Refill [facility] MEDICINE [address] [place] [address] Ronel Thomas, ANP [address] [place] [address] COVID-19 Social History Tobacco Use Types Packs/Day [...] [facility] [address] [place] [address] Marci Kennedy, YANET 505 [place] [address] 12/14/2024 1:15 PM EDT Office Visit [facility] MEDICINE [address] [place] [address] Adal Terrell MD [address] [place] [address] documented as of this encounter Visit Diagnoses Diagnosis COVID-19 documented in this encounter Additional Health Concerns Assessment Noted Time PHQ-9 Depression Total Score: 5 01/27/20 24 10:54 AM EDT documented as of this encounter Care Teams Lab Analyst Relationship Specialty Start Date End Date Adal Terrell MD [address] [place] [address] PCP - General Internal Medicine 03/08/14 documented as of this encounter
--- OUTSIDE RECORDS SUMMARY | 2024-11-05 14:49 | XMS_ITS | Encounter Summary ---
Author Organization [employer] Address [address] [place] [address] Care Team Providers Care Escrow Secretary Name Role Phone Adal Terrell MD Primary Care Provide r Reason for Visit * Reason Onset Date Comments Appointment Request 03/19/2023 Encounter Details Date Type Department Care Team ([facility] st Contact Info) Description 03/19/2023 Telephone [facility] MEDICINE [address] [place] [phone] Adal Terrell MD [address] [place] [address] Appointment Request Social History Tobacco Use Types [...] EDT Tc from pt requesting to r/s PIECE GOODS PACKER visit on 03/21/2023 @ 11:30 am. Pt states due to an emergency she has to fly out to [place] and won't be back in two weeks. Please contact pt at [phone] documented in this encounter Plan of Treatment Upcoming Encounters Date Type Department Care Team (Late st Contact Info) Description 11/29/2024 2:00 PM EDT Telemedicine [facility] CH[facility] MED & PEDS 505 [place] [address] Marci Kennedy, RN [address] [place] [address] 12/14/2024 1:15 PM EDT Office Visit [facility] MEDICINE 230 [place] [address] Adal Terrell MD [address] [place] [address] documented as of this encounter Visit Diagnoses Not on filedocumented in this encounter Additional Health Concerns Assessment Noted Time PHQ-9 Depression Total Score: 0 09/10/19 11:00 AM EST documented as of this encounter Care Teams Escrow Secretary Relationship Specialty Start Date End Date Adal Terrell MD [address] [place] [address] PCP - General Internal Medicine 03/08/14 documented as of this encounter
--- OUTSIDE RECORDS SUMMARY | 2024-11-05 14:49 | XMS_ITS | Encounter Summary ---
Author Organization [employer] Address [address] [facility] 7t [place] [address] Care Team Providers Care Bankman Name Role Phone Adal Terrell MD Primary Care Provide r Reason for Visit * Reason Onset Date Comments Med Refill 01/02/2023 Encounter Details Date Type Department Care Team ([facility] st Contact Info) Description 01/02/2023 Telephone [facility] MEDICINE [address] [place] [address] [phone] Adal Terrell MD [address] [place] [address] Med Refill Social History Tobacco Use Types [...] 11/29/2024 2:00 PM EDT Telemedicine [facility] MED & PEDS 505 [place] [address] Marci Kennedy, RN 505 [place] [address] 12/14/2024 1:15 PM EDT Office Visit [facility] MEDICINE 230 [place] [address] Adal Terrell MD [address] [place] [address] documented as of this encounter Visit Diagnoses Not on filedocumented in this encounter Additional Health Concerns Assessment Noted Time PHQ-9 Depression Total Score: 0 09/10/19 23 11:00 AM EST documented as of this encounter Care Teams Bankman Relationship Specialty Start Date End Date Adal Terrell MD [address] [place] [address] PCP - General Internal Medicine 03/08/14 documented as of this encounter
--- OUTSIDE RECORDS SUMMARY | 2024-11-05 14:49 | XMS_ITS | Encounter Summary ---
Author Organization [employer] Address [address] 7t [place] [address] Care Team Providers Care Medical Assistant Float Name Role Phone Adal Terrell MD Primary Care Provide r Encounter Details Date Type Department Care Team (Late st Contact Info) Description 02/16/2024 Orders Only [facility] MEDICINE 230 [place], [place] [phone] Provider, MD Tong Social History Tobacco Use [...] 11/29/2024 2:00 PM EDT Telemedicine [facility] MED & PEDS 505 [place] [address] Marci Kennedy, YANET 505 [place] [address] 12/14/2024 1:15 PM EDT Office Visit [facility] MEDICINE 230 [place] [address] Adal Terrell MD 230 [place] [address] documented as of this encounter Procedures Procedure [...] as of this encounter Care Teams Medical Assistant Float Relationship Specialty Start Date End Date Adal Terrell MD 230 [place] [address] PCP - General Internal Medicine 03/08/14 documented as of this encounter
--- OUTSIDE RECORDS SUMMARY | 2024-11-05 14:49 | XMS_ITS | Encounter Summary ---
Author Organization [employer] Address [address] 7t [place] [address] Care Team Providers Care Truck Hop Name Role Phone Adal Terrell MD Primary Care Provide r Reason for Visit * Reason Onset Date Comments Nurse Triage 03/05/2024 Encounter Details Date Type Department Care Team ([facility] st Contact Info) Description 03/05/2024 Telephone [facility] MEDICINE 230 [place], [place] [phone] Adal Terrell MD 230 [place] [address] Nurse Triage Social History Tobacco Use Types [...] Info) Description 11/29/2024 2:00 PM EDT Telemedicine [facility] CHC MED & PEDS 505 [place] [address] Marci Kennedy, RN 505 [place] [address] 12/14/2024 1:15 PM EDT Office Visit [facility] MEDICINE 230 [place] [address] Adal Terrell MD 230 [place] [address] documented as of this encounter Visit Diagnoses Not on filedocumented in this encounter Additional Health Concerns Assessment Noted Time PHQ-9 Depression Total Score: 5 01/27/20 24 10:54 AM EDT documented as of this encounter Care Teams Truck Hop Relationship Specialty Start Date End Date Adal Terrell MD 230 [place] [address] PCP - General Internal Medicine 03/08/14 documented as of this encounter
--- OUTSIDE RECORDS SUMMARY | 2024-11-05 14:49 | XMS_ITS | Encounter Summary ---
Author Organization [employer] Address [address] 7t [place] [address] Care Team Providers Care Easement Worker Name Role Phone Adal Terrell MD Primary Care Provide r Encounter Details Date Type Department Care Team ([facility] st Contact Info) Description 02/05/2024 Orders Only [facility] MEDICINE 230 [place] [address] Adal Terrell MD 230 [place] [address] Social History Tobacco Use Types Packs/Day Years [...] Info) Description 11/29/2024 2:00 PM EDT Telemedicine [facility] CHC MED & PEDS 505 [place] [address] Marci Kennedy, RN 505 [place] [address] 12/14/2024 1:15 PM EDT Office Visit [facility] MEDICINE 230 [place] [address] Adal Terrell MD 230 [place] [address] documented as of this encounter Procedures Procedure [...] documented as of this encounter Care Teams Easement Worker Relationship Specialty Start Date End Date Adal Terrell MD 230 [place] [address] PCP - General Internal Medicine 03/08/14 documented as of this encounter
--- OUTSIDE RECORDS SUMMARY | 2024-11-05 14:49 | XMS_ITS | Encounter Summary ---
Author Organization [employer] Address [address] 7t [place] [address] Care Team Providers Care Grill Associate Name Role Phone Adal Terrell MD Primary Care Provide r Reason for Visit * Reason Comments Med Refill Encounter Details Date Type Department Care Team ([facility] st Contact Info) Description 07/23/2023 Refill [facility] MEDICINE 230 [place], [place] [phone] Adal Terrell MD 230 [place], [place] [phone] Chronic right-sided low back pain with right-sided [...] 11/29/2024 2:00 PM EDT Telemedicine [facility] CHC MED & PEDS 505 [place] [address] Marci Kennedy, RN 505 [place] [address] 12/14/2024 1:15 PM EDT Office Visit [facility] MEDICINE 230 [place] [address] Adal Terrell MD 230 [place] [address] documented as of this encounter Visit Diagnoses Diagnosis 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
--- OUTSIDE RECORDS SUMMARY | 2024-11-05 14:50 | XMS_ITS | Encounter Summary ---
Author Organization [employer] Address [address] 7t [place] [address] Care Team Providers Care Mold Mechanic Name Role Phone Adal Terrell MD Primary Care Provide r Encounter Details Date Type Department Care Team (Late st Contact Info) Description 11/05/2024 Orders Only [facility] CHC MED & PEDS [address] [place], [place] [phone] Provider, MD Tong Social History Tobacco Use [...] Info) Description 11/29/2024 2:00 PM EDT Telemedicine [facility] CHC MED & PEDS 505 [place], [place] [phone] Marci Kennedy RN 505 [place], [place] [phone] 12/14/2024 1:15 PM EDT Office Visit [facility] MEDICINE 230 [place] [address] Adal Terrell MD 230 [place], [place] [phone] documented as of this encounter Procedures Procedure Name Priority Date/Time Associated Diagnosis Comments COLONOSCOPY Routine 11/02/2024 9:48 AM EDT documented in this encounter Results * Hm Colonoscopy (11/02/2024 9:48 AM EDT) Colonoscopy Normal Normal Narrative Vish Longoba - 11/02/2024 9:48 AM EDT See external hospital admission note on 11/02/2024 . Repeat in 6-12 months due to poor prep us Historical Provider HEALTH MAINTENANCE Edited Result - Final documented in this encounter Visit Diagnoses Not on filedocumented in this encounter Additional Health Concerns Assessment Noted Time PHQ-9 Depression Total Score: 5 01/27/20 24 10:54 AM EDT documented as of this encounter Care Teams Mold Mechanic Relationship Specialty Start Date End Date Adal Terrell MD 230 [facility] [place] [address] PCP - General Internal Medicine 03/08/14 documented as of this encounter
--- OUTSIDE RECORDS SUMMARY | 2024-11-05 14:50 | XMS_ITS | Encounter Summary ---
Author Organization [employer] Address [address] 7t [place] [address] Care Team Providers Care Diamond Sizer And Grader Name Role Phone Adal Terrell MD Primary Care Provide r Encounter Details Date Type Department Care Team (Late st Contact Info) Description 11/02/2024 Orders Only GENERIC EXTERNAL DATA DEPARTMENT [...] Description 11/29/2024 2:00 PM EDT Telemedicine [facility] CHC MED & PEDS 505 [place], [place] [phone] Marci Kennedy, YANET 505 [place], [place] [phone] 12/14/2024 1:15 PM EDT Office Visit [facility] MEDICINE 230 [place] [address] Adal Terrell MD 230 [place] [address] documented as of this encounter Procedures Procedure Name Priority Date/Time Associated Diagnosis Comments HEMATOXYLIN AND EOSIN STAIN Routine 11/02/2024 8:23 AM EDT documented in this encounter Results * Hematoxylin and Eosin Stain (11/02/2024 8:23 AM EDT) 11/02/2024 8:23 AM EDT 11/02/2024 9:54 AM EDT [facility] - 11/04/2024 7:14 PM EDT ----- ------- Name: Nisa Hall ?Age/Sex: 48/F ? : 1975 Unit#: [id number] ?? Attend Dr: Vee Marques MD ?Re11/02/24 ?Status: DEP SDC ? Location: HO.SSS ?Disch: ? ----- ------- SPEC : [id number] ? RECD: 11/02/24-953 ? STATUS: ??SOUT ? REQ NUM: [id number] ? JAMES: 11/02/24-822 ? SUBM DR: Vee Marques MD ? ENTERED: ??11/02/24-6 ?SP TYPE: Surgical ? OTHR DR: Adal Alves MD ?? ORDERED: ??HE Stain/18, Gross Micro L4/6, IHC/2, Special st. 2, H. pylori/2, AB/PAS ? COMMENTS: Block C sent to [facility] for Gastrin IHC on 11/04/24. ? Diagnosis [...] Hall ?Age/Sex: 48/F ? : 1975 Unit#: [id number] ?? Attend Dr: Vee Marques MD ?Re11/02/24 ?Status: DEP SDC ? Location: HO.SSS ?Disch: ? ----- ------- SPEC : [id number] ? RECD: 11/02/24-953 ? STATUS: ??SOUT ? REQ NUM: [id number] ? JAMES: 11/02/24-822 ? SUBM DR: Vee Marques MD ? ENTERED: ??11/02/24-1005 ?SP TYPE: Surgical ? OTHR DR: Adal Alves MD ?? ORDERED: ??HE Stain/18, Gross Micro L4/6, IHC/2, Special st. 2, H. pylori/2, AB/PAS ? COMMENTS: Block C sent to [facility] for Gastrin IHC on 11/04/24. ? Gross [...] CEDS Special studies ordered and performed at [facility]: Immunostain for H. pylori on B1; AB/PAS stain on C1. Special studies ordered and performed at [facility]: Immunostain for gastrin on C1. Copies To: ?? Adal Alves MD ?? [facility] ?? [address] ?? [place] ?? [phone] ?? Vee Marques MD ?? [facility] ?? [address] ?? [place] [address] ?? [phone] ?? [email or web address] ? CONTINUED ON NEXT PAGE ----- ------- Name: Nisa Hall ?Age/Sex: 48/F ? : 1975 Unit#: [id number] ?? Attend Dr: Vee Marques MD ?Re11/02/24 ?Status: DEP SDC ? Location: HO.SSS ?Disch: ? ----- ------- SPEC : [id number] ? RECD: 11/02/24 ? STATUS: ??SOUT ? REQ NUM: [id number] ? JAMES: 11/02/24-822 ? SUBM DR: Vee Marques MD ? ENTERED: ??11/02/24-1005 ?SP TYPE: Surgical ? OTHR DR: Adal Alves MD ?? ORDERED: ??HE Stain/18, Gross Micro L4/6, IHC/2, Special st. 2, H. pylori/2, AB/PAS ? COMMENTS: Block C sent to [facility] for Gastrin IHC on 11/04/24. ? ----- ------- Signed (signature on file) Gisella Celso 11/04/241913 ? ----- ------- ? END OF REPORT ? us Generic External Data Provider LAB BLOOD ORDERAB LES Final Result [facility] [address] [place] [address] [phone] documented in this encounter Visit Diagnoses Not on filedocumented in this encounter Additional Health Concerns Assessment Noted Time PHQ-9 Depression Total Score: 5 01/27/20 24 10:54 AM EDT documented as of this encounter Care Teams Diamond Sizer And Grader Relationship Specialty Start Date End Date Adal Terrell MD [address] [place] [address] PCP - General Internal Medicine 03/08/14 documented as of this encounter
--- OUTSIDE RECORDS SUMMARY | 2024-11-05 14:50 | XMS_ITS | Clinical Summary ---
Author Organization [facility] Address [address] [place] [address] Care Team Providers Care Chief Customer Officer Name Role Phone Unavailable Primary Care Provider [...]
[2024-11-05 15:37] LABS: Hematocrit 38.2 % (37.0-47.0); Hemoglobin 12.9 g/dl (12.0-16.0); Mean Corpuscular HGB Conc 33.8 g/dl (31.0-35.0); Mean Corpuscular Hemoglobin 28.2 pg (27.0-33.0); Mean Corpuscular Volume 83.6 fL (80.0-98.0); Mean Platelet Volume 9.4 fL (9.4-12.3); Platelet Count 352 X10*3/uL (160-400); Red Blood Count 4.57 X10*6/uL (4.20-5.50); Red Cell Distribution Width 15.6 % (11.0-16.0); White Blood Count 14.9 X10*3/uL (4.8-10.8)
[2024-11-05 16:07] LABS: Iron 35 mcg/dL (30-160); Percent Iron Saturation 12 % (15-50); Total Iron Binding Capacity 302 mcg/dL (228-428); Unsaturated Iron Binding 267 ug/dL
[2024-11-05 16:21] LABS: Ferritin 134 ng/mL (10-250)
== END 2024-11-05 14:33 | disposition home or self-care (01) ==
LOC: HO.LAB 14:32
PROVIDERS: PCP Internal Medicine; Visit Provider Internal Medicine
DX: G47.61 Periodic limb movement disorder (principal)
CPT/HCPCS: 36415; 82728; 83540; 85027

== ENCOUNTER 2024-11-16 15:07 | Outpatient (REF) | payer MEDICAID, SELFPAY ==
[2024-11-16 15:48] LABS: Appearance Urine Clear; Color Urine Yellow; Glucose Urine UA Negative (Negative); Leukocyte Esterase Urine Negative (Negative); Nitrite Urine Negative (Negative); PH 6.5 (5.0-9.0); Urine Blood Negative (Negative); Urine Ketones Negative (Negative); Urine Protein Negative (Neg-Trace)
[2024-11-16 15:53] LABS: Bacteria Urine None Seen (None Seen); Hyaline Casts Urine 0-2 /LPF (0-2); RBC Urine 0-2 /HPF (0-2); Squamous Epithelial Cell Urine 0-2 /HPF (0-2); WBC Urine 0-5 /HPF (0-5)
--- OUTSIDE RECORDS SUMMARY | 2024-11-16 18:03 | XMS_ITS | Encounter Summary ---
Author Organization [employer] Address [address] 7[address] [place] [address] Care Team Providers Care Oxygen Equipment Preparer Name Role Phone Adal Terrell MD Primary Care Provide r Reason for Visit * Reason Onset Date Comments Appointment Request 03/19/2023 Encounter Details Date Type Department Care Team ([facility] st Contact Info) Description 03/19/2023 Telephone [facility] MEDICINE [address] [place] [address] [phone] Adal Terrell MD 230 [place] [address] Appointment Request Social History Tobacco Use Types [...] EDT Tc from pt requesting to r/s FIELD RESEARCH ASSISTANT visit on 03/21/2023 @ 11:30 am. Pt states due to an emergency she has to fly out to [place] and won't be back in two weeks. Please contact pt at [phone] documented in this encounter Plan of Treatment Upcoming Encounters Date Type Department Care Team (Late st Contact Info) Description 11/29/2024 2:00 PM EDT Telemedicine [facility] CHC MED & PEDS 505 [place] [address] Marci Kennedy, RN 505 [place] [address] 12/14/2024 1:15 PM EDT Office Visit [facility] MEDICINE 230 [place] [address] Adal Terrell MD [address] [place] [address] documented as of this encounter Visit Diagnoses Not on filedocumented in this encounter Additional Health Concerns Assessment Noted Time PHQ-9 Depression Total Score: 0 09/10/19 11:00 AM EST documented as of this encounter Care Teams Oxygen Equipment Preparer Relationship Specialty Start Date End Date Adal Terrell MD [address] [place] [address] PCP - General Internal Medicine 03/08/14 documented as of this encounter
--- OUTSIDE RECORDS SUMMARY | 2024-11-16 18:03 | XMS_ITS | Encounter Summary ---
Author Organization [employer] Address [address] 7t [place] [address] Care Team Providers Care Director Of Marketing Operations Name Role Phone Adal Terrell MD Primary Care Provide r Reason for Visit * Reason Onset Date Comments Med Refill 11/08/2024 Encounter Details Date Type Department Care Team ([facility] Contact Info) Description 11/08/2024 Telephone [facility] MEDICINE 230 [place] [address] Adal Terrell MD 230 [place] [address] Med Refill Social History Tobacco Use Types [...] * Telephone Encounter - Hazel Larose - 11/08/2024 10:22 AM EDT TC from pt requesting medication refill. Medications needing refill : oxyCODONE (Roxicodone) 5 MG immediate release tablet To be sent to: [id number] [place], [place] - [address] [facility] documented in this encounter Plan of Treatment Upcoming Encounters Date Type Department Care Team (Late st Contact Info) Description 11/29/2024 2:00 PM EDT Telemedicine [facility] CHC MED & PEDS 505 [place] [address] Marci Kennedy RN 505 [place] [address] 12/14/2024 1:15 PM EDT Office Visit [facility] MEDICINE 230 [place], [place] [phone] Adal Terrell MD 230 [place] [address] documented as of this encounter Visit Diagnoses Not on filedocumented in this encounter Additional Health Concerns Assessment Noted Time PHQ-9 Depression Total Score: 5 01/27/20 24 10:54 AM EDT documented as of this encounter Care Teams Director Of Marketing Operations Relationship Specialty Start Date End Date Adal Terrell MD [address] [place] [address] PCP - General Internal Medicine 03/08/14 documented as of this encounter
--- OUTSIDE RECORDS SUMMARY | 2024-11-16 18:03 | XMS_ITS | Encounter Summary ---
Author Organization [employer] Address [address] 7t [place] [address] Care Team Providers Care Lithographic General Worker Name Role Phone Adal Terrell MD Primary Care Provide r Encounter Details Date Type Department Care Team ([facility] st Contact Info) Description 11/09/2024 Telephone [facility] MEDICINE 230 [place] [address] Adal Terrell MD 230 [place] [address] Social History Tobacco Use Types Packs/Day Years [...] Upcoming Encounters Date Type Department Care Team ([facility] st Contact Info) Description 11/29/2024 2:00 PM EDT Telemedicine [facility] MED & PEDS 505 [place] [address] Marci Kennedy RN 505 [place] [address] 12/14/2024 1:15 PM EDT Office Visit [facility] MEDICINE 230 [place] [address] Adal Terrell MD [address] [place] [address] documented as of this encounter Visit Diagnoses Not on filedocumented in this encounter Additional Health Concerns Assessment Noted Time PHQ-9 Depression Total Score: 5 01/27/20 24 10:54 AM EDT documented as of this encounter Care Teams Lithographic General Worker Relationship Specialty Start Date End Date Adal Terrell MD 230 [place] [address] PCP - General Internal Medicine 03/08/14 documented as of this encounter
--- OUTSIDE RECORDS SUMMARY | 2024-11-16 18:03 | XMS_ITS | Encounter Summary ---
Author Organization [employer] Address [address] 7t [place] [address] Care Team Providers Care Computer Consultant Name Role Phone Adal Terrell MD Primary Care Provide r Reason for Visit * Reason Onset Date Comments Results 11/05/2024 Encounter Details Date Type Department Care Team ([facility] Contact Info) Description 11/05/2024 Telephone [facility] MEDICINE 230 [place], [place] [phone] Adal Terrell MD 230 [place] [address] Results Social History Tobacco Use Types Packs/Day [...] Telephone Encounter - Gabriela Morrison RN - 11/12/2024 1:09 PM EDT TC placed to pt to inform that PCP placed an order for a urine culture. Pt advised that this can bedone either at the clinic or at [facility]. Pt states that she will have this done at [facility] after school today. Pt also wanted to note that she is still awaiting a response on the requested wrist splints. Pt requested these for her carpal tunnel syndrome. (See encounters from both 10/25 and 10/27 for more detail) Pt is currently in school and states that she is finding it very difficult to write and handle textbooks with this ongoing discomfort. Pt advised that this will be forwarded to PCP for review and advisement. * Telephone Encounter - Gabriela Morrison RN - 11/10/2024 9:13 AM EDT TC placed to pt to inform that PCP has reviewed the pt most recent lab results showing an elevated white blood cell count. The pt did know that she had elevated WBC counts in the past and denied any known symptoms of an active infection. Pt denied any known fever, chills, fatigue or URI symptoms. The only primary symptom the pt has noticed has been some abdominal distention. Pt advised that the provider would like to do repeat labs to check on these levels before next office appt on 12/14/2024. PT also give [facility] advisement for abdominal distention/discomfort symptoms but the pt would like to see if PCP could order a urine culture to rule out a UTI. Pt advised that this information will be sent to PCP for review and advisement. * Telephone Encounter - Gabriela Morrison RN - 11/09/2024 3:07 PM EDT TC placed to pt to advise again to follow up with [facility] regarding lab results from 11/05/2024. Pt had called in looking for PCP to comment on the results. RN advised that the results were forwarded to PCP but that she should still consult with the ordering provider and [facility] to comment on the results. Pt also informed that the documentation needed for school is on PCP desk for signature and should be signed by the end of day. Pt agreeable to this information and was appreciative of the call. * Telephone Encounter - Fabiana Hardwick - 11/09/2024 2:40 PM EDT Tc from pt requesting a call back regarding message prior Pt also inquiring form drop off at medical record. Pt stated that she received call from nurse regarding forms. * Telephone Encounter - Gabriela Morrison RN - 11/08/2024 12:27 PM EDT TC from pt who had concerns with recent blood work results for both the Iron and CBC panel that wasdone on 11/05/2024. Pt states that these were ordered by [facility] and she has followed up with them but the ordering provider was not in the office today. Pt requested that PCP look over the results forthe iron saturation and white blood cell count. Pt advised that PCP is in the office on Tuesdays and but a message will be forwarded to have the labs reviewed. Pt agreeable to this plan andhad no further questions or concerns. * Telephone Encounter - Gabriela Morrison RN - 11/08/2024 11:39 AM EDT TC placed to pt and LVM to call back the office regarding lab results * Telephone Encounter - Hazel Larose - 11/08/2024 10:19 AM EDT Tc from pt returning call. States has concern regarding labs. * Telephone Encounter - Tanya Solano - 11/05/2024 4:18 PM EDT TC from pt requesting call back regarding Results. Type of results: Iron And Total Iron Binding Capacity, CBC Date when done: 11/05 Facility: [facility] documented in this encounter Plan of Treatment Upcoming Encounters Date Type Department Care Team (Late st Contact Info) Description 11/29/2024 2:00 PM EDT Telemedicine [facility] CHC MED & PEDS 505 [place] [address] Marci Kennedy RN 505 [place] [address] 12/14/2024 1:15 PM EDT Office Visit [facility] MEDICINE 230 [place] [address] Adal Terrell MD 230 [place] [address] documented as of this encounter Visit Diagnoses Not on filedocumented in this encounter Additional Health Concerns Assessment Noted Time PHQ-9 Depression Total Score: 5 01/27/20 24 10:54 AM EDT documented as of this encounter Care Teams Computer Consultant Relationship Specialty Start Date End Date Adal Terrell MD 230 [place] [address] PCP - General Internal Medicine 03/08/14 documented as of this encounter
--- OUTSIDE RECORDS SUMMARY | 2024-11-16 18:04 | XMS_ITS | Encounter Summary ---
Author Organization [employer] Address [address] 7t [place] [address] Care Team Providers Care Copper Miner Blasting Name Role Phone Adal Terrell MD Primary Care Provide r Reason for Visit * Reason Comments Med Refill Encounter Details Date Type Department Care Team ([facility] st Contact Info) Description 04/05/2024 Refill [facility] MEDICINE 230 [place] [address] Ronel Thomas, ANP 230 [place] [address] COVID-19 Social History Tobacco Use Types Packs/Day [...] Info) Description 11/29/2024 2:00 PM EDT Telemedicine [facility] MED & PEDS 505 [place] [address] Marci Kennedy, YANET 505 [place] [address] 12/14/2024 1:15 PM EDT Office Visit [facility] MEDICINE 230 [place] [address] Adal Terrell MD [address] [place] [address] documented as of this encounter Visit Diagnoses Diagnosis COVID-19 documented in this encounter Additional Health Concerns Assessment Noted Time PHQ-9 Depression Total Score: 5 01/27/20 24 10:54 AM EDT documented as of this encounter Care Teams Copper Miner Blasting Relationship Specialty Start Date End Date Adal Terrell MD 230 [place] [address] PCP - General Internal Medicine 03/08/14 documented as of this encounter
--- OUTSIDE RECORDS SUMMARY | 2024-11-16 18:04 | XMS_ITS | Encounter Summary ---
Author Organization [employer] Address [address] 7[address] [place] [address] Care Team Providers Care Block Trimmer Name Role Phone Adal Terrell MD Primary Care Provide r Reason for Visit * Reason Onset Date Comments Med Refill 10/08/2024 Encounter Details Date Type Department Care Team ([facility] Contact Info) Description 10/08/2024 Telephone [facility] MEDICINE 230 [place] [address] Adal Terrell MD 230 [place] [address] Med Refill Social History Tobacco Use Types [...] immediate release tablet To be sent to: [id number] [address] [place] [address] documented in this encounter Plan of Treatment Upcoming Encounters Date Type Department Care Team (Late st Contact Info) Description 11/29/2024 2:00 PM EDT Telemedicine [facility] MED & PEDS 505 [place] [address] Marci Kennedy, YANET 505 [place] [address] 12/14/2024 1:15 PM EDT Office Visit [facility] MEDICINE 230 [place] [address] Adal Terrell MD 230 [place] [address] documented as of this encounter Visit Diagnoses Not on filedocumented in this encounter Additional Health Concerns Assessment Noted Time PHQ-9 Depression Total Score: 5 01/27/20 24 10:54 AM EDT documented as of this encounter Care Teams Block Trimmer Relationship Specialty Start Date End Date Adal Terrell MD 230 [place] [address] PCP - General Internal Medicine 03/08/14 documented as of this encounter
--- OUTSIDE RECORDS SUMMARY | 2024-11-16 18:04 | XMS_ITS | Encounter Summary ---
Author Organization [employer] Address [address] [facility] [address] 7t [place] [address] Care Team Providers Care Label Stamper Name Role Phone Adal Terrell MD Primary Care Provide r Encounter Details Date Type Department Care Team ([facility] st Contact Info) Description 02/05/2024 Orders Only [facility] MEDICINE [address] [place] [address] Adal Terrell MD [address] [place] [address] Social History Tobacco Use Types Packs/Day Years [...] Info) Description 11/29/2024 2:00 PM EDT Telemedicine [facility] CHC MED & PEDS [address] [place] [address] Marci Kennedy, RN 505 [place] [address] 12/14/2024 1:15 PM EDT Office Visit [facility] MEDICINE 230 [place] [address] Adal Terrell MD 230 [place] [address] documented as of this encounter Procedures Procedure [...] documented as of this encounter Care Teams Label Stamper Relationship Specialty Start Date End Date Adal Terrell MD 230 [place] [address] PCP - General Internal Medicine 03/08/14 documented as of this encounter
--- OUTSIDE RECORDS SUMMARY | 2024-11-16 18:04 | XMS_ITS | Encounter Summary ---
Author Organization [employer] Address [address] [facility] [address] [facility] [address] 7t [place] [address] Care Team Providers Care Tea Bag Machine Tender Name Role Phone Adal Terrell MD Primary Care Provide r Reason for Visit * Reason Onset Date Comments Results 08/13/2023 Encounter Details Date Type Department Care Team ([facility] Contact Info) Description 08/13/[address] [facility] MEDICINE 230 [place], [place] [phone] Adal Terrell MD 230 [place], [place] [phone] Results Social History Tobacco Use Types Packs/Day [...] [facility] CHC MED & PEDS 505 [place] [address] Marci Kennedy, RN 505 [place] [address] 12/14/2024 1:15 PM EDT Office Visit [facility] MEDICINE [address] [place] [address] Adal Terrell MD [address] [place] [address] documented as of this encounter Visit Diagnoses Not on filedocumented in this encounter Additional Health Concerns Assessment Noted Time PHQ-9 Depression Total Score: 0 09/10/19 23 11:00 AM EST documented as of this encounter Care Teams Tea Bag Machine Tender Relationship Specialty Start Date End Date Adal Terrell MD 230 [place] [address] PCP - General Internal Medicine 03/08/14 documented as of this encounter
--- OUTSIDE RECORDS SUMMARY | 2024-11-16 18:04 | XMS_ITS | Encounter Summary ---
Author Organization [employer] Address [address] [facility] [address] 7[address] [place] [address] Care Team Providers Care Materials Buyer Name Role Phone Adal Terrell MD Primary Care Provide r Encounter Details Date Type Department Care Team (Late st Contact Info) Description 02/16/2024 Orders Only [facility] MEDICINE 230 [place], [place] [phone] Provider, MD Tong Social History Tobacco Use [...] Description 11/29/2024 2:00 PM EDT Telemedicine [facility] CHC MED & PEDS 505 [place] [address] Marci Kennedy, YANET 505 [place] [address] 12/14/2024 1:15 PM EDT Office Visit [facility] MEDICINE 230 [place] [address] Adal Terrell MD [address] [place] [address] documented as of this encounter Procedures Procedure [...] documented as of this encounter Care Teams Materials Buyer Relationship Specialty Start Date End Date Adal Terrell MD 230 [place] [address] PCP - General Internal Medicine 03/08/14 documented as of this encounter
--- OUTSIDE RECORDS SUMMARY | 2024-11-16 18:04 | XMS_ITS | Clinical Summary ---
Author Organization [facility] it Address [address] [place] [address] Care Team Providers Care Airport Duty Manager Name Role Phone Unavailable Primary Care Provider [...] Documents on File Type Date Recorded Patient Data Entry Technician Expl anation Health Care Decision (hx) 07/06/2020 [...]
--- OUTSIDE RECORDS SUMMARY | 2024-11-16 18:04 | XMS_ITS | Encounter Summary ---
Author Organization [employer] Address [address] [facility] [address] [address] 7[address] [place] [address] Care Team Providers Care Auto Fleet Manager Name Role Phone Adal Terrell MD Primary Care Provide r Encounter Details Date Type Department Care Team ([facility] st Contact Info) Description 10/13/2024 Telephone [facility] MEDICINE 230 [place] [address] Adal Terrell MD 230 [place] [address] Social History Tobacco Use Types Packs/Day Years [...] Upcoming Encounters Date Type Department Care Team ([facility] st Contact Info) Description 11/29/2024 2:00 PM EDT Telemedicine [facility] MED & PEDS 505 [place] [address] Marci Kennedy RN 505 [place] [address] 12/14/2024 1:15 PM EDT Office Visit [facility] MEDICINE 230 [place] [address] Adal Terrell MD 230 [place] [address] documented as of this encounter Visit Diagnoses Not on filedocumented in this encounter Additional Health Concerns Assessment Noted Time PHQ-9 Depression Total Score: 5 01/27/20 24 10:54 AM EDT documented as of this encounter Care Teams Auto Fleet Manager Relationship Specialty Start Date End Date Adal Terrell MD 230 [place] [address] PCP - General Internal Medicine 03/08/14 documented as of this encounter
--- OUTSIDE RECORDS SUMMARY | 2024-11-16 18:04 | XMS_ITS | Encounter Summary ---
Author Organization [employer] Address [address] 7[address] [place] [address] Care Team Providers Care Medical Screener Name Role Phone Adal Terrell MD Primary Care Provide r Encounter Details Date Type Department Care Team ([facility] st Contact Info) Description 11/09/[address] [facility] MEDICINE 230 [place] [address] Adal Terrell MD [address] [place] [address] Social History Tobacco Use Types Packs/Day Years [...] Upcoming Encounters Date Type Department Care Team ([facility] st Contact Info) Description 11/29/2024 2:00 PM EDT Telemedicine [facility] MED & PEDS 505 [place] [address] Marci Kennedy RN 505 [place] [address] 12/14/2024 1:15 PM EDT Office Visit [facility] MEDICINE 230 [place] [address] Adal Terrell MD [address] [place] [address] documented as of this encounter Visit Diagnoses Not on filedocumented in this encounter Additional Health Concerns Assessment Noted Time PHQ-9 Depression Total Score: 5 01/27/20 24 10:54 AM EDT documented as of this encounter Care Teams Medical Screener Relationship Specialty Start Date End Date Adal Terrell MD 230 [place] [address] PCP - General Internal Medicine 03/08/14 documented as of this encounter
--- OUTSIDE RECORDS SUMMARY | 2024-11-16 18:04 | XMS_ITS | Encounter Summary ---
Author Organization [employer] Address [address] [facility] [address] 7[address] [place] [address] Care Team Providers Care Inspector And Tester Name Role Phone Adal Terrell MD Primary Care Provide r Reason for Visit * Reason Onset Date Comments Durable Medical Equipment 11/16/2024 Encounter Details Date Type Department Care Team ([facility] st Contact Info) Description 11/16/2024 Telephone [facility] MEDICINE 230 [place], [place] [phone] Adal Terrell MD 230 [place] [address] Durable Medical Equipment Social History Tobacco Use [...] Telephone Encounter - Britney Arzate [place] - 11/16/2024 1:18 PM EDT Received a request for Bilateral Cock- Up Wrist Splints due to pt experiencing Mild bilateral median neuropathy across carpal tunnel; Mild left ulnar neuropathy across cubital tunnel, which was foundin her EMG/NCS. Will send out script for wrist splints once pcp adds Dx of mild carpal tunnel to pt's chart in order for [facility] to complete script with the correct Dx. LB documented in this encounter Plan of Treatment Upcoming Encounters Date Type Department Care Team (Late st Contact Info) Description 11/29/2024 2:00 PM EDT Telemedicine [facility] CHC MED & PEDS 505 [place] [address] Marci Kennedy, YANET [address] [place] [address] 12/14/2024 1:15 PM EDT Office Visit [facility] MEDICINE [address] [place] [address] Adal Terrell MD [address] [place] [address] documented as of this encounter Visit Diagnoses Not on filedocumented in this encounter Additional Health Concerns Assessment Noted Time PHQ-9 Depression Total Score: 5 01/27/20 24 10:54 AM EDT documented as of this encounter Care Teams Inspector And Tester Relationship Specialty Start Date End Date Adal Terrell MD [address] [place] [address] PCP - General Internal Medicine 03/08/14 documented as of this encounter
--- OUTSIDE RECORDS SUMMARY | 2024-11-16 18:04 | XMS_ITS | Encounter Summary ---
Author Organization [employer] Address [address] [facility] 7[address] [place] [address] Care Team Providers Care Traffic Personnel Supervisor Name Role Phone Adal Terrell MD Primary Care Provide r Reason for Referral * Consultation (Routine) - Closed Specialty Diagnoses / Procedures Referred By Ruth chaidez Referred To Contact Diagnoses Preventative health care Adal Terrell MD [address] [place] [address] Phone: tel: fax: [facility] [address] [place] [address] Phone: tel: fax: Referral ID Status Reason Start Date Expiration Date V isits Requested Visits Authorized [id number] Closed Specialty Services Required 09/22/2024 09/22/2025 12 12 * Neurology (Routine) - Closed Specialty Diagnoses / Procedures Referred By Ruth chaidez Referred To Contact Diagnoses Pain in both wrists Procedures Nerve conduction test Adal Terrell MD [address] [place] [address] Phone: tel: fax: [facility] [address] [place] [address] Phone: tel: fax: Referral ID Status Reason Start Date Expiration Date Visits Re quested Visits Authorized [id number] Closed 09/09/2024 09/09/2025 1 1 Reason for Visit [...] Description 09/09/2024 3:00 PM EST Office Visit [facility] MEDICINE [address] [place] [address] Adal Terrell MD [address] [place] [address] YUNG (obstructive sleep apnea) (Primary Dx); Irritable bowel syndrome with diarrhea; Gastroesophageal reflux disease with esophagitis without hemorrhage; Moderate persistent asthma without complication; Pain in both wrists; Preventative health care; Bilateral carpal tunnel syndrome Social History Tobacco Use Types Packs/Day Years [...] your housing situation today? I have amada mayito 01/27/[address] you li [...] t he electric, gas, oil or water [employer] threatened to shut off services in your [...] PM EST SUBJECTIVE Nisa Hall is a 49 y.o. female who presents for Follow-up (Forgetfulness; [...] patient was supposed to start APAP at [id number]. She was seen by Neurology/sleep 07/29/2024 who recommended to use Cpap and follow up with them in 3 months Relevant Orders Comprehensive Metabolic Panel (Completed) Lipid Panel, Standard (Completed) TSH with Reflex to Free T4 (Completed) Irritable bowel syndrome with diarrhea Under the care of Gastroenterology, last seen 09/01/2024. She was recommended EGD/[place] Relevant Orders Comprehensive Metabolic Panel (Completed) Lipid Panel, Standard (Completed) TSH with Reflex to Free T4 (Completed) Gastroesophageal reflux disease with esophagitis without hemorrhage [...] PRN Pt evaluated in the past by [facility] Pulmonology, In May 2018 pt had [...] Referred for a repeat Colonoscopy: 2019 at [facility] Relevant Orders Referral to Gynecology Bilateral carpal tunnel syndrome 11/16/2024 EMG 10/12/2024 showed: IMPRESSION: 1. Mild bilateral median neuropathy across carpal tunnel. 2. Mild left ulnar neuropathy across cubital tunnel. documented in this encounter Miscellaneous Notes * Assessment & Plan Note - Adal Mccarthy MD - 11/16/2024 3:48 PM EDT Associated Problem(s): Bilateral carpal tunnel syndrome 11/16/2024 EMG 10/12/2024 showed: IMPRESSION: 1. Mild bilateral median neuropathy across carpal tunnel. 2. Mild left ulnar neuropathy across cubital tunnel. * Assessment & Plan Note - Adal [...] Referred for a repeat Colonoscopy: 2019 at [facility] * Addendum Note - Adal Mccarthy [...] PRN Pt evaluated in the past by [facility] Pulmonology, In May 2018 pt had [...] Gastroenterology, last seen 09/01/2024. She was recommended EGD/[place] * Assessment & Plan Note - Adal Mccarthy MD - 09/09/2024 2:47 PM EST Associated Problem(s): YUNG (obstructive sleep apnea) S/p Sleep Study Mild degree of sleep apnea. The AHI was 7/hr and oxygen james was 91%. patient was supposed to start APAP at [id number]. She was seen by Neurology/sleep 07/29/2024 who recommended to use Cpap and follow up with them in 3 months documented in this encounter Plan of Treatment Upcoming Encounters Date Type Department Care Team (Late st Contact Info) Description 11/29/2024 2:[address] [facility] CHC MED & PEDS 505 [place] [address] Marci Kennedy, YANET 505 [place] [address] 12/14/2024 1:15 PM EDT Office Visit [facility] MEDICINE [address] [place] [address] Adal Terrell MD [address] [place] [address] Scheduled Orders Name Type Priority Associated Diagnoses [...] Free T4 2.55 0.32 - 4.0 uIU/mL [facility] Blood Venous blood specimen / Unknown 09/10/2024 11:04 AM EST 09/10/2024 11:04 AM EST us Adal Mccarthy MD LAB BLOOD ORDERABLES Final Result [facility] [address] [place] [phone] * (ABNORMAL) Lipid Panel, Standard (09/10/2024 11:04 AM EST) Triglycerides 91 <150 mg/dL [facility] Comment:Desirable Triglyceri de: less than 150 mg/dLBorderline High Triglyceride 150-199 mg/dLHigh Triglyceride: 200-499 mg/dLVery High Triglyceride: greater than or equal to 5OO mg/dL Cholesterol 155 <200 mg/dL [facility] Comment:Desirable Cholestero l: less than 200 mg/dLBorderline High Cholesterol: 200-239 mg/dLHigh Cholesterol: greater than 239 mg/dL LDL Cholesterol Calculated 108(H) <100 mg/dL [facility] Comment:Desirable LDL: less than 100 [...] Mccarthy MD LAB BLOOD ORDERABLES Final Result [facility] [address] [place] [phone] [phone] * (ABNORMAL) Comprehensive Metabolic Panel (09/10/2024 11:04 AM EST) Sodium 139 135 - 145 mmol/L [facility] Potassium 4.2 3.3 - 5.1 mmol/L [facility] Chloride 105 96 - 108 mmol/L [facility] Carbon Dioxide 27 22 - 29 mmol/L [facility] Anion Gap 11(L) 12 - 20 [facility] Urea Nitrogen (BUN) 9 9 - 16 mg/dL [facility] Creatinine, Serum 0.81 0.5 - 1.4 mg/dL [facility] Estimated Glomerular Filt Rate >60 [facility] Comment:Chronic Kidney Disea se: Estimated GFR < 60 mL/min/1.45l7Osgizz Kidney Disease: Estimated GFR < 15 mL/min/1.73m2 Glucose 101 60 - 115 mg/dL [facility] Calcium 9.2 8.4 - 10.2 mg/dL [facility] Bilirubin, Total 0.3 0.0 - 1.0 mg/dL [facility] Aspartate Amino Transferase 21 5 - 31 U/L [facility] Alanine Aminotransferase 21 0 - 31 U/L [facility] Total Protein 8.1(H) 6.5 - 8.0 g/dL [facility] Albumin Level 4.2 3.5 - 5.0 g/dL [facility] Alkaline Phosphatase 96 39 - 117 U/L [facility] Blood Venous blood specimen / Unknown 09/10/2024 11:04 AM EST 09/10/2024 11:04 AM EST Adal Mccarthy MD LAB BLOOD ORDERABLES Final Result [facility] [address] [place] [address] [phone] documented in this encounter Visit Diagnoses Diagnosis YUNG (obstructive sleep apnea)- Primary Obstructive sleep apnea (adult) (pediatric) Irritable bowel syndrome with diarrhea Irritable bowel syndrome Gastroesophageal reflux disease with esophagitis without hemorrhage Moderate persistent asthma without complication Pain in both wrists Preventative health care Routine general medical examination at a health care facility Bilateral carpal tunnel syndrome Carpal tunnel syndrome documented in this encounter Additional Health Concerns Assessment Noted Time PHQ-9 Depression Total Score: 5 01/27/20 24 10:54 AM EDT documented as of this encounter Care Teams Traffic Personnel Supervisor Relationship Specialty Start Date End Date Adal Terrell MD [address] [place] [phone] PCP - General Internal Medicine 03/08/14 documented as of this encounter
--- OUTSIDE RECORDS SUMMARY | 2024-11-16 18:04 | XMS_ITS | Encounter Summary ---
Author Organization [employer] Address [address] [place] [address] Care Team Providers Care Contact Center Assistant Name Role Phone Adal Terrell MD Primary Care Provide r Reason for Visit * Reason Comments Med Refill Encounter Details Date Type Department Care Team ([facility] st Contact Info) Description 07/23/2023 Refill [facility] MEDICINE [address] [place], [place] [phone] Adal Terrell MD [address] [place], [place] [phone] Chronic right-sided low back pain with right-sided [...] Info) Description 11/29/2024 2:00 PM EDT Telemedicine [facility] CHC MED & PEDS [address] [place] [address] Marci Kennedy, RN 505 [place] [address] 12/14/2024 1:15 PM EDT Office Visit [facility] MEDICINE [address] [place] [address] Adal Terrell MD [address] [place] [address] documented as of this encounter Visit Diagnoses Diagnosis Chronic right-sided low back pain with right-sided sciatica Sacroiliac joint dysfunction Nonallopathic lesion of sacral region, not elsewhere classified documented in this encounter Additional Health Concerns Assessment Noted Time PHQ-9 Depression Total Score: 0 09/10/19 23 11:00 AM EST documented as of this encounter Care Teams Contact Center Assistant Relationship Specialty Start Date End Date Adal Terrell MD [address] [place] [address] PCP - General Internal Medicine 03/08/14 documented as of this encounter
--- OUTSIDE RECORDS SUMMARY | 2024-11-16 18:04 | XMS_ITS | Clinical Summary ---
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 chemotherapeutic agents whose molecularstructures are similar to folate; therefore, the Architectfolate assay cannot be used for patients using these drugs. 09/01/2024 3:07 PM EST 09/01/2024 3:07 PM EST us Generic External Data Provider LAB BLOOD ORDERAB LES Final Result [facility] [address] [place] [phone] * Methylmalonic Acid (09/01/2024 3:07 PM EST) Methylmalonic Acid 103 55 - 335 nmol/L [facility] Comment: Serum methylmalonic acid [...] outcomes,such as neural tube defects and intrauterine growthrestriction.[employer] utilized Multi-Modal Decomposition(MMD) analysis to establish first and second trimester-specific MMA reference intervals in , as givenbelow:MMA, First trimester (<13 wks gestation): 58-167 nmol/LMMA, Second trimester (13-23 wks gestation):63-241 nmol/LThis test was developed and its analytical performancecharacteristics have been determined by [employer]. It has not been cleared or approved by theFDA. This assay has been validated pursuant to the CLIAregulations and is used for clinical purposes.THIS TEST WAS PERFORMED AT:[facility] [place], [place] ??[id number] HUGHES MD,PHD 09/01/2024 3:07 PM EST 09/01/2024 3:07 PM EST us Generic External Data Provider LAB BLOOD ORDERAB LES Final Result [facility] [address] [place] [phone] * Tissue Transglutaminase Antibody, IgA (09/01/2024 3:07 PM EST) [facility] Transglutaminase IgA <1.0 U/mL [facility] Comment:Value Interpretation ----- <15.0 Antibody not detected> or = 15.0 Antibody detectedTHIS TEST WAS PERFORMED AT:[facility] [address] [address]ROQRMZECHARIAH RUCKER MD 09/01/2024 3:07 PM EST 09/01/2024 3:07 PM EST Generic External Data Provider LAB BLOOD ORDERAB LES Final Result Performing Organization Address [facility] Co de Phone Number [facility] [address] [place] [phone] * (ABNORMAL) Immunoglobulins, Quantitative, IgA, IgG, IgM (09/01/2024 3:07 PM EST) [facility] IMMUNOGLOBULIN G 1383 600 - 1640 mg/dL [facility] IMMUNOGLOBULIN A 581(A) 47 - 310 mg/dL [facility] Immunoglobulin M 115 50 - 300 mg/dL [facility] Comment:THIS TEST WAS PERFOR MED AT:[facility] [address] [phone] RUCKER MD 09/01/2024 3:07 PM EST 09/01/2024 3:07 PM EST Generic External Data Provider LAB BLOOD ORDERAB LES Final Result Performing Organization Address [facility]/ZIP Co de Phone Number [facility] [address] [place] [phone] * Homocysteine (09/01/2024 3:07 PM EST) [facility] Homocysteine 7.3 <10.4 umol/L [facility] Comment:Homocysteine is incr eased by functional deficiency offolate or vitamin B12. Testing for methylmalonic aciddifferentiates between these deficiencies. Other causesof increased homocysteine include renal failure, folateantagonists such as methotrexate and phenytoin, andexposure to nitrous oxide.Mala To et al., [place] [employer] Med. 1999;131(5):331-9.THIS TEST WAS PERFORMED AT:[facility] [place] [phone] RUCKER MD 09/01/2024 3:07 PM EST 09/01/2024 3:07 PM EST Generic External Data Provider LAB BLOOD ORDERAB LES Final Result Performing Organization Address [facility] Co de Phone Number [facility] [address] [place] [phone] * Hemoglobin A1c (09/01/2024 3:07 PM EST) Hemoglobin A1c 5.9 <6.0 % [facility] Comment:Hemoglobin A1C Refer ence Range Adults: 4.8 - 6.0 % Non diabetic: < 6.0 % Goal: < 7.0 %Additional Action Suggested: > 8.0 %Note: Hemoglobin A1c results are invalid for patients with abnormal amounts of HbF. Blood transfusions may impact the HbA1c concentration in the patient sample. Estimated Average Glucose 123 mg/dL [facility] Comment:eAG = Estimated ave rage glucose which is %A1C expressed asaverage glucose, using the formula of the V5M-YheuociDziirhb Glucose study (ADAG), Diabetes Care, Vol.31,#8,Feb. 2007 09/01/2024 3:07 PM EST 09/01/2024 3:07 PM EST [employer] External Data Provider LAB BLOOD ORDERAB LES Final Result Performing Organization Address [facility] Co de Phone Number [facility] [address] [place] [phone] * BI Mammogram Screening Tomosynthesis Bilateral (08/26/2024 2:40 PM EST) Anatomical Region Laterality Modality Breast Bilateral Mammography 08/26/2024 2:40 PM EST Narrative 09/04/2024 7:21 PM EST ? [facility] ? [address] ?[place], [place] [address] ? Mammography Report ? Signed ? Patient: Hall,Nisa ?MR#: [id number] ?? [id number] ? : 1975 ?Acct:[id number] ? Age/Sex: 48 / F ?ADM Date: 08/26/ ? Loc: HO.MAMMO ? Attending Dr: Adal Alves MD ? Ordering Physician: Adal Alves MD ?Resu ?? lts: 2Benign Findings ? Date of Service: 08/26/ ?Follow Up: 1 Year From Orig ?? inal Mammogram ? Procedure(s): MM tomosynthesis screening BI ?? Accession Number(s): [id number] ? cc: Adal Alves MD ? EXAMINATION: [...] DD/ 1440 ? TD/TT: 08/26/24 1450 ? Senior Advisor: ? Procedure Note Rosaura, Image - 09/04/2024 [facility] [address] [place] [address] Mammography Report Signed Patient: Nisa HallMR#: [id number] : 1975Acct:[id number] Age/Sex: 48 / FADM Date: 08/26/24 Loc: DAMIAN Attending Dr: Adal Alves MD Ordering Physician: Adal Alves MDResu lts: 2Benign Findings Date of Service: 08/26/24Follow Up: 1 Year From Orig inal Mammogram Procedure(s): MM tomosynthesis screening BI Accession Number(s): [id number] cc: Adal Alves MD EXAMINATION: MM SCREENING [...] by: Shavonne Corley DO 09/04/2024 07:18 PM [facility] Dictated By: Shavonne Corley DO Signed By: <Electronically signed by Shavonne Corley DO in OV> 09/04/24 1918 DD/ 1440 TD/TT: 08/26/24 1450 Senior Advisor: Adal Mccarthy MD IMG BI PROCEDURES Reji ebenezer Result - Final * HEPATITIS C AB W/REFL TO HCV RNA, QN, PCR (02/05/2022 10:03 AM EDT) HEPATITIS C ANTIBODY NON-REACT [facility] NON-REACT [facility] INDEX 0.03 <1.00 [facility] Comment: ?? HCV antibody was non-reactive. There is no laboratory ?? evidence of HCV infection. ?? In most cases, no further action is required. However, if recent HCV exposure is suspected, a test for HCV RNA (test code 53704) is suggested. ?? For additional information please refer to http://education.Squid[employer]/faq/XHT24j4 (This link is being provided for informational/ educational purposes only.) ?? 02/05/2022 10:0 3 AM EDT us Adal Mccarthy MD HISTORICAL/NON ORDERA BLE LABS Final Result Performing Organization Address City/[facility]/ZIP Co de Phone Number [facility] [address] * HIV 1/2 ANTIGEN/ANTIBODY,FOURTH GENERATION W/RFL (02/05/2022 9:38 AM EDT) HIV-1/2 ANTIGEN AND ANTIBODIES, 4TH GENERATION W/ REFLEX TNP [facility] Comment: TEST NOT PERFORMED ?? No serum received. 02/05/2022 9:38 AM EDT us Adal Mccarthy MD LAB BLOOD ORDERABLES Final Result Performing Organization Address [facility] Co de Phone Number [facility] [address] * HPV mRNA E6/E7 (06/04/2018 12:00 AM EST) HPV mRNA E6/E7 Not Detected NOT DETECTED [facility] Comment: This test was performed using the APTIMA(R) HPV Assay ([employer] This assay detects E6/E7 viral messenger RNA (mRNA) from 14 high-risk HPV types (16,18,31,33,35,39,45,51, 52,56,58,59,66,68). For additional information please refer to: http://education.Eventcheq.[employer]/faq/EPY237u7 (This link is being provided for informational/ educational purposes only.) The analytical performance characteristics of this assay have been determined by [employer] [place], [place]. The modifications have not been cleared or approved by the FDA. This assay has been validated pursuant to the CLIA regulations and is used for clinical purposes. Test Performed by [employer], [facility] [place], [address] [place] [address] Marcos Hughes M.D., Ph.D., Director of Laboratories , CLIA [id number] Please note: ??Effective 04/08/2016, HPV testing will be performed using [employer]'s APTIMA test which targets mRNA. Detecting mRNA instead of DNA, as in older methods, offers significant improvements in specificity. 06/04/2018 us Lisa Goldstein CNM HISTORICAL/NON ORDERABLE LABS Final Result [facility] [address] from Last 3 Months or Most Recently Relevant to Health Maintenance Insurance [employer] Care Teams Straightening Press Operator Relationship Specialty Start Date End Date Adal Terrell MD [address] [place] [address] PCP - General Internal Medicine 03/08/14
--- OUTSIDE RECORDS SUMMARY | 2024-11-16 18:04 | XMS_ITS | Encounter Summary ---
Author Organization [employer] Address [address] [facility] [address] [place] [address] Care Team Providers Care Loftsman/Woman Name Role Phone Adal Terrell MD Primary Care Provide r Reason for Visit * Reason Onset Date Comments Letter for School/Work 12/12/2023 Appointment Request 12/12/2023 Encounter Details Date Type Department Care Team ([facility] Contact Info) Description 12/12/2023 Telephone [facility] [address] [place], [place] [phone] Adal Terrell MD [address] [place] [address] Letter for School/Work; Appointment Request Social History [...] Description 11/29/2024 2:00 PM EDT Telemedicine [facility] [address] [place] [address] Marci Kennedy, YANET [address] [place] [address] 12/14/2024 1:15 PM EDT Office Visit [facility] [address] [place] [address] Adal Terrell MD [address] [place] [address] documented as of this encounter Visit Diagnoses Not on filedocumented in this encounter Additional Health Concerns Assessment Noted Time PHQ-9 Depression Total Score: 0 09/10/19 23 11:00 AM EST documented as of this encounter Care Teams Loftsman/Woman Relationship Specialty Start Date End Date Adal Terrell MD [address] [place] [address] PCP - General Internal Medicine 03/08/14 documented as of this encounter
--- OUTSIDE RECORDS SUMMARY | 2024-11-16 18:04 | XMS_ITS | Encounter Summary ---
Author Organization [employer] Address [address] [place] [address] Care Team Providers Care Security Management Specialist Name Role Phone Adal Terrell MD Primary Care Provide r Encounter Details Date Type Department Care Team (Late st Contact Info) Description 11/12/2024 Orders Only [facility] [address] [place] [address] Adal Terrell MD [address] [place] [address] Leukocytosis, unspecified type (Primary Dx) Social History Tobacco Use Types Packs/Day Years [...] Encounter Note - Adal Mccarthy MD - 11/12/2024 12:51 PM EDT Please let patient know her UA was completely normal documented in this encounter Plan of Treatment Upcoming Encounters Date Type Department Care Team (Late st Contact Info) Description 11/29/2024 2:00 PM EDT Telemedicine [facility] PEDS [address] [place] [address] Marci Kennedy, RN [address] [place] [address] 12/14/2024 1:15 PM EDT Office Visit [facility] [address] [place] [address] Adal Terrell MD [address] [place] [address] documented as of this encounter Procedures Procedure Name Priority Date/Time Associated Diagnosis Comments URINALYSIS, COMPLETE, WITH REFLEX TO CULTURE Routine 11/16/2024 3:12 PM EDT Leukocytosis, unspecified type documented in this encounter Results * Urinalysis, Complete, with Reflex to Culture (11/16/2024 3:12 PM EDT) Color Urine Yellow [facility] Appearance Urine Clear [facility] PH 6.5 5.0 - 9.0 [facility] Glucose Urine UA Negative Negative mg/dL [facility] Urine Blood Negative Negative [facility] Specific [place] - Urine 1.010 1.005 - 1.025 [facility] Urine Protein Negative Neg-Trace mg/dL [facility] Urine Ketones Negative Negative mg/dL [facility] Nitrite Urine Negative Negative [facility] Leukocyte Esterase Urine Negative Negative [facility] RBC Urine 0-2 0 - 2 /HPF [facility] Urine WBC 0-5 0 - 5 /HPF [facility] Urine Squamous Epithelial Cell 0-2 0 - 2 /HPF [facility] Urine Bacteria None Seen None Seen [facility] Hyaline Casts, Urine 0-2 0 - 2 /LPF [facility] Urine 11/16/2024 3:12 PM EDT 11/16/2024 3:43 PM EDT Narrative [facility] - 11/16/2024 3:56 PM EDT Urine, Clean Catch Adal Mccarthy MD LAB URINE ORDERABLES Final Result [facility] [address] [place] [phone] documented in this encounter Visit Diagnoses Diagnosis Leukocytosis, unspecified type- Primary documented in this encounter Additional Health Concerns Assessment Noted Time PHQ-9 Depression Total Score: 5 01/27/20 24 10:54 AM EDT documented as of this encounter Care Teams Security Management Specialist Relationship Specialty Start Date End Date Adal Terrell MD [address] [place] [phone] PCP - General Internal Medicine 03/08/14 documented as of this encounter
--- OUTSIDE RECORDS SUMMARY | 2024-11-16 18:04 | XMS_ITS | Encounter Summary ---
Author Organization [employer] Address [address] [facility] 7t [place] [address] Care Team Providers Care Divemaster Name Role Phone Adal Terrell MD Primary Care Provide r Reason for Visit * Reason Onset Date Comments Med Refill 01/02/2023 Encounter Details Date Type Department Care Team ([facility] st Contact Info) Description 01/02/2023 Telephone [facility] [address] [place] [address] [phone] Adal Terrell MD [address] [place] [address] Med Refill Social History Tobacco Use Types [...] Info) Description 11/29/2024 2:00 PM EDT Telemedicine [facility] PEDS [address] [place] [address] Marci Kennedy, RN [address] [place] [address] 12/14/2024 1:15 PM EDT Office Visit [facility] [address] [place] [address] Adal Terrell MD [address] [place] [address] documented as of this encounter Visit Diagnoses Not on filedocumented in this encounter Additional Health Concerns Assessment Noted Time PHQ-9 Depression Total Score: 0 09/10/19 23 11:00 AM EST documented as of this encounter Care Teams Divemaster Relationship Specialty Start Date End Date Adal Terrell MD [address] [place] [address] PCP - General Internal Medicine 03/08/14 documented as of this encounter
--- OUTSIDE RECORDS SUMMARY | 2024-11-16 18:04 | XMS_ITS | Encounter Summary ---
Author Organization [employer] Address [address] [facility] [address] [facility] [address] 7[address] [place] [address] Care Team Providers Care Application Development Director Name Role Phone Adal Terrell MD Primary Care Provide r Encounter Details Date Type Department Care Team (Late st Contact Info) Description 11/05/2024 Orders Only [facility] [address] [place], [place] [phone] Provider, MD Tong Social History Tobacco Use [...] Description 11/29/2024 2:00 PM EDT Telemedicine [facility] [address] [place] [address] Marci Kennedy, YANET [address] [place] [address] 12/14/2024 1:15 PM EDT Office Visit [facility] [address] [place] [address] Adal Terrell MD [address] [place] [address] documented as of this encounter Procedures Procedure Name Priority Date/Time Associated Diagnosis Comments IRON AND TOTAL IRON BINDING CAPACITY Routine 11/05/2024 2:58 PM EDT CBC Routine 11/05/2024 2:58 PM EDT FERRITIN Routine 11/05/2024 2:58 PM EDT HM COLONOSCOPY Routine 11/02/2024 9:48 AM EDT documented in this encounter Results * Ferritin (11/05/2024 2:58 PM EDT) Ferritin 134 10 - 250 ng/mL [facility] 11/05/2024 2:58 PM EDT 11/05/2024 2:58 PM EDT us Generic External Data Provider LAB BLOOD ORDERAB LES Final Result Performing Organization Address [facility] Co de Phone Number [facility] [address] [place] [phone] * (ABNORMAL) Iron And Total Iron Binding Capacity (11/05/2024 2:58 PM EDT) [facility] Iron 35 30 - 160 mcg/dL [facility] Total Iron Binding Capacity 302 228 - 428 mcg/dL [facility] Percent Iron Saturation 12(L) 15 - 50 % [facility] Unsaturated Iron Binding 267 ug/dL [facility] 11/05/2024 2:58 PM EDT 11/05/2024 2:58 PM EDT us Generic External Data Provider LAB BLOOD ORDERAB LES Final Result Performing Organization Address [facility] Co de Phone Number [facility] [address] [place] [phone] * (ABNORMAL) CBC (11/05/2024 2:58 PM EDT) [facility] White Blood Count 14.9(H) 4.8 - 10.8 X10*3/uL [facility] Red Blood Count 4.57 4.20 - 5.50 X10*6/uL [facility] Hemoglobin 12.9 12.0 - 16.0 g/dl [facility] Hematocrit 38.2 37.0 - 47.0 % [facility] Mean Corpuscular Volume 83.6 80.0 - 98.0 fL [facility] Mean Corpuscular Hemoglobin 28.2 27.0 - 33.0 pg [facility] Mean Corpuscular HGB Conc 33.8 31.0 - 35.0 g/dl [facility] Red Cell Distribution Width 15.6 11.0 - 16.0 % [facility] Platelet Count 352 160 - 400 X10*3/uL [facility] Mean Platelet Volume 9.4 9.4 - 12.3 fL [facility] NRBC Pct Auto 0.0 0.0 - 0.2 /100WBC [facility] NRBC Abs Auto 0.000 0.0 - 0.012 X10*3/uL [facility] 11/05/2024 2:58 PM EDT 11/05/2024 2:58 PM EDT us Generic External Data Provider LAB BLOOD ORDERAB LES Final Result [facility] [address] [place] [phone] [phone] * Hm Colonoscopy (11/02/2024 9:48 AM EDT) Colonoscopy Normal Normal Narrative Qing, Georgiana - 11/02/2024 9:48 AM EDT See external [...] documented as of this encounter Care Teams Application Development Director Relationship Specialty Start Date End Date Adal Terrell MD [address] [place] [phone] PCP - General Internal Medicine 03/08/14 documented as of this encounter
--- OUTSIDE RECORDS SUMMARY | 2024-11-16 18:04 | XMS_ITS | Encounter Summary ---
Author Organization [employer] Address [address] [facility] [facility] [address] [place] [address] Care Team Providers Care Networking Technology Instructor Name Role Phone Adal Terrell MD Primary Care Provide r Reason for Visit * Reason Onset Date Comments Nurse Triage 03/05/2024 Encounter Details Date Type Department Care Team ([facility] st Contact Info) Description 03/05/2024 Telephone [facility] [address] [place], [place] [phone] Adal Terrell MD [address] [place] [address] Nurse Triage Social History Tobacco Use Types [...] Description 11/29/2024 2:00 PM EDT Telemedicine [facility] [address] [place] [address] Marci Kennedy, RN [address] [place] [address] 12/14/2024 1:15 PM EDT Office Visit [facility] [address] [place] [address] Adal Terrell MD [address] [place] [address] documented as of this encounter Visit Diagnoses Not on filedocumented in this encounter Additional Health Concerns Assessment Noted Time PHQ-9 Depression Total Score: 5 01/27/20 24 10:54 AM EDT documented as of this encounter Care Teams Networking Technology Instructor Relationship Specialty Start Date End Date Adal Terrell MD [address] [place] [address] PCP - General Internal Medicine 03/08/14 documented as of this encounter
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
--- OUTSIDE RECORDS SUMMARY | 2024-11-16 18:04 | XMS_ITS | Encounter Summary ---
Author Organization [employer] Address [address] [place] [address] Care Team Providers Care Building Maintenance Superintendent Name Role Phone Adal Terrell MD Primary Care Provide r Reason for Visit * Reason Onset Date Comments Med Refill 03/08/2024 Encounter Details Date Type Department Care Team ([facility] Contact Info) Description 03/08/2024 Telephone [facility] MEDICINE [address] [place] [address] Adal Terrell MD [address] [place] [address] Med Refill Social History Tobacco Use Types [...] immediate release tablet To be sent to: [facility] documented in this encounter Plan of Treatment Upcoming Encounters Date Type Department Care Team (Late st Contact Info) Description 11/29/2024 2:00 PM EDT Telemedicine [facility] CH[facility] MED & PEDS [address] [place] [address] Marci Kennedy, RN [address] [place] [address] 12/14/2024 1:15 PM EDT Office Visit [facility] MEDICINE [address] [place] [address] Adal Terrell MD [address] [place] [address] documented as of this encounter Visit Diagnoses Not on filedocumented in this encounter Additional Health Concerns Assessment Noted Time PHQ-9 Depression Total Score: 5 01/27/20 24 10:54 AM EDT documented as of this encounter Care Teams Building Maintenance Superintendent Relationship Specialty Start Date End Date Adal Terrell MD [address] [place] [address] PCP - General Internal Medicine 03/08/14 documented as of this encounter
--- OUTSIDE RECORDS SUMMARY | 2024-11-16 18:04 | XMS_ITS | Encounter Summary ---
Author Organization [employer] Address [address] [place] [address] Care Team Providers Care Stem Roller Name Role Phone Adal Terrell MD Primary Care Provide r Reason for Visit * Reason Comments Med Refill Encounter Details Date Type Department Care Team (Late st Contact Info) Description 07/03/2023 Refill [facility] CH[facility] MED & PEDS [address] [place], [place] [phone] Adal Terrell MD [address] [place], [place] [phone] Low vitamin D level Social History Tobacco [...] Description 11/29/2024 2:00 PM EDT Telemedicine [facility] MED & PEDS [address] [place] [address] Marci Kennedy, RN [address] [place] [address] 12/14/2024 1:15 PM EDT Office Visit [facility] MEDICINE [address] [place] [address] Adal Terrell MD [address] [place] [address] documented as of this encounter Visit Diagnoses Diagnosis Low vitamin D level documented in this encounter Additional Health Concerns Assessment Noted Time PHQ-9 Depression Total Score: 0 09/10/19 23 11:00 AM EST documented as of this encounter Care Teams Stem Roller Relationship Specialty Start Date End Date Adal Terrell MD [address] [place] [address] PCP - General Internal Medicine 03/08/14 documented as of this encounter
--- OUTSIDE RECORDS SUMMARY | 2024-11-16 18:04 | XMS_ITS | Encounter Summary ---
Author Organization [employer] Address [address] [place] [address] Care Team Providers Care Brim Pouncer Machine Operator Name Role Phone Adal Terrell MD Primary Care Provide r Reason for Visit * Reason Onset Date Comments Med Refill 11/05/2022 Encounter Details Date Type Department Care Team (Late Contact Info) Description 11/05/[address] [facility] MEDICINE [address] [place] [address] Adal Terrell MD [address] [place] [address] Med Refill Social History Tobacco Use Types [...] 2:00 PM EDT Telemedicine [facility] CHC MED & PEDS 505 [place] [address] Marci Kennedy, RN 505 [place] [address] 12/14/2024 1:15 PM EDT Office Visit [facility] MEDICINE [address] [place] [address] Adal Terrell MD [address] [place] [address] documented as of this encounter Visit Diagnoses Not on filedocumented in this encounter Additional Health Concerns Assessment Noted Time PHQ-9 Depression Total Score: 0 09/10/19 23 11:00 AM EST documented as of this encounter Care Teams Brim Pouncer Machine Operator Relationship Specialty Start Date End Date Adal Terrell MD [address] [place] [address] PCP - General Internal Medicine 03/08/14 documented as of this encounter
--- OUTSIDE RECORDS SUMMARY | 2024-11-16 18:04 | XMS_ITS | Clinical Summary ---
Author Organization [facility] Address [address] [place] [address] Care Team Providers Care Policy And Planning Manager Name Role Phone Unavailable Primary Care Provider Unavailabl e Allergies No known active allergies Social History Tobacco Use Types Packs/Day Years Used Date Smoking Tobacco: Never Assessed Comments Unknown Sex and Gender Information Value Date Recorded Sex Assigned at Not on file Legal Sex Female 6:24 PM EST Gender Identity Not on file Sexual [...] Colonoscopy 2021 Influenza Vaccine 02/26/2024 COVID-19 Vaccine ( - 2023-2 5 season) 2024 Pneumococcal Vaccine: Pediat douglas (0-5 Years) and At-Risk Patients (6 to 49 Years) Aged Out No longer eligible b ased on patient's age to complete this topic Insurance [facility]
--- OUTSIDE RECORDS SUMMARY | 2024-11-16 18:04 | XMS_ITS | Encounter Summary ---
Author Organization [employer] Address [address] 7[address] [place] [address] Care Team Providers Care Fisheries Manager Name Role Phone Adal Terrell MD Primary Care Provide r Reason for Visit * Reason Onset Date Comments Appointment Request 10/29/2022 Encounter Details Date Type Department [facility] Description 10/29/2022 Telephone [facility] MEDICINE [address] [place] [address] Adal Terrell MD [address] [place] [address] Appointment Request Social History Tobacco Use Types [...] only with him. Please contact pt at [phone] documented in this encounter Plan of Treatment Upcoming Encounters Date Type Department Care Team (Late st Contact Info) Description 11/29/2024 2:00 PM EDT Telemedicine [facility] CH[facility] MED & PEDS 505 [place] [address] Marci Kennedy, RN 505 [place] [address] 12/14/2024 1:15 PM EDT Office Visit [facility] MEDICINE [address] [place] [address] Adal Terrell MD [address] [place] [address] documented as of this encounter Visit Diagnoses Not on filedocumented in this encounter Additional Health Concerns Assessment Noted Time PHQ-9 Depression Total Score: 0 09/10/19 23 11:00 AM EST documented as of this encounter Care Teams Fisheries Manager Relationship Specialty Start Date End Date Adal Terrell MD [address] [place] [address] PCP - General Internal Medicine 03/08/14 documented as of this encounter
--- OUTSIDE RECORDS SUMMARY | 2024-11-16 18:04 | XMS_ITS | Encounter Summary ---
Author Organization [employer] Address [address] [place] [address] Care Team Providers Care Director Strategy Name Role Phone Adal Terrell MD Primary Care Provide r Reason for Visit * Reason Onset Date Comments Med Refill 02/09/2024 Encounter Details Date Type Department Care Team ([facility] Contact Info) Description 02/09/2024 Telephone [facility] MEDICINE [address] [place] [address] Adal Terrell MD [address] [place] [address] Med Refill Social History Tobacco Use Types [...] immediate release tablet To be sent to: [id number] [place], [place] - [address] [facility] documented in this encounter Plan of Treatment Upcoming Encounters Date Type Department Care Team ([facility] st Contact Info) Description 11/29/2024 2:00 PM EDT Telemedicine [facility] CH[facility] MED & PEDS 505 [place] [address] Marci Kennedy, YANET 505 [place] [address] 12/14/2024 1:15 PM EDT Office Visit [facility] MEDICINE 230 [place] [address] Adal Terrell MD [address] [place] [address] documented as of this encounter Visit Diagnoses Not on filedocumented in this encounter Additional Health Concerns Assessment Noted Time PHQ-9 Depression Total Score: 5 01/27/20 24 10:54 AM EDT documented as of this encounter Care Teams Director Strategy Relationship Specialty Start Date End Date Adal Terrell MD [address] [place] [address] PCP - General Internal Medicine 03/08/14 documented as of this encounter
--- OUTSIDE RECORDS SUMMARY | 2024-11-16 18:04 | XMS_ITS | Encounter Summary ---
Author Organization [employer] Address [address] 7[address] [place] [address] Care Team Providers Care Gold Miner Name Role Phone Adal Terrell MD Primary Care Provide r Reason for Visit * Reason Onset Date Comments DME Orthotics 11/16/2024 Encounter Details Date Type Department Care Team ([facility] st Contact Info) Description 11/16/2024 Telephone [facility] MEDICINE [address] [place], [place] [phone] Adal Terrell MD [address] [place] [address] DME Orthotics Social History Tobacco Use Types Packs/Day Years [...] Encounter - Britney Arzate [place] - 11/16/2024 2:42 PM EDT DME RX for Bilateral Cock-Up Wrist Splints generated and placed on providers desk for signature. documented in this encounter Plan of Treatment Upcoming Encounters Date Type Department Care Team (Late st Contact Info) Description 11/29/2024 2:00 PM EDT Telemedicine [facility] CHC MED & PEDS [address] [place] [address] Marci Kennedy RN 505 [place] [address] 12/14/2024 1:15 PM EDT Office Visit [facility] MEDICINE [address] [place] [address] Adal Terrell MD [address] [place] [address] documented as of this encounter Visit Diagnoses Not on filedocumented in this encounter Additional Health Concerns Assessment Noted Time PHQ-9 Depression Total Score: 5 01/27/20 24 10:54 AM EDT documented as of this encounter Care Teams Gold Miner Relationship Specialty Start Date End Date Adal Terrell MD [address] [place] [address] PCP - General Internal Medicine 03/08/14 documented as of this encounter
== END 2024-11-16 15:08 | disposition home or self-care (01) ==
LOC: HO.LAB 15:07
PROVIDERS: PCP Internal Medicine; Visit Provider Internal Medicine
DX: D72.829 Elevated white blood cell count, unspecified (principal)
CPT/HCPCS: 81001

== ENCOUNTER 2024-11-17 08:58 | Outpatient (AMB) | payer MEDICAID, SELFPAY ==
--- NOTE | 2024-11-17 09:33 | MHC.OFFVIS ---
Vital Signs 11/17/24 09:34 Height 5 ft 3 in Weight 176 lb 5.917 oz BMI 31.2 BP 104/55 L Blood Pressure Location Lt brachial Position Sitting Pulse 80 Intake Visit Reasons: s/p EGD [place] Intake Note: Nisa presents in the office as a follow up for EGD and COLO. CC: She states that she is having a lot of burning and pains in the stomach - she states that she is feeling worse after her procedures. She states the her WBC count went up and iron is going down. Chief Concierge Required: No Allergies levofloxacin [From Levaquin] Allergy (Intermediate, Verified 11/17/24 09:35) INTERACTED W/ANTI DEPRESSANT morphine [MORPHINE] Allergy (Intermediate, Verified 11/17/24 09:35) ITCHING, HIVES trazodone [TRAZODONE] Allergy (Mild, Verified 11/17/24 09:35) TACHYCARDIA amitriptyline Allergy (Unknown, Verified 11/17/24 09:35) Unknown citalopram Allergy (Unknown, Verified 11/17/24 09:35) Unknown escitalopram Allergy (Unknown, Verified 11/17/24 09:35) Unknown ibuprofen Allergy (Unknown, Verified 11/17/24 09:35) Unknown ketorolac Allergy (Unknown, Verified 11/17/24 09:35) Unknown sertraline Allergy (Unknown, Verified 11/17/24 09:35) Unknown Sulfa (Sulfonamide Antibiotics) Allergy (Unknown, Verified 11/17/24 09:35) Unknown topiramate Allergy (Unknown, Verified 11/17/24 09:35) Unknown trimethoprim Allergy (Unknown, Verified 11/17/24 09:35) Unknown zolpidem Allergy (Unknown, Verified 11/17/24 09:35) Unknown NSAIDS (Non-Steroidal Anti-Inflamma [NSAIDS (NON-STEROIDAL ANTI-INFLAMMA] Adverse Reaction (Severe, Verified 11/17/24 09:35) HYPEREMESIS adhesive tape Adverse Reaction (Verified 11/17/24 09:35) Blister From Celexa Allergy (Intermediate, Uncoded 11/17/24 09:35) INTERACTS W/LEVAQUIN ANTIDEPRESENT Allergy (Unknown, Uncoded 11/17/24 09:35) Unknown Sulfamethoxazole Allergy (Unknown, Uncoded 11/17/24 09:35) Unknown toradol Allergy (Unknown, Uncoded 11/17/24 09:35) Unknown From Ambien Adverse Reaction (Severe, Uncoded 11/17/24 09:35) TACHYCARDIA From Ultram Adverse Reaction (Severe, Uncoded 11/17/24 09:35) TACHYCARDIA From ZOLOFT Adverse Reaction (Severe, Uncoded 11/17/24 09:35) TACHYCARDIA From TORADOL Adverse Reaction (Mild, Uncoded 11/17/24 09:35) STOMACH UPSET HPI Comments Details: 48 y.o F with PMH of HTN, YUNG, chronic prescription opiate use who is here for chronic diarrhea. Reports has been having LLQ pain assoc with frequent BMs x 2 years. Has yellow stools which is formed but has to go 7-8 BMs per day. No night time sx. Mostly happens after eating. No blood in stool. 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 Meds reviewed- on Mag oxide. Also reports that certain food ana rosa fluids get hung up in her chest and regurgitates. No dysphagia. Avoids eating/drinking before bedtime to mitigate this. Pt smokes cannabis x 1-2 times a day. Former cigarette smoking quit 2015. No etOH use. No fam hx of CRC in first degree relatives. Mat uncle with CRC and Pat Uncle and Aunt with CRC. Brother - HCC hx of cirrhosis 11/02/24: Mucosa: Solid debris noted in cecal pouch and most of the right colon precluding adequate visualization. Protruding lesions: 1 pedunculated polyp of size 6 mm in sigmoid colon. Cold snare polypectomy was performed. The polyp was completely removed and retrieved. Small internal hemorrhoids without stigmata of recent bleeding. Path: Addendum #1 (C): Immunostain for gastrin is negative in 3 tissue fragments consistent with gastric body mucosa, supporting a diagnosis of atrophic gastritis with focal pseudopyloric changes. One fragment shows positive G cells consistent with antral mucosa. Control stains appropriately. Electronically Signed By: Gisella Houston 11/09/24 1248 Diagnosis A. Duodenum, biopsy: Duodenal mucosa with preserved villi and no specific change. B. Gastric antrum, biopsy: Reactive gastropathy with possible erosion and minimal chronic inactive inflammation; negative for H.pylori, intestinal metaplasia and dysplasia. C. Gastric body, biopsy: Gastric body and antral-type mucosa with reactive changes and mild-moderate chronic inactive gastritis, cannot exclude atrophic gastritis; negative for H. pylori, intestinal metaplasia and dysplasia. D. Esophagus, lower, biopsy: Squamous mucosa with no specific change; no columnar mucosa present; no evidence of eosinophilic esophagitis. E. Esophagus, middle, biopsy: Squamous mucosa with no specific change; no columnar mucosa present. F. Colon, sigmoid, polyp: Tubular adenoma; negative for high-grade dysplasia and carcinoma. Comment: (C): Gastric stain pending; addendum to follow. 11/17/24: Pt here for follow up. Results reviewed. Bx pos for atrophic gastritis. No GIM. No H pylori noted. [place] poor prep and aware will need a repeat. Main issue remains severe abd pain assoc with urge to defecate. Abd pain improves after BM is passed. Pt hesitant to take antidiarrheals as constipation is more bothersome than frequent stools. She is more concerned re global sx. Laboratory Tests 02/08/22 11/05/24 14:37 14:58 Iron 35 Ferritin 9 L 134 PFSH Medical History Sleep apnea Chronic back pain GERD (gastroesophageal reflux disease) Cervical radiculopathy Anemia Hx: UTI (urinary tract infection) Fatty liver Hepatic steatosis Migraines Asthma Recurrent UTI Adhesive capsulitis of right shoulder Fibromyalgia Unspecified internal derangement of unspecified knee Surgical History History of esophagogastroduodenoscopy (EGD) H/O colonoscopy History of left oophorectomy Previous section History of partial hysterectomy Family History Father No problems noted. Mother No problems noted. 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 Reproductive History Menstrual Age of Menarche: 13 Review of Systems Const All systems reviewed & are unremarkable except as noted in HPI and below Physical Exam Vital Signs: Last Vital Signs Pulse 80 11/17/24 09:34 BP 104/55 L 11/17/24 09:34 BMI result Body Mass Index 31.2 No apparent distress Nonicteric Abdomen soft, nondistended Alert and oriented x3, normal gait Assessment & Plan Assessment & Plan (1) Chronic diarrhea: Code(s): K52.9 - Noninfective gastroenteritis and colitis, unspecified Category: Medical (2) Acid reflux: Code(s): K21.9 - Gastro-esophageal reflux disease without esophagitis Category: Medical (3) Regurgitation of food: Code(s): R11.10 - Vomiting, unspecified Category: Medical (4) Atrophic gastritis: Code(s): K29.40 - Chronic atrophic gastritis without bleeding Category: Medical Plan 1. IBS Sx likely 2/2 IBS-D. Microsocpic colitis not ruled out though typically without abd pain. Pt would like to avoid antidiarrheals. Discussed TCA - allergy to amitriptyline noted but pt unable to recall, may have been a side effect as opposed to true anaphylaxis. Willing to try nortriptyline Plan: - Notriptyline 10 once daily at night - Increase to 20 after 4 weeks 2. Poor prep colo Needs a repeat within 6-12 months 3. Atrophic gastritis Likely leading to FRANCISCA. Plan: - Recheck iron, B12 and folate in 3 months - will likely need iron infusion once q6m Follow up 6 weeks to review response to TCA Orders: Orders Ferritin 3 Months K29.40 - Chronic atrophic gastritis without bleeding Complete Blood Count no Diff 3 Months K29.40 - Chronic atrophic gastritis without bleeding Parietal Cell Antibody 3 Months K29.40 - Chronic atrophic gastritis without bleeding Vitamin B12 and Folate 3 Months K29.40 - Chronic atrophic gastritis without bleeding Vitamin D 25-OH Total 3 Months K29.40 - Chronic atrophic gastritis without bleeding IRON PROFILE 3 Months K29.40 - Chronic atrophic gastritis without bleeding Intrinsic Factor Antibodies 3 Months K29.40 - Chronic atrophic gastritis without bleeding Medications: New nortriptyline 10 mg PO BEDTIME 90 days 90 caps 0RF Coding Level of Care Code Est Pt Level 4 (11854) Diagnoses Chronic diarrhea K52.9 Acid reflux K21.9 Regurgitation of food R11.10 Atrophic gastritis K29.40
[2024-11-17 09:34] VITALS: BP 104/55; PULSE 80; BMI 31.2
--- OUTSIDE RECORDS SUMMARY | 2024-11-17 09:40 | XMS_ITS | Encounter Summary ---
Author Organization [employer] Address [address] [place] [address] Care Team Providers Care Biomechanical Engineer Name Role Phone Adal Terrell MD Primary Care Provide r Reason for Visit * Reason Onset Date Comments Med Refill 11/08/2024 Encounter Details Date Type Department Care Team ([facility] Contact Info) Description 11/08/2024 Telephone [facility] MEDICINE [address] [place] [address] Adal Terrell MD [address] [place] [address] Med Refill Social History Tobacco Use Types [...] immediate release tablet To be sent to: [id number] [place], [place] - [address] documented in this encounter Plan of Treatment Upcoming Encounters Date Type Department Care Team (Late st Contact Info) Description 11/29/2024 2:00 PM EDT Telemedicine [facility] CHC MED & PEDS [address] [place] [address] Marci Kennedy RN [address] [place] [address] 12/14/2024 1:15 PM EDT Office Visit [facility] MEDICINE [address] [place], [place] [phone] Adal Terrell MD [address] [place] [address] documented as of this encounter Visit Diagnoses Not on filedocumented in this encounter Additional Health Concerns Assessment Noted Time PHQ-9 Depression Total Score: 5 01/27/20 24 10:54 AM EDT documented as of this encounter Care Teams Biomechanical Engineer Relationship Specialty Start Date End Date Adal Terrell MD [address] [place] [address] PCP - General Internal Medicine 03/08/14 documented as of this encounter
--- OUTSIDE RECORDS SUMMARY | 2024-11-17 09:40 | XMS_ITS | Encounter Summary ---
Author Organization [facility] Address [address] [facility] [address] [facility] [address]t [place] [address] Care Team Providers Care Tissue Technician Name Role Phone Adal Terrell MD Primary Care Provide r Reason for Visit * Reason Onset Date Comments Results 11/05/2024 Encounter Details Date Type Department Care Team ([facility] Contact Info) Description 11/05/[address] [facility] [address] [place], [place] [phone] Adal Terrell MD [address] [place] [address] Results Social History Tobacco Use Types Packs/Day [...] bedone either at the clinic or at [facility]. Pt states that she will have this done at [facility] after school today. Pt also wanted to [...] office appt on 12/14/2024. PT also give [facility] advisement for abdominal distention/discomfort symptoms but the pt would like to see if PCP could order a urine culture to rule out a UTI. Pt advised that this information will be sent to PCP for review and advisement. * Telephone Encounter - Gabriela Morrison RN - 11/09/2024 3:07 PM EDT TC placed to pt to advise again to follow up with [facility] regarding lab results from 11/05/2024. Pt had called in looking for PCP to comment on the results. RN advised that the results were forwarded to PCP but that she should still consult with the ordering provider and [facility] to comment on the results. Pt [...] Pt states that these were ordered by [facility] and she has followed up with [...] Capacity, CBC Date when done: 11/05 Facility: [facility] documented in this encounter Plan of Treatment Upcoming Encounters Date Type Department Care Team (Late st Contact Info) Description 11/29/2024 2:00 PM EDT Telemedicine [facility] PEDS 505 [place] [address] Marci Kennedy RN 505 [place] [address] 12/14/2024 1:15 PM EDT Office Visit [facility]INE [address] [place] [address] Adal Terrell MD [address] [place] [address] documented as of this encounter Visit Diagnoses Not on filedocumented in this encounter Additional Health Concerns Assessment Noted Time PHQ-9 Depression Total Score: 5 01/27/20 24 10:54 AM EDT documented as of this encounter Care Teams Tissue Technician Relationship Specialty Start Date End Date Adal Terrell MD [address] [place] [address] PCP - General Internal Medicine 03/08/14 documented as of this encounter
--- OUTSIDE RECORDS SUMMARY | 2024-11-17 09:40 | XMS_ITS | Encounter Summary ---
Author Organization [employer] Address [address] [place] [address] Care Team Providers Care Processing Clerk Name Role Phone Adal Terrell MD Primary Care Provide r Reason for Visit * Reason Onset Date Comments Appointment Request 03/19/2023 Encounter Details Date Type Department Care Team ([facility] st Contact Info) Description 03/19/2023 Telephone [facility] [address] [place] [address] [phone] Adal Terrell MD [address] [place] [address] Appointment Request Social History Tobacco Use Types [...] EDT Tc from pt requesting to r/s FIREAR[employer] ASSEMBLY SUPERVISOR visit on 03/21/2023 @ 11:30 am. Pt states due to an emergency she has to fly out to [place] and won't be back in two weeks. Please contact pt at [phone] documented in this encounter Plan of Treatment Upcoming Encounters Date Type Department Care Team (Late st Contact Info) Description 11/29/2024 2:00 PM EDT Telemedicine [facility]S [address] [place] [address] Marci Kennedy, RN 505 [place] [address] 12/14/2024 1:15 PM EDT Office Visit [facility] 230 [place] [address] Adal Terrell MD [address] [place] [address] documented as of this encounter Visit Diagnoses Not on filedocumented in this encounter Additional Health Concerns Assessment Noted Time PHQ-9 Depression Total Score: 0 09/10/19 11:00 AM EST documented as of this encounter Care Teams Processing Clerk Relationship Specialty Start Date End Date Adal Terrell MD [address] [place] [address] PCP - General Internal Medicine 03/08/14 documented as of this encounter
--- OUTSIDE RECORDS SUMMARY | 2024-11-17 09:40 | XMS_ITS | Encounter Summary ---
Author Organization [employer] Address [address] [facility] [address] [place] [address] Care Team Providers Care Recycling Specialist Name Role Phone Adal Terrell MD Primary Care Provide r Encounter Details Date Type Department Care Team ([facility] st Contact Info) Description 11/09/2024 Telephone [facility] [address] [place] [address] Adal Terrell MD [address] [place] [address] Social History Tobacco Use Types Packs/Day Years [...] Upcoming Encounters Date Type Department Care Team ([facility] st Contact Info) Description 11/29/2024 2:00 PM EDT Telemedicine [facility] MED & PEDS 505 [place] [address] Marci Kennedy RN 505 [place] [address] 12/14/2024 1:15 PM EDT Office Visit [facility] [address] [place] [address] Adal Terrell MD [address] [place] [address] documented as of this encounter Visit Diagnoses Not on filedocumented in this encounter Additional Health Concerns Assessment Noted Time PHQ-9 Depression Total Score: 5 01/27/20 24 10:54 AM EDT documented as of this encounter Care Teams Recycling Specialist Relationship Specialty Start Date End Date Adal Terrell MD 230 [place] [address] PCP - General Internal Medicine 03/08/14 documented as of this encounter
--- OUTSIDE RECORDS SUMMARY | 2024-11-17 09:40 | XMS_ITS | Encounter Summary ---
Author Organization [employer] Address [address] [facility] [address]t [place] [address] Care Team Providers Care Blacksmith Helper Name Role Phone Adal Terrell MD Primary Care Provide r Reason for Visit * Reason Onset Date Comments [facility] 11/16/2024 Encounter Details Date Type Department Care Team ([facility] st Contact Info) Description 11/16/2024 Telephone [facility] MEDICINE 230 [place], [place] [phone] Adal Terrell MD [address] [place] [address] DME Orthotics Social History Tobacco Use Types [...] Info) Description 11/29/2024 2:00 PM EDT Telemedicine [facility] MED [facility] PEDS 505 [place] [address] Marci Kennedy RN 505 [place] [address] 12/14/2024 1:15 PM EDT Office Visit [facility] 230 [place] [address] Adal Terrell MD [address] [place] [address] documented as of this encounter Visit Diagnoses Not on filedocumented in this encounter Additional Health Concerns Assessment Noted Time PHQ-9 Depression Total Score: 5 01/27/20 24 10:54 AM EDT documented as of this encounter Care Teams Blacksmith Helper Relationship Specialty Start Date End Date Adal Terrell MD [address] [place] [address] PCP - General Internal Medicine 03/08/14 documented as of this encounter
--- OUTSIDE RECORDS SUMMARY | 2024-11-17 09:41 | XMS_ITS | Encounter Summary ---
Author Organization [employer] Address [address] [facility] [address] [place] [address] Care Team Providers Care Sheet Hanger Name Role Phone Adal Terrell MD Primary Care Provide r Encounter Details Date Type Department Care Team (Late st Contact Info) Description 11/12/2024 Orders Only [facility] 230 [place] [address] Adal Terrell MD [address] [place] [address] Leukocytosis, unspecified type (Primary Dx) Social History [...] [facility] 505 [place] [address] Marci Kennedy, RN 505 [place] [address] 12/14/2024 1:15 PM EDT Office Visit [facility] 230 [place] [address] Adal Terrell MD 230 [place] [address] documented as of this encounter Procedures Procedure Name Priority Date/Time Associated Diagnosis Comments URINALYSIS, COMPLETE, WITH REFLEX TO CULTURE Routine 11/16/2024 3:12 PM EDT Leukocytosis, unspecified type documented in this encounter Results * Urinalysis, Complete, with Reflex to Culture (11/16/2024 3:12 PM EDT) Color Urine Yellow [facility] Appearance Urine Clear [facility] PH 6.5 5.0 - 9.0 [facility] Glucose Urine UA Negative Negative mg/dL [facility] Urine Blood Negative Negative [facility] Specific [place] - Urine 1.010 1.005 - 1.025 [facility] Urine Protein Negative Neg-Trace mg/dL [facility] Urine Ketones Negative Negative mg/dL [facility] Nitrite Urine Negative Negative [facility] Leukocyte Esterase Urine Negative Negative [facility] RBC Urine 0-2 0 - 2 /HPF [facility] Urine WBC 0-5 0 - 5 /HPF [facility] Urine Squamous Epithelial Cell 0-2 0 - 2 /HPF [facility] Urine Bacteria None Seen None Seen [facility] Hyaline Casts, Urine 0-2 0 - 2 /LPF [facility] Urine 11/16/2024 3:12 PM EDT 11/16/2024 3:43 PM EDT Narrative [facility] - 11/16/2024 3:56 PM EDT Urine, Clean Catch Adal Mccarthy MD LAB URINE ORDERABLES Final Result [facility] [address] [place] [address] [phone] documented in this encounter Visit Diagnoses Diagnosis Leukocytosis, unspecified type- Primary documented in this encounter Additional Health Concerns Assessment Noted Time PHQ-9 Depression Total Score: 5 01/27/20 24 10:54 AM EDT documented as of this encounter Care Teams Sheet Hanger Relationship Specialty Start Date End Date Adal Terrell MD [address] [place] [address] PCP - General Internal Medicine 03/08/14 documented as of this encounter
--- OUTSIDE RECORDS SUMMARY | 2024-11-17 09:41 | XMS_ITS | Clinical Summary ---
Author Organization [facility] Address [address] [place] [address] Care Team Providers Care Senior Compensation Consultant Name Role Phone Unavailable Primary Care Provider [...] patient's age to complete this topic Insurance [facility]
--- OUTSIDE RECORDS SUMMARY | 2024-11-17 09:41 | XMS_ITS | Encounter Summary ---
Author Organization [employer] Address [address] [facility] [address] 7t [place] [address] Care Team Providers Care Staff Technologist Name Role Phone Adal Terrell MD Primary Care Provide r Reason for Visit * Reason Onset Date Comments Med Refill 02/09/2024 Encounter Details Date Type Department Care Team ([facility] Contact Info) Description 02/09/2024 Telephone [facility] 230 [place] [address] Adla Terrell MD [address] [place] [address] Med Refill Social History Tobacco Use Types [...] immediate release tablet To be sent to: [id number] [place], [place] - [address] [facility] documented in this encounter Plan of Treatment Upcoming Encounters Date Type Department Care Team ([facility] st Contact Info) Description 11/29/2024 2:00 PM EDT Telemedicine [facility]S 505 [place] [address] Marci Kennedy, YANET 505 [place] [address] 12/14/2024 1:15 PM EDT Office Visit [facility] 230 [place] [address] Adal Terrell MD 230 [place] [address] documented as of this encounter Visit Diagnoses Not on filedocumented in this encounter Additional Health Concerns Assessment Noted Time PHQ-9 Depression Total Score: 5 01/27/20 24 10:54 AM EDT documented as of this encounter Care Teams Staff Technologist Relationship Specialty Start Date End Date Adal Terrell MD 230 [place] [address] PCP - General Internal Medicine 03/08/14 documented as of this encounter
--- OUTSIDE RECORDS SUMMARY | 2024-11-17 09:41 | XMS_ITS | Encounter Summary ---
Author Organization [employer] Address [address] 7[address] [place] [address] Care Team Providers Care Trading Floor Operator Name Role Phone Adal Terrell MD Primary Care Provide r Reason for Visit * Reason Comments Med Refill Encounter Details Date Type Department Care Team ([facility] st Contact Info) Description 04/05/2024 Refill [facility] 230 [place] [address] Ronel Thomas, ANP 230 [place] [address] COVID-19 Social History Tobacco Use Types Packs/Day [...] [facility] 505 [place] [address] Marci Kennedy, YANET 505 [place] [address] 12/14/2024 1:15 PM EDT Office Visit [facility] 230 [place] [address] Adal Terrell MD 230 [place] [address] documented as of this encounter Visit Diagnoses Diagnosis COVID-19 documented in this encounter Additional Health Concerns Assessment Noted Time PHQ-9 Depression Total Score: 5 01/27/20 24 10:54 AM EDT documented as of this encounter Care Teams Trading Floor Operator Relationship Specialty Start Date End Date Adal Terrell MD 230 [place] [address] PCP - General Internal Medicine 03/08/14 documented as of this encounter
--- OUTSIDE RECORDS SUMMARY | 2024-11-17 09:41 | XMS_ITS | Encounter Summary ---
Author Organization [employer] Address [address] [facility] 7t [place] [address] Care Team Providers Care Area Operations Director Name Role Phone Adal Terrell MD Primary Care Provide r Reason for Visit * Reason Onset Date Comments Appointment Request 10/29/2022 Encounter Details Date Type Department Care Team ([facility] st Contact Info) Description 10/29/2022 Telephone [facility] MEDICINE [address] [place] [address] Adal Terrell MD 230 [place] [address] Appointment Request Social History Tobacco Use Types [...] only with him. Please contact pt at [phone] documented in this encounter Plan of Treatment Upcoming Encounters Date Type Department Care Team (Late st Contact Info) Description 11/29/2024 2:00 PM EDT Telemedicine [facility] MED & PEDS 505 [place] [address] Marci Kennedy, RN 505 [place] [address] 12/14/2024 1:15 PM EDT Office Visit [facility] 230 [place] [address] Adal Terrell MD [address] [place] [address] documented as of this encounter Visit Diagnoses Not on filedocumented in this encounter Additional Health Concerns Assessment Noted Time PHQ-9 Depression Total Score: 0 09/10/19 23 11:00 AM EST documented as of this encounter Care Teams Area Operations Director Relationship Specialty Start Date End Date Adal Terrell MD 230 [place] [address] PCP - General Internal Medicine 03/08/14 documented as of this encounter
--- OUTSIDE RECORDS SUMMARY | 2024-11-17 09:41 | XMS_ITS | Encounter Summary ---
Author Organization [employer] Address [address] [facility] [address] 7[address] [place] [address] Care Team Providers Care Continuous Mining Machine Company Miner Name Role Phone Adal Terrell MD Primary Care Provide r Encounter Details Date Type Department Care Team ([facility] st Contact Info) Description 11/09/2024 Telephone [facility] [address] [place] [address] Adal Terrell MD 230 [place] [address] Social History Tobacco Use Types Packs/Day Years [...] Upcoming Encounters Date Type Department Care Team ([facility] st Contact Info) Description 11/29/2024 2:00 PM EDT Telemedicine [facility] MED & PEDS [address] [place] [address] Marci Kennedy RN 505 [place] [address] 12/14/2024 1:15 PM EDT Office Visit [facility] [address] [place] [address] Adal Terrell MD 230 [place] [address] documented as of this encounter Visit Diagnoses Not on filedocumented in this encounter Additional Health Concerns Assessment Noted Time PHQ-9 Depression Total Score: 5 01/27/20 24 10:54 AM EDT documented as of this encounter Care Teams Continuous Mining Machine Company Miner Relationship Specialty Start Date End Date Adal Terrell MD 230 [place] [address] PCP - General Internal Medicine 03/08/14 documented as of this encounter
--- OUTSIDE RECORDS SUMMARY | 2024-11-17 09:41 | XMS_ITS | Encounter Summary ---
Author Organization [facility] [facility] [employer] Address [address] [facility] [address] [place] [address] Care Team Providers Care Diesel Locomotive Firer/Fireman Name Role Phone Adal Terrell MD Primary Care Provide r Reason for Referral * Consultation (Routine) - Closed Specialty Diagnoses / Procedures Referred By Ruth chaidez Referred To Contact Diagnoses Preventative health care Adal Terrell MD [address] [place] [address] Phone: tel: fax: Varsha Woods [address] [place] [address] Phone: tel: fax: Referral ID Status Reason Start Date Expiration Date V isits Requested Visits Authorized [id number] Closed Specialty Services Required 09/22/2024 09/22/2025 12 12 * Neurology (Routine) - Closed Specialty Diagnoses / Procedures Referred By Ruth chaidez Referred To Contact Diagnoses Pain in both wrists Procedures Nerve conduction test Adal Terrell MD [address] [place] [address] Phone: tel: fax: [facility] [address] [place] [address] Phone: tel: fax: Referral ID Status Reason Start Date Expiration Date Visits Re quested Visits Authorized [id number] Closed 09/09/2024 09/09/2025 1 1 Reason for [...] Description 09/09/2024 3:00 PM EST Office Visit [facility] [address] [place] [address] Adal Terrell MD [address] [place] [address] YUNG (obstructive sleep apnea) (Primary Dx); Irritable [...] t he electric, gas, oil or water [employer] threatened to shut off services in your [...] patient was supposed to start APAP at [id number]. She was seen by Neurology/sleep 07/29/2024 who recommended to use Cpap and follow up with them in 3 months Relevant Orders Comprehensive Metabolic Panel (Completed) Lipid Panel, Standard (Completed) TSH with Reflex to Free T4 (Completed) Irritable bowel syndrome with diarrhea Under the care of Gastroenterology, last seen 09/01/2024. She was recommended EGD/[place] Relevant Orders Comprehensive Metabolic Panel (Completed) Lipid [...] PRN Pt evaluated in the past by [facility] Pulmonology, In May 2018 pt had [...] Referred for a repeat Colonoscopy: 2019 at [facility] Relevant Orders Referral to Gynecology Bilateral [...] Referred for a repeat Colonoscopy: 2019 at [facility] * Addendum Note - Adal Mccarthy [...] PRN Pt evaluated in the past by [facility] Pulmonology, In May 2018 pt had [...] Gastroenterology, last seen 09/01/2024. She was recommended EGD/[place] * Assessment & Plan Note - Adal Mccarthy MD - 09/09/2024 2:47 PM EST Associated Problem(s): YUNG (obstructive sleep apnea) S/p Sleep Study Mild degree of sleep apnea. The AHI was 7/hr and oxygen james was 91%. patient was supposed to start APAP at [id number]. She was seen by Neurology/sleep 07/29/2024 who recommended to use Cpap and follow up with them in 3 months documented in this encounter Plan of Treatment Upcoming Encounters Date Type Department Care Team (Late st Contact Info) Description 11/29/2024 2:00 PM EDT Telemedicine [facility]S 505 [place] [address] Marci Kennedy, YANET 505 [place] [address] 12/14/2024 1:15 PM EDT Office Visit [facility] MEDICINE [address] [place] [address] Adal Terrlel MD [address] [place] [address] Scheduled Orders Name Type Priority Associated Diagnoses [...] Free T4 2.55 0.32 - 4.0 uIU/mL [facility] Blood Venous blood specimen / Unknown 09/10/2024 11:04 AM EST 09/10/2024 11:04 AM EST us Adal Mccarthy MD LAB BLOOD ORDERABLES Final Result [facility] [address] [place] [phone] * (ABNORMAL) Lipid Panel, Standard (09/10/2024 11:04 AM EST) Triglycerides 91 <150 mg/dL [facility] Comment:Desirable Triglyceri de: less than 150 mg/dLBorderline High Triglyceride 150-199 mg/dLHigh Triglyceride: 200-499 mg/dLVery High Triglyceride: greater than or equal to 5OO mg/dL Cholesterol 155 <200 mg/dL [facility] Comment:Desirable Cholestero l: less than 200 mg/dLBorderline High Cholesterol: 200-239 mg/dLHigh Cholesterol: greater than 239 mg/dL LDL Cholesterol Calculated 108(H) <100 mg/dL [facility] Comment:Desirable LDL: less than 100 mg/dLNear Optimal/Above Optimal LDL: 110- 129 mg/dLBorderline High LDL: 130-159 mg/dLHigh LDL: 160-189 mg/dLVery High LDL: greater than or equal to 190 mg/dL HDL Cholesterol 29(L) >40 mg/dL [facility] Comment:Desirable HDL: great er than 40 mg/dL Note: This HDL assay may give artificially low results in patients with liver disease. Blood Venous blood specimen / Unknown 09/10/2024 11:04 AM EST 09/10/2024 11:04 AM EST us Adal Mccarthy MD LAB BLOOD ORDERABLES Final Result [facility] [address] [place] [address] [phone] * (ABNORMAL) Comprehensive Metabolic Panel (09/10/2024 11:04 AM EST) Sodium 139 135 - 145 mmol/L [facility] Potassium 4.2 3.3 - 5.1 mmol/L [facility] Chloride 105 96 - 108 mmol/L [facility] Carbon Dioxide 27 22 - 29 mmol/L [facility] Anion Gap 11(L) 12 - 20 [facility] Urea Nitrogen (BUN) 9 9 - 16 mg/dL [facility] Creatinine, Serum 0.81 0.5 - 1.4 mg/dL [facility] Estimated Glomerular Filt Rate >60 [facility] Comment:Chronic Kidney Disea se: Estimated GFR < 60 mL/min/[id number] Kidney Disease: Estimated GFR < 15 mL/min/1.73m2 Glucose 101 60 - 115 mg/dL [facility] Calcium 9.2 8.4 - 10.2 mg/dL [facility] Bilirubin, Total 0.3 0.0 - 1.0 mg/dL [facility] Aspartate Amino Transferase 21 5 - 31 U/L [facility] Alanine Aminotransferase 21 0 - 31 U/L [facility] Total Protein 8.1(H) 6.5 - 8.0 g/dL [facility] Albumin Level 4.2 3.5 - 5.0 g/dL [facility] Alkaline Phosphatase 96 39 - 117 U/L [facility] Blood Venous blood specimen / Unknown 09/10/2024 11:04 AM EST 09/10/2024 11:04 AM EST Adal Mccarthy MD LAB BLOOD ORDERABLES Final Result [facility] [address] [place] [address] [phone] documented in this encounter Visit Diagnoses [...] as of this encounter Care Teams Diesel Locomotive Firer/Fireman Relationship Specialty Start Date End Date Adal Terrell MD [address] [place] [address] PCP - General Internal Medicine 03/08/14 documented as of this encounter
--- OUTSIDE RECORDS SUMMARY | 2024-11-17 09:41 | XMS_ITS | Encounter Summary ---
Author Organization [employer] Address [address] [facility] [address] 7t [place] [address] Care Team Providers Care Youth Care Professional Name Role Phone Adal Terrell MD Primary Care Provide r Reason for Visit * Reason Onset Date Comments Results 08/13/2023 Encounter Details Date Type Department Care Team ([facility] Contact Info) Description 08/13/2023 Telephone [facility] MEDICINE [address] [place], [place] [phone] Adal Terrell MD 230 [place], [place] [phone] Results Social History Tobacco Use Types Packs/Day [...] Info) Description 11/29/2024 2:00 PM EDT Telemedicine [facility] CHC MED & PEDS 505 [place] [address] Marci Kennedy, RN 505 [place] [address] 12/14/2024 1:15 PM EDT Office Visit [facility] MEDICINE 230 [place] [address] Adal Terrell MD 230 [place] [address] documented as of this encounter Visit Diagnoses Not on filedocumented in this encounter Additional Health Concerns Assessment Noted Time PHQ-9 Depression Total Score: 0 09/10/19 23 11:00 AM EST documented as of this encounter Care Teams Youth Care Professional Relationship Specialty Start Date End Date Adal Terrell MD 230 [place] [address] PCP - General Internal Medicine 03/08/14 documented as of this encounter
--- OUTSIDE RECORDS SUMMARY | 2024-11-17 09:41 | XMS_ITS | Encounter Summary ---
Author Organization [employer] Address [address] [facility] [address]t [place] [address] Care Team Providers Care Pail Bailer Name Role Phone dAal Terrell MD Primary Care Provide r Encounter Details Date Type Department Care Team ([facility] st Contact Info) Description 02/05/2024 Orders Only [facility] MEDICINE 230 [place] [address] Adal Terrell MD 230 [place] [address] Social History Tobacco Use Types Packs/Day Years [...] [facility] PEDS 505 [place] [address] Marci Kennedy, RN 505 [place] [address] 12/14/2024 1:15 PM EDT Office Visit [facility] MEDICINE 230 [place] [address] Adal Terrell MD 230 [place] [address] documented as of this encounter Procedures Procedure [...] documented as of this encounter Care Teams Pail Bailer Relationship Specialty Start Date End Date Adal Terrell MD 230 [place] [address] PCP - General Internal Medicine 03/08/14 documented as of this encounter
--- OUTSIDE RECORDS SUMMARY | 2024-11-17 09:41 | XMS_ITS | Clinical Summary ---
Author Organization [facility] it Address [address] [place] [address] Care Team Providers Care Flour Broker Name Role Phone Unavailable Primary Care Provider [...] Documents on File Type Date Recorded Patient Toe Lining Closer Expl anation Health Care Decision (hx) [...]
--- OUTSIDE RECORDS SUMMARY | 2024-11-17 09:41 | XMS_ITS | Encounter Summary ---
Author Organization [employer] Address [address] [facility] [address] 7[address] [place] [address] Care Team Providers Care City Sanitarian Name Role Phone Adal Terrell MD Primary Care Provide r Reason for Visit * Reason Onset Date Comments Letter for School/Work 12/12/2023 Appointment Request 12/12/2023 Encounter Details Date Type Department Care Team ([facility] Contact Info) Description 12/12/2023 Telephone [facility] MEDICINE 230 [place], [place] [phone] Adal Terrell MD 230 [place] [address] Letter for School/Work; Appointment Request Social History [...] [facility] 505 [place] [address] Marci Kennedy, YANET 505 [place] [address] 12/14/2024 1:15 PM EDT Office Visit [facility] MEDICINE [address] [place] [address] Adal Terrell MD 230 [place] [address] documented as of this encounter Visit Diagnoses Not on filedocumented in this encounter Additional Health Concerns Assessment Noted Time PHQ-9 Depression Total Score: 0 09/10/19 23 11:00 AM EST documented as of this encounter Care Teams City Sanitarian Relationship Specialty Start Date End Date Adal Terrell MD 230 [place] [address] PCP - General Internal Medicine 03/08/14 documented as of this encounter
--- OUTSIDE RECORDS SUMMARY | 2024-11-17 09:41 | XMS_ITS | Encounter Summary ---
Author Organization [employer] Address [address] [facility] 7t [place] [address] Care Team Providers Care Lean Manufacturing Leader Name Role Phone Adal Terrell MD Primary Care Provide r Reason for Visit * Reason Onset Date Comments Med Refill 01/02/2023 Encounter Details Date Type Department Care Team ([facility] st Contact Info) Description 01/02/2023 Telephone [facility] MEDICINE [address] [place] [address] [phone] Adal Terrell MD 230 [place] [address] Med Refill Social History Tobacco Use Types [...] Info) Description 11/29/2024 2:00 PM EDT Telemedicine [facility] MED & PEDS 505 [place] [address] Marci Kennedy, RN 505 [place] [address] 12/14/2024 1:15 PM EDT Office Visit [facility] MEDICINE 230 [place] [address] Adal Terrell MD [address] [place] [address] documented as of this encounter Visit Diagnoses Not on filedocumented in this encounter Additional Health Concerns Assessment Noted Time PHQ-9 Depression Total Score: 0 09/10/19 23 11:00 AM EST documented as of this encounter Care Teams Lean Manufacturing Leader Relationship Specialty Start Date End Date Adal Terrell MD [address] [place] [address] PCP - General Internal Medicine 03/08/14 documented as of this encounter
--- OUTSIDE RECORDS SUMMARY | 2024-11-17 09:41 | XMS_ITS | Encounter Summary ---
Author Organization [employer] Address 75 [facility] 7[place] [address] Care Team Providers Care General Production Manager Name Role Phone Adal Trerell MD Primary Care Provide r Reason for Visit * Reason Onset Date Comments Med Refill 11/05/2022 Encounter Details Date Type Department Care Team (Late Contact Info) Description 11/05/2022 Telephone [facility] MEDICINE [address] [place] [address] Adal Terrell MD 230 [place] [address] Med Refill Social History Tobacco Use Types [...] Description 11/29/2024 2:00 PM EDT Telemedicine [facility] CHC MED & PEDS 505 [place] [address] Marci Kennedy, RN 505 [place] [address] 12/14/2024 1:15 PM EDT Office Visit [facility] MEDICINE 230 [place] [address] Adal Terrell MD 230 [place] [address] documented as of this encounter Visit Diagnoses Not on filedocumented in this encounter Additional Health Concerns Assessment Noted Time PHQ-9 Depression Total Score: 0 09/10/19 23 11:00 AM EST documented as of this encounter Care Teams General Production Manager Relationship Specialty Start Date End Date Adal Terrell MD 230 [place] [address] PCP - General Internal Medicine 03/08/14 documented as of this encounter
--- OUTSIDE RECORDS SUMMARY | 2024-11-17 09:41 | XMS_ITS | Encounter Summary ---
Author Organization [employer] Address [address] [facility] [address] [facility] [address] [place] [address] Care Team Providers Care Video Editor Name Role Phone Adal Terrell MD Primary Care Provide r Reason for Visit * Reason Onset Date Comments Med Refill 03/08/2024 Encounter Details Date Type Department Care Team ([facility] Contact Info) Description 03/08/2024 Telephone [facility] MEDICINE 230 [place] [address] Adal Terrell MD 230 [place] [address] Med Refill Social History Tobacco Use Types [...] immediate release tablet To be sent to: [facility] documented in this encounter Plan of Treatment Upcoming Encounters Date Type Department Care Team (Late st Contact Info) Description 11/29/2024 2:00 PM EDT Telemedicine [facility] CHC MED & PEDS 505 [place] [address] Marci Kennedy, RN 505 [place] [address] 12/14/2024 1:15 PM EDT Office Visit [facility] MEDICINE [address] [place] [address] Adal Terrell MD 230 [place] [address] documented as of this encounter Visit Diagnoses Not on filedocumented in this encounter Additional Health Concerns Assessment Noted Time PHQ-9 Depression Total Score: 5 01/27/20 24 10:54 AM EDT documented as of this encounter Care Teams Video Editor Relationship Specialty Start Date End Date Adal Terrell MD 230 [place] [address] PCP - General Internal Medicine 03/08/14 documented as of this encounter
--- OUTSIDE RECORDS SUMMARY | 2024-11-17 09:41 | XMS_ITS | Encounter Summary ---
Author Organization [employer] Address [address] [facility] [address] 7t [place] [address] Care Team Providers Care Breeder Hen Service Technician Name Role Phone Adal Terrell MD Primary Care Provide r Reason for Visit * Reason Onset Date Comments Nurse Triage 03/05/2024 Encounter Details Date Type Department Care Team ([facility] st Contact Info) Description 03/05/[address] [facility] MEDICINE 230 [place], [place] [phone] Adal Terrell MD 230 [place] [address] Nurse Triage Social History Tobacco Use Types [...] 2:00 PM EDT Telemedicine [facility] CHC MED & PEDS 505 [place] [address] Marci [place], RN 505 [place] [address] 12/14/2024 1:15 PM EDT Office Visit [facility] MEDICINE 230 [place] [address] Adal Terrell MD [address] [place] [address] documented as of this encounter Visit Diagnoses Not on filedocumented in this encounter Additional Health Concerns Assessment Noted Time PHQ-9 Depression Total Score: 5 01/27/20 24 10:54 AM EDT documented as of this encounter Care Teams Breeder Hen Service Technician Relationship Specialty Start Date End Date Adal Terrell MD 230 [place] [address] PCP - General Internal Medicine 03/08/14 documented as of this encounter
--- OUTSIDE RECORDS SUMMARY | 2024-11-17 09:41 | XMS_ITS | Encounter Summary ---
Author Organization [employer] Address [address] [facility] [facility] [facility] [address] [place] [address] Care Team Providers Care Circus Laborer Name Role Phone Adal Terrell MD Primary Care Provide r Encounter Details Date Type Department Care Team (Late st Contact Info) Description 02/16/2024 Orders Only [facility] MEDICINE 230 [place], [place] [phone] Provider, MD Tong Social History Tobacco Use [...] [facility] 505 [place] [address] Marci Kennedy, YANET 505 [place] [address] 12/14/2024 1:15 PM EDT Office Visit [facility] MEDICINE 230 [place] [address] Adal Terrell MD 230 [place] [address] documented as of this encounter Procedures Procedure [...] documented as of this encounter Care Teams Circus Laborer Relationship Specialty Start Date End Date Adal Terrell MD 230 [place] [address] PCP - General Internal Medicine 03/08/14 documented as of this encounter
--- OUTSIDE RECORDS SUMMARY | 2024-11-17 09:41 | XMS_ITS | Encounter Summary ---
Author Organization [employer] Address [address] [facility] [address] [address] [place] [address] Care Team Providers Care Seasonal Recruiter Name Role Phone Adal Terrell MD Primary Care Provide r Encounter Details Date Type Department Care Team ([facility] st Contact Info) Description 10/13/2024 Telephone [facility] MEDICINE 230 [place] [address] Adal Terrell MD 230 [place] [address] Social History Tobacco Use Types Packs/Day Years [...] Upcoming Encounters Date Type Department Care Team ([facility] st Contact Info) Description 11/29/2024 2:00 PM EDT Telemedicine [facility] MED & PEDS 505 [place] [address] Marci Kennedy RN 505 [place] [address] 12/14/2024 1:15 PM EDT Office Visit [facility] MEDICINE 230 [place] [address] Adal Terrell MD 230 [place] [address] documented as of this encounter Visit Diagnoses Not on filedocumented in this encounter Additional Health Concerns Assessment Noted Time PHQ-9 Depression Total Score: 5 01/27/20 24 10:54 AM EDT documented as of this encounter Care Teams Seasonal Recruiter Relationship Specialty Start Date End Date Adal Terrell MD 230 [place] [address] PCP - General Internal Medicine 03/08/14 documented as of this encounter
--- OUTSIDE RECORDS SUMMARY | 2024-11-17 09:41 | XMS_ITS | Encounter Summary ---
Author Organization [employer] Address [address] [facility] [address] [place] [address] Care Team Providers Care Dinkey Locomotive Operator Name Role Phone Adal Terrell MD Primary Care Provide r Encounter Details Date Type Department Care Team (Late st Contact Info) Description 11/05/2024 Orders Only [facility] CHC MED & PEDS [address] [place], [place] [phone] Provider, MD Tong Social History Tobacco Use [...] Info) Description 11/29/2024 2:00 PM EDT Telemedicine [facility] CHC MED & PEDS 505 [place] [address] Marci Kennedy, YANET 505 [place] [address] 12/14/2024 1:15 PM EDT Office Visit [facility] MEDICINE 230 [place] [address] Adal Terrell MD 230 [place] [address] documented as of this encounter Procedures Procedure Name Priority Date/Time Associated Diagnosis Comments IRON AND TOTAL IRON BINDING CAPACITY Routine 11/05/2024 2:58 PM EDT CBC Routine 11/05/2024 2:58 PM EDT FERRITIN Routine 11/05/2024 2:58 PM EDT HM COLONOSCOPY Routine 11/02/2024 9:48 AM EDT documented in this encounter Results * Ferritin (11/05/2024 2:58 PM EDT) Ferritin 134 10 - 250 ng/mL [facility] 11/05/2024 2:58 PM EDT 11/05/2024 2:58 PM EDT us Generic External Data Provider LAB BLOOD ORDERAB LES Final Result Performing Organization Address [facility] Co de Phone Number [facility] [address] [place] [phone] * (ABNORMAL) Iron And Total Iron Binding Capacity (11/05/2024 2:58 PM EDT) [facility] Iron 35 30 - 160 mcg/dL [facility] Total Iron Binding Capacity 302 228 - 428 mcg/dL [facility] Percent Iron Saturation 12(L) 15 - 50 % [facility] Unsaturated Iron Binding 267 ug/dL [facility] 11/05/2024 2:58 PM EDT 11/05/2024 2:58 PM EDT us Generic External Data Provider LAB BLOOD ORDERAB LES Final Result Performing Organization Address [facility] Co de Phone Number [facility] [address] [place] [phone] * (ABNORMAL) CBC (11/05/2024 2:58 PM EDT) [facility] White Blood Count 14.9(H) 4.8 - 10.8 X10*3/uL [facility] Red Blood Count 4.57 4.20 - 5.50 X10*6/uL [facility] Hemoglobin 12.9 12.0 - 16.0 g/dl [facility] Hematocrit 38.2 37.0 - 47.0 % [facility] Mean Corpuscular Volume 83.6 80.0 - 98.0 fL [facility] Mean Corpuscular Hemoglobin 28.2 27.0 - 33.0 pg [facility] Mean Corpuscular HGB Conc 33.8 31.0 - 35.0 g/dl [facility] Red Cell Distribution Width 15.6 11.0 - 16.0 % [facility] Platelet Count 352 160 - 400 X10*3/uL [facility] Mean Platelet Volume 9.4 9.4 - 12.3 fL [facility] NRBC Pct Auto 0.0 0.0 - 0.2 /100WBC [facility] NRBC Abs Auto 0.000 0.0 - 0.012 X10*3/uL [facility] 11/05/2024 2:58 PM EDT 11/05/2024 2:58 PM EDT us Generic External Data Provider LAB BLOOD ORDERAB LES Final Result [facility] [address] [place] [phone] [phone] * Hm Colonoscopy (11/02/2024 9:48 AM [...] documented as of this encounter Care Teams Dinkey Locomotive Operator Relationship Specialty Start Date End Date Adal Terrell MD [address] [place] [address] PCP - General Internal Medicine 03/08/14 documented as of this encounter
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
--- OUTSIDE RECORDS SUMMARY | 2024-11-17 09:41 | XMS_ITS | Encounter Summary ---
Author Organization [employer] Address [address] [facility] [facility] [address] 7[address] [place] [address] Care Team Providers Care Feeder Switchboard Operator Name Role Phone Adal Terrell MD Primary Care Provide r Reason for Visit * Reason Onset Date Comments Durable Medical Equipment 11/16/2024 Encounter Details Date Type Department Care Team ([facility] st Contact Info) Description 11/16/2024 Telephone [facility] MEDICINE 230 [place], [place] [phone] Adal Terrell MD 230 [place] [address] Durable Medical Equipment Social History Tobacco Use [facility] 505 [place] [address] Marci Kennedy, YANET [address] [place] [address] 12/14/2024 1:15 PM EDT Office Visit [facility] MEDICINE 230 [place] [address] Adal Terrell MD 230 [place] [address] documented as of this encounter Visit Diagnoses Not on filedocumented in this encounter Additional Health Concerns Assessment Noted Time PHQ-9 Depression Total Score: 5 01/27/20 24 10:54 AM EDT documented as of this encounter Care Teams Feeder Switchboard Operator Relationship Specialty Start Date End Date Adal Terrell MD 230 [place] [address] PCP - General Internal Medicine 03/08/14 documented as of this encounter
--- OUTSIDE RECORDS SUMMARY | 2024-11-17 09:41 | XMS_ITS | Encounter Summary ---
Author Organization [employer] Address 75 [facility] [address] 7t [place] [address] Care Team Providers Care Deaf And Hard Of Hearing Teacher Name Role Phone Adal Terrell MD Primary Care Provide r Reason for Visit * Reason Onset Date Comments Med Refill 10/08/2024 Encounter Details Date Type Department Care Team ([facility] Contact Info) Description 10/08/2024 Telephone [facility] MEDICINE 230 [place] [address] Adal Terrell MD 230 [place] [address] Med Refill Social History Tobacco Use Types [...] immediate release tablet To be sent to: [id number] [address] [place] [address] documented in this encounter Plan of Treatment Upcoming Encounters Date Type Department Care Team (Late st Contact Info) Description 11/29/2024 2:00 PM EDT Telemedicine [facility] CHC MED & PEDS 505 [place] [address] Marci Kennedy, YANET 505 [place] [address] 12/14/2024 1:15 PM EDT Office Visit [facility] MEDICINE [address] [place] [address] Adal Terrell MD [address] [place] [address] documented as of this encounter Visit Diagnoses Not on filedocumented in this encounter Additional Health Concerns Assessment Noted Time PHQ-9 Depression Total Score: 5 01/27/20 24 10:54 AM EDT documented as of this encounter Care Teams Deaf And Hard Of Hearing Teacher Relationship Specialty Start Date End Date Adal Terrell MD 230 [place] [address] PCP - General Internal Medicine 03/08/14 documented as of this encounter
--- OUTSIDE RECORDS SUMMARY | 2024-11-17 09:41 | XMS_ITS | Encounter Summary ---
Author Organization [employer] Address [address] [facility] [address] [facility] [address] [place] [address] Care Team Providers Care Breastfeeding Peer Counselor Name Role Phone Adal Terrell MD Primary Care Provide r Reason for Visit * Reason Comments Med Refill Encounter Details Date Type Department Care Team (Late st Contact Info) Description 07/03/2023 Refill [facility] CHC MED & PEDS [address] [place], [place] [phone] Adal Terrell MD 230 [place], [place] [phone] Low vitamin D level Social History Tobacco [...] 11/29/2024 2:00 PM EDT Telemedicine [facility] CHC MED & PEDS 505 [place] [address] Marci Kennedy, RN 505 [place] [address] 12/14/2024 1:15 PM EDT Office Visit [facility] MEDICINE 230 [place] [address] Adal Terrell MD 230 [place] [address] documented as of this encounter Visit Diagnoses Diagnosis Low vitamin D level documented in this encounter Additional Health Concerns Assessment Noted Time PHQ-9 Depression Total Score: 0 09/10/19 23 11:00 AM EST documented as of this encounter Care Teams Breastfeeding Peer Counselor Relationship Specialty Start Date End Date Adal Terrell MD 230 [place] [address] PCP - General Internal Medicine 03/08/14 documented as of this encounter
--- OUTSIDE RECORDS SUMMARY | 2024-11-17 09:41 | XMS_ITS | Encounter Summary ---
Author Organization [employer] Address [address] [place] [address] Care Team Providers Care Social Services Director Name Role Phone Adal Terrell MD Primary Care Provide r Reason for Visit * Reason Comments Med Refill Encounter Details Date Type Department Care Team ([facility] st Contact Info) Description 07/23/2023 Refill [facility] [address] [place], [place] [phone] Adal Terrell MD [address] [place], [place] [phone] Chronic right-sided low back pain with right-sided [...] Info) Description 11/29/2024 2:00 PM EDT Telemedicine [facility] [address] [place] [address] Marci Kennedy, RN [address] [place] [address] 12/14/2024 1:15 PM EDT Office Visit [facility] [address] [place] [address] Adal Terrell MD [address] [place] [address] documented as of this encounter Visit Diagnoses Diagnosis 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
--- OUTSIDE RECORDS SUMMARY | 2024-11-17 09:41 | XMS_ITS | Clinical Summary ---
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 such as methotrexate and phenytoin, andexposure to nitrous oxide.Mala To et al., [employer]. 1999;131(5):331-9.THIS TEST WAS PERFORMED AT:[facility] [place] [phone] RUCKER MD 09/01/2024 3:07 PM EST 09/01/2024 3:07 PM EST Generic External Data Provider LAB BLOOD ORDERAB LES Final Result Performing Organization Address [facility] Co de Phone Number [facility] [address] [place] [phone] * Hemoglobin A1c (09/01/2024 3:07 PM EST) Hemoglobin A1c 5.9 <6.0 % [facility] Comment:Hemoglobin A1C Refer ence Range Adults: 4.8 - 6.0 % Non diabetic: < 6.0 % Goal: < 7.0 %Additional Action Suggested: > 8.0 %Note: Hemoglobin A1c results are invalid for patients with abnormal amounts of HbF. Blood transfusions may impact the HbA1c concentration in the patient sample. Estimated Average Glucose 123 mg/dL [facility] Comment:eAG = Estimated ave rage glucose which is %A1C expressed asaverage glucose, using the formula of the F4T-NaqlbcmFibnbml Glucose study (ADAG), Diabetes Care, Vol.31,#8,Feb. 2007 09/01/2024 3:07 PM EST 09/01/2024 3:07 PM EST [employer] External Data Provider LAB BLOOD ORDERAB LES Final Result Performing Organization Address [facility] Co de Phone Number [facility] [address] [place] [phone] * BI Mammogram Screening Tomosynthesis Bilateral (08/26/2024 2:40 PM EST) Anatomical Region Laterality Modality Breast Bilateral Mammography 08/26/2024 2:40 PM EST Narrative 09/04/2024 7:21 PM EST ? [facility] ? [address] ?[place], [place] [address] ? Mammography Report ? Signed ? Patient: Hall,Nisa ?MR#: [id number] ?? [id number] ? : 1975 ?Acct:[id number] ? Age/Sex: 48 / F ?ADM Date: 08/26/ ? Loc: HO.MAMMO ? Attending Dr: Adal Alves MD ? Ordering Physician: Adal Alves MD ?Resu ?? lts: 2Benign Findings ? Date of Service: 08/26/ ?Follow Up: 1 Year From Orig ?? inal Mammogram ? Procedure(s): MM tomosynthesis screening BI ?? Accession Number(s): [id number] ? cc: Adal Alves MD ? EXAMINATION: [...] their next mammogram. ? Electronically signed by: ??Shaovnne Corley DO ??09/04/2024 07:18 PM EST ? Dictated By: ?Shavonne Corley DO ? Signed By: ?<Electronically signed by Shavonne Corley, DO in OV> ? 09/04/24 1918 ? DD/ 1440 ? TD/TT: 08/26/24 1450 ? Medical Lab Specialist: ? Procedure Note Rosaura, Image - 09/04/2024 [place] [facility] [address] [place] [address] Mammography Report Signed Patient: Nisa HallMR#: [id number] : 1975Acct:[id number] Age/Sex: 48 / FADM Date: 08/26/24 Loc: DAMIAN Attending Dr: Adal Alves MD Ordering Physician: Adal Alves MDResu lts: 2Benign Findings Date of Service: 08/26/24Follow Up: 1 Year From Orig inal Mammogram Procedure(s): MM tomosynthesis screening BI Accession Number(s): [id number] cc: Adal Alves MD EXAMINATION: MM SCREENING [...] by: Shavonne Corley DO 09/04/2024 07:18 PM [facility] Dictated By: Shavonne Corley DO Signed By: <Electronically signed by Shavonne Corley DO in OV> 09/04/24 1918 DD/ 1440 TD/TT: 08/26/24 1450 Medical Lab Specialist: Adal Mccarthy MD IMG BI PROCEDURES Reji ebenezer Result - Final * HEPATITIS C AB W/REFL TO HCV RNA, QN, PCR (02/05/2022 10:03 AM EDT) HEPATITIS C ANTIBODY NON-REACT [facility] NON-REACT [facility] INDEX 0.03 <1.00 [facility] Comment: ?? HCV antibody was non-reactive. There is no laboratory ?? evidence of HCV infection. ?? In most cases, no further action is required. However, if recent HCV exposure is suspected, a test for HCV RNA (test code 25684) is suggested. ?? For additional information please refer to http://education.[employer]/faq/IQQ64o6 (This link is being provided for informational/ educational purposes only.) ?? 02/05/2022 10:0 3 AM EDT us Adal Mccarthy MD HISTORICAL/NON ORDERA BLE LABS Final Result Performing Organization Address City/[facility]/ZIP Co de Phone Number [facility] [address] * HIV 1/2 ANTIGEN/ANTIBODY,FOURTH GENERATION W/RFL (02/05/2022 9:38 AM EDT) HIV-1/2 ANTIGEN AND ANTIBODIES, 4TH GENERATION W/ REFLEX TNP [facility] Comment: TEST NOT PERFORMED ?? No serum received. 02/05/2022 9:38 AM EDT us Adal Mccarthy MD LAB BLOOD ORDERABLES Final Result Performing Organization Address [facility] Co de Phone Number [facility] [address] * HPV mRNA E6/E7 (06/04/2018 12:00 AM EST) HPV mRNA E6/E7 Not Detected NOT DETECTED [facility] Comment: This test was performed using the APTIMA(R) HPV Assay ([employer] This assay detects E6/E7 viral messenger RNA (mRNA) from 14 high-risk HPV types (16,18,31,33,35,39,45,51, 52,56,58,59,66,68). For additional information please refer to: http://education.[employer].Spire/faq/JHW981q7 (This link is being provided for informational/ educational purposes only.) The analytical performance characteristics of this assay have been determined by [facility] [place], [place]. The modifications have not been cleared or approved by the FDA. This assay has been validated pursuant to the CLIA regulations and is used for clinical purposes. Test Performed by [facility], [facility] [place], [address] [place] [address] Marcos Hughes M.D., Ph.D., Director of Laboratories , CLIA [id number] Please note: ??Effective 04/08/2016, HPV testing will be performed using [facility]'s APTIMA test which targets mRNA. Detecting mRNA instead of DNA, as in older methods, offers significant improvements in specificity. 06/04/2018 us Lisa Goldstein CNM HISTORICAL/NON ORDERABLE LABS Final Result [facility] [address] from Last 3 Months or Most Recently Relevant to Health Maintenance Insurance [employer] Furniture Sales Associate Relationship Specialty Start Date End Date Adal Terrell MD [address] [place] [address] PCP - General Internal Medicine 03/08/14
== END 2024-11-17 10:08 | disposition home or self-care (01) ==
LOC: HO.HGI 08:58
PROVIDERS: PCP Internal Medicine; Visit Provider Internal Medicine
DX: K52.9 Noninfective gastroenteritis and colitis, unspecified (principal); K21.9 Gastro-esophageal reflux disease without esophagitis; R11.10 Vomiting, unspecified; K29.40 Chronic atrophic gastritis without bleeding
CPT/HCPCS: 99214

== ENCOUNTER → 2024-11-17 08:58 | Outpatient (BNVA) | payer MEDICAID, SELFPAY | PROVIDERS: PCP Internal Medicine; Visit Provider Internal Medicine | DX: K52.9 Noninfective gastroenteritis and colitis, unspecified (principal); K21.9 Gastro-esophageal reflux disease without esophagitis; K29.40 Chronic atrophic gastritis without bleeding; R11.10 Vomiting, unspecified | CPT/HCPCS: 99212 ==

== ENCOUNTER 2024-11-27 12:29 | Emergency (ER) | payer MEDICAID, SELFPAY ==
--- NOTE | ~2024-11-27 | CT_ITS ---
CLINICAL HISTORY: R flank pain, urinary sxs CT ABDOMEN AND PELVIS WITHOUT CONTRAST Comparison: CT/REG/SR - CT ABDOMEN PELVIS WO IV CON - 12/13/22 20:28 EDT Findings: No basilar consolidation or pleural effusion. Stable tiny granulomas in the right lung. No acute abnormalities in the unenhanced solid organs. No renal or ureteral calculus. There is diffuse fatty infiltration of the liver. No large calcified gallstone. No AAA. No bowel obstruction, pneumoperitoneum, or pneumatosis. No ascites. No significant mesenteric or paracolic edema. Pelvic contents unremarkable. Normal appendix. The bones are intact. IMPRESSION: 1. No acute obstructive uropathy or urolithiasis. 2. No obstructive or acute inflammatory changes in the gastrointestinal tract. 3. Hepatic steatosis. This document has been electronically signed by: Dena Sung DO on 11/27/2024 16:22:20
[2024-11-27 12:35] VITALS: BP 147/89; PULSE 126; RESP 18; TEMP 36.6; O2SAT 97; BMI 30.4
--- NOTE | 2024-11-27 12:36 | ED_ITS ---
HPI - Abdominal Pain General Chief Complaint: Urogenital-Female Stated Complaint: ? kidney stone Time Seen by Provider: 11/27/24 14:36 Source: patient and RN notes reviewed Mode of arrival: ambulatory Limitations: no limitations History of Present Illness ED Provider: Sydnee Pablo PA-C HPI narrative: This is a 49-year-old female, with a past medical history of asthma, fibromyalgia, hepatic steatosis, migraines, recurrent UTI, who presents emergency department with concerns for right flank pain. Patient reports that she has a longstanding history of frequent urinary tract infections. Patient states that she did have sexual intercourse over the weekend, and denies any concerns for sexually transmitted infections. She states that she then was in a hot tub. She states that over the last 3 days she has had urinary frequency, urgency, and dysuria. She also reports that her urine smells like ?ammonia?. She endorses chills, no fevers. Also endorsing nausea. She states that she went to the [facility] this afternoon and had a urine sample collected and was started on an antibiotic however states that when she went home to wait for the antibiotic to be ready at the pharmacy, her dysuria became worse, and she came to the emergency department. She does report she has had a history of kidney stones before. She otherwise denies any chest pain, shortness of breath, vomiting, diarrhea or constipation. No abnormal vaginal discharge or bleeding. No other complaints or concerns at this time. MD elicited complaint: flank pain Pertinent past history: kidney stones and past UTI Onset (ago): day(s) Pain Consistency: constant Location: suprapubic Severity: moderate Quality: aching Radiation: R flank Migration to: no migration Exacerbating factors: nothing Relieving factors: nothing Associated symptoms: nausea and chills Related Data Home Medications ?Medication ?Instructions ?Recorded ?Confirmed albuterol sulfate 2.5 mg/0.5 mL 5 mg inhalation QID 05/17/20 11/02/24 solution for nebulization montelukast 10 mg tablet 10 mg PO DAILY 05/17/20 11/02/24 (Singulair) omeprazole 40 mg capsule,delayed 40 mg PO BID 05/24/21 11/02/24 release blood sugar diagnostic (FreeStyle #10 ea 07/02/21 11/02/24 Lite Strips) lancets 33 gauge (TRUEplus Lancets) #100 ea 07/02/21 11/02/24 albuterol sulfate 90 mcg/actuation 2 puff PO Q4-6H PRN Shortness Of 12/24/21 11/02/24 aerosol inhaler (ProAir HFA) Breath melatonin 5 mg capsule mg PO 11/17/24 oxycodone 5 mg tablet 5 mg PO BID PRN 11/17/24 Previous Rx's ?Medication ?Instructions ?Recorded loratadine 10 mg tablet (Allergy 10 mg PO DAILY #30 tabs 12/22/21 Relief (loratadine)) cholecalciferol (vitamin D3) 250 250 mcg PO DAILY sleep disorder 08/31/24 mcg (10,000 unit) tablet #90 tabs nortriptyline 10 mg capsule 10 mg PO BEDTIME 90 days #90 caps 11/17/24 melatonin 10 mg tablet 10 mg PO BEDTIME PRN sleep 11/26/24 disturbances #30 tabs cefpodoxime 200 mg tablet 200 mg PO BID 12 days #24 tabs 11/27/24 ondansetron 4 mg disintegrating 4 mg PO Q6H PRN nausea and 11/27/24 tablet vomiting #14 tabs phenazopyridine 100 mg tablet 100 mg PO TID 5 doses #5 tabs 11/27/24 (Pyridium) Allergies Allergy/AdvReac Type Severity Reaction Status Date / Time levofloxacin [From Levaquin] Allergy Intermediate INTERACTED Verified 11/27/24 12:37 W/ANTI DEPRESSANT morphine [MORPHINE] Allergy Intermediate ITCHING, Verified 11/27/24 12:37 HIVES trazodone [TRAZODONE] Allergy Mild TACHYCARDIA Verified 11/27/24 12:37 amitriptyline Allergy Unknown Unknown Verified 11/27/24 12:37 citalopram Allergy Unknown Unknown Verified 11/27/24 12:37 escitalopram Allergy Unknown Unknown Verified 11/27/24 12:37 ibuprofen Allergy Unknown Unknown Verified 11/27/24 12:37 ketorolac Allergy Unknown Unknown Verified 11/27/24 12:37 sertraline Allergy Unknown Unknown Verified 11/27/24 12:37 Sulfa (Sulfonamide Allergy Unknown Unknown Verified 11/27/24 12:37 Antibiotics) topiramate Allergy Unknown Unknown Verified 11/27/24 12:37 trimethoprim Allergy Unknown Unknown Verified 11/27/24 12:37 zolpidem Allergy Unknown Unknown Verified 11/27/24 12:37 NSAIDS (Non-Steroidal AdvReac Severe HYPEREMESIS Verified 11/27/24 12:37 Anti-Inflamma [NSAIDS (NON-STEROIDAL ANTI-INFLAMMA] adhesive tape AdvReac Blister Verified 11/27/24 12:37 From Celexa Allergy Intermediate INTERACTS Uncoded 11/17/24 09:35 W/LEVAQUIN ANTIDEPRESENT Allergy Unknown Unknown Uncoded 11/17/24 09:35 Sulfamethoxazole Allergy Unknown Unknown Uncoded 11/17/24 09:35 toradol Allergy Unknown Unknown Uncoded 11/17/24 09:35 From Ambien AdvReac Severe TACHYCARDIA Uncoded 11/17/24 09:35 From Ultram AdvReac Severe TACHYCARDIA Uncoded 11/17/24 09:35 From ZOLOFT AdvReac Severe TACHYCARDIA Uncoded 11/17/24 09:35 From TORADOL AdvReac Mild STOMACH Uncoded 11/17/24 09:35 UPSET Review of Systems Review of Systems Constitutional: No Weight loss, No Fever, No Chills, No Night Sweats, No Fatigue, No Malaise ENT/Mouth: No Hearing loss, No Ear Pain, No Nasal Congestion, No Sinus Pain, No Hoarseness, No sore throat, No Rhinorrhea, No Swallowing Difficulty Eyes: No Eye Pain, No Swelling, No Redness, No Foreign Body, No Discharge, No Vision Changes Cardiovascular: No Chest Pain, No SOB, No Dyspnea on Exertion, No Orthopnea, No Edema, No Palpitations Respiratory: No Cough, No Sputum, No Wheezing, No Smoke Exposure, No Dyspnea Gastrointestinal: + Nausea, No Vomiting, No Diarrhea, No Constipation, No Abdominal pain, No Hematochezia, No Melena Genitourinary: No irregular bleeding, + Dysuria, + Urinary Frequency, No Hematuria, No Urinary Incontinence/retention, +Urgency, + Flank Pain, No Urinary Flow Changes, No Hesitancy Musculoskeletal: No joint pain, No Myalgias, No Joint Swelling Skin: No Skin Lesions, No rash Neuro: No Weakness, No Numbness, No Paresthesias, No Loss of Consciousness, No Dizziness, No Headache Psych: No Anxiety/Panic, No Depression, No SI/HI/AH/VH, No Social Issues, Heme/Lymph: No Bruising, No Bleeding,No Lymphadenopathy Endocrine: No Polyuria, No Polydipsia, No Temperature Intolerance Yes all other systems are reviewed and are negative Constitutional: Reports as per [facility] Past Medical History Medical History Sleep apnea Chronic back pain GERD (gastroesophageal reflux disease) Cervical radiculopathy Anemia Hx: UTI (urinary tract infection) Fatty liver Hepatic steatosis Migraines Asthma Recurrent UTI Adhesive capsulitis of right shoulder Fibromyalgia Unspecified internal derangement of unspecified knee Surgical History History of esophagogastroduodenoscopy (EGD) H/O colonoscopy History of left oophorectomy Previous section History of partial hysterectomy Family History Family History Father No problems noted. Mother No problems noted. Maternal Aunt Breast cancer Paternal Uncle Cancer Social History Social History Household Members: None Housing: Apartment Are you a primary transitional care liaison to a significant other at home: No Do you presently have visiting nurse or other home services: No Alcohol intake: never Patient Tobacco Use Status: Former Tobacco user Tobacco use type: Cigarette Smoked in Last 30 Days: No Second Hand Smoke Exposure: No Use of substances other than those prescribed or required for medical reasons: Yes Substance Use Type: Marijuana Advance Directives: No Advance Directives Information Provided: No service: No Current occupational status: unemployed Current occupation: [employer] - Right Handed Physical Exam ED Vital Signs: Vital Signs - 24 hr 11/27/24 12:35 11/27/24 15:04 11/27/24 16:27 Temperature 97.9 F 98.7 F Pulse Rate 126 H 85 82 Respiratory Rate 18 20 18 Blood Pressure 147/89 H 113/64 105/63 Pulse Oximetry 97 100 97 Oxygen Delivery Method Room Air Room Air Room Air BMI result Body Mass Index 30.4 Const General: cooperative, comfortable and no acute distress Orientation/consciousness: patient oriented x3 Limitations: no limitations HENMT Head: Yes normal to inspection, Yes normocephalic and Yes atraumatic Ears: hearing grossly normal bilaterally General nose exam: Normal external nose present Face and sinus: Yes normal facial exam Mouth: Normal oral and palatal mucosa present, oropharynx normal and moist mucous membranes Throat: Yes posterior oropharynx normal Eyes General: appearance normal, both eyes and all related structures Eyelids: Yes eyelids normal Conjunctivae: conjunctivae normal Sclerae: sclerae normal Pupils: Equal, round and reactive pupils present EOM: EOMs intact bilaterally Neck Neck: Yes normal visual inspection, Yes full ROM and Yes no lymphadenopathy Lymphatic: no lymphadenopathy noted Chest Chest palpation & inspection: normal inspection of the chest Resp Effort & Inspection: normal respiratory effort and able to speak in complete sentences Auscultation: clear to auscultation bilaterally, no crackles, no rales, no rhonchi and no wheezes Cardio Rate: regular rate Rhythm: regular rhythm Heart sounds: S1 normal heart sound present and S2 normal heart sound present GI Other: Abdomen is soft with tenderness palpation in the suprapubic region. No rebound or guarding. Inspection: Yes normal to inspection Other: Positive right-sided CVA tenderness Skin General skin exam: no rashes or lesions noted Trauma: no lacerations or abrasions Wounds: no wounds Neuro General: patient oriented x3 and moves all extremities Cranial nerves: Yes Equal, round and reactive pupils present Extrem General: Yes normal to inspection Right upper extremity: normal to inspection Left upper extremity: normal to inspection Right lower extremity: normal to inspection Left lower extremity: normal to inspection Course Course Course Narrative: This is an RME performed by Milka Bond CNP: Additional HPI, ROS, PE not included below will be deferred to primary provider. Patient is a 49-year-old female who presents emergency department for evaluation. She thought evaluation at [facility] today due to concern for urinary tract infection, an antibiotic was sent to her pharmacy ?Macrobid. She reports that pain progressively worsened particularly to the right flank which brought her to the emergency department. Plan: Serum labs, urinalysis Reevaluation(s) Reevaluation #1: Patient reporting increased right-sided flank pain therefore Dilaudid 1 mg was ordered Time: 16:16 Reevaluation #2: Patient feeling much better, CT scan does not reveal any evidence of obstructive uropathy. No other findings seen. Urine does appear to be infected, will treat as pyelonephritis. Will discharged on cefpodoxime, Pyridium, and Zofran. Advised to drink plenty of fluids get plenty of rest. Given strict return precautions. She understands and agrees with plan. Patient stable for discharge. Time: 16:51 Medical Decision Making Medical Decision Making [facility] Narrative: This is a 49-year-old female, with a past medical history of gastritis, chronic pain syndrome, fibromyalgia, and chronic UTIs, who presents emergency department with urinary symptoms, and right-sided flank pain. On arrival, patient was tachycardic at 126 and hypertensive at 147/89 - this was repeated after I saw patient, she is normotensive at 113/64, afebrile, and pulse rate of 85. Patient does have mild suprapubic tenderness on examination with right-sided CVA tenderness. Differential diagnoses include pyelonephritis, acute cystitis, obstructive uropathy, UTI, nephrolithiasis, hydronephrosis, JACK. Labs were obtained prior to my assessment, she does have mild leukocytosis at 12.7, chemistry with no significant electrolyte derangement. Urine with trace blood, small leuk esterases, and wbc's. Vaginal swabs were also obtain an ordered by a provider from earlier today from the [facility] in his pending at this time. She has no vaginal discharge or vaginal bleeding complaints. Will medicate with IV fluids, Tylenol, IV ceftriaxone, and Pyridium. Will also obtain CT abdomen and pelvis to rule out obstructive uropathy. Differential Diagnosis Differential Diagnoses: The differential diagnosis associated with the presentation includes See above Lab Data [facility] Lab Attestation statement: I reviewed the patient's lab results. See MDM and course 11/27/24 12:48 11/27/24 12:48 Labs: Lab Results 11/27/24 Range/Units 12:48 WBC 12.7 H (4.8-10.8) X10*3/uL RBC 4.75 (4.20-5.50) X10*6/uL Hgb 13.3 (12.0-16.0) g/dl Hct 40.1 (37.0-47.0) % MCV 84.4 (80.0-98.0) fL MCH 28.0 (27.0-33.0) pg MCHC 33.2 (31.0-35.0) g/dl RDW 14.9 (11.0-16.0) % Plt Count 365 (160-400) X10*3/uL MPV 9.1 L (9.4-12.3) fL Immature Gran % (Auto) 0.4 (0.0-0.4) % Neut % (Auto) 60.7 (45-73) % Lymph % (Auto) 29.2 (20-40) % Mccormick % (Auto) 6.8 (2-11) % Eos % (Auto) 2.0 (0-4) % Baso % (Auto) 0.9 (0-2) % Lymph # (Auto) 3.7 (1.2-4.9) X10*3/uL Mccormick # (Auto) 0.9 (0.1-1.2) X10*3/uL Eos # (Auto) 0.3 (0.0-0.4) X10*3/uL Baso # (Auto) 0.1 (0.0-0.2) X10*3/uL Abs Immat Gran (auto) 0.05 H (0.00-0.03) X10*3/uL Absolute Neuts (auto) 7.7 (2.0-8.3) x10*3/uL Absolute Nucleated RBC 0.000 (0.0-0.012) X10*3/uL Nucleated RBC % (auto) 0.0 (0.0-0.2) /100WBC Sodium 140 (135-145) mmol/L Potassium 3.5 (3.3-5.1) mmol/L Chloride 104 (96-108) mmol/L Carbon Dioxide 25 (22-29) mmol/L Anion Gap 15 (12-20) BUN 9 (9-16) mg/dL Creatinine 0.71 (0.5-1.4) mg/dL Estim Creat Clear Calc 95.7 Estimated GFR > 60 Random Glucose 85 (60-115) mg/dL Calcium 9.3 (8.4-10.2) mg/dL Total Bilirubin 0.3 (0.0-1.0) mg/dL AST 23 (5-31) U/L ALT 27 (0-31) U/L Alkaline Phosphatase 83 (39-117) U/L Total Protein 8.0 (6.5-8.0) g/dL Albumin 4.4 (3.5-5.0) g/dL Beta HCG, Quant < 2 mIU/mL Urine Color Yellow Urine Appearance Clear Urine pH 6.0 (5.0-9.0) Ur Specific Cana 1.010 (1.005-1.025) Urine Protein Negative (Neg-Trace) mg/dL Urine Glucose (UA) Negative (Negative) mg/dL Urine Ketones Negative (Negative) mg/dL Urine Blood Trace H (Negative) Urine Nitrite Negative (Negative) Ur Leukocyte Esterase Small (1+) H (Negative) Urine RBC 0-2 (0-2) /HPF Urine WBC 6-10 H (0-5) /HPF Ur Squamous Epith Cells 0-2 (0-2) /HPF Urine Bacteria Trace (None Seen) Hyaline Casts 0-2 (0-2) /LPF Radiology Impression Discussion of test interpretation with radiology: I have reviewed the radiologist's reading. Radiologist Impression: Findings: No basilar consolidation or pleural effusion. Stable tiny granulomas in the right lung. No acute abnormalities in the unenhanced solid organs. No renal or ureteral calculus. There is diffuse fatty infiltration of the liver. No large calcified gallstone. No AAA. No bowel obstruction, pneumoperitoneum, or pneumatosis. No ascites. No significant mesenteric or paracolic edema. Pelvic contents unremarkable. Normal appendix. The bones are intact. IMPRESSION: 1. No acute obstructive uropathy or urolithiasis. 2. No obstructive or acute inflammatory changes in the gastrointestinal tract. 3. Hepatic steatosis. This document has been electronically signed by: Dena Sung DO on 11/27/2024 16:22:20 Dictated By: Dena Sung MD Medications Administered Discontinued Medications Generic Name Dose Route Start Last Admin Trade Name Freq PRN Reason Stop Dose Admin Ceftriaxone Sodium 1 gm 11/27/24 14:55 11/27/24 15:39 Ceftriaxone Sodium 1 Gm Vial IVPUSH 11/27/24 14:56 1 gm ONCE ONE Administration Hydromorphone HCl 1 mg 11/27/24 16:16 11/27/24 16:20 Hydromorphone Hcl 1 Mg/Ml Syringe IVPUSH 11/27/24 16:17 1 mg ONCE ONE Administration Protocol Acetaminophen 1,000 mg in 100 mls @ 400 mls/hr 11/27/24 14:51 11/27/24 16:27 Ofirmev IV 11/27/24 15:05 Infused ONCE ONE Infusion Sodium Chloride 1,000 mls @ 999 mls/hr 11/27/24 14:55 11/27/24 15:47 Ns IV 11/27/24 15:55 999 mls/hr .Q1H1M ONE Administration Ondansetron HCl 4 mg 11/27/24 14:51 11/27/24 15:38 Ondansetron Hcl 4 Mg/2 Ml Vial IVPUSH 11/27/24 14:52 4 mg ONCE ONE Administration Phenazopyridine HCl 100 mg 11/27/24 14:52 11/27/24 15:45 Phenazopyridine Hcl 100 Mg Tablet PO 11/27/24 14:53 100 mg ONCE ONE Administration Discharge Plan Discharge Clinical Impression: Pyelonephritis Patient Disposition: Home, Self-Care Instructions: Kidney Infection (ED) Additional Instructions: You were seen in the emergency department and you have concerning signs for a kidney infection. Your CT scan today did not show a kidney stone or any inflammatory changes. You do have a fatty liver which you are already aware of. Please drink plenty of fluids and get plenty of rest. Take prescribed antibiotic as directed, cefpodoxime is an antibiotic to be taken twice a day for the next 12 days. Finish the entire course even if your symptoms improve. You may take Pyridium, this is an anesthetic for your bladder. Please be advised that this can cause your urine to become bright orange. Zofran is a medication that can help with nausea and vomiting. Take this as needed. Follow-up with your primary care physician and/or your urologist in regards to this visit. If any new or worsening symptoms occur including but not limited to worsening pain, high fevers not responding to Tylenol, severe chest pain, shortness for breath, severe abdominal pain, please seek emergent care. Prescriptions: New cefpodoxime 200 mg tablet 200 mg PO BID 12 Days Qty: 24 0RF Rx Instructions: must administer with a meal/food ondansetron 4 mg tablet,disintegrating 4 mg PO Q6H PRN (Reason: nausea and vomiting) Qty: 14 0RF phenazopyridine [Pyridium] 100 mg tablet 100 mg PO TID Qty: 5 0RF No Action cholecalciferol (vitamin D3) 250 mcg (10,000 unit) tablet 250 mcg PO DAILY MDD 250mcg Qty: 90 3RF melatonin 10 mg tablet 10 mg PO BEDTIME PRN (Reason: sleep disturbances) Qty: 30 2RF loratadine [Allergy Relief (loratadine)] 10 mg tablet 10 mg PO DAILY Qty: 30 0RF albuterol sulfate [ProAir HFA] 90 mcg/actuation HFA aerosol inhaler 2 puff PO Q4-6H PRN (Reason: Shortness Of Breath) montelukast [Singulair] 10 mg tablet 10 mg PO DAILY albuterol sulfate 2.5 mg/0.5 mL solution for nebulization 5 mg inhalation QID (DME) lancets [TRUEplus Lancets] 33 gauge misc See Rx Instructions Not Applicable DAILY Qty: 100 Rx Instructions: As directed (DME) FreeStyle Lite Strips Strip See Rx Instructions Not Applicable DAILY Qty: 10 Rx Instructions: As directed omeprazole 40 mg capsule,delayed release(DR/EC) 40 mg PO BID oxycodone 5 mg tablet 5 mg PO BID PRN melatonin 5 mg capsule PO nortriptyline 10 mg capsule 10 mg PO BEDTIME 90 Days Qty: 90 0RF Stand Alone Forms: Work/School Release Print Language: Albanian
--- OUTSIDE RECORDS SUMMARY | 2024-11-27 12:54 | XMS_ITS | Encounter Summary ---
Author Organization [employer] Address [address] [place] [address] Care Team Providers Care Operating Manager Name Role Phone Adal Terrell MD Primary Care Provide r Reason for Visit * Reason Onset Date Comments Med Refill 10/08/2024 Encounter Details Date Type Department Care Team ([facility] Contact Info) Description 10/08/2024 Telephone [facility] MEDICINE [address] [place] [address] Adal Terrell MD [address] [place] [address] Med Refill Social History Tobacco Use Types [...] immediate release tablet To be sent to: [id number] [address] [place] [address] documented in this encounter Plan of Treatment Upcoming Encounters Date Type Department Care Team (Late st Contact Info) Description 11/29/2024 2:00 PM EDT Telemedicine [facility] MED & PEDS [address] [place] [address] Marci Kennedy, YANET [address] [place] [address] 12/14/2024 1:15 PM EDT Office Visit [facility] MEDICINE [address] [place] [address] Adal Terrell MD [address] [place] [address] documented as of this encounter Visit Diagnoses Not on filedocumented in this encounter Additional Health Concerns Assessment Noted Time PHQ-9 Depression Total Score: 5 01/27/20 24 10:54 AM EDT documented as of this encounter Care Teams Operating Manager Relationship Specialty Start Date End Date Adal Terrell MD [address] [place] [address] PCP - General Internal Medicine 03/08/14 documented as of this encounter
--- OUTSIDE RECORDS SUMMARY | 2024-11-27 12:54 | XMS_ITS | Encounter Summary ---
Author Organization [employer] Address [address] [place] [address] Care Team Providers Care Lease Examiner Name Role Phone Adal Terrell MD Primary Care Provide r Reason for Visit * Reason Onset Date Comments Med Refill 11/08/2024 Encounter Details Date Type Department Care Team ([facility] Contact Info) Description 11/08/2024 Telephone [facility] MEDICINE [address] [place] [address] Adal Terrell MD [address] [place] [address] Med Refill Social History Tobacco Use Types [...] immediate release tablet To be sent to: [id number] [place], [place] - [address] [facility] documented in this encounter Plan of Treatment Upcoming Encounters Date Type Department Care Team (Late st Contact Info) Description 11/29/2024 2:00 PM EDT Telemedicine [facility] MED & PEDS [address] [place] [address] Marci Kennedy RN [address] [place] [address] 12/14/2024 1:15 PM EDT Office Visit [facility] MEDICINE [address] [place], [place] [phone] Adal Terrell MD [address] [place] [address] documented as of this encounter Visit Diagnoses Not on filedocumented in this encounter Additional Health Concerns Assessment Noted Time PHQ-9 Depression Total Score: 5 01/27/20 24 10:54 AM EDT documented as of this encounter Care Teams Lease Examiner Relationship Specialty Start Date End Date Adal Terrell MD [address] [place] [id number] PCP - General Internal Medicine 03/08/14 documented as of this encounter
--- OUTSIDE RECORDS SUMMARY | 2024-11-27 12:54 | XMS_ITS | Encounter Summary ---
Author Organization [employer] Address [address] [place] [address] Care Team Providers Care Chair Inspector And Leveler Name Role Phone Adal Terrell MD Primary Care Provide r Reason for Visit * Reason Onset Date Comments Med Refill 11/05/2022 Encounter Details Date Type Department Care Team (Late Contact Info) Description 11/05/2022 Telephone [facility] MEDICINE [address] [place] [id number] Adal Terrell MD [address] [place] [address] Med Refill Social History Tobacco Use Types [...] Info) Description 11/29/2024 2:00 PM EDT Telemedicine [facility] CH[facility] MED & PEDS [address] [place] [address] Marci Kennedy, RN [address] [place] [address] 12/14/2024 1:15 PM EDT Office Visit [facility] MEDICINE [address] [place] [address] Adal Terrell MD [address] [place] [address] documented as of this encounter Visit Diagnoses Not on filedocumented in this encounter Additional Health Concerns Assessment Noted Time PHQ-9 Depression Total Score: 0 09/10/19 23 11:00 AM EST documented as of this encounter Care Teams Chair Inspector And Leveler Relationship Specialty Start Date End Date Adal Terrell MD [address] [place] [address] PCP - General Internal Medicine 03/08/14 documented as of this encounter
--- OUTSIDE RECORDS SUMMARY | 2024-11-27 12:54 | XMS_ITS | Encounter Summary ---
Author Organization [employer] Address [address] 7[address] [place] [address] Care Team Providers Care Power Saw Operator Name Role Phone Adal Terrell MD Primary Care Provide r Encounter Details Date Type Department Care Team ([facility] st Contact Info) Description 11/09/2024 Telephone [facility] MEDICINE 230 [place] [address] Adal Terrell MD 230 [place] [address] Social History Tobacco Use Types Packs/Day Years [...] Upcoming Encounters Date Type Department Care Team ([facility] st Contact Info) Description 11/29/2024 2:00 PM EDT Telemedicine [facility] PEDS 505 [place] [address] Marci Kennedy RN 505 [place] [address] 12/14/2024 1:15 PM EDT Office Visit [facility] MEDICINE 230 [place] [address] Adal Terrell MD 230 [place] [address] documented as of this encounter Visit Diagnoses Not on filedocumented in this encounter Additional Health Concerns Assessment Noted Time PHQ-9 Depression Total Score: 5 01/27/20 24 10:54 AM EDT documented as of this encounter Care Teams Power Saw Operator Relationship Specialty Start Date End Date Adal Terrell MD 230 [place] [address] PCP - General Internal Medicine 03/08/14 documented as of this encounter
--- OUTSIDE RECORDS SUMMARY | 2024-11-27 12:54 | XMS_ITS | Encounter Summary ---
Author Organization [employer] Address [address] 7t [place] [address] Care Team Providers Care Nail Technician Teacher Name Role Phone Adal Terrell MD Primary Care Provide r Reason for Visit * Reason Onset Date Comments Appointment Request 03/19/2023 Encounter Details Date Type Department Care Team ([facility] st Contact Info) Description 03/19/2023 Telephone [facility] MEDICINE [address] [place] [address] [phone] Adal Terrell MD 230 [place] [address] Appointment Request Social History Tobacco Use Types [...] EDT Tc from pt requesting to r/s LITHOGRAPHIC PLATEMAKER visit on 03/21/2023 @ 11:30 am. Pt states due to an emergency she has to fly out to [place] and won't be back in two weeks. Please contact pt at [phone] documented in this encounter Plan of Treatment Upcoming Encounters Date Type Department Care Team (Late st Contact Info) Description 11/29/2024 2:00 PM EDT Telemedicine [facility] MED & PEDS 505 [place] [address] Marci Kennedy, RN 505 [place] [address] 12/14/2024 1:15 PM EDT Office Visit [facility] MEDICINE 230 [place] [address] Adal Terrell MD [address] [place] [address] documented as of this encounter Visit Diagnoses Not on filedocumented in this encounter Additional Health Concerns Assessment Noted Time PHQ-9 Depression Total Score: 0 09/10/19 11:00 AM EST documented as of this encounter Care Teams Nail Technician Teacher Relationship Specialty Start Date End Date Adal Terrell MD 230 [place] [address] PCP - General Internal Medicine 03/08/14 documented as of this encounter
--- OUTSIDE RECORDS SUMMARY | 2024-11-27 12:54 | XMS_ITS | Encounter Summary ---
Author Organization [employer] Address [address] 7t [place] [address] Care Team Providers Care Pharmaceutical Worker Name Role Phone Adal Terrell MD Primary Care Provide r Reason for Visit * Reason Comments Female Dysuria Vaginal Itching Encounter Details Date Type Department Care Team ([facility] st Contact Info) Description 11/27/2024 12:20 PM EDT Office Visit [facility] [address] [place] [address] [phone] Name, MD Craig [address] [place] [phone] Urinary tract infection without hematuria, site unspecified (Primary Dx); UTI symptoms Social History Tobacco Use Types Packs/Day Years [...] is your housing situation today? I have amadamatt edmond 01/27/[address] you [...] Sign Reading Time Taken Comments Blood Pressure 123/67 11/27/2024 11:10 AM EDT Pulse 89 11/27/2024 11:10 AM EDT Temperature 37.3 ??C (99.1 ??F) 11/27/2024 11:10 AM E DT Respiratory Rate 18 11/27/2024 11:10 AM EDT Oxygen Saturation 99% 11/27/2024 11:10 AM EDT Inhaled Oxygen Concentration - - Weight 80.9 kg (178 lb 6.4 oz) 11/27/2024 11:10 AM EDT Height - - Body Mass Index 31.6 09/09/2024 2:37 PM EST documented in this encounter Progress Notes * Craig Mallory MD - 11/27/2024 12:20 PM EDT Subjective Patient ID: Nisa Hall is a 49 y.o. female who presents for Female Dysuria and Vaginal Itching. Patient comes complaining of 3 days of dysuria, urinary frequency, suprapubic discomfort, chills, foul-smelling urine. She denies any nausea or vomiting. She has previous history of UTIs. Her last UTI was more than a year ago. She is sexually active. Last sexual activity was about a week ago and she use condoms. She is not having any vaginal discharge. She has a personal history of allergy to Bactrim and quinolones. Review of Systems Constitutional: Positive for chills and fatigue. Negative for fever. HENT: Negative for sore throat. Respiratory: Negative for cough, shortness of breath and wheezing. Cardiovascular: Negative for chest pain, palpitations and leg swelling. Gastrointestinal: Negative for abdominal pain. Genitourinary: See HPI Visit Vitals BP 123/67 (BP Location: Left arm, Patient Position: Sitting, BP Cuff Size: Large adult) Pulse 89 Temp 99.1 ??F (37.3 ??C) (Oral) Resp 18 Wt 178 lb 6.4 oz (80.9 kg) SpO2 99% BMI 31.60 kg/m?? Smoking Status Never BSA 1.9 m?? Objective Physical Exam Constitutional: General: She is not in acute distress. Appearance: She is not ill-appearing or toxic-appearing. Abdominal: Comments: Mild discomfort on deep palpation of the suprapubic area. Latest Reference Range & Units 11/27/24 11:22 Color, UA Yellow Specific [place], UA 1.025 pH, UA 5.5 Ketones, UA Positive Protein, UA Trace Nitrite, UA Negative, None Detected Negative RBC, UA Negative, None Detected Positive ! Clarity, UA Clear Glucose, UA Negative Leukocytes, UA Negative, Rare, Trace Few 15 ! Bilirubin UA Few 15 Urobilinogen, UA 1.0 !: Data is abnormal Assessment/Plan Diagnoses and all orders for this visit: Urinary tract infection without hematuria, site unspecified Comments: Patient's symptoms, exam, urine dipstick are consistent with urinary tract infection. I recommendedthe patient to drink plenty of fluids, I will send a course of Macrobid and Pyridium to the pharmacy. She is encouraged to call or come back if she does not feel much better by next week. We will send her urine for culture and change antibiotic if necessary based on the results. Patient also collected vaginal samples for GC, chlamydia, BV and trichomonas. Further recommendations based on the results. UTI symptoms - POCT urinalysis dipstick manually resulted - Bacterial Vaginosis Panel - Chlamydia/N. Gonorrhoeae RNA, TMA, Urogenitial - Culture, Urine, Routine - CBC auto differential; Future Other orders - phenazopyridine (Pyridium) 100 MG tablet; Take 1 tablet (100 mg) by mouth if needed in the morning, at noon, and at bedtime for bladder spasms for up to 2 days. - nitrofurantoin, macrocrystal-monohydrate, (Macrobid) 100 MG capsule; Take 1 capsule (100 mg) by mouth 2 times daily for 5 days. documented in this encounter Plan of Treatment Upcoming Encounters Date Type Department Care Team (Late st Contact Info) Description 11/29/2024 2:00 PM EDT Telemedicine [facility] CH[facility] MED & PEDS 505 [place] [address] Marci Kennedy RN 505 [place], [place] [phone] 12/14/2024 1:15 PM EDT Office Visit [facility] MEDICINE [address] [place], [place] [phone] Adal Terrell MD 230 [place], [place] [phone] Scheduled Orders Name Type Priority Associated Diagnoses Orde r Schedule Bacterial Vaginosis Panel Microbiology Routine UTI symptoms Ordered: 11/27/2024 Chlamydia/N. Gonorrhoeae RNA, TMA, Urogenitial Microbiology Routine UTI symptoms Ordered: 11/27/2024 Culture, Urine, Routine Microbiology Routine UTI symptoms Ordered: 11/27/2024 CBC auto differential Lab Routine UTI symptoms Expected: 11/27/2024 (Approximate), Expires: 11/27/2025 documented as of this encounter Procedures Procedure Name Priority Date/Time Associated Diagnosis Comments POCT URINALYSIS DIPSTICK Routine 11/27/2024 11:22 AM EDT UTI symptoms documented in this encounter Results * (ABNORMAL) POCT urinalysis dipstick manually resulted (11/27/2024 11:22 AM EDT) Color, UA Yellow Clarity, UA Clear Glucose, UA Negative Bilirubin, UA Few 15 Comment:small Ketones, UA Positive Comment:trace Spec Grav, UA 1.025 Blood, UA Positive(A) Negative, None Detected Comment:small pH, UA 5.5 Protein, UA Trace Urobilinogen, UA 1.0 Leukocytes, UA Few 15(A) Negative, Rare, Trace Comment:small Nitrite, UA Negative Negative, None Detected Urine 11/27/2024 11:2 2 AM EDT us Craig Name POINT OF CARE TEST ENTER/EDIT OR DERABLES Final Result documented in this encounter Visit Diagnoses Diagnosis Urinary tract infection without hematuria, site unspecified- Primary UTI symptoms documented in this encounter Additional Health Concerns Assessment Noted Time PHQ-9 Depression Total Score: 5 01/27/20 24 10:54 AM EDT documented as of this encounter Care Teams Pharmaceutical Worker Relationship Specialty Start Date End Date Adal Terrell MD [address] [place] [address] PCP - General Internal Medicine 03/08/14 documented as of this encounter
--- OUTSIDE RECORDS SUMMARY | 2024-11-27 12:54 | XMS_ITS | Encounter Summary ---
Author Organization [employer] Address [address] 7[address] [place] [address] Care Team Providers Care Graphic Design Specialist Name Role Phone Adal Terrell MD Primary Care Provide r Encounter Details Date Type Department Care Team ([facility] st Contact Info) Description 11/09/2024 Telephone [facility] MEDICINE [address] [place] [address] Adal Terrell MD [address] [place] [address] Social History Tobacco Use Types Packs/Day Years [...] Upcoming Encounters Date Type Department Care Team ([facility] st Contact Info) Description 11/29/2024 2:00 PM EDT Telemedicine [facility] MED & PEDS 505 [place] [address] Marci Kennedy RN [address] [place] [address] 12/14/2024 1:15 PM EDT Office Visit [facility] MEDICINE [address] [place] [address] Adal Terrell MD [address] [place] [address] documented as of this encounter Visit Diagnoses Not on filedocumented in this encounter Additional Health Concerns Assessment Noted Time PHQ-9 Depression Total Score: 5 01/27/20 24 10:54 AM EDT documented as of this encounter Care Teams Graphic Design Specialist Relationship Specialty Start Date End Date Adal Terrell MD [address] [place] [address] PCP - General Internal Medicine 03/08/14 documented as of this encounter
--- OUTSIDE RECORDS SUMMARY | 2024-11-27 12:55 | XMS_ITS | Encounter Summary ---
Author Organization [employer] Address [address] 7t [place] [address] Care Team Providers Care Meterman Name Role Phone Adal Terrell MD Primary Care Provide r Reason for Visit * Reason Onset Date Comments Nurse Triage 03/05/2024 Encounter Details Date Type Department Care Team ([facility] st Contact Info) Description 03/05/2024 Telephone [facility] MEDICINE 230 [place], [place] [phone] Adal Terrell MD 230 [place] [address] Nurse Triage Social History Tobacco Use Types [...] [facility] MED & PEDS 505 [place] [address] Marci Kennedy, RN 505 [place] [address] 12/14/2024 1:15 PM EDT Office Visit [facility] MEDICINE 230 [place] [address] Adal Terrell MD [address] [place] [address] documented as of this encounter Visit Diagnoses Not on filedocumented in this encounter Additional Health Concerns Assessment Noted Time PHQ-9 Depression Total Score: 5 01/27/20 24 10:54 AM EDT documented as of this encounter Care Teams Meterman Relationship Specialty Start Date End Date Adal Terrell MD 230 [place] [address] PCP - General Internal Medicine 03/08/14 documented as of this encounter
--- OUTSIDE RECORDS SUMMARY | 2024-11-27 12:55 | XMS_ITS | Encounter Summary ---
Author Organization [employer] Address [address] 7t [place] [address] Care Team Providers Care Fork Lift Truck Operator Name Role Phone Adal Terrell MD Primary Care Provide r Reason for Visit * Reason Onset Date Comments Letter for School/Work 12/12/2023 Appointment Request 12/12/2023 Encounter Details Date Type Department Care Team ([facility] Contact Info) Description 12/12/2023 Telephone [facility] MEDICINE 230 [place], [place] [phone] Adal Terrell MD 230 [place] [address] Letter for School/Work; Appointment Request Social History [...] Info) Description 11/29/2024 2:00 PM EDT Telemedicine [facility] MED & PEDS 505 [place] [address] Marci Kennedy, YANET 505 [place] [address] 12/14/2024 1:15 PM EDT Office Visit [facility] MEDICINE 230 [place] [address] Adal Terrell MD [address] [place] [address] documented as of this encounter Visit Diagnoses Not on filedocumented in this encounter Additional Health Concerns Assessment Noted Time PHQ-9 Depression Total Score: 0 09/10/19 23 11:00 AM EST documented as of this encounter Care Teams Fork Lift Truck Operator Relationship Specialty Start Date End Date Adal Terrell MD [address] [place] [address] PCP - General Internal Medicine 03/08/14 documented as of this encounter
--- OUTSIDE RECORDS SUMMARY | 2024-11-27 12:55 | XMS_ITS | Encounter Summary ---
Author Organization [employer] Address [address] [place] [address] Care Team Providers Care Finishing Lab Technician Name Role Phone Adal Terrell MD Primary Care Provide r Reason for Visit * Reason Comments Med Refill Encounter Details Date Type Department Care Team ([facility] st Contact Info) Description 04/05/2024 Refill [facility] MEDICINE 230 [place] [address] Ronel Thomas, ANP 230 [place] [address] COVID-19 Social History Tobacco Use Types Packs/Day [...] Description 11/29/2024 2:00 PM EDT Telemedicine [facility] MED & PEDS 505 [place] [address] Marci Kennedy, YANET 505 [place] [address] 12/14/2024 1:15 PM EDT Office Visit [facility] MEDICINE 230 [place] [address] Adal Terrell MD 230 [place] [address] documented as of this encounter Visit Diagnoses Diagnosis COVID-19 documented in this encounter Additional Health Concerns Assessment Noted Time PHQ-9 Depression Total Score: 5 01/27/20 24 10:54 AM EDT documented as of this encounter Care Teams Finishing Lab Technician Relationship Specialty Start Date End Date Adal Terrell MD 230 [place] [address] PCP - General Internal Medicine 03/08/14 documented as of this encounter
--- OUTSIDE RECORDS SUMMARY | 2024-11-27 12:55 | XMS_ITS | Encounter Summary ---
Author Organization [employer] Address [address] 7t [place] [address] Care Team Providers Care Stand In Name Role Phone Adal Terrell MD Primary Care Provide r Encounter Details Date Type Department Care Team ([facility] st Contact Info) Description 10/13/2024 Telephone [facility] MEDICINE 230 [place] [address] Adal Terrell MD [address] [place] [address] Social History Tobacco Use Types Packs/Day Years [...] Upcoming Encounters Date Type Department Care Team ([facility] st Contact Info) Description 11/29/2024 2:00 PM EDT Telemedicine [facility] MED & PEDS 505 [place] [address] Marci Kennedy RN 505 [place] [address] 12/14/2024 1:15 PM EDT Office Visit [facility] MEDICINE 230 [place] [address] Adal Terrell MD 230 [place] [address] documented as of this encounter Visit Diagnoses Not on filedocumented in this encounter Additional Health Concerns Assessment Noted Time PHQ-9 Depression Total Score: 5 01/27/20 24 10:54 AM EDT documented as of this encounter Care Teams Stand In Relationship Specialty Start Date End Date Adal Terrell MD 230 [place] [address] PCP - General Internal Medicine 03/08/14 documented as of this encounter
--- OUTSIDE RECORDS SUMMARY | 2024-11-27 12:55 | XMS_ITS | Encounter Summary ---
Author Organization [employer] Address [address] [facility] [address] [address] 7t [place] [address] Care Team Providers Care Hammer Adjuster Name Role Phone Adal Terrell MD Primary Care Provide r Reason for Visit * Reason Comments Med Refill Encounter Details Date Type Department Care Team ([facility] st Contact Info) Description 07/23/2023 Refill [facility] MEDICINE 230 [place], [place] [phone] Adal Terrell MD 230 [place], [place] [phone] Chronic right-sided low back pain with right-sided [...] [facility] MED [facility]EDS [address] [place] [address] Marci Kennedy, RN 505 [place] [address] 12/14/2024 1:15 PM EDT Office Visit [facility] MEDICINE 230 [place] [address] Adal Terrell MD 230 [place] [address] documented as of this encounter Visit Diagnoses Diagnosis Chronic right-sided low back pain with right-sided sciatica Sacroiliac joint dysfunction Nonallopathic lesion of sacral region, not elsewhere classified documented in this encounter Additional Health Concerns Assessment Noted Time PHQ-9 Depression Total Score: 0 09/10/19 23 11:00 AM EST documented as of this encounter Care Teams Hammer Adjuster Relationship Specialty Start Date End Date Adal Terrell MD 230 [place] [address] PCP - General Internal Medicine 03/08/14 documented as of this encounter
--- OUTSIDE RECORDS SUMMARY | 2024-11-27 12:55 | XMS_ITS | Encounter Summary ---
Author Organization [employer] Address [address] 7t [place] [address] Care Team Providers Care Senior Piping Designer Name Role Phone Adal Terrell MD Primary Care Provide r Reason for Visit * Reason Onset Date Comments Med Refill 02/09/2024 Encounter Details Date Type Department Care Team ([facility] Contact Info) Description 02/09/2024 Telephone [facility] MEDICINE 230 [place] [address] Adal Terrell MD [address] [place] [address] Med Refill Social History Tobacco Use Types [...] immediate release tablet To be sent to: [id number] [place], [place] [address] [facility] documented in this encounter Plan of Treatment Upcoming Encounters Date Type Department Care Team ([facility] st Contact Info) Description 11/29/2024 2:00 PM EDT Telemedicine [facility] MED & PEDS 505 [place] [address] Marci Kennedy, YANET 505 [place] [address] 12/14/2024 1:15 PM EDT Office Visit [facility] MEDICINE 230 [place] [address] Adal Terrell MD 230 [place] [address] documented as of this encounter Visit Diagnoses Not on filedocumented in this encounter Additional Health Concerns Assessment Noted Time PHQ-9 Depression Total Score: 5 01/27/20 24 10:54 AM EDT documented as of this encounter Care Teams Senior Piping Designer Relationship Specialty Start Date End Date Adal Terrell MD 230 [place] [address] PCP - General Internal Medicine 03/08/14 documented as of this encounter
--- OUTSIDE RECORDS SUMMARY | 2024-11-27 12:55 | XMS_ITS | Encounter Summary ---
Author Organization [employer] Address [address] 7[address] [place] [address] Care Team Providers Care Surgery Nurse Name Role Phone Adal Terrell MD Primary Care Provide r Reason for Visit * Reason Onset Date Comments Med Refill 03/08/2024 Encounter Details Date Type Department Care Team ([facility] Contact Info) Description 03/08/2024 Telephone [facility] MEDICINE [address] [place] [address] Adal Terrell MD 230 [place] [address] Med Refill Social History Tobacco Use Types [...] immediate release tablet To be sent to: [facility] documented in this encounter Plan of Treatment Upcoming Encounters Date Type Department Care Team (Late st Contact Info) Description 11/29/2024 2:00 PM EDT Telemedicine [facility] MED & PEDS 505 [place] [address] Marci Kennedy, RN 505 [place] [address] 12/14/2024 1:15 PM EDT Office Visit [facility] MEDICINE [address] [place] [address] Adal Terrell MD 230 [place] [address] documented as of this encounter Visit Diagnoses Not on filedocumented in this encounter Additional Health Concerns Assessment Noted Time PHQ-9 Depression Total Score: 5 01/27/20 24 10:54 AM EDT documented as of this encounter Care Teams Surgery Nurse Relationship Specialty Start Date End Date Adal Terrell MD 230 [place] [address] PCP - General Internal Medicine 03/08/14 documented as of this encounter
--- OUTSIDE RECORDS SUMMARY | 2024-11-27 12:55 | XMS_ITS | Encounter Summary ---
Author Organization [employer] Address [address] [place] [address] Care Team Providers Care Commercial Insulator Name Role Phone Adal Terrell MD Primary Care Provide r Encounter Details Date Type Department Care Team ([facility] st Contact Info) Description 02/05/2024 Orders Only [facility] MEDICINE 230 [place] [address] Adal Terrell MD 230 [place] [address] Social History Tobacco Use Types Packs/Day Years [...] Info) Description 11/29/2024 2:00 PM EDT Telemedicine [facility] MED & PEDS 505 [place] [address] Marci Kennedy, RN 505 [place] [address] 12/14/2024 1:15 PM EDT Office Visit [facility] MEDICINE 230 [place] [address] Adal Terrell MD 230 [place] [address] documented as of this encounter Procedures Procedure [...] documented as of this encounter Care Teams Commercial Insulator Relationship Specialty Start Date End Date Adal Terrell MD [address] [place] [address] PCP - General Internal Medicine 03/08/14 documented as of this encounter
--- OUTSIDE RECORDS SUMMARY | 2024-11-27 12:55 | XMS_ITS | Clinical Summary ---
Author Organization [facility] Address [address] [place] [address] Care Team Providers Care Proteomics Scientist Name Role Phone Unavailable Primary Care Provider [...] patient's age to complete this topic Insurance [facility]
--- OUTSIDE RECORDS SUMMARY | 2024-11-27 12:55 | XMS_ITS | Encounter Summary ---
Author Organization [employer] Address [address] [place] [address] Care Team Providers Care Quality Assurance Project Manager Name Role Phone Adal Terrell MD Primary Care Provide r Encounter Details Date Type Department Care Team (Late st Contact Info) Description 02/16/2024 Orders Only [facility] MEDICINE 230 [place], [place] [phone] Provider, MD Tong Social History Tobacco Use [...] Info) Description 11/29/2024 2:00 PM EDT Telemedicine [facility] MED & PEDS 505 [place] [address] Marci Kennedy, YANET 505 [place] [address] 12/14/2024 1:15 PM EDT Office Visit [facility] MEDICINE 230 [place] [address] Adal Terrell MD [address] [place] [address] documented as of this encounter Procedures Procedure [...] documented as of this encounter Care Teams Quality Assurance Project Manager Relationship Specialty Start Date End Date Adal Terrell MD [address] [place] [address] PCP - General Internal Medicine 03/08/14 documented as of this encounter
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
--- OUTSIDE RECORDS SUMMARY | 2024-11-27 12:55 | XMS_ITS | Encounter Summary ---
Author Organization [employer] Address [address] [place] [address] Care Team Providers Care Tank Truck Operator Name Role Phone Adal Terrell MD Primary Care Provide r Reason for Visit * Reason Onset Date Comments Results 08/13/2023 Encounter Details Date Type Department Care Team ([facility] Contact Info) Description 08/13/[address] [facility] [address] [place], [place] [phone] Adal Terrell MD [address] [place], [place] [phone] Results Social History Tobacco Use Types Packs/Day [...] Description 11/29/2024 2:[address] [facility] [address] [place] [address] Marci Kennedy, RN [address] [place] [address] 12/14/2024 1:15 PM EDT Office Visit [facility] [address] [place] [address] Adal Terrell MD [address] [place] [address] documented as of this encounter Visit Diagnoses Not on filedocumented in this encounter Additional Health Concerns Assessment Noted Time PHQ-9 Depression Total Score: 0 09/10/19 23 11:00 AM EST documented as of this encounter Care Teams Tank Truck Operator Relationship Specialty Start Date End Date Adal Terrell MD [address] [place] [address] PCP - General Internal Medicine 03/08/14 documented as of this encounter
--- OUTSIDE RECORDS SUMMARY | 2024-11-27 12:55 | XMS_ITS | Clinical Summary ---
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 ORDERAB LES Final Result [facility] [address] [place] [phone] * Methylmalonic Acid (09/01/2024 3:07 PM EST) Methylmalonic Acid 103 55 - 335 nmol/L [facility] Comment: Serum methylmalonic acid (MMA) [...] outcomes,such as neural tube defects and intrauterine growthrestriction.[employer] utilized Multi-Modal Decomposition(MMD) analysis to establish first and second trimester-specific MMA reference intervals in , as givenbelow:MMA, First trimester (<13 wks gestation): 58-167 nmol/LMMA, Second trimester (13-23 wks gestation):63-241 nmol/LThis test was developed and its analytical performancecharacteristics have been determined by [employer]. It has not been cleared or approved by theFDA. This assay has been validated pursuant to the CLIAregulations and is used for clinical purposes.THIS TEST WAS PERFORMED AT:[employer] [id number] [place], [place] ??[id number] W. MASON,MD,PHD 09/01/2024 3:07 PM EST 09/01/2024 3:07 PM EST Generic External Data Provider LAB BLOOD ORDERAB LES Final Result Performing Organization Address [facility] Phone Number [facility] [address] [place] [phone] * Tissue Transglutaminase Antibody, IgA (09/01/2024 3:07 PM EST) Transglutaminase IgA <1.0 U/mL [facility] Comment:Value Interpretation ----- <15.0 Antibody not detected> or = 15.0 Antibody detectedTHIS TEST WAS PERFORMED AT:[employer] [place] [phone] RUCKER MD 09/01/2024 3:07 PM EST 09/01/2024 3:07 PM EST Generic External Data Provider LAB BLOOD ORDERAB LES Final Result Performing Organization Address [facility] [address] [place] [phone] * (ABNORMAL) Immunoglobulins, Quantitative, IgA, IgG, IgM (09/01/2024 3:07 PM EST) IMMUNOGLOBULIN G 1383 600 - 1640 mg/dL [facility] IMMUNOGLOBULIN A 581(A) 47 - 310 mg/dL [facility] Immunoglobulin M 115 50 - 300 mg/dL [facility] Comment:THIS TEST WAS PERFOR MED AT:[employer] [place] [id number] RUCKER MD 09/01/2024 3:07 PM EST 09/01/2024 3:07 PM EST Generic External Data Provider LAB BLOOD ORDERAB LES Final Result Performing Organization Address [facility] Co de Phone Number [facility] [address] [place] [phone] * Homocysteine (09/01/2024 3:07 PM EST) Homocysteine 7.3 <10.4 umol/L [facility] Comment:Homocysteine is incr eased by functional deficiency offolate or vitamin B12. Testing for methylmalonic aciddifferentiates between these deficiencies. Other causesof increased homocysteine include renal failure, folateantagonists such as methotrexate and phenytoin, andexposure to nitrous oxide.Mala To, et al., [place] Procedural Nurse Med. 1999;131(5):331-9.THIS TEST WAS PERFORMED AT:[employer] [place] [id number] RUCKER MD 09/01/2024 3:07 PM EST 09/01/2024 3:07 PM EST [employer] External Data Provider LAB BLOOD ORDERAB LES Final Result Performing Organization Address [facility] de Phone Number [facility] [address] [place] [phone] * Hemoglobin A1c (09/01/2024 3:07 PM EST) Hemoglobin A1c 5.9 <6.0 % [facility] Comment:Hemoglobin A1C Refer ence Range Adults: 4.8 - 6.0 % Non diabetic: < 6.0 % Goal: < 7.0 %Additional Action Suggested: > 8.0 %Note: Hemoglobin A1c results are invalid for patients with abnormal amounts of HbF. Blood transfusions may impact the HbA1c concentration in the patient sample. Estimated Average Glucose 123 mg/dL [facility] Comment:eAG = Estimated ave rage glucose which is %A1C expressed asaverage glucose, using the formula of the C0Y-BuzxfzjGedieeh Glucose study (ADAG), Diabetes Care, Vol.31,#8,2007 09/01/2024 3:07 PM EST 09/01/2024 3:07 PM EST us Generic External Data Provider LAB BLOOD ORDERAB LES Final Result [facility] [address] [facility] [place] [phone] [phone] * BI Mammogram Screening Tomosynthesis Bilateral (08/26/2024 2:40 PM EST) Anatomical Region Laterality Modality Breast Bilateral Mammography 08/26/2024 2:40 PM EST Narrative 09/04/2024 7:21 PM EST ? [facility] ? [address] ?[place] [address] ? Mammography Report ? Signed ? Patient: Hall,Nisa ?MR#: [id number] ?? [id number] ? : 1975 ?Acct:[id number] ? Age/Sex: 48 / F ?ADM Date: 08/26/24 ? Loc: HO.MAMMO ? Attending Dr: Adal Alves MD ? Ordering Physician: Adal Alves MD ?Resu ?? lts: 2Benign Findings ? Date of Service: 08/26/24 ?Follow Up: 1 Year From Orig ?? inal Mammogram ? Procedure(s): MM tomosynthesis screening BI ?? Accession Number(s): [id number] ? cc: Adal Alves MD ? EXAMINATION: [...] ? Signed By: ?<Electronically signed by Shavonne Corley DO in OV> ? 09/04/24 1918 ? DD/ 1440 ? TD/TT: 08/26/24 1450 ? Pile Fabric Knitter: ? Procedure Note Rosaura, Image - 09/04/2024 [facility] [address] [place] [address] Dr. [place], [place] [address] Mammography Report Signed Patient: Bimal Hall#: [id number] : 1975Acct:[id number] Age/Sex: 48 / FADM Date: 08/26/24 Loc: DAMIAN Attending Dr: Adal Alves MD Ordering Physician: Adal Alves MDResu lts: 2Benign Findings Date of Service: 08/26/24Follow Up: 1 Year From Orig inal Mammogram Procedure(s): MM tomosynthesis screening BI Accession Number(s): [id number] cc: Adal Alves MD EXAMINATION: MM SCREENING [...] 09/04/24 1918 DD/ 1440 TD/TT: 08/26/24 1450 Pile Fabric Knitter: us Adal Mccarthy MD IMG BI PROCEDURES Reji ebenezer Result - Final * HEPATITIS C AB W/REFL TO HCV RNA, QN, PCR (02/05/2022 10:03 AM EDT) HEPATITIS C ANTIBODY NON-REACT HENRIQUE NON-REACT HENRIQUE [facility] INDEX 0.03 <1.00 [facility] Comment: ?? HCV antibody was non-reactive. There is no laboratory ?? evidence of HCV infection. ?? In most cases, no further action is required. However, if recent HCV exposure is suspected, a test for HCV RNA (test code 15552) is suggested. ?? For additional information please refer to http://[facility].Candid io/faq/FSB12y8 (This link is being provided for informational/ educational purposes only.) ?? 02/05/2022 10:0 3 AM EDT us Adal Mccarthy MD HISTORICAL/NON ORDERA BLE LABS Final Result Performing Organization Address [facility] Co de Phone Number [facility] [address] * HIV 1/2 ANTIGEN/ANTIBODY,FOURTH GENERATION W/RFL (02/05/2022 9:38 AM EDT) HIV-1/2 ANTIGEN AND ANTIBODIES, 4TH GENERATION W/ REFLEX [facility] Comment: TEST NOT PERFORMED ?? No serum received. 02/05/2022 9:38 AM EDT Adal Mccarthy MD LAB BLOOD ORDERABLES Final Result Performing Organization Address [facility] Phone Number [facility] [place] [address], * HPV mRNA E6/E7 (06/04/2018 12:00 AM EST) HPV mRNA E6/E7 Not Detected NOT DETECTED [facility] Comment: This test was performed using the APTIMA(R) HPV Assay ([employer] This assay detects E6/E7 viral messenger RNA (mRNA) from 14 high-risk HPV types (16,18,31,33,35,39,45,51, 52,56,58,59,66,68). For additional information please refer to: http://[facility].Candid io/faq/MMA351y4 (This link is being provided for informational/ educational purposes only.) The analytical performance characteristics of this assay have been determined by [employer] [place], [place]. The modifications have not been cleared or approved by the FDA. This assay has been validated pursuant to the CLIA regulations and is used for clinical purposes. Test Performed by [facility], [employer] [facility], [address] [place] [address] Marcos Hughes M.D., Ph.D., Director of Laboratories , CLIA [id number] Please note: ??Effective 04/08/2016, HPV testing will be performed using [employer] APTIMA test which targets mRNA. Detecting mRNA instead of DNA, as in older methods, offers significant improvements in specificity. 06/04/2018 us Lisa Goldstein CNM HISTORICAL/NON ORDERABLE LABS Final Result [facility] [address] from Last 3 Months or Most Recently Relevant to Health Maintenance Insurance [email or web address] Care Teams Fibre Composite Technician Relationship Specialty Start Date End Date Adal Terrell MD [address] [place] [phone] PCP - General Internal Medicine 03/08/14
--- OUTSIDE RECORDS SUMMARY | 2024-11-27 12:55 | XMS_ITS | Clinical Summary ---
Author Organization [facility] it Address [address] [place] [address] Care Team Providers Care Firearms Assembly Supervisor Name Role Phone Unavailable Primary Care Provider [...] Documents on File Type Date Recorded Patient Drug Safety Assistant Expl anation Health Care Decision (hx) 07/06/2020 [...]
--- OUTSIDE RECORDS SUMMARY | 2024-11-27 12:55 | XMS_ITS | Encounter Summary ---
Author Organization [employer] Address [address] [place] [address] Care Team Providers Care Lamp Shade Joiner Name Role Phone Adal Terrell MD Primary Care Provide r Reason for Visit * Reason Comments Med Refill Encounter Details Date Type Department Care Team (Late st Contact Info) Description 07/03/2023 Refill [facility] [address] [place], [place] [phone] Adal Terrell MD [address] [place], [place] [phone] Low vitamin D level Social History Tobacco [...] [facility] [address] [place] [address] Marci Kennedy, RN [address] [place] [address] 12/14/2024 1:15 PM EDT Office Visit [facility] [address] [place] [address] Adal Terrell MD [address] [place] [address] documented as of this encounter Visit Diagnoses Diagnosis Low vitamin D level documented in this encounter Additional Health Concerns Assessment Noted Time PHQ-9 Depression Total Score: 0 09/10/19 23 11:00 AM EST documented as of this encounter Care Teams Lamp Shade Joiner Relationship Specialty Start Date End Date Adal Terrell MD [address] [place] [address] PCP - General Internal Medicine 03/08/14 documented as of this encounter
--- OUTSIDE RECORDS SUMMARY | 2024-11-27 12:55 | XMS_ITS | Encounter Summary ---
Author Organization [employer] Address [address] [facility] 7t [place] [address] Care Team Providers Care Video Control Operator Name Role Phone Adal Terrell MD Primary Care Provide r Reason for Visit * Reason Onset Date Comments Appointment Request 10/29/2022 Encounter Details Date Type Department Care Team ([facility] st Contact Info) Description 10/29/2022 Telephone [facility] [address] [place] [phone] Adal Terrell MD [address] [place] [address] Appointment Request Social History Tobacco Use Types [...] only with him. Please contact pt at [phone] documented in this encounter Plan of Treatment Upcoming Encounters Date Type Department Care Team (Late st Contact Info) Description 11/29/2024 2:00 PM EDT Telemedicine [facility] [address] [place] [address] Marci Kennedy, RN [address] [place] [address] 12/14/2024 1:15 PM EDT Office Visit [facility] [address] [place] [address] Adal Terrell MD [address] [place] [address] documented as of this encounter Visit Diagnoses Not on filedocumented in this encounter Additional Health Concerns Assessment Noted Time PHQ-9 Depression Total Score: 0 09/10/19 23 11:00 AM EST documented as of this encounter Care Teams Video Control Operator Relationship Specialty Start Date End Date Adal Terrell MD [address] [place] [address] PCP - General Internal Medicine 03/08/14 documented as of this encounter
--- OUTSIDE RECORDS SUMMARY | 2024-11-27 12:55 | XMS_ITS | Encounter Summary ---
Author Organization [employer] Address [address] [place] [address] Care Team Providers Care Supervisor Machine Workers Name Role Phone Adal Terrell MD Primary Care Provide r Encounter Details Date Type Department Care Team (Late st Contact Info) Description 11/05/2024 Orders Only [facility] [address] [place], [place] [phone] Provider, MD Tong Social History Tobacco Use [...] 11/29/2024 2:00 PM EDT Telemedicine [facility] [address] [place] [address] Marci Kennedy, YANET [address] [place] [address] 12/14/2024 1:15 PM EDT Office Visit [facility] [address] [place] [address] Adal Terrell MD [address] [place] [address] documented as of this encounter Procedures Procedure Name Priority Date/Time Associated Diagnosis Comments IRON AND TOTAL IRON BINDING CAPACITY Routine 11/05/2024 2:58 PM EDT CBC Routine 11/05/2024 2:58 PM EDT FERRITIN Routine 11/05/2024 2:58 PM EDT HM COLONOSCOPY Routine 11/02/2024 9:48 AM EDT documented in this encounter Results * Ferritin (11/05/2024 2:58 PM EDT) Ferritin 134 10 - 250 ng/mL [facility] 11/05/2024 2:58 PM EDT 11/05/2024 2:58 PM EDT us Generic External Data Provider LAB BLOOD ORDERAB LES Final Result Performing Organization Address [facility] Co de Phone Number [facility] [address] [place] [phone] * (ABNORMAL) Iron And Total Iron Binding Capacity (11/05/2024 2:58 PM EDT) [facility] Iron 35 30 - 160 mcg/dL [facility] Total Iron Binding Capacity 302 228 - 428 mcg/dL [facility] Percent Iron Saturation 12(L) 15 - 50 % [facility] Unsaturated Iron Binding 267 ug/dL [facility] 11/05/2024 2:58 PM EDT 11/05/2024 2:58 PM EDT us Generic External Data Provider LAB BLOOD ORDERAB LES Final Result Performing Organization Address [facility] Co de Phone Number [facility] [address] [place] [phone] * (ABNORMAL) CBC (11/05/2024 2:58 PM EDT) [facility] White Blood Count 14.9(H) 4.8 - 10.8 X10*3/uL [facility] Red Blood Count 4.57 4.20 - 5.50 X10*6/uL [facility] Hemoglobin 12.9 12.0 - 16.0 g/dl [facility] Hematocrit 38.2 37.0 - 47.0 % [facility] Mean Corpuscular Volume 83.6 80.0 - 98.0 fL [facility] Mean Corpuscular Hemoglobin 28.2 27.0 - 33.0 pg [facility] Mean Corpuscular HGB Conc 33.8 31.0 - 35.0 g/dl [facility] Red Cell Distribution Width 15.6 11.0 - 16.0 % [facility] Platelet Count 352 160 - 400 X10*3/uL [facility] Mean Platelet Volume 9.4 9.4 - 12.3 fL [facility] NRBC Pct Auto 0.0 0.0 - 0.2 /100WBC [facility] NRBC Abs Auto 0.000 0.0 - 0.012 X10*3/uL [facility] 11/05/2024 2:58 PM EDT 11/05/2024 2:58 PM EDT us Generic External Data Provider LAB BLOOD ORDERAB LES Final Result [facility] [address] [place] [phone] * Hm Colonoscopy (11/02/2024 9:48 AM [...] as of this encounter Care Teams Supervisor Machine Workers Relationship Specialty Start Date End Date Adal Terrell MD [address] [place] [phone] PCP - General Internal Medicine 03/08/14 documented as of this encounter
--- OUTSIDE RECORDS SUMMARY | 2024-11-27 12:55 | XMS_ITS | Encounter Summary ---
Author Organization [facility] Address [address] [facility] [address]t [place] [address] Care Team Providers Care Engine Research Engineer Name Role Phone Adal Terrell MD Primary Care Provide r Reason for Visit * Reason Onset Date Comments Med Refill 01/02/2023 Encounter Details Date Type Department Care Team ([facility] st Contact Info) Description 01/02/2023 Telephone [facility] [address] [place] [address] [phone] Adal Terrell MD [address] [place] [address] Med Refill Social History Tobacco Use Types [...] Description 11/29/2024 2:00 PM EDT Telemedicine [facility] [address] [place] [address] Marci Kennedy, RN [address] [place] [address] 12/14/2024 1:15 PM EDT Office Visit [facility] [address] [place] [address] Adal Terrell MD [address] [place] [address] documented as of this encounter Visit Diagnoses Not on filedocumented in this encounter Additional Health Concerns Assessment Noted Time PHQ-9 Depression Total Score: 0 09/10/19 23 11:00 AM EST documented as of this encounter Care Teams Engine Research Engineer Relationship Specialty Start Date End Date Adal Terrell MD [address] [place] [address] PCP - General Internal Medicine 03/08/14 documented as of this encounter
[2024-11-27 12:58] LABS: MANUAL DIFF FLAG NO
[2024-11-27 13:00] LABS: Basophils Absolute Auto 0.1 X10*3/uL (0.0-0.2); Basophils Percent Auto 0.9 % (0-2); Eosinophils Absolute Auto 0.3 X10*3/uL (0.0-0.4); Hematocrit 40.1 % (37.0-47.0); Hemoglobin 13.3 g/dl (12.0-16.0); Imm Gran Abs Auto 0.05 X10*3/uL (0.00-0.03); Imm Gran Pct Auto 0.4 % (0.0-0.4); Lymphocytes Absolute Auto 3.7 X10*3/uL (1.2-4.9); Lymphocytes Percent Auto 29.2 % (20-40); Mean Corpuscular HGB Conc 33.2 g/dl (31.0-35.0); Mean Corpuscular Volume 84.4 fL (80.0-98.0); Mean Platelet Volume 9.1 fL (9.4-12.3); Monocytes Absolute Auto 0.9 X10*3/uL (0.1-1.2); Monocytes Percent Auto 6.8 % (2-11); Neutrophils Absolute Auto 7.7 x10*3/uL (2.0-8.3); Neutrophils Percent Auto 60.7 % (45-73); Platelet Count 365 X10*3/uL (160-400); Red Blood Count 4.75 X10*6/uL (4.20-5.50); Red Cell Distribution Width 14.9 % (11.0-16.0); White Blood Count 12.7 X10*3/uL (4.8-10.8)
[2024-11-27 13:08] LABS: Appearance Urine Clear; Color Urine Yellow; Glucose Urine UA Negative (Negative); Leukocyte Esterase Urine Small (1+) (Negative); Nitrite Urine Negative (Negative); UMIC TRIGGER UACC YES; Urine Blood Trace (Negative); Urine Ketones Negative (Negative); Urine Protein Negative (Neg-Trace)
[2024-11-27 13:13] LABS: Bacteria Urine Trace (None Seen); Hyaline Casts Urine 0-2 /LPF (0-2); RBC Urine 0-2 /HPF (0-2); Squamous Epithelial Cell Urine 0-2 /HPF (0-2); UACC Culture Trigger YES
[2024-11-27 13:15] LABS: Alanine Aminotransferase 27 U/L (0-31); Albumin Level 4.4 g/dL (3.5-5.0); Alkaline Phosphatase 83 U/L (39-117); Anion Gap 15 (12-20); Aspartate Amino Transferase 23 U/L (5-31); Bilirubin Total 0.3 mg/dL (0.0-1.0); Blood Urea Nitrogen 9 mg/dL (9-16); Calcium 9.3 mg/dL (8.4-10.2); Carbon Dioxide 25 mmol/L (22-29); Chloride 104 mmol/L (96-108); Creatinine Clr Calc Pharmacy 95.7; Estimated Glomerular Filt Rate > 60; Glucose Random 85 mg/dL (60-115); Potassium 3.5 mmol/L (3.3-5.1); Sodium 140 mmol/L (135-145)
[2024-11-27 15:04] VITALS: BP 113/64; PULSE 85; RESP 20; O2SAT 100
[2024-11-27] MEDS: ondansetron HCL 4 MG/2 ML VIAL IVPUSH (15:38)
[2024-11-27] MEDS: cefTRIAXone sodium 1 GM VIAL IVPUSH (15:39)
[2024-11-27] MEDS: Phenazopyridine HCL 100 MG TABLET PO (15:45)
[2024-11-27] MEDS: Acetaminophen 1,000 MG/100 ML PIGGYBACK 400 MG IV (15:46)
[2024-11-27] MEDS: 0.9 % Sodium Chloride 1,000 ML 999 ML IV (15:47)
[2024-11-27 16:05] LABS: HCG Quantitative < 2 mIU/mL
[2024-11-27] MEDS: HYDROmorphone HCl 1 MG/ML SYRINGE IVPUSH (16:20)
[2024-11-27 16:27] VITALS: BP 105/63; PULSE 82; RESP 18; TEMP 37.1; O2SAT 97
[2024-11-27 17:40] VITALS: BP 105/63; PULSE 82; RESP 18; TEMP 37.1; O2SAT 97
[2024-11-28 11:42] LABS: Bacterial Vaginosis PCR POSITIVE (Negative); Candida Group PCR NOT DETECTED (Not Detect); Candida glab krusei PCR NOT DETECTED (Not Detect); Trichomonas vaginalis PCR NOT DETECTED (Not Detect)
[2024-11-28 12:18] LABS: CT PCR NOT DETECTED (Not Detect.); NG PCR NOT DETECTED (Not Detect.)
== END 2024-11-27 17:41 | disposition home or self-care (01) ==
PROVIDERS: Internal Medicine Geriatric Medicine; Nurse Practitioner Family; Physician Assistant Medical; Emergency Provider Emergency Medicine; PCP Internal Medicine
DX: N12 Tubulo-interstitial nephritis, not specified as acute or chronic (principal); R10.9 Unspecified abdominal pain; K76.0 Fatty (change of) liver, not elsewhere classified; Z79.899 Other long term (current) drug therapy
CPT/HCPCS: 36415; 74176; 80053; 81001; 81003; 81515; 84702; 85025; 87040; 87086; 87088; 87186; 87491; 87591; 96361; 96374; 96375; 99284; J0131; J0696; J1171; J2405

== ENCOUNTER → 2024-11-27 14:51 | Outpatient (BNV) | payer MEDICAID, SELFPAY | PROVIDERS: Emergency Provider Emergency Medicine; PCP Internal Medicine; Visit Provider Radiology Diagnostic Radiology | DX: K76.0 Fatty (change of) liver, not elsewhere classified (principal) | CPT/HCPCS: 74176 ==

== ENCOUNTER 2024-11-29 17:20 | Emergency (ER) | payer MEDICAID, SELFPAY ==
--- NOTE | ~2024-11-29 | CT_ITS ---
CLINICAL HISTORY: Flank pain being treated for pyelonephritis. CT of the abdomen and pelvis without intravenous contrast. Comparison 11/27/2024. Findings: There is fatty infiltration of the liver. The gallbladder is unremarkable. No renal or definite ureteral stones are seen. There is no hydronephrosis. The spleen and pancreas are unremarkable. No abdominal aortic aneurysm. No diverticulitis is identified. Normal appendix. There is no bowel obstruction. The bladder is nondilated. No definite ovarian abnormality is seen. There are several small granulomas in the lower lungs. There is severe facet disease in the lower lumbar spine. Impression: No renal or definite ureteral stones. Other findings as above. This document has been electronically signed by: Bhargav Pedersen MD on 11/29/2024 18:59:18
[2024-11-29 17:39] VITALS: BP 139/78; PULSE 100; RESP 18; TEMP 36.8; O2SAT 100; BMI 31.4
--- NOTE | 2024-11-29 17:44 | ED_ITS ---
HPI - General Adult General Chief complaint: Urogenital-Female Stated complaint: lower back/kidney pain Time Seen by Provider: 11/29/24 20:16 Source: patient Mode of arrival: ambulatory Limitations: no limitations History of Present Illness ED Provider: Lori Bond NP HPI narrative: Patient is a 49-year-old female who presents emergency department for evaluation. Reports that she is currently being treated for a kidney infection of which she was diagnosed 2 days ago, she has taken 3 doses of antibiotics. She felt that this evening she was having increased pain to the right back which prompted her to seek evaluation in the emergency department to make sure that there was no complication. She has not had any nausea or vomiting she is able to tolerate taking her antibiotics. Denies any fevers or chills. She has an allergy to NSAID, she does have Percocet which she is prescribed for chronic pains, states that she only takes this at night as it does make her drowsy. Has not taken it yet this evening. Denies any abnormal vaginal discharge or bleeding, denies concern for sexually transmitted infections. Related Data Home Medications ?Medication ?Instructions ?Recorded ?Confirmed albuterol sulfate 2.5 mg/0.5 mL 5 mg inhalation QID 05/17/20 11/02/24 solution for nebulization montelukast 10 mg tablet 10 mg PO DAILY 05/17/20 11/02/24 (Singulair) omeprazole 40 mg capsule,delayed 40 mg PO BID 05/24/21 11/02/24 release blood sugar diagnostic (FreeStyle #10 ea 07/02/21 11/02/24 Lite Strips) lancets 33 gauge (TRUEplus Lancets) #100 ea 07/02/21 11/02/24 albuterol sulfate 90 mcg/actuation 2 puff PO Q4-6H PRN Shortness Of 12/24/21 11/02/24 aerosol inhaler (ProAir HFA) Breath melatonin 5 mg capsule mg PO 11/17/24 oxycodone 5 mg tablet 5 mg PO BID PRN 11/17/24 Previous Rx's ?Medication ?Instructions ?Recorded loratadine 10 mg tablet (Allergy 10 mg PO DAILY #30 tabs 12/22/21 Relief (loratadine)) cholecalciferol (vitamin D3) 250 250 mcg PO DAILY sleep disorder 08/31/24 mcg (10,000 unit) tablet #90 tabs nortriptyline 10 mg capsule 10 mg PO BEDTIME 90 days #90 caps 11/17/24 melatonin 10 mg tablet 10 mg PO BEDTIME PRN sleep 11/26/24 disturbances #30 tabs cefpodoxime 200 mg tablet 200 mg PO BID 12 days #24 tabs 11/27/24 ondansetron 4 mg disintegrating 4 mg PO Q6H PRN nausea and 11/27/24 tablet vomiting #14 tabs phenazopyridine 100 mg tablet 100 mg PO TID 5 doses #5 tabs 11/27/24 (Pyridium) Allergies Allergy/AdvReac Type Severity Reaction Status Date / Time levofloxacin [From Levaquin] Allergy Intermediate INTERACTED Verified 11/29/24 17:41 W/ANTI DEPRESSANT morphine [MORPHINE] Allergy Intermediate ITCHING, Verified 11/29/24 17:41 HIVES trazodone [TRAZODONE] Allergy Mild TACHYCARDIA Verified 11/29/24 17:41 amitriptyline Allergy Unknown Unknown Verified 11/29/24 17:41 citalopram Allergy Unknown Unknown Verified 11/29/24 17:41 escitalopram Allergy Unknown Unknown Verified 11/29/24 17:41 ibuprofen Allergy Unknown Unknown Verified 11/29/24 17:41 ketorolac Allergy Unknown Unknown Verified 11/29/24 17:41 sertraline Allergy Unknown Unknown Verified 11/29/24 17:41 Sulfa (Sulfonamide Allergy Unknown Unknown Verified 11/29/24 17:41 Antibiotics) topiramate Allergy Unknown Unknown Verified 11/29/24 17:41 trimethoprim Allergy Unknown Unknown Verified 11/29/24 17:41 zolpidem Allergy Unknown Unknown Verified 11/29/24 17:41 NSAIDS (Non-Steroidal AdvReac Severe HYPEREMESIS Verified 11/29/24 17:41 Anti-Inflamma [NSAIDS (NON-STEROIDAL ANTI-INFLAMMA] adhesive tape AdvReac Blister Verified 11/29/24 17:41 From Celexa Allergy Intermediate INTERACTS Uncoded 11/17/24 09:35 W/LEVAQUIN ANTIDEPRESENT Allergy Unknown Unknown Uncoded 11/17/24 09:35 Sulfamethoxazole Allergy Unknown Unknown Uncoded 11/17/24 09:35 toradol Allergy Unknown Unknown Uncoded 11/17/24 09:35 From Ambien AdvReac Severe TACHYCARDIA Uncoded 11/17/24 09:35 From Ultram AdvReac Severe TACHYCARDIA Uncoded 11/17/24 09:35 From ZOLOFT AdvReac Severe TACHYCARDIA Uncoded 11/17/24 09:35 From TORADOL AdvReac Mild STOMACH Uncoded 11/17/24 09:35 UPSET Review of Systems 2 Review of Systems: Yes all other systems are reviewed and are negative FORMERLY [facility], [facility] Past Medical History Attestation statement: The following information was validated with the patient. Source: old records reviewed Medical History Sleep apnea Chronic back pain GERD (gastroesophageal reflux disease) Cervical radiculopathy Anemia Hx: UTI (urinary tract infection) Fatty liver Hepatic steatosis Migraines Asthma Recurrent UTI Adhesive capsulitis of right shoulder Fibromyalgia Unspecified internal derangement of unspecified knee Surgical History History of esophagogastroduodenoscopy (EGD) H/O colonoscopy History of left oophorectomy Previous section History of partial hysterectomy Family History Family History Father No problems noted. Mother No problems noted. Maternal Aunt Breast cancer Paternal Uncle Cancer Social History Social History Household Members: None Housing: Apartment Are you a primary career portals teacher to a significant other at home: No Do you presently have visiting nurse or other home services: No Alcohol intake: never Patient Tobacco Use Status: Former Tobacco user Tobacco use type: Cigarette Smoked in Last 30 Days: No Second Hand Smoke Exposure: No Use of substances other than those prescribed or required for medical reasons: No Substance Use Type: Marijuana Advance Directives: No Advance Directives Information Provided: No service: No Current occupational status: unemployed Current occupation: [employer] - Right Handed Physical Exam ED Vital Signs: Vital Signs - 24 hr 11/29/24 17:39 11/29/24 20:00 11/29/24 22:06 Temperature 98.2 F 98.5 F 98.5 F Pulse Rate 100 77 77 Respiratory Rate 18 16 16 Blood Pressure 139/78 116/69 116/69 Pulse Oximetry 100 100 100 Oxygen Delivery Method Room Air Room Air Room Air BMI result Body Mass Index 31.4 Appearance: Alert.?Oriented to person, place and time. No acute distress.?Normal affect. CVS: Heart sounds normal. Normal heart rate and rhythm.? Pulses normal.?? Respiratory: No respiratory distress.? Lung sounds clear to auscultation bilaterally?? Abdomen: Soft and non-tender. Normoactive bowel sounds. No pulsatile mass.??Positive right CVAT. Skin: Skin warm and dry.? Normal skin color.? Extremities: No lower extremity edema.? Neuro: Moves all extremities spontaneously. Sensation intact bilaterally. Ambulates with normal steady gait. Course Course Course Narrative: RME: 49-year-old female recently being treated for pyelonephritis presents to ED for flank pain with dysuria and nausea. Patient denies any fever or chills. Positive for CVA tenderness on palpation. Labs CT scan ordered Medical Decision Making Medical Decision Making MDM Narrative: Patient is a 49-year-old female with past medical history of asthma, fibromyalgia, hepatic steatosis, migraines, recurrent UTI presents emergency department for evaluation symptoms with right flank pain setting of the treated for pruritus. She was seen in this emergency department 11/27/2024, had evaluation of the CT scan of the abdomen and pelvis which showed no inflammation of kidney stone or inflammatory changes at that time. I reviewed workup obtained from rapid medical examination prior to my assumption of care today; CBC reveals leukocytosis of 14,100 with left shift, no anemia thrombocytopenia. No electrolyte derangement. No JACK. LFTs unremarkable. HCG is negative. Urinalysis positive for nitrites, otherwise unremarkable though she is currently on antibiotics for urinary tract infection. CT of the abdomen and pelvis without IV contrast was obtained prior to my assumption of care which reveals no evidence of hydronephrosis, nephrolithiasis or ureteral stones, no mentioned in perinephric stranding. Incidental findings to include several small granulomas or seeming lower lungs, severe facet disease in the lower lumbar spine. Given persistent right CVAT this is concerning for persistent nephritis, she has only been on the antibiotics over the past 2 days she was prescribed cefpodoxime, urine culture growing Citrobacter koseri >100,000 cfu with joyce sensitivity including cephalosporins. Negative hCG not consistent with ectopic , she denies concern for sexually transmitted infections, denies history of ovarian cyst lower suspicion for tubo-ovarian abscess/ PID, ovarian torsion, ruptured ovarian cyst. Denies continued use of the antibiotic, use of conservative treatment including warm compress, acetaminophen, and Percocet for pain, outpatient follow-up with primary care provider and strict return precautions. All questions answered. Stable for discharge Differential Diagnosis Differential Diagnoses: The differential diagnosis associated with the presentation includes (See narrative above) Admission/Observation Consideration of admission/observation: Escalation of care including admission/observation considered Lab Data MDM Lab Attestation statement: I reviewed the patient's lab results. (See narrative above) 11/29/24 17:57 11/29/24 17:57 Labs: Lab Results 11/29/24 Range/Units 17:57 WBC 14.1 H (4.8-10.8) X10*3/uL RBC 4.49 (4.20-5.50) X10*6/uL Hgb 12.7 (12.0-16.0) g/dl Hct 37.8 (37.0-47.0) % MCV 84.2 (80.0-98.0) fL MCH 28.3 (27.0-33.0) pg MCHC 33.6 (31.0-35.0) g/dl RDW 14.9 (11.0-16.0) % Plt Count 351 (160-400) X10*3/uL MPV 9.3 L (9.4-12.3) fL Immature Gran % (Auto) 0.4 (0.0-0.4) % Neut % (Auto) 66.1 (45-73) % Lymph % (Auto) 25.7 (20-40) % [place] % (Auto) 5.0 (2-11) % Eos % (Auto) 2.1 (0-4) % Baso % (Auto) 0.7 (0-2) % Lymph # (Auto) 3.6 (1.2-4.9) X10*3/uL [place] # (Auto) 0.7 (0.1-1.2) X10*3/uL Eos # (Auto) 0.3 (0.0-0.4) X10*3/uL Baso # (Auto) 0.1 (0.0-0.2) X10*3/uL Abs Immat Gran (auto) 0.06 H (0.00-0.03) X10*3/uL Absolute Neuts (auto) 9.3 H (2.0-8.3) x10*3/uL Absolute Nucleated RBC 0.000 (0.0-0.012) X10*3/uL Nucleated RBC % (auto) 0.0 (0.0-0.2) /100WBC Sodium 140 (135-145) mmol/L Potassium 3.7 (3.3-5.1) mmol/L Chloride 105 (96-108) mmol/L Carbon Dioxide 28 (22-29) mmol/L Anion Gap 11 L (12-20) BUN 9 (9-16) mg/dL Creatinine 0.74 (0.5-1.4) mg/dL Estim Creat Clear Calc 93.2 Estimated GFR > 60 Random Glucose 92 (60-115) mg/dL Calcium 9.4 (8.4-10.2) mg/dL Total Bilirubin 0.2 (0.0-1.0) mg/dL AST 22 (5-31) U/L ALT 27 (0-31) U/L Alkaline Phosphatase 78 (39-117) U/L Total Protein 7.6 (6.5-8.0) g/dL Albumin 4.3 (3.5-5.0) g/dL Beta HCG, Quant < 2 mIU/mL Urine Color DK YELLOW Urine Appearance Clear Urine pH 5.0 (5.0-9.0) Ur Specific [place] <= 1.005 (1.005-1.025) Urine Protein Trace (Neg-Trace) mg/dL Urine Glucose (UA) 100 H (Negative) mg/dL Urine Ketones Negative (Negative) mg/dL Urine Blood Trace (Negative) Urine Nitrite Positive H (Negative) Ur Leukocyte Esterase Negative (Negative) Urine RBC 0-2 (0-2) /HPF Urine WBC 0-5 (0-5) /HPF Ur Squamous Epith Cells 0-2 (0-2) /HPF Urine Bacteria None Seen (None Seen) Hyaline Casts 0-2 (0-2) /LPF Urine Test NEGATIVE (NEGATIVE) Radiology Impression Discussion of test interpretation with radiology: I have reviewed the radiologist's reading. Radiologist Impression: CT of the abdomen and pelvis without intravenous contrast. Comparison 11/27/2024. Findings: There is fatty infiltration of the liver. The gallbladder is unremarkable. No renal or definite ureteral stones are seen. There is no hydronephrosis. The spleen and pancreas are unremarkable. No abdominal aortic aneurysm. No diverticulitis is identified. Normal appendix. There is no bowel obstruction. The bladder is nondilated. No definite ovarian abnormality is seen. There are several small granulomas in the lower lungs. There is severe facet disease in the lower lumbar spine. Impression: No renal or definite ureteral stones. Other findings as above. External Record Review External record reviewed: Outpatient record Prescription Management I considered prescription management with: Antibiotic (See narrative above) Chronic Conditions Patient?s care impacted by: Other (See PMFSH section) Discharge Plan Discharge Clinical Impression: Pyelonephritis Patient Disposition: Home, Self-Care Instructions: Kidney Infection (ED) Additional Instructions: As discussed, CT scan today is unchanged, blood work is reassuring. Continue taking your medication as prescribed, cefpodoxime for management of the infection. Be sure that you are staying well hydrated drinking plenty of water. You may apply a warm compress to the area of pain as well for 10-15 minutes 4-6 times daily. You may consider use of your Percocet of the evening to help with pain as well since you were unable to take NSAIDs. Their primary care doctor. Return to emergency department any new or worsening symptoms or concerns. Prescriptions: No Action cholecalciferol (vitamin D3) 250 mcg (10,000 unit) tablet 250 mcg PO DAILY MDD 250mcg Qty: 90 3RF melatonin 10 mg tablet 10 mg PO BEDTIME PRN (Reason: sleep disturbances) Qty: 30 2RF loratadine [Allergy Relief (loratadine)] 10 mg tablet 10 mg PO DAILY Qty: 30 0RF albuterol sulfate [ProAir HFA] 90 mcg/actuation HFA aerosol inhaler 2 puff PO Q4-6H PRN (Reason: Shortness Of Breath) cefpodoxime 200 mg tablet 200 mg PO BID 12 Days Qty: 24 0RF Rx Instructions: must administer with a meal/food ondansetron 4 mg tablet,disintegrating 4 mg PO Q6H PRN (Reason: nausea and vomiting) Qty: 14 0RF phenazopyridine [Pyridium] 100 mg tablet 100 mg PO TID Qty: 5 0RF montelukast [Singulair] 10 mg tablet 10 mg PO DAILY albuterol sulfate 2.5 mg/0.5 mL solution for nebulization 5 mg inhalation QID (DME) lancets [TRUEplus Lancets] 33 gauge misc See Rx Instructions Not Applicable DAILY Qty: 100 Rx Instructions: As directed (DME) FreeStyle Lite Strips Strip See Rx Instructions Not Applicable DAILY Qty: 10 Rx Instructions: As directed omeprazole 40 mg capsule,delayed release(DR/EC) 40 mg PO BID oxycodone 5 mg tablet 5 mg PO BID PRN melatonin 5 mg capsule PO nortriptyline 10 mg capsule 10 mg PO BEDTIME 90 Days Qty: 90 0RF Referrals: Adal Alves MD [Primary Care Provider] - Interventions: ED Discharge Assessment Last Done: 11/29/24 22:06 Discharge Date/Time: 11/29/24 22:07 Print Language: Bhutanese
[2024-11-29 18:02] LABS: MANUAL DIFF FLAG NO
[2024-11-29 18:07] LABS: Appearance Urine Clear; Basophils Absolute Auto 0.1 X10*3/uL (0.0-0.2); Basophils Percent Auto 0.7 % (0-2); Color Urine DK YELLOW; Eosinophils Absolute Auto 0.3 X10*3/uL (0.0-0.4); Eosinophils Percent Auto 2.1 % (0-4); Glucose Urine UA 100 mg/dL (Negative); Hematocrit 37.8 % (37.0-47.0); Hemoglobin 12.7 g/dl (12.0-16.0); Imm Gran Abs Auto 0.06 X10*3/uL (0.00-0.03); Imm Gran Pct Auto 0.4 % (0.0-0.4); Leukocyte Esterase Urine Negative (Negative); Lymphocytes Absolute Auto 3.6 X10*3/uL (1.2-4.9); Lymphocytes Percent Auto 25.7 % (20-40); Mean Corpuscular HGB Conc 33.6 g/dl (31.0-35.0); Mean Corpuscular Hemoglobin 28.3 pg (27.0-33.0); Mean Corpuscular Volume 84.2 fL (80.0-98.0); Mean Platelet Volume 9.3 fL (9.4-12.3); Monocytes Absolute Auto 0.7 X10*3/uL (0.1-1.2); Neutrophils Absolute Auto 9.3 x10*3/uL (2.0-8.3); Neutrophils Percent Auto 66.1 % (45-73); Nitrite Urine Positive (Negative); Platelet Count 351 X10*3/uL (160-400); Red Blood Count 4.49 X10*6/uL (4.20-5.50); Red Cell Distribution Width 14.9 % (11.0-16.0); Specific Gravity - Urine <= 1.005 (1.005-1.025); UMIC TRIGGER UACC YES; Urine Blood Trace (Negative); Urine Ketones Negative (Negative); Urine Protein Trace mg/dL (Neg-Trace); White Blood Count 14.1 X10*3/uL (4.8-10.8)
[2024-11-29 18:08] LABS: UPreg QC Valid YES; Urine Pregnancy NEGATIVE (NEGATIVE)
[2024-11-29 18:16] LABS: Bacteria Urine None Seen (None Seen); Hyaline Casts Urine 0-2 /LPF (0-2); RBC Urine 0-2 /HPF (0-2); Squamous Epithelial Cell Urine 0-2 /HPF (0-2); UACC Culture Trigger YES; WBC Urine 0-5 /HPF (0-5)
[2024-11-29 18:36] LABS: Alanine Aminotransferase 27 U/L (0-31); Albumin Level 4.3 g/dL (3.5-5.0); Alkaline Phosphatase 78 U/L (39-117); Anion Gap 11 (12-20); Aspartate Amino Transferase 22 U/L (5-31); Bilirubin Total 0.2 mg/dL (0.0-1.0); Blood Urea Nitrogen 9 mg/dL (9-16); Calcium 9.4 mg/dL (8.4-10.2); Carbon Dioxide 28 mmol/L (22-29); Chloride 105 mmol/L (96-108); Creatinine Clr Calc Pharmacy 93.2; Estimated Glomerular Filt Rate > 60; Glucose Random 92 mg/dL (60-115); HCG Quantitative < 2 mIU/mL; Potassium 3.7 mmol/L (3.3-5.1); Sodium 140 mmol/L (135-145); Total Protein 7.6 g/dL (6.5-8.0)
[2024-11-29 20:00] VITALS: BP 116/69; PULSE 77; RESP 16; TEMP 36.9; O2SAT 100
[2024-11-29 22:06] VITALS: BP 116/69; PULSE 77; RESP 16; TEMP 36.9; O2SAT 100
== END 2024-11-29 22:07 | disposition home or self-care (01) ==
PROVIDERS: Physician Assistant; Emergency Provider Emergency Medicine Emergency Medical Services; PCP Internal Medicine
DX: N12 Tubulo-interstitial nephritis, not specified as acute or chronic (principal); M54.50 Low back pain, unspecified; N23 Unspecified renal colic; Z79.899 Other long term (current) drug therapy
CPT/HCPCS: 36415; 74176; 80053; 81001; 81025; 84702; 85025; 87086; 99284

== ENCOUNTER → 2024-11-29 17:47 | Outpatient (BNV) | payer MEDICAID, SELFPAY | PROVIDERS: PCP Internal Medicine; Visit Provider Radiology Diagnostic Radiology | DX: K76.0 Fatty (change of) liver, not elsewhere classified (principal) | CPT/HCPCS: 74176 ==

== ENCOUNTER 2024-12-03 07:14 | Emergency (ER) | payer MEDICAID, SELFPAY ==
--- NOTE | ~2024-12-03 | US_ITS ---
EXAMINATION: Ultrasound renal, bilaterally. CLINICAL INFORMATION: CVA tenderness. Probable hydronephrosis. COMPARISON: Correlated to CT dated November 29, 2024. TECHNIQUE: Real-time ultrasound the kidneys using grayscale technique. FINDINGS: Right kidney: 12 x 5 x 6 cm. Volume: 175 cc. Normal echotexture. Normal renal cortical thickness. No hydronephrosis. No solid or cystic lesion. Left kidney: 11 x 5 x 4 cm. Volume: 117 cc. Normal echotexture. Normal renal cortical thickness. No hydronephrosis. No solid or cystic lesion. US/US renal BI IMPRESSION: No hydronephrosis. Negative exam. Electronically signed by: Vicente Santos MD 12/03/2024 08:36 AM EDT
[2024-12-03 07:32] VITALS: BP 115/80; PULSE 99; RESP 18; TEMP 37; O2SAT 99; BMI 31.3
[2024-12-03 07:52] VITALS: BP 116/39; PULSE 83; RESP 16; TEMP 36.3; O2SAT 97
--- NOTE | 2024-12-03 07:54 | ED.FEMALEGU ---
HPI - Female Genitourinary General Chief complaint: Urogenital-Female Stated complaint: UTI, meds not working Time Seen by Provider: 12/03/24 07:53 Source: patient Mode of arrival: ambulatory Limitations: no limitations History of Present Illness ED Provider: Liliana Crum PA-C HPI Narrative: Patient seeks medical attention in the emergency department today for continued symptoms x 8 days. PMH signficant for asthma, fibromyalgia, hepatic steatosis, migraines, recurrent UTI, She was seen here both on November 27 and November 29, 4 and 6 days ago respectively. Her urine culture on November 27 grew Citrobacter koseri she was placed on cefpodoxime (12 days) and Pyridium diagnosed with pyelonephritis. When she came back to the ED on the she had a CT scan done along with labs CT was unremarkable showing no evidence of hydronephrosis obvious masses or stones. And although she did have a white count with left shift as she has only been on the medication for 2 days this was continued she has not have urosepsis. Patient comes back today because since yesterday she continues to have what she describes as frothy urine and continued discomfort with urination. She continues to deny any concern for any STIs or vaginal symptoms. She reports that she has baseline body aches all the time but her kidney still hurts her on the right side. She denies any respiratory symptoms and no fevers but does endorse chills. She did feel nauseous last night once and vomited but otherwise does not have any GI upset and no diarrhea. She continues to hydrate and tolerate p.o. fluids. Denying any frequency or urgency. Repeat urine on the showed mixed srinivasa. Patient reports history of 27 years of urinary symptoms but denies diagnosis of interstitial cystitis. Last time she saw a urologist was 27 years ago. Patient is established with a PCP she reached out to them yesterday before coming back here but they encouraged her to go back to the ED before seeing her. No genital trauma. MD elicited complaint: flank pain Related Data Home Medications ?Medication ?Instructions ?Recorded ?Confirmed albuterol sulfate 2.5 mg/0.5 mL 5 mg inhalation QID 05/17/20 11/02/24 solution for nebulization montelukast 10 mg tablet 10 mg PO DAILY 05/17/20 11/02/24 (Singulair) omeprazole 40 mg capsule,delayed 40 mg PO BID 05/24/21 11/02/24 release blood sugar diagnostic (FreeStyle #10 ea 07/02/21 11/02/24 Lite Strips) lancets 33 gauge (TRUEplus Lancets) #100 ea 07/02/21 11/02/24 albuterol sulfate 90 mcg/actuation 2 puff PO Q4-6H PRN Shortness Of 12/24/21 11/02/24 aerosol inhaler (ProAir HFA) Breath melatonin 5 mg capsule mg PO 11/17/24 oxycodone 5 mg tablet 5 mg PO BID PRN 11/17/24 Previous Rx's ?Medication ?Instructions ?Recorded loratadine 10 mg tablet (Allergy 10 mg PO DAILY #30 tabs 12/22/21 Relief (loratadine)) cholecalciferol (vitamin D3) 250 250 mcg PO DAILY sleep disorder 08/31/24 mcg (10,000 unit) tablet #90 tabs nortriptyline 10 mg capsule 10 mg PO BEDTIME 90 days #90 caps 11/17/24 melatonin 10 mg tablet 10 mg PO BEDTIME PRN sleep 11/26/24 disturbances #30 tabs cefpodoxime 200 mg tablet 200 mg PO BID 12 days #24 tabs 11/27/24 ondansetron 4 mg disintegrating 4 mg PO Q6H PRN nausea and 11/27/24 tablet vomiting #14 tabs phenazopyridine 100 mg tablet 100 mg PO TID 5 doses #5 tabs 11/27/24 (Pyridium) Allergies Allergy/AdvReac Type Severity Reaction Status Date / Time levofloxacin [From Levaquin] Allergy Intermediate INTERACTED Verified 12/03/24 07:33 W/ANTI DEPRESSANT morphine [MORPHINE] Allergy Intermediate ITCHING, Verified 12/03/24 07:33 HIVES trazodone [TRAZODONE] Allergy Mild TACHYCARDIA Verified 12/03/24 07:33 amitriptyline Allergy Unknown Unknown Verified 12/03/24 07:33 citalopram Allergy Unknown Unknown Verified 12/03/24 07:33 escitalopram Allergy Unknown Unknown Verified 12/03/24 07:33 ibuprofen Allergy Unknown Unknown Verified 12/03/24 07:33 ketorolac Allergy Unknown Unknown Verified 12/03/24 07:33 sertraline Allergy Unknown Unknown Verified 12/03/24 07:33 Sulfa (Sulfonamide Allergy Unknown Unknown Verified 12/03/24 07:33 Antibiotics) topiramate Allergy Unknown Unknown Verified 12/03/24 07:33 trimethoprim Allergy Unknown Unknown Verified 12/03/24 07:33 zolpidem Allergy Unknown Unknown Verified 12/03/24 07:33 NSAIDS (Non-Steroidal AdvReac Severe HYPEREMESIS Verified 12/03/24 07:33 Anti-Inflamma [NSAIDS (NON-STEROIDAL ANTI-INFLAMMA] adhesive tape AdvReac Blister Verified 12/03/24 07:33 From Celexa Allergy Intermediate INTERACTS Uncoded 11/17/24 09:35 W/LEVAQUIN ANTIDEPRESENT Allergy Unknown Unknown Uncoded 11/17/24 09:35 Sulfamethoxazole Allergy Unknown Unknown Uncoded 11/17/24 09:35 toradol Allergy Unknown Unknown Uncoded 11/17/24 09:35 From Ambien AdvReac Severe TACHYCARDIA Uncoded 11/17/24 09:35 From Ultram AdvReac Severe TACHYCARDIA Uncoded 11/17/24 09:35 From ZOLOFT AdvReac Severe TACHYCARDIA Uncoded 11/17/24 09:35 From TORADOL AdvReac Mild STOMACH Uncoded 11/17/24 09:35 UPSET Review of Systems Review of Systems: Yes all other systems are reviewed and are negative PMFSH Past Medical History Attestation statement: The following information was validated with the patient. Source: old records reviewed and nursing notes reviewed Medical History Sleep apnea Chronic back pain GERD (gastroesophageal reflux disease) Cervical radiculopathy Anemia Hx: UTI (urinary tract infection) Fatty liver Hepatic steatosis Migraines Asthma Recurrent UTI Adhesive capsulitis of right shoulder Fibromyalgia Unspecified internal derangement of unspecified knee Surgical History History of esophagogastroduodenoscopy (EGD) H/O colonoscopy History of left oophorectomy Previous section History of partial hysterectomy Family History Family History Father No problems noted. Mother No problems noted. 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 Physical Exam Vital Signs: Vital Signs: Last Vital Signs Temp 98.0 F 12/03/24 09:21 Pulse 76 12/03/24 09:21 Resp 15 12/03/24 09:21 BP 120/60 12/03/24 09:46 Pulse Ox 97 12/03/24 09:21 O2 Del Method Room Air 12/03/24 09:21 BMI result Body Mass Index 31.3 Const: General: cooperative, healthy appearing, comfortable and no acute distress Nutritional Appearance: obese Orientation/consciousness: patient oriented x3 HEENT: Head: Yes normal to inspection Mouth: lip normal and moist mucous membranes abnormal (dry) Throat: Yes posterior oropharynx normal Eyes: General: appearance normal, both eyes and all related structures Conjunctivae: conjunctivae normal Sclerae: sclerae normal Neck: Neck: Yes normal visual inspection, Yes full ROM and Yes no lymphadenopathy Chest: Chest palpation & inspection: normal inspection of the chest Resp: Effort & Inspection: normal respiratory effort and able to speak in complete sentences Auscultation: clear to auscultation bilaterally Cardio: Jugular venous distension: no JVD Rate: regular rate Rhythm: regular rhythm GI: Inspection: Yes normal to inspection Rectal Exam - Female: deferred : General: Yes CVA tenderness on the right Back/Spine/Pelvis: Back: CVA tenderness Skin: General skin exam: no rashes or lesions noted Neuro: General: patient oriented x3 Medications Administered Discontinued Medications Generic Name Dose Route Start Last Admin Trade Name Freq PRN Reason Stop Dose Admin Ondansetron HCl 4 mg 12/03/24 08:18 12/03/24 08:24 Ondansetron Odt 4 Mg Tab.Rapdis TRANSLINGU 12/03/24 08:19 4 mg ONCE ONE Administration Medical Decision Making Medical Decision Making MDM Narrative: Mostly pyelonephritis. CT scan 2 days ago normal. Had right sided kidney pain since first presentation 6 days ago. We will ultrasound her kidney today to rule out potential hydronephrosis and repeat blood work and urine. Patient does not appear septic or ill. She is well-appearing and has reassuring vitals. She is able tolerate p.o. fluids Vaginitis/STDs: considered but patient denies sxs and concern. Pyelonephritis: no fevers- on cefpodoxime urine culture showing joyce sensitivity Interstitial cystitis: possible will advise Urogynecology follow up prn. Urine dipstick positive for leukocytes white blood cell count trending downward. Urine culture sent, will f/u with susceptibility. Patient advised on fluids and return prn for failure to improve. Given her significant history of recurrent UTIs and recommend that she follow up with the urologist outpatient we will continue the course of treatment today. Differential Diagnosis Differential Diagnoses: The differential diagnosis associated with the presentation includes see [facility] Admission/Observation Consideration of admission/observation: Escalation of care including admission/observation considered Patient would have been admitted to the hospital had [his/her/their] work up had any findings where hospital admission was appropriate and [his/her/their] clinical presentation warranted hospital admission. Lab Data [facility] Lab Attestation statement: I reviewed the patient's lab results. 12/03/24 08:35 12/03/24 08:35 Labs: Lab Results 12/03/24 12/03/24 Range/Units 08:09 08:35 WBC 11.1 H (4.8-10.8) X10*3/uL RBC 4.54 (4.20-5.50) X10*6/uL Hgb 12.8 (12.0-16.0) g/dl Hct 37.9 (37.0-47.0) % MCV 83.5 (80.0-98.0) fL MCH 28.2 (27.0-33.0) pg MCHC 33.8 (31.0-35.0) g/dl RDW 14.6 (11.0-16.0) % Plt Count 322 (160-400) X10*3/uL MPV 9.2 L (9.4-12.3) fL Immature Gran % (Auto) 0.5 H (0.0-0.4) % Neut % (Auto) 67.4 (45-73) % Lymph % (Auto) 22.7 (20-40) % [place] % (Auto) 6.5 (2-11) % Eos % (Auto) 2.2 (0-4) % Baso % (Auto) 0.7 (0-2) % Lymph # (Auto) 2.5 (1.2-4.9) X10*3/uL [place] # (Auto) 0.7 (0.1-1.2) X10*3/uL Eos # (Auto) 0.2 (0.0-0.4) X10*3/uL Baso # (Auto) 0.1 (0.0-0.2) X10*3/uL Abs Immat Gran (auto) 0.05 H (0.00-0.03) X10*3/uL Absolute Neuts (auto) 7.5 (2.0-8.3) x10*3/uL Absolute Nucleated RBC 0.000 (0.0-0.012) X10*3/uL Nucleated RBC % (auto) 0.0 (0.0-0.2) /100WBC Sodium 138 (135-145) mmol/L Potassium 3.9 (3.3-5.1) mmol/L Chloride 103 (96-108) mmol/L Carbon Dioxide 28 (22-29) mmol/L Anion Gap 11 L (12-20) BUN 7 L (9-16) mg/dL Creatinine 0.72 (0.5-1.4) mg/dL Estim Creat Clear Calc 95.8 Estimated GFR > 60 Random Glucose 108 (60-115) mg/dL Calcium 9.0 (8.4-10.2) mg/dL Total Bilirubin 0.3 (0.0-1.0) mg/dL AST 32 H (5-31) U/L ALT 41 H (0-31) U/L Alkaline Phosphatase 76 (39-117) U/L Total Protein 6.9 (6.5-8.0) g/dL Albumin 3.8 (3.5-5.0) g/dL Urine Color Yellow Urine Appearance Clear Urine pH 5.5 (5.0-9.0) Ur Specific [place] 1.020 (1.005-1.025) Urine Protein Negative (Neg-Trace) mg/dL Urine Glucose (UA) Negative (Negative) mg/dL Urine Ketones Trace (Negative) mg/dL Urine Blood Negative (Negative) Urine Nitrite Negative (Negative) Ur Leukocyte Esterase Small (1+) H (Negative) Urine RBC 0-2 (0-2) /HPF Urine WBC 0-5 (0-5) /HPF Ur Squamous Epith Cells 3-5 (0-2) /HPF Urine Bacteria None Seen (None Seen) Hyaline Casts 0-2 (0-2) /LPF Independent Interpretation I performed an independent interpretation of an: Ultrasound Interpretation: No obvious hydronephrosis Radiology Impression Discussion of test interpretation with radiology: I have reviewed the radiologist's reading. External Record Review External record reviewed: Outpatient record Tests considered The following testing was considered but not selected: CT scan of the abdomen and pelvis were then repeated today however given she just had this 2 days ago and her white count is improving we will defer ultrasound ordered instead reassuring Prescription Management I considered prescription management with: Pain Medication and Antibiotic Chronic Conditions Patient?s care impacted by: Other Recurrent UTIs Discharge Plan Discharge Clinical Impression: UTI (urinary tract infection), Fibromyalgia, Chronic pain syndrome Patient Disposition: Home, Self-Care Instructions: Urinary Tract Infection in Women (DC), Interstitial Cystitis (ED) Additional Instructions: You were seen in the emergency department today for repeat of labs and imaging due to your recurrent UTI symptoms. Your white blood cell count is improving and your imaging today does not show any evidence of a kidney infection or hydronephrosis. Continue with course of treatment and follow up outpatient with UTI. Increase your fluids. Please return for increased abdominal discomfort fevers or worsening symptoms or intractable vomiting. [facility] will be contacting you within 2 business?days after being discharged from the Emergency?Department.? During this?phone call, they will inform you when your follow up appointment will be scheduled. If you have not received a call from [facility] after 2 business?days, please call the?office at [phone]. Prescriptions: No Action cholecalciferol (vitamin D3) 250 mcg (10,000 unit) tablet 250 mcg PO DAILY MDD 250mcg Qty: 90 3RF melatonin 10 mg tablet 10 mg PO BEDTIME PRN (Reason: sleep disturbances) Qty: 30 2RF loratadine [Allergy Relief (loratadine)] 10 mg tablet 10 mg PO DAILY Qty: 30 0RF albuterol sulfate [ProAir HFA] 90 mcg/actuation HFA aerosol inhaler 2 puff PO Q4-6H PRN (Reason: Shortness Of Breath) cefpodoxime 200 mg tablet 200 mg PO BID 12 Days Qty: 24 0RF Rx Instructions: must administer with a meal/food ondansetron 4 mg tablet,disintegrating 4 mg PO Q6H PRN (Reason: nausea and vomiting) Qty: 14 0RF phenazopyridine [Pyridium] 100 mg tablet 100 mg PO TID Qty: 5 0RF montelukast [Singulair] 10 mg tablet 10 mg PO DAILY albuterol sulfate 2.5 mg/0.5 mL solution for nebulization 5 mg inhalation QID (DME) lancets [TRUEplus Lancets] 33 gauge misc See Rx Instructions Not Applicable DAILY Qty: 100 Rx Instructions: As directed (DME) FreeStyle Lite Strips Strip See Rx Instructions Not Applicable DAILY Qty: 10 Rx Instructions: As directed omeprazole 40 mg capsule,delayed release(DR/EC) 40 mg PO BID oxycodone 5 mg tablet 5 mg PO BID PRN melatonin 5 mg capsule PO nortriptyline 10 mg capsule 10 mg PO BEDTIME 90 Days Qty: 90 0RF Referrals: [facility] Services [Provider Group] - 2 days (recurrent UTIs, three visits to ED in the last 8 days) Stand Alone Forms: Work/School Release Print Language: [place] Citizen
--- OUTSIDE RECORDS SUMMARY | 2024-12-03 07:56 | XMS_ITS | Encounter Summary ---
Author Organization [employer] Address [address] [place] [address] Care Team Providers Care Shell Molder Name Role Phone Adal Terrell MD Primary Care Provide r Encounter Details Date Type Department Care Team ([facility] st Contact Info) Description 10/13/2024 Telephone [facility] [address] [place], [place] [phone] Adal Terrell MD [address] [place] [address] Social History Tobacco Use Types Packs/Day Years [...] Care Team (Late st Contact Info) Description 12/14/2024 1:15 PM EDT Office Visit [facility] [address] [place] [address] Adal Terrell MD [address] [place] [phone] 02/24/2025 1:30 PM EDT Clinical Support [facility] PEDS [address] [place] [address] Marci Kennedy, RN [address] [place] [address] documented as of this encounter Visit Diagnoses Not on filedocumented in this encounter Additional Health Concerns Assessment Noted Time PHQ-9 Depression Total Score: 5 01/27/20 24 10:54 AM EDT documented as of this encounter Care Teams Shell Molder Relationship Specialty Start Date End Date Adal Terrell MD [address] [place] [phone] PCP - General Internal Medicine 03/08/14 documented as of this encounter
--- OUTSIDE RECORDS SUMMARY | 2024-12-03 07:56 | XMS_ITS | Encounter Summary ---
Author Organization [employer] Address [address] [place] [address] Care Team Providers Care In Flight Technician Name Role Phone Adal Terrell MD Primary Care Provide r Reason for Visit * Reason Onset Date Comments Appointment Request 03/19/2023 Encounter Details Date Type Department Care Team ([facility] st Contact Info) Description 03/19/2023 Telephone [facility] MED[facility]INE [address] [place] [phone] Adal Terrell MD [address] [place] [address] Appointment Request Social History Tobacco Use Types [...] encounter Miscellaneous Notes * Telephone Encounter - [place] Glenn Reyes - 03/19/2023 9:53 AM EDT 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 Pt states due to an emergency she has to fly out to [place] and won't be back in two weeks. Please contact pt at [phone] documented in this encounter Plan of Treatment Upcoming Encounters Date Type Department Care Team (Late st Contact Info) Description 12/14/2024 1:15 PM EDT Office Visit [facility] [address] [place] [address] Adal Terrell MD [address] [place] [address] 02/24/2025 1:30 PM EDT Clinical Support [facility] [address] [place] [address] Marci Kennedy, RN [address] [place] [address] documented as of this encounter Visit Diagnoses Not on filedocumented in this encounter Additional Health Concerns Assessment Noted Time PHQ-9 Depression Total Score: 0 09/10/19 11:00 AM EST documented as of this encounter Care Teams In Flight Technician Relationship Specialty Start Date End Date Adal Terrell MD [address] [place] [address] PCP - General Internal Medicine 03/08/14 documented as of this encounter
--- OUTSIDE RECORDS SUMMARY | 2024-12-03 07:56 | XMS_ITS | Encounter Summary ---
Author Organization [employer] Address [address] [place] [address] Care Team Providers Care Sample Tester Name Role Phone Adal Terrell MD Primary Care Provide r Reason for Visit * Reason Onset Date Comments Call Back Request 11/26/2024 Encounter Details Date Type Department Care Team ([facility] Contact Info) Description 11/26/2024 Telephone [facility] [address] [place] [address] Adal Terrell MD [address] [place] [address] Call Back Request Social History Tobacco Use Types Packs/Day Years Used Date Smoking Tobacco: Never Passive Smoke Exposure: Never Smokeless Tobacco: Never Alcohol Use Standard Drinks/Week Comments Never 0 (1 standard drink = 0.6 oz pur e alcohol) Depression Answer Date Recorded Patient Health Questionnaire-9 Score 0 11/30/2024 Patient Health Questionnaire-9 Score 0 11/30/2024 Last PHQ-9: Questionnaire Data Not on file 0 11/30/2024 Housing Stability Answer Date Recorded What is [...] Date Recorded Patient Health Questionnaire-2 Score 0 11/30/2024 Internet Access Answer Date Recorded Internet Access [...] Telephone Encounter - Gabriela Morrison RN - 11/30/2024 9:27 AM EDT TC placed to pt to follow up on the order that PCP placed for the pt to have a repeat urinalysis torule out a UTI. The pt confirmed that she did present to the [facility] on 11/27/2024 for a diagnosed UTI. Pt was put on a course of Macrobid and Pyridium and advised to stay well hydrated. Pt proceeded to goto [facility] on 11/29/2024 for inreased right lower back pain. Per [employer] As discussed, CT scan today is unchanged, blood work is reassuring. Continue taking your medication as prescribed, cefpodoxime for management of the infection. Be sure that you are staying well hydrated drinking plenty of water. You may apply a warm compress to the area of pain as well for 10-15 minutes 4-6 times daily. You may consider use of your Percocet of the evening to help with pain as well since you were unable to take NSAIDs. . Pt is aware of upcoming appt with PCP on 12/14/2024 and will discuss further management of chronic acute UTIs and right lower back pain. * Telephone Encounter - Gabriela Morrison RN - 11/26/2024 2:54 PM EDT TC placed to pt in regards to the request for a repeat urine culture to be ordered by PCP. Pt did have a urinalysis with reflex to culture ordered by PCP back on 11/16/2024. The results of that order came out within normal limits. Pt does confirm new onset symptoms of odorous urine, frequency, rightlower back pain and cloudy consistency to the urine. Pt is requesting a new order for a urine culture by ordered by PCP to rule out a UTI. Pt advised that PCP will be sent the message but being a Friday may not see this until next week. Pt is aware of Friday [facility] hours if symptoms worsen. Pt agreeable to this plan * Telephone Encounter - Zhang Gomez - 11/26/2024 10:49 AM EDT Tc from pt requesting a call back from a nurse to Discuss getting a Urine Sample taken again for UTI. Contact pt at [phone] documented in this encounter Plan of Treatment Upcoming Encounters Date Type Department Care Team (Late st Contact Info) Description 12/14/2024 1:15 PM EDT Office Visit [facility] [address] [place] [address] Adal Terrell MD [address] [place] [phone] 02/24/2025 1:30 PM EDT Clinical Support [facility] [address] [place] [address] Marci Kennedy, RN [address] [place] [address] documented as of this encounter Visit Diagnoses Not on filedocumented in this encounter Additional Health Concerns Assessment Noted Time PHQ-9 Depression Total Score: 5 01/27/20 24 10:54 AM EDT documented as of this encounter Care Teams Sample Tester Relationship Specialty Start Date End Date Adal Terrell MD [address] [place] [address] PCP - General Internal Medicine 03/08/14 documented as of this encounter
--- OUTSIDE RECORDS SUMMARY | 2024-12-03 07:56 | XMS_ITS | Encounter Summary ---
Author Organization [employer] Address [address] [place] [address] Care Team Providers Care Technician Telecommunication Systems Name Role Phone Adal Terrell MD Primary Care Provide r Reason for Visit * Reason Onset Date Comments Med Refill 10/08/2024 Encounter Details Date Type Department Care Team ([facility] st Contact Info) Description 10/08/2024 Telephone [facility] [address] [place] [address] Adal Terrell MD [address] [place] [address] Med Refill Social History Tobacco Use Types [...] immediate release tablet To be sent to: [id number] [address] [place] [address] documented in this encounter Plan of Treatment Upcoming Encounters Date Type Department Care Team (Late st Contact Info) Description 12/14/2024 1:15 PM EDT Office Visit [facility] [address] [place], [place] [phone] Adal Terrell MD [address] [place] [address] 02/24/2025 1:30 PM EDT Clinical Support [facility] [address] [place] [address] Marci Kennedy, RN [address] [place] [address] documented as of this encounter Visit Diagnoses Not on filedocumented in this encounter Additional Health Concerns Assessment Noted Time PHQ-9 Depression Total Score: 5 01/27/20 24 10:54 AM EDT documented as of this encounter Care Teams Technician Telecommunication Systems Relationship Specialty Start Date End Date Adal Terrell MD [address] [place] [phone] PCP - General Internal Medicine 03/08/14 documented as of this encounter
--- OUTSIDE RECORDS SUMMARY | 2024-12-03 07:56 | XMS_ITS | Encounter Summary ---
Author Organization [employer] Address [address] [facility] [address] 7t [place] [address] Care Team Providers Care Plasma Processor Name Role Phone Adal Terrell MD Primary Care Provide r Reason for Visit * Reason Onset Date Comments Med Refill 11/08/2024 Encounter Details Date Type Department Care Team ([facility] st Contact Info) Description 11/08/2024 Telephone [facility] MEDICINE 230 [place] [address] Adal Terrell MD 230 [place] [address] Med Refill Social History Tobacco Use Types [...] immediate release tablet To be sent to: [id number] [place], [place] - [address] [facility] documented in this encounter Plan of Treatment Upcoming Encounters Date Type Department Care Team ([facility] st Contact Info) Description 12/14/2024 1:15 PM EDT Office Visit [facility] MEDICINE 230 [place] [address] Adal Terrell MD 230 [place] [address] 02/24/2025 1:30 PM EDT Clinical Support [facility] CHC MED & PEDS 505 [place] [address] Marci Kennedy, YANET 505 [place] [address] documented as of this encounter Visit Diagnoses Not on filedocumented in this encounter Additional Health Concerns Assessment Noted Time PHQ-9 Depression Total Score: 5 01/27/20 24 10:54 AM EDT documented as of this encounter Care Teams Plasma Processor Relationship Specialty Start Date End Date Adal Terrell MD [address] [place] [address] PCP - General Internal Medicine 03/08/14 documented as of this encounter
--- OUTSIDE RECORDS SUMMARY | 2024-12-03 07:56 | XMS_ITS | Encounter Summary ---
Author Organization [employer] Address [address] [facility] [address] 7t [place] [address] Care Team Providers Care Electrical Transmission Engineer Name Role Phone Adal Terrell MD Primary Care Provide r Reason for Visit * Reason Onset Date Comments Nurse Triage 03/05/2024 Encounter Details Date Type Department Care Team ([facility] st Contact Info) Description 03/05/2024 Telephone [facility] MEDICINE 230 [place] [address] Adal Terrell MD 230 [place] [address] Nurse Triage Social History Tobacco Use Types [...] Description 12/14/2024 1:15 PM EDT Office Visit [facility] MEDICINE 230 [place] [address] Adal Terrell MD 230 [place] [address] 02/24/2025 1:30 PM EDT Clinical Support [facility] CHC MED & PEDS 505 [place] [address] Marci Kennedy RN 505 [place] [address] documented as of this encounter Visit Diagnoses Not on filedocumented in this encounter Additional Health Concerns Assessment Noted Time PHQ-9 Depression Total Score: 5 01/27/20 24 10:54 AM EDT documented as of this encounter Care Teams Electrical Transmission Engineer Relationship Specialty Start Date End Date Adal Terrell MD [address] [place] [address] PCP - General Internal Medicine 03/08/14 documented as of this encounter
--- OUTSIDE RECORDS SUMMARY | 2024-12-03 07:56 | XMS_ITS | Encounter Summary ---
Author Organization [employer] Address [address] [facility] [address] 7t [place] [address] Care Team Providers Care Paint Stripper Name Role Phone Adal Terrell MD Primary Care Provide r Encounter Details Date Type Department Care Team ([facility] st Contact Info) Description 11/09/2024 Telephone [facility] MEDICINE 230 [place], [place] [phone] Adal Terrell MD 230 [place] [address] Social History Tobacco Use Types Packs/Day Years [...] Description 12/14/2024 1:15 PM EDT Office Visit [facility] MEDICINE 230 [place] [address] Adal Terrell MD [address] [place] [address] 02/24/2025 1:30 PM EDT Clinical Support [facility] CHC MED & PEDS 505 [place] [address] Marci Kennedy, RN 505 [place] [address] documented as of this encounter Visit Diagnoses Not on filedocumented in this encounter Additional Health Concerns Assessment Noted Time PHQ-9 Depression Total Score: 5 01/27/20 24 10:54 AM EDT documented as of this encounter Care Teams Paint Stripper Relationship Specialty Start Date End Date Adal Terrell MD [address] [place] [address] PCP - General Internal Medicine 03/08/14 documented as of this encounter
--- OUTSIDE RECORDS SUMMARY | 2024-12-03 07:56 | XMS_ITS | Encounter Summary ---
Author Organization [employer] Address [address] [facility] 7t [place] [address] Care Team Providers Care Horseradish Grinder Name Role Phone Adal Terrell MD Primary Care Provide r Reason for Visit * Reason Onset Date Comments Med Refill 11/05/2022 Encounter Details Date Type Department Care Team (Late Contact Info) Description 11/05/2022 Telephone [facility] MEDICINE [address] [place] [address] Adal Terrell MD [address] [place] [phone] Med Refill Social History Tobacco Use Types [...] [facility] 230 [place] [address] Adal Terrell MD 230 [place] [address] 02/24/2025 1:30 PM EDT Clinical Support [facility] CH[facility] MED & PEDS 505 [place] [address] Marci Kennedy, YANET 505 [place] [address] documented as of this encounter Visit Diagnoses Not on filedocumented in this encounter Additional Health Concerns Assessment Noted Time PHQ-9 Depression Total Score: 0 09/10/19 23 11:00 AM EST documented as of this encounter Care Teams Horseradish Grinder Relationship Specialty Start Date End Date Adal Terrell MD [address] [place] [id number] PCP - General Internal Medicine 03/08/14 documented as of this encounter
--- OUTSIDE RECORDS SUMMARY | 2024-12-03 07:56 | XMS_ITS | Encounter Summary ---
Author Organization [employer] Address [address] [facility] [address] 7t [place] [address] Care Team Providers Care Studio Receptionist Name Role Phone Adal Terrell MD Primary Care Provide r Reason for Visit * Reason Onset Date Comments Med Refill 01/02/2023 Encounter Details Date Type Department Care Team ([facility] st Contact Info) Description 01/02/2023 Telephone [facility] MEDICINE [address] [place] [address] [phone] Adal Terrell MD 230 [place] [address] Med Refill Social History Tobacco Use Types [...] Description 12/14/2024 1:15 PM EDT Office Visit [facility] MEDICINE 230 [place] [address] Adal Terrell MD 230 [place] [address] 02/24/2025 1:30 PM EDT Clinical Support [facility] CHC MED & PEDS 505 [place], [place] [phone] Marci Kennedy, YANET 505 [place], [place] [phone] documented as of this encounter Visit Diagnoses Not on filedocumented in this encounter Additional Health Concerns Assessment Noted Time PHQ-9 Depression Total Score: 0 09/10/19 23 11:00 AM EST documented as of this encounter Care Teams Studio Receptionist Relationship Specialty Start Date End Date Adal Terrell MD [address] [place] [address] PCP - General Internal Medicine 03/08/14 documented as of this encounter
--- OUTSIDE RECORDS SUMMARY | 2024-12-03 07:56 | XMS_ITS | Encounter Summary ---
Author Organization [employer] Address [address] [facility] [address] 7t [place] [address] Care Team Providers Care Surgery Attendant Name Role Phone Adal Terrell MD Primary Care Provide r Encounter Details Date Type Department Care Team ([facility] st Contact Info) Description 11/09/2024 Telephone [facility] MEDICINE 230 [place], [place] [phone] Adal Terrell MD 230 [place] [address] Social History Tobacco Use Types Packs/Day Years [...] Visit [facility] MEDICINE 230 [place] [address] Adal Terrell MD [address] [place] [address] 02/24/2025 1:30 PM EDT Clinical Support [facility] CH[facility] MED & PEDS 505 [place] [address] Marci Kennedy, RN 505 [place] [address] documented as of this encounter Visit Diagnoses Not on filedocumented in this encounter Additional Health Concerns Assessment Noted Time PHQ-9 Depression Total Score: 5 01/27/20 24 10:54 AM EDT documented as of this encounter Care Teams Surgery Attendant Relationship Specialty Start Date End Date Adal Terrell MD [address] [place] [address] PCP - General Internal Medicine 03/08/14 documented as of this encounter
--- OUTSIDE RECORDS SUMMARY | 2024-12-03 07:56 | XMS_ITS | Encounter Summary ---
Author Organization [employer] Address [address] [facility] [address] 7t [place] [address] Care Team Providers Care Reservations Clerk Name Role Phone Adal Terrell MD Primary Care Provide r Encounter Details Date Type Department Care Team (Late st Contact Info) Description 02/16/2024 Orders Only [facility] MEDICINE 230 [place], [place] [phone] ProviderTogn MD Social History Tobacco Use Types Packs/Day Years [...] Description 12/14/2024 1:15 PM EDT Office Visit [facility] MEDICINE 230 [place] [address] Adal Terrell MD 230 [place] [address] 02/24/2025 1:30 PM EDT Clinical Support [facility] CHC MED & PEDS 505 [place] [address] Marci Kennedy, RN 505 [place] [address] documented as of this encounter Procedures Procedure [...] documented as of this encounter Care Teams Reservations Clerk Relationship Specialty Start Date End Date Adal Terrell MD 230 [place] [address] PCP - General Internal Medicine 03/08/14 documented as of this encounter
--- OUTSIDE RECORDS SUMMARY | 2024-12-03 07:57 | XMS_ITS | Encounter Summary ---
Author Organization [employer] Address [address] 7t [place] [address] Care Team Providers Care Rod Puller And Coiler Name Role Phone Adal Terrell MD Primary Care Provide r Encounter Details Date Type Department Care Team ([facility] st Contact Info) Description 11/29/2024 Telephone [facility] MEDICINE 230 [place], [place] [phone] Lidia Melo RN Social History Tobacco Use Types Packs/Day Years [...] encounter Miscellaneous Notes * Telephone Encounter - Lidia Melo RN - 11/29/2024 12:13 PM EDT Tc to pt to let them know per PCP I will send the Flagyl. I do not think there is any interactionwith the meds she is using. Pt advised to avoid alcohol consumption white taking flagyl and 3 daysafter medication is completed. Pt expressed understanding and no further questions at this time. * Addendum Note - Craig Sandoval MD - 11/29/2024 11:52 AM EDTAddended by: CRAIG SANDOVAL on: 11/29/2024 11:52 AM Modules accepted: Orders * Telephone Encounter - Craig Sandoval MD - 11/29/2024 11:51 AM EDT I will send the Flagyl. I do not think there is any interaction with the meds she is using. * Telephone Encounter - Lidia Melo RN - 11/29/2024 10:41 AM EDT Tc to pt to let them know per PCP Please call the patient. Her vaginal swab testing showed BV, this is NOT and STD. All of the STD testing is negative. I would recommend treatment with oral flagyl if she having symptoms of vaginal discharge. Please let me know . Pt reports they went to the ED on 11/27/24 due to their kidney stones but was diagnosed with a UTI. Pt was rx cefpodoxime 200 mg PO BID 12 Days which pt started on Friday and phenazopyridine [Pyridium] 100 mg tablet 100 mg PO TID at discharge. Pt wants to make sure that if they take rx flagyl it will not interfere with the other medications they're currently taking. Informed pt we'll discuss with PCP and call them back to see what they recommend. Pt expressed understanding and message sent to covering provider for review. * Telephone Encounter - Lidia Melo RN - 11/29/2024 10:33 AM EDT ----- Message from Craig Sandoval MD sent at 11/29/2024 7:38 AM EDT ----- Please call the patient. Her vaginal swab testing showed BV, this is NOT and STD. All of the STD testing is negative. I would recommend treatment with oral flagyl if she having symptoms of vaginal discharge. Please let me know documented in this encounter Plan of Treatment Upcoming Encounters Date Type Department Care Team (Late st Contact Info) Description 12/14/2024 1:15 PM EDT Office Visit [facility] MEDICINE 230 [place] [address] Adal Terrell MD 230 [place] [address] 02/24/2025 1:30 PM EDT Clinical Support [facility] CHC MED & PEDS 505 [place] [address] Marci Kennedy, YANET 505 [place] [address] documented as of this encounter Visit Diagnoses Diagnosis Bacterial vaginosis- Primary Unspecified vaginitis and vulvovaginitis documented in this encounter Additional Health Concerns Assessment Noted Time PHQ-9 Depression Total Score: 5 01/27/20 24 10:54 AM EDT documented as of this encounter Care Teams Rod Puller And Coiler Relationship Specialty Start Date End Date Adal Terrell MD 230 [place] [address] PCP - General Internal Medicine 03/08/14 documented as of this encounter
--- OUTSIDE RECORDS SUMMARY | 2024-12-03 07:57 | XMS_ITS | Encounter Summary ---
Author Organization [employer] Address [address] [facility] [address] 7t [place] [address] Care Team Providers Care Marine Service Station Attendant Name Role Phone Adal Terrell MD Primary Care Provide r Reason for Visit * Reason Comments Care Coordination C3CM Initial assessm ent/ enrollment Encounter Details Date Type Department Care Team (Latest Contact Info) Description 11/30/2024 Patient Outreach [facility] MED & PEDS 505 [place] [address] Adal Terrell MD 230 [place] [address] Care Coordination ([facility] Initial assessment/ enrollment) Social History Tobacco Use Types Packs/Day Years [...] as of this encounter Progress Notes * Dee Tavarez RN - 11/30/2024 10:30 AM EDT CM Dee Tavarez RN placed outbound call to patient for agreed upon time for initial assessment for enrollment into Adult Care Management Program. Patient's name, , and address were verified. Pt states she is receiving out patient physical therapy for generalized pain. Per pt, she is up to datewith her annual check up with the eye doctor and will need to call [facility] dental to schedule an appointment. Pt states she has enough food to last her for the month but might be challenging for herwhen she changes her diet to be adherence to medical recommendation to avoid foods that exacerbate her IBS. Pt states she will request from PCP to refer her to boom worker to assist her with what kind of food to eat to prevent exacerbation of IBS. CM advised pt to notify CM so that pt will be connected to the resources in the community. Pt states she is currently not working and is on disability. Per pt, she has a form of transportation to all her medical appointments. Pt c/o generalized back pain and takes Oxycodone 10mg at bedtime for the pain with good effect. Pt reports she walks as a form of exercise, checks her BP daily and her BG as needed due to pain with pricking her finger. CM advised pt to discuss with PCP if pt will qualify for the freestyle marj so that she can be compliantwith BG check. According to pt, she sees a therapist weekly or bi weekly for anxiety and depressionwith good effect. Per pt, she feels safe in her home but feels unsafe in the neighborhood and will like [facility] to assist her to find a new low income apartment. Pt states she smokes marijuana for pain and relaxation and denies drinking alcohol or smoking cigarette. Pt states she is compliance with allher medications and denies any side effect at this time. Pt reports personal goals to get healthy and be compliance with all her medical recommendations to maintain health. CM plan includes health education, care coordination, appointment reminder, connecting patient to resources. Care management program explained and contact information given. Patient verbalizes understanding, and able to repeat back to headline writer. A follow up call will be placed within 10 days, patient agrees with plan. documented in this encounter Plan of Treatment Upcoming Encounters Date Type Department Care Team ([facility] st Contact Info) Description 12/14/2024 1:15 PM EDT Office Visit [facility] MEDICINE 230 [place] [address] Adal Terrell MD 230 [place] [address] 02/24/2025 1:30 PM EDT Clinical Support [facility] CHC MED & PEDS 505 [place] [address] Marci Kennedy, RN 505 [place] [address] documented as of this encounter Visit Diagnoses Not on filedocumented in this encounter Additional Health Concerns Assessment Noted Time PHQ-9 Depression Total Score: 0 12/01/19 10:42 AM EDT documented as of this encounter Care Teams Marine Service Station Attendant Relationship Specialty Start Date End Date Adal Terrell MD [address] [place] [address] PCP - General Internal Medicine 03/08/14 documented as of this encounter
--- OUTSIDE RECORDS SUMMARY | 2024-12-03 07:57 | XMS_ITS | Encounter Summary ---
Author Organization [employer] Address [address] 7[address] [place] [address] Care Team Providers Care Insole Stiffener Name Role Phone Adal Terrell MD Primary Care Provide r Reason for Visit * Reason Comments Med Refill Encounter Details Date Type Department Care Team (Late st Contact Info) Description 07/03/2023 Refill [facility] CHC MED & PEDS [address] [place], [place] [phone] Adal Terrell MD 230 [place], [place] [phone] Low vitamin D level Social History Tobacco [...] Description 12/14/2024 1:15 PM EDT Office Visit [facility] MEDICINE 230 [place] [address] Adal Terrell MD 230 [place] [address] 02/24/2025 1:30 PM EDT Clinical Support [facility] CHC MED & PEDS 505 [place], [place] [phone] Marci Kennedy, RN 505 [place] [address] documented as of this encounter Visit Diagnoses Diagnosis Low vitamin D level documented in this encounter Additional Health Concerns Assessment Noted Time PHQ-9 Depression Total Score: 0 09/10/19 23 11:00 AM EST documented as of this encounter Care Teams Insole Stiffener Relationship Specialty Start Date End Date Adal Terrell MD 230 [place] [address] PCP - General Internal Medicine 03/08/14 documented as of this encounter
--- OUTSIDE RECORDS SUMMARY | 2024-12-03 07:57 | XMS_ITS | Encounter Summary ---
Author Organization [employer] Address [address] [facility] [address] 7t [place] [address] Care Team Providers Care Refining Still Operator Name Role Phone Adal Terrell MD Primary Care Provide r Encounter Details Date Type Department Care Team ([facility] st Contact Info) Description 11/29/2024 Patient Outreach [facility] MEDICINE 230 [place] [address] Adal Terrell MD 230 [place] [address] Social History Tobacco Use Types Packs/Day Years [...] Description 12/14/2024 1:15 PM EDT Office Visit [facility] MEDICINE 230 [place] [address] Adal Terrell MD [address] [place] [address] 02/24/2025 1:30 PM EDT Clinical Support [facility] CHC MED & PEDS [address] [place] [address] Marci Kennedy, RN 505 [place] [address] documented as of this encounter Visit Diagnoses Not on filedocumented in this encounter Additional Health Concerns Assessment Noted Time PHQ-9 Depression Total Score: 5 01/27/20 24 10:54 AM EDT documented as of this encounter Care Teams Refining Still Operator Relationship Specialty Start Date End Date Adal Terrell MD [address] [place] [address] PCP - General Internal Medicine 03/08/14 documented as of this encounter
--- OUTSIDE RECORDS SUMMARY | 2024-12-03 07:57 | XMS_ITS | Encounter Summary ---
Author Organization [employer] Address 75 [facility] 7t [place] [address] Care Team Providers Care Lehr Stripper Name Role Phone Adal Terrell MD Primary Care Provide r Reason for Visit * Reason Onset Date Comments Appointment Request 10/29/2022 Encounter Details Date Type Department Care Team ([facility] st Contact Info) Description 10/29/2022 Telephone [facility] MEDICINE [address] [place] [address] Adal Terrell MD 230 [place] [address] Appointment Request Social History Tobacco Use Types [...] only with him. Please contact pt at [phone] documented in this encounter Plan of Treatment Upcoming Encounters Date Type Department Care Team (Late st Contact Info) Description 12/14/2024 1:15 PM EDT Office Visit [facility] MEDICINE 230 [place] [address] Adal Terrell MD 230 [place] [address] 02/24/2025 1:30 PM EDT Clinical Support [facility] MED & PEDS 505 [place], [place] [phone] Marci Kennedy, RN 505 [place], [place] [phone] documented as of this encounter Visit Diagnoses Not on filedocumented in this encounter Additional Health Concerns Assessment Noted Time PHQ-9 Depression Total Score: 0 09/10/19 23 11:00 AM EST documented as of this encounter Care Teams Lehr Stripper Relationship Specialty Start Date End Date Adal Terrell MD 230 [place] [address] PCP - General Internal Medicine 03/08/14 documented as of this encounter
--- OUTSIDE RECORDS SUMMARY | 2024-12-03 07:57 | XMS_ITS | Encounter Summary ---
Author Organization [employer] Address [address] [place] [address] Care Team Providers Care Truss Driver Helper Name Role Phone Adal Terrell MD Primary Care Provide r Reason for Visit * Reason Comments controlled substance treatment Encounter Details Date Type Department Care Team ([facility] Contact Info) Description 11/29/2024 2:00 PM EDT Telemedicine [facility] MED & PEDS [address] [place] [address] Marci Kennedy, YANET [address] [place] [address] Long-term current use of opiate analgesic Social History Tobacco Use Types Packs/Day Years [...] Progress Notes * Marci Kennedy RN - 11/29/2024 2:00 PM EDT S: TEASEL SETTER Televisit. Current rx Oxycodone 5 mg q 12 hrs prn. States has been taking as prescribed, usually at bedtime. Reports no adverse reactions. Current pain level 10/10. Patient states she usually takes medication at night. States med provides about 20-30% pain relief. Complaining of worsening pain. F/u with PCP 12/14/24, patient will discuss it at the visit. Patient ia a non smoker, no use of tobacco products, denies illicit drug use. Very rare ETOH use, pt aware of the risks associated with the combination of ETOH and opioids. Last PCP visit 09/09/24. No other questions/ concerns at this time. O: ENGINEERING EQUIPMENT OPERATOR verified. Pill count performed over the phone. Pt states she has 19 pills at this time, 15 expected. Medication is not overused by patient. A: TEASEL SETTER Visit; Chronic opioid use related to pain. P: Patient to continue taking medication only as prescribed; Next TEASEL SETTER [place] appointment 02/24/25 @ 1:30pm.TEASEL SETTER Agr renewal, bpi due at the visit. F/u with PCP 12/14/24. f/u sooner PRN. Patient verbalized understanding and agreed to plan. documented in this encounter Plan of Treatment Upcoming Encounters Date Type Department Care Team (Late st Contact Info) Description 12/14/2024 1:15 PM EDT Office Visit [facility] MEDICINE [address] [place] [address] Adal Terrell MD [address] [place] [address] 02/24/2025 1:30 PM EDT Clinical Support [facility] MED & PEDS [address] [place] [address] Marci Kennedy, YANET [address] [place] [address] documented as of this encounter Visit Diagnoses Diagnosis Long-term current use of opiate analgesic Encounter for long-term (current) use of other medications documented in this encounter Additional Health Concerns Assessment Noted Time PHQ-9 Depression Total Score: 5 01/27/20 24 10:54 AM EDT documented as of this encounter Care Teams Truss Driver Helper Relationship Specialty Start Date End Date Adal Terrell MD [address] [place] [phone] PCP - General Internal Medicine 03/08/14 documented as of this encounter
--- OUTSIDE RECORDS SUMMARY | 2024-12-03 07:57 | XMS_ITS | Encounter Summary ---
Author Organization [employer] Address [address] 7[address] [place] [address] Care Team Providers Care Spray Pilot Name Role Phone Adal Terrell MD Primary Care Provide r Encounter Details Date Type Department Care Team (Latest Contact Info) Description 11/29/2024 Travel Social History Tobacco Use Types Packs/Day [...] Description 12/14/2024 1:15 PM EDT Office Visit [facility] MEDICINE [address] [place] [address] Adal Terrell MD [address] [place] [address] 02/24/2025 1:30 PM EDT Clinical Support [facility] MED & PEDS [address] [place] [address] Marci Kennedy, RN 505 [place] [address] documented as of this encounter Visit Diagnoses Not on filedocumented in this encounter Additional Health Concerns Assessment Noted Time PHQ-9 Depression Total Score: 5 01/27/20 24 10:54 AM EDT documented as of this encounter Care Teams Spray Pilot Relationship Specialty Start Date End Date Adal Terrell MD [address] [place] [address] PCP - General Internal Medicine 03/08/14 documented as of this encounter
--- OUTSIDE RECORDS SUMMARY | 2024-12-03 07:57 | XMS_ITS | Encounter Summary ---
Author Organization [employer] Address [address] [place] [address] Care Team Providers Care Grant Coordinator Name Role Phone Adal Terrell MD Primary Care Provide r Encounter Details Date Type Department Care Team ([facility] st Contact Info) Description 11/30/2024 Plan of Care Documentation [facility] MEDICINE [address] [place], [place] [phone] Social History Tobacco Use Types Packs/Day Years [...] Description 12/14/2024 1:15 PM EDT Office Visit [facility] MEDICINE [address] [place] [address] Adal Terrell MD [address] [place] [address] 02/24/2025 1:30 PM EDT Clinical Support [facility] MED [facility] PEDS 505 [place] [address] Marci Kennedy, RN [address] [place] [address] documented as of this encounter Visit Diagnoses Not on filedocumented in this encounter Additional Health Concerns Assessment Noted Time PHQ-9 Depression Total Score: 0 12/01/19 25 10:42 AM EDT documented as of this encounter Care Teams Grant Coordinator Relationship Specialty Start Date End Date Adal Terrell MD [address] [place] [phone] PCP - General Internal Medicine 03/08/14 documented as of this encounter
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
--- OUTSIDE RECORDS SUMMARY | 2024-12-03 07:57 | XMS_ITS | Encounter Summary ---
Author Organization [employer] Address [address] [facility] [address] 7[address] [place] [address] Care Team Providers Care Shade Cloth Finisher Name Role Phone Adal Terrell MD Primary Care Provide r Reason for Visit * Reason Comments Med Refill Encounter Details Date Type Department Care Team ([facility] st Contact Info) Description 07/23/2023 Refill [facility] MEDICINE 230 [place], [place] [phone] Adal Terrell MD [address] [place], [place] [phone] Chronic right-sided low back pain with right-sided [...] Description 12/14/2024 1:15 PM EDT Office Visit [facility] MEDICINE 230 [place] [address] Adal Terrell MD [address] [place] [address] 02/24/2025 1:30 PM EDT Clinical Support [facility] MED & PEDS [address] [place] [address] Marci Kennedy, RN 505 [place], [place] [phone] documented as of this encounter Visit Diagnoses Diagnosis Chronic right-sided low back pain with right-sided sciatica Sacroiliac joint dysfunction Nonallopathic lesion of sacral region, not elsewhere classified documented in this encounter Additional Health Concerns Assessment Noted Time PHQ-9 Depression Total Score: 0 09/10/19 23 11:00 AM EST documented as of this encounter Care Teams Shade Cloth Finisher Relationship Specialty Start Date End Date Adal Terrell MD [address] [place] [address] [phone] PCP - General Internal Medicine 03/08/14 documented as of this encounter
--- OUTSIDE RECORDS SUMMARY | 2024-12-03 07:57 | XMS_ITS | Encounter Summary ---
Author Organization [employer] Address [address] 7[address] [place] [address] Care Team Providers Care Lathe Machine Operator Name Role Phone Adal Terrell MD Primary Care Provide r Encounter Details Date Type Department Care Team (Late st Contact Info) Description 11/29/2024 Orders Only [facility] MEDICINE [address] [place] [address] Adal Terrell MD [address] [place] [address] Recurrent urinary tract infection (Primary Dx) Social History Tobacco Use Types [...] Description 12/14/2024 1:15 PM EDT Office Visit [facility] MEDICINE [address] [place] [address] Adal Terrell MD [address] [place] [address] 02/24/2025 1:30 PM EDT Clinical Support [facility] MED [facility] PEDS 505 [place], [place] [phone] Marci Kennedy, YANET 505 [place] [address] Scheduled Orders Name Type Priority Associated Diagnoses Orde r Schedule Urinalysis, Complete, with Reflex to Culture Lab Routine Recurrent urinary tract infection Expected: 11/29/2024 (Approximate), Expires: 11/29/2025 documented as of this encounter Procedures Procedure Name Priority Date/Time Associated Diagnosis Comments CT ABDOMEN PELVIS WO CONTRAST Routine 11/29/2024 6:59 PM EDT URINALYSIS, COMPLETE, WITH REFLEX TO CULTURE Routine 11/29/2024 5:57 PM EDT Recurrent urinary tract infection CBC WITH AUTO DIFFERENTIAL Routine 11/29/2024 5:57 PM EDT Recurrent urinary tract infection HCG, QL, URINE Routine 11/29/2024 5:57 PM EDT Recurrent urinary tract infection HCG, TOTAL, QN Routine 11/29/2024 5:57 PM EDT Recurrent urinary tract infection COMPREHENSIVE METABOLIC PANEL Routine 11/29/2024 5:57 PM EDT Recurrent urinary tract infection CULTURE, URINE, ROUTINE Routine 11/29/2024 12:00 AM EDT Recurrent urinary tract infection documented in this encounter Results * CT Abdomen Pelvis w/o Contrast (11/29/2024 6:59 PM EDT) Anatomical Region Laterality Modality Body, Pelvis, Abdomen Computed T omography 11/29/2024 6:59 PM EDT Narrative 11/29/2024 7:00 PM EDT ?[address] ?[place] [address] ? CT Scan Report ? Signed ? Patient: Nisa Hall ?MR#: [id number] ?? [id number] ? : 1975 ?Acct:[id number] ? Age/Sex: 49 / F ?ADM Date: 11/29/24 ? Loc: HO.ED ? Attending Dr: ? Ordering Physician: Jasvir Clayton ?? Date of Service: 11/29/24 ?? Procedure(s): CT abdomen pelvis wo IV con ?? Accession Number(s): [id number] ? cc: Jasvir Clayton; Adal Alves MD ? Report Number: ?? [id number]: Total DLP = ??521.00 mGy-cm ? CLINICAL HISTORY: Flank pain being treated for pyelonephritis. ? CT of the abdomen and pelvis without intravenous contrast. ? Comparison 11/27/2024. ? Findings: ?? There is fatty infiltration of the liver. The gallbladder is unremarkable. ?? No renal or definite ureteral stones are seen. There is no hydronephrosis. ? The spleen and pancreas are unremarkable. ?? No abdominal aortic aneurysm. ?? No diverticulitis is identified. ?? Normal appendix. ?? There is no bowel obstruction. ? The bladder is nondilated. No definite ovarian abnormality is seen. ? There are several small granulomas in the lower lungs. There is severe ?? facet disease in the lower lumbar spine. ? Impression: ?? No renal or definite ureteral stones. ?? Other findings as above. ? This document has been electronically signed by: Bhargav Pedersen MD on ?? 11/29/2024 18:59:18 ? Dictated By: ?Cole Grant MD ? Signed By: ?<Electronically signed by Cole Grant MD in OV> ?11/29/240 ? DD/ 58 ? TD/TT: 11/29/241858 ? Supervisor Particleboard: ? Procedure Note Donotbinduter, Image - 11/29/[address] [place] [address] [address] Scan Report Signed Patient: Nisa HallMR#: [id number] : 1975Acct:[id number] Age/Sex: 49 / FADM Date: 11/29/24 Loc: HO.ED Attending Dr: Ordering Physician: Jasvir Clayton Date of Service: 11/29/24 Procedure(s): CT abdomen pelvis wo IV con Accession Number(s): [id number] cc: Jasvir Clayton; Adal Alves MD Report Number: [id number]: Total DLP = 521.00 mGy-cm CLINICAL HISTORY: Flank pain being treated for pyelonephritis. CT of the abdomen and pelvis without intravenous contrast. Comparison 11/27/2024. Findings: There is fatty infiltration of the liver. The gallbladder is unremarkable. No renal or definite ureteral stones are seen. There is no hydronephrosis. The spleen and pancreas are unremarkable. No abdominal aortic aneurysm. No diverticulitis is identified. Normal appendix. There is no bowel obstruction. The bladder is nondilated. No definite ovarian abnormality is seen. There are several small granulomas in the lower lungs. There is severe facet disease in the lower lumbar spine. Impression: No renal or definite ureteral stones. Other findings as above. This document has been electronically signed by: Bhargav Pedersen MD on 11/29/2024 18:59:18 Dictated By: Cole Grant MD Signed By: <Electronically signed by Cole Grant MD in OV> 11/29/241899 DD/ 58 TD/TT: 11/29/241858 Supervisor Particleboard: [facility] External Provider IMG CT PROCEDURES Final Result * hCG, Total, Quantitative (11/29/2024 5:57 PM EDT) HCG Quantitative <2 mIU/mL [facility] Comment:Weeks post LMP Appr oximate hCG(Last Menstrual Period) Range (mIU/ml)3 - 4 weeks 9 - 1304 - 5 weeks 75 - 2,6005 - 6 weeks 850 - 20,8006 - 7 weeks 4000 - 100,2007 - 12 weeks 11,500 - 289,58726 - 16 weeks 18,300 - 137,83902 - 29 weeks (2nd trimester) 1,400 - 53,85928 - 41 weeks (3rd trimester) 940 - 60,000The Luong B- hCG assay is used for the early detection ofpregnancy; it cannot be used to diagnose any conditionunrelated to . If a B-hCG level is not supportedby the clinical evidence, results should be confirmed by analternative method (qualitative urine hCG, for example). 11/29/2024 5:57 PM EDT 11/29/2024 6:01 PM EDT Generic External Data Provider LAB BLOOD ORDERAB LES Final Result [facility] [address] [place] [phone] * (ABNORMAL) Comprehensive Metabolic Panel (11/29/2024 5:57 PM EDT) Sodium 140 135 - 145 mmol/L [facility] Potassium 3.7 3.3 - 5.1 mmol/L [facility] Chloride 105 96 - 108 mmol/L [facility] Carbon Dioxide 28 22 - 29 mmol/L [facility] Anion Gap 11(L) 12 - 20 [facility] Urea Nitrogen (BUN) 9 9 - 16 mg/dL [facility] Creatinine, Serum 0.74 0.5 - 1.4 mg/dL [facility] Creatinine Clr Calc Pharmacy 93.2 [facility] Comment:Provided height and weight: 160.02 cm,80.3 kg.eGFR (calculated from the MDRD study equation) and eCrCl(calculated from the Cockcroft-Gault equation) are based ondifferent parameters and may not yield comparable results.If eCrCl result is absurd, please check patient'sheight/weight. Estimated Glomerular Filt Rate >60 [facility] Comment:Chronic Kidney Disea se: Estimated GFR < 60 mL/min/1.58f2Cpgacr Kidney Disease: Estimated GFR < 15 mL/min/1.73m2 Glucose 92 60 - 115 mg/dL [facility] Calcium 9.4 8.4 - 10.2 mg/dL [facility] Bilirubin, Total 0.2 0.0 - 1.0 mg/dL [facility] Aspartate Amino Transferase 22 5 - 31 U/L [facility] Alanine Aminotransferase 27 0 - 31 U/L [facility] Total Protein 7.6 6.5 - 8.0 g/dL [facility] Albumin Level 4.3 3.5 - 5.0 g/dL [facility] Alkaline Phosphatase 78 39 - 117 U/L [facility] 11/29/2024 5:57 PM EDT 11/29/2024 6:01 PM EDT us Generic External Data Provider LAB BLOOD ORDERAB LES Final Result [facility] [address] [place] [phone] [phone] * (ABNORMAL) Urinalysis, Complete, with Reflex to Culture (11/29/2024 5:57 PM EDT) Color Urine DK YELLOW [facility] Appearance Urine Clear [facility] PH 5.0 5.0 - 9.0 [facility] Glucose Urine UA 100(A) Negative mg/dL [facility] Urine Blood Trace Negative [facility] Specific Neely - Urine <=1.005 1.005 - 1.025 [facility] Urine Protein Trace Neg-Trace mg/dL [facility] Urine Ketones Negative Negative mg/dL [facility] Nitrite Urine Positive(A) Negative [facility] Leukocyte Esterase Urine Negative Negative [facility] RBC Urine 0-2 0 - 2 /HPF [facility] Urine WBC 0-5 0 - 5 /HPF [facility] Urine Squamous Epithelial Cell 0-2 0 - 2 /HPF [facility] Urine Bacteria None Seen None Seen [facility] Hyaline Casts, Urine 0-2 0 - 2 /LPF [facility] 11/29/2024 5:57 PM EDT 11/29/2024 6:01 PM EDT Narrative [facility] - 11/29/2024 6:16 PM EDT [id number], Clean Catch us Generic External Data Provider LAB URINE ORDERAB LES Final Result Performing Organization Address City/State/[facility] Co de Phone Number [facility] [address] [place] [phone] * (ABNORMAL) CBC auto differential (11/29/2024 5:57 PM EDT) White Blood Count 14.1(H) 4.8 - 10.8 X10*3/uL [facility] Red Blood Count 4.49 4.20 - 5.50 X10*6/uL [facility] Hemoglobin 12.7 12.0 - 16.0 g/dl [facility] Hematocrit 37.8 37.0 - 47.0 % [facility] Mean Corpuscular Volume 84.2 80.0 - 98.0 fL [facility] Mean Corpuscular Hemoglobin 28.3 27.0 - 33.0 pg [facility] Mean Corpuscular HGB Conc 33.6 31.0 - 35.0 g/dl [facility] Red Cell Distribution Width 14.9 11.0 - 16.0 % [facility] Platelet Count 351 160 - 400 X10*3/uL [facility] Mean Platelet Volume 9.3(L) 9.4 - 12.3 fL [facility] Neutrophils Percent Auto 66.1 45 - 73 % [facility] Imm Gran Pct Auto 0.4 0.0 - 0.4 % [facility] Lymphocytes Percent Auto 25.7 20 - 40 % [facility] Monocytes Percent Auto 5.0 2 - 11 % [facility] Eosinophils Percent Auto 2.1 0 - 4 % [facility] Basophils Percent Auto 0.7 0 - 2 % [facility] NRBC Pct Auto 0.0 0.0 - 0.2 /100WBC [facility] Neutrophils Absolute Auto 9.3(H) 2.0 - 8.3 x10*3/uL [facility] Imm Gran Abs Auto 0.06(H) 0.00 - 0.03 X10*3/uL [facility] Lymphocytes Absolute Auto 3.6 1.2 - 4.9 X10*3/uL [facility] Monocytes Absolute Auto 0.7 0.1 - 1.2 X10*3/uL [facility] Eosinophils Absolute Auto 0.3 0.0 - 0.4 X10*3/uL [facility] Basophils Absolute Auto 0.1 0.0 - 0.2 X10*3/uL [facility] NRBC Abs Auto 0.000 0.0 - 0.012 X10*3/uL [facility] 11/29/2024 5:57 PM EDT 11/29/2024 6:01 PM EDT us Generic External Data Provider LAB BLOOD ORDERAB LES Final Result [facility] [address] [place] [phone] * HCG, Qualitative, Urine (11/29/2024 5:57 PM EDT) Urine NEGATIVE NEGATIVE [facility] Comment:This test was develo ped to detect early . Falsenegative results may occur after the 5th - 7th week ofpregnancy when using this test method. If clinicallyindicated, consider a serum hCG. 11/29/2024 5:57 PM EDT 11/29/2024 6:01 PM EDT Generic External Data Provider LAB URINE ORDERAB LES Final Result Performing Organization Address [facility]/ZIP Co de Phone Number [facility] [address] [place] [phone] * Culture, Urine, Routine (11/29/2024 12:00 AM EDT) Urine Urine specimen obtained by clean catch procedure / Unknown 11/29/2024 11/29/2024 Comment:UACC Narrative [facility] - 12/01/2024 11:08 AM EDT Urine Culture Report Result Urine Culture 10,000 to 50,000 cfu/ml Urine Culture Mixed bacterial srinivasa characteristic of Urine Culture urogenital contamination. Specimen Source: Urine clean catch Generic External Data Provider LAB MICROBIOLOGY - GENERAL ORDERABLES Final Result Performing Organization Address [facility] Co de Phone Number [facility] [address] [place] [phone] documented in this encounter Visit Diagnoses Diagnosis Recurrent urinary tract infection- Primary Urinary tract infection, site not specified documented in this encounter Additional Health Concerns Assessment Noted Time PHQ-9 Depression Total Score: 5 01/27/20 24 10:54 AM EDT documented as of this encounter Care Teams Lathe Machine Operator Relationship Specialty Start Date End Date Adal Terrell MD [address] [place] [phone] PCP - General Internal Medicine 03/08/14 documented as of this encounter
--- OUTSIDE RECORDS SUMMARY | 2024-12-03 07:57 | XMS_ITS | Encounter Summary ---
Author Organization [employer] Address [address] [facility] [address] [place] [address] Care Team Providers Care Security Specialist Name Role Phone Adal Terrell MD Primary Care Provide r Reason for Visit * Reason Onset Date Comments Results 08/13/2023 Encounter Details Date Type Department Care Team ([facility] Contact Info) Description 08/13/2023 Telephone [facility] MEDICINE [address] [place], [place] [phone] Adal Terrell MD [address] [place] [address] Results Social History Tobacco Use Types Packs/Day Years Used Date Smoking Tobacco: Never Passive Smoke Exposure: Never Smokeless Tobacco: Never Alcohol Use Standard Drinks/Week Comments Never 0 (1 standard drink = 0.6 oz pur e alcohol) Depression Answer Date Recorded Patient Health Questionnaire-9 Score 0 09/10/2022 Housing Stability Answer Date Recorded What is your housing situation today? I have amadamatt edmond 05/12/[address] you [...] Description 12/14/2024 1:15 PM EDT Office Visit [facility] MED[facility] [address] [place] [address] Adal Terrell MD [address] [place] [address] 02/24/2025 1:30 PM EDT Clinical Support [facility] & PEDS [address] [place] [address] Marci Kennedy, YANET [address] [place] [address] documented as of this encounter Visit Diagnoses Not on filedocumented in this encounter Additional Health Concerns Assessment Noted Time PHQ-9 Depression Total Score: 0 09/10/19 23 11:00 AM EST documented as of this encounter Care Teams Security Specialist Relationship Specialty Start Date End Date Adal Terrell MD [address] [place] [address] PCP - General Internal Medicine 03/08/14 documented as of this encounter
--- OUTSIDE RECORDS SUMMARY | 2024-12-03 07:57 | XMS_ITS | Clinical Summary ---
Author Organization [facility] Address [address] [place] [address] Care Team Providers Care City Alderman Name Role Phone Unavailable Primary Care Provider [...] (Ages 21-65) 1997 Mammogram 2016 Colonoscopy 2021 COVID-19 Vaccine (1 - 2023-2 5 season) 2024 Influenza Vaccine 02/25/2025 Pneumococcal Vaccine: Pediat douglas (0-5 Years) and At-Risk Patients (6 to 49 Years) Aged Out No longer eligible b ased on patient's age to complete this topic Insurance [facility]
--- OUTSIDE RECORDS SUMMARY | 2024-12-03 07:57 | XMS_ITS | Clinical Summary ---
Author Organization [facility] it Address [address] [place] [address] Care Team Providers Care Senior Manager Mergers & Acquisitions Name Role Phone Unavailable Primary Care Provider [...] Documents on File Type Date Recorded Patient Recruitment Director Expl anation Health Care Decision (hx) [...]
--- OUTSIDE RECORDS SUMMARY | 2024-12-03 07:57 | XMS_ITS | Encounter Summary ---
Author Organization [employer] Address [address] [facility] [address] [facility] [address] 7[address] [place] [address] Care Team Providers Care Bowl Sander Name Role Phone Adal Terrell MD Primary Care Provide r Reason for Visit * Reason Comments Care Coordination C3 chart review Encounter Details Date Type Department Care Team (Latest Contact Info) Description 11/29/2024 Patient Outreach [facility] MED & PEDS [address] [place], [place] [phone] Adal Terrell MD [address] [place] [address] Care Coordination (C3 chart review) Social History Tobacco Use Types Packs/Day Years [...] Progress Notes * Dee Tavarez RN - 11/29/2024 8:31 AM EDT AKILAH Tavarez RN, performed chart review, in anticipation of initial assessment with patient, as patient has stratified for C3 Adult Complex Care through the ADT feed. History significant for chronic low back pain, fibromyalgia. Specialists include OT, PT, OBGYN, Vascular surgery, GI, Neurology, [facility] spine center. ED visits within the last 12 months include one visit. Patient was seen at [facility] ED on 11/27/24. Last appointment in PCP office on 11/27/24. Next appointment scheduled for 12/14/24. documented in this encounter Plan of Treatment Upcoming Encounters Date Type Department Care Team (Late st Contact Info) Description 12/14/2024 1:15 PM EDT Office Visit [facility] MEDICINE 230 [place] [address] Adal Terrell MD [address] [place] [address] 02/24/2025 1:30 PM EDT Clinical Support [facility] MED & PEDS [address] [place] [address] Marci Kennedy, YANET [address] [place] [address] documented as of this encounter Visit Diagnoses Not on filedocumented in this encounter Additional Health Concerns Assessment Noted Time PHQ-9 Depression Total Score: 5 01/27/20 24 10:54 AM EDT documented as of this encounter Care Teams Bowl Sander Relationship Specialty Start Date End Date Adal Terrell MD [address] [place] [address] PCP - General Internal Medicine 03/08/14 documented as of this encounter
--- OUTSIDE RECORDS SUMMARY | 2024-12-03 07:57 | XMS_ITS ---
Author Organization [employer] Address [address] [place] [address] [address] [place] [address] Care Team Providers Care Instructor Decorating Name Role Phone Adal Terrell MD Primary Care Provide r CM Complex Status:Enrolled (Active) Start date:11/29/2024 Enrollment date:11/30/2024 Enrollment reason:ADT Feed Overview ADT- [facility] ED 11/27/24 Case Team Name Relationship Phone Dee Tavarez RN Registered Nurse(Responsible S taff) [phone] Continued Care and Services Coordination
--- OUTSIDE RECORDS SUMMARY | 2024-12-03 07:57 | XMS_ITS | Encounter Summary ---
Author Organization [employer] Address [address] [facility] [facility] [address] 7t [place] [address] Care Team Providers Care Assistant Manager Retail Name Role Phone Adal Terrell MD Primary Care Provide r Reason for Visit * Reason Onset Date Comments Med Refill 03/08/2024 Encounter Details Date Type Department Care Team ([facility] st Contact Info) Description 03/08/2024 Telephone [facility] MEDICINE [address] [place] [address] Adal Terrell MD [address] [place] [address] Med Refill Social History Tobacco Use Types [...] immediate release tablet To be sent to: [facility] documented in this encounter Plan of Treatment Upcoming Encounters Date Type Department Care Team (Late st Contact Info) Description 12/14/2024 1:15 PM EDT Office Visit [facility] MEDICINE [address] [place] [address] Adal Terrell MD [address] [place] [address] 02/24/2025 1:30 PM EDT Clinical Support [facility] CHC MED & PEDS [address] [place] [address] Marci Kennedy, YANET 505 [place] [address] documented as of this encounter Visit Diagnoses Not on filedocumented in this encounter Additional Health Concerns Assessment Noted Time PHQ-9 Depression Total Score: 5 01/27/20 24 10:54 AM EDT documented as of this encounter Care Teams Assistant Manager Retail Relationship Specialty Start Date End Date Adal Terrell MD [address] [place] [address] PCP - General Internal Medicine 03/08/14 documented as of this encounter
--- OUTSIDE RECORDS SUMMARY | 2024-12-03 07:57 | XMS_ITS | Encounter Summary ---
Author Organization [employer] Address [address] 7[address] [place] [address] Care Team Providers Care Candy Mixer Name Role Phone Adal Terrell MD Primary Care Provide r Encounter Details Date Type Department Care Team (Late st Contact Info) Description 11/05/2024 Orders Only [facility] CHC MED & PEDS [address] [place], [place] [phone] Provider, MD Tong Social History Tobacco Use [...] Description 12/14/2024 1:15 PM EDT Office Visit [facility] MEDICINE 230 [place] [address] Adal Terrell MD 230 [place] [address] 02/24/2025 1:30 PM EDT Clinical Support [facility] CH[facility] MED & PEDS 505 [place] [address] Marci Kennedy, RN [address] [place] [address] documented as of this encounter Procedures Procedure [...] ORDERAB LES Final Result Performing Organization Address [facility] Co de Phone Number [facility] [address] [place] [phone] * (ABNORMAL) Iron And Total Iron Binding Capacity (11/05/2024 2:58 PM EDT) [facility] Iron 35 30 - 160 mcg/dL [...] Result Performing Organization Address [facility] de Phone Number [facility] [address] [place] [phone] * (ABNORMAL) CBC (11/05/2024 2:58 PM EDT) [facility] White Blood Count 14.9(H) 4.8 - [...] Result [facility] [address] [place] [phone] * Hm Colonoscopy (11/02/2024 9:48 AM [...] documented as of this encounter Care Teams Candy Mixer Relationship Specialty Start Date End Date Adal Terrell MD [address] [place] [address] PCP - General Internal Medicine 03/08/14 documented as of this encounter
--- OUTSIDE RECORDS SUMMARY | 2024-12-03 07:57 | XMS_ITS | Encounter Summary ---
Author Organization [employer] Address [address] [address] 7t [place] [address] Care Team Providers Care Family And Consumer Education Teacher Name Role Phone Adal Terrell MD Primary Care Provide r Reason for Visit * Reason Onset Date Comments Med Refill 02/09/2024 Encounter Details Date Type Department Care Team ([facility] st Contact Info) Description 02/09/2024 Telephone [facility] MEDICINE 230 [place] [address] Adal Terrell MD 230 [place] [address] Med Refill Social History Tobacco Use Types [...] immediate release tablet To be sent to: [id number] [place], [place] - [address] [facility] documented in this encounter Plan of Treatment Upcoming Encounters Date Type Department Care Team ([facility] Contact Info) Description 12/14/2024 1:15 PM EDT Office Visit [facility] MEDICINE [address] [place] [address] Adal Terrell MD [address] [place] [address] 02/24/2025 1:30 PM EDT Clinical Support [facility] CH[facility] MED & PEDS 505 [place] [address] Marci Kennedy RN 505 [place] [address] documented as of this encounter Visit Diagnoses Not on filedocumented in this encounter Additional Health Concerns Assessment Noted Time PHQ-9 Depression Total Score: 5 01/27/20 24 10:54 AM EDT documented as of this encounter Care Teams Family And Consumer Education Teacher Relationship Specialty Start Date End Date Adal Terrell MD [address] [place] [address] PCP - General Internal Medicine 03/08/14 documented as of this encounter
--- OUTSIDE RECORDS SUMMARY | 2024-12-03 07:57 | XMS_ITS | Encounter Summary ---
Author Organization [employer] Address [address] [facility] [facility] [address] [place] [address] Care Team Providers Care Certified Wellness Program Coordinator Name Role Phone Adal Terrell MD Primary Care Provide r Reason for Visit * Reason Comments Med Refill Encounter Details Date Type Department Care Team ([facility] st Contact Info) Description 04/05/2024 Refill [facility] MEDICINE [address] [place], [place] [phone] Ronel Thomas ANP 230 [place], [place] [phone] COVID-19 Social History Tobacco Use Types Packs/Day [...] Description 12/14/2024 1:15 PM EDT Office Visit [facility] MEDICINE [address] [place] [address] Adal Terrell MD [address] [place] [address] 02/24/2025 1:30 PM EDT Clinical Support [facility] CHC MED & PEDS [address] [place], [place] [phone] Marci Kennedy, RN 505 [place] [address] documented as of this encounter Visit Diagnoses Diagnosis COVID-19 documented in this encounter Additional Health Concerns Assessment Noted Time PHQ-9 Depression Total Score: 5 01/27/20 24 10:54 AM EDT documented as of this encounter Care Teams Certified Wellness Program Coordinator Relationship Specialty Start Date End Date Adal Terrell MD [address] [place] [address] PCP - General Internal Medicine 03/08/14 documented as of this encounter
--- OUTSIDE RECORDS SUMMARY | 2024-12-03 07:57 | XMS_ITS | Encounter Summary ---
Author Organization [employer] Address [address] [facility] 7t [place] [address] Care Team Providers Care Senior Drafter Name Role Phone Adal Terrell MD Primary Care Provide r Reason for Visit * Reason Comments Care Coordination C3CM/CHW Satish paris, Chart review Encounter Details Date Type Department Care Team (Latest Contact Info) Description 11/29/2024 Patient Outreach [facility] MEDICINE [address] [place] [address] Adal Terrell MD [address] [place] [address] Care Coordination (C3CM/ELAINA Bran, Chart review ) Social History Tobacco Use Types Packs/Day Years [...] your housing situation today? I have amada sing 01/27/[address] you li [...] as of this encounter Progress Notes * Satish Bran - 11/29/2024 8:38 AM EDT AKILAH Tavarez RN, performed chart review, in [facility] Satish Bran reviewed chart review completedby AKILAH Tavarez RN: anticipation of initial assessment with patient, as patient has stratifiedfor C3 Adult Complex Care through the ADT feed. History significant for chronic low back pain, fibro myalgia. Specialists include OT, PT, OBGYN, Vascular surgery, GI, Neurology, [facility] spine center. ED visits within the last 12 months include one visit. Patient was seen at [facility] ED on 11/27/24. Last appointment in PCP office on 11/27/24. Next appointment scheduled for 12/14/24. * Wayne Luke - 11/29/2024 8:38 AM EDT Tc from pt returning outbound call informing to please return call at 3pm as she's currently working and is unable to answer phone. [phone] documented in this encounter Plan of Treatment Upcoming Encounters Date Type Department Care Team (Late st Contact Info) Description 12/14/2024 1:15 PM EDT Office Visit [facility] MEDICINE [address] [facility] [place] [address] Adal Terrell MD [address] [facility] [place] [address] 02/24/2025 1:30 PM EDT Clinical Support [facility] CHC MED & PEDS 505 [place] [address] Marci Kennedy, RN 505 [place] [address] documented as of this encounter Visit Diagnoses Not on filedocumented in this encounter Additional Health Concerns Assessment Noted Time PHQ-9 Depression Total Score: 5 01/27/20 24 10:54 AM EDT documented as of this encounter Care Teams Senior Drafter Relationship Specialty Start Date End Date Adal Terrell MD 230 [facility] [address] PCP - General Internal Medicine 03/08/14 documented as of this encounter
--- OUTSIDE RECORDS SUMMARY | 2024-12-03 07:57 | XMS_ITS | Encounter Summary ---
Author Organization [employer] Address [address] 7[address] [place] [address] Care Team Providers Care Manager Marketing Name Role Phone Adal Terrell MD Primary Care Provide r Encounter Details Date Type Department Care Team ([facility] Contact Info) Description 11/29/2024 Telephone [facility] CHC MED & PEDS 505 [place] [address] Marci Kennedy RN [address] [place] [address] Social History Tobacco Use Types Packs/Day Years [...] Telephone Encounter - Marci Kennedy RN - 11/29/2024 2:00 PM EDT ..What SHEEPSKIN PICKLER Tier would you like this patient to be? Tier 1 = HIGH RISK, Monthly SHEEPSKIN PICKLER visits Tier 2 = MODerate RISK, Q3 Month visits Tier 3 = LOW RISK = Q4-6 month visits documented in this encounter Plan of Treatment Upcoming Encounters Date Type Department Care Team (Late st Contact Info) Description 12/14/2024 1:15 PM EDT Office Visit [facility] MEDICINE 230 [place] [address] Adal Terrell MD 230 [place] [address] 02/24/2025 1:30 PM EDT Clinical Support [facility] CHC MED & PEDS [address] [place] [address] Marci Kennedy RN [address] [place] [address] documented as of this encounter Visit Diagnoses Not on filedocumented in this encounter Additional Health Concerns Assessment Noted Time PHQ-9 Depression Total Score: 5 01/27/20 24 10:54 AM EDT documented as of this encounter Care Teams Manager Marketing Relationship Specialty Start Date End Date Adal Terrell MD [address] [place] [address] PCP - General Internal Medicine 03/08/14 documented as of this encounter
--- OUTSIDE RECORDS SUMMARY | 2024-12-03 07:57 | XMS_ITS ---
Author Organization [employer] Address [address] [place] [address], [place] [address] Care Team Providers Care Early Childhood Lead Teacher Name Role Phone Adal Terrell MD Primary Care Provide r CHW Complex Status:Enrolled (Active) Start date:11/29/2024 Enrollment date:11/29/2024 Enrollment reason:ADT Feed Overview ADT- [facility] ED 11/27/24 Case Team Name Relationship Phone Satish Bran (Responsible Staff) [phone] Continued Care and Services Coordination
--- OUTSIDE RECORDS SUMMARY | 2024-12-03 07:57 | XMS_ITS | Encounter Summary ---
Author Organization [employer] Address [address] [facility] [address] [facility] [address] 7t [place] [address] Care Team Providers Care Centerless Grinder Tender Name Role Phone Adal Terrell MD Primary Care Provide r Encounter Details Date Type Department Care Team ([facility] st Contact Info) Description 11/30/2024 Patient Outreach [facility] MEDICINE 230 [place] [address] Adal Terrell MD 230 [place] [address] Social History Tobacco Use Types Packs/Day Years [...] encounter Progress Notes * Satish Bran - 11/30/2024 10:15 AM EDT CHW Satish Bran placed outbound call to patient in regards to rescheduling missed initial assessment appointment on 11/29/24 for Adult Complex Care program services. Patient's name and were confirmed. Initial Assessment appointment scheduled for 11/30/24 at 10:30 AM. CHW will set up an appointment reminder and will notify CM. CHW provided contact information of [phone] for any questions or concerns. documented in this encounter Plan of Treatment Upcoming Encounters Date Type Department Care Team ([facility] st Contact Info) Description 12/14/2024 1:15 PM EDT Office Visit [facility] MEDICINE 230 [place] [address] Adal Terrell MD 230 [place] [address] 02/24/2025 1:30 PM EDT Clinical Support [facility] CHC MED & PEDS 505 [place] [address] Marci Kennedy, YANET 505 [place] [address] documented as of this encounter Visit Diagnoses Not on filedocumented in this encounter Additional Health Concerns Assessment Noted Time PHQ-9 Depression Total Score: 0 12/01/19 25 10:42 AM EDT documented as of this encounter Care Teams Centerless Grinder Tender Relationship Specialty Start Date End Date Adal Terrell MD [address] [place] [address] PCP - General Internal Medicine 03/08/14 documented as of this encounter
--- OUTSIDE RECORDS SUMMARY | 2024-12-03 07:57 | XMS_ITS | Encounter Summary ---
Author Organization [employer] Address [address] [facility] [facility] [address] 7[address] [place] [address] Care Team Providers Care Relief Man Name Role Phone Adal Terrell MD Primary Care Provide r Encounter Details Date Type Department Care Team ([facility] st Contact Info) Description 02/05/2024 Orders Only [facility] MEDICINE [address] [place] [address] Adal Terrell MD [address] [place] [address] Social History Tobacco Use Types Packs/Day Years [...] Description 12/14/2024 1:15 PM EDT Office Visit [facility] MEDICINE [address] [place] [address] Adal Terrell MD [address] [place] [address] 02/24/2025 1:30 PM EDT Clinical Support [facility] MED & PEDS 505 [place] [address] Marci Kennedy, RN 505 [place] [address] documented as of this encounter Procedures Procedure [...] documented as of this encounter Care Teams Relief Man Relationship Specialty Start Date End Date Adal Terrell MD [address] [place] [address] PCP - General Internal Medicine 03/08/14 documented as of this encounter
--- OUTSIDE RECORDS SUMMARY | 2024-12-03 07:57 | XMS_ITS | Encounter Summary ---
Author Organization [employer] Address [address] [facility] 7t [place] [address] Care Team Providers Care Escalator Attendant Name Role Phone Adal Terrell MD Primary Care Provide r Reason for Visit * Reason Comments Care Coordination C3CM/EALINA paris, YANDEL enrollment, SDOH assessment Encounter Details Date Type Department Care Team (Latest Contact Info) Description 11/29/2024 Patient Outreach [facility] MEDICINE 230 [place] [address] Adal Terrell MD [address] [place] [address] Care Coordination (LAMIN/YANDEL Treviño enrollment, SDOH assessment ) Social History Tobacco Use Types Packs/Day [...] Progress Notes * Satish Bran - 11/29/2024 9:28 AM EDT CHW Satish Bran placed outbound call to patient to assess SDOH needs. Patient's name, and address confirmed. Patient states is doing well. Patient denies any SDOH needs at this time. No further questions or concerns. CHW reinforced direct contact information or CM for any additional questions or concerns and extended clinic hours on Mondays and Wednesdays, [facility] Located in [facility]. Patient provided with after-hours line for [facility], , which offer night time triage service and option to transfer to probation agent provider if needed. Patient verbalizes understanding, and able to repeat back to credit underwriter. A follow up call will be placedwithin 10 days, patient agrees with plan. documented in this encounter Plan of Treatment Upcoming Encounters Date Type Department Care Team ([facility] st Contact Info) Description 12/14/2024 1:15 PM EDT Office Visit [facility] MEDICINE 230 [place] [address] Adal Terrell MD [address] [place] [address] 02/24/2025 1:30 PM EDT Clinical Support [facility] CHC MED & PEDS 505 [place] [address] Marci Kennedy, RN 505 [place] [address] documented as of this encounter Visit Diagnoses Not on filedocumented in this encounter Additional Health Concerns Assessment Noted Time PHQ-9 Depression Total Score: 5 01/27/20 24 10:54 AM EDT documented as of this encounter Care Teams Escalator Attendant Relationship Specialty Start Date End Date Adal Terrell MD 230 [place] [address] PCP - General Internal Medicine 03/08/14 documented as of this encounter
--- OUTSIDE RECORDS SUMMARY | 2024-12-03 07:57 | XMS_ITS | Clinical Summary ---
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 Estimated GFR < 15 mL/min/1.73m2 Glucose 92 60 - 115 mg/dL [facility] Calcium 9.4 8.4 - 10.2 mg/dL [facility] Bilirubin, Total 0.2 0.0 - 1.0 mg/dL [facility] Aspartate Amino Transferase 22 5 - 31 U/L [facility] Alanine Aminotransferase 27 0 - 31 U/L [facility] Total Protein 7.6 6.5 - 8.0 g/dL [facility] Albumin Level 4.3 3.5 - 5.0 g/dL [facility] Alkaline Phosphatase 78 39 - 117 U/L [facility] 11/29/2024 5:57 PM EDT 11/29/2024 6:01 PM EDT us Generic External Data Provider LAB BLOOD ORDERAB LES Final Result [facility] [address] [place] [phone] [phone] * Culture, Urine, Routine (11/29/2024 12:00 AM EDT) Only the most recent of2 resultswithin the time period is included. Urine Urine specimen obtained by clean catch procedure / Unknown 11/29/2024 11/29/2024 Comment:UACC Narrative [facility] - 12/01/2024 11:08 AM EDT Urine Culture Report Result Urine Culture 10,000 to 50,000 cfu/ml Urine Culture Mixed bacterial srinivasa characteristic of Urine Culture urogenital contamination. Specimen Source: Urine clean catch Generic External Data Provider LAB MICROBIOLOGY - GENERAL ORDERABLES Final Result Performing Organization Address [facility] Co de Phone Number [facility] [address] [place] [phone] * Blood Culture (Second) (11/27/2024 3:16 PM EDT) Blood Venous blood specimen / Unknown 11/27/2024 3:16 PM EDT 11/27/2024 3:20 PM EDT Comment:Blood Narrative [facility] - 12/02/2024 5:20 PM EDT Blood Culture (Second) No growth after 5 days. Specimen Source: Blood Generic External Data Provider LAB MICROBIOLOGY - GENERAL ORDERABLES Final Result Performing Organization Address [facility] de Phone Number [facility] [address] [place] [phone] * Blood Culture (First) (11/27/2024 3:12 PM EDT) Blood Venous blood specimen / Unknown 11/27/2024 3:12 PM EDT 11/27/2024 3:20 PM EDT Comment:Blood Narrative [facility] - 12/02/2024 5:22 PM EDT Blood Culture (First) No growth after 5 days. Specimen Source: Blood Generic External Data Provider LAB MICROBIOLOGY - GENERAL ORDERABLES Final Result Performing Organization Address [facility] Co de Phone Number [facility] [address] [place] [phone] * (ABNORMAL) Bacterial Vaginosis Panel (11/27/2024 11:24 AM EDT) TRICHOMONAS VAGINALIS DETECTION BY PCR NOT DETECTED Not Detect [facility] BACTERIAL VAGINOSIS DETECTION BY PCR POSITIVE(A) Negative [facility] Comment:The BV organism targ ets of the Xpert Xpress MVP test can becommensal in women; Xpert Xpress MVP positive results forbacterial vaginosis should be considered in conjunction withother clinical and patient information to determine thedisease status. Organisms that are not detected by the XpertXpress MVP test have also been reported to be associatedwith BV and aerobic vaginitis.The Xpert Xpress MVP test performance has not been evaluatedin patients under the age of 14. TASHA GROUP DETECTION BY PCR NOT DETECTED Not Detect [facility] Tasha glab krusei PCR NOT DETECTED Not Detect [facility] Swab Vaginal structure / Unknown 11/27/2024 11:24 AM EDT 11/27/2024 2:45 PM EDT us Craig Mallory MD LAB MICROBIOLOGY - GENERAL ORDER CARLOS Final Result [facility] [address] [place] [phone] * Chlamydia/N. Gonorrhoeae RNA, TMA, Urogenitial (11/27/2024 11:24 AM EDT) CT PCR NOT DETECTED Not Detect. [facility] Comment:A not detected test result does not exclude the possibilityof infection because test results can be affected byimproper specimen collection, concurrent antibiotic therapy,or the number of organisms in the specimen which may bebelow the sensitivity of the test. As with many diagnostictests, results from the Xpert CT/NG assay should beinterpreted in conjunction with other laboratory andclinical data available to the clinician.Xpert CT/NG performance has not been evaluated in patientsless than 14 years of age. The assay should not be used forthe evaluationof suspected sexual abuse or for other medico-legalindications. Additional testing is recommended in anycircumstance when false positive or false negative resultscould lead to adverse medical, social or psychologicalconsequences. NG PCR NOT DETECTED Not Detect. [facility] Comment:A not detected test result does not exclude the possibilityof infection because test results can be affected byimproper specimen collection, concurrent antibiotic therapy,or the number of organisms in the specimen which may bebelow the sensitivity of the test. As with many diagnostictests, results from the Xpert CT/NG assay should beinterpreted in conjunction with other laboratory andclinical data available to the clinician.Xpert CT/NG performance has not been evaluated in patientsless than 14 years of age. The assay should not be used forthe evaluationof suspected sexual abuse or for other medico-legalindications. Additional testing is recommended in anycircumstance when false positive or false negative resultscould lead to adverse medical, social or psychologicalconsequences. Swab (Vaginal Swab) 11/27/2024 11:24 AM EDT 11/27/2024 2:42 PM EDT Narrative [facility] - 11/28/2024 12:18 PM EDT Vaginal us Craig Mallory MD LAB MICROBIOLOGY - GENERAL ORDER CARLOS Final Result Performing Organization Address City/State/[facility] Co de Phone Number [facility] [address] [place] [phone] * (ABNORMAL) POCT urinalysis dipstick manually resulted [...] 11/27/2024 11:2 2 AM EDT us Craig Mallory MD POINT OF CARE TEST ENTER/EDIT OR DERABLES Final Result * (ABNORMAL) Iron And Total Iron Binding Capacity (11/05/2024 2:58 PM EDT) Iron 35 30 - 160 mcg/dL [facility] Total Iron Binding Capacity 302 228 - 428 mcg/dL [facility] Percent Iron Saturation 12(L) 15 - 50 % [facility] Unsaturated Iron Binding 267 ug/dL [facility] 11/05/2024 2:5 8 PM EDT 11/05/2024 2:58 PM EDT us Generic External Data Provider LAB BLOOD ORDERAB LES Final Result [facility] [address] [place] [address] [phone] * (ABNORMAL) CBC (11/05/2024 2:58 PM EDT) White Blood Count 14.9(H) 4.8 - 10.8 X10*3/uL [facility] Red Blood Count 4.57 4.20 - 5.50 X10*6/uL [facility] Hemoglobin 12.9 12.0 - 16.0 g/dl [facility] Hematocrit 38.2 37.0 - 47.0 % [facility] Mean Corpuscular Volume 83.6 80.0 - 98.0 fL [facility] Mean Corpuscular Hemoglobin 28.2 27.0 - 33.0 pg [facility] Mean Corpuscular HGB Conc 33.8 31.0 - 35.0 g/dl [facility] Red Cell Distribution Width 15.6 11.0 - 16.0 % [facility] Platelet Count 352 160 - 400 X10*3/uL [facility] Mean Platelet Volume 9.4 9.4 - 12.3 fL [facility] NRBC Pct Auto 0.0 0.0 - 0.2 /100WBC [facility] NRBC Abs Auto 0.000 0.0 - 0.012 X10*3/uL [facility] 11/05/2024 2:58 PM EDT 11/05/2024 2:58 PM EDT us Generic External Data Provider LAB BLOOD ORDERAB LES Final Result Performing Organization Address City/[facility]/ZIP Co de Phone Number [facility] [address] [place] [phone] * Ferritin (11/05/2024 2:58 PM EDT) Ferritin 134 10 - 250 ng/mL [facility] 11/05/2024 2:58 PM EDT 11/05/2024 2:58 PM EDT us Generic External Data Provider LAB BLOOD ORDERAB LES Final Result Performing Organization Address [facility] Co de Phone Number [facility] [address] [place] [phone] * Hm Colonoscopy (11/02/2024 9:48 AM EDT) Colonoscopy Normal Normal Narrative Georgiana Longo - 11/02/2024 9:48 AM EDT See external hospital admission note on 11/02/2024 . Repeat in 6-12 months due to poor prep Historical Provider HEALTH MAINTENANCE Edited Result - Final * Hematoxylin and Eosin Stain (11/02/2024 8:23 AM EDT) 11/02/2024 8:23 AM EDT 11/02/2024 9:54 AM EDT Chemo [facility] - 11/09/2024 1:53 PM EDT ----- ------- Name: Nisa Hall ?Age/Sex: 48/F ? : 1975 Unit#: [id number] ?? Attend Dr: Vee Marques MD ?Re11/02/24 ?Status: DEP SDC ? Location: HO.SSS ?Disch: ? ----- ------- SPEC : [id number] ? RECD: 11/02/24 ? STATUS: ??SOUT ? REQ NUM: [id number] ? JAMES: 11/02/24-822 ? SUBM DR: Vee Marques MD ? ENTERED: ??11/02/24-1006 ?SP TYPE: Surgical ? OTHR DR: Adal Alves MD ?? ORDERED: ??HE Stain/18, Gross Micro L4/6, IHC/2, Special st. 2, H. pylori/2, AB/PAS ? COMMENTS: Block C sent to [facility] for Gastrin IHC on 11/04/24. ?Addendum Addendum ??1 ?Entered: 11/09/24-6345 (C): ??Immunostain for gastrin is negative in [...] Hall ?Age/Sex: 48/F ? : 1975 Unit#: [id number] ?? Attend Dr: Vee Marques MD ?Re11/02/24 ?Status: DEP SDC ? Location: HO.SSS ?Disch: ? ----- ------- SPEC : [id number] ? RECD: 11/02/24 ? STATUS: ??SOUT ? REQ NUM: [id number] ? JAMES: 11/02/24-822 ? SUBM DR: Vee Marques MD ? ENTERED: ??11/02/24 ?SP TYPE: Surgical ? OTHR DR: Adal [...] Hall ?Age/Sex: 48/F ? : 1975 Unit#: [id number] ?? Attend Dr: Vee Marques MD ?Re11/02/24 ?Status: DEP SDC ? Location: HO.SSS ?Disch: ? ----- ------- SPEC : [id number] ? RECD: 11/02/24-953 ? STATUS: ??SOUT ? REQ NUM: [id number] ? JAMES: 11/02/24-822 ? SUBM DR: Vee Marques MD ? ENTERED: ??11/02/24-1006 ?SP TYPE: Surgical ? OTHR DR: Adal Alves MD ?? ORDERED: ??HE Stain/18, Gross Micro L4/6, IHC/2, Special st. 2, H. pylori/2, AB/PAS ? COMMENTS: Block C sent to [facility] for Gastrin IHC on 11/04/24. ? Gross Description ?(Continued) CEDS Special studies ordered and performed at [facility]: Immunostain for H. pylori on B1; AB/PAS stain on C1. Special studies ordered and performed at [facility]: Immunostain for gastrin on C1. Copies To: ?? Adal Alves MD ?? [facility] ?? [address] ?? [place] [address] ?? [phone] ?? Vee Marques MD ?? [facility] ?? [address] ?? [place] [address] ?? [phone] ?? [email or web address] ----- ------- Signed (signature on file) Gisella [place] 11/04/241913 ? ----- ------- ? END OF REPORT ? Generic External Data Provider LAB BLOOD ORDERAB LES Final Result Performing Organization Address [facility] de Phone Number [facility] [address] [place] [phone] * TSH with Reflex to Free T4 (09/10/2024 11:04 AM EST) Pathologist [facility] TSH reflex Free T4 2.55 0.32 - 4.0 uIU/mL [facility] Blood Venous blood specimen / Unknown 09/10/2024 11:04 AM EST 09/10/2024 11:04 AM EST Adal Mccarthy MD LAB BLOOD ORDERABLES Final Result Performing Organization Address [facility] de Phone Number [facility] [address] [place] [phone] * Vitamin B12 (09/10/2024 11:04 AM EST) Pathologist [facility] Vitamin B12 581 200 - 900 pg/mL [facility] Comment:NORMAL 200-900 PG/ML INDETERMINATE 160-199 PG/ML DEFICIENT < 160 PG/ML 09/10/2024 11:0 4 AM EST 09/10/2024 11:04 AM EST Generic External Data Provider LAB BLOOD ORDERAB LES Final Result Performing Organization Address [facility] de Phone Number [facility] [address] [place] [phone] * (ABNORMAL) Lipid Panel, Standard (09/10/2024 11:04 AM EST) [facility] Triglycerides 91 <150 mg/dL [facility] Comment:Desirable Triglyceri de: less than 150 mg/dLBorderline High Triglyceride 150-199 mg/dLHigh Triglyceride: 200-499 mg/dLVery High Triglyceride: greater than or equal to 5OO mg/dL Cholesterol 155 <200 mg/dL [facility] Comment:Desirable Cholestero l: less than 200 mg/dLBorderline High Cholesterol: 200-239 mg/dLHigh Cholesterol: greater than 239 mg/dL LDL Cholesterol Calculated 108(H) <100 mg/dL [facility] Comment:Desirable LDL: less than 100 mg/dLNear Optimal/Above Optimal LDL: 110- 129 mg/dLBorderline High LDL: 130-159 mg/dLHigh LDL: 160-189 mg/dLVery High LDL: greater than or equal to 190 mg/dL HDL Cholesterol 29(L) >40 mg/dL [facility] Comment:Desirable HDL: great er than 40 mg/dL Note: This HDL assay may give artificially low results in patients with liver disease. Blood Venous blood specimen / Unknown 09/10/2024 11:04 AM EST 09/10/2024 11:04 AM EST Adal Mccarthy MD LAB BLOOD ORDERABLES Final Result [facility] [address] [place] [phone] * POCT JANET-14 Urine Drug Screen (09/08/2024 2:17 PM EST) THC Positive Oxycodone Screen, Urine Positive Urine Urine specimen obtained by clean catch procedure / Unknown 09/08/2024 2:17 PM EST Narrative Marci Kennedy RN - 09/08/2024 2:17 PM EST Lot# [id number] Exp: 07-03-25 Adal Mccarthy MD POINT OF CARE TEST EN TER/EDIT ORDERABLES Final Result * FL Esophagus Barium Swallow w/Air (09/08/2024 10:00 AM EST) Anatomical Region Laterality Modality Head, Neck Radiographic Kasie ging 09/08/2024 10:0 0 AM EST Narrative 09/09/2024 9:04 AM EST ? [facility] ?[address] ?[place], [place] [address] ? Fluoroscopy Report ? Signed ? Patient: Hall,Nisa ?MR#: [id number] ?? [id number] ? : 1975 ?Acct:[id number] ? Age/Sex: 48 / F ?ADM Date: 09/08/24 ? Loc: HO.XRAY ? Attending Dr: Vee Marques MD ? Ordering Physician: Vee Marques MD ?? Date of Service: 09/08/24 ?? Procedure(s): FL barium swallow with air ?? Accession Number(s): [id number] ? cc: Adal Alves MD; Vee Marques [...] DD/ 1000 ? TD/TT: 09/08/24 1023 ? Putty Maker: ? Procedure Note Rosaura, Image - 09/09/2024 [place] [address] Fluoroscopy Report Signed Patient: Nisa HallMR#: [id number] : 1975Acct:[id number] Age/Sex: 48 / FADM Date: 09/08/24 Loc: HO.WAGNERAY Attending Dr: Vee Marques MD Ordering Physician: Vee Marques MD Date of Service: 09/08/24 Procedure(s): FL barium swallow with air Accession Number(s): [id number] cc: Adal Alves MD; Vee Marques MD [...] 09/09/24 0904 DD/ 1000 TD/TT: 09/08/24 1023 Putty Maker: us [facility] Exter nal Provider IMG FLUOROSCOPY PROCEDURES Edited Result - Final * Hemoglobin A1c (09/01/2024 3:07 PM EST) Hemoglobin A1c 5.9 <6.0 % [facility] Comment:Hemoglobin A1C Refer ence Range Adults: 4.8 - 6.0 % Non diabetic: < 6.0 % Goal: < 7.0 %Additional Action Suggested: > 8.0 %Note: Hemoglobin A1c results are invalid for patients with abnormal amounts of HbF. Blood transfusions may impact the HbA1c concentration in the patient sample. Estimated Average Glucose 123 mg/dL [facility] Comment:eAG = Estimated ave rage glucose which is %A1C expressed asaverage glucose, using the formula of the A7S-VewdlvpHnzydds Glucose study (ADAG), Diabetes Care, Vol.31,#8,Aug. 2007 09/01/2024 3:07 PM EST 09/01/2024 3:07 PM EST us Generic External Data Provider LAB BLOOD ORDERAB LES Final Result [facility] [address] [place] [phone] * BI Mammogram Screening Tomosynthesis Bilateral (08/26/2024 2:40 PM EST) Anatomical Region Laterality Modality Breast Bilateral Mammography 08/26/2024 2:40 PM EST Narrative 09/04/2024 7:21 PM EST ? [facility] ? [address] ?[place] [address] ? Mammography Report ? Signed ? Patient: Hall,Nisa ?MR#: [id number] ?? [id number] ? : 1975 ?Acct:[id number] ? Age/Sex: 48 / F ?ADM Date: 08/26/24 ? Loc: HO.MAMMO ? Attending Dr: Adal Alves MD ? Ordering Physician: Adal Alves MD ?Resu ?? lts: 2Benign Findings ? Date of Service: 08/26/24 ?Follow Up: 1 Year From Orig ?? inal Mammogram ? Procedure(s): MM tomosynthesis screening BI ?? Accession Number(s): [id number] ? cc: Adal Alves MD ? EXAMINATION: [...] by Shavonne Corley, DO in OV> ? 09/04/248 ? DD/ 1440 ? TD/TT: 08/26/24 1450 ? Putty Maker: ? Procedure Note Rosaura, Image - 09/04/20[facility] [address] [place] [address] Mammography Report Signed Patient: Nisa HallMR#: [id number] : 1975Acct:[id number] Age/Sex: 48 / FADM Date: 08/26/24 Loc: HO.MAMMO Attending Dr: Adal Alves MD Ordering Physician: Adal Alvesesu lts: 2Benign Findings Date of Service: 08/26/24Follow Up: 1 Year From Orig inal Mammogram Procedure(s): MM tomosynthesis screening BI Accession Number(s): [id number] cc: Adal Alves MD EXAMINATION: MM SCREENING [...] by Shavonne Corley DO in OV> 09/04/24 191 DD/ 1440 TD/TT: 08/26/24 1450 Putty Maker: us Adal Mccarthy MD IMG BI PROCEDURES Reji ebenezer Result - Final * HEPATITIS C AB W/REFL TO HCV RNA, QN, PCR (02/05/2022 10:03 AM EDT) HEPATITIS C ANTIBODY NON-REACT HENRIQUE NON-REACT HENRIQUE [facility] INDEX 0.03 <1.00 [facility] Comment: ?? HCV antibody was non-reactive. There is no laboratory ?? evidence of HCV infection. ?? In most cases, no further action is required. However, if recent HCV exposure is suspected, a test for HCV RNA (test code 65789) is suggested. ?? For additional information please refer to http://education.Dibsie/faq/ESR44q4 (This link is being provided for informational/ educational purposes only.) ?? 02/05/2022 10:0 3 AM EDT us Adal Mccarthy MD HISTORICAL/NON ORDERA BLE LABS Final Result Performing Organization Address [facility] Co de Phone Number [facility] [address] * HIV 1/2 ANTIGEN/ANTIBODY,FOURTH GENERATION W/RFL (02/05/2022 9:38 AM EDT) Pathologist [facility] HIV-1/2 ANTIGEN AND ANTIBODIES, 4TH GENERATION W/ REFLEX TNP [facility] Comment: TEST NOT PERFORMED ?? No serum received. 02/05/2022 9:38 AM EDT us Adal Mccarthy MD LAB BLOOD ORDERABLES Final Result Performing Organization Address [facility] de Phone Number [facility] [address] * HPV mRNA E6/E7 (06/04/2018 12:00 AM EST) HPV mRNA E6/E7 Not Detected NOT DETECTED [facility] Comment: This test was performed using the APTIMA(R) HPV Assay ([employer] This assay detects E6/E7 viral messenger RNA (mRNA) from 14 high-risk HPV types (16,18,31,33,35,39,45,51, 52,56,58,59,66,68). For additional information please refer to: http://education.WellRight.Style Jukebox/faq/DDB600v3 (This link is being provided for informational/ educational purposes only.) The analytical performance characteristics of this assay have been determined by [employer] [place], [place]. The modifications have not been cleared or approved by the FDA. This assay has been validated pursuant to the CLIA regulations and is used for clinical purposes. Test Performed by [employer] [facility], [employer] [facility], [address] [place] [address] Marcos Brasher M.D., Ph.D., Director of Laboratories , CLIA [id number] Please note: ??Effective 04/08/2016, HPV testing will be performed using [employer]'s APTIMA test which targets mRNA. Detecting mRNA instead of DNA, as in older methods, offers significant improvements in specificity. 06/04/2018 Lisa Goldstein CNM HISTORICAL/NON ORDERABLE LABS Final Result [facility] Center Anywhere [address] from Last 3 Months or Most Recently Relevant to Health Maintenance Insurance [facility] C3 Care Teams Traffic Police Officer Relationship Specialty Start Date End Date Adal Terrell MD [address] [place] [id number] PCP - General Internal Medicine 03/08/14
--- OUTSIDE RECORDS SUMMARY | 2024-12-03 07:57 | XMS_ITS | Encounter Summary ---
Author Organization [employer] Address [address] [facility] [address] [address] [place] [address] Care Team Providers Care Audio Production Manager Name Role Phone Adal Terrell MD Primary Care Provide r Reason for Visit * Reason Onset Date Comments Letter for School/Work 12/12/2023 Appointment Request 12/12/2023 Encounter Details Date Type Department Care Team ([facility] Contact Info) Description 12/12/[address] [facility] MED[facility] [address] [place] [address] Adal Terrell MD [address] [place] [address] Letter for School/Work; Appointment Request Social History [...] Description 12/14/2024 1:15 PM EDT Office Visit [facility] [address] [place] [address] Adal Terrell MD [address] [place] [address] 02/24/2025 1:30 PM EDT Clinical Support [facility] [address] [place] [address] Marci Kennedy, YANET [address] [place] [address] documented as of this encounter Visit Diagnoses Not on filedocumented in this encounter Additional Health Concerns Assessment Noted Time PHQ-9 Depression Total Score: 0 09/10/19 23 11:00 AM EST documented as of this encounter Care Teams Audio Production Manager Relationship Specialty Start Date End Date Adal Terrell MD [address] [place] [address] PCP - General Internal Medicine 03/08/14 documented as of this encounter
--- NOTE | 2024-12-03 08:04 | PC.NURSE ---
Provider in to eval pt. Pt with right flank pain on palpation. C/o Nausea. Obtaining U/A, C&S as ordered.
[2024-12-03 08:22] LABS: Appearance Urine Clear; Color Urine Yellow; Glucose Urine UA Negative (Negative); Leukocyte Esterase Urine Small (1+) (Negative); Nitrite Urine Negative (Negative); PH 5.5 (5.0-9.0); UMIC TRIGGER UACC YES; Urine Blood Negative (Negative); Urine Ketones Trace mg/dL (Negative); Urine Protein Negative (Neg-Trace)
[2024-12-03] MEDS: Ondansetron ODT 4 MG TAB.RAPDIS TRANSLINGU (08:24)
[2024-12-03 08:32] LABS: Bacteria Urine None Seen (None Seen); Hyaline Casts Urine 0-2 /LPF (0-2); RBC Urine 0-2 /HPF (0-2); UACC Culture Trigger YES; WBC Urine 0-5 /HPF (0-5)
[2024-12-03 08:36] VITALS: BP 146/72; PULSE 67; RESP 13; TEMP 36.7
[2024-12-03 08:38] LABS: MANUAL DIFF FLAG NO
[2024-12-03 08:40] LABS: Basophils Absolute Auto 0.1 X10*3/uL (0.0-0.2); Basophils Percent Auto 0.7 % (0-2); Eosinophils Absolute Auto 0.2 X10*3/uL (0.0-0.4); Eosinophils Percent Auto 2.2 % (0-4); Hematocrit 37.9 % (37.0-47.0); Hemoglobin 12.8 g/dl (12.0-16.0); Imm Gran Abs Auto 0.05 X10*3/uL (0.00-0.03); Imm Gran Pct Auto 0.5 % (0.0-0.4); Lymphocytes Absolute Auto 2.5 X10*3/uL (1.2-4.9); Lymphocytes Percent Auto 22.7 % (20-40); Mean Corpuscular HGB Conc 33.8 g/dl (31.0-35.0); Mean Corpuscular Hemoglobin 28.2 pg (27.0-33.0); Mean Corpuscular Volume 83.5 fL (80.0-98.0); Mean Platelet Volume 9.2 fL (9.4-12.3); Monocytes Absolute Auto 0.7 X10*3/uL (0.1-1.2); Monocytes Percent Auto 6.5 % (2-11); Neutrophils Absolute Auto 7.5 x10*3/uL (2.0-8.3); Neutrophils Percent Auto 67.4 % (45-73); Platelet Count 322 X10*3/uL (160-400); Red Blood Count 4.54 X10*6/uL (4.20-5.50); Red Cell Distribution Width 14.6 % (11.0-16.0); White Blood Count 11.1 X10*3/uL (4.8-10.8)
[2024-12-03 08:55] LABS: Alanine Aminotransferase 41 U/L (0-31); Albumin Level 3.8 g/dL (3.5-5.0); Alkaline Phosphatase 76 U/L (39-117); Anion Gap 11 (12-20); Aspartate Amino Transferase 32 U/L (5-31); Bilirubin Total 0.3 mg/dL (0.0-1.0); Blood Urea Nitrogen 7 mg/dL (9-16); Carbon Dioxide 28 mmol/L (22-29); Chloride 103 mmol/L (96-108); Creatinine Clr Calc Pharmacy 95.8; Estimated Glomerular Filt Rate > 60; Glucose Random 108 mg/dL (60-115); Potassium 3.9 mmol/L (3.3-5.1); Sodium 138 mmol/L (135-145); Total Protein 6.9 g/dL (6.5-8.0)
--- NOTE | 2024-12-03 09:09 | PC.NURSE ---
Pt states Nausea is improved after med. Resting comfortably at this time.
[2024-12-03 09:21] VITALS: BP 126/50; PULSE 76; RESP 15; TEMP 36.7; O2SAT 97
[2024-12-03 09:46] VITALS: BP 120/60
[2024-12-03 10:17] VITALS: BP 120/60; PULSE 76; RESP 15; TEMP 36.7; O2SAT 97
== END 2024-12-03 10:19 | disposition home or self-care (01) ==
PROVIDERS: Physician Assistant Medical; Emergency Provider Emergency Medicine; PCP Internal Medicine
DX: N39.0 Urinary tract infection, site not specified (principal); M79.7 Fibromyalgia; G89.4 Chronic pain syndrome; Z79.899 Other long term (current) drug therapy
CPT/HCPCS: 36415; 76775; 80053; 81001; 85025; 87086; 99284

== ENCOUNTER → 2024-12-03 08:04 | Outpatient (BNV) | payer MEDICAID, SELFPAY | PROVIDERS: PCP Internal Medicine; Visit Provider Radiology Diagnostic Radiology | DX: N39.0 Urinary tract infection, site not specified (principal) | CPT/HCPCS: 76775 ==

== ENCOUNTER 2024-12-14 14:05 | Outpatient (REF) | payer MEDICAID, SELFPAY ==
[2024-12-14 15:21] LABS: Appearance Urine Clear; Color Urine Yellow; Glucose Urine UA Negative (Negative); Leukocyte Esterase Urine Negative (Negative); Nitrite Urine Negative (Negative); Urine Blood Negative (Negative); Urine Ketones Negative (Negative); Urine Protein Negative (Neg-Trace)
[2024-12-14 15:26] LABS: Bacteria Urine None Seen (None Seen); Hyaline Casts Urine 0-2 /LPF (0-2); RBC Urine 0-2 /HPF (0-2); WBC Urine 0-5 /HPF (0-5)
--- OUTSIDE RECORDS SUMMARY | 2024-12-14 15:28 | XMS_ITS | Encounter Summary ---
Author Organization [employer] Address [address] [place] [address] Care Team Providers Care Ophthalmic Surgeon Name Role Phone Adal Terrell MD Primary Care Provide r Reason for Visit * Reason Onset Date Comments Appointment Request 10/29/2022 Encounter Details Date Type Department Care Team ([facility] st Contact Info) Description 10/29/2022 Telephone [facility] [address] [place] [address] Adal Terrell MD [address] [place] [address] Appointment Request Social History Tobacco Use Types [...] only with him. Please contact pt at [phone] documented in this encounter Plan of Treatment Upcoming Encounters Date Type Department Care Team (Late st Contact Info) Description 02/24/2025 1:30 PM EDT Clinical Support [facility]EDS [address] [place] [address] Marci Kennedy, RN [address] [place] [address] 03/24/2025 2:30 PM EDT Office Visit [facility] [address] [place] [address] Adal Terrell MD [address] [place] [address] documented as of this encounter Visit Diagnoses Not on filedocumented in this encounter Additional Health Concerns Assessment Noted Time PHQ-9 Depression Total Score: 0 09/10/19 23 11:00 AM EST documented as of this encounter Care Teams Ophthalmic Surgeon Relationship Specialty Start Date End Date Adal Terrell MD [address] [place] [address] PCP - General Internal Medicine 03/08/14 documented as of this encounter
--- OUTSIDE RECORDS SUMMARY | 2024-12-14 15:28 | XMS_ITS | Encounter Summary ---
Author Organization [employer] Address [address] [facility] [address] [place] [address] Care Team Providers Care Director And Professor Name Role Phone Adal Terrell MD Primary Care Provide r Encounter Details Date Type Department Care Team ([facility] st Contact Info) Description 10/13/2024 Telephone [facility] MED[facility]INE [address] [place], [place] [phone] Adal Terrell MD [address] [place] [address] Social History Tobacco Use Types Packs/Day Years [...] Description 02/24/2025 1:30 PM EDT Clinical Support [facility] PEDS [address] [place] [address] Marci Kennedy, RN [address] [place] [address] 03/24/2025 2:30 PM EDT Office Visit [facility] [address] [place] [address] Adal Terrell MD [address] [place] [address] documented as of this encounter Visit Diagnoses Not on filedocumented in this encounter Additional Health Concerns Assessment Noted Time PHQ-9 Depression Total Score: 5 01/27/20 24 10:54 AM EDT documented as of this encounter Care Teams Director And Professor Relationship Specialty Start Date End Date Adal Terrell MD [address] [place] [address] PCP - General Internal Medicine 03/08/14 documented as of this encounter
--- OUTSIDE RECORDS SUMMARY | 2024-12-14 15:28 | XMS_ITS ---
Author Organization [employer] Address [address] [facility] 7[address] [place] [address] Care Team Providers Care Pouncer Machine Name Role Phone Adal Terrell MD Primary Care Provide r CM Complex Status:Enrolled (Active) Start date:11/29/2024 Enrollment date:11/30/2024 Enrollment reason:ADT Feed Overview ADT- [facility] ED 11/27/24 Case Team Name Relationship Phone Dee Tavarez RN(Responsible Staff) Registered Nurse [phone] Continued Care and Services Coordination
--- OUTSIDE RECORDS SUMMARY | 2024-12-14 15:28 | XMS_ITS | Encounter Summary ---
Author Organization [employer] Address [address] [address] [facility] [address] [place] [address] Care Team Providers Care Watch Crystal Molder Name Role Phone Adal Terrell MD Primary Care Provide r Reason for Visit * Reason Onset Date Comments Med Refill 11/08/2024 Encounter Details Date Type Department Care Team ([facility] st Contact Info) Description 11/08/2024 Telephone [facility] MED[facility]INE [address] [place] [address] Adal Terrell MD [address] [place] [address] Med Refill Social History Tobacco Use Types [...] immediate release tablet To be sent to: [id number] [place] [facility] [id number] [facility] documented in this encounter Plan of Treatment Upcoming Encounters Date Type Department Care Team (Late st Contact Info) Description 02/24/2025 1:30 PM EDT Clinical Support [facility] MED [facility] PEDS [address] [place] [address] Marci Kennedy RN [address] [place] [address] 03/24/2025 2:30 PM EDT Office Visit [facility] MEDICINE [address] [place] [address] Adal Terrell MD [address] [place] [address] documented as of this encounter Visit Diagnoses Not on filedocumented in this encounter Additional Health Concerns Assessment Noted Time PHQ-9 Depression Total Score: 5 01/27/20 24 10:54 AM EDT documented as of this encounter Care Teams Watch Crystal Molder Relationship Specialty Start Date End Date Adal Terrell MD [address] [place] [address] PCP - General Internal Medicine 03/08/14 documented as of this encounter
--- OUTSIDE RECORDS SUMMARY | 2024-12-14 15:28 | XMS_ITS | Encounter Summary ---
Author Organization [employer] Address [address] [facility] 7t [place] [address] Care Team Providers Care Jet Aircraft Servicer Name Role Phone Adal Terrell MD Primary Care Provide r Reason for Referral * Consultation (Routine) - Authorized Specialty Diagnoses / Procedures Referred By Contac t Referred To Contact Nutrition Diagnoses Obesity (BMI 30-39.9) Adal Terrell MD [address] [place] [address] Phone: tel: fax: Referral ID Status Reason Start Date Expiration Date Visits Requested Visits Authorized [id number] Authorized Consult and Treat 12/14/2024 12/14/2025 1 1 * Imaging (Routine) - Authorized Specialty Diagnoses / Procedures Referred By Contac t Referred To Contact Radiology Diagnoses Chronic right-sided low back pain with right-sided sciatica Procedures MR Lumbar Spine w/o Contrast Adal Terrell MD [address] [place] [address] Phone: tel: fax: [facility] [address] [place] [address] Phone: tel: fax: Referral ID Status Reason Start Date Expiration Date V isits Requested Visits Authorized [id number] Authorized 12/14/2024 12/14/2025 1 1 Reason for Visit * Reason Comments Follow-up asthma, f/u CTS. [facility] DX: Polynephritis Encounter Details Date Type Department Care Team (Latest Contact Info) Description 12/14/2024 1:15 PM EDT Office Visit [facility] MEDICINE [address] [place] [address] Adal Terrell MD [address] [place] [address] Gastroesophageal reflux disease with esophagitis without hemorrhage (Primary Dx); Lateral epicondylitis of left elbow; Irritable bowel syndrome with diarrhea; Bilateral carpal tunnel syndrome; Preventative health care; Transaminitis; Recurrent urinary tract infection; Chronic right-sided low back pain with right-sided sciatica; Fibromyalgia; Concern about STI in female without diagnosis; Obesity (BMI 30-39.9) Social History Tobacco Use Types Packs/Day Years [...] Sign Reading Time Taken Comments Blood Pressure 129/77 12/14/2024 12:57 PM EDT Pulse 87 12/14/2024 12:57 PM EDT Temperature 36.4 ??C (97.5 ??F) 12/14/2024 12:57 PM E DT Respiratory Rate 12/14/2024 12:57 PM EDT Oxygen Saturation 98% 12/14/2024 12:57 PM EDT Inhaled Oxygen Concentration - - Weight 80.3 kg (177 lb) 12/14/2024 12:57 PM EDT Height 160 cm (5' 3 ) 12/14/2024 12:57 PM EDT Body Mass Index 31.35 12/14/2024 12:57 PM EDT documented in this encounter Progress Notes * Adal Mccarthy MD - 12/14/2024 1:15 PM EDT SUBJECTIVE Nisa Hall is a 49 y.o. female who presents for Follow-up (asthma, f/u CTS. [facility] DX: Polynephritis). Patient is here for a follow up after multiple ER visits for recurrent UTIs Back Pain This is a recurrent problem. The pain is at a severity of 8/10. Pertinent negatives include no abdominal pain, chest pain, fever or headaches. Review of Systems Constitutional: Negative for fever. HENT: Negative for sore throat. Respiratory: Negative for cough and shortness of breath. Cardiovascular: Negative for chest pain. Gastrointestinal: Negative for abdominal pain. Musculoskeletal: Positive for back pain. Neurological: Negative for headaches. Allergies[1] OBJECTIVE Vitals: 12/14/24 1257 BP: 129/77 BP Location: Left arm Patient Position: Sitting BP Cuff Size: Large adult Pulse: 87 Resp: 20 Temp: 97.5 ??F (36.4 ??C) TempSrc: Temporal SpO2: 98% Weight: 177 lb (80.3 kg) Height: 5' 3 (1.6 m) Physical [...] sounds. Skin: General: Skin is warm. Neurological: Mental Status: She is alert. Mental status is at baseline. Assessment/Plan Problem List Items Addressed This Visit Gastroesophageal reflux disease with esophagitis without hemorrhage - Primary Under the care of GI who ordered a Barium Swallow that showed: barium swallow with air IMPRESSION: 1. Mild granular appearance of the esophageal mucosa, suggestive of esophagitis. 2. Very small type I hiatal hernia with significant show esophageal reflux. 3. Prominent appearance of the areae gastricae, suggestive of gastritis. Pt subsequently had an EGD [facility] 11/02/2024 Impression: 1. Inlet patch 2. Normal esophagus (biopsy) 3. R/o atrophic gastritis (biopsy) 4. Normal duodenum (biopsy) 5. Poor prep 6. 1 polyp removed 7. Internal hemorrhoids GI Recommendations: * Follow-up path results * Repeat colonoscopy within 6-12 months due to poor prep Lateral epicondylitis of left elbow [facility] PA sent patient to [facility] Irritable bowel syndrome with diarrhea Under the care of Gastroenterology, last seen 09/01/2024. She was recommended E[facility] 11/02/2024 Impression: 1. Inlet patch 2. Normal esophagus (biopsy) 3. R/o atrophic gastritis (biopsy) 4. Normal duodenum (biopsy) 5. Poor prep 6. 1 polyp removed 7. Internal hemorrhoids Recommendations: * Follow-up path results * Repeat colonoscopy within 6-12 months due to poor prep Bilateral carpal tunnel syndrome 11/16/2024 EMG 10/12/2024 showed: IMPRESSION: 1. Mild bilateral median neuropathy across carpal tunnel. 2. Mild left ulnar neuropathy across cubital tunnel. Cock up wrist splints prescribed Preventative health care Mammogram: 08/26/2024 Normal Pap Smear: Pt had a partial Hysterectomy she still has a cervix, Pap 05/2018 was Normal. Referred for a repeat previously Colonoscopy: 2019 at [facility], repeat [facility] 11/02/2024 Impression: 5. Poor prep 6. 1 polyp removed 7. Internal hemorrhoids GI Recommendations:?? * Follow-up path results * Repeat colonoscopy within 6-12 months due to poor prep Transaminitis Recurrent urinary tract infection Pt with chronic c/o recurrent UTIs, Evaluated by Urology in the past Pt was seen by ID specialist Dr Paula Brito She is on Macrobid 100 mg po daily Corporate Secretary recommended she be seen by Urogynecology Amy Franco Chronic low back pain Pt here with c/o acute on chronic right sided low back pain Last MRI of her Lumbar spine done 05/18/2021 showed: 1. Mild degenerative disc disease at L5-S1 with a mild broad-based disc bulge and posterior annular fissuring. Bilateral facet arthropathy. No significant central canal or neural foraminal stenosis. 2. Minimal left subarticular disc bulge at L4-L5 with bilateral facet arthropathy. No significant central canal or neural foraminal stenosis. Pt is on Oxycodone BID PRN. She cannot take NSAIDS or Tylenol. Uses Tizanidine 2 mg po q 6-8 hrs prn with good results Plan: Will repeat MRI LS spine Relevant Orders MR Lumbar Spine w/o Contrast Fibromyalgia Other Visit Diagnoses Concern about STI in female without diagnosis Relevant Orders Chlamydia/N. Gonorrhoeae RNA, TMA, Urine Hepatitis B Core Antibody, Total Hepatitis B surface antigen, EIA Hepatitis C Antibody with Reflex to HCV, RNA, Quantitative, Real-Time PCR HIV-1/2 Antigen and Antibodies, Fourth Generation, with Reflexes Syphilis Screen Urinalysis, Complete, with Reflex to Culture Obesity (BMI 30-39.9) Relevant Orders Referral to Nutrition Therapy Future Appointments Date Time Provider Department Center 02/24/2025 1:30 PM Marci Kennedy RN [facility] MED [facility] 03/24/2025 2:30 PM Adal Mccarthy MD MEDICINE [facility] [1] Allergies Allergen Reactions Amitriptyline Unknown Cortisone Escitalopram Unknown Levofloxacin Unknown Morphine Unknown Nsaids Sertraline Unknown Sulfamethoxazole Unknown Topiramate Unknown Trimethoprim Unknown documented in this encounter Miscellaneous Notes * Assessment & Plan Note - Adal Mccarthy MD - 12/14/2024 1:16 PM EDT Associated Problem(s): Chronic low back pain Pt here with c/o acute on chronic right sided low back pain Last MRI of her Lumbar spine done 05/18/2021 showed: 1. Mild degenerative disc disease at L5-S1 with a mild broad-based disc bulge and posterior annular fissuring. Bilateral facet arthropathy. No significant central canal or neural foraminal stenosis. 2. Minimal left subarticular disc bulge at L4-L5 with bilateral facet arthropathy. No significant central canal or neural foraminal stenosis. Pt is on Oxycodone BID PRN. She cannot take NSAIDS or Tylenol. Uses Tizanidine 2 mg po q 6-8 hrs prn with good results Plan: Will repeat MRI LS spine * Addendum Note - Adal Mccarthy MD - 12/14/2024 1:15 PM EDTAddended by: ADAL RAMON on: 12/14/2024 01:55 PM Modules accepted: Orders * Assessment & Plan Note - Adal Mccarthy MD - 12/14/2024 1:09 PM EDT Associated Problem(s): Recurrent urinary tract infection Pt with chronic c/o recurrent UTIs, Evaluated by Urology in the past Pt was seen by ID specialist Dr Paula Brito She is on Macrobid 100 mg po daily Corporate Secretary recommended she be seen by Urogynecology Amy Franco * Assessment & Plan Note - Adal Mccarthy MD - 12/14/2024 1:08 PM EDT Associated Problem(s): Preventative health care Mammogram: 08/26/2024 Normal Pap Smear: Pt had a partial Hysterectomy she still has a cervix, Pap 05/2018 was Normal. Referred for a repeat previously Colonoscopy: 2019 at [facility], repeat [facility] 11/02/2024 Impression: 5. Poor prep 6. 1 polyp removed 7. Internal hemorrhoids GI Recommendations:?? * Follow-up path results * Repeat colonoscopy within 6-12 months due to poor prep * Assessment & Plan Note - Adal Mccarthy MD - 12/14/2024 1:06 PM EDT Associated Problem(s): Bilateral carpal tunnel syndrome 11/16/2024 EMG 10/12/2024 showed: IMPRESSION: 1. Mild bilateral median neuropathy across carpal tunnel. 2. Mild left ulnar neuropathy across cubital tunnel. Cock up wrist splints prescribed * Assessment & Plan Note - Adal Mccarthy MD - 12/14/2024 1:05 PM EDT Associated Problem(s): Irritable bowel syndrome with diarrhea Under the care of Gastroenterology, last seen 09/01/2024. She was recommended [facility]GD[facility] EGD/[facility] 11/02/2024 Impression: 1. Inlet patch 2. Normal esophagus (biopsy) 3. R/o atrophic gastritis (biopsy) 4. Normal duodenum (biopsy) 5. Poor prep 6. 1 polyp removed 7. Internal hemorrhoids Recommendations: * Follow-up path results * Repeat colonoscopy within 6-12 months due to poor prep * Assessment & Plan Note - Adal Mccarthy MD - 12/14/2024 1:04 PM EDT Associated Problem(s): Lateral epicondylitis of left elbow Spine [facility]tr PA sent patient to Ortho * Assessment & Plan Note - Adal Mccarthy MD - 12/14/2024 1:02 PM EDT Associated Problem(s): Gastroesophageal reflux disease with esophagitis without hemorrhage Under the care of GI who ordered a Barium Swallow that showed: barium swallow with air IMPRESSION: 1. Mild granular appearance of the esophageal mucosa, suggestive of esophagitis. 2. Very small type I hiatal hernia with significant show esophageal reflux. 3. Prominent appearance of the areae gastricae, suggestive of gastritis. Pt subsequently had an EGD [facility] 11/02/2024 Impression: 1. Inlet patch 2. Normal esophagus (biopsy) 3. R/o atrophic gastritis (biopsy) 4. Normal duodenum (biopsy) 5. Poor prep 6. 1 polyp removed 7. Internal hemorrhoids GI Recommendations: * Follow-up path results * Repeat colonoscopy within 6-12 months due to poor prep documented in this encounter Plan of Treatment Upcoming Encounters Date Type Department Care Team (Late st Contact Info) Description 02/24/2025 1:30 PM EDT Clinical Support [facility] MED & PEDS [address] [place] [address] Marci Kennedy, YANET [address] [place] [address] 03/24/2025 2:30 PM EDT Office Visit [facility] MEDICINE [address] [place] [address] Adal Terrell MD [address] [place] [address] Scheduled Orders Name Type Priority Associated Diagnoses Orde r Schedule MR Lumbar Spine w/o Contrast Imaging Routine Chronic right-sided low back pain with right-sided sciatica Ordered: 12/14/2024 Chlamydia/N. Gonorrhoeae RNA, TMA, Urine Microbiology Routine Concern about STI in female without diagnosis Expected: 12/14/2024 (Approximate), Expires: 12/14/2025 Hepatitis B Core Antibody, Total Lab Routine Concern about STI in female without diagnosis Expected: 12/14/2024 (Approximate), Expires: 12/14/2025 Hepatitis B surface antigen, EIA Lab Routine Concern about STI in female without diagnosis Expected: 12/14/2024 (Approximate), Expires: 12/14/2025 Hepatitis C Antibody with Reflex to HCV, RNA, Quantitative, Real-Time PCR Lab Routine Concern about STI in female without diagnosis Expected: 12/14/2024 (Approximate), Expires: 12/14/2025 HIV-1/2 Antigen and Antibodies, Fourth Generation, with Reflexes Lab Routine Concern about STI in female without diagnosis Expected: 12/14/2024 (Approximate), Expires: 12/14/2025 Syphilis Screen Lab Routine Concern about STI in female without diagnosis Expected: 12/14/2024 (Approximate), Expires: 12/14/2025 Urinalysis, Complete, with Reflex to Culture Lab Routine Concern about STI in female without diagnosis Expected: 12/14/2024 (Approximate), Expires: 12/14/2025 Scheduled Referrals Name Type Priority Associated Diagnoses Orde r Schedule Referral to Nutrition Therapy Outpatient Referral Routine Obesity (BMI 30-39.9) Expected: 12/14/2024 (Approximate), Expires: 12/14/2025 documented as of this encounter Visit Diagnoses Diagnosis Gastroesophageal reflux disease with esophagitis without hemorrhage- Primary Lateral epicondylitis of left elbow Irritable bowel syndrome with diarrhea Irritable bowel syndrome Bilateral carpal tunnel syndrome Carpal tunnel syndrome Preventative health care Routine general medical examination at a health care facility Transaminitis Nonspecific elevation of levels of transaminase or lactic acid dehydrogenase (LDH) Recurrent urinary tract infection Urinary tract infection, site not specified Chronic right-sided low back pain with right-sided sciatica Fibromyalgia Unspecified myalgia and myositis Concern about STI in female without diagnosis Obesity (BMI 30-39.9) documented in this encounter Additional Health Concerns Assessment Noted Time PHQ-9 Depression Total Score: 0 12/01/19 25 10:42 AM EDT documented as of this encounter Care Teams Jet Aircraft Servicer Relationship Specialty Start Date End Date Adal Terrell MD [address] [place] [address] PCP - General Internal Medicine 03/08/14 documented as of this encounter
--- OUTSIDE RECORDS SUMMARY | 2024-12-14 15:28 | XMS_ITS | Encounter Summary ---
Author Organization [employer] Address [address] [facility] [address] [place] [id number] Care Team Providers Care Dispenser Operator Name Role Phone Adal Terrell MD Primary Care Provide r Reason for Visit * Reason Onset Date Comments Letter for School/Work 12/12/2023 Appointment Request 12/12/2023 Encounter Details Date Type Department Care Team ([facility] st Contact Info) Description 12/12/2023 Telephone [facility] MEDICINE [address] [place] [address] Adal Terrell MD [address] [place] [address] Letter for School/Work; Appointment Request Social History [...] Description 02/24/2025 1:30 PM EDT Clinical Support [facility] MED & PEDS [address] [place] [address] Marci Kennedy RN [address] [place] [address] 03/24/2025 2:30 PM EDT Office Visit [facility] MEDICINE [address] [place] [address] Adal Terrell MD [address] [place] [address] documented as of this encounter Visit Diagnoses Not on filedocumented in this encounter Additional Health Concerns Assessment Noted Time PHQ-9 Depression Total Score: 0 09/10/19 23 11:00 AM EST documented as of this encounter Care Teams Dispenser Operator Relationship Specialty Start Date End Date Adal Terrell MD [address] [place] [address] PCP - General Internal Medicine 03/08/14 documented as of this encounter
--- OUTSIDE RECORDS SUMMARY | 2024-12-14 15:28 | XMS_ITS | Encounter Summary ---
Author Organization [employer] Address [address] [facility] [address] [place] [address] Care Team Providers Care Ophthalmologist Name Role Phone Adal Terrell MD Primary Care Provide r Encounter Details Date Type Department Care Team (Latest Contact Info) Description 12/14/2024 Travel Social History Tobacco Use Types Packs/Day [...] Description 02/24/2025 1:30 PM EDT Clinical Support [facility] MED & PEDS [address] [place] [address] Marci Kennedy, YANET [address] [place] [address] 03/24/2025 2:30 PM EDT Office Visit [facility] MEDICINE [address] [place] [address] Adal Terrell MD [address] [place] [address] documented as of this encounter Visit Diagnoses Not on filedocumented in this encounter Additional Health Concerns Assessment Noted Time PHQ-9 Depression Total Score: 0 12/01/19 25 10:42 AM EDT documented as of this encounter Care Teams Ophthalmologist Relationship Specialty Start Date End Date Adal Terrell MD [address] [place] [address] PCP - General Internal Medicine 03/08/14 documented as of this encounter
--- OUTSIDE RECORDS SUMMARY | 2024-12-14 15:28 | XMS_ITS | Encounter Summary ---
Author Organization [employer] Address [address] [facility] [address] [address] [place] [address] Care Team Providers Care Vocational Education Teacher Name Role Phone Adal Terrell MD Primary Care Provide r Reason for Visit * Reason Comments Care Coordination C3CM f/u call Encounter Details Date Type Department Care Team (Latest Contact Info) Description 12/13/2024 Patient Outreach [facility] CH[facility] MED & PEDS [address] [place] [address] Adal Terrell MD [address] [place] [address] Care Coordination (C3CM f/u call) Social History Tobacco Use Types Packs/Day Years [...] Progress Notes * Dee Tavarez RN - 12/13/2024 2:45 PM EDT AKILAH Tavarez RN placed outbound call to patient. Patient's name, and address confirmed. Patient states is doing well with no recent illnesses or emergency room visits. CM reminded pt of her upcoming appt with PCP and advised pt to request for notcher referral and to write down all herconcerns and discuss with the provider. Pt reports compliance with all her medications but c/o constipation with one of her medication. Pt states she has an upcoming appt with the GI specialist who is the prescriber and will discuss further with her. No further questions or concerns. CM reinforced direct contact information or CHW for any additional questions or concerns. Education provided on [facility] located in [facility] of [facility]. Patient provided with after-hours line for [facility], , which offer nighttime triage service and option to transfer to site operations manager provider if needed. Patient verbalizes understanding, and able to repeat back to justowriter operator. A follow up call will be placed within 10 days, patient agrees with plan. documented in this encounter Plan of Treatment Upcoming Encounters Date Type Department Care Team (Late st Contact Info) Description 02/24/2025 1:30 PM EDT Clinical Support [facility] MED & PEDS [address] [place] [address] Marci Kennedy, RN [address] [place] [address] 03/24/2025 2:30 PM EDT Office Visit [facility] MEDICINE [address] [place] [address] Adal Terrell MD [address] [place] [address] documented as of this encounter Visit Diagnoses Not on filedocumented in this encounter Additional Health Concerns Assessment Noted Time PHQ-9 Depression Total Score: 0 12/01/19 25 10:42 AM EDT documented as of this encounter Care Teams Vocational Education Teacher Relationship Specialty Start Date End Date Adal Terrell MD [address] [place] [address] PCP - General Internal Medicine 03/08/14 documented as of this encounter
--- OUTSIDE RECORDS SUMMARY | 2024-12-14 15:28 | XMS_ITS | Encounter Summary ---
Author Organization [employer] Address [address] [facility] [address] [place] [address] Care Team Providers Care Ict Trainer Name Role Phone Adal Terrell MD Primary Care Provide r Reason for Visit * Reason Onset Date Comments Appointment Request 03/19/2023 Encounter Details Date Type Department Care Team ([facility] st Contact Info) Description 03/19/2023 Telephone [facility] MEDICINE [address] [place] [address] Adal Terrell MD [address] [place] [address] Appointment Request Social History Tobacco Use Types [...] * Telephone Encounter - Liam Reyes - 03/19/2023 9:53 AM EDT Tc from pt requesting to r/s PEDIATRIC SURGEON visit on 03/21/2023 @ 11:30 am. Pt states due to an emergency she has to fly out to [place] and won't be back in two weeks. Please contact pt at [phone] documented in this encounter Plan of Treatment Upcoming Encounters Date Type Department Care Team ([facility] st Contact Info) Description 02/24/2025 1:30 PM EDT Clinical Support [facility] CHC MED & PEDS [address] [place] [address] Marci Kennedy, RN [address] [place] [address] 03/24/2025 2:30 PM EDT Office Visit [facility] MEDICINE [address] [place] [address] Adal Terrell MD [address] [place] [address] documented as of this encounter Visit Diagnoses Not on filedocumented in this encounter Additional Health Concerns Assessment Noted Time PHQ-9 Depression Total Score: 0 09/10/19 23 11:00 AM EST documented as of this encounter Care Teams Ict Trainer Relationship Specialty Start Date End Date Adal Terrell MD [address] [place] [address] PCP - General Internal Medicine 03/08/14 documented as of this encounter
--- OUTSIDE RECORDS SUMMARY | 2024-12-14 15:28 | XMS_ITS | Encounter Summary ---
Author Organization [employer] Address [address] [facility] [address] [place] [address] Care Team Providers Care Senior Chemical Process Engineer Name Role Phone Adal Terrell MD Primary Care Provide r Reason for Visit * Reason Onset Date Comments Nurse Triage 03/05/2024 Encounter Details Date Type Department Care Team ([facility] st Contact Info) Description 03/05/2024 Telephone [facility] MEDICINE [address] [place] [address] Adal Terrell MD [address] [place] [address] Nurse Triage Social History Tobacco Use Types [...] Description 02/24/2025 1:30 PM EDT Clinical Support [facility] CHC MED & PEDS [address] [place] [address] Marci Kennedy, RN [address] [place] [address] 03/24/2025 2:30 PM EDT Office Visit [facility] MEDICINE [address] [place] [address] Adal Terrell MD [address] [place] [address] documented as of this encounter Visit Diagnoses Not on filedocumented in this encounter Additional Health Concerns Assessment Noted Time PHQ-9 Depression Total Score: 5 01/27/20 24 10:54 AM EDT documented as of this encounter Care Teams Senior Chemical Process Engineer Relationship Specialty Start Date End Date Adal Terrell MD [address] [place] [address] PCP - General Internal Medicine 03/08/14 documented as of this encounter
--- OUTSIDE RECORDS SUMMARY | 2024-12-14 15:28 | XMS_ITS | Encounter Summary ---
Author Organization [employer] Address [address] [facility] [address] 7t [place] [address] Care Team Providers Care Sterilizer Operator Name Role Phone Adal Terrell MD Primary Care Provide r Reason for Visit * Reason Onset Date Comments Chart Prep 12/13/2024 Encounter Details Date Type Department Care Team ([facility] Contact Info) Description 12/13/[address] [facility] [address] [place] [address] Adal Terrell MD 230 [place] [address] Chart Prep Social History Tobacco Use Types [...] Telephone Encounter - Britney Arzate [place] - 12/13/2024 2:31 PM EDT Chart Prep Labs: done Images: done Vaccines due: Covid Due, Hep A Due, Hep B Due, PCV20 Due, and Flu Due Referrals: OBGYN contacted the office but had to [facility], sent fax request for notes in case pt kept anappt., Physical Therapy Requested notes by Fax. Waiting for notes., Radiology NCS completed, and Occupational Therapy is the same referral to [facility], requested notes. Screenings: PAP Overdue care gaps: Disability Chart prep for upcoming appt with Dr.Esparza lion. LB documented in this encounter Plan of Treatment Upcoming Encounters Date Type Department Care Team (Late st Contact Info) Description 02/24/2025 1:30 PM EDT Clinical Support [facility] MED & PEDS [address] [place] [address] Marci Kennedy, YANET [address] [place] [address] 03/24/2025 2:30 PM EDT Office Visit [facility] [address] [place] [address] Adal Terrell MD [address] [place] [address] documented as of this encounter Visit Diagnoses Not on filedocumented in this encounter Additional Health Concerns Assessment Noted Time PHQ-9 Depression Total Score: 0 12/01/19 25 10:42 AM EDT documented as of this encounter Care Teams Sterilizer Operator Relationship Specialty Start Date End Date Adal Terrell MD 230 [place] [address] PCP - General Internal Medicine 03/08/14 documented as of this encounter
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
--- OUTSIDE RECORDS SUMMARY | 2024-12-14 15:28 | XMS_ITS | Encounter Summary ---
Author Organization [employer] Address [address] h Floor [place] [id number] Care Team Providers Care Chief Embalmer Name Role Phone Adal Terrell MD Primary Care Provide r Reason for Visit * Reason Onset Date Comments Results 08/13/2023 Encounter Details Date Type Department Care Team ([facility] Contact Info) Description 08/13/2023 Telephone [facility] MEDICINE 230 [place] [address] Adal Terrell MD 230 [place] [address] Results Social History Tobacco Use Types Packs/Day [...] * Telephone Encounter - Fiorella Shant - 08/13/2023 11:27 AM EST TC from pt requesting call back regarding Results. Pt is requesting to only speak with PCP. Type of results: MRI cervical spine Date when done: 08/08 Facility: [facility] documented in this encounter Plan of Treatment Upcoming Encounters Date Type Department Care Team (Late st Contact Info) Description 02/24/2025 1:30 PM EDT Clinical Support [facility] MED & PEDS [address] [place] [address] Marci Kennedy, YANET 505 [place] [address] 03/24/2025 2:30 PM EDT Office Visit [facility] MEDICINE 230 [place] [address] Adal Terrell MD [address] [place] [address] documented as of this encounter Visit Diagnoses Not on filedocumented in this encounter Additional Health Concerns Assessment Noted Time PHQ-9 Depression Total Score: 0 09/10/19 23 11:00 AM EST documented as of this encounter Care Teams Chief Embalmer Relationship Specialty Start Date End Date Adal Terrell MD 230 [place] [address] PCP - General Internal Medicine 03/08/14 documented as of this encounter
--- OUTSIDE RECORDS SUMMARY | 2024-12-14 15:28 | XMS_ITS | Encounter Summary ---
Author Organization [employer] Address [address] [facility] [address] 7t h Floor [place] [id number] Care Team Providers Care Fashion Buyer Name Role Phone Adal Terrell MD Primary Care Provide r Encounter Details Date Type Department Care Team ([facility] st Contact Info) Description 12/14/2024 Patient Outreach [facility] MEDICINE 230 [place] [address] Adal Terrell MD 230 [place] [address] Social History Tobacco Use Types Packs/Day Years [...] encounter Progress Notes * Satish Bran - 12/14/2024 1:49 PM EDT SDOH completed on 11/29/24. documented in this encounter Plan of Treatment Upcoming Encounters Date Type Department Care Team (Late st Contact Info) Description 02/24/2025 1:30 PM EDT Clinical Support [facility] CH[facility] MED & PEDS 505 [place] [address] Marci Kennedy, RN 505 [place] [address] 03/24/2025 2:30 PM EDT Office Visit [facility] MEDICINE 230 [place] [address] Adal Terrell MD 230 [place] [address] documented as of this encounter Visit Diagnoses Not on filedocumented in this encounter Additional Health Concerns Assessment Noted Time PHQ-9 Depression Total Score: 0 12/01/19 10:42 AM EDT documented as of this encounter Care Teams Fashion Buyer Relationship Specialty Start Date End Date Adal Terrell MD [address] [place] [address] PCP - General Internal Medicine 03/08/14 documented as of this encounter
--- OUTSIDE RECORDS SUMMARY | 2024-12-14 15:28 | XMS_ITS | Encounter Summary ---
Author Organization [employer] Address [address] [facility] [facility] [address] 7t [place] [address] Care Team Providers Care Field Crop Grower Name Role Phone Adal Terrell MD Primary Care Provide r Reason for Visit * Reason Onset Date Comments Med Refill 02/09/2024 Encounter Details Date Type Department Care Team ([facility] st Contact Info) Description 02/09/2024 Telephone [facility] MEDICINE 230 [place] [address] Adal Terrell MD 230 [place] [address] Med Refill Social History Tobacco Use Types [...] immediate release tablet To be sent to: [id number] - [place], [place] - [address] [facility] documented in this encounter Plan of Treatment Upcoming Encounters Date Type Department Care Team (Late st Contact Info) Description 02/24/2025 1:30 PM EDT Clinical Support [facility] CH[facility] MED & PEDS 505 [place] [address] Marci Kennedy RN 505 [place] [address] 03/24/2025 2:30 PM EDT Office Visit [facility] MEDICINE 230 [place] [address] Adal Terrell MD 230 [place] [address] documented as of this encounter Visit Diagnoses Not on filedocumented in this encounter Additional Health Concerns Assessment Noted Time PHQ-9 Depression Total Score: 5 01/27/20 24 10:54 AM EDT documented as of this encounter Care Teams Field Crop Grower Relationship Specialty Start Date End Date Adal Terrell MD [address] [place] [address] PCP - General Internal Medicine 03/08/14 documented as of this encounter
--- OUTSIDE RECORDS SUMMARY | 2024-12-14 15:28 | XMS_ITS | Encounter Summary ---
Author Organization [employer] Address [address] [facility] 7[address] [place] [address] Care Team Providers Care Terminal Gauger Name Role Phone Adal Terrell MD Primary Care Provide r Encounter Details Date Type Department Care Team (Late st Contact Info) Description 12/10/2024 Patient Outreach [facility] CHC MED & PEDS [address] [place], [place] [phone] Adal Terrell MD 230 [place] [address] Social History Tobacco Use Types Packs/Day Years [...] Description 02/24/2025 1:30 PM EDT Clinical Support [facility] CH[facility] MED & PEDS 505 [place] [address] Marci Kennedy, RN 505 [place] [address] 03/24/2025 2:30 PM EDT Office Visit [facility] MEDICINE 230 [place] [address] Adal Terrell MD [address] [place] [address] documented as of this encounter Visit Diagnoses Not on filedocumented in this encounter Additional Health Concerns Assessment Noted Time PHQ-9 Depression Total Score: 0 12/01/19 25 10:42 AM EDT documented as of this encounter Care Teams Terminal Gauger Relationship Specialty Start Date End Date Adal Terrell MD [address] [place] [address] PCP - General Internal Medicine 03/08/14 documented as of this encounter
--- OUTSIDE RECORDS SUMMARY | 2024-12-14 15:28 | XMS_ITS | Encounter Summary ---
Author Organization [employer] Address [address] [facility] [address] 7t [place] [address] Care Team Providers Care Wildlife Veterinarian Name Role Phone Adal Terrell MD Primary Care Provide r Encounter Details Date Type Department Care Team ([facility] st Contact Info) Description 02/05/2024 Orders Only [facility] MEDICINE 230 [place] [address] Adal Terrell MD 230 [place] [address] Social History Tobacco Use Types Packs/Day Years [...] Description 02/24/2025 1:30 PM EDT Clinical Support [facility] MED & PEDS 505 [place] [address] Marci Kennedy RN 505 [place], [place] [phone] 03/24/2025 2:30 PM EDT Office Visit [facility] MEDICINE 230 [place], [place] [phone] Adal Terrell MD 230 [place], [place] [phone] documented as of this encounter Procedures Procedure [...] documented as of this encounter Care Teams Wildlife Veterinarian Relationship Specialty Start Date End Date Adal Terrell MD 230 [place], [place] [phone] PCP - General Internal Medicine 03/08/14 documented as of this encounter
--- OUTSIDE RECORDS SUMMARY | 2024-12-14 15:28 | XMS_ITS | Encounter Summary ---
Author Organization [employer] Address [address] [facility] [address] 7t h Floor [place] [phone] Care Team Providers Care Cattle Manager Name Role Phone Adal Terrell MD Primary Care Provide r Reason for Visit * Reason Comments Med Refill Encounter Details Date Type Department Care Team ([facility] st Contact Info) Description 04/05/[address] [facility] MEDICINE 230 [place] [address] Ronel Thomas, ANP 230 [place] [address] COVID-19 Social History Tobacco Use Types Packs/Day [...] Upcoming Encounters Date Type Department Care Team ([facility] st Contact Info) Description 02/24/2025 1:30 PM EDT Clinical Support [facility] CH[facility] MED & PEDS 505 [place] [address] Marci Kennedy, YANET 505 [place] [address] 03/24/2025 2:30 PM EDT Office Visit [facility] MEDICINE 230 [place] [address] Adal Terrell MD 230 [place] [address] documented as of this encounter Visit Diagnoses Diagnosis COVID-19 documented in this encounter Additional Health Concerns Assessment Noted Time PHQ-9 Depression Total Score: 5 01/27/20 24 10:54 AM EDT documented as of this encounter Care Teams Cattle Manager Relationship Specialty Start Date End Date Adal Terrell MD [address] [place] [address] PCP - General Internal Medicine 03/08/14 documented as of this encounter
--- OUTSIDE RECORDS SUMMARY | 2024-12-14 15:28 | XMS_ITS | Encounter Summary ---
Author Organization [employer] Address [address] [facility] [address] [facility] [address] [facility] [address] 7t [place] [address] Care Team Providers Care Wooden Barrel Mechanic Name Role Phone Adal Terrell MD Primary Care Provide r Reason for Visit * Reason Onset Date Comments Med Refill 10/08/2024 Encounter Details Date Type Department Care Team ([facility] st Contact Info) Description 10/08/2024 Telephone [facility] 230 [place] [address] Adal Terrell MD 230 [place] [address] Med Refill Social History Tobacco Use Types [...] immediate release tablet To be sent to: [id number] [place], [place] - [address] [facility] documented in this encounter Plan of Treatment Upcoming Encounters Date Type Department Care Team ([facility] st Contact Info) Description 02/24/2025 1:30 PM EDT Clinical Support [facility] MED & PEDS 505 [place] [address] Marci Kennedy, RN 505 [place] [address] 03/24/2025 2:30 PM EDT Office Visit [facility]INE 230 [place] [address] Adal Terrell MD 230 [place] [address] documented as of this encounter Visit Diagnoses Not on filedocumented in this encounter Additional Health Concerns Assessment Noted Time PHQ-9 Depression Total Score: 5 01/27/20 24 10:54 AM EDT documented as of this encounter Care Teams Wooden Barrel Mechanic Relationship Specialty Start Date End Date Adal Terrell MD [address] [facility] [place] [address] PCP - General Internal Medicine 03/08/14 documented as of this encounter
--- OUTSIDE RECORDS SUMMARY | 2024-12-14 15:28 | XMS_ITS | Encounter Summary ---
Author Organization [employer] Address [address] 7t [place] [address] Care Team Providers Care Welfare Case Worker Name Role Phone Adal Terrell MD Primary Care Provide r Reason for Visit * Reason Comments Med Refill Encounter Details Date Type Department Care Team ([facility] st Contact Info) Description 12/08/2024 Refill [facility] MEDICINE 230 [place], [place] [phone] Adal Terrell MD 230 [place] [address] Social History Tobacco Use Types Packs/Day Years [...] ([facility] st Contact Info) Description 02/24/2025 1:30 PM EDT Clinical Support [facility] MED & PEDS 505 [place] [address] Marci Kennedy, YANET 505 [place] [address] 03/24/2025 2:30 PM EDT Office Visit [facility] 230 [place] [address] Adal Terrell MD 230 [place] [address] documented as of this encounter Visit Diagnoses Not on filedocumented in this encounter Additional Health Concerns Assessment Noted Time PHQ-9 Depression Total Score: 0 12/01/19 25 10:42 AM EDT documented as of this encounter Care Teams Welfare Case Worker Relationship Specialty Start Date End Date Adal Terrell MD [address] [place] [address] PCP - General Internal Medicine 03/08/14 documented as of this encounter
--- OUTSIDE RECORDS SUMMARY | 2024-12-14 15:28 | XMS_ITS | Encounter Summary ---
Author Organization [employer] Address [address] 7t [place] [address] Care Team Providers Care Lean Leader Name Role Phone Adal Terrell MD Primary Care Provide r Reason for Visit * Reason Onset Date Comments Med Refill 12/08/2024 Encounter Details Date Type Department Care Team ([facility] st Contact Info) Description 12/08/2024 Refill [facility] CHC MED & PEDS 505 [place] [address] Marci Kennedy, RN 505 [place], [place] Chronic right-sided low back pain with right-sided [...] 1:30 PM EDT Clinical Support [facility] CHC MED & PEDS 505 [place] [address] Marci Kennedy, RN 505 [place] [address] 03/24/2025 2:30 PM EDT Office Visit [facility] MEDICINE 230 [place] [address] Adal Terrell MD 230 [place] [address] documented as of this encounter Visit Diagnoses Diagnosis Chronic right-sided low back pain with right-sided sciatica documented in this encounter Additional Health Concerns Assessment Noted Time PHQ-9 Depression Total Score: 0 12/01/19 25 10:42 AM EDT documented as of this encounter Care Teams Lean Leader Relationship Specialty Start Date End Date Adal Terrell MD [address] [place] [address] PCP - General Internal Medicine 03/08/14 documented as of this encounter
--- OUTSIDE RECORDS SUMMARY | 2024-12-14 15:28 | XMS_ITS | Encounter Summary ---
Author Organization [email or web address] Address [address] [facility] 7t [place] [address] Care Team Providers Care Senior Staff Psychologist Name Role Phone Adal Terrell MD Primary Care Provide r Reason for Visit * Reason Comments Care Coordination C3CM/CHW YANDEL GomezOH f/u Encounter Details Date Type Department Care Team (Latest Contact Info) Description 12/13/2024 Patient Outreach [facility] MEDICINE 230 [place] [address] Adal Terrell MD 230 [place] [address] Care Coordination ([id number]/YANDEL Treviño f/u) Social History Tobacco Use Types Packs/Day Years [...] encounter Progress Notes * Satish Bran - 12/13/2024 2:39 PM EDT CHW Satish Bran placed outbound call to patient to follow up on SDOH needs. Patient's name, and address confirmed. Patient states is doing well. No further questions or concerns. CHW reinforced direct contact information or CM for any additional questions or concerns and extended clinic hours on Mondays and Wednesdays, and Walk-In Urgent Care Located in [facility]. Patient provided with after-hours line for [facility], , which offer night time triage service and option to transfer to bone char puller provider if needed. Patient verbalizes understanding, and able to repeat back to song writer. A follow up call will be placed within 10 days, patient agrees with plan. documented in this encounter Plan of Treatment Upcoming Encounters Date Type Department Care Team ([facility] st Contact Info) Description 02/24/2025 1:30 PM EDT Clinical Support [facility] MED & PEDS 505 [place] [address] Marci Kennedy, RN 505 [place] [address] 03/24/2025 2:30 PM EDT Office Visit [facility] MEDICINE 230 [place] [address] Adal Terrell MD [address] [place] [address] documented as of this encounter Visit Diagnoses Not on filedocumented in this encounter Additional Health Concerns Assessment Noted Time PHQ-9 Depression Total Score: 0 12/01/19 25 10:42 AM EDT documented as of this encounter Care Teams Senior Staff Psychologist Relationship Specialty Start Date End Date Adal Terrell MD [address] [place] [address] PCP - General Internal Medicine 03/08/14 documented as of this encounter
--- OUTSIDE RECORDS SUMMARY | 2024-12-14 15:28 | XMS_ITS | Encounter Summary ---
Author Organization [employer] Address [address] [facility] [address] 7t [place] [address] Care Team Providers Care Die Cut Operator Name Role Phone Adal Terrell MD Primary Care Provide r Encounter Details Date Type Department Care Team ([facility] st Contact Info) Description 11/09/2024 Telephone [facility] MEDICINE [address] [place], [place] [phone] Adal Terrell MD 230 [place] [address] Social History Tobacco Use Types Packs/Day Years [...] Description 02/24/2025 1:30 PM EDT Clinical Support [facility] CHC MED & PEDS 505 [place] [address] Marci Kennedy, RN 505 [place] [address] 03/24/2025 2:30 PM EDT Office Visit [facility] MEDICINE [address] [place] [address] Adal Terrell MD 230 [place] [address] documented as of this encounter Visit Diagnoses Not on filedocumented in this encounter Additional Health Concerns Assessment Noted Time PHQ-9 Depression Total Score: 5 01/27/20 24 10:54 AM EDT documented as of this encounter Care Teams Die Cut Operator Relationship Specialty Start Date End Date Adal Terrell MD [address] [place] [address] PCP - General Internal Medicine 03/08/14 documented as of this encounter
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
--- OUTSIDE RECORDS SUMMARY | 2024-12-14 15:28 | XMS_ITS | Encounter Summary ---
Author Organization [employer] Address [address] 7t [place] [address] Care Team Providers Care Special Assemblies Supervisor Name Role Phone Adal Terrell MD Primary Care Provide r Reason for Visit * Reason Onset Date Comments Med Refill 01/02/2023 Encounter Details Date Type Department Care Team ([facility] st Contact Info) Description 01/02/2023 Telephone [facility] [address] [place] [address] Adal Terrell MD [address] [place] [address] Med Refill Social History Tobacco Use Types [...] * Telephone Encounter - Fiorella Bran - 01/02/2023 9:46 AM EDT Tc from pt requesting medication refill on oxyCODONE (Roxicodone) 5 MG immediate release tablet documented in this encounter Plan of Treatment Upcoming Encounters Date Type Department Care Team (Late st Contact Info) Description 02/24/2025 1:30 PM EDT Clinical Support [facility] [address] [place] [address] Marci Kennedy, RN [address] [place] [address] 03/24/2025 2:30 PM EDT Office Visit [facility] [address] [place] [address] Adal Terrell MD [address] [place] [address] documented as of this encounter Visit Diagnoses Not on filedocumented in this encounter Additional Health Concerns Assessment Noted Time PHQ-9 Depression Total Score: 0 09/10/19 23 11:00 AM EST documented as of this encounter Care Teams Special Assemblies Supervisor Relationship Specialty Start Date End Date Adal Terrell MD [address] [place] [address] PCP - General Internal Medicine 03/08/14 documented as of this encounter
--- OUTSIDE RECORDS SUMMARY | 2024-12-14 15:28 | XMS_ITS | Encounter Summary ---
Author Organization [employer] Address [address] 7[address] [place] [address] Care Team Providers Care Oracle Database Analyst Name Role Phone Adal Terrell MD Primary Care Provide r Reason for Visit * Reason Comments Med Refill Encounter Details Date Type Department Care Team ([facility] st Contact Info) Description 07/03/2023 Refill [facility] [address] [place], [place] [phone] Adal Terrell MD [address] [place] [address] Low vitamin D level Social History Tobacco [...] Description 02/24/2025 1:30 PM EDT Clinical Support [facility] [address] [place] [address] Marci Kennedy, RN [address] [place] [address] 03/24/2025 2:30 PM EDT Office Visit [facility] [address] [place] [address] Adal Terrell MD [address] [place] [address] documented as of this encounter Visit Diagnoses Diagnosis Low vitamin D level documented in this encounter Additional Health Concerns Assessment Noted Time PHQ-9 Depression Total Score: 0 09/10/19 23 11:00 AM EST documented as of this encounter Care Teams Oracle Database Analyst Relationship Specialty Start Date End Date Adal Terrell MD [address] [place] [address] PCP - General Internal Medicine 03/08/14 documented as of this encounter
--- OUTSIDE RECORDS SUMMARY | 2024-12-14 15:28 | XMS_ITS | Encounter Summary ---
Author Organization [employer] Address [address] [facility] 7t [place] [address] Care Team Providers Care Fish Conservationist Name Role Phone Adal Terrell MD Primary Care Provide r Reason for Visit * Reason Onset Date Comments Med Refill 11/05/2022 Encounter Details Date Type Department Care Team (Late st Contact Info) Description 11/05/2022 Telephone [facility] [address] [place] [address] Adal Terrell MD [address] [place] [address] Med Refill Social History Tobacco Use Types [...] Description 02/24/2025 1:30 PM EDT Clinical Support [facility] [address] [place] [address] Marci Kennedy, RN [address] [place] [address] 03/24/2025 2:30 PM EDT Office Visit [facility] [address] [place] [address] Adal Terrell MD [address] [place] [address] documented as of this encounter Visit Diagnoses Not on filedocumented in this encounter Additional Health Concerns Assessment Noted Time PHQ-9 Depression Total Score: 0 09/10/19 23 11:00 AM EST documented as of this encounter Care Teams Fish Conservationist Relationship Specialty Start Date End Date Adal Terrell MD [address] [place] [address] PCP - General Internal Medicine 03/08/14 documented as of this encounter
--- OUTSIDE RECORDS SUMMARY | 2024-12-14 15:28 | XMS_ITS | Encounter Summary ---
Author Organization [employer] Address [address] 7[address] [place] [address] Care Team Providers Care Sprinkling System Installer Name Role Phone Adal Terrell MD Primary Care Provide r Reason for Visit * Reason Onset Date Comments Med Refill 03/08/2024 Encounter Details Date Type Department Care Team ([facility] st Contact Info) Description 03/08/2024 Telephone [facility] [address] [place] [address] Adal Terrell MD [address] [place] [address] Med Refill Social History Tobacco Use Types [...] immediate release tablet To be sent to: [facility] documented in this encounter Plan of Treatment Upcoming Encounters Date Type Department Care Team (Late st Contact Info) Description 02/24/2025 1:30 PM EDT Clinical Support [facility] MED & PEDS [address] [place] [address] Marci Kennedy RN [address] [place] [address] 03/24/2025 2:30 PM EDT Office Visit [facility] [address] [place] [address] Adal Terrell MD [address] [place], [place] [phone] documented as of this encounter Visit Diagnoses Not on filedocumented in this encounter Additional Health Concerns Assessment Noted Time PHQ-9 Depression Total Score: 5 01/27/20 24 10:54 AM EDT documented as of this encounter Care Teams Sprinkling System Installer Relationship Specialty Start Date End Date Adal Terrell MD [address] [place] [address] PCP - General Internal Medicine 03/08/14 documented as of this encounter
--- OUTSIDE RECORDS SUMMARY | 2024-12-14 15:28 | XMS_ITS | Encounter Summary ---
Author Organization [employer] Address [address] [facility] [place] [address] Care Team Providers Care Director Of Vocational Training Name Role Phone Adal Terrell MD Primary Care Provide r Reason for Visit * Reason Onset Date Comments Referral 12/14/2024 Encounter Details Date Type Department Care Team ([facility] st Contact Info) Description 12/14/2024 Telephone [facility] [address] [place] [address] Adal Terrell MD [address] [place] [address] Referral Social History Tobacco Use Types Packs/Day Years [...] Telephone Encounter - Britney Arzate [place] - 12/14/2024 1:08 PM EDT Tried contacting OBGYN again in hopes of making pt an appt but had to [facility] again asking to return the call including my direct ext [phone]. LB documented in this encounter Plan of Treatment Upcoming Encounters Date Type Department Care Team (Late st Contact Info) Description 02/24/2025 1:30 PM EDT Clinical Support [facility] [address] [place] [address] Marci Kennedy RN [address] [place] [address] 03/24/2025 2:30 PM EDT Office Visit [facility] [address] [place] [address] Adal Terrell MD [address] [place] [address] documented as of this encounter Visit Diagnoses Not on filedocumented in this encounter Additional Health Concerns Assessment Noted Time PHQ-9 Depression Total Score: 0 12/01/19 25 10:42 AM EDT documented as of this encounter Care Teams Director Of Vocational Training Relationship Specialty Start Date End Date Adal Terrell MD [address] [place] [address] PCP - General Internal Medicine 03/08/14 documented as of this encounter
--- OUTSIDE RECORDS SUMMARY | 2024-12-14 15:28 | XMS_ITS | Encounter Summary ---
Author Organization [employer] Address [address] [place] [address] Care Team Providers Care Rotary Cutter Operator Name Role Phone Adal Terrell MD Primary Care Provide r Reason for Visit * Reason Comments Med Refill Encounter Details Date Type Department Care Team ([facility] st Contact Info) Description 07/23/2023 Refill [facility] [address] [place], [place] [phone] Adal Terrell MD [address] [place] [address] Chronic right-sided low back pain with right-sided [...] Description 02/24/2025 1:30 PM EDT Clinical Support [facility] MED & PED[facility] [address] [place] [address] Marci Kennedy RN [address] [place] [address] 03/24/2025 2:30 PM EDT Office Visit [facility] [address] [place] [address] Adal Terrell MD [address] [place] [address] documented as of this encounter Visit Diagnoses Diagnosis Chronic right-sided low back pain with right-sided sciatica Sacroiliac joint dysfunction Nonallopathic lesion of sacral region, not elsewhere classified documented in this encounter Additional Health Concerns Assessment Noted Time PHQ-9 Depression Total Score: 0 09/10/19 23 11:00 AM EST documented as of this encounter Care Teams Rotary Cutter Operator Relationship Specialty Start Date End Date Adal Terrell MD [address] [place] [address] PCP - General Internal Medicine 03/08/14 documented as of this encounter
--- OUTSIDE RECORDS SUMMARY | 2024-12-14 15:28 | XMS_ITS | Encounter Summary ---
Author Organization [employer] Address [address] [place] [address] Care Team Providers Care Briefcase Sewer Name Role Phone Adal Terrell MD Primary Care Provide r Encounter Details Date Type Department Care Team ([facility] st Contact Info) Description 11/09/2024 Telephone [facility] [address] [place], [place] [phone] Adal Terrell MD [address] [place] [address] Social History Tobacco Use Types Packs/Day Years [...] Description 02/24/2025 1:30 PM EDT Clinical Support [facility] [address] [place] [address] Marci Kennedy, RN [address] [place] [address] 03/24/2025 2:30 PM EDT Office Visit [facility] [address] [place] [address] Adal Terrell MD [address] [place] [address] documented as of this encounter Visit Diagnoses Not on filedocumented in this encounter Additional Health Concerns Assessment Noted Time PHQ-9 Depression Total Score: 5 01/27/20 24 10:54 AM EDT documented as of this encounter Care Teams Briefcase Sewer Relationship Specialty Start Date End Date Adal Terrell MD [address] [place] [address] PCP - General Internal Medicine 03/08/14 documented as of this encounter
--- OUTSIDE RECORDS SUMMARY | 2024-12-14 15:28 | XMS_ITS | Clinical Summary ---
Author Organization [facility] it Address [address] [place] [address] Care Team Providers Care Renewals Manager Name Role Phone Unavailable Primary Care [...] complete this topic RSV Immunization Patients Un geraldien 20 months Aged Out No longer eligible b ased on patient's age to complete this topic Varicella Vaccines Aged Out No longer eligible based on patient's age to complete this topic Advance Directives Documents on File Type Date Recorded Patient Guest Attendant Expl anation Health Care Decision (hx) 07/06/2020 [...]
--- OUTSIDE RECORDS SUMMARY | 2024-12-14 15:28 | XMS_ITS | Encounter Summary ---
Author Organization [employer] Address [address] [place] [address] Care Team Providers Care Res Habilitation Assistant Name Role Phone Adal Terrell MD Primary Care Provide r Reason for Visit * Reason Onset Date Comments Med Refill 12/08/2024 Encounter Details Date Type Department Care Team ([facility] st Contact Info) Description 12/08/2024 Telephone [facility] [address] [place] [address] Adal Terrell MD [address] [place] [address] Med Refill Social History Tobacco Use Types [...] encounter Miscellaneous Notes * Telephone Encounter - Tanya Solano - 12/08/2024 1:29 PM EDT TC from pt requesting medication refill. Medications needing refill : oxyCODONE (Roxicodone) 5 MG immediate release tablet To be sent to: [id number] [place], [place] - [address] [facility] documented in this encounter Plan of Treatment Upcoming Encounters Date Type Department Care Team (Late st Contact Info) Description 02/24/2025 1:30 PM EDT Clinical Support [facility] [address] [place] [address] Marci Kennedy RN [address] [place] [address] 03/24/2025 2:30 PM EDT Office Visit [facility] [address] [place], [place] [phone] Adal Terrell MD [address] [place], [place] [phone] documented as of this encounter Visit Diagnoses Not on filedocumented in this encounter Additional Health Concerns Assessment Noted Time PHQ-9 Depression Total Score: 0 12/01/19 25 10:42 AM EDT documented as of this encounter Care Teams Res Habilitation Assistant Relationship Specialty Start Date End Date Adal Terrell MD [address] [place] [address] PCP - General Internal Medicine 03/08/14 documented as of this encounter
--- OUTSIDE RECORDS SUMMARY | 2024-12-14 15:29 | XMS_ITS | Clinical Summary ---
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 MD; Liliana rCum PA-C ? EXAMINATION: ?? Ultrasound renal, bilaterally. ? CLINICAL INFORMATION: CVA tenderness. Probable hydronephrosis. ? COMPARISON: ?? Correlated to CT dated November 29, 2024. ? TECHNIQUE: ?? Real-time ultrasound the kidneys using grayscale technique. ? FINDINGS: ? Right kidney: ? 12 x 5 x 6 cm. Volume: 175 cc. ?? Normal echotexture. ?? Normal renal cortical thickness. ?? No hydronephrosis. ?? No solid or cystic lesion. ? Left kidney: ? 11 x 5 x 4 cm. Volume: 117 cc. ?? Normal echotexture. ?? Normal renal cortical thickness. ?? No hydronephrosis. ?? No solid or cystic lesion. ? US/US renal BI ?? IMPRESSION: ? No hydronephrosis. Negative exam. ? Electronically signed by: ??Vicente Santos MD ??12/03/2024 08:36 AM ?? EDT RP ? Dictated By: ?Vicente Wilkerson MD ? Signed By: ?<Electronically signed by Vicente Mon MD in OV> ? 12/03/24 0836 ? DD/ 0819 ? TD/TT: 12/03/24823 ? Mimeographer: ? Procedure Note Rosaura, Image - 12/03/2024 [place] [address] Ultrasound Report Signed Patient: Nisa HallMR#: [id number] : 1975Acct:[id number] Age/Sex: 49 / FADM Date: 12/03/24 Loc: HO.ED Attending Dr: Ordering Physician: Liliana Crum PA-C Date of Service: 12/03/24 Procedure(s): US renal BI Accession Number(s): [id number] cc: Adal Alves MD; Liliana Crum PA-C EXAMINATION: Ultrasound renal, bilaterally. CLINICAL INFORMATION: CVA tenderness. Probable hydronephrosis. COMPARISON: Correlated to CT dated November 29, 2024. TECHNIQUE: Real-time ultrasound the kidneys using grayscale technique. FINDINGS: Right kidney: 12 x 5 x 6 cm. Volume: 175 cc. Normal echotexture. Normal renal cortical thickness. No hydronephrosis. No solid or cystic lesion. Left kidney: 11 x 5 x 4 cm. Volume: 117 cc. Normal echotexture. Normal renal cortical thickness. No hydronephrosis. No solid or cystic lesion. US/US renal BI IMPRESSION: No hydronephrosis. Negative exam. Electronically signed by: Vicente Santos MD 12/03/2024 08:36 AM EDT RP Dictated By: Vicente Wilkerson MD Signed By: <Electronically signed by Vicente Mon MDin OV> 12/03/24835 DD/ 8 TD/TT: 12/03/24823 Mimeographer: us [facility] External Provider IMG US PROCEDURES Final Result * (ABNORMAL) Urinalysis, Complete, with Reflex to Culture (12/03/2024 8:09 AM EDT) Only the most recent of4 resultswithin the time period is included. Color Urine Yellow [facility] Appearance Urine Clear [facility] PH 5.5 5.0 - 9.0 [facility] Glucose Urine UA Negative Negative mg/dL [facility] Urine Blood Negative Negative [facility] Specific Garvin - Urine 1.020 1.005 - 1.025 [facility] Urine Protein Negative Neg-Trace mg/dL [facility] Urine Ketones Trace Negative mg/dL [facility] Nitrite Urine Negative Negative [facility] Leukocyte Esterase Urine Small (1+)(A) Negative [facility] RBC Urine 0-2 0 - 2 /HPF [facility] Urine WBC 0-5 0 - 5 /HPF [facility] Urine Squamous Epithelial Cell 3-5 0 - 2 /HPF [facility] Urine Bacteria None Seen None Seen [facility] Hyaline Casts, Urine 0-2 0 - 2 /LPF [facility] 12/03/2024 8:09 AM EDT 12/03/2024 8:13 AM EDT Narrative [facility] - 12/03/2024 8:32 AM EDT [id number], Clean Catch Generic External Data Provider LAB URINE ORDERAB LES Final Result Performing Organization Address [facility] de Phone Number [facility] [address] [place] [phone] * Culture, Urine, Routine (12/03/2024 12:00 AM EDT) Only the most recent of3 resultswithin the time period is included. Urine Urine specimen obtained by clean catch procedure / Unknown 12/03/2024 12/03/2024 Comment:UACC Narrative [facility] - 12/04/2024 10:21 AM EDT Urine Culture No growth. Specimen Source: Urine clean catch Generic External Data Provider LAB MICROBIOLOGY - GENERAL ORDERABLES Final Result Performing Organization Address [facility] de Phone Number [facility] [address] [place] [phone] * CT Abdomen Pelvis w/o Contrast (11/29/2024 6:59 PM EDT) Only the most recent of2 resultswithin the time period is included. Anatomical Region Laterality Modality Body, Pelvis, Abdomen Computed T omography 11/29/2024 6:59 PM EDT Narrative 11/29/2024 7:00 PM EDT ? [facility] ?[address] ?[place] [address] ? CT Scan Report ? Signed ? Patient: Hall,Nisa ?MR#: [id number] ?? [id number] ? : 1975 ?Acct:[id number] ? Age/Sex: 49 / F ?ADM Date: 05/05/25 ? Loc: HO.ED ? Attending Dr: ? Ordering Physician: Jasvir Clayton ?? Date of Service: 11/29/24 ?? Procedure(s): CT abdomen pelvis wo IV con ?? Accession Number(s): [id number] ? cc: Jasvir Clayton; Adal Alves MD ? Report Number: ?? [id number]: Total DLP = ??521.00 mGy-cm ? CLINICAL [...] ? DD/ 58 ? TD/TT: 11/29/241858 ? Mimeographer: ? Procedure Note Ayo Kaplan - 11/29/[address] [place] [address] [address] Scan Report Signed Patient: Nisa HallMR#: [id number] : 1975Acct:[id number] Age/Sex: 49 / FADM Date: 11/29/24 Loc: HO.ED Attending Dr: Ordering Physician: Jasvir Clayton Date of Service: 11/29/24 Procedure(s): CT abdomen pelvis wo IV con Accession Number(s): [id number] cc: Jasvir Clayton; Adal Alves MD Report Number: [id number]: Total DLP = 521.00 mGy-cm CLINICAL HISTORY: [...] by Cole Grant MD in OV> 11/29/24 1900 DD/ 58 TD/TT: 11/29/241858 Mimeographer: [facility] External Provider IMG CT PROCEDURES Final Result * HCG, Qualitative, Urine (11/29/2024 5:57 PM EDT) Urine NEGATIVE NEGATIVE [facility] Comment:This test was develo ped to detect early . Falsenegative results may occur after the 5th - 7th week ofpregnancy when using this test method. If clinicallyindicated, consider a serum hCG. 11/29/2024 5:57 PM EDT 11/29/2024 6:01 PM EDT Generic External Data Provider LAB URINE ORDERAB LES Final Result [facility] [phone] [phone] * hCG, Total, Quantitative (11/29/2024 5:57 PM EDT) Only the most recent of2 resultswithin the time period is included. HCG Quantitative <2 mIU/mL [facility] Comment:Weeks post LMP Appro ximate hCG(Last Menstrual Period) Range (mIU/ml)3 - 4 weeks 9 - 1304 - 5 weeks 75 - 2,6005 - 6 weeks 850 - 20,8006 - 7 weeks 4000 - 100,2007 - 12 weeks 11,500 - 289,44737 - 16 weeks 18,300 - 137,97806 - 29 weeks (2nd trimester) 1,400 - 53,78982 - 41 weeks (3rd trimester) 940 - [...] Organization Address [facility]/ZIP Co de Phone Number [facility] [address] [place] [phone] * Blood Culture (Second) (11/27/2024 3:16 PM EDT) Blood Venous blood specimen / Unknown 11/27/2024 3:16 PM EDT 11/27/2024 3:20 PM EDT Comment:Blood [facility] - 12/02/2024 5:20 PM EDT Blood Culture (Second) No growth after 5 days. Specimen Source: Blood Generic External Data Provider LAB MICROBIOLOGY - GENERAL ORDERABLES Final Result Performing Organization Address City/[facility]/ZIP Co de Phone Number [facility] [address] [place] [phone] * Blood Culture (First) (11/27/2024 3:12 PM EDT) Blood Venous blood specimen / Unknown 11/27/2024 3:12 PM EDT 11/27/2024 3:20 PM EDT Comment:Blood [facility] - 12/02/2024 5:22 PM EDT Blood Culture (First) No growth after 5 days. Specimen Source: Blood us Generic External Data Provider LAB MICROBIOLOGY - GENERAL ORDERABLES Final Result Performing Organization Address City/[facility]/ZIP Co de Phone Number [facility] [address] [place] [phone] * (ABNORMAL) Bacterial Vaginosis Panel (11/27/2024 11:24 AM EDT) TRICHOMONAS VAGINALIS DETECTION BY PCR NOT DETECTED Not Detect [facility] BACTERIAL VAGINOSIS DETECTION BY PCR POSITIVE(A) Negative [facility] Comment:The BV organism targ ets of [...] DETECTION BY PCR NOT DETECTED Not Detect [facility] Tasha glab krusei PCR NOT DETECTED Not Detect [facility] Swab Vaginal structure / Unknown 11/27/2024 11:24 AM EDT 11/27/2024 2:45 PM EDT us Craig Mallory MD LAB MICROBIOLOGY - GENERAL ORDER CARLOS Final Result Performing Organization Address [facility] Co de Phone Number [facility] [address] [place] [phone] * Chlamydia/N. Gonorrhoeae RNA, TMA, Urogenitial (11/27/2024 11:24 AM EDT) CT PCR NOT DETECTED Not Detect. [facility] Comment:A not detected test result does [...] psychologicalconsequences. NG PCR NOT DETECTED Not Detect. [facility] Comment:A not detected test result does [...] AM EDT 11/27/2024 2:42 PM EDT Narrative [facility] - 11/28/2024 12:18 PM EDT Vaginal us Craig Name LAB MICROBIOLOGY - GENERAL ORDER CARLOS Final Result [facility] [address] [place] [phone] * (ABNORMAL) POCT urinalysis dipstick manually [...] Iron Binding Capacity (11/05/2024 2:58 PM EDT) Pathologist [facility] Iron 35 30 - 160 mcg/dL [facility] Total Iron Binding Capacity 302 228 - 428 mcg/dL [facility] Percent Iron Saturation 12(L) 15 - 50 % [facility] Unsaturated Iron Binding 267 ug/dL [facility] 11/05/2024 2:58 PM EDT 11/05/2024 2:58 PM EDT Generic External Data Provider LAB BLOOD ORDERAB LES Final Result Performing Organization Address City/State/[facility] Co de Phone Number [facility] [address] [place] [phone] * (ABNORMAL) CBC (11/05/2024 2:58 PM EDT) Pathologist [facility] White Blood Count 14.9(H) 4.8 - 10.8 X10*3/uL [facility] Red Blood Count 4.57 4.20 - 5.50 X10*6/uL [facility] Hemoglobin 12.9 12.0 - 16.0 g/dl [facility] Hematocrit 38.2 37.0 - 47.0 % [facility] Mean Corpuscular Volume 83.6 80.0 - 98.0 fL [facility] Mean Corpuscular Hemoglobin 28.2 27.0 - 33.0 pg [facility] Mean Corpuscular HGB Conc 33.8 31.0 - 35.0 g/dl [facility] Red Cell Distribution Width 15.6 11.0 - 16.0 % [facility] Platelet Count 352 160 - 400 X10*3/uL [facility] Mean Platelet Volume 9.4 9.4 - 12.3 fL [facility] NRBC Pct Auto 0.0 0.0 - 0.2 /100WBC [facility] NRBC Abs Auto 0.000 0.0 - 0.012 X10*3/uL [facility] 11/05/2024 2:58 PM EDT 11/05/2024 2:58 PM EDT Generic External Data Provider LAB BLOOD ORDERAB LES Final Result Performing Organization Address City/[facility]/ZIP Co de Phone Number [facility] [address] [place] [address] [phone] * Ferritin (11/05/2024 2:58 PM EDT) Ferritin 134 10 - 250 ng/mL [facility] 11/05/2024 2:58 PM EDT 11/05/2024 2:58 PM EDT Generic External Data Provider LAB BLOOD ORDERAB LES Final Result Performing Organization Address City/[facility]/ZIP Co de Phone Number [facility] [address] [place] [phone] * Hm Colonoscopy (11/02/2024 9:48 AM EDT) Colonoscopy Normal Normal Narrative Georgiana Longo - 11/02/2024 9:48 AM EDT See external hospital admission note on 11/02/2024 . Repeat in 6-12 months due to poor prep Historical Provider [facility] Edited Result - Final * Hematoxylin and Eosin Stain (11/02/2024 8:23 AM EDT) 11/02/2024 8:23 AM EDT 11/02/2024 9:54 AM EDT Narrative [facility] - 11/09/2024 1:53 PM EDT ----- ------- Name: RafaelNisa ?Age/Sex: 48/F ? : 1975 Unit#: [id number] ?? Attend Dr: Vee Marques MD ?Re11/02/24 ?Status: DEP SDC ? Location: HO.SSS ?Disch: ? ----- ------- SPEC : [id number] ? RECD: 11/02/2464 ? STATUS: ??SOUT ? REQ NUM: [id number] ? JAMES: 11/02/24-822 ? SUBM DR: Vee [...] Signed (signature on file) Gisella Celso 11/09/24 3049 ? ----- ------- ? Diagnosis ?? A. [...] Hall ?Age/Sex: 48/F ? : 1975 Unit#: [id number] ?? Attend Dr: Vee Marques MD ?Re11/02/24 ?Status: DEP SDC ? Location: HO.SSS ?Disch: ? ----- ------- SPEC : [id number] ? RECD: 11/02/24-953 ? STATUS: ??SOUT ? REQ NUM: [id number] ? JAMES: 11/02/24-822 ? SUBM DR: Vee [...] Hall ?Age/Sex: 48/F ? : 1975 Unit#: [id number] ?? Attend Dr: Vee Marques MD ?Re11/02/24 ?Status: DEP AKC ? Location: HO.SSS ?Disch: ? ----- ------- SPEC : [id number] ? RECD: 11/02/24-953 ? STATUS: ??SOUT ? REQ NUM: [id number] ? JAMES: 11/02/24-822 ? SUBM DR: Vee Marques MD ? ENTERED: ??11/02/24-100 ?SP TYPE: Surgical ? OTHR DR: Adal Alves MD ?? ORDERED: ??HE Stain/18, Gross Micro L4/6, IHC/2, Special st. 2, H. pylori/2, AB/PAS ? COMMENTS: Block C sent to [facility] for Gastrin IHC on 11/04/24. ? Gross Description ?(Continued) CEDS Special studies ordered and performed at [facility]: Immunostain for H. pylori on B1; AB/PAS stain on C1. Special studies ordered and performed at [facility]: Immunostain for gastrin on C1. Copies To: ?? Adal Alves MD ?? [facility] ?? [address] ?? [place] [address] ?? [phone] ?? Vee Marques MD ?? [facility] ?? [address] ?? [place] [address] ?? [phone] ?? [email or web address] ----- ------- Signed (signature on file) Gisella Celso 11/04/241913 ? ----- ------- ? END OF REPORT ? us Generic External Data Provider LAB BLOOD ORDERAB LES Final Result [facility] [address] [place] [phone] * (ABNORMAL) Lipid Panel, Standard (09/10/2024 11:04 AM EST) Triglycerides 91 <150 mg/dL [facility] Comment:Desirable Triglyceri de: less than 150 mg/dLBorderline High Triglyceride 150-199 mg/dLHigh Triglyceride: 200-499 mg/dLVery High Triglyceride: greater than or equal to 5OO mg/dL Cholesterol 155 <200 mg/dL [facility] Comment:Desirable Cholestero l: less than 200 mg/dLBorderline High Cholesterol: 200-239 mg/dLHigh Cholesterol: greater than 239 mg/dL LDL Cholesterol Calculated 108(H) <100 mg/dL [facility] Comment:Desirable LDL: less than 100 mg/dLNear Optimal/Above Optimal LDL: 110- 129 mg/dLBorderline High LDL: 130-159 mg/dLHigh LDL: 160-189 mg/dLVery High LDL: greater than or equal to 190 mg/dL HDL Cholesterol 29(L) >40 mg/dL [facility] Comment:Desirable HDL: great er than 40 mg/dL Note: This HDL assay may give artificially low results in patients with liver disease. Blood Venous blood specimen / Unknown 09/10/2024 11:04 AM EST 09/10/2024 11:04 AM EST Adal Mccarthy MD LAB BLOOD ORDERABLES Final Result Performing Organization Address [facility] de Phone Number [facility] [address] [place] [phone] * Hemoglobin A1c (09/01/2024 3:07 PM EST) Hemoglobin A1c 5.9 <6.0 % [facility] Comment:Hemoglobin A1C Refer ence Range Adults: 4.8 - 6.0 % Non diabetic: < 6.0 % Goal: < 7.0 %Additional Action Suggested: > 8.0 %Note: Hemoglobin A1c results are invalid for patients with abnormal amounts of HbF. Blood transfusions may impact the HbA1c concentration in the patient sample. Estimated Average Glucose 123 mg/dL [facility] Comment:eAG = Estimated ave rage glucose which is %A1C expressed asaverage glucose, using the formula of the Z3X-LumtqaiCgmsjio Glucose study (ADAG), Diabetes Care, Vol.31,#8,Aug. 2007 09/01/2024 3:07 PM EST 09/01/2024 3:07 PM EST us Generic External Data Provider LAB BLOOD ORDERAB LES Final Result Performing Organization Address [facility] Co de Phone Number [facility] [address] [place] [phone] * BI Mammogram Screening Tomosynthesis Bilateral (08/26/2024 2:40 PM EST) Anatomical Region Laterality Modality Breast Bilateral Mammography 08/26/2024 2:40 PM EST Narrative 09/04/2024 7:21 PM EST ? [facility] ? [address] ?[place] [address] ? Mammography Report ? Signed ? Patient: Hall,Nisa ?MR#: [id number] ?? [id number] ? : 1975 ?Acct:[id number] ? Age/Sex: 48 / F ?ADM Date: 08/26/24 ? Loc: HO.MAMMO ? Attending Dr: Adal Alves MD ? Ordering Physician: Adal Alves MD ?Resu ?? lts: 2Benign Findings ? Date of Service: 08/26/24 ?Follow Up: 1 Year From Orig ?? inal Mammogram ? Procedure(s): MM tomosynthesis screening BI ?? Accession Number(s): [id number] ? cc: Adal Alves MD ? EXAMINATION: [...] DD/ 1440 ? TD/TT: 08/26/24 1450 ? Mimeographer: ? Procedure Note Donotjoãointerpreter, Image - 09/04/2024 [facility] [address] [place] [address] Mammography Report Signed Patient: Nisa HallMR#: [id number] : 1975Acct:[id number] Age/Sex: 48 / FADM Date: 08/26/24 Loc: DAMIAN Attending Dr: Adal Alves MD Ordering Physician: Adal Alves MDResu lts: 2Benign Findings Date of Service: 08/26/24Follow Up: 1 Year From Orig inal Mammogram Procedure(s): MM tomosynthesis screening BI Accession Number(s): [id number] cc: Adal Alves MD EXAMINATION: MM SCREENING [...] 09/04/24 1918 DD/ 1440 TD/TT: 08/26/24 1450 Mimeographer: Adal Mccarthy MD IMG BI PROCEDURES Reji ebenezer Result - Final * HEPATITIS C AB W/REFL TO HCV RNA, QN, PCR (02/05/2022 10:03 AM EDT) HEPATITIS C ANTIBODY NON-REACT HENRIQUE NON-REACT HENRIQUE [facility] INDEX 0.03 <1.00 [facility] Comment: ?? HCV antibody was non-reactive. There is no laboratory ?? evidence of HCV infection. ?? In most cases, no further action is required. However, if recent HCV exposure is suspected, a test for HCV RNA (test code 53224) is suggested. ?? For additional information please refer to http://education.[employer].Hub[employer]/faq/FSN76j2 (This link is being provided for informational/ educational purposes only.) ?? 02/05/2022 10:0 3 AM EDT Adal Mccarthy MD HISTORICAL/NON ORDERA BLE LABS Final Result [facility] [address] * HIV 1/2 ANTIGEN/ANTIBODY,FOURTH GENERATION W/RFL (02/05/2022 9:38 AM EDT) Pathologist [facility] HIV-1/2 ANTIGEN AND ANTIBODIES, 4TH GENERATION W/ REFLEX [facility] Comment: TEST NOT PERFORMED ?? No serum received. 02/05/2022 9:38 AM EDT Adal Mccarthy MD LAB BLOOD ORDERABLES Final Result Performing Organization Address [facility]/ZIP Co de Phone Number [facility] [address] * HPV mRNA E6/E7 (06/04/2018 12:00 AM EST) Pathologist [facility] HPV mRNA E6/E7 Not Detected NOT DETECTED [facility] Comment: This test was performed using the APTIMA(R) HPV Assay ([employer] This assay detects E6/E7 viral messenger RNA (mRNA) from 14 high-risk HPV types (16,18,31,33,35,39,45,51, 52,56,58,59,66,68). For additional information please refer to: http://education.Yodle/faq/TFU020g2 (This link is being provided for informational/ educational purposes only.) The analytical performance characteristics of this assay have been determined by [email or web address] [place], [place]. The modifications have not been cleared or approved by the FDA. This assay has been validated pursuant to the CLIA regulations and is used for clinical purposes. Test Performed by [facility], [employer] [facility], [address] [place] [address] Marcos Brasher M.D., Ph.D., Director of Laboratories , CLIA [id number] Please note: ??Effective 04/08/2016, HPV testing will be performed using [employer]'s APTIMA test which targets mRNA. Detecting mRNA instead of DNA, as in older methods, offers significant improvements in specificity. 06/04/2018 Lisa Goldstein CNM HISTORICAL/NON ORDERABLE LABS Final Result Performing Organization Address [facility]/ZIP Co de Phone Number [facility] [address] [place] [phone], from Last 3 Months or Most Recently Relevant to Health Maintenance Insurance [facility] [employer] Care Teams Internet Marketing Manager Relationship Specialty Start Date End Date Adal Terrell MD [address] [place] [address] PCP - General Internal Medicine 03/08/14
--- OUTSIDE RECORDS SUMMARY | 2024-12-14 15:29 | XMS_ITS ---
Author Organization [employer] Address [address] [facility] 7t [place] [address] Care Team Providers Care Farmworker Brooder Farm Name Role Phone Adal Terrell MD Primary Care Provide r CHW Complex Status:Enrolled (Active) Start date:11/29/2024 Enrollment date:11/29/2024 Enrollment reason:ADT Feed Overview ADT- [facility] ED 11/27/24 Case Team Name Relationship Phone Satish Bran(Responsible Staff) [phone] Continued Care and Services Coordination
--- OUTSIDE RECORDS SUMMARY | 2024-12-14 15:29 | XMS_ITS | Clinical Summary ---
Author Organization [facility] Address [address] [place] [address] Care Team Providers Care Sheet Folder Name Role Phone Unavailable Primary Care Provider [...] patient's age to complete this topic Insurance [facility]
--- OUTSIDE RECORDS SUMMARY | 2024-12-14 15:29 | XMS_ITS | Encounter Summary ---
Author Organization [employer] Address [address] [facility] 7t [place] [address] Care Team Providers Care Block Cableman Name Role Phone Adal Terrell MD Primary Care Provide r Encounter Details Date Type Department Care Team ([facility] st Contact Info) Description 11/05/2024 Orders Only [facility] CHC MED & PEDS [address] [place], [place] [phone] ProviderTong MD Social History Tobacco Use Types Packs/Day [...] Description 02/24/2025 1:30 PM EDT Clinical Support [facility] CHC MED & PEDS 505 [place] [address] Marci Kennedy, RN 505 [place] [address] 03/24/2025 2:30 PM EDT Office Visit [facility] MEDICINE 230 [place] [address] Adal Terrell MD 230 [place], [place] [phone] documented as of this encounter Procedures Procedure Name Priority Date/Time Associated Diagnosis Comments IRON AND TOTAL IRON BINDING CAPACITY Routine 11/05/2024 2:58 PM EDT CBC Routine 11/05/2024 2:58 PM EDT FERRITIN Routine 11/05/2024 2:58 PM EDT HM COLONOSCOPY Routine 11/02/2024 9:48 AM EDT documented in this encounter Results * Ferritin (11/05/2024 2:58 PM EDT) Ferritin 134 10 - 250 ng/mL [facility] 11/05/2024 2:58 PM EDT 11/05/2024 2:58 PM EDT us Generic External Data Provider LAB BLOOD ORDERAB LES Final Result Performing Organization Address [facility] Co de Phone Number [facility] [address] [place] [phone] * (ABNORMAL) Iron And Total Iron Binding Capacity (11/05/2024 2:58 PM EDT) [facility] Iron 35 30 - 160 mcg/dL [facility] Total Iron Binding Capacity 302 228 - 428 mcg/dL [facility] Percent Iron Saturation 12(L) 15 - 50 % [facility] Unsaturated Iron Binding 267 ug/dL [facility] 11/05/2024 2:58 PM EDT 11/05/2024 2:58 PM EDT Generic External Data Provider LAB BLOOD ORDERAB LES Final Result Performing Organization Address [facility] de Phone Number [facility] [address] [place] [phone] * (ABNORMAL) CBC (11/05/2024 2:58 PM EDT) [facility] White Blood Count 14.9(H) 4.8 - 10.8 X10*3/uL [facility] Red Blood Count 4.57 4.20 - 5.50 X10*6/uL [facility] Hemoglobin 12.9 12.0 - 16.0 g/dl [facility] Hematocrit 38.2 37.0 - 47.0 % [facility] Mean Corpuscular Volume 83.6 80.0 - 98.0 fL [facility] Mean Corpuscular Hemoglobin 28.2 27.0 - 33.0 pg [facility] Mean Corpuscular HGB Conc 33.8 31.0 - 35.0 g/dl [facility] Red Cell Distribution Width 15.6 11.0 - 16.0 % [facility] Platelet Count 352 160 - 400 X10*3/uL [facility] Mean Platelet Volume 9.4 9.4 - 12.3 fL [facility] NRBC Pct Auto 0.0 0.0 - 0.2 /100WBC [facility] NRBC Abs Auto 0.000 0.0 - 0.012 X10*3/uL [facility] 11/05/2024 2:58 PM EDT 11/05/2024 2:58 PM EDT us Generic External Data Provider LAB BLOOD ORDERAB LES Final Result [facility] [address] [place] [phone] * Hm Colonoscopy (11/02/2024 9:48 AM [...] as of this encounter Care Teams Block Cableman Relationship Specialty Start Date End Date Adal Terrell MD [address] [place] [phone] PCP - General Internal Medicine 03/08/14 documented as of this encounter
[2024-12-14 17:51] LABS: CT PCR NOT DETECTED (Not Detect.); NG PCR NOT DETECTED (Not Detect.)
[2024-12-15 03:30] LABS: Syphilis Screen Nonreactive (Nonreactive)
[2024-12-15 04:01] LABS: HBc Num1 0.13 S/CO (0.00-0.79); HIV AB/AG Nonreactive (Nonreactive); HIV Num 1 0.09 S/CO (0.00-0.99); Hepatitis B Core Antibody Nonreactive (Nonreactive); Hepatitis B Surface Antigen Negative (Negative); ~Hepatitis C Antibody Nonreactive (Nonreactive)
== END 2024-12-14 14:06 | disposition home or self-care (01) ==
LOC: HO.LAB 14:05
PROVIDERS: PCP Internal Medicine; Visit Provider Internal Medicine
DX: Z71.1 Person with feared health complaint in whom no diagnosis is made (principal); N39.0 Urinary tract infection, site not specified; M77.11 Lateral epicondylitis, right elbow; M25.521 Pain in right elbow
CPT/HCPCS: 81001; 86704; 86780; 86803; 87340; 87389; 87491; 87591; 99212; J1100; J2003

== ENCOUNTER 2024-12-14 14:32 | Outpatient (AMB) | payer MEDICAID, SELFPAY ==
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
--- OUTSIDE RECORDS SUMMARY | 2024-12-14 15:55 | XMS_ITS | Encounter Summary ---
Author Organization [employer] Address [address] [facility] [address] 7t [place] [address] Care Team Providers Care Wet End Helper Name Role Phone Adal Terrell MD Primary Care Provide r Encounter Details Date Type Department Care Team ([facility] st Contact Info) Description 11/09/2024 Telephone [facility] MEDICINE 230 [place], [place] [phone] Adal Terrell MD 230 [place] [address] Social History Tobacco Use Types Packs/Day Years [...] [facility] CHC MED & PEDS [address] [place] [address] Marci Kennedy, RN 505 [place] [address] 03/24/2025 2:30 PM EDT Office Visit [facility] MEDICINE [address] [place] [address] Adal Terrell MD 230 [place] [address] documented as of this encounter Visit Diagnoses Not on filedocumented in this encounter Additional Health Concerns Assessment Noted Time PHQ-9 Depression Total Score: 5 01/27/20 24 10:54 AM EDT documented as of this encounter Care Teams Wet End Helper Relationship Specialty Start Date End Date Adal Terrell MD [address] [place] [address] PCP - General Internal Medicine 03/08/14 documented as of this encounter
--- OUTSIDE RECORDS SUMMARY | 2024-12-14 15:55 | XMS_ITS | Encounter Summary ---
Author Organization [employer] Address 75 [facility] [address] 7t [place] [address] Care Team Providers Care Traveling Clerk Name Role Phone Adal Terrell MD Primary Care Provide r Reason for Visit * Reason Comments Care Coordination C3CM f/u call Encounter Details Date Type Department Care Team (Latest Contact Info) Description 12/13/2024 Patient Outreach [facility] CHC MED & PEDS 505 [place] [address] Adal Terrell MD 230 [place] [address] Care Coordination (C3CM f/u call) Social History [...] PCP and advised pt to request for director multiple sclerosis center referral and to write down all herconcerns [...] provided on Walk-In Urgent Care located in [facility] of [facility]. Patient provided with after-hours line for [facility], , which offer nighttime triage service and option to transfer to union contract representative provider if needed. Patient verbalizes understanding, and able to repeat back to communications writer. A follow up call will be placed within 10 days, patient agrees with plan. documented in this encounter Plan of Treatment Upcoming Encounters Date Type Department Care Team (Late st Contact Info) Description 02/24/2025 1:30 PM EDT Clinical Support [facility] CHC MED & PEDS [address] [place] [address] Marci Kennedy, RN 505 [place] [address] 03/24/2025 2:30 PM EDT Office Visit [facility] MEDICINE 230 [place] [address] Adal Terrell MD [address] [place] [address] documented as of this encounter Visit Diagnoses Not on filedocumented in this encounter Additional Health Concerns Assessment Noted Time PHQ-9 Depression Total Score: 0 12/01/19 25 10:42 AM EDT documented as of this encounter Care Teams Traveling Clerk Relationship Specialty Start Date End Date Adal Terrell MD 230 [place] [address] PCP - General Internal Medicine 03/08/14 documented as of this encounter
--- OUTSIDE RECORDS SUMMARY | 2024-12-14 15:55 | XMS_ITS | Encounter Summary ---
Author Organization [employer] Address 75 [facility] 7t [place] [address] Care Team Providers Care Well Surveying Engineer Name Role Phone Adal Terrell MD Primary Care Provide r Reason for Visit * Reason Comments Care Coordination C3CM/CHW YANDEL GomezOH f/u Encounter Details Date Type Department Care Team (Latest Contact Info) Description 12/13/2024 Patient Outreach [facility] MEDICINE [address] [place] [address] Adal Terrell MD 230 [place] [address] Care Coordination (C3AKILAH/YANDEL Treviño f/u) Social History [...] Wednesdays, and Walk-In Urgent Care Located in [facility] of [facility]. Patient provided with after-hours line for [facility], , which offer night time triage service and option to transfer to rural electrification engineer provider if needed. Patient verbalizes understanding, and able to repeat back to caption writer. A follow up call will be placed within 10 days, patient agrees with plan. documented in this encounter Plan of Treatment Upcoming Encounters Date Type Department Care Team ([facility] st Contact Info) Description 02/24/2025 1:30 PM EDT Clinical Support [facility] MED & PEDS 505 [place] [address] Marci Kennedy, RN 505 [place] [address] 03/24/2025 2:30 PM EDT Office Visit [facility] MEDICINE 230 [place] [address] Adal Terrell MD [address] [place] [address] documented as of this encounter Visit Diagnoses Not on filedocumented in this encounter Additional Health Concerns Assessment Noted Time PHQ-9 Depression Total Score: 0 12/01/19 25 10:42 AM EDT documented as of this encounter Care Teams Well Surveying Engineer Relationship Specialty Start Date End Date Adal Terrell MD [address] [place] [phone] PCP - General Internal Medicine 03/08/14 documented as of this encounter
--- OUTSIDE RECORDS SUMMARY | 2024-12-14 15:55 | XMS_ITS | Encounter Summary ---
Author Organization [employer] Address [address] [facility] [address] 7t [place] [address] Care Team Providers Care International Sourcing Manager Name Role Phone Adal Terrell MD Primary Care Provide r Reason for Visit * Reason Onset Date Comments Med Refill 11/08/2024 Encounter Details Date Type Department Care Team ([facility] st Contact Info) Description 11/08/[address] [facility] MEDICINE 230 [place] [address] Adal Terrell MD 230 [place] [address] Med Refill Social History Tobacco Use Types [...] immediate release tablet To be sent to: [facility][id number] [place] - [address] [facility] documented in this encounter Plan of Treatment Upcoming Encounters Date Type Department Care Team (Late st Contact Info) Description 02/24/2025 1:30 PM EDT Clinical Support [facility] CHC MED & PEDS 505 [place] [address] Marci Kennedy RN 505 [place] [address] 03/24/2025 2:30 PM EDT Office Visit [facility] MEDICINE 230 [place] [address] Adal Terrell MD 230 [place] [address] documented as of this encounter Visit Diagnoses Not on filedocumented in this encounter Additional Health Concerns Assessment Noted Time PHQ-9 Depression Total Score: 5 01/27/20 24 10:54 AM EDT documented as of this encounter Care Teams International Sourcing Manager Relationship Specialty Start Date End Date Adal Terrell MD 230 [place] [address] PCP - General Internal Medicine 03/08/14 documented as of this encounter
--- OUTSIDE RECORDS SUMMARY | 2024-12-14 15:55 | XMS_ITS | Encounter Summary ---
Author Organization [employer] Address [address] [facility] [address] 7[address] [place] [address] Care Team Providers Care Cnc Supervisor Name Role Phone Adal Terrell MD Primary Care Provide r Reason for Visit * Reason Onset Date Comments Chart Prep 12/13/2024 Encounter Details Date Type Department Care Team ([facility] Contact Info) Description 12/13/2024 Telephone [facility] MEDICINE 230 [place] [address] Adal Terrell MD 230 [place] [address] Chart Prep Social History Tobacco Use Types [...] is your housing situation today? I have aamda edmond 01/27/[address] you [...] OBGYN contacted the office but had to [facility], sent fax request for notes in case pt kept anappt., Physical Therapy Requested notes by Fax. Waiting for notes., Radiology NCS completed, and Occupational Therapy is the same referral to [facility] Rehab, requested notes. Screenings: PAP Overdue care gaps: Disability Chart prep for upcoming appt with Dr.Esparza lion. LB documented in this encounter Plan of Treatment Upcoming Encounters Date Type Department Care Team (Late st Contact Info) Description 02/24/2025 1:30 PM EDT Clinical Support [facility] CHC MED & PEDS 505 [place] [address] Marci Kennedy, YANET [address] [place] [address] 03/24/2025 2:30 PM EDT Office Visit [facility] MEDICINE [address] [place] [address] Adal Terrell MD 230 [place] [address] documented as of this encounter Visit Diagnoses Not on filedocumented in this encounter Additional Health Concerns Assessment Noted Time PHQ-9 Depression Total Score: 0 12/01/19 25 10:42 AM EDT documented as of this encounter Care Teams Cnc Supervisor Relationship Specialty Start Date End Date Adal Terrell MD 230 [place] [address] PCP - General Internal Medicine 03/08/14 documented as of this encounter
--- OUTSIDE RECORDS SUMMARY | 2024-12-14 15:55 | XMS_ITS | Encounter Summary ---
Author Organization [employer] Address [address] [facility] [address] 7t [place] [address] Care Team Providers Care Patient Ombudsperson Name Role Phone Adal Terrell MD Primary Care Provide r Reason for Visit * Reason Onset Date Comments Med Refill 10/08/2024 Encounter Details Date Type Department Care Team ([facility] st Contact Info) Description 10/08/2024 Telephone [facility] MEDICINE 230 [place] [address] Adal Terrell MD 230 [place] [address] Med Refill Social History Tobacco Use Types [...] immediate release tablet To be sent to: [facility][id number] [place], [place] - [address] [facility] documented in this encounter Plan of Treatment Upcoming Encounters Date Type Department Care Team ([facility] st Contact Info) Description 02/24/2025 1:30 PM EDT Clinical Support [facility] CHC MED & PEDS 505 [place] [address] Marci Kennedy, RN 505 [place] [address] 03/24/2025 2:30 PM EDT Office Visit [facility] MEDICINE 230 [facility] [place] [address] Adal Terrell MD 230 [place] [address] documented as of this encounter Visit Diagnoses Not on filedocumented in this encounter Additional Health Concerns Assessment Noted Time PHQ-9 Depression Total Score: 5 01/27/20 24 10:54 AM EDT documented as of this encounter Care Teams Patient Ombudsperson Relationship Specialty Start Date End Date Adal Terrell MD 230 [facility] [place] [address] PCP - General Internal Medicine 03/08/14 documented as of this encounter
--- OUTSIDE RECORDS SUMMARY | 2024-12-14 15:55 | XMS_ITS | Clinical Summary ---
Author Organization [facility] it Address [address] [place] [address] Care Team Providers Care Corn Detasseler Machine Operator Name Role Phone Unavailable Primary Care Provider [...] Documents on File Type Date Recorded Patient Graduate Fellow Expl anation Health Care Decision (hx) 07/06/2020 [...]
--- OUTSIDE RECORDS SUMMARY | 2024-12-14 15:55 | XMS_ITS | Encounter Summary ---
Author Organization [employer] Address [address] [facility] [address] 7t h Floor [place] [phone] Care Team Providers Care Disc Pad Knockout Worker Name Role Phone Adal Terrell MD Primary Care Provide r Reason for Visit * Reason Comments Med Refill Encounter Details Date Type Department Care Team ([facility] st Contact Info) Description 04/05/2024 Refill [facility] MEDICINE 230 [place] [address] Ronel Thomas, ANP 230 [place] [address] COVID-19 Social History Tobacco Use Types Packs/Day [...] Upcoming Encounters Date Type Department Care Team ([facility] st Contact Info) Description 02/24/2025 1:30 PM EDT Clinical Support [facility] CHC MED & PEDS 505 [place] [address] Marci Kennedy, YANET 505 [place] [address] 03/24/2025 2:30 PM EDT Office Visit [facility] MEDICINE 230 [place] [address] Adal Terrell MD 230 [place] [address] documented as of this encounter Visit Diagnoses Diagnosis COVID-19 documented in this encounter Additional Health Concerns Assessment Noted Time PHQ-9 Depression Total Score: 5 01/27/20 24 10:54 AM EDT documented as of this encounter Care Teams Disc Pad Knockout Worker Relationship Specialty Start Date End Date Adal Terrell MD [address] [place] [address] PCP - General Internal Medicine 03/08/14 documented as of this encounter
--- OUTSIDE RECORDS SUMMARY | 2024-12-14 15:55 | XMS_ITS | Encounter Summary ---
Author Organization [employer] Address [address] [facility] [address] 7t [place] [address] Care Team Providers Care Skate Shop Attendant Name Role Phone Adal Terrell MD Primary Care Provide r Reason for Visit * Reason Onset Date Comments Med Refill 02/09/2024 Encounter Details Date Type Department Care Team ([facility] st Contact Info) Description 02/09/[address] [facility] MEDICINE 230 [place] [address] Adal Terrell MD 230 [place] [address] Med Refill Social History Tobacco Use Types [...] immediate release tablet To be sent to: [id number] - [place], [place] - [address] [facility] documented in this encounter Plan of Treatment Upcoming Encounters Date Type Department Care Team (Late st Contact Info) Description 02/24/2025 1:30 PM EDT Clinical Support [facility] CHC MED & PEDS 505 [place] [address] Marci Kennedy RN 505 [place] [address] 03/24/2025 2:30 PM EDT Office Visit [facility] MEDICINE 230 [place] [address] Adal Terrell MD 230 [place] [address] documented as of this encounter Visit Diagnoses Not on filedocumented in this encounter Additional Health Concerns Assessment Noted Time PHQ-9 Depression Total Score: 5 01/27/20 24 10:54 AM EDT documented as of this encounter Care Teams Skate Shop Attendant Relationship Specialty Start Date End Date Adal Terrell MD [address] [place] [address] PCP - General Internal Medicine 03/08/14 documented as of this encounter
--- OUTSIDE RECORDS SUMMARY | 2024-12-14 15:55 | XMS_ITS | Encounter Summary ---
Author Organization [employer] Address [address] [facility] [address] 7t [place] [address] Care Team Providers Care Elevator Pilot Name Role Phone Adal Terrell MD Primary Care Provide r Reason for Visit * Reason Onset Date Comments Appointment Request 03/19/2023 Encounter Details Date Type Department Care Team ([facility] st Contact Info) Description 03/19/2023 Telephone [facility] MEDICINE 230 [place] [address] Adal Terrell MD 230 [place] [address] Appointment Request Social History Tobacco Use Types [...] EDT Tc from pt requesting to r/s OXYGEN TANK FILLER visit on 03/21/2023 @ 11:30 am. Pt states due to an emergency she has to fly out to [place] and won't be back in two weeks. Please contact pt at [phone] documented in this encounter Plan of Treatment Upcoming Encounters Date Type Department Care Team ([facility] st Contact Info) Description 02/24/2025 1:30 PM EDT Clinical Support [facility] CHC MED & PEDS 505 [place] [address] Marci Kennedy, RN 505 [place] [address] 03/24/2025 2:30 PM EDT Office Visit [facility] MEDICINE 230 [place] [address] Adal Terrell MD [address] [place] [address] documented as of this encounter Visit Diagnoses Not on filedocumented in this encounter Additional Health Concerns Assessment Noted Time PHQ-9 Depression Total Score: 0 09/10/19 23 11:00 AM EST documented as of this encounter Care Teams Elevator Pilot Relationship Specialty Start Date End Date Adal Terrell MD 230 [place] [address] PCP - General Internal Medicine 03/08/14 documented as of this encounter
--- OUTSIDE RECORDS SUMMARY | 2024-12-14 15:55 | XMS_ITS | Encounter Summary ---
Author Organization [employer] Address [address] [facility] [address] 7[address] [place] [address] Care Team Providers Care Rechecker Name Role Phone Adal Terrell MD Primary Care Provide r Encounter Details Date Type Department Care Team ([facility] st Contact Info) Description 02/05/[address] [facility] MEDICINE 230 [place] [address] Adal Terrell MD 230 [place] [address] Social History Tobacco Use Types Packs/Day Years [...] Description 02/24/2025 1:30 PM EDT Clinical Support [facility] MED & PEDS 505 [place] [address] Marci Kennedy RN 505 [place], [place] [phone] 03/24/2025 2:30 PM EDT Office Visit [facility] MEDICINE [address] [place], [place] [phone] Adal Terrell MD 230 [place], [place] [phone] documented as of this encounter Procedures Procedure [...] documented as of this encounter Care Teams Rechecker Relationship Specialty Start Date End Date Adal Terrell MD 230 [place], [place] [phone] PCP - General Internal Medicine 03/08/14 documented as of this encounter
--- OUTSIDE RECORDS SUMMARY | 2024-12-14 15:55 | XMS_ITS | Encounter Summary ---
Author Organization [employer] Address [address] [facility] 7t [place] [address] Care Team Providers Care Halal Meat Packer Name Role Phone Adal Terrell MD Primary Care Provide r Reason for Visit * Reason Onset Date Comments Med Refill 11/05/2022 Encounter Details Date Type Department Care Team (Late st Contact Info) Description 11/05/2022 Telephone [facility] [address] [place] [address] Adal Terrell MD [address] [place] [address] Med Refill Social History Tobacco Use Types [...] Description 02/24/2025 1:30 PM EDT Clinical Support [facility]S [address] [place] [address] Marci Kennedy, RN [address] [place] [address] 03/24/2025 2:30 PM EDT Office Visit [facility] [address] [place] [address] Adal Terrell MD 230 [place] [address] documented as of this encounter Visit Diagnoses Not on filedocumented in this encounter Additional Health Concerns Assessment Noted Time PHQ-9 Depression Total Score: 0 09/10/19 23 11:00 AM EST documented as of this encounter Care Teams Halal Meat Packer Relationship Specialty Start Date End Date Adal Terrell MD 230 [place] [address] PCP - General Internal Medicine 03/08/14 documented as of this encounter
--- OUTSIDE RECORDS SUMMARY | 2024-12-14 15:55 | XMS_ITS | Encounter Summary ---
Author Organization [employer] Address [address] 7t [place] [address] Care Team Providers Care Golf Manager Name Role Phone Adal Terrell MD Primary Care Provide r Encounter Details Date Type Department Care Team ([facility] st Contact Info) Description 10/13/2024 Telephone [facility] MEDICINE [address] [place], [place] [phone] Adal Terrell MD 230 [place] [address] Social History Tobacco Use Types Packs/Day Years [...] 1:30 PM EDT Clinical Support [facility] CHC MED & PEDS 505 [place] [address] Marci Kennedy, RN 505 [place] [address] 03/24/2025 2:30 PM EDT Office Visit [facility] MEDICINE [address] [place] [address] Adal Terrell MD 230 [place] [address] documented as of this encounter Visit Diagnoses Not on filedocumented in this encounter Additional Health Concerns Assessment Noted Time PHQ-9 Depression Total Score: 5 01/27/20 24 10:54 AM EDT documented as of this encounter Care Teams Golf Manager Relationship Specialty Start Date End Date Adal Terrell MD [address] [place] [address] PCP - General Internal Medicine 03/08/14 documented as of this encounter
--- OUTSIDE RECORDS SUMMARY | 2024-12-14 15:55 | XMS_ITS | Encounter Summary ---
Author Organization [employer] Address [address] 7t [place] [address] Care Team Providers Care Broke Beater Name Role Phone Adal Terrell MD Primary Care Provide r Reason for Visit * Reason Onset Date Comments Referral 12/14/2024 Encounter Details Date Type Department Care Team ([facility] st Contact Info) Description 12/14/2024 Telephone [facility] MEDICINE 230 [place] [address] Adal Terrell MD 230 [place] [address] Referral Social History Tobacco Use Types Packs/Day [...] making pt an appt but had to [facility] again asking to return the call including my direct ext [phone]. LB documented in this encounter Plan of Treatment Upcoming Encounters Date Type Department Care Team (Late st Contact Info) Description 02/24/2025 1:30 PM EDT Clinical Support [facility] CHC MED & PEDS 505 [place] [address] Marci Kennedy RN 505 [place] [address] 03/24/2025 2:30 PM EDT Office Visit [facility] MEDICINE 230 [place] [address] Adal Terrell MD 230 [place] [address] documented as of this encounter Visit Diagnoses Not on filedocumented in this encounter Additional Health Concerns Assessment Noted Time PHQ-9 Depression Total Score: 0 12/01/19 25 10:42 AM EDT documented as of this encounter Care Teams Broke Beater Relationship Specialty Start Date End Date Adal Terrell MD 230 [place] [address] PCP - General Internal Medicine 03/08/14 documented as of this encounter
--- OUTSIDE RECORDS SUMMARY | 2024-12-14 15:55 | XMS_ITS | Encounter Summary ---
Author Organization [employer] Address [address] 7t [place] [address] Care Team Providers Care Ammonium Nitrate Neutralizer Name Role Phone Adal Terrell MD Primary Care Provide r Encounter Details Date Type Department Care Team ([facility] st Contact Info) Description 11/09/2024 Telephone [facility] MEDICINE 230 [place], [place] [phone] Adal Terrell MD 230 [place] [address] Social History Tobacco Use Types Packs/Day Years [...] Description 02/24/2025 1:30 PM EDT Clinical Support [facility] CHC MED & PEDS 505 [place] [address] Marci Kennedy, RN 505 [place] [address] 03/24/2025 2:30 PM EDT Office Visit [facility] MEDICINE 230 [place] [address] Adal Terrell MD 230 [place] [address] documented as of this encounter Visit Diagnoses Not on filedocumented in this encounter Additional Health Concerns Assessment Noted Time PHQ-9 Depression Total Score: 5 01/27/20 24 10:54 AM EDT documented as of this encounter Care Teams Ammonium Nitrate Neutralizer Relationship Specialty Start Date End Date Adal Terrell MD [address] [place] [address] PCP - General Internal Medicine 03/08/14 documented as of this encounter
--- OUTSIDE RECORDS SUMMARY | 2024-12-14 15:55 | XMS_ITS | Encounter Summary ---
Author Organization [employer] Address [address] 7t [place] [address] Care Team Providers Care Cloth Shrinking Machine Operator Helper Name Role Phone Adal Terrell MD Primary Care Provide r Reason for Visit * Reason Onset Date Comments Nurse Triage 03/05/2024 Encounter Details Date Type Department Care Team ([facility] st Contact Info) Description 03/05/[address] [facility] MEDICINE 230 [place] [address] Adal Terrell MD 230 [place] [address] Nurse Triage Social History Tobacco Use Types [...] [facility] CHC MED & PEDS 505 [place] [address] Marci Kennedy, RN 505 [place] [address] 03/24/2025 2:30 PM EDT Office Visit [facility] MEDICINE 230 [place] [address] Adal Terrell MD 230 [place] [address] documented as of this encounter Visit Diagnoses Not on filedocumented in this encounter Additional Health Concerns Assessment Noted Time PHQ-9 Depression Total Score: 5 01/27/20 24 10:54 AM EDT documented as of this encounter Care Teams Cloth Shrinking Machine Operator Helper Relationship Specialty Start Date End Date Adal Terrell MD 230 [place] [address] PCP - General Internal Medicine 03/08/14 documented as of this encounter
--- OUTSIDE RECORDS SUMMARY | 2024-12-14 15:55 | XMS_ITS | Encounter Summary ---
Author Organization [employer] Address [address] [facility] 7t [place] [address] Care Team Providers Care Associate Professor Of Philosophy Name Role Phone Adal Terrell MD Primary Care Provide r Reason for Visit * Reason Onset Date Comments Med Refill 01/02/2023 Encounter Details Date Type Department Care Team ([facility] st Contact Info) Description 01/02/2023 Telephone [facility] MEDICINE 230 [place] [address] Adal Terrell MD 230 [place] [address] Med Refill Social History Tobacco Use Types [...] 1:30 PM EDT Clinical Support [facility] MED & PEDS 505 [place] [address] Marci Kennedy, RN 505 [place] [address] 03/24/2025 2:30 PM EDT Office Visit [facility] MEDICINE 230 [place] [address] Adal Terrell MD 230 [place] [address] documented as of this encounter Visit Diagnoses Not on filedocumented in this encounter Additional Health Concerns Assessment Noted Time PHQ-9 Depression Total Score: 0 09/10/19 23 11:00 AM EST documented as of this encounter Care Teams Associate Professor Of Philosophy Relationship Specialty Start Date End Date Adal Terrell MD 230 [place] [address] PCP - General Internal Medicine 03/08/14 documented as of this encounter
--- OUTSIDE RECORDS SUMMARY | 2024-12-14 15:55 | XMS_ITS | Encounter Summary ---
Author Organization [employer] Address [address] 7[address] [place] [address] Care Team Providers Care Administrative Coordinator Name Role Phone Adal Terrell MD Primary Care Provide r Reason for Visit * Reason Onset Date Comments Appointment Request 10/29/2022 Encounter Details Date Type Department Care Team ([facility] st Contact Info) Description 10/29/2022 Telephone [facility] MEDICINE [address] [place] [address] Adal Terrell MD 230 [place] [address] Appointment Request Social History Tobacco Use Types [...] only with him. Please contact pt at [phone] documented in this encounter Plan of Treatment Upcoming Encounters Date Type Department Care Team (Late st Contact Info) Description 02/24/2025 1:30 PM EDT Clinical Support [facility] CHC MED & PEDS 505 [place] [address] Marci Kennedy, RN 505 [place] [address] 03/24/2025 2:30 PM EDT Office Visit [facility] MEDICINE [address] [place] [address] Adal Terrell MD 230 [place] [address] documented as of this encounter Visit Diagnoses Not on filedocumented in this encounter Additional Health Concerns Assessment Noted Time PHQ-9 Depression Total Score: 0 09/10/19 23 11:00 AM EST documented as of this encounter Care Teams Administrative Coordinator Relationship Specialty Start Date End Date Adal Terrell MD 230 [place] [address] PCP - General Internal Medicine 03/08/14 documented as of this encounter"
--- OUTSIDE RECORDS SUMMARY | 2024-12-14 15:55 | XMS_ITS | Encounter Summary ---
Author Organization [employer] Address [address] 7t [place] [address] Care Team Providers Care It Program Auditor Name Role Phone Adal Terrell MD Primary Care Provide r Reason for Visit * Reason Onset Date Comments Med Refill 03/08/2024 Encounter Details Date Type Department Care Team ([facility] st Contact Info) Description 03/08/2024 Telephone [facility] MEDICINE 230 [place] [address] Adal Terrell MD 230 [place] [address] Med Refill Social History Tobacco Use Types [...] your housing situation today? I have amada edmnod 01/27/[address] you li [...] immediate release tablet To be sent to: [facility] documented in this encounter Plan of Treatment Upcoming Encounters Date Type Department Care Team (Late st Contact Info) Description 02/24/2025 1:30 PM EDT Clinical Support [facility] MED & PEDS 505 [place] [address] Marci Kennedy RN 505 [place] [address] 03/24/2025 2:30 PM EDT Office Visit [facility] MEDICINE 230 [place] [address] Adal Terrell MD 230 [place], [place] [phone] documented as of this encounter Visit Diagnoses Not on filedocumented in this encounter Additional Health Concerns Assessment Noted Time PHQ-9 Depression Total Score: 5 01/27/20 24 10:54 AM EDT documented as of this encounter Care Teams It Program Auditor Relationship Specialty Start Date End Date Adal Terrell MD 230 [place] [address] PCP - General Internal Medicine 03/08/14 documented as of this encounter
--- OUTSIDE RECORDS SUMMARY | 2024-12-14 15:55 | XMS_ITS | Encounter Summary ---
Author Organization [employer] Address [address] 7t [place] [address] Care Team Providers Care Caustic Purification Operator Name Role Phone Adal Terrell MD [...] 1:30 PM EDT Clinical Support [facility] MED & PEDS 505 [place] [address] Marci Kennedy, YANET 505 [place] [address] 03/24/2025 2:30 PM EDT Office Visit [facility] MEDICINE 230 [place] [address] Adal Terrell MD 230 [place] [address] documented as of this encounter Visit Diagnoses Not on filedocumented in this encounter Additional Health Concerns Assessment Noted Time PHQ-9 Depression Total Score: 0 12/01/19 25 10:42 AM EDT documented as of this encounter Care Teams Caustic Purification Operator Relationship Specialty Start Date End Date Adal Terrell MD [address] [place] [address] PCP - General Internal Medicine 03/08/14 documented as of this encounter
--- OUTSIDE RECORDS SUMMARY | 2024-12-14 15:55 | XMS_ITS | Encounter Summary ---
Author Organization [employer] Address [address] 7t h Floor [place] [id number] Care Team Providers Care Accident Report Clerk Name Role Phone Adal Terrell MD Primary Care Provide r Encounter Details Date Type Department Care Team ([facility] st Contact Info) Description 12/14/2024 Patient Outreach [facility] MEDICINE 230 [place] [address] Adal Terrell MD 230 [place] [address] Social History Tobacco Use Types Packs/Day Years [...] MEDICAL CENTER CHC MED & PEDS 505 [place] [address] Marci Kennedy, RN 505 [place] [address] 03/24/2025 2:30 PM EDT Office Visit [facility] MEDICINE 230 [place] [address] Adal Terrell MD 230 [place] [address] documented as of this encounter Visit Diagnoses Not on filedocumented in this encounter Additional Health Concerns Assessment Noted Time PHQ-9 Depression Total Score: 0 12/01/19 10:42 AM EDT documented as of this encounter Care Teams Accident Report Clerk Relationship Specialty Start Date End Date Adal Terrell MD [address] [place] [address] PCP - General Internal Medicine 03/08/14 documented as of this encounter
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
--- OUTSIDE RECORDS SUMMARY | 2024-12-14 15:56 | XMS_ITS | Encounter Summary ---
Author Organization [employer] Address [address] 7t [place] [address] Care Team Providers Care Laundry Clerk Name Role Phone Adal Terrell MD Primary Care Provide r Reason for Visit * Reason Onset Date Comments Med Refill 12/08/2024 Encounter Details Date Type Department Care Team ([facility] st Contact Info) Description 12/08/2024 Telephone [facility] MEDICINE 230 [place] [address] Adal Terrell MD 230 [place] [address] Med Refill Social History Tobacco Use Types [...] immediate release tablet To be sent to: [id number] [place], [place] - [address] [facility] documented in this encounter Plan of Treatment Upcoming Encounters Date Type Department Care Team (Late st Contact Info) Description 02/24/2025 1:30 PM EDT Clinical Support [facility] CHC MED & PEDS 505 [place] [address] Marci Kennedy RN 505 [place] [address] 03/24/2025 2:30 PM EDT Office Visit [facility] MEDICINE 230 [place], [place] [phone] Adal Terrell MD [address] [place], [place] [phone] documented as of this encounter Visit Diagnoses Not on filedocumented in this encounter Additional Health Concerns Assessment Noted Time PHQ-9 Depression Total Score: 0 12/01/19 25 10:42 AM EDT documented as of this encounter Care Teams Laundry Clerk Relationship Specialty Start Date End Date Adal Terrell MD 230 [place] [address] PCP - General Internal Medicine 03/08/14 documented as of this encounter
--- OUTSIDE RECORDS SUMMARY | 2024-12-14 15:56 | XMS_ITS | Encounter Summary ---
Author Organization [employer] Address [address] 7t h Floor [place] [id number] Care Team Providers Care Sharepoint Developer Name Role Phone Adal Terrell MD Primary Care Provide r Reason for Visit * Reason Onset Date Comments Results 08/13/2023 Encounter Details Date Type Department Care Team ([facility] Contact Info) Description 08/13/2023 Telephone [facility] MEDICINE 230 [place] [address] Adal Terrell MD 230 [place] [address] Results Social History Tobacco Use Types Packs/Day [...] Description 02/24/2025 1:30 PM EDT Clinical Support [facility] CH[facility] MED & PEDS 505 [place] [address] Marci Kennedy, YANET 505 [place] [address] 03/24/2025 2:30 PM EDT Office Visit [facility] MEDICINE 230 [place] [address] Adal Terrell MD [address] [place] [address] documented as of this encounter Visit Diagnoses Not on filedocumented in this encounter Additional Health Concerns Assessment Noted Time PHQ-9 Depression Total Score: 0 09/10/19 23 11:00 AM EST documented as of this encounter Care Teams Sharepoint Developer Relationship Specialty Start Date End Date Adal Terrell MD 230 [place] [address] PCP - General Internal Medicine 03/08/14 documented as of this encounter
--- OUTSIDE RECORDS SUMMARY | 2024-12-14 15:56 | XMS_ITS | Encounter Summary ---
Author Organization [employer] Address [address] 7t [place] [address] Care Team Providers Care Back Tender Cylinder Name Role Phone Adal Terrell MD Primary Care Provide r Reason for Visit * Reason Comments Med Refill Encounter Details Date Type Department Care Team ([facility] st Contact Info) Description 12/08/2024 Refill [facility] MEDICINE 230 [place], [place] [phone] Adal Terrell MD 230 [place] [address] Social History Tobacco Use Types Packs/Day Years [...] Upcoming Encounters Date Type Department Care Team ([facility] st Contact Info) Description 02/24/2025 1:30 PM EDT Clinical Support [facility] CHC MED & PEDS 505 [place] [address] Marci Kennedy, YANET 505 [place] [address] 03/24/2025 2:30 PM EDT Office Visit [facility] MEDICINE 230 [place] [address] Adal Terrell MD 230 [place] [address] documented as of this encounter Visit Diagnoses Not on filedocumented in this encounter Additional Health Concerns Assessment Noted Time PHQ-9 Depression Total Score: 0 12/01/19 25 10:42 AM EDT documented as of this encounter Care Teams Back Tender Cylinder Relationship Specialty Start Date End Date Adal Terrell MD [address] [place] [address] PCP - General Internal Medicine 03/08/14 documented as of this encounter
--- OUTSIDE RECORDS SUMMARY | 2024-12-14 15:56 | XMS_ITS | Encounter Summary ---
Author Organization [employer] Address [address] 7t [place] [address] Care Team Providers Care Baler Operator Name Role Phone Adal Terrell MD Primary Care Provide r Encounter Details Date Type Department Care Team (Late st Contact Info) Description 12/10/2024 Patient Outreach [facility] CHC MED & PEDS [address] [place], [place] [phone] Adal Terrell MD 230 [place] [address] Social History Tobacco Use Types Packs/Day Years [...] Description 02/24/2025 1:30 PM EDT Clinical Support [facility] CHC MED & PEDS 505 [place] [address] Marci Kennedy, RN 505 [place] [address] 03/24/2025 2:30 PM EDT Office Visit [facility] MEDICINE 230 [place] [address] Adal Terrell MD [address] [place] [address] documented as of this encounter Visit Diagnoses Not on filedocumented in this encounter Additional Health Concerns Assessment Noted Time PHQ-9 Depression Total Score: 0 12/01/19 25 10:42 AM EDT documented as of this encounter Care Teams Baler Operator Relationship Specialty Start Date End Date Adal Terrell MD [address] [place] [address] PCP - General Internal Medicine 03/08/14 documented as of this encounter
--- OUTSIDE RECORDS SUMMARY | 2024-12-14 15:56 | XMS_ITS | Encounter Summary ---
Author Organization [employer] Address [address] 7t [place] [address] Care Team Providers Care Emblem Fuser Tender Name Role Phone Adal Terrell MD Primary Care Provide r Reason for Visit * Reason Onset Date Comments Med Refill 12/08/2024 Encounter Details Date Type Department Care Team ([facility] st Contact Info) Description 12/08/2024 Refill [facility] CHC MED & PEDS 505 [place] [address] Marci Kennedy, RN 505 [place], [place] Chronic right-sided low back pain with [...] 02/24/2025 1:30 PM EDT Clinical Support [facility] CHC MED & PEDS 505 [place] [address] Marci Kennedy, RN 505 [place] [address] 03/24/2025 2:30 PM EDT Office Visit [facility] MEDICINE 230 [place] [address] Adal Terrell MD 230 [place] [address] documented as of this encounter Visit Diagnoses Diagnosis Chronic right-sided low back pain with right-sided sciatica documented in this encounter Additional Health Concerns Assessment Noted Time PHQ-9 Depression Total Score: 0 12/01/19 25 10:42 AM EDT documented as of this encounter Care Teams Emblem Fuser Tender Relationship Specialty Start Date End Date Adal Terrell MD [address] [place] [address] PCP - General Internal Medicine 03/08/14 documented as of this encounter
--- OUTSIDE RECORDS SUMMARY | 2024-12-14 15:56 | XMS_ITS | Encounter Summary ---
Author Organization [employer] Address [address] [place] [address] Care Team Providers Care Carpentry Supervisor Name Role Phone Adal Terrell MD Primary Care Provide r Encounter Details Date Type Department Care Team ([facility] st Contact Info) Description 11/05/2024 Orders Only [facility] [address] [place], [place] [phone] ProviderTong MD Social History Tobacco Use Types [...] your housing situation today? I have amadamatt emdond 01/27/[address] you li [...] Description 02/24/2025 1:30 PM EDT Clinical Support [facility] [address] [place] [phone] Marci Kennedy, RN [address] [place] [phone] 03/24/2025 2:30 PM EDT Office Visit [facility] [address] [place] [address] Adal Terrell MD [address] [place], [place] [phone] documented as of this encounter Procedures Procedure Name Priority Date/Time Associated Diagnosis Comments IRON AND TOTAL IRON BINDING CAPACITY Routine 11/05/2024 2:58 PM EDT CBC Routine 11/05/2024 2:58 PM EDT FERRITIN Routine 11/05/2024 2:58 PM EDT HM COLONOSCOPY Routine 11/02/2024 9:48 AM EDT documented in this encounter Results * Ferritin (11/05/2024 2:58 PM EDT) Ferritin 134 10 - 250 ng/mL [facility] 11/05/2024 2:58 PM EDT 11/05/2024 2:58 PM EDT us Generic External Data Provider LAB BLOOD ORDERAB LES Final Result Performing Organization Address [facility] Co de Phone Number [facility] [address] [place] [phone] * (ABNORMAL) Iron And Total Iron Binding Capacity (11/05/2024 2:58 PM EDT) [facility] Iron 35 30 - 160 mcg/dL [facility] Total Iron Binding Capacity 302 228 - 428 mcg/dL [facility] Percent Iron Saturation 12(L) 15 - 50 % [facility] Unsaturated Iron Binding 267 ug/dL [facility] 11/05/2024 2:58 PM EDT 11/05/2024 2:58 PM EDT Generic External Data Provider LAB BLOOD ORDERAB LES Final Result Performing Organization Address [facility] de Phone Number [facility] [address] [place] [phone] * (ABNORMAL) CBC (11/05/2024 2:58 PM EDT) [facility] White Blood Count 14.9(H) 4.8 - 10.8 X10*3/uL [facility] Red Blood Count 4.57 4.20 - 5.50 X10*6/uL [facility] Hemoglobin 12.9 12.0 - 16.0 g/dl [facility] Hematocrit 38.2 37.0 - 47.0 % [facility] Mean Corpuscular Volume 83.6 80.0 - 98.0 fL [facility] Mean Corpuscular Hemoglobin 28.2 27.0 - 33.0 pg [facility] Mean Corpuscular HGB Conc 33.8 31.0 - 35.0 g/dl [facility] Red Cell Distribution Width 15.6 11.0 - 16.0 % [facility] Platelet Count 352 160 - 400 X10*3/uL [facility] Mean Platelet Volume 9.4 9.4 - 12.3 fL [facility] NRBC Pct Auto 0.0 0.0 - 0.2 /100WBC [facility] NRBC Abs Auto 0.000 0.0 - 0.012 X10*3/uL [facility] 11/05/2024 2:58 PM EDT 11/05/2024 2:58 PM EDT us Generic External Data Provider LAB BLOOD ORDERAB LES Final Result [facility] [address] [place] [phone] * Hm Colonoscopy (11/02/2024 9:48 AM [...] documented as of this encounter Care Teams Carpentry Supervisor Relationship Specialty Start Date End Date Adal Terrell MD [address] [place] [phone] PCP - General Internal Medicine 03/08/14 documented as of this encounter
--- OUTSIDE RECORDS SUMMARY | 2024-12-14 15:56 | XMS_ITS ---
Author Organization [employer] Address [address] [facility] [address] [place] [address] Care Team Providers Care Distresser Name Role Phone Adal Terrell MD Primary Care Provide r CM Complex Status:Enrolled (Active) Start date:11/29/2024 Enrollment date:11/30/2024 Enrollment reason:ADT Feed Overview ADT- [facility] ED 11/27/24 Case Team Name Relationship Phone Dee Tavarez RN(Responsible Staff) Registered Nurse [phone] Continued Care and Services Coordination
--- OUTSIDE RECORDS SUMMARY | 2024-12-14 15:56 | XMS_ITS | Clinical Summary ---
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 [facility] Red Cell Distribution Width 15.6 11.0 - 16.0 % [facility] Platelet Count 352 160 - 400 X10*3/uL [facility] Mean Platelet Volume 9.4 9.4 - 12.3 fL [facility] NRBC Pct Auto 0.0 0.0 - 0.2 /100WBC [facility] NRBC Abs Auto 0.000 0.0 - 0.012 X10*3/uL [facility] 11/05/2024 2:58 PM EDT 11/05/2024 2:58 PM EDT Generic External Data Provider LAB BLOOD ORDERAB LES Final Result Performing Organization Address [facility]/ZIP Co de Phone Number [facility] [address] [place] [phone] * Ferritin (11/05/2024 2:58 PM EDT) Ferritin 134 10 - 250 ng/mL [facility] 11/05/2024 2:58 PM EDT 11/05/2024 2:58 PM EDT Generic External Data Provider LAB BLOOD ORDERAB LES Final Result Performing Organization Address [facility] Co de Phone Number [facility] [address] [place] [address] [phone] * Hm Colonoscopy (11/02/2024 9:48 AM EDT) Colonoscopy Normal Normal Narrative Georgiana Longo - 11/02/2024 9:48 AM EDT See external hospital admission note on 11/02/2024 . Repeat in 6-12 months due to poor prep Historical Provider HEALTH MAINTENANCE Edited Result - Final * Hematoxylin and Eosin Stain (11/02/2024 8:23 AM EDT) 11/02/2024 8:23 AM EDT 11/02/2024 9:54 AM EDT Narrative [facility] - 11/09/2024 1:53 PM EDT ----- ------- Name: Nisa Hall ?Age/Sex: 48/F ? : 1975 Unit#: [id number] ?? Attend Dr: Vee Marques MD ?Re11/02/24 ?Status: DEP SDC ? Location: HO.SSS ?Disch: ? ----- ------- SPEC : [id number] ? RECD: 11/02/24 ? STATUS: ??SOUT ? REQ NUM: [id number] ? JAMES: 11/02/24-822 ? SUBM DR: Vee [...] Signed (signature on file) Gisella Celso 11/09/24 515 ? ----- ------- ? Diagnosis ?? A. [...] Hall ?Age/Sex: 48/F ? : 1975 Unit#: [id number] ?? Attend Dr: Vee Marques MD ?Re11/02/24 ?Status: DEP SDC ? Location: HO.SSS ?Disch: ? ----- ------- SPEC : [id number] ? RECD: 11/02/24-953 ? STATUS: ??SOUT ? REQ NUM: [id number] ? JAMES: 11/02/24-822 ? SUBM DR: Vee [...] Hall ?Age/Sex: 48/F ? : 1975 Unit#: [id number] ?? Attend Dr: Vee Marques MD ?Re11/02/24 ?Status: DEP SDC ? Location: HO.SSS ?Disch: ? ----- ------- SPEC : [id number] ? RECD: 11/02/24 ? STATUS: ??SOUT ? REQ NUM: [id number] ? JAMES: 11/02/24 ? SUBM DR: Vee Marques MD ? ENTERED: ??11/02/24-1005 ?SP TYPE: Surgical ? OTHR DR: Adal Alves MD ?? ORDERED: ??HE Stain/18, Gross Micro L4/6, IHC/2, Special st. 2, H. pylori/2, AB/PAS ? COMMENTS: Block C sent to [facility] for Gastrin IHC on 11/04/24. ? Gross Description ?(Continued) CEDS Special studies ordered and performed at [facility]: Immunostain for H. pylori on B1; AB/PAS stain on C1. Special studies ordered and performed at [facility]: Immunostain for gastrin on C1. Copies To: ?? Adal Alves MD ?? [facility] ?? [address] ?? [place] [address] ?? [phone] ?? Vee Marques MD ?? [facility] ?? [address] ?? [place] [address] ?? [phone] ?? [email or web address] ----- ------- Signed (signature on file) Gisella Celso 11/04/241913 ? ----- ------- ? END OF REPORT ? us Generic External Data Provider LAB BLOOD ORDERAB LES Final Result [facility] [address] [place] [phone] [phone] * (ABNORMAL) Lipid Panel, Standard (09/10/2024 11:04 AM EST) Triglycerides 91 <150 mg/dL [facility] Comment:Desirable Triglyceri de: less than 150 mg/dLBorderline High Triglyceride 150-199 mg/dLHigh Triglyceride: 200-499 mg/dLVery High Triglyceride: greater than or equal to 5OO mg/dL Cholesterol 155 <200 mg/dL [facility] Comment:Desirable Cholestero l: less than 200 mg/dLBorderline High Cholesterol: 200-239 mg/dLHigh Cholesterol: greater than 239 mg/dL LDL Cholesterol Calculated 108(H) <100 mg/dL [facility] Comment:Desirable LDL: less than 100 mg/dLNear Optimal/Above Optimal LDL: 110- 129 mg/dLBorderline High LDL: 130-159 mg/dLHigh LDL: 160-189 mg/dLVery High LDL: greater than or equal to 190 mg/dL HDL Cholesterol 29(L) >40 mg/dL [facility] Comment:Desirable HDL: great er than 40 mg/dL Note: This HDL assay may give artificially low results in patients with liver disease. Blood Venous blood specimen / Unknown 09/10/2024 11:04 AM EST 09/10/2024 11:04 AM EST us Adal Mccarthy MD LAB BLOOD ORDERABLES Final Result Performing Organization Address City/[facility] Co de Phone Number [facility] [address] [place] [phone] * Hemoglobin A1c (09/01/2024 3:07 PM EST) Hemoglobin A1c 5.9 <6.0 % [facility] Comment:Hemoglobin A1C Refer ence Range Adults: 4.8 - 6.0 % Non diabetic: < 6.0 % Goal: < 7.0 %Additional Action Suggested: > 8.0 %Note: Hemoglobin A1c results are invalid for patients with abnormal amounts of HbF. Blood transfusions may impact the HbA1c concentration in the patient sample. Estimated Average Glucose 123 mg/dL [facility] Comment:eAG = Estimated ave rage glucose which is %A1C expressed asaverage glucose, using the formula of the I0J-RrggcpwPjizkms Glucose study (ADAG), Diabetes Care, Vol.31,#8,Feb. 2007 09/01/2024 3:07 PM EST 09/01/2024 3:07 PM EST us Generic External Data Provider LAB BLOOD ORDERAB LES Final Result Performing Organization Address [facility] Co de Phone Number [facility] [address] [place] [phone] [phone] * BI Mammogram Screening Tomosynthesis Bilateral (08/26/2024 2:40 PM EST) Anatomical Region Laterality Modality Breast Bilateral Mammography 08/26/2024 2:40 PM EST Narrative 09/04/2024 7:21 PM EST ? [facility] ? [address] ?[place] [address] ? Mammography Report ? Signed ? Patient: Hall,Nisa ?MR#: [id number] ?? [id number] ? : 1975 ?Acct:[id number] ? Age/Sex: 48 / F ?ADM Date: 08/26/24 ? Loc: HO.MAMMO ? Attending Dr: Adal Alves MD ? Ordering Physician: Adal Alves MD ?Resu ?? lts: 2Benign Findings ? Date of Service: 08/26/24 ?Follow Up: 1 Year From Orig ?? inal Mammogram ? Procedure(s): MM tomosynthesis screening BI ?? Accession Number(s): [id number] ? cc: Adal Alves MD ? EXAMINATION: [...] DD/ 1440 ? TD/TT: 08/26/24 1450 ? Operations Specialist: ? Procedure Note Rosaura, Ayo - 09/04/2024 [facility] [address] [place] [address] Mammography Report Signed Patient: Nisa HallMR#: [id number] : 1975Acct:[id number] Age/Sex: 48 / FADM Date: 08/26/24 Loc: HO.MAMMO Attending Dr: Adal Alves MD Ordering Physician: Adal Alves MDResu lts: 2Benign Findings Date of Service: 08/26/24Follow Up: 1 Year From Orig inal Mammogram Procedure(s): MM tomosynthesis screening BI Accession Number(s): [id number] cc: Adal Alves MD EXAMINATION: MM SCREENING [...] 09/04/24 1918 DD/ 1440 TD/TT: 08/26/24 1450 Operations Specialist: Adal Mccarthy MD IMG BI PROCEDURES [...] a test for HCV RNA (test code 14102) is suggested. ?? For additional information please refer to http://education.[employer]ee[employer]/faq/DKD57g6 (This link is being provided for informational/ educational purposes only.) ?? 02/05/2022 10:0 3 AM EDT Adal Mccarthy MD HISTORICAL/NON ORDERA BLE LABS Final Result [facility] [address] * HIV 1/2 ANTIGEN/ANTIBODY,FOURTH GENERATION W/RFL (02/05/2022 9:38 AM EDT) HIV-1/2 ANTIGEN AND ANTIBODIES, 4TH GENERATION W/ REFLEX [facility] Comment: TEST NOT PERFORMED ?? No serum received. 02/05/2022 9:38 AM EDT Adal Mccarthy MD LAB BLOOD ORDERABLES Final Result [facility] [address] [place] [address], * HPV mRNA E6/E7 (06/04/2018 12:00 AM EST) HPV mRNA E6/E7 Not Detected NOT DETECTED [facility] Comment: This test was performed using the APTIMA(R) HPV Assay ([employer] This assay detects E6/E7 viral messenger RNA (mRNA) from 14 high-risk HPV types (16,18,31,33,35,39,45,51, 52,56,58,59,66,68). For additional information please refer to: http://education.[employer]/faq/XKS328f7 (This link is being provided for informational/ educational purposes only.) The analytical performance characteristics of this assay have been determined by [employer] [place], [place]. The modifications have not been cleared or approved by the FDA. This assay has been validated pursuant to the CLIA regulations and is used for clinical purposes. Test Performed by [facility], [place] [facility], [address] [place] [address] Marcos Brasher M.D., Ph.D., Director of Laboratories , CLIA [id number] Please note: ??Effective 04/08/2016, HPV testing will be performed using [employer] APTIMA test which targets mRNA. Detecting mRNA instead of DNA, as in older methods, offers significant improvements in specificity. 06/04/2018 Lisa Goldstein [place] HISTORICAL/NON ORDERABLE LABS Final Result [facility] [address] from Last 3 Months or Most Recently Relevant to Health Maintenance [facility] Care Teams Financial Foundations Associate Relationship Specialty Start Date End Date Adal Terrell MD [address] [place] [phone] PCP - General Internal Medicine 03/08/14
--- OUTSIDE RECORDS SUMMARY | 2024-12-14 15:56 | XMS_ITS | Encounter Summary ---
Author Organization [employer] Address [address] [facility] 7t [place] [address] Care Team Providers Care Safety Investigator Name Role Phone Adal Terrell MD Primary Care Provide r Reason for Referral * Consultation (Routine) - Authorized Specialty Diagnoses / Procedures Referred By Contac t Referred To Contact Nutrition Diagnoses Obesity (BMI 30-39.9) Adal Terrell MD [address] [place] [phone] Phone: tel: fax: Referral ID Status Reason Start Date Expiration Date Visits Requested Visits Authorized [id number] Authorized Consult and Treat 12/14/2024 12/14/2025 1 1 * Imaging (Routine) - Authorized Specialty Diagnoses / Procedures Referred By Contac t Referred To Contact Radiology Diagnoses Chronic right-sided low back pain with right-sided sciatica Procedures MR Lumbar Spine w/o Contrast Adal Terrell MD [address] [place] [address] Phone: tel: fax: [facility] [address] [place] [address] Phone: tel: fax: Referral ID Status Reason Start Date Expiration Date V isits Requested Visits Authorized [id number] Authorized 12/14/2024 12/14/2025 1 1 Reason for Visit * Reason Comments Follow-up asthma, f/u CTS. [facility] 11/29 DX: Polynephritis Encounter Details Date Type Department Care Team (Latest Contact Info) Description 12/14/2024 1:15 PM EDT Office Visit [facility] [address] [place] [address] Adal Terrell MD [address] [place] [address] Gastroesophageal reflux disease with esophagitis without hemorrhage [...] who presents for Follow-up (asthma, f/u CTS. [facility] 11/29 DX: Polynephritis). Patient is here [...] of gastritis. Pt subsequently had an EGD EGD/Hunt 11/02/2024 Impression: 1. Inlet patch 2. Normal esophagus (biopsy) 3. R/o atrophic gastritis (biopsy) 4. Normal duodenum (biopsy) 5. Poor prep 6. 1 polyp removed 7. Internal hemorrhoids GI Recommendations: * Follow-up path results * Repeat colonoscopy within 6-12 months due to poor prep Lateral epicondylitis of left elbow Spine [facility]tr PA sent patient to [facility] Irritable bowel syndrome with diarrhea Under the care of Gastroenterology, last seen 09/01/2024. She was recommended EGD/Hunt EGD/Hunt 11/02/2024 Impression: 1. Inlet patch 2. Normal [...] for a repeat previously Colonoscopy: 2019 at [facility], repeat Hunt 11/02/2024 Impression: 5. Poor prep 6. 1 polyp removed 7. Internal hemorrhoids GI Recommendations:?? * Follow-up path results * Repeat colonoscopy within 6-12 months due to poor prep Transaminitis Recurrent urinary tract infection Pt with chronic c/o recurrent UTIs, Evaluated by Urology in the past Pt was seen by ID specialist Dr Paula Brito She is on Macrobid 100 mg po daily Regional Director Of Finance recommended she be seen by Urogynecology Amy [...] Center 02/24/2025 1:30 PM Marci Kennedy RN [facility] 03/24/2025 2:30 PM Adal Mccarthy MD MEDICINE [facility] [1] Allergies Allergen Reactions Amitriptyline Unknown [...] is on Macrobid 100 mg po daily Regional Director Of Finance recommended she be seen by Urogynecology Amy Franco * Assessment & Plan Note - Adal Mccarthy MD - 12/14/2024 1:08 PM EDT Associated Problem(s): Preventative health care Mammogram: 08/26/2024 Normal Pap Smear: Pt had a partial Hysterectomy she still has a cervix, Pap 05/2018 was Normal. Referred for a repeat previously Colonoscopy: 2019 at [facility], repeat Hunt 11/02/2024 Impression: 5. Poor prep 6. 1 [...] Gastroenterology, last seen 09/01/2024. She was recommended EGD/Hunt EGD/Hunt 11/02/2024 Impression: 1. Inlet patch 2. Normal [...] of gastritis. Pt subsequently had an EGD EGD/Hunt 11/02/2024 Impression: 1. Inlet patch 2. Normal [...] Description 02/24/2025 1:30 PM EDT Clinical Support [facility] [address] [place] [address] Marci Kennedy, YANET [address] [place] [address] 03/24/2025 2:30 PM EDT Office Visit [facility] [address] [place] [address] Adal Terrell MD [address] [place] [address] Scheduled Orders Name Type Priority Associated Diagnoses [...] Expires: 12/14/2025 documented as of this encounter Procedures Procedure Name Priority Date/Time Associated Diagnosis Comments URINALYSIS, COMPLETE, WITH REFLEX TO CULTURE Routine 12/14/2024 2:12 PM EDT Concern about STI in female without diagnosis documented in this encounter Results * Urinalysis, Complete, with Reflex to Culture (12/14/2024 2:12 PM EDT) Color Urine Yellow [facility] Appearance Urine Clear [facility] PH 6.0 5.0 - 9.0 [facility] Glucose Urine UA Negative Negative mg/dL [facility] Urine Blood Negative Negative [facility] Specific [place] - Urine 1.020 1.005 - 1.025 [facility] Urine Protein Negative Neg-Trace mg/dL [facility] Urine Ketones Negative Negative mg/dL [facility] Nitrite Urine Negative Negative [facility] Leukocyte Esterase Urine Negative Negative [facility] RBC Urine 0-2 0 - 2 /HPF [facility] Urine WBC 0-5 0 - 5 /HPF [facility] Urine Squamous Epithelial Cell 3-5 0 - 2 /HPF [facility] Urine Bacteria None Seen None Seen [facility] Hyaline Casts, Urine 0-2 0 - 2 /LPF [facility] Urine 12/14/2024 2:12 PM EDT 12/14/2024 3:13 PM EDT Narrative [facility] - 12/14/2024 3:32 PM EDT Urine, Clean Catch Adal Mccarthy MD LAB URINE ORDERABLES Final Result Performing Organization Address City/State/[facility] Co de Phone Number [facility] [address] [place] [phone] documented in this encounter Visit Diagnoses Diagnosis Gastroesophageal reflux [...] as of this encounter Care Teams Safety Investigator Relationship Specialty Start Date End Date Adal Terrell MD [address] [place] [phone] PCP - General Internal Medicine 03/08/14 documented as of this encounter
--- OUTSIDE RECORDS SUMMARY | 2024-12-14 15:56 | XMS_ITS | Encounter Summary ---
Author Organization [email or web address] Address [address] [facility] [address] 7t [place] [address] Care Team Providers Care Commercial Pilot Name Role Phone Adal Terrell MD Primary Care Provide r Reason for Visit * Reason Comments Med Refill Encounter Details Date Type Department Care Team ([facility] st Contact Info) Description 07/03/2023 Refill [facility] [address] [place], [place] [phone] Adal Terrell MD [address] [place] [address] Low vitamin D level Social History Tobacco [...] 1:30 PM EDT Clinical Support [facility] [address] [place] [address] Marci Kennedy, RN [address] [place] [address] 03/24/2025 2:30 PM EDT Office Visit [facility] [address] [place] [address] Adal Terrell MD [address] [place] [address] documented as of this encounter Visit Diagnoses Diagnosis Low vitamin D level documented in this encounter Additional Health Concerns Assessment Noted Time PHQ-9 Depression Total Score: 0 09/10/19 23 11:00 AM EST documented as of this encounter Care Teams Commercial Pilot Relationship Specialty Start Date End Date Adal Terrell MD [address] [place] [phone] PCP - General Internal Medicine 03/08/14 documented as of this encounter
--- OUTSIDE RECORDS SUMMARY | 2024-12-14 15:56 | XMS_ITS | Encounter Summary ---
Author Organization [employer] Address [address] [facility] [address]t h Floor [place] [phone] Care Team Providers Care Donor Services Specialist Name Role Phone Adal Terrell MD Primary Care Provide r Reason for Visit * Reason Onset Date Comments Letter for School/Work 12/12/2023 Appointment Request 12/12/2023 Encounter Details Date Type Department Care Team ([facility] st Contact Info) Description 12/12/2023 Telephone [facility] [address] [place] [address] Adal Terrell MD [address] [place] [address] Letter for School/Work; Appointment Request Social History [...] Description 02/24/2025 1:30 PM EDT Clinical Support [facility] [address] [place] [address] Marci Kennedy RN [address] [place] [address] 03/24/2025 2:30 PM EDT Office Visit [facility] [address] [place] [address] Adal Terrell MD [address] [place] [address] documented as of this encounter Visit Diagnoses Not on filedocumented in this encounter Additional Health Concerns Assessment Noted Time PHQ-9 Depression Total Score: 0 09/10/19 23 11:00 AM EST documented as of this encounter Care Teams Donor Services Specialist Relationship Specialty Start Date End Date Adal Terrell MD [address] [place] [address] PCP - General Internal Medicine 03/08/14 documented as of this encounter
--- OUTSIDE RECORDS SUMMARY | 2024-12-14 15:56 | XMS_ITS | Clinical Summary ---
Author Organization [facility] Address [address] [place] [address] Care Team Providers Care Small Offset Printer Name Role Phone Unavailable Primary Care Provider [...] patient's age to complete this topic Insurance [facility]
--- OUTSIDE RECORDS SUMMARY | 2024-12-14 15:56 | XMS_ITS ---
Author Organization [employer] Address [address] [facility] 7[address] [place] [address] Care Team Providers Care Radiology Clerk Name Role Phone Adal Terrell MD Primary Care Provide r [facility] Status:Enrolled (Active) Start date:11/29/2024 Enrollment date:11/29/2024 Enrollment reason:ADT Feed Overview ADT- [facility] ED 11/27/24 Case Team Name Relationship Phone Satish Bran(Responsible Staff) [phone] Continued Care and Services Coordination
--- OUTSIDE RECORDS SUMMARY | 2024-12-14 15:56 | XMS_ITS | Encounter Summary ---
Author Organization [employer] Address [address] [place] [address] Care Team Providers Care Handmade Tile Artist Name Role Phone Adal Terrell MD Primary Care Provide r Reason for Visit * Reason Comments Med Refill Encounter Details Date Type Department Care Team ([facility] st Contact Info) Description 07/23/2023 Refill [facility] [address] [place], [place] [phone] Adal Terrell MD [address] [place] [address] Chronic right-sided low back pain with right-sided [...] 1:30 PM EDT Clinical Support [facility] MED & PEDS [address] [place] [address] Marci Kennedy RN [address] [place] [address] 03/24/2025 2:30 PM EDT Office Visit [facility] [address] [place] [address] Adal Terrell MD [address] [place] [address] documented as of this encounter Visit Diagnoses Diagnosis Chronic right-sided low back pain with right-sided sciatica Sacroiliac joint dysfunction Nonallopathic lesion of sacral region, not elsewhere classified documented in this encounter Additional Health Concerns Assessment Noted Time PHQ-9 Depression Total Score: 0 09/10/19 23 11:00 AM EST documented as of this encounter Care Teams Handmade Tile Artist Relationship Specialty Start Date End Date Adal Terrell MD [address] [place] [address] PCP - General Internal Medicine 03/08/14 documented as of this encounter
== END 2024-12-14 15:19 | disposition home or self-care (01) ==
LOC: HO.HOS 14:33
PROVIDERS: PCP Internal Medicine
DX: M77.10 Lateral epicondylitis, unspecified elbow (principal)
CPT/HCPCS: 99213

== ENCOUNTER 2024-12-27 14:54 | Outpatient (REF) | payer MEDICAID, SELFPAY ==
[2024-12-27 15:11] LABS: MANUAL DIFF FLAG NO
[2024-12-27 15:57] LABS: Hematocrit 39.3 % (37.0-47.0); Hemoglobin 12.5 g/dl (12.0-16.0); Mean Corpuscular HGB Conc 31.8 g/dl (31.0-35.0); Mean Corpuscular Hemoglobin 27.8 pg (27.0-33.0); Mean Corpuscular Volume 87.3 fL (80.0-98.0); Mean Platelet Volume 9.9 fL (9.4-12.3); Platelet Count 370 X10*3/uL (160-400); Red Cell Distribution Width 14.9 % (11.0-16.0); White Blood Count 12.5 X10*3/uL (4.8-10.8)
[2024-12-27 15:59] LABS: Basophils Absolute Auto 0.1 X10*3/uL (0.0-0.2); Basophils Percent Auto 0.9 % (0-2); Eosinophils Absolute Auto 0.2 X10*3/uL (0.0-0.4); Eosinophils Percent Auto 1.8 % (0-4); Hematocrit 38.3 % (37.0-47.0); Hemoglobin 12.7 g/dl (12.0-16.0); Imm Gran Abs Auto 0.06 X10*3/uL (0.00-0.03); Imm Gran Pct Auto 0.5 % (0.0-0.4); Lymphocytes Absolute Auto 2.8 X10*3/uL (1.2-4.9); Lymphocytes Percent Auto 22.6 % (20-40); Mean Corpuscular HGB Conc 33.2 g/dl (31.0-35.0); Mean Corpuscular Hemoglobin 28.5 pg (27.0-33.0); Mean Corpuscular Volume 86.1 fL (80.0-98.0); Mean Platelet Volume 9.8 fL (9.4-12.3); Monocytes Absolute Auto 0.6 X10*3/uL (0.1-1.2); Neutrophils Absolute Auto 8.5 x10*3/uL (2.0-8.3); Neutrophils Percent Auto 69.2 % (45-73); Platelet Count 373 X10*3/uL (160-400); Red Blood Count 4.45 X10*6/uL (4.20-5.50); Red Cell Distribution Width 14.8 % (11.0-16.0); White Blood Count 12.3 X10*3/uL (4.8-10.8)
--- OUTSIDE RECORDS SUMMARY | 2024-12-27 16:10 | XMS_ITS | Clinical Summary ---
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
[2024-12-27 16:56] LABS: Iron 51 mcg/dL (30-160); Percent Iron Saturation 17 % (15-50); Total Iron Binding Capacity 309 mcg/dL (228-428); Unsaturated Iron Binding 258 ug/dL
[2024-12-27 17:05] LABS: Folate 8.4 ng/mL (> or = 4.0); Vitamin B12 429 pg/mL (200-900)
[2024-12-27 17:11] LABS: Ferritin 45 ng/mL (10-250); Vitamin D 25-OH Total 75.6 ng/mL (>30)
[2024-12-29 19:59] LABS: Intrinsic Factor Antibodies Negative (Negative)
[2024-12-31 13:43] LABS: Parietal Cell Antibody 115.9 Unit (<=20.0)
== END 2024-12-27 14:55 | disposition home or self-care (01) ==
LOC: HO.LAB 14:54
PROVIDERS: Internal Medicine Geriatric Medicine; PCP Internal Medicine; Visit Provider Internal Medicine
DX: R39.9 Unspecified symptoms and signs involving the genitourinary system (principal); K29.40 Chronic atrophic gastritis without bleeding
CPT/HCPCS: 36415; 82306; 82607; 82728; 82746; 83516; 83540; 85025; 85027; 86340; 87086

== ENCOUNTER 2024-12-28 14:18 | Outpatient (AMB) | payer MEDICAID, SELFPAY ==
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
[2024-12-28 14:42] VITALS: BP 124/74; PULSE 91; O2SAT 98; BMI 31.6
--- OUTSIDE RECORDS SUMMARY | 2024-12-28 16:08 | XMS_ITS | Clinical Summary ---
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
== END 2024-12-28 15:12 | disposition home or self-care (01) ==
LOC: HO.HSMS 14:19
PROVIDERS: PCP Internal Medicine; Visit Provider Physician Assistant Medical
DX: G47.34 Idiopathic sleep related nonobstructive alveolar hypoventilation (principal); R53.83 Other fatigue; G47.9 Sleep disorder, unspecified; G25.81 Restless legs syndrome; G47.61 Periodic limb movement disorder
CPT/HCPCS: 99214

== ENCOUNTER → 2024-12-28 14:18 | Outpatient (BNVA) | payer MEDICAID, SELFPAY | PROVIDERS: PCP Internal Medicine; Visit Provider Physician Assistant Medical | DX: G47.33 Obstructive sleep apnea (adult) (pediatric) (principal); G47.34 Idiopathic sleep related nonobstructive alveolar hypoventilation; R53.83 Other fatigue; G25.81 Restless legs syndrome; G47.61 Periodic limb movement disorder | CPT/HCPCS: 99212 ==

== ENCOUNTER 2024-12-29 13:37 | Outpatient (AMB) | payer MEDICAID, SELFPAY ==
--- NOTE | 2024-12-29 13:44 | A.OFFVIS_ITS ---
Vital Signs 12/29/24 13:55 Height 5 ft 3 in Weight 176 lb 5.917 oz BMI 31.2 BP 114/71 Blood Pressure Location Lt brachial Position Sitting Pulse 92 Intake Visit Reasons: 6w Intake Note: Nisa presents in the office as a 6 week follow up. CC: Pains in the stomach - lots of constant pains. No irregular bowel movements. She states cannabis helps with the pains in the stomach - the medications she was on she was too constipated so she had to stop taking it. Motor Vehicle Parts Interpreter Required: No Allergies levofloxacin [From Levaquin] Allergy (Intermediate, Verified 12/29/24 13:55) INTERACTED W/ANTI DEPRESSANT morphine [MORPHINE] Allergy (Intermediate, Verified 12/29/24 13:55) ITCHING, HIVES trazodone [TRAZODONE] Allergy (Mild, Verified 12/29/24 13:55) TACHYCARDIA amitriptyline Allergy (Unknown, Verified 12/29/24 13:55) Unknown citalopram Allergy (Unknown, Verified 12/29/24 13:55) Unknown escitalopram Allergy (Unknown, Verified 12/29/24 13:55) Unknown ibuprofen Allergy (Unknown, Verified 12/29/24 13:55) Unknown ketorolac Allergy (Unknown, Verified 12/29/24 13:55) Unknown sertraline Allergy (Unknown, Verified 12/29/24 13:55) Unknown Sulfa (Sulfonamide Antibiotics) Allergy (Unknown, Verified 12/29/24 13:55) Unknown topiramate Allergy (Unknown, Verified 12/29/24 13:55) Unknown trimethoprim Allergy (Unknown, Verified 12/29/24 13:55) Unknown zolpidem Allergy (Unknown, Verified 12/29/24 13:55) Unknown NSAIDS (Non-Steroidal Anti-Inflamma [NSAIDS (NON-STEROIDAL ANTI-INFLAMMA] Adverse Reaction (Severe, Verified 12/29/24 13:55) HYPEREMESIS adhesive tape Adverse Reaction (Verified 12/29/24 13:55) Blister From Celexa Allergy (Intermediate, Uncoded 12/29/24 13:55) INTERACTS W/LEVAQUIN ANTIDEPRESENT Allergy (Unknown, Uncoded 12/29/24 13:55) Unknown Sulfamethoxazole Allergy (Unknown, Uncoded 12/29/24 13:55) Unknown toradol Allergy (Unknown, Uncoded 12/29/24 13:55) Unknown From Ambien Adverse Reaction (Severe, Uncoded 12/29/24 13:55) TACHYCARDIA From Ultram Adverse Reaction (Severe, Uncoded 12/29/24 13:55) TACHYCARDIA From ZOLOFT Adverse Reaction (Severe, Uncoded 12/29/24 13:55) TACHYCARDIA From TORADOL Adverse Reaction (Mild, Uncoded 12/29/24 13:55) STOMACH UPSET HPI Comments Details: 48 y.o F with PMH of HTN, YUNG, chronic prescription opiate use who is here for chronic diarrhea. Reports has been having LLQ pain assoc with frequent BMs x 2 years. Has yellow stools which is formed but has to go 7-8 BMs per day. No night time sx. Mostly happens after eating. No blood in stool. 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 Meds reviewed- on Mag oxide. Also reports that certain food ana rosa fluids get hung up in her chest and regurgitates. No dysphagia. Avoids eating/drinking before bedtime to mitigate this. Pt smokes cannabis x 1-2 times a day. Former cigarette smoking quit 2015. No etOH use. No fam hx of CRC in first degree relatives. Mat uncle with CRC and Pat Uncle and Aunt with CRC. Brother - HCC hx of cirrhosis 11/02/24: Mucosa: Solid debris noted in cecal pouch and most of the right colon precluding adequate visualization. Protruding lesions: * 1 pedunculated polyp of size 6 mm in sigmoid colon. Cold snare polypectomy was performed. The polyp was completely removed and retrieved. * Small internal hemorrhoids without stigmata of recent bleeding. Path: Addendum #1 (C): Immunostain for gastrin is negative in 3 tissue fragments consistent with gastric body mucosa, supporting a diagnosis of atrophic gastritis with focal pseudopyloric changes. One fragment shows positive G cells consistent with antral mucosa. Control stains appropriately. Electronically Signed By: Gisella Houston 11/09/24 [id number] Diagnosis A. Duodenum, biopsy: Duodenal mucosa with preserved villi and no specific change. B. Gastric antrum, biopsy: Reactive gastropathy with possible erosion and minim al chronic inactive inflammation; negative for H.pylori, intestinal metaplasia and dysplasia. C. Gastric body, biopsy: Gastric body and antral-type mucosa with reactive changes and mild-moderate chronic inactive gastritis, cannot exclude atrophic gastritis; negative for H. pylori, intestinal metaplasia and dysplasia. D. Esophagus, lower, biopsy: Squamous mucosa with no specific change; no columnar mucosa present; no evidence of eosinophilic esophagitis. E. Esophagus, middle, biopsy: Squamous mucosa with no specific change; no columnar mucosa present. F. Colon, sigmoid, polyp: Tubular adenoma; negative for high-grade dysplasia and carcinoma. Comment: (C): Gastric stain pending; addendum to follow. 11/17/24: Pt here for follow up. Results reviewed. Bx pos for atrophic gastritis. No GIM. No H pylori noted. [place] poor prep and aware will need a repeat. Main issue remains severe abd pain assoc with urge to defecate. Abd pain improves after BM is passed. Pt hesitant to take antidiarrheals as constipation is more bothersome than frequent stools. She is more concerned re global sx. Laboratory Tests 02/08/22 11/05/24 14:37 14:58 Iron 35 Ferritin 9 L 134 12/29/24: Took nortriptyline for 4 weeks but had to stop it due to severe constipation. Would not have a BM for 3-4 days. Reports that diarrhea is manageable looking for pain mgmt more than overall diarrhea mgmt. As reviewed, colo was poor prep. Pt aware that needs a repeat later this year for completion. [facility] Medical History Sleep apnea Chronic back pain GERD (gastroesophageal reflux disease) Cervical radiculopathy Anemia Hx: UTI (urinary tract infection) Fatty liver Hepatic steatosis Migraines Asthma Recurrent UTI Adhesive capsulitis of right shoulder Fibromyalgia Unspecified internal derangement of unspecified knee Surgical History History of esophagogastroduodenoscopy (EGD) H/O colonoscopy History of left oophorectomy Previous section History of partial hysterectomy Family History Father No problems noted. Mother No problems noted. 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 Reproductive History Menstrual Age of Menarche: 13 Review of Systems Const All systems reviewed & are unremarkable except as noted in HPI and below Physical Exam Vital Signs: Last Vital Signs Pulse 92 12/29/24 13:55 BP 114/71 12/29/24 13:55 BMI result Body Mass Index 31.2 No apparent distress Nonicteric Abdomen soft, nondistended Alert and oriented x3, normal gait Results Reviewed Results Reviewed: Laboratory Tests 12/27/24 15:10 Iron 51 % Saturation 17 Ferritin 45 Vitamin B12 429 Folate 8.4 Anti-Parietal Cell Ab Pending Intrinsic Factor Ab Pending Assessment & Plan Assessment & Plan (1) Chronic diarrhea: Code(s): K52.9 - Noninfective gastroenteritis and colitis, unspecified Category: Medical (2) Acid reflux: Code(s): K21.9 - Gastro-esophageal reflux disease without esophagitis Category: Medical (3) Regurgitation of food: Code(s): R11.10 - Vomiting, unspecified Category: Medical (4) Atrophic gastritis: Code(s): K29.40 - Chronic atrophic gastritis without bleeding Category: Medical Plan 1. IBS Sx likely 2/2 IBS-D. Microsocpic colitis not ruled out though typically without abd pain. Was not able to tolerate nortriptyline due to severe constipation. Plan: - STOP nortriptyline - Start hyoscyamine BID to TID 2. Poor prep colo Needs a repeat within 6-12 months 3. Atrophic gastritis Iron studies normal. Ab pending. Plan: - will likely need iron infusion once q6m Follow up 3 months Medications: New hyoscyamine sulfate 0.125 mg PO BID-TID 90 days PRN 120 tabs 0RF abd discomfort Discontinued cefpodoxime must administer with a meal/food Discontinued Reason: Patient Completed Course 200 mg PO BID 12 days 24 tabs 0RF phenazopyridine (Pyridium) Discontinued Reason: Patient Completed Course 100 mg PO TID 5 tabs 0RF nortriptyline Discontinued Reason: Doctor's Order 10 mg PO BEDTIME 90 days 90 caps 0RF Coding Level of Care Code Est Pt Level 4 (53902) Diagnoses Chronic diarrhea K52.9 Acid reflux K21.9 Regurgitation of food R11.10 Atrophic gastritis K29.40
--- OUTSIDE RECORDS SUMMARY | 2024-12-29 13:51 | XMS_ITS | Encounter Summary ---
Author Organization [employer] Address [address] [place] [address] Care Team Providers Care Pick And Shovel Worker Name Role Phone Adal Terrell MD Primary Care Provide r Reason for Visit * Reason Onset Date Comments Appointment Request 03/19/2023 Encounter Details Date Type Department Care Team ([facility] st Contact Info) Description 03/19/2023 Telephone [facility] MEDICINE [address] [place] [address] Adal Terrell MD [address] [place] [address] Appointment Request Social History Tobacco Use Types [...] EDT Tc from pt requesting to r/s POULTRY SEXER visit on 03/21/2023 @ 11:30 am. Pt states due to an emergency she has to fly out to [place] and won't be back in two weeks. Please contact pt at [phone] documented in this encounter Plan of Treatment Upcoming Encounters Date Type Department Care Team ([facility] st Contact Info) Description 02/24/2025 1:30 PM EDT Clinical Support [facility] MED & PEDS [address] [place] [address] Marci Kennedy, RN [address] [place] [address] 03/24/2025 2:30 PM EDT Office Visit [facility] MEDICINE [address] [place] [address] Adal Terrell MD [address] [place] [address] documented as of this encounter Visit Diagnoses Not on filedocumented in this encounter Additional Health Concerns Assessment Noted Time PHQ-9 Depression Total Score: 0 09/10/19 23 11:00 AM EST documented as of this encounter Care Teams Pick And Shovel Worker Relationship Specialty Start Date End Date Adal Terrell MD [address] [place] [address] PCP - General Internal Medicine 03/08/14 documented as of this encounter
[2024-12-29 13:55] VITALS: BP 114/71; PULSE 92; BMI 31.2
== END 2024-12-29 14:29 | disposition home or self-care (01) ==
LOC: HO.HGI 13:38
PROVIDERS: PCP Internal Medicine; Visit Provider Internal Medicine
DX: K52.9 Noninfective gastroenteritis and colitis, unspecified (principal); K21.9 Gastro-esophageal reflux disease without esophagitis; R11.10 Vomiting, unspecified; K29.40 Chronic atrophic gastritis without bleeding
CPT/HCPCS: 99214

== ENCOUNTER → 2024-12-29 19:28 | Outpatient (BNV) | payer MEDICAID, SELFPAY | PROVIDERS: PCP Internal Medicine; Visit Provider Radiology Vascular & Interventional Radiology | DX: M54.41 Lumbago with sciatica, right side (principal) | CPT/HCPCS: 72148 ==

== ENCOUNTER 2024-12-29 19:32 | Outpatient (REF) | payer MEDICAID, SELFPAY ==
--- NOTE | ~2024-12-29 | MR_ITS ---
CLINICAL HISTORY: low back pain, with right sided sciatica MR lumbar spine without gadolinium Comparison: None Findings: Normal alignment. No acute fracture or pathologic bone lesion. Cauda equina and conus medullaris within normal limits. Paraspinal and retroperitoneal soft tissues are normal Individual levels: T12-L4: Unremarkable. L4-L5: Very small posterior disc protrusion with mild disc desiccation. Mild facet hypertrophy at this level. Minimal neural foraminal narrowing. No central canal stenosis. L5-S1: Significant disc desiccation with a small disc fissure. Minimal bilateral neural foraminal narrowing. No central canal stenosis. Impression: Minimal degenerative change at L4-L5 and L5-S1. This document has been electronically signed by: Armani Henderson MD on 12/30/2024 11:10:30
== END 2024-12-29 19:33 | disposition home or self-care (01) ==
LOC: HO.MRI 19:32
PROVIDERS: PCP Internal Medicine; Visit Provider Internal Medicine
DX: M54.41 Lumbago with sciatica, right side (principal); G89.29 Other chronic pain; K52.9 Noninfective gastroenteritis and colitis, unspecified; K21.9 Gastro-esophageal reflux disease without esophagitis; R11.10 Vomiting, unspecified; K29.40 Chronic atrophic gastritis without bleeding
CPT/HCPCS: 72148; 99212

== ENCOUNTER 2025-04-25 13:35 | Outpatient (REF) | payer MEDICAID, SELFPAY ==
--- OUTSIDE RECORDS SUMMARY | 2025-04-21 11:00 | XMS_ITS | Encounter Summary ---
Author Organization [employer] Address [address] [facility] 7t [place] [address] Care Team Providers Care Marshmallow Machine Worker Name Role Phone Adal Terrell MD Primary Care Provide r Reason for Referral * Consultation (Routine) - Closed Specialty Diagnoses / Procedures Referred By Ruth chaidez Referred To Contact Physical Therapy Diagnoses Chronic right-sided low back pain with right-sided sciatica Adal Terrell MD [address] [place] [address] Phone: tel: fax: [facility] [place] [address] [place] [address] Phone: tel: fax: Referral ID Status Reason Start Date Expiration Date V isits Requested Visits Authorized [id number] Closed Specialty Services Required 04/22/2025 04/22/2026 20 20 Scheduling Instructions Please refer to Team Rehab in [place] Encounter Details Date Type Department Care Team ([facility] st Contact Info) Description 04/21/2025 11:00 AM EDT Office Visit [facility] [address] [place] [address] Adal Terrell MD [address] [place] [address] Chronic right-sided low back pain with right-sided [...] Mccarthy MD - 04/21/2025 11:00 AM EDT SUBJECTIVE Nisa Hall is a 49 [...] 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 [...] and has been extensively evaluated at the [facility] pain clinic in the past as well [...] Center 05/23/2025 3:00 PM Marci Kennedy RN [facility] 05/31/2025 2:30 PM Adal Mccarthy MD MEDICINE [facility] [1] Allergies Allergen Reactions Amitriptyline Unknown [...] 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 [...] and has been extensively evaluated at the [facility] pain clinic in the past as well [...] Description 05/23/2025 3:00 PM EDT Clinical Support [facility] [address] [place] [address] Marci Kennedy, RN [address] [place] [address] 05/31/2025 2:30 PM EST Office Visit [facility] [address] [place] [address] Adal Terrell MD [address] [place] [address] Scheduled Orders Name Type Priority Associated Diagnoses Orde r Schedule CBC auto differential Lab Routine Leukocytosis, unspecified type Expected: 04/21/2025 (Approximate), Expires: 04/21/2026 Vitamin D, 25-Hydroxy, Total, Immunoassay Lab Routine Low vitamin D level Expected: 04/21/2025 (Approximate), Expires: 04/21/2026 Scheduled Referrals Name Type Priority Associated Diagnoses Orde r Schedule Referral to Physical Therapy Outpatient Referral Routine Chronic right-sided low back pain with right-sided sciatica Expected: 04/21/2025 (Approximate), Expires: 04/21/2026 documented as of this encounter Visit Diagnoses Diagnosis Chronic right-sided low back pain with right-sided sciatica- Primary Low vitamin D level Leukocytosis, unspecified type documented in this encounter Additional Health Concerns Assessment Noted Time PHQ-9 Depression Total Score: 0 12/01/19 25 10:42 AM EDT documented as of this encounter Care Teams Marshmallow Machine Worker Relationship Specialty Start Date End Date Adal Terrell MD [address] [place] [phone] PCP - General Internal Medicine 03/08/14 documented as of this encounter
--- OUTSIDE RECORDS SUMMARY | 2025-04-25 15:10 | XMS_ITS | Encounter Summary ---
Author Organization [employer] Address [address] [facility] 7t [place] [address] Care Team Providers Care Retail Coverage Merchandiser Lead Name Role Phone Adal Terrell MD Primary Care Provide r Reason for Visit * Reason Comments Med Refill Encounter Details Date Type Department Care Team ([facility] Contact Info) Description 04/05/2024 Refill [facility] [address] [place], [place] [phone] Ronel Thomas, ANP [address] [place] [address] COVID-19 Social History Tobacco Use Types Packs/Day [facility] Description 05/23/2025 3:00 PM EDT Clinical Support [facility] [address] [place] [address] Marci Kennedy, RN [address] [place] [address] 05/31/2025 2:30 PM EST Office Visit [facility] [address] [place] [address] Adal Terrell MD [address] [place] [phone] documented as of this encounter Visit Diagnoses Diagnosis COVID-19 documented in this encounter Additional Health Concerns Assessment Noted Time PHQ-9 Depression Total Score: 5 01/27/20 24 10:54 AM EDT documented as of this encounter Care Teams Retail Coverage Merchandiser Lead Relationship Specialty Start Date End Date Adal Terrell MD [address] [place] [phone] PCP - General Internal Medicine 03/08/14 documented as of this encounter
--- OUTSIDE RECORDS SUMMARY | 2025-04-25 15:10 | XMS_ITS | Encounter Summary ---
Author Organization [employer] Address [address] [facility] 7t [place] [address] Care Team Providers Care Contract Specialist Name Role Phone Adal Terrell MD Primary Care Provide r Reason for Visit * Reason Onset Date Comments chart prep 04/20/2025 Encounter Details Date Type Department Care Team ([facility] Contact Info) Description 04/20/2025 Telephone [facility] [address] [place], [place] [phone] Adal Terrell MD [address] [place], [place] [phone] chart prep Social History Tobacco Use Types Packs/Day Years [...] encounter Miscellaneous Notes * Telephone Encounter - Tamar Lozoya [place] - 04/20/2025 2:38 PM EDT Chart Prep Labs: done Images: done Screenings: PAP Vaccines due: Covid Due, Hep A Due, Hep B Due, PCV20 Due, and Flu Due Referrals: Completed Overdue care gaps: LMP and None documented in this encounter Plan of Treatment Upcoming Encounters Date Type Department Care Team ([facility] st Contact Info) Description 05/23/2025 3:00 PM EDT Clinical Support [facility] [address] [place] [address] Marci Kennedy RN [address] [place] [address] 05/31/2025 2:30 PM EST Office Visit [facility] MED[facility]INE [address] [place] [address] Adal Terrell MD [address] [place] [address] documented as of this encounter Visit Diagnoses Not on filedocumented in this encounter Additional Health Concerns Assessment Noted Time PHQ-9 Depression Total Score: 0 12/01/19 25 10:42 AM EDT documented as of this encounter Care Teams Contract Specialist Relationship Specialty Start Date End Date Adal Terrell MD [address] [place] [address] PCP - General Internal Medicine 03/08/14 documented as of this encounter
--- OUTSIDE RECORDS SUMMARY | 2025-04-25 15:10 | XMS_ITS | Encounter Summary ---
Author Organization [employer] Address 75 [facility] 7t [place] [address] Care Team Providers Care Ab Initio Etl Developer Name Role Phone Adal Terrell MD Primary Care Provide r Reason for Visit * Reason Onset Date Comments Nurse Triage 03/05/2024 Encounter Details Date Type Department Care Team ([facility] Contact Info) Description 03/05/2024 Telephone [facility] MED[facility]INE [address] [place], [place] [phone] Adal Terrell MD [address] [place], [place] [phone] Nurse Triage Social History Tobacco Use Types [...] Description 05/23/2025 3:00 PM EDT Clinical Support [facility] [address] [place] [address] Maric Kennedy, RN [address] [place] [address] 05/31/2025 2:30 PM EST Office Visit [facility] MED[facility]INE [address] [place] [address] Adal Terrell MD [address] [place] [address] documented as of this encounter Visit Diagnoses Not on filedocumented in this encounter Additional Health Concerns Assessment Noted Time PHQ-9 Depression Total Score: 5 01/27/20 24 10:54 AM EDT documented as of this encounter Care Teams Ab Initio Etl Developer Relationship Specialty Start Date End Date Adal Terrell MD [address] [place] [address] PCP - General Internal Medicine 03/08/14 documented as of this encounter
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
--- OUTSIDE RECORDS SUMMARY | 2025-04-25 15:10 | XMS_ITS | Encounter Summary ---
Author Organization [employer] Address [address] [facility] 7[address] [place] [address] Care Team Providers Care Web Design Specialist Name Role Phone Adal Terrell MD Primary Care Provide r Encounter Details Date Type Department Care Team (Latest Contact Info) Description 04/21/2025 Travel Social History Tobacco Use Types Packs/Day [...] Description 05/23/2025 3:00 PM EDT Clinical Support [facility] [address] [place] [address] Marci Kennedy, YANET [address] [place] [address] 05/31/2025 2:30 PM EST Office Visit [facility] [address] [place] [address] Adal Terrell MD [address] [place] [address] documented as of this encounter Visit Diagnoses Not on filedocumented in this encounter Additional Health Concerns Assessment Noted Time PHQ-9 Depression Total Score: 0 12/01/19 25 10:42 AM EDT documented as of this encounter Care Teams Web Design Specialist Relationship Specialty Start Date End Date Adal Terrell MD [address] [place] [address] PCP - General Internal Medicine 03/08/14 documented as of this encounter"
--- OUTSIDE RECORDS SUMMARY | 2025-04-25 15:10 | XMS_ITS | Encounter Summary ---
Author Organization [employer] Address 75 [facility] 7t [place] [address] Care Team Providers Care Sleever Name Role Phone Adal Terrell MD Primary Care Provide r Reason for Visit * Reason Onset Date Comments Letter for School/Work 12/12/2023 Appointment Request 12/12/2023 Encounter Details Date Type Department Care Team ([facility] Contact Info) Description 12/12/2023 Telephone [facility] MEDICINE 230 [place], [place] [phone] Adal Terrell MD 230 [place], [place] [phone] Letter for School/Work; Appointment Request Social History [...] Description 05/23/2025 3:00 PM EDT Clinical Support [facility] MED & PEDS 505 [place] [address] Marci Kennedy, YANET 505 [place] [address] 05/31/2025 2:30 PM EST Office Visit [facility] MEDICINE 230 [place] [address] Adal Terrell MD 230 [place] [address] documented as of this encounter Visit Diagnoses Not on filedocumented in this encounter Additional Health Concerns Assessment Noted Time PHQ-9 Depression Total Score: 0 09/10/19 23 11:00 AM EST documented as of this encounter Care Teams Sleever Relationship Specialty Start Date End Date Adal Terrell MD 230 [place] [address] PCP - General Internal Medicine 03/08/14 documented as of this encounter
--- OUTSIDE RECORDS SUMMARY | 2025-04-25 15:10 | XMS_ITS | Encounter Summary ---
Author Organization [employer] Address 75 [facility] 7t [place] [address] Care Team Providers Care District Court Judge Name Role Phone Adal Terrell MD Primary Care Provide r Reason for Visit * Reason Onset Date Comments Med Refill 11/05/2022 Encounter Details Date Type Department Care Team (Late Contact Info) Description 11/05/2022 Telephone [facility] MEDICINE 230 [place], [place] [phone] Adal Terrell MD 230 [place] [address] Med Refill Social History Tobacco Use Types [...] Department Care Team (Late Contact Info) Description 05/23/2025 3:00 PM EDT Clinical Support [facility] CHC MED & PEDS 505 [place] [address] Marci Kennedy, RN 505 [place] [address] 05/31/2025 2:30 PM EST Office Visit [facility] MEDICINE 230 [place] [address] Adal Terrell MD 230 [place] [address] documented as of this encounter Visit Diagnoses Not on filedocumented in this encounter Additional Health Concerns Assessment Noted Time PHQ-9 Depression Total Score: 0 09/10/19 11:00 AM EST documented as of this encounter Care Teams District Court Judge Relationship Specialty Start Date End Date Adal Terrell MD [address] [place] [address] PCP - General Internal Medicine 03/08/14 documented as of this encounter
--- OUTSIDE RECORDS SUMMARY | 2025-04-25 15:10 | XMS_ITS | Encounter Summary ---
Author Organization [facility] Address [address] [facility] [address] [place] [address] Phone Care Team Providers Care Outpatient Phlebotomist Name Role Phone Adal Alves MD Primary Care Provide r Reason for Referral * Physical Therapy (Routine) - New Request Specialty Diagnoses / Procedures Referred By Ruth chaidez Referred To Contact Physical Therapy Diagnoses Encounter for rehabilitation Adal Alves MD 230 [facility]. [address] [place] [address] Phone: tel: fax: [email or web address] [address] [place] [address] Phone: tel: Referral ID Status Reason Start Date Expiration Date V isits Requested Visits Authorized [id number] New Request 04/22/2025 04/22/2026 1 1 Encounter Details Date Type Department Care Team (Latest Contact Info) Description 04/22/2025 Transcribe Orders [facility] Rehabilitation Services [address] [place] [address] Adal Alves MD 230 [facility]. [address] [place] [address] [email or web address] Encounter for rehabilitation (Primary Dx) Social History Tobacco Use Types Packs/Day Years Used Date Smoking Tobacco: Never Smokeless Tobacco: Never Alcohol Use Standard Drinks/Week Comments Never 0 (1 standard drink = 0.6 oz pur e alcohol) Education Answer Date Recorded Are you interested in more education? Not on felipe e 11/22/2022 Are you concerned about learning? Not on file 11/22/2022 No 11/22/2022 No 11/22/2022 Digital Access Answer Date Recorded No 12/20/2022 No 12/20/2022 No 12/20/2022 Reliable internet access at home? Not on file 12/20/2022 Device with a working camera? Not on file Comments No Sex and Gender Information Value Date Recorded Sex Assigned at Female 10/23/2018 3:45 PM EDT Legal Sex Female 9:26 PM EDT Gender Identity Female 10/23/2018 3:45 PM EDT Sexual Orientation Straight 10/23/2018 3: 45 PM EDT documented as of this encounter Plan of Treatment Scheduled Referrals Name Type Priority Associated Diagnoses Orde r Schedule Ambulatory referral to [facility] Physical Therapy Outpatient Referral Routine Encounter for rehabilitation Ordered: 04/22/2025 documented as of this encounter Visit Diagnoses Diagnosis Encounter for rehabilitation- Primary documented in this encounter Care Teams Outpatient Phlebotomist Relationship Specialty Start Date End Date Adal Alves MD [address] [place] [address] [address] [place] [address] [email or web address] PCP - General Internal Medicine 10/26/18 documented as of this encounter Additional Source Comments The information contained in this document represents components of the legal health record. It is not the complete legal health record.[facility]
--- OUTSIDE RECORDS SUMMARY | 2025-04-25 15:10 | XMS_ITS | Encounter Summary ---
Author Organization [employer] Address 75 [facility] 7t [place] [address] Care Team Providers Care Plate And Weld Inspector Name Role Phone Adal Terrell MD Primary Care Provide r Reason for Visit * Reason Onset Date Comments Med Refill 10/08/2024 Encounter Details Date Type Department Care Team ([facility] Contact Info) Description 10/08/2024 Telephone [facility] MEDICINE 230 [place], [place] [phone] Adal Terrell MD 230 [place] [address] Med Refill Social History Tobacco Use Types [...] immediate release tablet To be sent to: [id number] documented in this encounter Plan of Treatment Upcoming Encounters Date Type Department Care Team (Late st Contact Info) Description 05/23/2025 3:00 PM EDT Clinical Support [facility] CHC MED & PEDS 505 [facility] [place] [address] Marci Kennedy, YANET 505 [facility] [place] [address] 05/31/2025 2:30 PM EST Office Visit [facility] MEDICINE 230 [place] [address] Adal Terrell MD 230 [place] [address] documented as of this encounter Visit Diagnoses Not on filedocumented in this encounter Additional Health Concerns Assessment Noted Time PHQ-9 Depression Total Score: 5 01/27/20 24 10:54 AM EDT documented as of this encounter Care Teams Plate And Weld Inspector Relationship Specialty Start Date End Date Adal Terrell MD 230 [place] [address] PCP - General Internal Medicine 03/08/14 documented as of this encounter
--- OUTSIDE RECORDS SUMMARY | 2025-04-25 15:10 | XMS_ITS | Encounter Summary ---
Author Organization [employer] Address [address] [facility] [address] 7t [place] [address] Care Team Providers Care Fine Chemicals Operator Name Role Phone Adal Terrell MD Primary Care Provide r Encounter Details Date Type Department Care Team ([facility] Contact Info) Description 02/05/2024 Orders Only [facility] MEDICINE 230 [place], [place] [phone] Adal Terrell MD 230 [place], [place] [phone] Social History Tobacco Use Types Packs/Day Years [...] Description 05/23/2025 3:00 PM EDT Clinical Support [facility] CHC MED & PEDS 505 [place] [address] Marci Kennedy, RN 505 [place], [place] [phone] 05/31/2025 2:30 PM EST Office Visit [facility] MEDICINE 230 [place] [address] Adal Terrell MD 230 [place] [address] documented as of this encounter Procedures Procedure [...] documented as of this encounter Care Teams Fine Chemicals Operator Relationship Specialty Start Date End Date Adal Terrell MD 230 [place] [address] PCP - General Internal Medicine 03/08/14 documented as of this encounter
--- OUTSIDE RECORDS SUMMARY | 2025-04-25 15:10 | XMS_ITS | Encounter Summary ---
Author Organization [employer] Address 75 [facility] 7t [place] [address] Care Team Providers Care Pickle Sorter Name Role Phone Adal Terrell MD Primary Care Provide r Reason for Visit * Reason Onset Date Comments Appointment Request 03/19/2023 Encounter Details Date Type Department Care Team ([facility] Contact Info) Description 03/19/2023 Telephone [facility] 230 [place], [place] [phone] Adal Terrell MD 230 [place], [place] [phone] Appointment Request Social History Tobacco Use Types [...] EDT Tc from pt requesting to r/s PHYSICAL CHEMISTRY PROFESSOR visit on 03/21/2023 @ 11:30 am. Pt states due to an emergency she has to fly out to [place] and won't be back in two weeks. Please contact pt at [phone] documented in this encounter Plan of Treatment Upcoming Encounters Date Type Department Care Team (Late st Contact Info) Description 05/23/2025 3:00 PM EDT Clinical Support [facility] MED & PEDS 505 [place] [address] Marci Kennedy, RN 505 [place] [address] 05/31/2025 2:30 PM EST [facility] 230 [place] [address] Adal Terrell MD 230 [place] [address] documented as of this encounter Visit Diagnoses Not on filedocumented in this encounter Additional Health Concerns Assessment Noted Time PHQ-9 Depression Total Score: 0 09/10/19 11:00 AM EST documented as of this encounter Care Teams Pickle Sorter Relationship Specialty Start Date End Date Adal Terrell MD 230 [place] [address] PCP - General Internal Medicine 03/08/14 documented as of this encounter
--- OUTSIDE RECORDS SUMMARY | 2025-04-25 15:10 | XMS_ITS | Clinical Summary ---
Author Organization [facility] Address [address] [facility] [address] [place] [address] Phone Care Team Providers Care Children'S Tutor Name Role Phone Adal Alves MD Primary Care Provide r Allergies Active Allergy Reactions Criticality Noted Date Comments Sulfamethoxazole-Trimethoprim 2018 Citalopram 10/23/2018 Levofloxacin 10/23/2018 Morphine 10/23/2018 Ibuprofen 10/23/2018 Naproxen 10/23/2018 Nsaids (Non-Steroidal Anti-I nflammatory Drug) 10/23/2018 Medications albuterol 90 mcg/actuation inhaler Inhale 2 puffs into the lungs every 6 (six) hours as needed for wheezing. Active omeprazole (PRILOSEC) 20 MG capsule TK 1 C PO QD AC 9 Active methylPREDNISol one (MEDROL DOSEPACK) 4 mg tablet follow package directions 21 tablet 9 Active Additional Information Patient not taking.Reported on 09/02/2019 Encounters Date Type Department Care Team Description 04/22/2025 Transcribe Orders [facility] Rehabilitation Services [address] [place] [address] Adal Puente MD Encounter for rehabilitation (Primary Dx) from Last 3 Months Social History Tobacco Use Types Packs/Day Years [...] Orientation Straight 10/23/2018 3: 45 PM EDT Last Filed Vital Signs Vital Sign Reading Time Taken Comments Blood Pressure 120/68 10/23/2018 3:41 PM EDT Pulse 86 10/23/2018 3:41 PM EDT Temperature 36.5 C (97.7 F) 10/23/2018 3:41 PM EDT Respiratory Rate 22 10/23/2018 3:41 PM EDT Oxygen Saturation 97% 10/23/2018 3:41 PM EDT Inhaled Oxygen Concentration - - Weight 59 kg (130 lb) 10/23/2018 3:41 PM EDT Height 160 cm (5' 3 ) 10/23/2018 3:41 PM EDT Body Mass Index 23.03 10/23/2018 3:41 PM EDT Plan of Treatment Health Maintenance Due Date Last Done Comments LIPID PANEL 1976 DEPRESSION SCREENING 1988 HEPATITIS C SCREENING 1994 HIV ONE-TIME SCREENING (18-6 5 YEARS) 1994 PAP SMEAR 1997 MAMMOGRAM 2016 COLOGUARD 2021 COLONOSCOPY 2021 COLORECTAL CANCER SCREENING 2021 FIT TEST 2021 FOBT 2021 SIGMOIDOSCOPY 2021 VIRTUAL COLONOSCOPY 2021 INFLUENZA VACCINE (#1) 2025 9, 09/07/2018 COVID-19 VACCINE (3 - 2024-2 6 season) 2025 11/01/2020, 10/04/2020 Adult Td,Tdap Booster 02/04/2029 02/04/2019 SMOKING STATUS SCREENING (On ce After 26 Yrs) Completed 09/02/2019 HEPATITIS A VACCINES Aged Out No long er eligible based on patient's age to complete this topic HIB VACCINES Aged Out No longer eligi ble based on patient's age to complete this topic MENINGOCOCCAL VACCINES (ACWY) Aged Out No longer eligible based on patient's age to complete this topic MENINGOCOCCAL VACCINES (B) Aged Out N o longer eligible based on patient's age to complete this topic PNEUMOCOCCAL VACCINES (0-49 years) Aged Out No longer eligible b ased on patient's age to complete this topic Medical Devices Not on file Insurance [place] [address] [place] [id number] [place] [id number] [facility] C3 ACO [facility] [address] [place] [address] [address] [place] [address] C3 A[employer] [facility] C3 [facility] Care Teams Children'S Tutor Relationship Specialty Start Date End Date Adal Alves MD [address] [place] [address] [address] [place] [address] [email or web address] PCP - General Internal Medicine 10/26/18 Additional Source Comments The information contained in this document represents components of the legal health record. It is not the complete legal health record.[facility]
--- OUTSIDE RECORDS SUMMARY | 2025-04-25 15:10 | XMS_ITS | Encounter Summary ---
Author Organization [employer] Address 75 [facility] 7t [place] [address] Care Team Providers Care Forestry Tree Pruner Name Role Phone Adal Terrell MD Primary Care Provide r Reason for Visit * Reason Comments Med Refill Encounter Details Date Type Department Care Team ([facility] Contact Info) Description 07/23/2023 Refill [facility] MEDICINE 230 [place], [place] [phone] Adal Terrell MD 230 [place], [place] [phone] Chronic right-sided low back pain with right-sided [...] Description 05/23/2025 3:00 PM EDT Clinical Support [facility] CHC MED & PEDS 505 [place] [address] Marci Kennedy, RN 505 [place] [address] 05/31/2025 2:30 PM EST Office Visit [facility] MEDICINE 230 [place] [address] Adal Terrell MD 230 [place] [address] documented as of this encounter Visit Diagnoses Diagnosis Chronic right-sided low back pain with right-sided sciatica Sacroiliac joint dysfunction Nonallopathic lesion of sacral region, not elsewhere classified documented in this encounter Additional Health Concerns Assessment Noted Time PHQ-9 Depression Total Score: 0 09/10/19 23 11:00 AM EST documented as of this encounter Care Teams Forestry Tree Pruner Relationship Specialty Start Date End Date Adal Terrell MD 230 [place] [address] PCP - General Internal Medicine 03/08/14 documented as of this encounter
--- OUTSIDE RECORDS SUMMARY | 2025-04-25 15:10 | XMS_ITS | Encounter Summary ---
Author Organization [employer] Address 75 [facility] 7t [place] [address] Care Team Providers Care Senior Power Plant Operator Name Role Phone Adal Terrell MD Primary Care Provide r Reason for Visit * Reason Onset Date Comments Nurse Triage 04/11/2025 Encounter Details Date Type Department Care Team ([facility] Contact Info) Description 04/11/2025 Telephone [facility] MEDICINE 230 [place], [place] [phone] Adal Terrell MD 230 [place], [place] [phone] Nurse Triage Social History Tobacco Use Types [...] Telephone Encounter - Gabriela Morrison RN - 04/20/2025 9:01 AM EDT TC placed to the pt to inform and remind that PCP is agreeable to seeing the pt tomorrow 04/21/2025 at 11 AM to assess current chronic back pain. The pt was agreeable to this appointment date and timeand had no further questions or concerns. * Telephone Encounter - Gabriela Morrison RN - 04/12/2025 2:11 PM EDT TC placed to the pt to follow up on the triage call from yesterday in which the pt was requesting an appt with PCP only for chronic back pain. 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 Pt rates the pain typically above a10/10. Pt has been taking the prescribed Oxycodone 5 MG but with only temporary minimal relief noted. Aggravating factors are ambulation and sitting for long periods of time. The pt was offered several appointments with other providers but pt will only see PCP. Pt is agreeable to staring on PT again but would like to speak with PCP in person. Pt would like to take 04/21 sick onsite appt but advised that it is too far in advance and needs PCP approval. * Telephone Encounter - Felicia Peña RN - 04/11/2025 1:10 PM EDT Called pt. Back. She states that she needs an appt. To discuss her back concerns. Pt. States her low back pain causes her to walk slow and pt. Cannot drive for long without pain and then can barely walk. Pt. States she had to stop going to school for ROOFING SUPERINTENDENT in [place] as well due to back problems. I advised pt. That I cannot book appt. At this time due to no openings in next 2 days with PCP. Pt. Is only willing to see PCP. I do see an opening on at 11am but, I am unable to book that appt. That far out. Will send this message to [facility] nurses to discuss and make appt. For pt. Protocol Used: Back Pain (Adult) Protocol-Based Disposition: See in Office or Video Visit within 2 Weeks Video visit offer not recorded Positive Triage Question: * Back pain is a chronic symptom (recurrent or ongoing AND lasting > 4 weeks) * All higher-acuity triage questions were negative Care Advice Discussed: * Cold or Heat * Sleep * Pain Medicines * Telephone Encounter - Earnest Garcia - 04/11/2025 1:07 PM EDT Symptom: Back Pain - Not From Injury Outcome: Schedule an appointment to be seen within 3 days Reason: Caller denied all higher acuity questions Please contact pt at [phone]. documented in this encounter Plan of Treatment Upcoming Encounters Date Type Department Care Team ([facility] st Contact Info) Description 05/23/2025 3:00 PM EDT Clinical Support [facility] CHC MED & PEDS 505 [place] [address] Marci Kennedy, RN 505 [place] [address] 05/31/2025 2:30 PM EST Office Visit [facility] MEDICINE 230 [facility] [place] [address] Adal Terrell MD 230 [place] [address] documented as of this encounter Visit Diagnoses Not on filedocumented in this encounter Additional Health Concerns Assessment Noted Time PHQ-9 Depression Total Score: 0 12/01/19 25 10:42 AM EDT documented as of this encounter Care Teams Senior Power Plant Operator Relationship Specialty Start Date End Date Adal Terrell MD 230 [place] [address] PCP - General Internal Medicine 03/08/14 documented as of this encounter
--- OUTSIDE RECORDS SUMMARY | 2025-04-25 15:10 | XMS_ITS | Encounter Summary ---
Author Organization [employer] Address [address] [facility] [address] 7t [place] [address] Care Team Providers Care Manager Storage Name Role Phone Adal Terrell MD Primary Care Provide r Encounter Details Date Type Department Care Team ([facility] Contact Info) Description 10/13/2024 Telephone [facility] MEDICINE 230 [place], [place] [phone] Adal Terrell MD 230 [place], [place] [phone] Social History Tobacco Use Types Packs/Day Years [...] Upcoming Encounters Date Type Department Care Team ([facility] st Contact Info) Description 05/23/2025 3:00 PM EDT Clinical Support [facility] CHC MED & PEDS 505 [place] [address] Marci Kennedy RN 505 [place] [address] 05/31/2025 2:30 PM EST Office Visit [facility] MEDICINE 230 [place] [address] Adal Terrell MD 230 [place] [address] documented as of this encounter Visit Diagnoses Not on filedocumented in this encounter Additional Health Concerns Assessment Noted Time PHQ-9 Depression Total Score: 5 01/27/20 24 10:54 AM EDT documented as of this encounter Care Teams Manager Storage Relationship Specialty Start Date End Date Adal Terrell MD [address] [place] [address] PCP - General Internal Medicine 03/08/14 documented as of this encounter
--- OUTSIDE RECORDS SUMMARY | 2025-04-25 15:10 | XMS_ITS | Encounter Summary ---
Author Organization [employer] Address 75 [facility] 7t [place] [address] Care Team Providers Care Assembler Caterpillar Spider Name Role Phone Adal Terrell MD Primary Care Provide r Reason for Visit * Reason Onset Date Comments Med Refill 02/09/2024 Encounter Details Date Type Department Care Team ([facility] Contact Info) Description 02/09/2024 Telephone [facility] MEDICINE 230 [place], [place] [phone] Adal Terrell MD 230 [place] [address] Med Refill Social History Tobacco Use Types [...] immediate release tablet To be sent to: [facility][id number] [place], [place] - [address] [facility] documented in this encounter Plan of Treatment Upcoming Encounters Date Type Department Care Team (Late st Contact Info) Description 05/23/2025 3:00 PM EDT Clinical Support [facility] CHC MED & PEDS 505 [place] [address] Marci Kennedy RN 505 [place] [address] 05/31/2025 2:30 PM EST Office Visit [facility] MEDICINE 230 [place] [address] Adal Terrell MD 230 [place] [address] documented as of this encounter Visit Diagnoses Not on filedocumented in this encounter Additional Health Concerns Assessment Noted Time PHQ-9 Depression Total Score: 5 01/27/20 24 10:54 AM EDT documented as of this encounter Care Teams Assembler Caterpillar Spider Relationship Specialty Start Date End Date Adal Terrell MD [address] [place] [address] PCP - General Internal Medicine 03/08/14 documented as of this encounter
--- OUTSIDE RECORDS SUMMARY | 2025-04-25 15:10 | XMS_ITS | Encounter Summary ---
Author Organization [employer] Address 75 [facility] 7t [place] [address] Care Team Providers Care Bus And Rail Operator Name Role Phone Adal Terrell MD Primary Care Provide r Reason for Visit * Reason Onset Date Comments Results 08/13/2023 Encounter Details Date Type Department Care Team ([facility] Contact Info) Description 08/13/2023 Telephone [facility] MEDICINE 230 [place], [place] [phone] Adal Terrell MD 230 [place], [place] [phone] Results Social History Tobacco Use Types Packs/Day [...] Description 05/23/2025 3:00 PM EDT Clinical Support [facility] CHC MED & PEDS 505 [place] [address] Marci Kennedy, RN 505 [place] [address] 05/31/2025 2:30 PM EST Office Visit [facility] MEDICINE 230 [place] [address] Adal Terrell MD 230 [place] [address] documented as of this encounter Visit Diagnoses Not on filedocumented in this encounter Additional Health Concerns Assessment Noted Time PHQ-9 Depression Total Score: 0 09/10/19 23 11:00 AM EST documented as of this encounter Care Teams Bus And Rail Operator Relationship Specialty Start Date End Date Adal Terrell MD [address] [place] [address] PCP - General Internal Medicine 03/08/14 documented as of this encounter
--- OUTSIDE RECORDS SUMMARY | 2025-04-25 15:10 | XMS_ITS | Encounter Summary ---
Author Organization [employer] Address [address] 7t [place] [address] Care Team Providers Care Infant Toddler Lead Teacher Name Role Phone Adal Terrell MD Primary Care Provide r Encounter Details Date Type Department Care Team ([facility] Contact Info) Description 02/16/2024 Orders Only [facility] MEDICINE [address] [place], [place] [phone] ProviderTong MD Social History Tobacco Use Types [...] Description 05/23/2025 3:00 PM EDT Clinical Support [facility]C MED & PEDS [address] [place] [address] Marci Kennedy, YANET 505 [place] [address] 05/31/2025 2:30 PM EST Office Visit [facility] MEDICINE [address] [place] [address] Adal Terrell MD [address] [place] [address] documented as of this encounter Procedures Procedure [...] documented as of this encounter Care Teams Infant Toddler Lead Teacher Relationship Specialty Start Date End Date Adal Terrell MD 230 [place] [address] PCP - General Internal Medicine 03/08/14 documented as of this encounter
--- OUTSIDE RECORDS SUMMARY | 2025-04-25 15:10 | XMS_ITS | Encounter Summary ---
Author Organization [employer] Address [address] [facility] 7t [place] [address] Care Team Providers Care Material Cutter Name Role Phone Adal Terrell MD Primary Care Provide r Reason for Visit * Reason Onset Date Comments Med Refill 01/02/2023 Encounter Details Date Type Department Care Team ([facility] st Contact Info) Description 01/02/2023 Telephone [facility] MEDICINE 230 [place], [place] [phone] Adal Terrell MD 230 [place], [place] [phone] Med Refill Social History Tobacco Use Types [...] Description 05/23/2025 3:00 PM EDT Clinical Support [facility] MED & PEDS [address] [place] [address] Marci Kennedy, RN 505 [place] [address] 05/31/2025 2:30 PM EST Office Visit [facility]INE [address] [place] [address] Adal Terrell MD 230 [place] [address] documented as of this encounter Visit Diagnoses Not on filedocumented in this encounter Additional Health Concerns Assessment Noted Time PHQ-9 Depression Total Score: 0 09/10/19 11:00 AM EST documented as of this encounter Care Teams Material Cutter Relationship Specialty Start Date End Date Adal Terrell MD 230 [place] [address] PCP - General Internal Medicine 03/08/14 documented as of this encounter
--- OUTSIDE RECORDS SUMMARY | 2025-04-25 15:10 | XMS_ITS | Encounter Summary ---
Author Organization [employer] Address [address] [facility] 7t [place] [address] Care Team Providers Care Staff Appraiser Name Role Phone Adal Terrell MD Primary Care Provide r Reason for Visit * Reason Onset Date Comments Med Refill 12/08/2024 Encounter Details Date Type Department Care Team ([facility] Contact Info) Description 12/08/2024 Telephone [facility] MEDICINE 230 [place], [place] [phone] Adal Terrell MD 230 [place], [place] [phone] Med Refill Social History Tobacco Use Types [...] immediate release tablet To be sent to: [id number] [place], [place] - [address] [place] [address] documented in this encounter Plan of Treatment Upcoming Encounters Date Type Department Care Team ([facility] st Contact Info) Description 05/23/2025 3:00 PM EDT Clinical Support [facility] CHC MED & PEDS 505 [place] [address] Marci Kennedy RN 505 [place] [address] 05/31/2025 2:30 PM EST Office Visit [facility] MEDICINE 230 [place], [place] [phone] Adal Terrell MD 230 [place], [place] [phone] documented as of this encounter Visit Diagnoses Not on filedocumented in this encounter Additional Health Concerns Assessment Noted Time PHQ-9 Depression Total Score: 0 12/01/19 25 10:42 AM EDT documented as of this encounter Care Teams Staff Appraiser Relationship Specialty Start Date End Date Adal Terrell MD 230 [place] [address] PCP - General Internal Medicine 03/08/14 documented as of this encounter
--- OUTSIDE RECORDS SUMMARY | 2025-04-25 15:10 | XMS_ITS | Encounter Summary ---
Author Organization [employer] Address [address] [facility] 7t [place] [address] Care Team Providers Care Director Of Operations Support Name Role Phone Adal Terrell MD Primary Care Provide r Reason for Visit * Reason Comments Med Refill Encounter Details Date Type Department Care Team ([facility] Contact Info) Description 07/03/2023 Refill [facility] CH[facility] MED & PEDS 505 [place], [place] [phone] Adal Terrell MD 230 [place], [place] [phone] Low vitamin D level Social History Tobacco [...] Description 05/23/2025 3:00 PM EDT Clinical Support [facility] MED [facility] PEDS 505 [place] [address] Marci Kennedy, RN 505 [place] [address] 05/31/2025 2:30 PM EST Office Visit [facility] MEDICINE 230 [place] [address] Adal Terrell MD 230 [place] [address] documented as of this encounter Visit Diagnoses Diagnosis Low vitamin D level documented in this encounter Additional Health Concerns Assessment Noted Time PHQ-9 Depression Total Score: 0 09/10/19 23 11:00 AM EST documented as of this encounter Care Teams Director Of Operations Support Relationship Specialty Start Date End Date Adal Terrell MD 230 [place] [address] PCP - General Internal Medicine 03/08/14 documented as of this encounter
--- OUTSIDE RECORDS SUMMARY | 2025-04-25 15:10 | XMS_ITS | Clinical Summary ---
Author Organization [facility] ity Address [address] [place] [address] Care Team Providers Care University Services Program Associate Name Role Phone Unavailable Primary Care [...] Cervical Cancer Screening: P ap Smear 1997 Depression Screening 07/28/2024 COVID-19 Vaccine (1 - 2023-2 5 season) 2025 Influenza Vaccine (#1) 2025 RSV Immunization Adult Patie nts (1 - 1-dose 75+ series) 11/07/2051 HIB Vaccines Aged Out No longer eligi [...] 5 Years) and At-Risk Patients (6 to 49 [...] Documents on File Type Date Recorded Patient Podiatric Foot And Ankle Specialist Expl anation Health Care Decision (hx) 07/06/2020 [...]
--- OUTSIDE RECORDS SUMMARY | 2025-04-25 15:10 | XMS_ITS | Encounter Summary ---
Author Organization [employer] Address [address] [facility] 7t [place] [address] Care Team Providers Care Black Powder Glazing Operator Name Role Phone Adal Terrell MD Primary Care Provide r Reason for Visit * Reason Onset Date Comments Med Refill 11/08/2024 Encounter Details Date Type Department Care Team ([facility] Contact Info) Description 11/08/2024 Telephone [facility] MEDICINE 230 [place], [place] [phone] Adal Terrell MD 230 [place] [address] Med Refill Social History Tobacco Use Types [...] immediate release tablet To be sent to: [id number] - [place], [place] - [address] [facility] documented in this encounter Plan of Treatment Upcoming Encounters Date Type Department Care Team (Late st Contact Info) Description 05/23/2025 3:00 PM EDT Clinical Support [facility] CHC MED & PEDS 505 [place] [address] Marci Kennedy, YANET 505 [place] [address] 05/31/2025 2:30 PM EST Office Visit [facility] MEDICINE 230 [place], [place] [phone] Adal Terrell MD 230 [place] [address] documented as of this encounter Visit Diagnoses Not on filedocumented in this encounter Additional Health Concerns Assessment Noted Time PHQ-9 Depression Total Score: 5 01/27/20 24 10:54 AM EDT documented as of this encounter Care Teams Black Powder Glazing Operator Relationship Specialty Start Date End Date Adal Terrell MD 230 [place] [address] PCP - General Internal Medicine 03/08/14 documented as of this encounter
--- OUTSIDE RECORDS SUMMARY | 2025-04-25 15:10 | XMS_ITS | Encounter Summary ---
Author Organization [employer] Address [address] [facility] 7t [place] [address] Care Team Providers Care Spring Crater Name Role Phone Adal Terrell MD Primary Care Provide r Reason for Visit * Reason Onset Date Comments Med Refill 01/04/2025 Encounter Details Date Type Department Care Team ([facility] Contact Info) Description 01/04/2025 Telephone [facility] MEDICINE 230 [place], [place] [phone] Adal Terrell MD 230 [place], [place] [phone] Med Refill Social History Tobacco Use Types [...] encounter Miscellaneous Notes * Telephone Encounter - Wayne Luke - 01/04/2025 8:45 AM EDT TC from pt requesting medication refill. Medications needing refill : oxyCODONE (Roxicodone) 5 MG immediate release tablet To be sent to: [id number] - [place], [place] - [address] [facility] documented in this encounter Plan of Treatment Upcoming Encounters Date Type Department Care Team ([facility] st Contact Info) Description 05/23/2025 3:00 PM EDT Clinical Support [facility] CH[facility] MED & PEDS 505 [place] [address] Marci Kennedy, YANET 505 [place] [address] 05/31/2025 2:30 PM EST Office Visit [facility] MEDICINE [address] [place], [place] [phone] Adal Terrell MD 230 [place] [address] documented as of this encounter Visit Diagnoses Not on filedocumented in this encounter Additional Health Concerns Assessment Noted Time PHQ-9 Depression Total Score: 0 12/01/19 25 10:42 AM EDT documented as of this encounter Care Teams Spring Crater Relationship Specialty Start Date End Date Adal Terrell MD 230 [place] [address] PCP - General Internal Medicine 03/08/14 documented as of this encounter
--- OUTSIDE RECORDS SUMMARY | 2025-04-25 15:10 | XMS_ITS | Encounter Summary ---
Author Organization [employer] Address [address] [facility] 7t [place] [address] Care Team Providers Care Power Washer Name Role Phone Adal Terrell MD Primary Care Provide r Reason for Visit * Reason Onset Date Comments Durable Medical Equipment 04/21/2025 Encounter Details Date Type Department Care Team ([facility] Contact Info) Description 04/21/2025 Telephone [facility] MEDICINE 230 [place], [place] [phone] Adal Terrell MD 230 [place] [address] Durable Medical Equipment Social History Tobacco Use [...] encounter Miscellaneous Notes * Telephone Encounter - Luh Prajapati - 04/21/2025 2:26 PM EDT Please see message below and advise. If agree, please provide diagnosis and include in most recent note the recommendation and how recliner would benefit the pt in order to meet insurance requirements. Thank you * Telephone Encounter - Cammie Akhtar - 04/21/2025 1:33 PM EDT Patient called in requesting DME for reclinable chair. Per Patient she experiences back pain and itis difficult to get up from chairs. Patient feels like having that chair would be helpful. documented in this encounter Plan of Treatment Upcoming Encounters Date Type Department Care Team (Late st Contact Info) Description 05/23/2025 3:00 PM EDT Clinical Support [facility] CH[facility] MED & PEDS [address] [place] [address] Marci Kennedy, YANET 505 [place] [address] 05/31/2025 2:30 PM EST Office Visit [facility] MEDICINE [address] [place] [phone] Adal Terrell MD 230 [place], [place] [phone] documented as of this encounter Visit Diagnoses Not on filedocumented in this encounter Additional Health Concerns Assessment Noted Time PHQ-9 Depression Total Score: 0 12/01/19 25 10:42 AM EDT documented as of this encounter Care Teams Power Washer Relationship Specialty Start Date End Date Adal Terrell MD 230 [place], [place] [phone] PCP - General Internal Medicine 03/08/14 documented as of this encounter
--- OUTSIDE RECORDS SUMMARY | 2025-04-25 15:10 | XMS_ITS | Encounter Summary ---
Author Organization [employer] Address [address] [facility] 7t [place] [address] Care Team Providers Care Economics Consultant Name Role Phone Adal Terrell MD Primary Care Provide r Reason for Visit * Reason Onset Date Comments Appointment Request 10/29/2022 Encounter Details Date Type Department Care Team ([facility] Contact Info) Description 10/29/2022 Telephone [facility] MEDICINE [address] [place], [place] [phone] Adal Terrell MD 230 [place], [place] [phone] Appointment Request Social History Tobacco Use Types [...] only with him. Please contact pt at [phone] documented in this encounter Plan of Treatment Upcoming Encounters Date Type Department Care Team (Late st Contact Info) Description 05/23/2025 3:00 PM EDT Clinical Support [facility] CH[facility] MED & PEDS [address] [place] [address] Marci Kennedy, RN 505 [place] [address] 05/31/2025 2:30 PM EST Office Visit [facility] MEDICINE 230 [place] [address] Adal Terrell MD [address] [place] [address] documented as of this encounter Visit Diagnoses Not on filedocumented in this encounter Additional Health Concerns Assessment Noted Time PHQ-9 Depression Total Score: 0 09/10/19 23 11:00 AM EST documented as of this encounter Care Teams Economics Consultant Relationship Specialty Start Date End Date Adal Terrell MD [address] [place] [address] PCP - General Internal Medicine 03/08/14 documented as of this encounter
--- OUTSIDE RECORDS SUMMARY | 2025-04-25 15:11 | XMS_ITS | Clinical Summary ---
Author Organization [facility] Address [address] [place] [address] Care Team Providers Care Gardening Manager Name Role Phone Unavailable Primary Care [...] 98 01/06/2022 4:18 PM EDT Temperature 36.6 C (97.8 F) 01/06/2022 4:18 PM EDT Respiratory Rate - - Oxygen Saturation 98% [...] 1997 Mammogram 2016 Colonoscopy 2021 Influenza Vaccine 02/25/2025 COVID-19 Vaccine (1 - 2023-2 5 season) 2025 Pneumococcal Vaccine: Pediat douglas (0-5 Years) and At-Risk Patients (6 to 49 Years) Aged Out No longer eligible b ased on patient's age to complete this topic Insurance [facility]
--- OUTSIDE RECORDS SUMMARY | 2025-04-25 15:11 | XMS_ITS | Clinical Summary ---
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 concentration in the patient sample. Estimated Average Glucose 123 mg/dL [facility] Comment:eAG = Estimated ave rage glucose which is %A1C expressed asaverage glucose, using the formula of the U5I-RhojhypOyjotyc Glucose study (ADAG), Diabetes Care, Vol.31,#8,2007 09/01/2024 3:07 PM EST 09/01/2024 3:07 PM EST us Generic External Data Provider LAB BLOOD ORDERAB LES Final Result Performing Organization Address [facility]/ZIP Co de Phone Number [facility] [address] [place] [phone] * BI Mammogram Screening Tomosynthesis Bilateral (08/26/2024 2:40 PM EST) Anatomical Region Laterality Modality Breast Bilateral Mammography 08/26/2024 2:40 PM EST Narrative 09/04/2024 7:21 PM EST [address] [place] [address] Mammography Report Signed Patient: Nisa Hall MR#: [id number] : 1975 Acct:[id number] Age/Sex: 48 / F ADM Date: 08/26/24 Loc: HO.MAMMO Attending Dr: Adal Alves MD Ordering Physician: Adal Alves MD Resu lts: 2Benign Findings Date of Service: 08/26/24 Follow Up: 1 Year From Orig ina Mammogram Procedure(s): MM tomosynthesis screening BI Accession Number(s): [id number] cc: Adal Alves MD EXAMINATION: MM SCREENING [...] by: Shavonne Corley DO 09/04/2024 07:18 PM [facility] Dictated By: Shavonne Corley DO Signed By: <Electronically signed by Shavonne Corley DO in OV> 09/04/24 1918 DD/ 1440 TD/TT: 08/26/24 1450 Valve Steamer: Procedure Note Donotuseinterpreter, Image - 09/04/2024 [facility] [address] [place] [address] Dr. [place], [place] [address] Mammography Report Signed Patient: Nisa HallMR#: [id number] : 1975Acct:[id number] Age/Sex: 48 / FADM Date: 08/26/24 Loc: HO.MAMMO Attending Dr: Adal Alves MD Ordering Physician: Adal Alves MDResu lts: 2Benign Findings Date of Service: 08/26/24Follow Up: 1 Year From [facility] ina Mammogram Procedure(s): MM tomosynthesis screening BI Accession Number(s): [id number] cc: Adal Alves MD EXAMINATION: MM SCREENING [...] 09/04/24 1918 DD/ 1440 TD/TT: 08/26/24 1450 Valve Steamer: us Adal Mccarthy MD IMG BI PROCEDURES Reji ebenezer Result - Final * HPV mRNA E6/E7 (06/04/2018 12:00 AM EST) HPV mRNA E6/E7 Not Detected NOT DETECTED [facility] Comment: This test was performed using the APTIMA(R) HPV Assay ([employer] This assay detects E6/E7 viral messenger RNA (mRNA) from 14 high-risk HPV types (16,18,31,33,35,39,45,51, 52,56,58,59,66,68). For additional information please refer to: http://education.Familio/faq/TAM138z8 (This link is being provided for informational/ educational purposes only.) The analytical performance characteristics of this assay have been determined by [employer] [place], [place]. The modifications have not been cleared or approved by the FDA. This assay has been validated pursuant to the CLIA regulations and is used for clinical purposes. Test Performed by [facility], [address] [place], [address] [place], [place] Marcos Brasher M.D., Ph.D., Director of Laboratories , CLIA [id number] Please note: Effective 04/08/2016, HPV testing will be performed using [employer]'s APTIMA test which targets mRNA. Detecting mRNA instead of DNA, as in older methods, offers significant improvements in specificity. 06/04/2018 Lisa Goldstein CNM HISTORICAL/NON ORDERABLE LABS Final Result [facility] Anywhere [address] from Last 3 Months or Most Recently Relevant to Health Maintenance [facility] Care Teams Keyboard Instrument Tuner Relationship Specialty Start Date End Date Adal Terrell MD [address] [place] [phone] PCP - General Internal Medicine 03/08/14
--- OUTSIDE RECORDS SUMMARY | 2025-04-25 15:11 | XMS_ITS ---
Author Organization [employer] Address [address] [facility] 7t [place] [address] Care Team Providers Care Client Account Assistant Name Role Phone Adal Terrell MD Primary Care Provide r CHW Complex Status:Enrolled (Active) Start date:11/29/2024 Enrollment date:11/29/2024 Enrollment reason:ADT Feed Overview ADT- [facility] ED 11/27/24 Case Team Name Relationship Phone Satish Bran(Responsible Staff) [phone] Continued Care and Services Coordination
--- OUTSIDE RECORDS SUMMARY | 2025-04-25 15:11 | XMS_ITS | Encounter Summary ---
Author Organization [employer] Address [address] [facility] [address] 7t [place] [address] Care Team Providers Care Sales Agent Food Vending Service Name Role Phone Adal Terrell MD Primary Care Provide r Encounter Details Date Type Department Care Team ([facility] Contact Info) Description 11/05/2024 Orders Only [facility] MED & PEDS [address] [place], [place] [phone] ProviderTong MD Social History Tobacco Use Types [...] Description 05/23/2025 3:00 PM EDT Clinical Support [facility] MED & PEDS [address] [place] [address] Marci Kennedy, YANET 505 [place] [address] 05/31/2025 2:30 PM EST Office Visit [facility] MEDICINE [address] [place] [address] Adal Terrell MD 230 [place] [address] documented as of this encounter Procedures Procedure [...] ORDERAB LES Final Result Performing Organization Address [facility] Co de Phone Number [facility] [address] [place] [phone] * (ABNORMAL) Iron And Total Iron Binding Capacity (11/05/2024 2:58 PM EDT) [facility] Iron 35 30 - 160 mcg/dL [facility] Total Iron Binding Capacity 302 228 - 428 mcg/dL [facility] Percent Iron Saturation 12(L) 15 - 50 % [facility] Unsaturated Iron Binding 267 ug/dL [facility] 11/05/2024 2:58 PM EDT 11/05/2024 2:58 PM EDT us Generic External Data Provider LAB BLOOD ORDERAB LES Final Result Performing Organization Address [facility] Co de Phone Number [facility] [address] [place] [phone] * (ABNORMAL) CBC (11/05/2024 2:58 PM EDT) [facility] White Blood Count 14.9(H) 4.8 - [...] LES Final Result [facility] [address] [place] [phone] * Colonoscopy (11/02/2024 9:48 AM EDT) Colonoscopy Normal [...] documented as of this encounter Care Teams Sales Agent Food Vending Service Relationship Specialty Start Date End Date Adal Terrell MD [address] [place] [address] PCP - General Internal Medicine 03/08/14 documented as of this encounter
[2025-04-25 16:10] LABS: MANUAL DIFF FLAG NO
[2025-04-25 16:25] LABS: Hematocrit 39.7 % (37.0-47.0); Hemoglobin 13.3 g/dl (12.0-16.0); Imm Gran Abs Auto 0.03 X10*3/uL (0.00-0.03); Imm Gran Pct Auto 0.3 % (0.0-0.4); Lymphocytes Absolute Auto 3.2 X10*3/uL (1.2-4.9); Mean Corpuscular HGB Conc 33.5 g/dl (31.0-35.0); Mean Corpuscular Hemoglobin 28.4 pg (27.0-33.0); Mean Corpuscular Volume 84.6 fL (80.0-98.0); NRBC Abs Auto 0.000 X10*3/uL (0.0-0.012); NRBC Pct Auto 0.0 /100WBC (0.0-0.2); Platelet Count 355 X10*3/uL (160-400); Red Blood Count 4.69 X10*6/uL (4.20-5.50); White Blood Count 11.0 X10*3/uL (4.8-10.8)
== END 2025-04-25 13:36 | disposition home or self-care (01) ==
LOC: HO.HHCL 13:35
PROVIDERS: PCP Internal Medicine; Visit Provider Internal Medicine
DX: D72.829 Elevated white blood cell count, unspecified (principal); R79.89 Other specified abnormal findings of blood chemistry
CPT/HCPCS: 36415; 82306; 85025

== ENCOUNTER 2025-05-05 07:56 | Day surgery (SDC) | payer MEDICAID, SELFPAY ==
--- OUTSIDE RECORDS SUMMARY | 2025-04-21 11:00 | XMS_ITS | Encounter Summary ---
Author Organization [employer] Address [address] [facility] 7t [place] [address] Care Team Providers Care Tradeshow Worker Name Role Phone Adal Terrell MD Primary Care Provide r Reason for Referral * Consultation (Routine) - Closed Specialty Diagnoses / Procedures Referred By Ruth chaidez Referred To Contact Physical Therapy Diagnoses Chronic right-sided low back pain with right-sided sciatica Adal Terrell MD [address] [place] [address] Phone: tel: fax: [facility] [place] [address] [place] [address] Phone: tel: fax: Referral ID Status Reason Start Date Expiration Date V isits Requested Visits Authorized [id number] Closed Specialty Services Required 04/22/2025 04/22/2026 20 20 Scheduling Instructions Please refer to Team Rehab in [place] Encounter Details Date Type Department Care Team ([facility] st Contact Info) Description 04/21/2025 11:00 AM EDT Office Visit [facility] [address] [place] [address] Adal Terrell MD [address] [place] [address] Chronic right-sided low back pain with right-sided sciatica (Primary Dx); Low vitamin D level; Leukocytosis, unspecified type Social History Tobacco Use Types Packs/Day Years [...] Access Q2 Not on file 03/26/2024 Comments No Sex and Gender Information Value Date Recorded Sex Assigned at Female 05/27/2022 10:17 AM EDT Legal Sex Female 10:17 AM EDT Gender Identity Female 05/27/2022 10:17 AM EDT Sexual Orientation Bisexual 05/27/2022 10 :17 AM EDT documented as of this encounter Last Filed Vital Signs Vital Sign Reading Time Taken Comments Blood Pressure 100/70 04/21/2025 10:57 AM EDT Pulse 121 04/21/2025 10:57 AM EDT Temperature 36 C (96.8 F) 04/21/2025 10:57 AM EDT Respiratory Rate 20 04/21/2025 10:57 AM EDT Oxygen Saturation 99% 04/21/2025 10:57 AM EDT Inhaled Oxygen Concentration - - Weight 80 kg (176 lb 6.4 oz) 04/21/2025 10:57 AM EDT Height 160 cm (5' 3 ) 04/21/2025 10:57 AM EDT Body Mass Index 31.25 04/21/2025 10:57 AM EDT documented in this encounter Progress Notes * Adal Mccarthy MD - 04/21/2025 11:00 AM EDT Pt with acute on chronic back pain, would benefit from a recliner to help with her pain SUBJECTIVE Nisa Hall is a 49 y.o. female who presents for No chief complaint on file.. Back Pain This is a recurrent problem. The current episode started more than 1 month ago. The problem occurs constantly. The problem has been gradually worsening since onset. The pain is present in the lumbar spine and sacro-iliac. The pain is at a severity of 8/10. The symptoms are aggravated by sitting, twisting and bending. Pertinent negatives include no abdominal pain, chest pain, fever or headaches. She has tried analgesics and bed rest for the symptoms. Review of Systems Constitutional: Negative for fever. HENT: Negative for sore throat. Respiratory: Negative for cough and shortness of breath. Cardiovascular: Negative for chest pain. Gastrointestinal: Negative for abdominal pain. Musculoskeletal: Positive for back pain. Neurological: Negative for headaches. Allergies[1] OBJECTIVE Vitals: 04/21/25 1057 BP: 100/70 Pulse: (!) 121 Resp: 20 Temp: 96.8 ??F (36 ??C) TempSrc: Temporal SpO2: 99% Weight: 176 lb 6.4 oz (80 kg) Height: 5' 3 (1.6 m) Physical Exam Vitals reviewed. Constitutional: Appearance: Normal appearance. HENT: Head: Normocephalic and atraumatic. Right Ear: External ear normal. Left Ear: External ear normal. Nose: Nose normal. Mouth/Throat: Mouth: Mucous membranes are moist. Eyes: Conjunctiva/sclera: Conjunctivae normal. Cardiovascular: Rate and Rhythm: Normal rate and regular rhythm. Pulmonary: Effort: Pulmonary effort is normal. Breath sounds: Normal breath sounds. Musculoskeletal: Lumbar back: Spasms present. Skin: General: Skin is warm. Neurological: Mental Status: She is alert. Mental status is at baseline. 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 Mild degenerative disc disease at L5-S1 with a mild broad-based disc bulge and posterior annular fissuring. Bilateral facet arthropathy. No significant central canal or neural foraminal stenosis. 2. Minimal left subarticular disc bulge at L4-L5 with bilateral facet arthropathy. No significant central canal or neural foraminal stenosis. Repeat MRI LS spine 12/30/2024 showed: Minimal degenerative change at L4-L5 and L5-S1. She has had PT and has been extensively evaluated at the [facility] pain clinic in the past as well Pt is on Oxycodone TID PRN. She cannot take NSAIDS or Tylenol. Cannot take Tizanidine, or Flexeril due to drug interactions Plan: Pt would like to try PT again that has been helpful in the past. She has requested we decrease the dose of her Oxycodone to BID instead of TID Pt will follow up with me after completing PT evaluation Pt has a narcotic contract with us Relevant Medications oxyCODONE (Roxicodone) 5 MG immediate release tablet Other Relevant Orders Referral to Physical Therapy Low vitamin D level Relevant Orders Vitamin D, 25-Hydroxy, Total, Immunoassay Leukocytosis Relevant Orders CBC auto differential Future Appointments Date Time Provider Department Center 05/23/2025 3:00 PM Marci Kennedy RN [facility] 05/31/2025 2:30 PM Adal Mccarthy MD MEDICINE [facility] [1] Allergies Allergen Reactions Amitriptyline Unknown Cortisone Escitalopram Unknown Levofloxacin Unknown Morphine Unknown Nsaids Sertraline Unknown Sulfamethoxazole Unknown Topiramate Unknown Trimethoprim Unknown documented in this encounter Miscellaneous Notes * Assessment & Plan Note - Adal Mccarthy MD - 04/21/2025 11:10 AM EDT Associated Problem(s): Chronic low back pain Pt here with c/o acute on chronic low back pain, intensity described as 8-9/10 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 Mild degenerative disc disease at L5-S1 with a mild broad-based disc bulge and posterior annular fissuring. Bilateral facet arthropathy. No significant central canal or neural foraminal stenosis. 2. Minimal left subarticular disc bulge at L4-L5 with bilateral facet arthropathy. No significant central canal or neural foraminal stenosis. Repeat MRI LS spine 12/30/2024 showed: Minimal degenerative change at L4-L5 and L5-S1. She has had PT and has been extensively evaluated at the [facility] pain clinic in the past as well Pt is on Oxycodone TID PRN. She cannot take NSAIDS or Tylenol. Cannot take Tizanidine, or Flexeril due to drug interactions Plan: Pt would like to try PT again that has been helpful in the past. She has requested we decrease the dose of her Oxycodone to BID instead of TID Pt will follow up with me after completing PT evaluation Pt has a narcotic contract with us documented in this encounter Plan of Treatment Upcoming Encounters Date Type Department Care Team (Late st Contact Info) Description 05/23/2025 3:00 PM EDT Clinical Support [facility] [address] [place] [address] Marci Kennedy, YANET [address] [place] [address] 05/31/2025 2:30 PM EST Office Visit [facility] [address] [place] [address] Adal Terrell MD [address] [place] [address] Scheduled Referrals Name Type Priority Associated Diagnoses Orde r Schedule Referral to Physical Therapy Outpatient Referral Routine Chronic right-sided low back pain with right-sided sciatica Expected: 04/21/2025 (Approximate), Expires: 04/21/2026 documented as of this encounter Procedures Procedure Name Priority Date/Time Associated Diagnosis Comments VITAMIN D,25-OH,TOTAL,IA Routine 04/25/2025 1:38 PM EDT Low vitamin D level CBC WITH AUTO DIFFERENTIAL Routine 04/25/2025 1:38 PM EDT Leukocytosis, unspecified type documented in this encounter Results * Vitamin D, 25-Hydroxy, Total, Immunoassay (04/25/2025 1:38 PM EDT) Vitamin D 25-OH Total 58.6 >30 ng/mL [facility] Comment: Health Based Reference Values*< 20 ng/mL [id number] ng/mL Insufficient> 30 ng/mL Sufficient*Bertram GOLDBERG. N Engl J Med. 2007;357:266-280There is no well-established upper level of normal vitamin Dlevels. Some laboratories use 50 ng/mL as an upper limit ofnormal. However, toxicity is patient-dependent and may occurat any level. Careful correlation with the patient'spresentation is necessary and, if there is concern forvitamin D toxicity, treatment should be consideredirrespective of the serum level.Care must be taken in interpreting Vitamin D [...] confirmed with another method such as LC-MS/MS. Blood Venous blood specimen / Unknown 04/25/2025 1:38 PM EDT 04/25/2025 4:05 PM EDT us Adal Mccarthy MD LAB BLOOD ORDERABLES Final Result [facility] [address] [place] [address] [phone] * (ABNORMAL) CBC auto differential (04/25/2025 1:38 PM EDT) White Blood Count 11.0(H) 4.8 - 10.8 X10*3/uL [facility] Red Blood Count 4.69 4.20 - 5.50 X10*6/uL [facility] Hemoglobin 13.3 12.0 - 16.0 g/dl [facility] Hematocrit 39.7 37.0 - 47.0 % [facility] Mean Corpuscular Volume 84.6 80.0 - 98.0 fL [facility] Mean Corpuscular Hemoglobin 28.4 27.0 - 33.0 pg [facility] Mean Corpuscular HGB Conc 33.5 31.0 - 35.0 g/dl [facility] Red Cell Distribution Width 13.7 11.0 - 16.0 % [facility] Platelet Count 355 160 - 400 X10*3/uL [facility] Mean Platelet Volume 9.7 9.4 - 12.3 fL [facility] Neutrophils Percent Auto 62.2 45 - 73 % [facility] Imm Gran Pct Auto 0.3 0.0 - 0.4 % [facility] Lymphocytes Percent Auto 29.2 20 - 40 % [facility] Monocytes Percent Auto 5.5 2 - 11 % [facility] Eosinophils Percent Auto 1.9 0 - 4 % [facility] Basophils Percent Auto 0.9 0 - 2 % [facility] NRBC Pct Auto 0.0 0.0 - 0.2 /100WBC [facility] Neutrophils Absolute Auto 6.8 2.0 - 8.3 x10*3/uL [facility] Imm Gran Abs Auto 0.03 0.00 - 0.03 X10*3/uL [facility] Lymphocytes Absolute Auto 3.2 1.2 - 4.9 X10*3/uL [facility] Monocytes Absolute Auto 0.6 0.1 - 1.2 X10*3/uL [facility] Eosinophils Absolute Auto 0.2 0.0 - 0.4 X10*3/uL [facility] Basophils Absolute Auto 0.1 0.0 - 0.2 X10*3/uL [facility] NRBC Abs Auto 0.000 0.0 - 0.012 X10*3/uL [facility] Blood Venous blood specimen / Unknown 04/25/2025 1:38 PM EDT 04/25/2025 4:05 PM EDT us Adal Mccarthy MD LAB BLOOD ORDERABLES Final Result Performing Organization Address City/State/[facility] Co de Phone Number [facility] [address] [place] [address] [phone] documented in this encounter Visit Diagnoses Diagnosis Chronic right-sided low back pain with right-sided sciatica- Primary Low vitamin D level Leukocytosis, unspecified type documented in this encounter Additional Health Concerns Assessment Noted Time PHQ-9 Depression Total Score: 0 12/01/19 25 10:42 AM EDT documented as of this encounter Care Teams Tradeshow Worker Relationship Specialty Start Date End Date Adal Terrell MD [address] [place] [phone] PCP - General Internal Medicine 03/08/14 documented as of this encounter
--- OUTSIDE RECORDS SUMMARY | 2025-04-29 14:43 | XMS_ITS | Encounter Summary ---
Author Organization [employer] Address [address] [facility] [address]t [place] [address] Care Team Providers Care Compensation Manager Name Role Phone Adal Terrell MD Primary Care Provide r Encounter Details Date Type Department Care Team ([facility] Contact Info) Description 02/16/[address] [facility] MEDICINE [address] [place], [place] [phone] ProviderTong MD Social History Tobacco Use Types [...] Description 05/23/2025 3:00 PM EDT Clinical Support [facility] CH[facility] MED & PEDS [address] [place] [address] Marci Kennedy, YANET 505 [place] [address] 05/31/2025 2:30 PM EST Office Visit [facility] [address] [place] [address] Adal Terrell MD [address] [place] [address] documented as of this encounter Procedures Procedure [...] documented as of this encounter Care Teams Compensation Manager Relationship Specialty Start Date End Date Adal Terrell MD [address] [place] [address] PCP - General Internal Medicine 03/08/14 documented as of this encounter
--- OUTSIDE RECORDS SUMMARY | 2025-04-29 14:43 | XMS_ITS | Encounter Summary ---
Author Organization [employer] Address [address] [facility] 7t [place] [address] Care Team Providers Care Associate Product Integrity Engineer Name Role Phone Adal Terrell MD Primary Care Provide r Reason for Visit * Reason Onset Date Comments Nurse Triage 03/05/2024 Encounter Details Date Type Department Care Team ([facility] Contact Info) Description 03/05/2024 Telephone [facility] MEDICINE [address] [place], [place] [phone] Adal Terrell MD [address] [place], [place] [phone] Nurse Triage Social History Tobacco Use Types [...] [facility] [address] [place] [address] Marci Kennedy, RN 505 [place] [address] 05/31/2025 2:30 PM EST Office Visit [facility] [address] [place] [address] Adal Terrell MD [address] [place] [address] documented as of this encounter Visit Diagnoses Not on filedocumented in this encounter Additional Health Concerns Assessment Noted Time PHQ-9 Depression Total Score: 5 01/27/20 24 10:54 AM EDT documented as of this encounter Care Teams Associate Product Integrity Engineer Relationship Specialty Start Date End Date Adal Terrell MD [address] [place] [address] PCP - General Internal Medicine 03/08/14 documented as of this encounter
--- OUTSIDE RECORDS SUMMARY | 2025-04-29 14:43 | XMS_ITS | Encounter Summary ---
Author Organization [employer] Address 75 [facility] 7t [place] [address] Care Team Providers Care Director Museum Or Zoo Name Role Phone Adal Terrell MD Primary Care Provide r Reason for Visit * Reason Onset Date Comments Med Refill 01/02/2023 Encounter Details Date Type Department Care Team ([facility] st Contact Info) Description 01/02/2023 Telephone [facility] MEDICINE [address] [place], [place] [phone] Adal Terrell MD 230 [place], [place] [phone] Med Refill Social History Tobacco Use Types [...] Description 05/23/2025 3:00 PM EDT Clinical Support [facility] MED & PEDS 505 [place] [address] Marci Kennedy, RN 505 [place] [address] 05/31/2025 2:30 PM EST Office Visit [facility] MEDICINE [address] [place] [address] Adal Terrell MD [address] [place] [address] documented as of this encounter Visit Diagnoses Not on filedocumented in this encounter Additional Health Concerns Assessment Noted Time PHQ-9 Depression Total Score: 0 09/10/19 11:00 AM EST documented as of this encounter Care Teams Director Museum Or Zoo Relationship Specialty Start Date End Date Adal Terrell MD [address] [place] [address] PCP - General Internal Medicine 03/08/14 documented as of this encounter
--- OUTSIDE RECORDS SUMMARY | 2025-04-29 14:43 | XMS_ITS | Encounter Summary ---
Author Organization [employer] Address [address] [facility] [address] 7t [place] [address] Care Team Providers Care Reimbursement Auditor Name Role Phone Adal Terrell MD Primary Care Provide r Encounter Details Date Type Department Care Team ([facility] Contact Info) Description 10/13/2024 Telephone [facility] MEDICINE 230 [place], [place] [phone] Adal Terrell MD 230 [place], [place] [phone] Social History Tobacco Use Types Packs/Day Years [...] Upcoming Encounters Date Type Department Care Team ([facility] st Contact Info) Description 05/23/2025 3:00 PM EDT Clinical Support [facility] CHC MED & PEDS [address] [place] [address] Marci Kennedy RN 505 [place] [address] 05/31/2025 2:30 PM EST Office Visit [facility] [address] [place] [address] Adal Terrell MD [address] [place] [address] documented as of this encounter Visit Diagnoses Not on filedocumented in this encounter Additional Health Concerns Assessment Noted Time PHQ-9 Depression Total Score: 5 01/27/20 24 10:54 AM EDT documented as of this encounter Care Teams Reimbursement Auditor Relationship Specialty Start Date End Date Adal Terrell MD [address] [place] [address] PCP - General Internal Medicine 03/08/14 documented as of this encounter
--- OUTSIDE RECORDS SUMMARY | 2025-04-29 14:43 | XMS_ITS | Encounter Summary ---
Author Organization [employer] Address 75 [facility] 7t [place] [address] Care Team Providers Care Residue Furnace Operator Name Role Phone Adal Terrell MD Primary Care Provide r Reason for Visit * Reason Onset Date Comments Med Refill 11/05/2022 Encounter Details Date Type Department Care Team (Late Contact Info) Description 11/05/2022 Telephone [facility] MEDICINE [address] [place], [place] [phone] Adal Terrell MD 230 [place] [address] Med Refill Social History Tobacco Use Types [...] Description 05/23/2025 3:00 PM EDT Clinical Support [facility] CHC MED & PEDS 505 [place] [address] Marci Kennedy, RN 505 [place] [address] 05/31/2025 2:30 PM EST Office Visit [facility] MEDICINE 230 [place] [address] Adal Terrell MD 230 [place] [address] documented as of this encounter Visit Diagnoses Not on filedocumented in this encounter Additional Health Concerns Assessment Noted Time PHQ-9 Depression Total Score: 0 09/10/19 11:00 AM EST documented as of this encounter Care Teams Residue Furnace Operator Relationship Specialty Start Date End Date Adal Terrell MD [address] [place] [address] PCP - General Internal Medicine 03/08/14 documented as of this encounter
--- OUTSIDE RECORDS SUMMARY | 2025-04-29 14:43 | XMS_ITS | Encounter Summary ---
Author Organization [employer] Address [address] [facility] 7t [place] [address] Care Team Providers Care Field Staff Name Role Phone Adal Terrell MD Primary Care Provide r Reason for Visit * Reason Onset Date Comments Med Refill 02/09/2024 Encounter Details Date Type Department Care Team ([facility] Contact Info) Description 02/09/2024 Telephone [facility] MEDICINE 230 [place], [place] [phone] Adal Terrell MD 230 [place] [address] Med Refill Social History Tobacco Use Types [...] immediate release tablet To be sent to: [id number] [place], [place] - [address] [facility] documented in this encounter Plan of Treatment Upcoming Encounters Date Type Department Care Team (Late st Contact Info) Description 05/23/2025 3:00 PM EDT Clinical Support [facility] CH[facility] MED & PEDS 505 [place] [address] Marci Kennedy RN 505 [place] [address] 05/31/2025 2:30 PM EST Office Visit [facility] MEDICINE 230 [place] [address] Adal Terrell MD 230 [place] [address] documented as of this encounter Visit Diagnoses Not on filedocumented in this encounter Additional Health Concerns Assessment Noted Time PHQ-9 Depression Total Score: 5 01/27/20 24 10:54 AM EDT documented as of this encounter Care Teams Field Staff Relationship Specialty Start Date End Date Adal Terrell MD [address] [place] [address] PCP - General Internal Medicine 03/08/14 documented as of this encounter
--- OUTSIDE RECORDS SUMMARY | 2025-04-29 14:43 | XMS_ITS | Encounter Summary ---
Author Organization [employer] Address 75 [facility] 7t [place] [address] Care Team Providers Care Art Gallery Director Name Role Phone Adal Terrell MD Primary Care Provide r Reason for Visit * Reason Onset Date Comments Med Refill 10/08/2024 Encounter Details Date Type Department Care Team ([facility] Contact Info) Description 10/08/2024 Telephone [facility] MEDICINE 230 [place], [place] [phone] Adal Terrell MD 230 [place] [address] Med Refill Social History Tobacco Use Types [...] immediate release tablet To be sent to: [id number] documented in this encounter Plan of Treatment Upcoming Encounters Date Type Department Care Team (Late st Contact Info) Description 05/23/2025 3:00 PM EDT Clinical Support [facility] CHC MED & PEDS 505 [place] [address] Marci Kennedy, YANET 505 [place] [address] 05/31/2025 2:30 PM EST Office Visit [facility] MEDICINE 230 [place] [address] Adal Terrell MD 230 [place] [address] documented as of this encounter Visit Diagnoses Not on filedocumented in this encounter Additional Health Concerns Assessment Noted Time PHQ-9 Depression Total Score: 5 01/27/20 24 10:54 AM EDT documented as of this encounter Care Teams Art Gallery Director Relationship Specialty Start Date End Date Adal Terrell MD 230 [place] [address] PCP - General Internal Medicine 03/08/14 documented as of this encounter
--- OUTSIDE RECORDS SUMMARY | 2025-04-29 14:43 | XMS_ITS | Encounter Summary ---
Author Organization [employer] Address 75 [facility] 7t [place] [address] Care Team Providers Care Sandblast Carver Name Role Phone Adal Terrell MD Primary Care Provide r Reason for Visit * Reason Onset Date Comments Med Refill 11/08/2024 Encounter Details Date Type Department Care Team ([facility] Contact Info) Description 11/08/2024 Telephone [facility] MEDICINE 230 [place], [place] [phone] Adal Terrell MD 230 [place] [address] Med Refill Social History Tobacco Use Types [...] immediate release tablet To be sent to: [id number] - [place], [place] - [address] documented in this encounter Plan of Treatment Upcoming Encounters Date Type Department Care Team (Late st Contact Info) Description 05/23/2025 3:00 PM EDT Clinical Support [facility] CH[facility] MED & PEDS 505 [place] [address] Marci Kennedy, YANET 505 [place] [address] 05/31/2025 2:30 PM EST Office Visit [facility] MED[facility]INE 230 [place], [place] [phone] Adal Terrell MD 230 [place] [address] documented as of this encounter Visit Diagnoses Not on filedocumented in this encounter Additional Health Concerns Assessment Noted Time PHQ-9 Depression Total Score: 5 01/27/20 24 10:54 AM EDT documented as of this encounter Care Teams Sandblast Carver Relationship Specialty Start Date End Date Adal Terrell MD 230 [place] [address] PCP - General Internal Medicine 03/08/14 documented as of this encounter
--- OUTSIDE RECORDS SUMMARY | 2025-04-29 14:43 | XMS_ITS | Encounter Summary ---
Author Organization [employer] Address 75 [facility] 7t [place] [address] Care Team Providers Care Block Cuber Name Role Phone Adal Terrell MD Primary Care Provide r Reason for Visit * Reason Onset Date Comments Appointment Request 03/19/2023 Encounter Details Date Type Department Care Team ([facility] Contact Info) Description 03/19/2023 Telephone [facility] MEDICINE 230 [place], [place] [phone] Adal Terrell MD 230 [place], [place] [phone] Appointment Request Social History Tobacco Use Types [...] EDT Tc from pt requesting to r/s [employer] visit on 03/21/2023 @ 11:30 am. Pt states due to an emergency she [place] to [place] to [place] and won't be back in two weeks. Please contact pt at [phone] documented in this encounter Plan of Treatment Upcoming Encounters Date Type Department Care Team (Late st Contact Info) Description 05/23/2025 3:00 PM EDT Clinical Support [facility] MED & PEDS 505 [place] [address] Marci Kennedy, RN 505 [place] [address] 05/31/2025 2:30 PM EST Office Visit [facility] MEDICINE 230 [place] [address] Adal Terrell MD 230 [place] [address] documented as of this encounter Visit Diagnoses Not on filedocumented in this encounter Additional Health Concerns Assessment Noted Time PHQ-9 Depression Total Score: 0 09/10/19 11:00 AM EST documented as of this encounter Care Teams Block Cuber Relationship Specialty Start Date End Date Adal Terrell MD 230 [place] [address] PCP - General Internal Medicine 03/08/14 documented as of this encounter
--- OUTSIDE RECORDS SUMMARY | 2025-04-29 14:44 | XMS_ITS ---
Author Organization [employer] Address 75 [facility] 7t [place] [address] Care Team Providers Care Clinical Nurse Specialist Name Role Phone Adal Terrell MD Primary Care Provide r CHW Complex Status:Enrolled (Active) Start date:11/29/2024 Enrollment date:11/29/2024 Enrollment reason:ADT Feed Overview ADT- [facility] ED 11/27/24 Case Team Name Relationship Phone Saitsh Bran(Responsible Staff) [phone] Continued Care and Services Coordination
--- OUTSIDE RECORDS SUMMARY | 2025-04-29 14:44 | XMS_ITS | Encounter Summary ---
Author Organization [employer] Address [address] [facility] 7t [place] [address] Care Team Providers Care Oyster Worker Name Role Phone Adal Terrell MD Primary Care Provide r Reason for Visit * Reason Onset Date Comments Results 08/13/2023 Encounter Details Date Type Department Care Team ([facility] Contact Info) Description 08/13/2023 Telephone [facility] MEDICINE 230 [place], [place] [phone] Adal Terrell MD 230 [place], [place] [phone] Results Social History Tobacco Use Types Packs/Day [...] 3:00 PM EDT Clinical Support [facility] CHC MED & PEDS 505 [place] [address] Marci Kennedy, RN 505 [place] [address] 05/31/2025 2:30 PM EST Office Visit [facility] MEDICINE 230 [place] [address] Adal Terrell MD 230 [place] [address] documented as of this encounter Visit Diagnoses Not on filedocumented in this encounter Additional Health Concerns Assessment Noted Time PHQ-9 Depression Total Score: 0 09/10/19 23 11:00 AM EST documented as of this encounter Care Teams Oyster Worker Relationship Specialty Start Date End Date Adal Terrell MD [address] [place] [address] PCP - General Internal Medicine 03/08/14 documented as of this encounter
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
--- OUTSIDE RECORDS SUMMARY | 2025-04-29 14:44 | XMS_ITS | Encounter Summary ---
Author Organization [employer] Address [address] [facility] [address] [place] [address] Care Team Providers Care Breed To Wean Production Technician Name Role Phone Adal Terrell MD Primary Care Provide r Encounter Details Date Type Department Care Team ([facility] Contact Info) Description 11/05/2024 Orders Only [facility] MED & [facility]EDS [address] [place], [place] [phone] ProviderTong MD Social History Tobacco Use Types [...] Description 05/23/2025 3:00 PM EDT Clinical Support [facility] [address] [place] [address] Marci Kennedy, YANET 505 [place] [address] 05/31/2025 2:30 PM EST Office Visit [facility] MEDICINE 230 [place] [address] Adal Terrell MD [address] [place] [address] documented as of this encounter Procedures Procedure Name Priority Date/Time Associated Diagnosis Comments IRON AND TOTAL IRON BINDING CAPACITY Routine 11/05/2024 2:58 PM EDT CBC Routine 11/05/2024 2:58 PM EDT FERRITIN Routine 11/05/2024 2:58 PM EDT HM COLONOSCOPY Routine 11/02/2024 9:48 AM EDT documented in this encounter Results * Ferritin (11/05/2024 2:58 PM EDT) Ferritin 134 10 - 250 ng/mL [facility] 11/05/2024 2:58 PM EDT 11/05/2024 2:58 PM EDT us Generic External Data Provider LAB BLOOD ORDERAB LES Final Result Performing Organization Address [facility] Co de Phone Number [facility] [address] [place] [phone] * (ABNORMAL) Iron And Total Iron Binding Capacity (11/05/2024 2:58 PM EDT) [facility] Iron 35 30 - 160 mcg/dL [facility] Total Iron Binding Capacity 302 228 - 428 mcg/dL [facility] Percent Iron Saturation 12(L) 15 - 50 % [facility] Unsaturated Iron Binding 267 ug/dL [facility] 11/05/2024 2:58 PM EDT 11/05/2024 2:58 PM EDT us Generic External Data Provider LAB BLOOD ORDERAB LES Final Result Performing Organization Address [facility] Co de Phone Number [facility] [address] [place] [phone] * (ABNORMAL) CBC (11/05/2024 2:58 PM EDT) [facility] White Blood Count 14.9(H) 4.8 - 10.8 X10*3/uL [facility] Red Blood Count 4.57 4.20 - 5.50 X10*6/uL [facility] Hemoglobin 12.9 12.0 - 16.0 g/dl [facility] Hematocrit 38.2 37.0 - 47.0 % [facility] Mean Corpuscular Volume 83.6 80.0 - 98.0 fL [facility] Mean Corpuscular Hemoglobin 28.2 27.0 - 33.0 pg [facility] Mean Corpuscular HGB Conc 33.8 31.0 - 35.0 g/dl [facility] Red Cell Distribution Width 15.6 11.0 - 16.0 % [facility] Platelet Count 352 160 - 400 X10*3/uL [facility] Mean Platelet Volume 9.4 9.4 - 12.3 fL [facility] NRBC Pct Auto 0.0 0.0 - 0.2 /100WBC [facility] NRBC Abs Auto 0.000 0.0 - 0.012 X10*3/uL [facility] 11/05/2024 2:58 PM EDT 11/05/2024 2:58 PM EDT us Generic External Data Provider LAB BLOOD ORDERAB LES Final Result [facility] [address] [place] [address] [phone] * Colonoscopy (11/02/2024 9:48 AM EDT) [...] documented as of this encounter Care Teams Breed To Wean Production Technician Relationship Specialty Start Date End Date Adal Terrell MD [address] [place] [address] PCP - General Internal Medicine 03/08/14 documented as of this encounter
--- OUTSIDE RECORDS SUMMARY | 2025-04-29 14:44 | XMS_ITS | Encounter Summary ---
Author Organization [employer] Address [address] [facility] 7t [place] [address] Care Team Providers Care Space Physicist Name Role Phone Adal Terrell MD Primary Care Provide r Reason for Visit * Reason Onset Date Comments Appointment Request 10/29/2022 Encounter Details Date Type Department Care Team ([facility] Contact Info) Description 10/29/2022 Telephone [facility] MEDICINE [address] [place], [place] [phone] Adal Terrell MD [address] [place], [place] [phone] Appointment Request Social History Tobacco Use Types [...] only with him. Please contact pt at [phone] documented in this encounter Plan of Treatment Upcoming Encounters Date Type Department Care Team (Late st Contact Info) Description 05/23/2025 3:00 PM EDT Clinical Support [facility] MED [facility]EDS [address] [place] [address] Marci Kennedy, RN 505 [place] [address] 05/31/2025 2:30 PM EST Office Visit [facility] MEDICINE [address] [place] [address] Adal Terrell MD [address] [place] [address] documented as of this encounter Visit Diagnoses Not on filedocumented in this encounter Additional Health Concerns Assessment Noted Time PHQ-9 Depression Total Score: 0 09/10/19 23 11:00 AM EST documented as of this encounter Care Teams Space Physicist Relationship Specialty Start Date End Date Adal Terrell MD [address] [place] [id number] PCP - General Internal Medicine 03/08/14 documented as of this encounter
--- OUTSIDE RECORDS SUMMARY | 2025-04-29 14:44 | XMS_ITS | Encounter Summary ---
Author Organization [employer] Address [address] [facility] 7t [place] [address] Care Team Providers Care Dredge Pump Operator Name Role Phone Adal Terrell MD Primary Care Provide r Reason for Visit * Reason Onset Date Comments Med Refill 12/08/2024 Encounter Details Date Type Department Care Team ([facility] Contact Info) Description 12/08/2024 Telephone [facility] MEDICINE 230 [place], [place] [phone] Adal Terrell MD [address] [place] [address] Med Refill Social History Tobacco Use Types [...] immediate release tablet To be sent to: [id number] [place], [place] - [address] [place] [address] documented in this encounter Plan of Treatment Upcoming Encounters Date Type Department Care Team ([facility] st Contact Info) Description 05/23/2025 3:00 PM EDT Clinical Support [facility] MED [facility]EDS 505 [place] [address] Marci Kennedy RN 505 [place] [address] 05/31/2025 2:30 PM EST Office Visit [facility] MEDICINE [address] [place], [place] [phone] Adal Terrell MD [address] [place], [place] [phone] documented as of this encounter Visit Diagnoses Not on filedocumented in this encounter Additional Health Concerns Assessment Noted Time PHQ-9 Depression Total Score: 0 12/01/19 25 10:42 AM EDT documented as of this encounter Care Teams Dredge Pump Operator Relationship Specialty Start Date End Date Adal Terrell MD [address] [place] [address] PCP - General Internal Medicine 03/08/14 documented as of this encounter
--- OUTSIDE RECORDS SUMMARY | 2025-04-29 14:44 | XMS_ITS | Encounter Summary ---
Author Organization [employer] Address [address] [facility] 7t [place] [address] Care Team Providers Care Lieutenant Colonel Name Role Phone Adal Terrell MD Primary Care Provide r Reason for Visit * Reason Comments Med Refill Encounter Details Date Type Department Care Team ([facility] Contact Info) Description 07/23/2023 Refill [facility] MEDICINE 230 [place], [place] [phone] Adal Terrell MD [address] [place], [place] [phone] Chronic right-sided low back pain with right-sided [...] [facility] [address] [place] [address] Marci Kennedy, RN 505 [place] [address] 05/31/2025 2:30 PM EST Office Visit [facility] MEDICINE 230 [place] [address] Adal Terrell MD [address] [place] [address] documented as of this encounter Visit Diagnoses Diagnosis 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
--- OUTSIDE RECORDS SUMMARY | 2025-04-29 14:44 | XMS_ITS ---
[facility] Name [facility] Encounters Encounter Type Encounter Reason Primary Diagnosis Location Date Ambulatory Contact with and (suspected) exposure to covid-19 [facility] 01/06/2022 Ambulatory [facility] 01/04/2022 Care Team Organization Name Specialty Phone Email Start Date End Da te [facility] 01/06/2022 01/06/2022 [facility] 01/06/2022
--- OUTSIDE RECORDS SUMMARY | 2025-04-29 14:44 | XMS_ITS | Encounter Summary ---
Author Organization [employer] Address [address] [facility] 7t [place] [address] Care Team Providers Care Publishing Manager Name Role Phone Adal Terrell MD Primary Care Provide r Reason for Visit * Reason Comments Med Refill Encounter Details Date Type Department Care Team ([facility] Contact Info) Description 04/05/2024 Refill [facility] MEDICINE 230 [place], [place] [phone] Ronel Thomas, ANP 230 [place] [address] COVID-19 Social History Tobacco Use Types Packs/Day [...] [facility] st Contact Info) Description 05/23/2025 3:00 PM EDT Clinical Support [facility] MED & PEDS [address] [place] [address] Marci Kennedy, RN [address] [place] [address] 05/31/2025 2:30 PM EST Office Visit [facility] MEDICINE [address] [place] [address] Adal Terrell MD [address] [place] [address] documented as of this encounter Visit Diagnoses Diagnosis COVID-19 documented in this encounter Additional Health Concerns Assessment Noted Time PHQ-9 Depression Total Score: 5 01/27/20 24 10:54 AM EDT documented as of this encounter Care Teams Publishing Manager Relationship Specialty Start Date End Date Adal Terrell MD [address] [place] [address] PCP - General Internal Medicine 03/08/14 documented as of this encounter
--- OUTSIDE RECORDS SUMMARY | 2025-04-29 14:44 | XMS_ITS | Encounter Summary ---
Author Organization [email or web address] Address [address] [facility] [address]t [place] [address] Care Team Providers Care Oil Field Operator Name Role Phone Adal Terrell MD Primary Care Provide r Reason for Visit * Reason Comments Med Refill Encounter Details Date Type Department Care Team ([facility] Contact Info) Description 07/03/2023 Refill [facility] MED [facility] PEDS [address] [place], [place] [phone] Adal Terrell MD 230 [place], [place] [phone] Low vitamin D level Social History Tobacco [...] Description 05/23/2025 3:00 PM EDT Clinical Support [facility] MED & PEDS [address] [place] [address] Marci Kennedy, RN 505 [place] [address] 05/31/2025 2:30 PM EST Office Visit [facility] MEDICINE [address] [place] [address] Adal Terrell MD [address] [place] [address] documented as of this encounter Visit Diagnoses Diagnosis Low vitamin D level documented in this encounter Additional Health Concerns Assessment Noted Time PHQ-9 Depression Total Score: 0 09/10/19 23 11:00 AM EST documented as of this encounter Care Teams Oil Field Operator Relationship Specialty Start Date End Date Adal Terrell MD 230 [place] [address] PCP - General Internal Medicine 03/08/14 documented as of this encounter
--- OUTSIDE RECORDS SUMMARY | 2025-04-29 14:44 | XMS_ITS | Encounter Summary ---
Author Organization [employer] Address [address] [facility] 7t [place] [address] Care Team Providers Care Vector Control Specialist Name Role Phone Adal Terrell MD Primary Care Provide r Reason for Visit * Reason Onset Date Comments Med Refill 01/04/2025 Encounter Details Date Type Department [facility] ([facility] Contact Info[facility] Description 01/04/2025 Telephone [facility] MEDICINE 230 [place], [place] [phone] Adal Terrell MD 230 [place], [place] [phone] Med Refill Social History Tobacco Use Types [...] immediate release tablet To be sent to: [id number] - [place], [place] - [address] [facility] documented in this encounter Plan of Treatment Upcoming Encounters Date Type Department Care Team ([facility] st Contact Info) Description 05/23/2025 3:00 PM EDT Clinical Support [facility] MED [facility] PEDS [address] [place] [address] Marci Kennedy, YANET 505 [place] [address] 05/31/2025 2:30 PM EST Office Visit [facility] MEDICINE 230 [place], [place] [phone] Adal Terrell MD 230 [place] [address] documented as of this encounter Visit Diagnoses Not on filedocumented in this encounter Additional Health Concerns Assessment Noted Time PHQ-9 Depression Total Score: 0 12/01/19 25 10:42 AM EDT documented as of this encounter Care Teams Vector Control Specialist Relationship Specialty Start Date End Date Adal Terrell MD 230 [place] [address] PCP - General Internal Medicine 03/08/14 documented as of this encounter
--- OUTSIDE RECORDS SUMMARY | 2025-04-29 14:44 | XMS_ITS | Encounter Summary ---
Author Organization [employer] Address [address] [facility] [address] [place] [address] Care Team Providers Care Flight Attendant Name Role Phone Adal Terrell MD Primary Care Provide r Encounter Details Date Type Department Care Team ([facility] Contact Info) Description 02/05/2024 Orders Only [facility] MEDICINE [address] [place], [place] [phone] Adal Terrell MD 230 [place], [place] [phone] Social History Tobacco Use Types Packs/Day Years [...] 3:00 PM EDT Clinical Support [facility] MED & PEDS [address] [place] [address] Marci Kennedy, RN 505 [place], [place] [phone] 05/31/2025 2:30 PM EST Office Visit [facility] MEDICINE [address] [place] [address] Adal Terrell MD [address] [place] [address] documented as of this encounter Procedures Procedure [...] as of this encounter Care Teams Flight Attendant Relationship Specialty Start Date End Date Adal Terrell MD [address] [place] [address] PCP - General Internal Medicine 03/08/14 documented as of this encounter
--- OUTSIDE RECORDS SUMMARY | 2025-04-29 14:44 | XMS_ITS | Encounter Summary ---
Author Organization [employer] Address [address] [facility] 7t [place] [address] Care Team Providers Care Route Inspector Name Role Phone Adal Terrell MD Primary Care Provide r Reason for Visit * Reason Onset Date Comments Letter for School/Work 12/12/2023 Appointment Request 12/12/2023 Encounter Details Date Type Department Care Team ([facility] Contact Info) Description 12/12/2023 Telephone [facility] MEDICINE 230 [place], [place] [phone] Adal Terrell MD 230 [place], [place] [phone] Letter for School/Work; Appointment Request Social History [...] [facility] [address] [place] [address] Marci Kennedy, YANET 505 [place] [address] 05/31/2025 2:30 PM EST Office Visit [facility] MEDICINE [address] [place] [address] Adal Terrell MD [address] [place] [address] documented as of this encounter Visit Diagnoses Not on filedocumented in this encounter Additional Health Concerns Assessment Noted Time PHQ-9 Depression Total Score: 0 09/10/19 23 11:00 AM EST documented as of this encounter Care Teams Route Inspector Relationship Specialty Start Date End Date Adal Terrell MD 230 [place] [address] PCP - General Internal Medicine 03/08/14 documented as of this encounter
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
--- NOTE | 2025-05-04 11:34 | P.CONAN_ITS ---
Documented by User: Tawny Montano NP 05/04/25 11:35 HPI - Anesthesia Eval Consult details Narrative: 49 yr old female for colonoscopy Asthma +Marijuana use YUNG: cannot tolerate CPAP PMFSH Active Problems Active Problems: All Active Problems RLS (restless legs syndrome) (Acute) Atrophic gastritis (Acute) Lateral epicondylitis (Acute) Periodic limb movements of sleep (Acute) Regurgitation of food (Acute) Acid reflux (Acute) Chronic diarrhea (Acute) Fatigue due to sleep pattern disturbance (Acute) Varicose veins of both lower extremities with inflammation (Acute) Sleep apnea (Acute) Other cervical disc degeneration at C5-C6 level (Acute) Chronic pain syndrome (Acute) Cervicalgia (Acute) Cervical radiculopathy (Acute) Cervical disc disorder (Acute) Snoring (Acute) Hypersomnia (Acute) Left knee pain (Acute) Fibromyalgia (Acute) Hepatic steatosis (Acute) Past Medical History Medical History Sleep apnea Chronic back pain GERD (gastroesophageal reflux disease) Cervical radiculopathy Anemia Hx: UTI (urinary tract infection) Fatty liver Hepatic steatosis Migraines Asthma Recurrent UTI Adhesive capsulitis of right shoulder Fibromyalgia Unspecified internal derangement of unspecified knee Family History Family History Father No problems noted. Mother No problems noted. Maternal Aunt Breast cancer Paternal Uncle Cancer Family history of problems with anesthesia: No Surgical History Surgical History History of esophagogastroduodenoscopy (EGD) H/O colonoscopy History of left oophorectomy Previous section History of partial hysterectomy History of Problems with Anesthesia: No Social History Social History Household Members: None Housing: Apartment Are you a primary women's health care nurse practitioner to a significant other at home: No Do you presently have visiting nurse or other home services: No Alcohol intake: never Patient Tobacco Use Status: Former Tobacco user Tobacco use type: Cigarette Second Hand Smoke Exposure: No Use of substances other than those prescribed or required for medical reasons: Yes Substance Use Type: Marijuana Are you DNR?: No Advance Directives: No Advance Directives Information Provided: Yes : No Poor oral hygiene: No service: No Current occupational status: unemployed Current occupation: [employer] - [employer] Meds Allergies Allergy/AdvReac Type Severity Reaction Status Date / Time ibuprofen Allergy Severe Abdominal Verified 05/05/25 08:47 Pain levofloxacin (From Levaquin) Allergy Intermediate INTERACTED Verified 12/29/24 13:55 W/ANTI DEPRESSANT morphine (MORPHINE) Allergy Intermediate ITCHING, Verified 12/29/24 13:55 HIVES ketorolac Allergy Mild Vomiting Verified 05/05/25 08:47 trazodone (TRAZODONE) Allergy Mild TACHYCARDIA Verified 12/29/24 13:55 amitriptyline Allergy Unknown Unknown Verified 12/29/24 13:55 citalopram Allergy Unknown Unknown Verified 12/29/24 13:55 escitalopram Allergy Unknown Unknown Verified 12/29/24 13:55 sertraline Allergy Unknown Unknown Verified 12/29/24 13:55 Sulfa (Sulfonamide Allergy Unknown Unknown Verified 12/29/24 13:55 Antibiotics) topiramate Allergy Unknown Unknown Verified 12/29/24 13:55 trimethoprim Allergy Unknown Unknown Verified 12/29/24 13:55 zolpidem Allergy Unknown Unknown Verified 12/29/24 13:55 NSAIDS (Non-Steroidal AdvReac Severe HYPEREMESIS Verified 12/29/24 13:55 Anti-Inflamma (NSAIDS (NON-STEROIDAL ANTI-INFLAMMA) adhesive tape AdvReac Blister Verified 12/29/24 13:55 From Celexa Allergy Intermediate INTERACTS Uncoded 12/29/24 13:55 W/LEVAQUIN ANTIDEPRESENT Allergy Unknown Unknown Uncoded 12/29/24 13:55 Sulfamethoxazole Allergy Unknown Unknown Uncoded 12/29/24 13:55 toradol Allergy Unknown Unknown Uncoded 12/29/24 13:55 From Ambien AdvReac Severe TACHYCARDIA Uncoded 12/29/24 13:55 From Ultram AdvReac Severe TACHYCARDIA Uncoded 12/29/24 13:55 From ZOLOFT AdvReac Severe TACHYCARDIA Uncoded 12/29/24 13:55 From TORADOL AdvReac Mild STOMACH Uncoded 12/29/24 13:55 UPSET Home Medications ?Medication ?Instructions ?Recorded ?Confirmed ?Last Taken ?Type albuterol sulfate 2.5 mg/0.5 mL 5 mg inhalation QID 11/02/24 Unknown History solution for nebulization montelukast 10 mg tablet 10 mg PO DAILY 05/17/2003/21 Unknown History (Singulair) omeprazole 40 mg capsule,delayed 40 mg PO BID 05/24/21 11/02/24 Unknown History release blood sugar diagnostic (FreeStyle #10 ea 07/02/2103/21 Unknown History Lite Strips) lancets 33 gauge (TRUEplus Lancets) #100 ea 07/02/21 0 11/02/24 Unknown History albuterol sulfate 90 mcg/actuation 2 puff PO Q4-6H PRN Shortness Of 12/24/21 11/02/24 Unknown History aerosol inhaler (ProAir HFA) Breath oxycodone 5 mg tablet 5 mg PO BID PRN 11/17/24 Un known History Assessment and Plan Final Anesthetic Review Family History of Problems with Anesthesia: No History of Problems with Anesthesia: No Documented by User: aJsmyn Henning MD 05/05/25 09:16 [facility] Past Medical History Medical History Sleep apnea Chronic back pain GERD (gastroesophageal reflux disease) Cervical radiculopathy Anemia Hx: UTI (urinary tract infection) Fatty liver Hepatic steatosis Migraines Asthma Recurrent UTI Adhesive capsulitis of right shoulder Fibromyalgia Unspecified internal derangement of unspecified knee Family History Family History Father No problems noted. Mother No problems noted. Maternal Aunt Breast cancer Paternal Uncle Cancer Surgical History Surgical History History of esophagogastroduodenoscopy (EGD) H/O colonoscopy History of left oophorectomy Previous section History of partial hysterectomy Social History Social History Household Members: None Housing: Apartment Are you a primary women's health care nurse practitioner to a significant other at home: No Do you presently have visiting nurse or other home services: No Alcohol intake: never Patient Tobacco Use Status: Former Tobacco user Tobacco use type: Cigarette Second Hand Smoke Exposure: No Use of substances other than those prescribed or required for medical reasons: Yes Substance Use Type: Marijuana Are you DNR?: No Advance Directives: No Advance Directives Information Provided: Yes : No Poor oral hygiene: No service: No Current occupational status: unemployed Current occupation: [employer] - [employer] Meds Allergies Allergy/AdvReac Type Severity Reaction Status Date / Time ibuprofen Allergy Severe Abdominal Verified 05/05/25 08:47 Pain levofloxacin (From Levaquin) Allergy Intermediate INTERACTED Verified 12/29/24 13:55 W/ANTI DEPRESSANT morphine (MORPHINE) Allergy Intermediate ITCHING, Verified 12/29/24 13:55 HIVES ketorolac Allergy Mild Vomiting Verified 05/05/25 08:47 trazodone (TRAZODONE) Allergy Mild TACHYCARDIA Verified 12/29/24 13:55 amitriptyline Allergy Unknown Unknown Verified 12/29/24 13:55 citalopram Allergy Unknown Unknown Verified 12/29/24 13:55 escitalopram Allergy Unknown Unknown Verified 12/29/24 13:55 sertraline Allergy Unknown Unknown Verified 12/29/24 13:55 Sulfa (Sulfonamide Allergy Unknown Unknown Verified 12/29/24 13:55 Antibiotics) topiramate Allergy Unknown Unknown Verified 12/29/24 13:55 trimethoprim Allergy Unknown Unknown Verified 12/29/24 13:55 zolpidem Allergy Unknown Unknown Verified 12/29/24 13:55 NSAIDS (Non-Steroidal AdvReac Severe HYPEREMESIS Verified 12/29/24 13:55 Anti-Inflamma (NSAIDS (NON-STEROIDAL ANTI-INFLAMMA) adhesive tape AdvReac Blister Verified 12/29/24 13:55 From Celexa Allergy Intermediate INTERACTS Uncoded 12/29/24 13:55 W/LEVAQUIN ANTIDEPRESENT Allergy Unknown Unknown Uncoded 12/29/24 13:55 Sulfamethoxazole Allergy Unknown Unknown Uncoded 12/29/24 13:55 toradol Allergy Unknown Unknown Uncoded 12/29/24 13:55 From Ambien AdvReac Severe TACHYCARDIA Uncoded 12/29/24 13:55 From Ultram AdvReac Severe TACHYCARDIA Uncoded 12/29/24 13:55 From ZOLOFT AdvReac Severe TACHYCARDIA Uncoded 12/29/24 13:55 From TORADOL AdvReac Mild STOMACH Uncoded 12/29/24 13:55 UPSET Home Medications ?Medication ?Instructions ?Recorded ?Confirmed ?Last Taken ?Type albuterol sulfate 2.5 mg/0.5 mL 5 mg inhalation QID 11/02/24 Unknown History solution for nebulization montelukast 10 mg tablet 10 mg PO DAILY 05/17/2003/21 Unknown History (Singulair) omeprazole 40 mg capsule,delayed 40 mg PO BID 05/24/21 11/02/24 Unknown History release blood sugar diagnostic (FreeStyle #10 ea 07/02/2103/21 Unknown History Lite Strips) lancets 33 gauge (TRUEplus Lancets) #100 ea 07/02/21 0 11/02/24 Unknown History albuterol sulfate 90 mcg/actuation 2 puff PO Q4-6H PRN Shortness Of 12/24/21 11/02/24 Unknown History aerosol inhaler (ProAir HFA) Breath oxycodone 5 mg tablet 5 mg PO BID PRN 11/17/24 Un known History Exam Airway Mallampati Class: II (caps latrally) TM Dist: >3cm Neck ROM: Full Heart: rrr Lungs: cta Assessment and Plan Assessment Anesthesia Assessment: Anesthesia Plan Discussed and Chart Reviewed Final Anesthetic Review NPO: Yes ASA Class: II Final Preanesthetic Review: No Changes in Pt Med Stat, Meds/Allgs Chart Reviewed and Consent Obtained/Reviewed Patient Risk: Low Procedure Risk: Low Anesthetic Plan Anesthetic Plan: MAC: Disposition: Standard PACU
[2025-05-05 08:47] VITALS: BMI 30.7
[2025-05-05 08:49] LABS: UPreg QC Valid YES
[2025-05-05 08:56] VITALS: BP 107/60; PULSE 64; RESP 16; TEMP 36.5; O2SAT 100
[2025-05-05] MEDS: Lactated Ringers 1,000 ML 100 ML IVCONT (09:15)
--- NOTE | 2025-05-05 09:20 | MHC.SHP ---
Pre-Procedural Eval Section A - 24 Hr Update-Section A only Date of Service: 05/05/25 Section B - Complete if H&P > 30 days Chief Complaint: Hx of polyps Details of Present Illness: Sleep apnea Chronic back pain GERD (gastroesophageal reflux disease) Cervical radiculopathy Anemia Hx: UTI (urinary tract infection) Fatty liver Hepatic steatosis Migraines Asthma Recurrent UTI Adhesive capsulitis of right shoulder Fibromyalgia Unspecified internal derangement of unspecified knee Surgical History History of esophagogastroduodenoscopy (EGD) H/O colonoscopy History of left oophorectomy Previous section History of partial hysterectomy Present Medications: see Short Stay Collaborative assessment Allergies: Allergies Allergy/AdvReac Type Severity Reaction Status Date / Time ibuprofen Allergy Severe Abdominal Verified 05/05/25 08:47 Pain levofloxacin (From Levaquin) Allergy Intermediate INTERACTED Verified 12/29/24 13:55 W/ANTI DEPRESSANT morphine (MORPHINE) Allergy Intermediate ITCHING, Verified 12/29/24 13:55 HIVES ketorolac Allergy Mild Vomiting Verified 05/05/25 08:47 trazodone (TRAZODONE) Allergy Mild TACHYCARDIA Verified 12/29/24 13:55 amitriptyline Allergy Unknown Unknown Verified 12/29/24 13:55 citalopram Allergy Unknown Unknown Verified 12/29/24 13:55 escitalopram Allergy Unknown Unknown Verified 12/29/24 13:55 sertraline Allergy Unknown Unknown Verified 12/29/24 13:55 Sulfa (Sulfonamide Allergy Unknown Unknown Verified 12/29/24 13:55 Antibiotics) topiramate Allergy Unknown Unknown Verified 12/29/24 13:55 trimethoprim Allergy Unknown Unknown Verified 12/29/24 13:55 zolpidem Allergy Unknown Unknown Verified 12/29/24 13:55 NSAIDS (Non-Steroidal AdvReac Severe HYPEREMESIS Verified 12/29/24 13:55 Anti-Inflamma (NSAIDS (NON-STEROIDAL ANTI-INFLAMMA) adhesive tape AdvReac Blister Verified 12/29/24 13:55 From Celexa Allergy Intermediate INTERACTS Uncoded 12/29/24 13:55 W/LEVAQUIN ANTIDEPRESENT Allergy Unknown Unknown Uncoded 12/29/24 13:55 Sulfamethoxazole Allergy Unknown Unknown Uncoded 12/29/24 13:55 toradol Allergy Unknown Unknown Uncoded 12/29/24 13:55 From Ambien AdvReac Severe TACHYCARDIA Uncoded 12/29/24 13:55 From Ultram AdvReac Severe TACHYCARDIA Uncoded 12/29/24 13:55 From ZOLOFT AdvReac Severe TACHYCARDIA Uncoded 12/29/24 13:55 From TORADOL AdvReac Mild STOMACH Uncoded 12/29/24 13:55 UPSET Review of Systems Review of Systems Comment: Ten point ROS negative Exam Exam Comment: Gen appear: No acute distress HEENT: no icterus Chest: No overt resp distress Abd: soft, nontender, nondistended Psych: Stable affect, answering questions appropriately Neuro: A/Ox3 noted to move all extremities spontaneously Ext: no peripheral edema Plan Diagnosis/Plan: Unchanged I have reviewed the history and physical and performed a pertinent physical examination on my patient. No changes have occurred unless specified. Time Spent With Patient Time: Total time managing care of this patient today ____ minutes.
--- NOTE | 2025-05-05 10:11 | P.OPN-COLO_ITS ---
Colonoscopy Operative Note Operative Note Date of Service: 05/05/25 Narrative: Procedure: Colonoscopy Indication: Personal history of polyps Endoscopist: Vee Marques MD Anesthesia Provider: Jasmyn Ordaz MD Anesthesia type: MAC Instrument: Olympus [id number]-H190L Consent: Indication, risks vs benefits, and alternatives were discussed with the patient who gave written informed consent to proceed. EKG, pulse, pulse oximetry and blood pressure were monitored throughout the procedure. Please see anesthesia flowsheet. Procedure: The patient was brought to the procedure room and placed in the left lateral decubitus position. IV medications were administered by the anesthesia provider in attendance. A digital rectal exam was performed which was normal. A distal attachment cap was affixed to the tip of the colonoscope which was then inserted through the anus and advanced through the colon to the cecum at 75 cm,and terminal ileum. Appendiceal orifice and ileocecal valve were identified. Mucosa was carefully examined under high definition white light as the instrument was slowly withdrawn in a retrograde panoramic fashion. Retroflexion was performed in rectum. The procedure was not difficult. There were no immediate obvious complications. The quality of the prep was BBPS: 2+3+3 = adequate Withdrawal time 17 minutes. Limitations: No limitations. Findings: Mucosa: Normal to cecum and terminal ileum. Protruding lesions: * 1 semi-pedunculated polyp of size 8 mm in hepatic flexure. Hot snare polypectomy was performed. The polyp was completely removed and retrieved. x2 Resolution 360 Endoclips were placed at the polypectomy site. * 1 sessile polyp of size 2 mm in descending colon. Cold snare polypectomy was performed. The polyp was completely removed and retrieved. * 1 sessile polyp of size 6 mm in rectum. Cold snare polypectomy was performed. The polyp was completely removed and retrieved. * Large internal hemorrhoids without stigmata of recent bleeding. Impression: 1. Normal colon mucosa 2. Total of 3 polyps removed 3. External and internal hemorrhoids Recommendations: - Follow path results. - Repeat colonoscopy in 3 years if polyps are adenomas.
[2025-05-05 10:13] VITALS: BP 85/47; PULSE 86; RESP 16; TEMP 36.8; O2SAT 100
[2025-05-05 10:28] VITALS: BP 101/48; PULSE 67; RESP 16; O2SAT 100
[2025-05-05 10:45] VITALS: BP 102/58; PULSE 68; RESP 13; TEMP 36.6; O2SAT 100
== END 2025-05-05 11:26 | disposition home or self-care (01) ==
PROVIDERS: Nurse Practitioner; PCP Internal Medicine; Visit Provider Internal Medicine
PROC: 0DJD8ZZ Inspection of Lower Intestinal Tract, Via Natural or Artificial Opening Endoscopic (ICD-10-PCS; CPT 45378; principal; 2025-05-05 10:00)
DX: Z86.0109 Personal history of other colon polyps (principal); K21.9 Gastro-esophageal reflux disease without esophagitis; Z80.0 Family history of malignant neoplasm of digestive organs; K29.40 Chronic atrophic gastritis without bleeding; K52.9 Noninfective gastroenteritis and colitis, unspecified; R11.10 Vomiting, unspecified; D12.3 Benign neoplasm of transverse colon; D12.5 Benign neoplasm of sigmoid colon; K63.5 Polyp of colon
CPT/HCPCS: 45380; 45385; 45384; 81025; 88305; J2003; J2704

== ENCOUNTER → 2025-05-05 07:56 | Outpatient (BNV) | payer MEDICAID, SELFPAY | PROVIDERS: PCP Internal Medicine; Visit Provider Internal Medicine | DX: Z86.0100 Personal history of colon polyps, unspecified (principal); D12.4 Benign neoplasm of descending colon; D12.8 Benign neoplasm of rectum; D12.3 Benign neoplasm of transverse colon | CPT/HCPCS: 45385 ==